=== PATIENT | female | born 1965 | race Caucasian/White ===

== ENCOUNTER 2022-12-24 16:04 | Inpatient (IN) ==
--- NOTE | 2022-12-24 16:24 | ED Triage Note ---
Date of Service December 24, 2022 History of Present Illness This patient was briefly evaluated while in triage. An abbreviated physical exam was performed. This patient is a 57-year-old Female who presents to the ED for evaluation of a low hemoglobin. She was seen at [facility] today and had labs that showed a hemoglobin of 6. She reports she has had rectal bleeding for "years" but it has become worse for the past 6 months. She reports some dizziness. Physical Exam VITALS: Vitals are noted on the nurse's note and reviewed by myself. GENERAL: This is a 57-year-old female, in no acute distress, sitting in triage chair. SKIN: The skin was without rashes. Pallor noted. HEART: Regular rate and rhythm without murmurs gallops or rubs. LUNGS: Clear to auscultation bilaterally without wheezes, rales or rhonchi. NEURO: Patient was alert and oriented to person place and time. Initial orders for labs and / or imaging were placed and patient was placed in the waiting area until a bed is available. Please see further documentation for the full ED course. MDM / Impression Impression Impression: Acute GI bleeding, Anemia Impression: Anemia Qualifiers: Anemia type: unspecified type Qualified Code(s): D64.9 - Anemia, unspecified
--- NOTE | 2022-12-24 16:38 | Emergency Department Note ---
Impression & Plan Acute GI bleeding, Anemia ED Provider Note NAME: ROSA ELENA BA AGE: 57 SEX: F : 1965 ARRIVES VIA: Walk-In INFORMANT: Patient, ED PROVIDER(S): Drake Gonzales DO CHIEF COMPLAINT: GI bleeding HPI: The patient is a 57-year-old female who presented to the emergency department for an evaluation of GI bleeding. The patient has been having symptoms for proxy 1 year. She has not had a colonoscopy but she is scheduled for colonoscopy with roll forger at [facility]. The patient states that she had outpatient labs done and sent to the emergency department for an evaluation because her hemoglobin is very low. She denies having any vomiting. She denies having any hematemesis. She denies having any abdominal pain. She denies having any chest pain or difficulty breathing. The patient states that she did not have a rectal exam done recently but she has had bright red bleeding from her stools over the last couple days. ROS: See above HPI for pertinent positives & negatives. A total of 10 systems reviewed and were otherwise negative. PAST MEDICAL HISTORY: See Below PAST SURGICAL HISTORY: See Below FAMILY HISTORY: See Below SOCIAL HISTORY: See Below HOME MEDICATIONS: See Below ALLERGIES: See Below VITALS: See Below PHYSICAL EXAMINATION: GENERAL: Patient is awake alert in no acute distress patient is resting comfortably and showing no signs of anxiety EYES: The conjunctivae are pale. The pupils are round and reactive. EARS, NOSE, MOUTH AND THROAT: The nose is without any evidence of any deformity. NECK: The neck is nontender and supple. RESPIRATORY: Diminished breath sounds are noted in the right lung field. There is no tachypnea or conversational dyspnea. There is no specific wheezing. CARDIOVASCULAR: Regular rate and rhythm noted there no murmurs rubs or gallops normal S1 normal S2. GASTROINTESTINAL: The abdomen is soft. Abdomen is nontender. MUSCULOSKELETAL/EXTREMITIES: There is no evidence of gross deformity full range of motion is noted in the hips and shoulders. SKIN: There is no obvious evidence of any rash. There are no petechiae, pallor or cyanosis noted. NEUROLOGIC: Patient is awake alert and oriented x3 MEDICAL DECISION MAKING: The patient is a 57-year-old female who presented to the emergency department at the request of her primary care physician for an evaluation of ongoing GI bleeding. The patient's had lower GI bleeding for quite some time. She was seen and had outpatient labs which revealed a significant anemia. She was sent to the emergency department for further evaluation. I discussed the patient's laboratory results with her. I discussed her condition with the on-call [facility]. They have agreed to evaluate the patient in the emergency department for further management and disposition. Triage Nursing notes reviewed. Prior medical records reviewed Vital Signs: reviewed and remarkable for elevated blood pressure. Differential diagnosis: Diverticulosis, AVM, coagulopathy, colitis, inflammatory bowel disease, malignancy, Linda-Anderson tear, esophagitis, peptic ulcer disease, variceal bleed, gastritis, epistaxis, fissure, hemorrhoids, as well as other pathologies. ER treatment provided: See below Diagnostics interpreted by me: ECG: EKG was obtained in the emergency department. My interpretation is normal sinus rhythm at 90 bpm. There is no ectopy. There is no acute ST segment abnormalities noted. No previous tracing was available. Cardiac Monitoring: An order was placed for continuous cardiac monitoring. The monitor shows a rate of 76 bpm with sinus rhythm. Laboratory studies: As stated above and show below. Imaging studies: See below. Consultation(s): I discussed this case with Latoya who is on-call for the [facility] group. Past Med/Surg History Medical History Alcohol abuse Alcohol intoxication Anxiety Bipolar affect, depressed Depression Essential hypertension Feeling suicidal History of peptic ulcer Hypokalemia Hypomagnesemia Hyponatremia Hyponatremia Seizure Surgical History S/P D&C (status post dilation and curettage) Social History Smoking Status: Former smoker Preferred Language: Chinese Feels Safe at Home: Yes Allergies Allergies Allergy/AdvReac Type Severity Reaction Status Date / Time No Known Allergies Allergy Unverified 12/24/22 17:07 Home Meds Home Medications Medication Instructions Recorded Confirmed buspirone 7.5 mg tablet 15 mg PO BID 12/24/22 12/24/22 lisinopril 40 mg tablet 40 mg PO DAILY 12/24/22 12/24/22 magnesium oxide 400 mg (241.3 mg 800 mg PO DAILY 12/24/22 12/24/22 magnesium) tablet metoprolol tartrate 25 mg tablet 25 mg PO BID 12/24/22 12/24/22 multivitamin 1 tab PO DAILY 12/24/22 12/24/22 sertraline 100 mg tablet 100 mg PO DAILY 12/24/22 12/24/22 Results & Data (ED) Vital Signs Vital Signs - 24 hr 12/24/22 16:19 12/24/22 16:31 12/24/22 16:31 Temperature 36.5 C Temperature Source Oral Pulse Rate 90 Pulse Rate [Apical] 92 H Respiratory Rate 20 18 Respiratory Effort / Characteristics Non-Labored Spontaneous Non-Labored Respiratory Depth Normal Normal Respiratory Pattern Regular Blood Pressure 166/80 H Blood Pressure [Right Arm] 180/117 H Blood Pressure Mean 108 Blood Pressure Mean [Right Arm] 138 Pulse Oximetry 97 100 100 Oxygen Delivery Method Room Air Room Air Room Air Sepsis New/Unexplained Change in Mental Status N/A Sepsis Action Taken by Nursing No Action Required 12/24/22 16:48 12/24/22 17:33 12/24/22 18:31 Temperature Temperature Source Pulse Rate 86 Pulse Rate [Apical] 85 Respiratory Rate 18 Respiratory Effort / Characteristics Non-Labored Respiratory Depth Normal Respiratory Pattern Regular Blood Pressure Blood Pressure [Right Arm] 154/80 H Blood Pressure Mean Blood Pressure Mean [Right Arm] 104 Pulse Oximetry 98 98 Oxygen Delivery Method Room Air Room Air Sepsis New/Unexplained Change in Mental Status Sepsis Action Taken by Nursing 12/24/22 18:31 12/24/22 19:20 12/24/22 19:35 Temperature 37.0 C 36.9 C Temperature Source Oral Oral Pulse Rate 84 79 Pulse Rate [Apical] 80 Respiratory Rate 18 19 49 H Respiratory Effort / Characteristics Non-Labored Respiratory Depth Normal Respiratory Pattern Blood Pressure 163/45 H 158/95 H Blood Pressure [Right Arm] 155/88 H Blood Pressure Mean 84 116 Blood Pressure Mean [Right Arm] 110 Pulse Oximetry 99 100 100 Oxygen Delivery Method Room Air Sepsis New/Unexplained Change in Mental Status Sepsis Action Taken by Nursing 12/24/22 19:50 Temperature 37 C Temperature Source Oral Pulse Rate 76 Pulse Rate [Apical] Respiratory Rate 18 Respiratory Effort / Characteristics Respiratory Depth Respiratory Pattern Blood Pressure 159/62 H Blood Pressure [Right Arm] Blood Pressure Mean 94 Blood Pressure Mean [Right Arm] Pulse Oximetry 100 Oxygen Delivery Method Sepsis New/Unexplained Change in Mental Status Sepsis Action Taken by Jail Medications Current Medication List: was personally reviewed by me Laboratory Data Attestation: I reviewed the patient's lab results. 12/24/22 16:43 12/24/22 16:43 Lab Results 12/24/22 12/24/22 12/24/22 Range/Units 16:43 16:43 16:43 WBC 7.11 (4.8-10.8) K/ul RBC 2.83 L (4.20-5.40) M/uL Hgb 6.2 L* (12.0-16.0) g/dl Hct 20.0 L* (37.0-47.0) % MCV 70.7 L (80.0-100.0) fL MCH 21.9 L (25.0-34.0) pg MCHC 31.0 L (32.0-36.0) g/dL RDW Std Deviation 42.6 (36.4-46.3) fL RDW Coeff of Kendall 16.8 H (11.5-14.5) % Plt Count 302 (130-400) K/uL MPV 9.3 L (9.4-12.4) fL Immature Gran % (Auto) 0.3 % Neut % (Auto) 60.0 % Lymph % (Auto) 28.3 % Hudspeth % (Auto) 10.8 % Eos % (Auto) 0.3 % Baso % (Auto) 0.3 % Neut # (Auto) 4.27 (1.40-6.50) K/uL Lymph # (Auto) 2.01 (1.2-3.4) K/uL Hudspeth # (Auto) 0.77 H (0.11-0.59) K/uL Eos # (Auto) 0.02 (0-0.50) K/uL Baso # (Auto) 0.02 (0-0.2) K/uL Immature Gran # (Auto) 0.02 (0.01-0.20) K/uL Polychromasia 1+ Hypochromasia Present Microcytosis Present PT 11.0 (9.0-12.0) Seconds INR 1.0 (0.9-1.1) APTT 24.3 (21.0-31.0) Seconds PTT Ratio 0.9 Sodium (136-145) mmol/L Potassium (3.5-5.1) mmol/L Chloride (98-107) mmol/L Carbon Dioxide (21-32) mmol/L Anion Gap (3-11) BUN (6-23) mg/dl Creatinine (0.6-1.2) mg/dl Est Cr Clr Drug Dosing ml/min Est GFR ( Amer) ml/min Est GFR (Non-Af Amer) ml/min BUN/Creatinine Ratio (10-20) Glucose (70-99(Fasting)) mg/dl Calcium (8.6-10.3) mg/dl Total Bilirubin (0.2-1.0) mg/dl AST (13-39) U/L ALT (7-52) U/L Alkaline Phosphatase (34-104) U/L Total Protein (6.0-8.3) gm/dl Albumin (3.4-5.0) gm/dl Globulin (2.5-4.0) gm/dl Albumin/Globulin Ratio (0.9-2) SARS-CoV-2, RNA, NAAT (NEGATIVE) Blood Type O Positive Blood Type Recheck Antibody Screen NEGATIVE Crossmatch See Detail 12/24/22 12/24/22 12/24/22 Range/Units 16:43 17:12 17:48 WBC (4.8-10.8) K/ul RBC (4.20-5.40) M/uL Hgb (12.0-16.0) g/dl Hct (37.0-47.0) % MCV (80.0-100.0) fL MCH (25.0-34.0) pg MCHC (32.0-36.0) g/dL RDW Std Deviation (36.4-46.3) fL RDW Coeff of Kendall (11.5-14.5) % Plt Count (130-400) K/uL MPV (9.4-12.4) fL Immature Gran % (Auto) % Neut % (Auto) % Lymph % (Auto) % Hudspeth % (Auto) % Eos % (Auto) % Baso % (Auto) % Neut # (Auto) (1.40-6.50) K/uL Lymph # (Auto) (1.2-3.4) K/uL Hudspeth # (Auto) (0.11-0.59) K/uL Eos # (Auto) (0-0.50) K/uL Baso # (Auto) (0-0.2) K/uL Immature Gran # (Auto) (0.01-0.20) K/uL Polychromasia Hypochromasia Microcytosis PT (9.0-12.0) Seconds INR (0.9-1.1) APTT (21.0-31.0) Seconds PTT Ratio Sodium 132 L (136-145) mmol/L Potassium 4.0 (3.5-5.1) mmol/L Chloride 97 L (98-107) mmol/L Carbon Dioxide 23 (21-32) mmol/L Anion Gap 12 H (3-11) BUN 9 (6-23) mg/dl Creatinine 0.58 L (0.6-1.2) mg/dl Est Cr Clr Drug Dosing 82.6 ml/min Est GFR ( Amer) 116.9 ml/min Est GFR (Non-Af Amer) 100.9 ml/min BUN/Creatinine Ratio 15.5 (10-20) Glucose 92 (70-99(Fasting)) mg/dl Calcium 8.9 (8.6-10.3) mg/dl Total Bilirubin 0.3 (0.2-1.0) mg/dl AST 55 H (13-39) U/L ALT 17 (7-52) U/L Alkaline Phosphatase 85 (34-104) U/L Total Protein 7.0 (6.0-8.3) gm/dl Albumin 4.2 (3.4-5.0) gm/dl Globulin 2.8 (2.5-4.0) gm/dl Albumin/Globulin Ratio 1.5 (0.9-2) SARS-CoV-2, RNA, NAAT NEGATIVE (NEGATIVE) Blood Type Blood Type Recheck O Positive Antibody Screen Crossmatch Discharge Plan Visit Data Chief Complaint: Referred by Doctor Stated Complaint: REF BY DOC,BLOOD TRANSFUSION ED Provider: Drake Gonzales Discharge Problem: Acute GI bleeding, Anemia Patient Disposition: Being Evaluated by Hospitalist Forms Stand Alone Forms: My [facility] Prescriptions Prescriptions: No Action multivitamin Tablet 1 tab PO DAILY sertraline 100 mg tablet 100 mg PO DAILY magnesium oxide 400 mg (241.3 mg magnesium) tablet 800 mg PO DAILY buspirone 7.5 mg tablet 15 mg PO BID lisinopril 40 mg tablet 40 mg PO DAILY metoprolol tartrate 25 mg tablet 25 mg PO BID Referrals Referrals: Zaid Bray [Outside Practitioners] -
[2022-12-24 17:18] LABS: Albumin Globulin Ratio 1.5 (0.9-2); Albumin Level 4.2 gm/dl (3.4-5.0); BUN Creatinine Ratio 15.5 (10-20); Bilirubin,Total 0.3 mg/dl (0.2-1.0); Calcium 8.9 mg/dl (8.6-10.3); Creatinine Clr Calc Pharmacy 82.6 ml/min; Est GFR (African American) 116.9 ml/min; Est GFR (Non-African American) 100.9 ml/min; Globulin 2.8 gm/dl (2.5-4.0)
[2022-12-24 17:22] LABS: Hemoglobin 6.2 g/dl (12.0-16.0); Mean Corpuscular Hemoglobin 21.9 pg (25.0-34.0); Mean Corpuscular Volume 70.7 fL (80.0-100.0); Mean Platelet Volume 9.3 fL (9.4-12.4); Platelet Count 302 K/uL (130-400); RDW Coefficient of Variation 16.8 % (11.5-14.5); RDW Standard Deviation 42.6 fL (36.4-46.3); Red Blood Count 2.83 M/uL (4.20-5.40); White Blood Count 7.11 K/ul (4.8-10.8)
[2022-12-24 17:31] LABS: Basophils # (auto) 0.02 K/uL (0-0.2); Basophils % (auto) 0.3 %; Eosinophils # (auto) 0.02 K/uL (0-0.50); Eosinophils % (auto) 0.3 %; Hypochromasia Present; Immature Granulocytes # (auto) 0.02 K/uL (0.01-0.20); Immature Granulocytes % (auto) 0.3 %; Lymphocytes # (auto) 2.01 K/uL (1.2-3.4); Lymphocytes % (auto) 28.3 %; Microcytosis Present; Monocytes # (auto) 0.77 K/uL (0.11-0.59); Monocytes % (auto) 10.8 %; Neutrophils # (auto) 4.27 K/uL (1.40-6.50); Partial Thromboplastin Ratio 0.9; Partial Thromboplastin Time 24.3 Seconds (21.0-31.0); Polychromasia 1+
[2022-12-24] MEDS ORDERED: SODIUM CHLORIDE 0.9% 250 ML IV PRN (18:38)
--- NOTE | 2022-12-24 20:38 | History & Physical Report ---
Date of Service December 24, 2022 Assessment & Plan (1) Anemia: (2) GI bleeding: Plan: Admit to [facility] with telemetry Patient presenting by referral of outpatient hematology office after outpatient labs showed Hgb 6.5. Patient initially found to have iron deficiency anemia 09/2022 with Hgb 7.3. No history of colonoscopy or EGD. Has colonoscopy scheduled in the coming weeks. Was referred to hematology for evaluation of AVA. Outpatient labs today showed Hgb 6.5. Patient reports bright red bleeding per rectum with clots for the past 2 years. Currently hemodynamically stable History of chronic alcohol use, LFTs WNL Will transfuse 1 unit PRBC, follow-up H&H Clear liquids, n.p.o. after midnight GI consult (3) Acute electrocardiogram changes: Plan: EKG shows mild ST depressions in the lateral leads, may be due to anemia No reports of chest pain Follow-up EKG in a.m. (4) Alcohol abuse: Plan: Patient reports drinking 6-9 16 oz beers/day Last drink this morning Alcohol withdrawal protocol with gabapentin and as needed Ativan (5) Essential hypertension: Plan: Continue metoprolol and lisinopril (6) Seizure: Plan: Patient reports history of seizure however not on any AED (7) Bipolar affect, depressed: Plan: Continue buspirone and sertraline DVT PROPHYLAXIS SCDs due to GI bleeding Patient seen in collaboration with Dr. Cade. I spent a total of 75 minutes coordinating, documenting, and providing care for this patient excluding time spent in the performance of separately billed services. This included personally reviewing all current laboratories and imaging studies, medication reconciliation, outpatient chart review, and discussion with specialists. History of Present Illness Chief Complaint: Referred for anemia Primary Care Provider: Shelli Ritter MD 57-year-old female with PMH HTN, bipolar disorder, depression, HTN, history of seizure not on AED, chronic alcohol abuse, and other problems listed below who presents to the ED by referral of hematology for evaluation of anemia. History obtained from patient and review of outpatient PCP and hematology records. Patient was found to have iron deficiency anemia with Hgb 7.3 09/2022. Patient was referred to hematology for evaluation. Patient reports bright red bleeding per rectum for the past couple of years. No prior history of colonoscopy or EGD. Has a colonoscopy scheduled. Outpatient labs today showed Hgb 6.5. Patient was referred to the ED for further evaluation. Patient reports feeling lightheaded and dizzy at times. No chest pain or shortness of breath. Denies abdominal pain, nausea, vomiting, diarrhea. No other recent illnesses, fevers, chills. Denies urinary symptoms. In the ED, Hgb 6.2. Patient is hemodynamically stable. Allergies Allergy/AdvReac Type Severity Reaction Status Date / Time No Known Allergies Allergy Unverified 12/24/22 17:07 Home Medications Medication Instructions Recorded Confirmed Type buspirone 7.5 mg tablet 15 mg PO BID 12/24/22 12/24/22 History lisinopril 40 mg tablet 40 mg PO DAILY 12/24/22 12/24/22 History magnesium oxide 400 mg (241.3 mg 800 mg PO DAILY 12/24/22 12/24/22 History magnesium) tablet metoprolol tartrate 25 mg tablet 25 mg PO BID 12/24/22 12/24/22 History multivitamin 1 tab PO DAILY 12/24/22 12/24/22 History sertraline 100 mg tablet 100 mg PO DAILY 12/24/22 12/24/22 History Past Med/Surg History Medical History (Updated 12/24/22 @ 20:34 by SENG Hernandez) Alcohol abuse Anxiety Bipolar affect, depressed Depression Essential hypertension Feeling suicidal Fracture of lumbar spine History of peptic ulcer Seizure Surgical History S/P D&C (status post dilation and curettage) Social History (Updated 12/24/22 @ 20:33 by SENG Hernandez) Smoking Status: Former smoker Hx Alcohol Use: Yes Alcohol type: beer Alcohol Intake Frequency: 4 or More x per/Week Alcohol Intake Frequency Comment: 6-9 16oz beer/day Preferred Language: Mauritanian Feels Safe at Home: Yes Review of Systems Review of Systems: ROS per HPI, all other systems reviewed and negative Physical Exam Physical Exam: Please refer to Dr. Cade's addendum for physical exam Results & Data Results & Data Vital Signs (Past 12 Hours) Vital Signs Temp Pulse Pulse Resp BP BP Pulse Ox 12/24/22 20:20 36.9 C 80 17 159/108 H 100 12/24/22 19:50 37 C 76 18 159/62 H 100 12/24/22 19:35 36.9 C 79 49 H 158/95 H 100 12/24/22 19:20 37.0 C 84 19 163/45 H 100 12/24/22 18:31 80 18 155/88 H 99 12/24/22 18:31 98 12/24/22 17:33 85 18 154/80 H 98 12/24/22 16:48 86 12/24/22 16:31 100 12/24/22 16:31 92 H 18 180/117 H 100 12/24/22 16:19 36.5 C 90 20 166/80 H 97 O2 Del Method 12/24/22 20:20 12/24/22 19:50 12/24/22 19:35 12/24/22 19:20 12/24/22 18:31 Room Air 12/24/22 18:31 Room Air 12/24/22 17:33 Room Air 12/24/22 16:48 12/24/22 16:31 Room Air 12/24/22 16:31 Room Air 12/24/22 16:19 Room Air Laboratory Results Short CBC 12/24/22 Range/Units 16:43 WBC 7.11 (4.8-10.8) K/ul Hgb 6.2 L* (12.0-16.0) g/dl Hct 20.0 L* (37.0-47.0) % Plt Count 302 (130-400) K/uL BMP 12/24/22 16:43 Sodium 132 L Potassium 4.0 Chloride 97 L Carbon Dioxide 23 BUN 9 Creatinine 0.58 L Glucose 92 Calcium 8.9 Liver Function 12/24/22 Range/Units 16:43 Total Bilirubin 0.3 (0.2-1.0) mg/dl AST 55 H (13-39) U/L ALT 17 (7-52) U/L Alkaline Phosphatase 85 (34-104) U/L Albumin 4.2 (3.4-5.0) gm/dl Code Status & VTE Plan VTE Prophylaxis Plan VTE Prophylaxis will be ordered: Yes Supervising Physician Co-Signing Physician Notes Patient is a 57-year-old female with history of alcohol use disorder, bipolar disorder and other medical problems was referred by hematology for further evaluation of anemia. Patient states having ongoing rectal bleeding since many months intermittently. She does have history of iron deficiency anemia. She denies any ulcer disease, NSAIDs use, aspirin use. No known history of EGD, colonoscopy. Also denies any melena. Does admit to have dizziness and some dyspnea on exertion. Please review HPI for complete details of presentation. I personally reviewed blood work and EKG. hemoglobin noted to be 6.2, hematocrit 20, MCV 70.7, sodium 132, EKG showed nonspecific ST changes. Physical Exam: Vitals signs as noted above General Appearance:Moderately built and nourished, no apparent distress Head: normocephalic, Atraumatic Eyes: normal inspection, EOMI, Pale Neck: supple, Trachea midline Respiratory/Chest: Normal breath sounds, CTA, No accessory muscle use Cardiovascular: S1, S2, No murmur Abdomen/GI:Soft, Non tender, Bowel sounds present Extremities/Musculoskeletal:normal inspection, 2+ Pedal edema Neurologic/Psych:AAOX3, grossly no focal neurological deficits Skin: normal color, warm Rectal bleeding Acute on chronic blood loss anemia Iron deficiency anemia Consulted GI Transfuse PRBCs as needed Monitor H&H Empirically on IV Protonix N.p.o. after midnight Avoid anticoagulation, NSAIDs, aspirin Anemia work-up Hyponatremia Secondary to alcohol use disorder Alcohol abuse Monitor for withdrawal Agree with gabapentin protocol I personally reviewed the record. Patient is interviewed and examined at bedside. Patient's care is coordinated with Vanessa White NP. Please refer to the documentation above for details of patient's presentation and for discussion of other issues. (1) Anemia Anemia type: unspecified type Qualified Code(s): D64.9 - Anemia, unspecified
[2022-12-24] MEDS ORDERED: LORazepam 2 MG/1 ML VIAL IV PRN ×3 (20:57)
[2022-12-24] MEDS ORDERED: CEROVITE ADV FORMULA TAB PO STA (20:57)
[2022-12-24] MEDS ORDERED: Ativan IV Alcohol Withdrawal--Active Protocol IV PRN (20:57)
[2022-12-24] MEDS ORDERED: ACETAMINOPHEN 325 MG TAB PO PRN (20:57)
[2022-12-24] MEDS ORDERED: GABAPENTIN 1200MG ALCOHOL WITHDRAWAL LOAD PO STA (20:57)
[2022-12-24] MEDS ORDERED: THIAMINE HCL 100 MG, FOLIC ACID 1 MG in SODIUM CHLORIDE 0.9% 1000ML 1,000 ML IV SCH (21:15)
[2022-12-24] MEDS ORDERED: GABAPENTIN 600 MG TAB PO ONE (21:15)
[2022-12-24] MEDS: busPIRone 7.5 MG TAB PO SCH (22:31)
[2022-12-24] MEDS: METOPROLOL TARTRATE 25 MG TAB PO SCH (22:31)
[2022-12-24] MEDS: PANTOprazole 40 MG in SYRINGE 0 ML IV SCH (22:32)
[2022-12-24 23:32] LABS: Hematocrit (blood only) 23.8 % (37.0-47.0); Hemoglobin 7.4 g/dl (12.0-16.0)
[2022-12-25] MEDS: GABAPENTIN 600 MG TAB PO SCH ×3 (04:19→16:55)
[2022-12-25 06:28] LABS: Hemoglobin 7.3 g/dl (12.0-16.0); Mean Corpuscular Hemoglobin 24.6 pg (25.0-34.0); Mean Corpuscular Hgb Conc 31.7 g/dL (32.0-36.0); Mean Corpuscular Volume 77.4 fL (80.0-100.0); Mean Platelet Volume 9.1 fL (9.4-12.4); Platelet Count 228 K/uL (130-400); RDW Coefficient of Variation 18.9 % (11.5-14.5); RDW Standard Deviation 52.4 fL (36.4-46.3); Red Blood Count 2.97 M/uL (4.20-5.40); White Blood Count 4.09 K/ul (4.8-10.8)
[2022-12-25 07:41] LABS: Vitamin B12 368 pg/ml (180-914)
[2022-12-25 07:58] LABS: Magnesium 1.5 mg/dl (1.7-2.4); Potassium 3.6 mmol/L (3.5-5.1)
[2022-12-25 08:04] LABS: Creatinine Clr Calc Pharmacy 91.4 ml/min; Est GFR (African American) 122.8 ml/min; Est GFR (Non-African American) 105.9 ml/min
[2022-12-25] MEDS: FOLIC ACID 1 MG TAB PO SCH (08:12)
[2022-12-25] MEDS: lisinopril 40 MG TAB PO SCH (08:12)
[2022-12-25] MEDS: busPIRone 7.5 MG TAB PO SCH ×2 (08:12→20:15)
[2022-12-25] MEDS: MULTIVITAMIN TAB PO SCH (08:13)
[2022-12-25] MEDS: SERTRALINE HCL 100 MG TABLET PO SCH (08:13)
[2022-12-25] MEDS: MAGNESIUM OXIDE 400 MG TAB PO SCH (08:13)
[2022-12-25] MEDS: THIAMINE HCL 100 MG TAB PO SCH (08:13)
[2022-12-25] MEDS: METOPROLOL TARTRATE 25 MG TAB PO SCH ×2 (08:13→20:15)
[2022-12-25] MEDS ORDERED: MAGNESIUM SULFATE / D5W 1 GM/100 ML BAG IV ONE (08:16)
--- NOTE | 2022-12-25 09:19 | Gastrointestinal Consultation ---
Date of Consultation December 25, 2022 Assessment & Plan (1) Anemia: Pleasant woman with iron deficiency anemia. By definition this is a chronic process and if she should so choose she could go home and keep her appointment for colonoscopy as outpatient. However, after discussion she has decided to stay and have EGD and colonoscopy done on Tuesday. I will set this up for [facility] on Tuesday History of Present Illness Reason for Consultation: anemia Attending Physician: Thuan Cade MD History of Present Illness 57 year old female admitted because her doctor told her to come to the hospital for anemia. She has had hematochezia for two years although it has worsened over the last six months. Her PCP checked her blood count, found it low and sent her to hematology. She has not had EGD or colonoscopy ever although she is set up for colonoscopy at [facility] on January 12--initially set up at [facility] but with her anemia they told her it should be done at [facility]. She denies any heartburn or indigestion. She has normal bowel movements except for the blood. She denies any abdominal pain. Of note she drinks "6-9 pounders per day" and has done so for "years and years". She denies weight loss. She denies NSAID usage Allergies Allergy/AdvReac Type Severity Reaction Status Date / Time No Known Allergies Allergy Unverified 12/24/22 17:07 Home Medications Medication Instructions Recorded Confirmed Type buspirone 7.5 mg tablet 15 mg PO BID 12/24/22 12/24/22 History lisinopril 40 mg tablet 40 mg PO DAILY 12/24/22 12/24/22 History magnesium oxide 400 mg (241.3 mg 800 mg PO DAILY 12/24/22 12/24/22 History magnesium) tablet metoprolol tartrate 25 mg tablet 25 mg PO BID 12/24/22 12/24/22 History multivitamin 1 tab PO DAILY 12/24/22 12/24/22 History sertraline 100 mg tablet 100 mg PO DAILY 12/24/22 12/24/22 History Patient History Medical History Alcohol abuse Anxiety Bipolar affect, depressed Depression Essential hypertension Feeling suicidal Fracture of lumbar spine History of peptic ulcer Seizure Surgical History S/P D&C (status post dilation and curettage) Social History Smoking Status: Never smoker Second Hand Exposure: No; Do You Dip or Chew Tobacco: No; Tobacco Cessation Education Requested by Patient: No Hx Alcohol Use: Yes Alcohol type: beer Alcohol Intake Frequency: 4 or More x per/Week Alcohol Intake Frequency Comment: 6-9 16oz beer/day Hx Substance Use: No Preferred Language: [place] Islander Communication Ability: Effective Trailer Chief Required: No Beliefs That Will Affect Care: None Current Living Situation: Spouse Feels Safe at Home: Yes Safety Concerns: Feels Safe At This Time Assistive Devices: Glasses Review of Systems Review of Systems: All systems reviewed & are unremarkable except as noted in HPI & below Physical Exam Constitutional: WD/WN, vitals as above no acute distress Eyes: PERRL, conjunctivae normal, anicteric sclerae ENMT: external ear and nose normal, oropharynx normal Neck: trachea midline, no thyromegaly Respiratory: normal respiratory effort, lungs clear to auscultation Cardiovascular: RRR, no murmur, no edema Gastrointestinal (Abdomen): normal bowel sounds, soft, nontender, no hepatosplenomegaly Musculoskeletal: Extremities: no cyanosis and no clubbing Skin: no rashes, warm and dry Neurologic: PERRL, EOMI, accommodation nl, no face palsy, no dysarthria Psychiatric: Orientation: alert and oriented x 3 Results & Data Vital Signs (Past 12 Hours) Vital Signs Temp Pulse Pulse Pulse Resp BP BP 12/25/22 07:47 36.7 C 79 16 158/89 H 12/25/22 07:18 75 12/25/22 04:39 36.9 C 72 20 157/77 H 12/24/22 22:00 36.6 C 90 18 176/84 H 12/24/22 23:47 77 12/24/22 23:41 12/24/22 21:20 36.5 C 80 18 180/89 H Pulse Ox O2 Del Method 12/25/22 07:47 98 Room Air 12/25/22 07:18 12/25/22 04:39 96 Room Air 12/24/22 22:00 100 Room Air 12/24/22 23:47 12/24/22 23:41 Room Air 12/24/22 21:20 99 Room Air Laboratory Results 12/25/22 12/25/22 12/25/22 Range/Units 05:51 05:51 05:51 WBC (4.8-10.8) K/ul RBC (4.20-5.40) M/uL Hgb (12.0-16.0) g/dl Hct (37.0-47.0) % MCV (80.0-100.0) fL MCH (25.0-34.0) pg MCHC (32.0-36.0) g/dL RDW Std Deviation (36.4-46.3) fL RDW Coeff of Kendall (11.5-14.5) % Plt Count (130-400) K/uL MPV (9.4-12.4) fL Immature Gran % (Auto) % Neut % (Auto) % Lymph % (Auto) % [place] % (Auto) % Eos % (Auto) % Baso % (Auto) % Neut # (Auto) (1.40-6.50) K/uL Lymph # (Auto) (1.2-3.4) K/uL [place] # (Auto) (0.11-0.59) K/uL Eos # (Auto) (0-0.50) K/uL Baso # (Auto) (0-0.2) K/uL Immature Gran # (Auto) (0.01-0.20) K/uL Polychromasia Hypochromasia Microcytosis Peripher Smr Path Cons PT (9.0-12.0) Seconds INR (0.9-1.1) APTT (21.0-31.0) Seconds PTT Ratio Sodium 138 (136-145) mmol/L Potassium 3.6 (3.5-5.1) mmol/L Chloride 106 (98-107) mmol/L Carbon Dioxide 25 (21-32) mmol/L Anion Gap 7 (3-11) BUN 6 (6-23) mg/dl Creatinine 0.50 L (0.6-1.2) mg/dl Est Cr Clr Drug Dosing 91.4 ml/min Est GFR ( Amer) 122.8 ml/min Est GFR (Non-Af Amer) 105.9 ml/min BUN/Creatinine Ratio 12.0 (10-20) Glucose 87 (70-99(Fasting)) mg/dl Calcium 8.0 L (8.6-10.3) mg/dl Magnesium 1.5 L (1.7-2.4) mg/dl Iron 21 L (35-150) mcg/dl Unsaturated IBC 312 (155-355) mcg/dl Transferrin 266 (200-360) mg/dl Ferritin 15.0 (8-388) ng/ml Total Bilirubin (0.2-1.0) mg/dl AST (13-39) U/L ALT (7-52) U/L Alkaline Phosphatase (34-104) U/L Total Protein (6.0-8.3) gm/dl Albumin (3.4-5.0) gm/dl Globulin (2.5-4.0) gm/dl Albumin/Globulin Ratio (0.9-2) Vitamin B12 368 (180-914) pg/ml Folate > 22.30 (>5.38) ng/ml SARS-CoV-2, RNA, NAAT (NEGATIVE) Blood Type Blood Type Recheck Antibody Screen Crossmatch 12/25/22 12/24/22 12/24/22 Range/Units 05:51 22:54 17:48 WBC 4.09 L (4.8-10.8) K/ul RBC 2.97 L (4.20-5.40) M/uL Hgb 7.3 L 7.4 L (12.0-16.0) g/dl Hct 23.0 L 23.8 L (37.0-47.0) % MCV 77.4 L D (80.0-100.0) fL MCH 24.6 L (25.0-34.0) pg MCHC 31.7 L (32.0-36.0) g/dL RDW Std Deviation 52.4 H (36.4-46.3) fL RDW Coeff of Kendall 18.9 H (11.5-14.5) % Plt Count 228 (130-400) K/uL MPV 9.1 L (9.4-12.4) fL Immature Gran % (Auto) % Neut % (Auto) % Lymph % (Auto) % [place] % (Auto) % Eos % (Auto) % Baso % (Auto) % Neut # (Auto) (1.40-6.50) K/uL Lymph # (Auto) (1.2-3.4) K/uL [place] # (Auto) (0.11-0.59) K/uL Eos # (Auto) (0-0.50) K/uL Baso # (Auto) (0-0.2) K/uL Immature Gran # (Auto) (0.01-0.20) K/uL Polychromasia Hypochromasia Microcytosis Peripher Smr Path Cons PT (9.0-12.0) Seconds INR (0.9-1.1) APTT (21.0-31.0) Seconds PTT Ratio Sodium (136-145) mmol/L Potassium (3.5-5.1) mmol/L Chloride (98-107) mmol/L Carbon Dioxide (21-32) mmol/L Anion Gap (3-11) BUN (6-23) mg/dl Creatinine (0.6-1.2) mg/dl Est Cr Clr Drug Dosing ml/min Est GFR ( Amer) ml/min Est GFR (Non-Af Amer) ml/min BUN/Creatinine Ratio (10-20) Glucose (70-99(Fasting)) mg/dl Calcium (8.6-10.3) mg/dl Magnesium (1.7-2.4) mg/dl Iron (35-150) mcg/dl Unsaturated IBC (155-355) mcg/dl Transferrin (200-360) mg/dl Ferritin (8-388) ng/ml Total Bilirubin (0.2-1.0) mg/dl AST (13-39) U/L ALT (7-52) U/L Alkaline Phosphatase (34-104) U/L Total Protein (6.0-8.3) gm/dl Albumin (3.4-5.0) gm/dl Globulin (2.5-4.0) gm/dl Albumin/Globulin Ratio (0.9-2) Vitamin B12 (180-914) pg/ml Folate (>5.38) ng/ml SARS-CoV-2, RNA, NAAT (NEGATIVE) Blood Type Blood Type Recheck O Positive Antibody Screen Crossmatch 12/24/22 12/24/22 12/24/22 Range/Units 17:12 16:43 16:43 WBC (4.8-10.8) K/ul RBC (4.20-5.40) M/uL Hgb (12.0-16.0) g/dl Hct (37.0-47.0) % MCV (80.0-100.0) fL MCH (25.0-34.0) pg MCHC (32.0-36.0) g/dL RDW Std Deviation (36.4-46.3) fL RDW Coeff of Kendall (11.5-14.5) % Plt Count (130-400) K/uL MPV (9.4-12.4) fL Immature Gran % (Auto) % Neut % (Auto) % Lymph % (Auto) % [place] % (Auto) % Eos % (Auto) % Baso % (Auto) % Neut # (Auto) (1.40-6.50) K/uL Lymph # (Auto) (1.2-3.4) K/uL [place] # (Auto) (0.11-0.59) K/uL Eos # (Auto) (0-0.50) K/uL Baso # (Auto) (0-0.2) K/uL Immature Gran # (Auto) (0.01-0.20) K/uL Polychromasia Hypochromasia Microcytosis Peripher Smr Path Cons Pending PT (9.0-12.0) Seconds INR (0.9-1.1) APTT (21.0-31.0) Seconds PTT Ratio Sodium 132 L (136-145) mmol/L Potassium 4.0 (3.5-5.1) mmol/L Chloride 97 L (98-107) mmol/L Carbon Dioxide 23 (21-32) mmol/L Anion Gap 12 H (3-11) BUN 9 (6-23) mg/dl Creatinine 0.58 L (0.6-1.2) mg/dl Est Cr Clr Drug Dosing 82.6 ml/min Est GFR ( Amer) 116.9 ml/min Est GFR (Non-Af Amer) 100.9 ml/min BUN/Creatinine Ratio 15.5 (10-20) Glucose 92 (70-99(Fasting)) mg/dl Calcium 8.9 (8.6-10.3) mg/dl Magnesium (1.7-2.4) mg/dl Iron (35-150) mcg/dl Unsaturated IBC (155-355) mcg/dl Transferrin (200-360) mg/dl Ferritin (8-388) ng/ml Total Bilirubin 0.3 (0.2-1.0) mg/dl AST 55 H (13-39) U/L ALT 17 (7-52) U/L Alkaline Phosphatase 85 (34-104) U/L Total Protein 7.0 (6.0-8.3) gm/dl Albumin 4.2 (3.4-5.0) gm/dl Globulin 2.8 (2.5-4.0) gm/dl Albumin/Globulin Ratio 1.5 (0.9-2) Vitamin B12 (180-914) pg/ml Folate (>5.38) ng/ml SARS-CoV-2, RNA, NAAT NEGATIVE (NEGATIVE) Blood Type Blood Type Recheck Antibody Screen Crossmatch 12/24/22 12/24/22 12/24/22 Range/Units 16:43 16:43 16:43 WBC 7.11 (4.8-10.8) K/ul RBC 2.83 L (4.20-5.40) M/uL Hgb 6.2 L* (12.0-16.0) g/dl Hct 20.0 L* (37.0-47.0) % MCV 70.7 L (80.0-100.0) fL MCH 21.9 L (25.0-34.0) pg MCHC 31.0 L (32.0-36.0) g/dL RDW Std Deviation 42.6 (36.4-46.3) fL RDW Coeff of Kendall 16.8 H (11.5-14.5) % Plt Count 302 (130-400) K/uL MPV 9.3 L (9.4-12.4) fL Immature Gran % (Auto) 0.3 % Neut % (Auto) 60.0 % Lymph % (Auto) 28.3 % [place] % (Auto) 10.8 % Eos % (Auto) 0.3 % Baso % (Auto) 0.3 % Neut # (Auto) 4.27 (1.40-6.50) K/uL Lymph # (Auto) 2.01 (1.2-3.4) K/uL [place] # (Auto) 0.77 H (0.11-0.59) K/uL Eos # (Auto) 0.02 (0-0.50) K/uL Baso # (Auto) 0.02 (0-0.2) K/uL Immature Gran # (Auto) 0.02 (0.01-0.20) K/uL Polychromasia 1+ Hypochromasia Present Microcytosis Present Peripher Smr Path Cons PT 11.0 (9.0-12.0) Seconds INR 1.0 (0.9-1.1) APTT 24.3 (21.0-31.0) Seconds PTT Ratio 0.9 Sodium (136-145) mmol/L Potassium (3.5-5.1) mmol/L Chloride (98-107) mmol/L Carbon Dioxide (21-32) mmol/L Anion Gap (3-11) BUN (6-23) mg/dl Creatinine (0.6-1.2) mg/dl Est Cr Clr Drug Dosing ml/min Est GFR ( Amer) ml/min Est GFR (Non-Af Amer) ml/min BUN/Creatinine Ratio (10-20) Glucose (70-99(Fasting)) mg/dl Calcium (8.6-10.3) mg/dl Magnesium (1.7-2.4) mg/dl Iron (35-150) mcg/dl Unsaturated IBC (155-355) mcg/dl Transferrin (200-360) mg/dl Ferritin (8-388) ng/ml Total Bilirubin (0.2-1.0) mg/dl AST (13-39) U/L ALT (7-52) U/L Alkaline Phosphatase (34-104) U/L Total Protein (6.0-8.3) gm/dl Albumin (3.4-5.0) gm/dl Globulin (2.5-4.0) gm/dl Albumin/Globulin Ratio (0.9-2) Vitamin B12 (180-914) pg/ml Folate (>5.38) ng/ml SARS-CoV-2, RNA, NAAT (NEGATIVE) Blood Type O Positive Blood Type Recheck Antibody Screen NEGATIVE Crossmatch See Detail (1) Anemia Anemia type: unspecified type Qualified Code(s): D64.9 - Anemia, unspecified
[2022-12-25] MEDS: PANTOprazole 40 MG in SYRINGE 0 ML IV SCH ×2 (10:40→20:15)
--- NOTE | 2022-12-25 10:42 | Electrocardiogram Report ---
Test Reason : Blood Pressure : / mmHG Vent. Rate : 090 BPM Atrial Rate : 090 BPM P-R Int : 132 ms QRS Dur : 062 ms QT Int : 352 ms P-R-T Axes : 007 -14 021 degrees QTc Int : 430 ms Normal sinus rhythm Nonspecific ST abnormality Abnormal ECG When compared with ECG of 21-NOV-2013 07:28, Criteria for Septal infarct are no longer Present ST now depressed in Lateral leads Confirmed by Andreas Strong ([id number]) on 12/25/2022 10:42:16 AM Referred By: Nichole Borjas Confirmed By:Andreas Strong
--- NOTE | 2022-12-25 13:25 | Electrocardiogram Report ---
Test Reason : Blood Pressure : / mmHG Vent. Rate : 074 BPM Atrial Rate : 074 BPM P-R Int : 136 ms QRS Dur : 076 ms QT Int : 402 ms P-R-T Axes : 008 031 049 degrees QTc Int : 446 ms Normal sinus rhythm Normal ECG When compared with ECG of 24-DEC-2022 16:32, (unconfirmed) ST no longer depressed in Lateral leads Nonspecific T wave abnormality no longer evident in Inferior leads Confirmed by Andreas Strong ([id number]) on 12/25/2022 1:25:32 PM Referred By: Nichole Borjas Confirmed By:Andreas Strong
--- NOTE | 2022-12-25 15:34 | Hospitalist Progress Note ---
Date of Service December 25, 2022 Assessment & Plan (1) Anemia: (2) GI bleeding: Plan: Rectal bleeding Acute on chronic blood loss anemia Iron deficiency anemia S/P 1 unit PRBCs Marrow suppression from significant alcohol abuse also likely contributing to anemia Continue PPI for now Monitor H&H and transfuse as needed Appreciate GI input Full liquid diet today Likely EGD, colonoscopy on Tuesday We will give IV Venofer today Hyponatremia Likely secondary to alcohol use Monitor sodium levels Chronic hypomagnesemia Replete electrolytes as needed Chronic leg edema Likely secondary to venous stasis -ECHO: Left ventricle is normal in size. Normal left ventricle wall thickness. Left ventricle wall motion is normal. EF 60 to 65%. No significant valve disease. Diastolic function parameters are normal. Monitor (3) Acute electrocardiogram changes: Plan: EKG shows non specific ST changes, may be due to anemia Denies chest pain, dyspnea ECHO showed no wall motion abnormality (4) Alcohol abuse: Plan: Patient reports drinking 6-9 16 oz beers/day Continue protocol with gabapentin and as needed Ativan Continue Triamine, folic acid Monitor for withdrawal (5) Essential hypertension: Plan: Continue metoprolol and lisinopril (6) Seizure: Plan: Patient reports history of seizure however not on any AED Monitor (7) Bipolar affect, depressed: Plan: Continue buspirone and sertraline DVT Px SCDs Re: GI bleeding Admission and Anticipated Discharge Date Admission Date: December 24, 2022 Subjective Patient is seen and examined at bedside Denies having any rectal bleeding overnight or this morning Also denies any chest pain, dyspnea, dizziness, nausea, abdominal pain, tremor, anxiety We will advance diet today Review of Systems Review of Systems: All systems reviewed & are unremarkable except as noted in Subjective Physical Exam Physical Exam: Physical Exam: Vitals signs as noted above General Appearance:Moderately built and nourished, no apparent distress Head: normocephalic, Atraumatic Eyes: normal inspection, EOMI, Pale Neck: supple, Trachea midline Respiratory/Chest: Normal breath sounds, CTA, No accessory muscle use Cardiovascular: S1, S2, No murmur Abdomen/GI:Soft, Non tender, Bowel sounds present Extremities/Musculoskeletal:normal inspection, 1+ Pedal edema Neurologic/Psych:AAOX3, grossly no focal neurological deficits Skin: normal color, warm Results & Data Results & Data Vital Signs (Past 12 Hours) Vital Signs Temp Pulse Pulse Resp BP BP Pulse Ox 12/25/22 11:39 36.8 C 73 20 156/81 H 99 12/25/22 07:47 36.7 C 79 16 158/89 H 98 12/25/22 07:18 75 12/25/22 04:39 36.9 C 72 20 157/77 H 96 O2 Del Method 12/25/22 11:39 Room Air 12/25/22 07:47 Room Air 12/25/22 07:18 12/25/22 04:39 Room Air Laboratory Results Short CBC 12/24/22 12/24/22 12/25/22 Range/Units 16:43 22:54 05:51 WBC 7.11 4.09 L (4.8-10.8) K/ul Hgb 6.2 L* 7.4 L 7.3 L (12.0-16.0) g/dl Hct 20.0 L* 23.8 L 23.0 L (37.0-47.0) % Plt Count 302 228 (130-400) K/uL BMP 12/24/22 12/25/22 16:43 05:51 Sodium 132 L 138 Potassium 4.0 3.6 Chloride 97 L 106 Carbon Dioxide 23 25 BUN 9 6 Creatinine 0.58 L 0.50 L Glucose 92 87 Calcium 8.9 8.0 L Liver Function 12/24/22 Range/Units 16:43 Total Bilirubin 0.3 (0.2-1.0) mg/dl AST 55 H (13-39) U/L ALT 17 (7-52) U/L Alkaline Phosphatase 85 (34-104) U/L Albumin 4.2 (3.4-5.0) gm/dl (1) Anemia Anemia type: unspecified type Qualified Code(s): D64.9 - Anemia, unspecified
[2022-12-25] MEDS ORDERED: IRON SUCROSE 200 MG in 0.9 % SODIUM CHLORIDE 100 ML IV ONE (16:00)
[2022-12-25] MEDS ORDERED: ACETAMINOPHEN 325 MG TAB PO STA (23:51)
[2022-12-25] MEDS ORDERED: cloNIDine HCL 0.1 MG TAB PO STA (23:57)
[2022-12-26] MEDS: GABAPENTIN 600 MG TAB PO SCH ×3 (00:05→21:03)
--- NOTE | 2022-12-26 01:37 | CT Scan Report ---
Exam(s): CT HEAD Without Contrast EXAM: CT Head Without Intravenous Contrast CLINICAL HISTORY: Headache. TECHNIQUE: Axial computed tomography images of the head/brain without intravenous contrast. CTDI is 37.62 mGy and DLP is 537.48 mGy-cm. Automated exposure control was utilized for the study. A dose lowering technique was utilized adhering to the principles of ALARA. COMPARISON: CT head 10/22/2013 FINDINGS: Brain: No intracranial hemorrhage, mass-effect or midline shift. No abnormal extra axial fluid. No evidence of acute infarct. Mild periventricular white matter hypodensities are most consistent with chronic microangiopathy. Ventricles: Unremarkable. No ventriculomegaly. Bones/joints: Unremarkable. No acute fracture. Soft tissues: Unremarkable. Sinuses: Unremarkable as visualized. No acute sinusitis. Mastoid air cells: Unremarkable as visualized. No mastoid effusion. IMPRESSION: No acute intracranial finding. Electronically signed by: Dinah Vidal MD 12/26/22 01:36 AM
[2022-12-26 07:36] LABS: Hematocrit (blood only) 24.8 % (37.0-47.0); Hemoglobin 7.7 g/dl (12.0-16.0)
[2022-12-26 07:57] LABS: BUN Creatinine Ratio 7.7 (10-20); Calcium 8.4 mg/dl (8.6-10.3); Creatinine Clr Calc Pharmacy 87.9 ml/min; Est GFR (African American) 121.2 ml/min; Est GFR (Non-African American) 104.6 ml/min; Magnesium 1.6 mg/dl (1.7-2.4); Potassium 3.4 mmol/L (3.5-5.1)
[2022-12-26] MEDS ORDERED: cloNIDine HCL 0.1 MG TAB PO PRN (08:16)
[2022-12-26] MEDS ORDERED: MAGNESIUM SULFATE / D5W 1 GM/100 ML BAG IV ONE (08:19)
[2022-12-26] MEDS ORDERED: POTASSIUM CHLORIDE CRTAB 20 MEQ TABCR PO ONE (08:19)
[2022-12-26] MEDS: busPIRone 7.5 MG TAB PO SCH ×2 (09:00→21:02)
[2022-12-26] MEDS: FOLIC ACID 1 MG TAB PO SCH (09:01)
[2022-12-26] MEDS: lisinopril 40 MG TAB PO SCH (09:03)
[2022-12-26] MEDS: METOPROLOL TARTRATE 50 MG TAB PO SCH ×2 (09:04→21:02)
[2022-12-26] MEDS: MAGNESIUM OXIDE 400 MG TAB PO SCH (09:04)
[2022-12-26] MEDS: MULTIVITAMIN TAB PO SCH (09:05)
[2022-12-26] MEDS: SERTRALINE HCL 100 MG TABLET PO SCH (09:05)
[2022-12-26] MEDS: THIAMINE HCL 100 MG TAB PO SCH (09:05)
[2022-12-26] MEDS: PANTOprazole 40 MG in SYRINGE 0 ML IV SCH ×2 (09:05→21:03)
--- NOTE | 2022-12-26 10:45 | Gastroenterology Progress Note ---
Date of Service December 26, 2022 Assessment & Plan (1) Anemia: Plan: Plan EGD and colonoscopy tomorrow. Procedure and risks discussed, she agrees Admission and Anticipated Discharge Date Admission Date: December 24, 2022 Subjective Doing well, ready for procedures tomorrow Physical Exam Physical Exam: She looks well Constitutional: WD/WN, vitals as above Results & Data Vital Signs (Past 12 Hours) Vital Signs Temp Pulse Pulse Resp BP BP Pulse Ox 12/26/22 09:37 12/26/22 07:50 36.9 C 82 16 120/73 95 12/26/22 06:01 73 12/26/22 04:10 36.8 C 76 20 174/89 H 96 12/25/22 23:52 80 195/96 H 94 12/25/22 23:41 36.6 C 95 H 20 205/107 H 98 12/25/22 22:50 O2 Del Method 12/26/22 09:37 Room Air 12/26/22 07:50 Room Air 12/26/22 06:01 12/26/22 04:10 Room Air 12/25/22 23:52 Room Air 12/25/22 23:41 Room Air 12/25/22 22:50 Room Air (1) Anemia Anemia type: unspecified type Qualified Code(s): D64.9 - Anemia, unspecified
--- NOTE | 2022-12-26 15:11 | Hospitalist Progress Note ---
Date of Service December 26, 2022 Assessment & Plan (1) Anemia: (2) GI bleeding: Plan: Rectal bleeding Acute on chronic blood loss anemia Iron deficiency anemia S/P 1 unit PRBCs Marrow suppression from significant alcohol abuse also likely contributing to anemia Continue PPI for now Monitor H&H and transfuse as needed Appreciate GI input Clear liquid diet today Received IV Venofer as well Hb 7.7 today Planned EGD, colonoscopy tomorrow Colon prp today NPO after midnight Hyponatremia Likely secondary to alcohol use Monitor sodium levels Chronic hypomagnesemia Hypokalemia Replete electrolytes as needed Chronic leg edema Likely secondary to venous stasis -ECHO: Left ventricle is normal in size. Normal left ventricle wall thickness. Left ventricle wall motion is normal. EF 60 to 65%. No significant valve disease. Diastolic function parameters are normal. Monitor (3) Acute electrocardiogram changes: Plan: EKG shows non specific ST changes, may be due to anemia Denies chest pain, dyspnea ECHO showed no wall motion abnormality (4) Alcohol abuse: Plan: Patient reports drinking 6-9 16 oz beers/day Continue protocol with gabapentin and as needed Ativan Continue Triamine, folic acid Monitor for withdrawal (5) Essential hypertension: Plan: Continue metoprolol and lisinopril (6) Seizure: Plan: Patient reports history of seizure however not on any AED Monitor (7) Bipolar affect, depressed: Plan: Continue buspirone and sertraline DVT Px SCDs Re: GI bleeding Admission and Anticipated Discharge Date Admission Date: December 24, 2022 Subjective Patient is seen and examined at bedside No recurrence of rectal bleeding while hospitalized Plan for EGD, colonoscopy tomorrow No new complaints Denies any chest pain, dyspnea, dizziness, nausea, abdominal pain Review of Systems Review of Systems: All systems reviewed & are unremarkable except as noted in Subjective Physical Exam Physical Exam: Physical Exam: Vitals signs as noted above General Appearance:Moderately built and nourished, no apparent distress Head: normocephalic, Atraumatic Eyes: normal inspection, EOMI, Pale Neck: supple, Trachea midline Respiratory/Chest: Normal breath sounds, CTA, No accessory muscle use Cardiovascular: S1, S2, No murmur Abdomen/GI:Soft, Non tender, Bowel sounds present Extremities/Musculoskeletal:normal inspection, 1+ Pedal edema Neurologic/Psych:AAOX3, grossly no focal neurological deficits Skin: normal color, warm Results & Data Results & Data Vital Signs (Past 12 Hours) Vital Signs Temp Pulse Pulse Resp BP BP Pulse Ox 12/26/22 11:58 37.0 C 89 18 122/54 L 98 12/26/22 09:37 12/26/22 07:50 36.9 C 82 16 120/73 95 12/26/22 06:01 73 12/26/22 04:10 36.8 C 76 20 174/89 H 96 O2 Del Method 12/26/22 11:58 Room Air 12/26/22 09:37 Room Air 12/26/22 07:50 Room Air 12/26/22 06:01 12/26/22 04:10 Room Air Laboratory Results Laboratory Results WBC 4.09 K/ul (4.8-10.8) L 12/25/22 05:51 RBC 2.97 M/uL (4.20-5.40) L 12/25/22 05:51 Hgb 7.7 g/dl (12.0-16.0) L 12/26/22 06:39 Hct 24.8 % (37.0-47.0) L 12/26/22 06:39 MCV 77.4 fL (80.0-100.0) L D 12/25/22 05:51 MCH 24.6 pg (25.0-34.0) L 12/25/22 05:51 MCHC 31.7 g/dL (32.0-36.0) L 12/25/22 05:51 RDW Std Deviation 52.4 fL (36.4-46.3) H 12/25/22 05:51 RDW Coeff of Kendall 18.9 % (11.5-14.5) H 12/25/22 05:51 Plt Count 228 K/uL (130-400) 12/25/22 05:51 MPV 9.1 fL (9.4-12.4) L 12/25/22 05:51 Immature Gran % (Auto) 0.3 % 12/24/22 16:43 Neut % (Auto) 60.0 % 12/24/22 16:43 Lymph % (Auto) 28.3 % 12/24/22 16:43 [place] % (Auto) 10.8 % 12/24/22 16:43 Eos % (Auto) 0.3 % 12/24/22 16:43 Baso % (Auto) 0.3 % 12/24/22 16:43 Neut # (Auto) 4.27 K/uL (1.40-6.50) 12/24/22 16:43 Lymph # (Auto) 2.01 K/uL (1.2-3.4) 12/24/22 16:43 [place] # (Auto) 0.77 K/uL (0.11-0.59) H 12/24/22 16:43 Eos # (Auto) 0.02 K/uL (0-0.50) 12/24/22 16:43 Baso # (Auto) 0.02 K/uL (0-0.2) 12/24/22 16:43 Immature Gran # (Auto) 0.02 K/uL (0.01-0.20) 12/24/22 16:43 Polychromasia 1+ 12/24/22 16:43 Hypochromasia Present 12/24/22 16:43 Microcytosis Present 12/24/22 16:43 PT 11.0 Seconds (9.0-12.0) 12/24/22 16:43 INR 1.0 (0.9-1.1) 12/24/22 16:43 APTT 24.3 Seconds (21.0-31.0) 12/24/22 16:43 PTT Ratio 0.9 12/24/22 16:43 Sodium 138 mmol/L (136-145) 12/26/22 06:39 Potassium 3.4 mmol/L (3.5-5.1) L 12/26/22 06:39 Chloride 103 mmol/L (98-107) 12/26/22 06:39 Carbon Dioxide 27 mmol/L (21-32) 12/26/22 06:39 Anion Gap 8 (3-11) 12/26/22 06:39 BUN 4 mg/dl (6-23) L 12/26/22 06:39 Creatinine 0.52 mg/dl (0.6-1.2) L 12/26/22 06:39 Est Cr Clr Drug Dosing 87.9 ml/min 12/26/22 06:39 Est GFR ( Amer) 121.2 ml/min 12/26/22 06:39 Est GFR (Non-Af Amer) 104.6 ml/min 12/26/22 06:39 BUN/Creatinine Ratio 7.7 (10-20) L 12/26/22 06:39 Glucose 92 mg/dl (70-99(Fasting)) 12/26/22 06:39 Calcium 8.4 mg/dl (8.6-10.3) L 12/26/22 06:39 Magnesium 1.6 mg/dl (1.7-2.4) L 12/26/22 06:39 Iron 21 mcg/dl (35-150) L 12/25/22 05:51 Unsaturated IBC 312 mcg/dl (155-355) 12/25/22 05:51 Transferrin 266 mg/dl (200-360) 12/25/22 05:51 Ferritin 15.0 ng/ml (8-388) 12/25/22 05:51 Total Bilirubin 0.3 mg/dl (0.2-1.0) 12/24/22 16:43 AST 55 U/L (13-39) H 12/24/22 16:43 ALT 17 U/L (7-52) 12/24/22 16:43 Alkaline Phosphatase 85 U/L (34-104) 12/24/22 16:43 Total Protein 7.0 gm/dl (6.0-8.3) 12/24/22 16:43 Albumin 4.2 gm/dl (3.4-5.0) 12/24/22 16:43 Globulin 2.8 gm/dl (2.5-4.0) 12/24/22 16:43 Albumin/Globulin Ratio 1.5 (0.9-2) 12/24/22 16:43 Vitamin B12 368 pg/ml (180-914) 12/25/22 05:51 Folate > 22.30 ng/ml (>5.38) 12/25/22 05:51 SARS-CoV-2, RNA, NAAT NEGATIVE (NEGATIVE) 12/24/22 17:12 Blood Type O Positive 12/24/22 16:43 Blood Type Recheck O Positive 12/24/22 17:48 Antibody Screen NEGATIVE 12/24/22 16:43 Crossmatch See Detail 12/24/22 16:[address] 12/25/22 23:52 Exam(s): CT HEAD Without Contrast EXAM: CT Head Without Intravenous Contrast CLINICAL HISTORY: Headache. TECHNIQUE: Axial computed tomography images of the head/brain without intravenous contrast. CTDI is 37.62 mGy and DLP is 537.48 mGy-cm. Automated exposure control was utilized for the study. A dose lowering technique was utilized adhering to the principles of ALARA. COMPARISON: CT head 10/22/2013 FINDINGS: Brain: No intracranial hemorrhage, mass-effect or midline shift. No abnormal extra axial fluid. No evidence of acute infarct. Mild periventricular white matter hypodensities are most consistent with chronic microangiopathy. Ventricles: Unremarkable. No ventriculomegaly. Bones/joints: Unremarkable. No acute fracture. Soft tissues: Unremarkable. Sinuses: Unremarkable as visualized. No acute sinusitis. Mastoid air cells: Unremarkable as visualized. No mastoid effusion. IMPRESSION: No acute intracranial finding. Electronically signed by: Dinah Vidal MD 12/26/22 01:36 AM (1) Anemia Anemia type: unspecified type Qualified Code(s): D64.9 - Anemia, unspecified
[2022-12-26] MEDS: POLYETHYLENE (MIRALAX) 17 GM PACK PO SCH (17:43)
[2022-12-27] MEDS: POLYETHYLENE (MIRALAX) 17 GM PACK PO SCH (05:48)
[2022-12-27 07:02] LABS: Hematocrit (blood only) 23.7 % (37.0-47.0); Hemoglobin 7.4 g/dl (12.0-16.0); Mean Corpuscular Hemoglobin 23.8 pg (25.0-34.0); Mean Corpuscular Hgb Conc 31.2 g/dL (32.0-36.0); Mean Corpuscular Volume 76.2 fL (80.0-100.0); Mean Platelet Volume 9.9 fL (9.4-12.4); Platelet Count 244 K/uL (130-400); RDW Coefficient of Variation 19.9 % (11.5-14.5); Red Blood Count 3.11 M/uL (4.20-5.40); White Blood Count 4.67 K/ul (4.8-10.8)
[2022-12-27 07:09] LABS: Calcium 8.3 mg/dl (8.6-10.3); Creatinine Clr Calc Pharmacy 98.8 ml/min; Est GFR (African American) 122.8 ml/min; Est GFR (Non-African American) 105.9 ml/min; Magnesium 1.5 mg/dl (1.7-2.4); Potassium 3.5 mmol/L (3.5-5.1)
[2022-12-27] MEDS ORDERED: LIDOCAINE 2% 2 ML VIAL/AMP(20MG/ML) INFIL ONE (08:39)
[2022-12-27] MEDS ORDERED: PROPOFOL IV EMULSION 10 MG/ML 20 ML VIAL IV ONE (08:39)
--- NOTE | 2022-12-27 08:56 | Anesthesiology Consultation ---
Date of Service December 27, 2022 History Surgery Operation Date: 12/27/22 17:15 Proposed Procedures p Colonoscopy EGD Dr Farmer - Ava Farmer, Height/Weight Height: 5 ft 1 in Weight: 57.4 kg Allergies Allergy/AdvReac Type Severity Reaction Status Date / Time No Known Allergies Allergy Verified 12/27/22 08:36 Medications Home Medications Medication Instructions Recorded Confirmed Last Taken buspirone 7.5 mg tablet 15 mg PO BID 12/24/22 12/24/22 Unknown lisinopril 40 mg tablet 40 mg PO DAILY 12/24/22 12/24/22 Unknown magnesium oxide 400 mg (241.3 mg 800 mg PO DAILY 12/24/22 12/24/22 Unknown magnesium) tablet metoprolol tartrate 25 mg tablet 25 mg PO BID 12/24/22 12/24/22 Unknown multivitamin 1 tab PO DAILY 12/24/22 12/24/22 Unknown sertraline 100 mg tablet 100 mg PO DAILY 12/24/22 12/24/22 Unknown Active Medications Generic Name Dose Route Start Last Admin Trade Name Cinthya PRN Reason Stop Dose Admin Buspirone HCl 15 mg 12/24/22 21:00 12/26/22 21:02 Buspirone 7.5 Mg Tab PO 01/23/23 20:59 15 mg BID TAJ Administration Folic Acid 1 mg 12/25/22 09:00 12/26/22 09:01 Folic Acid 1 Mg Tab PO 01/24/23 08:59 1 mg QAM TAJ Administration Gabapentin 600 mg 12/26/22 21:00 12/26/22 21:03 Gabapentin 600 Mg Tab PO 12/27/22 09:01 600 mg Q12H TAJ Administration Pantoprazole Sodium 40 mg/ 10 mls @ 5 mls/min 12/24/22 21:00 12/26/22 21:03 Syringe IV 01/23/23 20:59 5 mls/min BID TAJ Administration Lisinopril 40 mg 12/25/22 09:00 12/26/22 09:03 Lisinopril 40 Mg Tab PO 01/24/23 08:59 40 mg DAILY TAJ Administration Magnesium Oxide 800 mg 12/25/22 09:00 12/26/22 09:04 Magnesium Oxide 400 Mg Tab PO 01/24/23 08:59 800 mg DAILY TAJ Administration Metoprolol Tartrate 50 mg 12/26/22 09:00 12/26/22 21:02 Metoprolol Tartrate 50 Mg Tab PO 01/25/23 08:59 50 mg BID TAJ Administration Multivitamins 1 tab 12/25/22 09:00 12/26/22 09:05 Multivitamin Tab PO 01/24/23 08:59 1 tab DAILY TAJ Administration Sertraline HCl 100 mg 12/25/22 09:00 12/26/22 09:05 Sertraline Hcl 100 Mg Tablet PO 01/24/23 08:59 100 mg DAILY TAJ Administration Thiamine HCl 100 mg 12/25/22 09:00 12/26/22 09:05 Thiamine Hcl 100 Mg Tab PO 01/24/23 08:59 100 mg QAM TAJ Administration NPO Date Last Intake of Fluids: 12/27/22 Time Last Intake of Fluids: 06:00 Date Last Intake of Solids: 12/24/22 Time Last Intake of Solids: 18:00 Past Medical History Medical History Alcohol abuse Anxiety Bipolar affect, depressed Depression Essential hypertension Feeling suicidal Fracture of lumbar spine History of peptic ulcer Seizure Past Surgical History Surgical History S/P D&C (status post dilation and curettage) Social History Smoking Status: Never smoker Do You Dip or Chew Tobacco: No Hx Alcohol Use: Yes Alcohol type: beer alcohol intake frequency: 3 or more drinks per day Alcohol Intake Frequency Comment: 6-9 punders a day an dlast drink was 4pm 12/24/22 Hx Substance Use: No substance use type: does not use Physical Exam Vital Signs Last Vital Signs Temp 36.3 C L 12/27/22 08:32 Pulse 73 12/27/22 08:45 Resp 18 12/27/22 08:32 BP 184/96 H 12/27/22 08:32 Pulse Ox 100 12/27/22 08:32 O2 Del Method Room Air 12/27/22 08:32 Testing Laboratory Results 12/27/22 05:40 12/27/22 05:40 PT 11.0 Seconds (9.0-12.0) 12/24/22 16:43 INR 1.0 (0.9-1.1) 12/24/22 16:43 APTT 24.3 Seconds (21.0-31.0) 12/24/22 16:43 Blood Type O Positive 12/24/22 16:43 Antibody Screen NEGATIVE 12/24/22 16:43 Echocardiogram echo EF 60% ; normal valves Data & Results Home Medications Medication Instructions Recorded Confirmed Type buspirone 7.5 mg tablet 15 mg PO BID 12/24/22 12/24/22 History lisinopril 40 mg tablet 40 mg PO DAILY 12/24/22 12/24/22 History magnesium oxide 400 mg (241.3 mg 800 mg PO DAILY 12/24/22 12/24/22 History magnesium) tablet metoprolol tartrate 25 mg tablet 25 mg PO BID 12/24/22 12/24/22 History multivitamin 1 tab PO DAILY 12/24/22 12/24/22 History sertraline 100 mg tablet 100 mg PO DAILY 12/24/22 12/24/22 History ECOG/Weight/Vitals Weight: 57.4 kg Vitals Signs: Vital Signs Temp Pulse Pulse Resp BP BP Pulse Ox 12/27/22 08:45 73 12/27/22 08:32 36.3 C L 67 18 184/96 H 184/96 H 100 12/27/22 07:44 36.5 C 68 16 164/87 H 100 12/27/22 07:21 12/27/22 03:10 37.2 C 72 20 152/84 H 97 12/27/22 03:02 67 12/26/22 23:34 36.9 C 71 18 159/87 H 98 12/26/22 21:59 O2 Del Method 12/27/22 08:45 12/27/22 08:32 Room Air 12/27/22 07:44 Room Air 12/27/22 07:21 Room Air 12/27/22 03:10 Room Air 12/27/22 03:02 12/26/22 23:34 Room Air 12/26/22 21:59 Room Air Laboratory Values 12/27/22 12/27/22 12/26/22 Range/Units 05:40 05:40 06:39 WBC 4.67 L (4.8-10.8) K/ul RBC 3.11 L (4.20-5.40) M/uL Hgb 7.4 L (12.0-16.0) g/dl Hct 23.7 L (37.0-47.0) % MCV 76.2 L (80.0-100.0) fL MCH 23.8 L (25.0-34.0) pg MCHC 31.2 L (32.0-36.0) g/dL RDW Std Deviation 54.0 H (36.4-46.3) fL RDW Coeff of Kendall 19.9 H (11.5-14.5) % Plt Count 244 (130-400) K/uL MPV 9.9 (9.4-12.4) fL Immature Gran % (Auto) % Neut % (Auto) % Lymph % (Auto) % [place] % (Auto) % Eos % (Auto) % Baso % (Auto) % Neut # (Auto) (1.40-6.50) K/uL Lymph # (Auto) (1.2-3.4) K/uL [place] # (Auto) (0.11-0.59) K/uL Eos # (Auto) (0-0.50) K/uL Baso # (Auto) (0-0.2) K/uL Immature Gran # (Auto) (0.01-0.20) K/uL Polychromasia Hypochromasia Microcytosis Peripher Smr Path Cons PT (9.0-12.0) Seconds INR (0.9-1.1) APTT (21.0-31.0) Seconds PTT Ratio Sodium 137 138 (136-145) mmol/L Potassium 3.5 3.4 L (3.5-5.1) mmol/L Chloride 104 103 (98-107) mmol/L Carbon Dioxide 27 27 (21-32) mmol/L Anion Gap 6 8 (3-11) BUN 4 L 4 L (6-23) mg/dl Creatinine 0.50 L 0.52 L (0.6-1.2) mg/dl Est Cr Clr Drug Dosing 98.8 87.9 ml/min Est GFR ( Amer) 122.8 121.2 ml/min Est GFR (Non-Af Amer) 105.9 104.6 ml/min BUN/Creatinine Ratio 8.0 L 7.7 L (10-20) Glucose 87 92 (70-99(Fasting)) mg/dl Calcium 8.3 L 8.4 L (8.6-10.3) mg/dl Magnesium 1.5 L 1.6 L (1.7-2.4) mg/dl Iron (35-150) mcg/dl Unsaturated IBC (155-355) mcg/dl Transferrin (200-360) mg/dl Ferritin (8-388) ng/ml Total Bilirubin (0.2-1.0) mg/dl AST (13-39) U/L ALT (7-52) U/L Alkaline Phosphatase (34-104) U/L Total Protein (6.0-8.3) gm/dl Albumin (3.4-5.0) gm/dl Globulin (2.5-4.0) gm/dl Albumin/Globulin Ratio (0.9-2) Vitamin B12 (180-914) pg/ml Folate (>5.38) ng/ml SARS-CoV-2, RNA, NAAT (NEGATIVE) Blood Type Blood Type Recheck Antibody Screen Crossmatch 12/26/22 12/25/22 12/25/22 Range/Units 06:39 05:51 05:51 WBC (4.8-10.8) K/ul RBC (4.20-5.40) M/uL Hgb 7.7 L (12.0-16.0) g/dl Hct 24.8 L (37.0-47.0) % MCV (80.0-100.0) fL MCH (25.0-34.0) pg MCHC (32.0-36.0) g/dL RDW Std Deviation (36.4-46.3) fL RDW Coeff of Kend[place] (11.5-14.5) % Plt Count (130-400) K/uL MPV (9.4-12.4) fL Immature Gran % (Auto) % Neut % (Auto) % Lymph % (Auto) % [place] % (Auto) % Eos % (Auto) % Baso % (Auto) % Neut # (Auto) (1.40-6.50) K/uL Lymph # (Auto) (1.2-3.4) K/uL [place] # (Auto) (0.11-0.59) K/uL Eos # (Auto) (0-0.50) K/uL Baso # (Auto) (0-0.2) K/uL Immature Gran # (Auto) (0.01-0.20) K/uL Polychromasia Hypochromasia Microcytosis Peripher Smr Path Cons PT (9.0-12.0) Seconds INR (0.9-1.1) APTT (21.0-31.0) Seconds PTT Ratio Sodium (136-145) mmol/L Potassium (3.5-5.1) mmol/L Chloride (98-107) mmol/L Carbon Dioxide (21-32) mmol/L Anion Gap (3-11) BUN (6-23) mg/dl Creatinine (0.6-1.2) mg/dl Est Cr Clr Drug Dosing ml/min Est GFR ( Amer) ml/min Est GFR (Non-Af Amer) ml/min BUN/Creatinine Ratio (10-20) Glucose (70-99(Fasting)) mg/dl Calcium (8.6-10.3) mg/dl Magnesium (1.7-2.4) mg/dl Iron (35-150) mcg/dl Unsaturated IBC 312 (155-355) mcg/dl Transferrin (200-360) mg/dl Ferritin (8-388) ng/ml Total Bilirubin (0.2-1.0) mg/dl AST (13-39) U/L ALT (7-52) U/L Alkaline Phosphatase (34-104) U/L Total Protein (6.0-8.3) gm/dl Albumin (3.4-5.0) gm/dl Globulin (2.5-4.0) gm/dl Albumin/Globulin Ratio (0.9-2) Vitamin B12 368 (180-914) pg/ml Folate > 22.30 (>5.38) ng/ml SARS-CoV-2, RNA, NAAT (NEGATIVE) Blood Type Blood Type Recheck Antibody Screen Crossmatch 12/25/22 12/25/22 12/24/22 Range/Units 05:51 05:51 22:54 WBC 4.09 L (4.8-10.8) K/ul RBC 2.97 L (4.20-5.40) M/uL Hgb 7.3 L 7.4 L (12.0-16.0) g/dl Hct 23.0 L 23.8 L (37.0-47.0) % MCV 77.4 L D (80.0-100.0) fL MCH 24.6 L (25.0-34.0) pg MCHC 31.7 L (32.0-36.0) g/dL RDW Std Deviation 52.4 H (36.4-46.3) fL RDW Coeff of [place] 18.9 H (11.5-14.5) % Plt Count 228 (130-400) K/uL MPV 9.1 L (9.4-12.4) fL Immature Gran % (Auto) % Neut % (Auto) % Lymph % (Auto) % [place] % (Auto) % Eos % (Auto) % Baso % (Auto) % Neut # (Auto) (1.40-6.50) K/uL Lymph # (Auto) (1.2-3.4) K/uL [place] # (Auto) (0.11-0.59) K/uL Eos # (Auto) (0-0.50) K/uL Baso # (Auto) (0-0.2) K/uL Immature Gran # (Auto) (0.01-0.20) K/uL Polychromasia Hypochromasia Microcytosis Peripher Smr Path Cons PT (9.0-12.0) Seconds INR (0.9-1.1) APTT (21.0-31.0) Seconds PTT Ratio Sodium 138 (136-145) mmol/L Potassium 3.6 (3.5-5.1) mmol/L Chloride 106 (98-107) mmol/L Carbon Dioxide 25 (21-32) mmol/L Anion Gap 7 (3-11) BUN 6 (6-23) mg/dl Creatinine 0.50 L (0.6-1.2) mg/dl Est Cr Clr Drug Dosing 91.4 ml/min Est GFR ( Amer) 122.8 ml/min Est GFR (Non-Af Amer) 105.9 ml/min BUN/Creatinine Ratio 12.0 (10-20) Glucose 87 (70-99(Fasting)) mg/dl Calcium 8.0 L (8.6-10.3) mg/dl Magnesium 1.5 L (1.7-2.4) mg/dl Iron 21 L (35-150) mcg/dl Unsaturated IBC (155-355) mcg/dl Transferrin 266 (200-360) mg/dl Ferritin 15.0 (8-388) ng/ml Total Bilirubin (0.2-1.0) mg/dl AST (13-39) U/L ALT (7-52) U/L Alkaline Phosphatase (34-104) U/L Total Protein (6.0-8.3) gm/dl Albumin (3.4-5.0) gm/dl Globulin (2.5-4.0) gm/dl Albumin/Globulin Ratio (0.9-2) Vitamin B12 (180-914) pg/ml Folate (>5.38) ng/ml SARS-CoV-2, RNA, NAAT (NEGATIVE) Blood Type Blood Type Recheck Antibody Screen Crossmatch 12/24/22 12/24/22 12/24/22 Range/Units 17:48 17:12 16:43 WBC (4.8-10.8) K/ul RBC (4.20-5.40) M/uL Hgb (12.0-16.0) g/dl Hct (37.0-47.0) % MCV (80.0-100.0) fL MCH (25.0-34.0) pg MCHC (32.0-36.0) g/dL RDW Std Deviation (36.4-46.3) fL RDW Coeff of [place] (11.5-14.5) % Plt Count (130-400) K/uL MPV (9.4-12.4) fL Immature Gran % (Auto) % Neut % (Auto) % Lymph % (Auto) % [place] % (Auto) % Eos % (Auto) % Baso % (Auto) % Neut # (Auto) (1.40-6.50) K/uL Lymph # (Auto) (1.2-3.4) K/uL [place] # (Auto) (0.11-0.59) K/uL Eos # (Auto) (0-0.50) K/uL Baso # (Auto) (0-0.2) K/uL Immature Gran # (Auto) (0.01-0.20) K/uL Polychromasia Hypochromasia Microcytosis Peripher Smr Path Cons PT (9.0-12.0) Seconds INR (0.9-1.1) APTT (21.0-31.0) Seconds PTT Ratio Sodium (136-145) mmol/L Potassium (3.5-5.1) mmol/L Chloride (98-107) mmol/L Carbon Dioxide (21-32) mmol/L Anion Gap (3-11) BUN (6-23) mg/dl Creatinine (0.6-1.2) mg/dl Est Cr Clr Drug Dosing ml/min Est GFR ( Amer) ml/min Est GFR (Non-Af Amer) ml/min BUN/Creatinine Ratio (10-20) Glucose (70-99(Fasting)) mg/dl Calcium (8.6-10.3) mg/dl Magnesium (1.7-2.4) mg/dl Iron (35-150) mcg/dl Unsaturated IBC (155-355) mcg/dl Transferrin (200-360) mg/dl Ferritin (8-388) ng/ml Total Bilirubin (0.2-1.0) mg/dl AST (13-39) U/L ALT (7-52) U/L Alkaline Phosphatase (34-104) U/L Total Protein (6.0-8.3) gm/dl Albumin (3.4-5.0) gm/dl Globulin (2.5-4.0) gm/dl Albumin/Globulin Ratio (0.9-2) Vitamin B12 (180-914) pg/ml Folate (>5.38) ng/ml SARS-CoV-2, RNA, NAAT NEGATIVE (NEGATIVE) Blood Type Blood Type Recheck O Positive Antibody Screen Crossmatch 12/24/22 12/24/22 12/24/22 Range/Units 16:43 16:43 16:43 WBC (4.8-10.8) K/ul RBC (4.20-5.40) M/uL Hgb (12.0-16.0) g/dl Hct (37.0-47.0) % MCV (80.0-100.0) fL MCH (25.0-34.0) pg MCHC (32.0-36.0) g/dL RDW Std Deviation (36.4-46.3) fL RDW Coeff of Kendall (11.5-14.5) % Plt Count (130-400) K/uL MPV (9.4-12.4) fL Immature Gran % (Auto) % Neut % (Auto) % Lymph % (Auto) % [place] % (Auto) % Eos % (Auto) % Baso % (Auto) % Neut # (Auto) (1.40-6.50) K/uL Lymph # (Auto) (1.2-3.4) K/uL [place] # (Auto) (0.11-0.59) K/uL Eos # (Auto) (0-0.50) K/uL Baso # (Auto) (0-0.2) K/uL Immature Gran # (Auto) (0.01-0.20) K/uL Polychromasia Hypochromasia Microcytosis Peripher Smr Path Cons PT 11.0 (9.0-12.0) Seconds INR 1.0 (0.9-1.1) APTT 24.3 (21.0-31.0) Seconds PTT Ratio 0.9 Sodium 132 L (136-145) mmol/L Potassium 4.0 (3.5-5.1) mmol/L Chloride 97 L (98-107) mmol/L Carbon Dioxide 23 (21-32) mmol/L Anion Gap 12 H (3-11) BUN 9 (6-23) mg/dl Creatinine 0.58 L (0.6-1.2) mg/dl Est Cr Clr Drug Dosing 82.6 ml/min Est GFR ( Amer) 116.9 ml/min Est GFR (Non-Af Amer) 100.9 ml/min BUN/Creatinine Ratio 15.5 (10-20) Glucose 92 (70-99(Fasting)) mg/dl Calcium 8.9 (8.6-10.3) mg/dl Magnesium (1.7-2.4) mg/dl Iron (35-150) mcg/dl Unsaturated IBC (155-355) mcg/dl Transferrin (200-360) mg/dl Ferritin (8-388) ng/ml Total Bilirubin 0.3 (0.2-1.0) mg/dl AST 55 H (13-39) U/L ALT 17 (7-52) U/L Alkaline Phosphatase 85 (34-104) U/L Total Protein 7.0 (6.0-8.3) gm/dl Albumin 4.2 (3.4-5.0) gm/dl Globulin 2.8 (2.5-4.0) gm/dl Albumin/Globulin Ratio 1.5 (0.9-2) Vitamin B12 (180-914) pg/ml Folate (>5.38) ng/ml SARS-CoV-2, RNA, NAAT (NEGATIVE) Blood Type O Positive Blood Type Recheck Antibody Screen NEGATIVE Crossmatch See Detail 12/24/22 Range/Units 16:43 WBC 7.11 (4.8-10.8) K/ul RBC 2.83 L (4.20-5.40) M/uL Hgb 6.2 L* (12.0-16.0) g/dl Hct 20.0 L* (37.0-47.0) % MCV 70.7 L (80.0-100.0) fL MCH 21.9 L (25.0-34.0) pg MCHC 31.0 L (32.0-36.0) g/dL RDW Std Deviation 42.6 (36.4-46.3) fL RDW Coeff of Kendall 16.8 H (11.5-14.5) % Plt Count 302 (130-400) K/uL MPV 9.3 L (9.4-12.4) fL Immature Gran % (Auto) 0.3 % Neut % (Auto) 60.0 % Lymph % (Auto) 28.3 % Fajardo % (Auto) 10.8 % Eos % (Auto) 0.3 % Baso % (Auto) 0.3 % Neut # (Auto) 4.27 (1.40-6.50) K/uL Lymph # (Auto) 2.01 (1.2-3.4) K/uL Fajardo # (Auto) 0.77 H (0.11-0.59) K/uL Eos # (Auto) 0.02 (0-0.50) K/uL Baso # (Auto) 0.02 (0-0.2) K/uL Immature Gran # (Auto) 0.02 (0.01-0.20) K/uL Polychromasia 1+ Hypochromasia Present Microcytosis Present Peripher Smr Path Cons PT (9.0-12.0) Seconds INR (0.9-1.1) APTT (21.0-31.0) Seconds PTT Ratio Sodium (136-145) mmol/L Potassium (3.5-5.1) mmol/L Chloride (98-107) mmol/L Carbon Dioxide (21-32) mmol/L Anion Gap (3-11) BUN (6-23) mg/dl Creatinine (0.6-1.2) mg/dl Est Cr Clr Drug Dosing ml/min Est GFR ( Amer) ml/min Est GFR (Non-Af Amer) ml/min BUN/Creatinine Ratio (10-20) Glucose (70-99(Fasting)) mg/dl Calcium (8.6-10.3) mg/dl Magnesium (1.7-2.4) mg/dl Iron (35-150) mcg/dl Unsaturated IBC (155-355) mcg/dl Transferrin (200-360) mg/dl Ferritin (8-388) ng/ml Total Bilirubin (0.2-1.0) mg/dl AST (13-39) U/L ALT (7-52) U/L Alkaline Phosphatase (34-104) U/L Total Protein (6.0-8.3) gm/dl Albumin (3.4-5.0) gm/dl Globulin (2.5-4.0) gm/dl Albumin/Globulin Ratio (0.9-2) Vitamin B12 (180-914) pg/ml Folate (>5.38) ng/ml SARS-CoV-2, RNA, NAAT (NEGATIVE) Blood Type Blood Type Recheck Antibody Screen Crossmatch
--- NOTE | 2022-12-27 08:58 | History & Physical Report ---
Date of Service December 27, 2022 Assessment & Plan (1) GI bleeding: Plan: EGD and colonoscopy today (2) Anemia: Admission and Anticipated Discharge Date Admission Date: December 24, 2022 History of Present Illness Chief Complaint: rectal lbeeding anemia Primary Care Provider: Shelli Ritter MD rectal bleeding anemia Allergies Allergy/AdvReac Type Severity Reaction Status Date / Time No Known Allergies Allergy Verified 12/27/22 08:36 Home Medications Medication Instructions Recorded Confirmed Type buspirone 7.5 mg tablet 15 mg PO BID 12/24/22 12/24/22 History lisinopril 40 mg tablet 40 mg PO DAILY 12/24/22 12/24/22 History magnesium oxide 400 mg (241.3 mg 800 mg PO DAILY 12/24/22 12/24/22 History magnesium) tablet metoprolol tartrate 25 mg tablet 25 mg PO BID 12/24/22 12/24/22 History multivitamin 1 tab PO DAILY 12/24/22 12/24/22 History sertraline 100 mg tablet 100 mg PO DAILY 12/24/22 12/24/22 History Past Med/Surg History Medical History Alcohol abuse Anxiety Bipolar affect, depressed Depression Essential hypertension Feeling suicidal Fracture of lumbar spine History of peptic ulcer Seizure Surgical History S/P D&C (status post dilation and curettage) Social History Smoking Status: Never smoker Second Hand Exposure: No; Do You Dip or Chew Tobacco: No; Tobacco Cessation Education Requested by Patient: No Hx Alcohol Use: Yes Alcohol type: beer Alcohol Intake Frequency: 4 or More x per/Week Alcohol Intake Frequency Comment: 6-9 16oz beer/day Hx Substance Use: No Preferred Language: Lithuanian Communication Ability: Effective Publicity Agent Required: No Beliefs That Will Affect Care: None Current Living Situation: Spouse Feels Safe at Home: Yes Safety Concerns: Feels Safe At This Time Assistive Devices: Glasses Results & Data Vital Signs (Past 12 Hours) Vital Signs Temp Pulse Pulse Resp BP BP Pulse Ox 12/27/22 08:45 73 12/27/22 08:32 36.3 C L 67 18 184/96 H 184/96 H 100 12/27/22 07:44 36.5 C 68 16 164/87 H 100 12/27/22 07:21 12/27/22 03:10 37.2 C 72 20 152/84 H 97 12/27/22 03:02 67 12/26/22 23:34 36.9 C 71 18 159/87 H 98 12/26/22 21:59 O2 Del Method 12/27/22 08:45 12/27/22 08:32 Room Air 12/27/22 07:44 Room Air 12/27/22 07:21 Room Air 12/27/22 03:10 Room Air 12/27/22 03:02 12/26/22 23:34 Room Air 12/26/22 21:59 Room Air Code Status & VTE Plan VTE Prophylaxis Plan VTE Prophylaxis will be ordered: Yes (2) Anemia Anemia type: unspecified type Qualified Code(s): D64.9 - Anemia, unspecified
[2022-12-27] MEDS ORDERED: ENDOSCOPIC MARKER 5 ML SYR TOP ONE ×2 (09:44→09:45)
--- NOTE | 2022-12-27 09:54 | GI REPORT ---
Patient Name: Amanda Ferguson Procedure Date: 12/27/2022 9:00 AM Date of : 1965 Admit Type: Inpatient Age: 57 Gender: Female Attending MD: Ava Farmer DO, Procedure: Upper GI endoscopy Providers: Ava Farmer DO Referring MD: Thuan Cade Md Indications: Iron deficiency anemia, Recent gastrointestinal bleeding Medicines: Propofol per Anesthesia Complications: No immediate complications. Estimated blood loss: Minimal. Estimated Blood Loss: Estimated blood loss was minimal. Procedure: Pre-Anesthesia Assessment: - Prior to the procedure, a History and Physical was performed, and patient medications, allergies and sensitivities were reviewed. The patient's tolerance of previous anesthesia was reviewed. - The risks and benefits of the procedure and the sedation options and risks were discussed with the patient. All questions were answered and informed consent was obtained. - Patient identification and proposed procedure were verified prior to the procedure by the physician and the nurse. The procedure was verified in the pre-procedure area in the procedure room. - Mental Status Examination: alert and oriented. Airway Examination: normal oropharyngeal airway and neck mobility. Respiratory Examination: clear to auscultation. CV Examination: normal. Abdominal Examination: bowel sounds present, abdomen soft and non-tender, no masses or organomegaly noted. - ASA Grade Assessment: II - A patient with mild systemic disease. After obtaining informed consent, the endoscope was passed under direct vision. Throughout the procedure, the patient's blood pressure, pulse, and oxygen saturations were monitored continuously. The Endoscope was introduced through the mouth, and advanced to the third part of duodenum. The upper GI endoscopy was accomplished without difficulty. The patient tolerated the procedure well. Findings: The esophagus was normal. The stomach was normal. Scalloped mucosa was found in the second portion of the duodenum. Biopsies for histology were taken with a cold forceps for evaluation of celiac disease. Verification of patient identification for the specimen was done by the physician and nurse using the patient's name and date. Estimated blood loss was minimal. Impression: - Normal esophagus. - Normal stomach. - Scalloped mucosa was found in the duodenum, suspicious for celiac disease. Biopsied. Recommendation: - Await pathology results. - Perform a colonoscopy today. Ced Ferrari DO 12/27/2022 9:53:31 AM This report has been signed electronically. Note Initiated On: 12/27/2022 9:00 AM Number of Addenda: 0 I attest to the content of the Intraoperative Record and orders documented therein, exceptions below {[id number]}
--- NOTE | 2022-12-27 09:58 | GI REPORT ---
Patient Name: Amanda Ferguson Procedure Date: 12/27/2022 8:59 AM Date of : 1965 Admit Type: Inpatient Age: 57 Gender: Female Attending MD: Ava Farmer DO, Procedure: Colonoscopy Providers: Ava Farmer DO Referring MD: Thuan Cade Md Indications: Rectal bleeding, Iron deficiency anemia Medicines: Propofol per Anesthesia Complications: No immediate complications. Estimated blood loss: Minimal. Estimated Blood Loss: Estimated blood loss was minimal. Procedure: Pre-Anesthesia Assessment: - Prior to the procedure, a History and Physical was performed, and patient medications, allergies and sensitivities were reviewed. The patient's tolerance of previous anesthesia was reviewed. - The risks and benefits of the procedure and the sedation options and risks were discussed with the patient. All questions were answered and informed consent was obtained. - Patient identification and proposed procedure were verified prior to the procedure by the physician and the nurse. The procedure was verified in the pre-procedure area in the procedure room. - Mental Status Examination: alert and oriented. Airway Examination: normal oropharyngeal airway and neck mobility. Respiratory Examination: clear to auscultation. CV Examination: normal. Abdominal Examination: bowel sounds present, abdomen soft and non-tender, no masses or organomegaly noted. - ASA Grade Assessment: II - A patient with mild systemic disease. After I obtained informed consent, the scope was passed under direct vision. Throughout the procedure, the patient's blood pressure, pulse, and oxygen saturations were monitored continuously. The Colonoscope was introduced through the anus and advanced to the cecum, identified by appendiceal orifice and ileocecal valve. The colonoscopy was performed without difficulty. The patient tolerated the procedure well. The quality of the bowel preparation was good. Findings: The perianal and digital rectal examinations were normal. Pertinent negatives include normal sphincter tone and no palpable rectal lesions. An 8 mm polyp was found in the ascending colon. The polyp was multi-lobulated. The polyp was removed with a hot snare. Resection and retrieval were complete. Verification of patient identification for the specimen was done by the physician and nurse using the patient's name and date. Estimated blood loss was minimal. A frond-like/villous non-obstructing mass was found at 10 cm proximal to the anus. The mass was partially circumferential (involving one-half of the lumen circumference). The mass measured five cm in length. Oozing was present. Biopsies were taken with a cold forceps for histology. Verification of patient identification for the specimen was done by the physician and nurse using the patient's name and date. Estimated blood loss was minimal. Area was tattooed with an injection of 2 mL of Spot (carbon black). Estimated blood loss was minimal. The retroflexed view of the distal rectum and anal verge was normal and showed no anal or rectal abnormalities. Impression: - One 8 mm polyp in the ascending colon, removed with a hot snare. Resected and retrieved. - Malignant tumor at 10 cm proximal to the anus. Biopsied. Tattooed. - The distal rectum and anal verge are normal on retroflexion view. Recommendation: - Await pathology results. - Refer to a colo-rectal surgeon. - Return patient to hospital lin for ongoing care. Ava Farmer D.O. Ava Farmer, 12/27/2022 9:58:03 AM This report has been signed electronically. Note Initiated On: 12/27/2022 8:59 AM Number of Addenda: 0 I attest to the content of the Intraoperative Record and orders documented therein, exceptions below {[id number]}
[2022-12-27] MEDS: busPIRone 7.5 MG TAB PO SCH ×2 (11:05→21:26)
[2022-12-27] MEDS: METOPROLOL TARTRATE 50 MG TAB PO SCH ×2 (11:05→21:26)
[2022-12-27] MEDS: GABAPENTIN 600 MG TAB PO SCH (11:06)
[2022-12-27] MEDS: MULTIVITAMIN TAB PO SCH (11:06)
[2022-12-27] MEDS: SERTRALINE HCL 100 MG TABLET PO SCH (11:07)
[2022-12-27] MEDS: MAGNESIUM OXIDE 400 MG TAB PO SCH (11:07)
[2022-12-27] MEDS: THIAMINE HCL 100 MG TAB PO SCH (11:08)
[2022-12-27] MEDS: FOLIC ACID 1 MG TAB PO SCH (11:08)
[2022-12-27] MEDS: lisinopril 40 MG TAB PO SCH (11:08)
[2022-12-27] MEDS: PANTOprazole 40 MG in SYRINGE 0 ML IV SCH ×2 (11:09→21:25)
[2022-12-27] MEDS: MAGNESIUM SULFATE / D5W 1 GM/100 ML BAG IV SCH ×2 (13:53→16:10)
[2022-12-27] MEDS ORDERED: OPTIRAY 320 100ml IV ONE (14:10)
--- NOTE | 2022-12-27 14:47 | CT Scan Report ---
CT SCAN OF THE CHEST, ABDOMEN, AND PELVIS WITH IV CONTRAST CLINICAL HISTORY: Rectal mass. Metastatic survey. COMPARISON STUDY: CT scan of the chest, abdomen, and pelvis dated 01/14/2013. TECHNIQUE: Following the IV administration of 87 of Optiray 320, CT scan of the chest, abdomen, and p satnam was performed from the thoracic inlet to the proximal femora. Images are reviewed in the axial, sagittal, and coronal planes. IV contrast was administered without complication. Oral contrast was utilized. A dose lowering technique was utilized adhering to the principles of ALARA. CT DOSE: 446.42 mGy.cm FINDINGS: CHEST: Thyroid: Normal in size and heterogeneous in attenuation. Thoracic aorta: The thoracic aorta is normal in caliber and demonstrates bovine variant arch anatomy. No dissection is seen. Pulmonary vasculature: The pulmonary trunk is normal in caliber. There are no filling defects identif ied in the central pulmonary vessels to indicate pulmonary embolus. Note that this examination was no t protocoled for evaluation of the pulmonary arteries. Heart: The heart is normal in size and without pericardial effusion. Lungs and pleural spaces: There is no airspace consolidation or pleural effusion. The trachea and lala tral airways are clear. There is mild bibasilar atelectasis. Mediastinum: There is no mediastinal lymphadenopathy. Allie: Clear. Axillae: There is no axillary lymphadenopathy. Bony thorax: The skeletal structures are osteopenic. No lytic or blastic lesions are identified. Ther e are chronic/healed right-sided rib fractures. Degenerative changes and kyphoscoliosis is noted in t he thoracic spine. There are mild chronic appearing compression deformities of T4, T5, T6, T7, and T8 . There is a minimal superior endplate compression fracture of T11. ABDOMEN AND PELVIS: Liver: The contrast-enhanced liver is normal in size, contour, and attenuation. There is no intrahepa tic biliary ductal dilatation. The hepatic veins and portal veins are patent. Gallbladder: Unremarkable. Spleen: Normal in size and attenuation. Pancreas: Unremarkable. Adrenal glands: Unremarkable. Kidneys: The contrast enhanced kidneys are normal in size and without hydronephrosis. The kidneys enh ance symmetrically. The renal collecting systems and ureters are filled with excreted IV contrast. Abdominal vasculature: The abdominal aorta is normal in course and caliber nothing mild atherosclerot ic calcification. Stomach and bowel: There is a small hiatal hernia. There is no bowel obstruction. Enteric contrast re aches the rectosigmoid. Mild rectal wall thickening is suggested on axial image #352. There is perire ctal infiltration. The appendix is not visualized. Peritoneum: There is no intraperitoneal free air or abdominal ascites. Lymphadenopathy: There are prominent retroperitoneal lymph nodes. A left periaortic node on image #16 4 measures 9 mm in short axis. A node anterior to the abdominal aorta on image #198 measures 9 mm in short axis. There is mild infiltration around these nodes. Pelvic viscera: The bladder wall is thickened and there is surrounding infiltration. The bladder is f illed with excreted IV contrast. The uterus and adnexa are normal as imaged. A 6 mm nodule/node in th e left pelvis on image #296. Additional smaller nodules/nodes are seen in the presacral upper pelvis on images #279 and #290. Skeletal structures: The skeletal structures are osteopenic. No lytic or blastic lesions are seen. Th ere is chronic deformity of the sacrum. There is moderate lumbosacral spondylosis and scoliosis. IMPRESSION: 1. Rectal wall thickening is suggested and there is perirectal infiltration. This likely corresponds to the reported history of a rectal mass. Correlate with clinical findings and endoscopy results. 2. There are prominent retroperitoneal lymph nodes with mild surrounding infiltration. These are only modest increased in size as compared to the 01/14/2013 examination. These are pathologically indeterm inate. If possible, correlate with any more recent prior imaging studies. Attention on follow-up is r ecommended. 3. There are at least 3 nodes/nodules in the presacral upper pelvis which measure up to 6 mm. These a re pathologically indeterminant but were not seen in 2013. Small metastatic deposits are not excluded . 4. No additional findings are suspicious for metastatic disease in the abdomen or pelvis. 5. There is no evidence of intrathoracic metastatic disease. 6. The bladder wall appears thickened with surrounding inflammation. Correlate with clinical findings and urinalysis. 7. There is no airspace consolidation or pleural effusion. 8. Chronic appearing thoracic compression deformities as above. 9. Additional findings as above. ACT 112: Negative or not required by law. Electronically signed by: Adam Guadarrama M.D. 12/27/2022 2:46 PM
--- NOTE | 2022-12-27 15:06 | Anesthesiology Progress Note ---
Date of Service December 27, 2022 Anesthesia Post Procedure Vital Signs Vital Signs: Temp Pulse Pulse Pulse Resp BP BP 12/27/22 12:17 65 12/27/22 11:30 36.6 C 65 14 172/84 H 12/27/22 10:25 62 16 188/99 H 12/27/22 10:07 62 16 170/90 H 12/27/22 09:52 67 16 147/85 H 12/27/22 08:45 73 12/27/22 08:32 36.3 C L 67 18 184/96 H 184/96 H 12/27/22 07:44 36.5 C 68 16 164/87 H 12/27/22 07:21 12/27/22 03:10 37.2 C 72 20 152/84 H 12/27/22 03:02 67 12/26/22 23:34 36.9 C 71 18 159/87 H 12/26/22 21:59 12/26/22 19:48 37.1 C 80 20 154/77 H 12/26/22 16:27 36.7 C 71 16 139/69 Pulse Ox O2 Del Method 12/27/22 12:17 12/27/22 11:30 99 Room Air 12/27/22 10:25 100 Room Air 12/27/22 10:07 100 Room Air 12/27/22 09:52 100 Room Air 12/27/22 08:45 12/27/22 08:32 100 Room Air 12/27/22 07:44 100 Room Air 12/27/22 07:21 Room Air 12/27/22 03:10 97 Room Air 12/27/22 03:02 12/26/22 23:34 98 Room Air 12/26/22 21:59 Room Air 12/26/22 19:48 99 Room Air 12/26/22 16:27 95 Room Air Transfer of Care Handoff Completed per policy Notes Mental Status: alert / awake / arousable and participated in evaluation Nausea / Vomiting: adequately controlled Pain: adequately controlled Airway Patency, RR, SpO2: stable & adequate BP & HR: stable & adequate Hydration State: stable & adequate Anesthetic Complications: no major complications apparent and Pt Satisfied with anesthetic care
--- NOTE | 2022-12-27 16:10 | Hospitalist Progress Note ---
Date of Service December 27, 2022 Assessment & Plan (1) Anemia: (2) GI bleeding: Plan: Rectal bleeding Acute on chronic blood loss anemia Iron deficiency anemia Rectal mass: Likely Malignancy 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 Marrow suppression from significant alcohol abuse also likely contributing to anemia S/P 1 unit PRBCs -S/P Colonoscopy: One 8 mm polyp in the ascending colon, removed with hot snare. Resected and retrieved. Malignant tumor at 10 cm proximal to the anus. Biopsied. Tattooed. The distal rectum and anal verge are normal on retroflexion view. --Pathology Pending --EGD: Normal esophagus. Normal stomach. Scalloped mucosa was found in the duodenum, suspicious for celiac disease. Biopsied. --CEA:1.7 --CT ABD/Pelvis/Chest:Rectal wall thickening is suggested and there is perirectal infiltration. This likely corresponds to the reported history of a rectal mass. Correlate with clinical findings and endoscopy results. There are prominent retroperitoneal lymph nodes with mild surrounding infiltration. These are only modest increased in size as compared to the 01/14/2013 examination. These are pathologically indeterminate. If possible, correlate with any more recent prior imaging studies. Attention on follow-up is recommended. There are at least 3 nodes/nodules in the presacral upper pelvis which measure up to 6 mm. These are pathologically indeterminant but were not seen in 2013. Small metastatic deposits are not excluded. No additional findings are suspicious for metastatic disease in the abdomen or pelvis. There is no evidence of intrathoracic metastatic disease. The bladder wall appears thickened with surrounding inflammation. Correlate with clinical findings and urinalysis. There is no airspace consolidation or pleural effusion. Chronic appearing thoracic compression deformities as above. -Continue PPI for now Monitor H&H and transfuse as needed Appreciate GI input Received IV Venofer as well Hb 7.4 today Advance diet as tolerated Will need colorectal surgery evaluation as outpatient Hyponatremia Likely secondary to alcohol use Monitor sodium levels Resolved Chronic hypomagnesemia Hypokalemia Replete electrolytes as needed Chronic leg edema Likely secondary to venous stasis -ECHO: Left ventricle is normal in size. Normal left ventricle wall thickness. Left ventricle wall motion is normal. EF 60 to 65%. No significant valve disease. Diastolic function parameters are normal. Monitor (3) Acute electrocardiogram changes: Plan: EKG shows non specific ST changes, may be due to anemia Denies chest pain, dyspnea ECHO showed no wall motion abnormality (4) Alcohol abuse: Plan: Patient reports drinking 6-9 16 oz beers/day Continue protocol with gabapentin and as needed Ativan Continue Triamine, folic acid Monitor for withdrawal (5) Essential hypertension: Plan: Continue metoprolol and lisinopril BP high likely due to alcohol withdrawal Clonidine as needed (6) Seizure: Plan: Patient reports history of seizure however not on any AED Monitor (7) Bipolar affect, depressed: Plan: Continue buspirone and sertraline DVT Px SCDs Re: GI bleeding, Anemia Admission and Anticipated Discharge Date Admission Date: December 24, 2022 Subjective Patient is seen and examined at bedside Had EGD, colonoscopy this morning Anxious during my encounter given possibility of malignancy Tried to reach family on multiple occasions over the phone--no answer/busy tone Patient denies any recurrence of bleeding overnight or this morning Denies any chest pain, dyspnea, dizziness, nausea, abdominal pain Hb 7.4 today Review of Systems Review of Systems: All systems reviewed & are unremarkable except as noted in Subjective Physical Exam Physical Exam: Physical Exam: Vitals signs as noted above General Appearance:Moderately built and nourished, no apparent distress Head: normocephalic, Atraumatic Eyes: normal inspection, EOMI, Pale Neck: supple, Trachea midline Respiratory/Chest: Normal breath sounds, CTA, No accessory muscle use Cardiovascular: S1, S2, No murmur Abdomen/GI:Soft, Non tender, Bowel sounds present Extremities/Musculoskeletal:normal inspection, 1+ Pedal edema Neurologic/Psych:AAOX3, grossly no focal neurological deficits Skin: normal color, warm Results & Data Results & Data Vital Signs (Past 12 Hours) Vital Signs Temp Pulse Pulse Pulse Resp BP BP 12/27/22 12:17 65 12/27/22 11:30 36.6 C 65 14 172/84 H 12/27/22 10:25 62 16 188/99 H 12/27/22 10:07 62 16 170/90 H 12/27/22 09:52 67 16 147/85 H 12/27/22 08:45 73 12/27/22 08:32 36.3 C L 67 18 184/96 H 184/96 H 12/27/22 07:44 36.5 C 68 16 164/87 H 12/27/22 07:21 Pulse Ox O2 Del Method 12/27/22 12:17 12/27/22 11:30 99 Room Air 12/27/22 10:25 100 Room Air 12/27/22 10:07 100 Room Air 12/27/22 09:52 100 Room Air 12/27/22 08:45 12/27/22 08:32 100 Room Air 12/27/22 07:44 100 Room Air 12/27/22 07:21 Room Air Laboratory Results Short CBC 12/27/22 Range/Units 05:40 WBC 4.67 L (4.8-10.8) K/ul Hgb 7.4 L (12.0-16.0) g/dl Hct 23.7 L (37.0-47.0) % Plt Count 244 (130-400) K/uL BMP 12/27/22 05:40 Sodium 137 Potassium 3.5 Chloride 104 Carbon Dioxide 27 BUN 4 L Creatinine 0.50 L Glucose 87 Calcium 8.3 L (1) Anemia Anemia type: unspecified type Qualified Code(s): D64.9 - Anemia, unspecified
[2022-12-28 07:11] LABS: Hemoglobin 8.3 g/dl (12.0-16.0)
[2022-12-28 07:19] LABS: BUN Creatinine Ratio 6.6 (10-20); Calcium 8.4 mg/dl (8.6-10.3); Est GFR (Non-African American) 99.2 ml/min; Magnesium 1.7 mg/dl (1.7-2.4); Potassium 3.4 mmol/L (3.5-5.1)
[2022-12-28] MEDS: busPIRone 7.5 MG TAB PO SCH ×2 (08:47→20:55)
[2022-12-28] MEDS: FOLIC ACID 1 MG TAB PO SCH (08:48)
[2022-12-28] MEDS: lisinopril 40 MG TAB PO SCH (08:49)
[2022-12-28] MEDS: MAGNESIUM OXIDE 400 MG TAB PO SCH (08:49)
[2022-12-28] MEDS: PANTOprazole 40 MG in SYRINGE 0 ML IV SCH ×2 (08:50→20:55)
[2022-12-28] MEDS: MULTIVITAMIN TAB PO SCH (08:50)
[2022-12-28] MEDS: METOPROLOL TARTRATE 50 MG TAB PO SCH ×2 (08:50→20:55)
[2022-12-28] MEDS: SERTRALINE HCL 100 MG TABLET PO SCH (08:50)
[2022-12-28] MEDS: THIAMINE HCL 100 MG TAB PO SCH (08:51)
[2022-12-28] MEDS ORDERED: GABAPENTIN 600 MG TAB PO SCH (09:00)
[2022-12-28] MEDS ORDERED: POTASSIUM CHLORIDE CRTAB 20 MEQ TABCR PO ONE (09:23)
--- NOTE | 2022-12-28 12:36 | Communication Note ---
Date of Service: December 28, 2022 Pt doing well overnight, denies CP, SOB, abd pain, n/v. Notices less rectal bleeding. Reviewed CT chest/abd/pelvis results (below), CEA normal. EGD and colonoscopy bx pending. Pt is aware she is being referred to Colorectal Surgery for OP appt. No new GI plans, jeri sign off; pls recall prn. CT chest/abd/pelvis IMPRESSION: 1. Rectal wall thickening is suggested and there is perirectal infiltration. This likely corresponds to the reported history of a rectal mass. Correlate with clinical findings and endoscopy results. 2. There are prominent retroperitoneal lymph nodes with mild surrounding infiltration. These are only modest increased in size as compared to the 01/14/2013 examination. These are pathologically indeterminate. If possible, correlate with any more recent prior imaging studies. Attention on follow-up is recommended. 3. There are at least 3 nodes/nodules in the presacral upper pelvis which measure up to 6 mm. These are pathologically indeterminant but were not seen in 2013. Small metastatic deposits are not excluded. 4. No additional findings are suspicious for metastatic disease in the abdomen or pelvis. 5. There is no evidence of intrathoracic metastatic disease. 6. The bladder wall appears thickened with surrounding inflammation. Correlate with clinical findings and urinalysis. 7. There is no airspace consolidation or pleural effusion. 8. Chronic appearing thoracic compression deformities as above.
--- NOTE | 2022-12-28 17:16 | Hospitalist Progress Note ---
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 Resected and retrieved. Malignant tumor at 10 cm proximal to the anus. Biopsied. Tattooed. The distal rectum and anal verge are normal on retroflexion view. --Pathology Pending --EGD: Normal esophagus. Normal stomach. Scalloped mucosa was found in the duodenum, suspicious for celiac disease. Biopsied. --CEA:1.7 --CT ABD/Pelvis/Chest:Rectal wall thickening is suggested and there is perirectal infiltration. This likely corresponds to the reported history of a rectal mass. Correlate with clinical findings and endoscopy results. There are prominent retroperitoneal lymph nodes with mild surrounding infiltration. These are only modest increased in size as compared to the 01/14/2013 examination. These are pathologically indeterminate. If possible, correlate with any more recent prior imaging studies. Attention on follow-up is recommended. There are at least 3 nodes/nodules in the presacral upper pelvis which measure up to 6 mm. These are pathologically indeterminant but were not seen in 2013. Small metastatic deposits are not excluded. No additional findings are suspicious for metastatic disease in the abdomen or pelvis. There is no evidence of intrathoracic metastatic disease. The bladder wall appears thickened with surrounding inflammation. Correlate with clinical findings and urinalysis. There is no airspace consolidation or pleural effusion. Chronic appearing thoracic compression deformities as above. -Continue PPI for now Monitor H&H and transfuse as needed Appreciate GI input Received IV Venofer as well Hb 8.3 today Advance diet today Need colorectal surgery evaluation as outpatient Less rectal bleeding today Monitor CBC Follow-up pathology report--pending Likely plan to discharge home in 1 to 2 days if remains stable Hyponatremia Likely secondary to alcohol use Monitor sodium levels Resolved Chronic hypomagnesemia Hypokalemia Replete electrolytes as needed Chronic leg edema Likely secondary to venous stasis -ECHO: Left ventricle is normal in size. Normal left ventricle wall thickness. Left ventricle wall motion is normal. EF 60 to 65%. No significant valve disease. Diastolic function parameters are normal. Monitor (3) Acute electrocardiogram changes: Plan: EKG shows non specific ST changes, may be due to anemia Denies chest pain, dyspnea ECHO showed no wall motion abnormality (4) Alcohol abuse: Plan: Patient reports drinking 6-9 16 oz beers/day Continue protocol with gabapentin and as needed Ativan Continue Triamine, folic acid Monitor for withdrawal (5) Essential hypertension: Plan: Continue metoprolol and lisinopril BP high likely due to alcohol withdrawal Clonidine as needed (6) Seizure: Plan: Patient reports history of seizure however not on any AED Monitor (7) Bipolar affect, depressed: Plan: Continue buspirone and sertraline DVT Px SCDs Re: GI bleeding, Anemia Admission and Anticipated Discharge Date Admission Date: December 24, 2022 Subjective Patient is seen and examined at bedside Reports having minimal rectal bleeding this morning Feels more energetic today Offers no other complaints Plan to be advanced on diet Denies any chest pain, dyspnea, dizziness, nausea, abdominal pain No signs of alcohol withdrawal today Review of Systems Review of Systems: All systems reviewed & are unremarkable except as noted in Subjective Physical Exam Physical Exam: Physical Exam: Vitals signs as noted above General Appearance:Moderately built and nourished, no apparent distress Head: normocephalic, Atraumatic Eyes: normal inspection, EOMI, Pale Neck: supple, Trachea midline Respiratory/Chest: Normal breath sounds, CTA, No accessory muscle use Cardiovascular: S1, S2, No murmur Abdomen/GI:Soft, Non tender, Bowel sounds present Extremities/Musculoskeletal:normal inspection, 1+ Pedal edema Neurologic/Psych:AAOX3, grossly no focal neurological deficits Skin: normal color, warm Results & Data Results & Data Vital Signs (Past 12 Hours) Vital Signs Temp Pulse Pulse Resp BP Pulse Ox O2 Del Method 12/28/22 16:28 36.9 C 68 16 143/76 H 97 Room Air 12/28/22 14:01 73 12/28/22 11:52 36.5 C 65 16 161/88 H 98 Room Air 12/28/22 09:05 Room Air 12/28/22 06:01 62 12/28/22 07:24 36.6 C 67 16 145/74 H 98 Room Air Laboratory Results Short CBC 12/28/22 Range/Units 06:23 Hgb 8.3 L (12.0-16.0) g/dl Hct 26.0 L (37.0-47.0) % BMP 12/28/22 06:23 Sodium 135 L Potassium 3.4 L Chloride 102 Carbon Dioxide 25 BUN 4 L Creatinine 0.61 Glucose 91 Calcium 8.4 L (1) Anemia Anemia type: unspecified type Qualified Code(s): D64.9 - Anemia, unspecified
[2022-12-29 07:36] LABS: Hematocrit (blood only) 25.6 % (37.0-47.0); Mean Corpuscular Hemoglobin 24.6 pg (25.0-34.0); Mean Corpuscular Hgb Conc 31.3 g/dL (32.0-36.0); Mean Corpuscular Volume 78.8 fL (80.0-100.0); Mean Platelet Volume 9.4 fL (9.4-12.4); Platelet Count 267 K/uL (130-400); RDW Coefficient of Variation 20.8 % (11.5-14.5); RDW Standard Deviation 56.3 fL (36.4-46.3); Red Blood Count 3.25 M/uL (4.20-5.40); White Blood Count 5.24 K/ul (4.8-10.8)
[2022-12-29 07:57] LABS: BUN Creatinine Ratio 19.5 (10-20); Calcium 8.9 mg/dl (8.6-10.3); Creatinine Clr Calc Pharmacy 64.4 ml/min; Est GFR (Non-African American) 84.5 ml/min; Magnesium 1.5 mg/dl (1.7-2.4); Potassium 4.7 mmol/L (3.5-5.1)
[2022-12-29] MEDS: busPIRone 7.5 MG TAB PO SCH (08:13)
[2022-12-29] MEDS: FOLIC ACID 1 MG TAB PO SCH (08:14)
[2022-12-29] MEDS: lisinopril 40 MG TAB PO SCH (08:14)
[2022-12-29] MEDS: METOPROLOL TARTRATE 50 MG TAB PO SCH (08:14)
[2022-12-29] MEDS: MAGNESIUM OXIDE 400 MG TAB PO SCH (08:14)
[2022-12-29] MEDS: SERTRALINE HCL 100 MG TABLET PO SCH (08:15)
[2022-12-29] MEDS: PANTOprazole 40 MG in SYRINGE 0 ML IV SCH (08:15)
[2022-12-29] MEDS: THIAMINE HCL 100 MG TAB PO SCH (08:15)
[2022-12-29] MEDS: MULTIVITAMIN TAB PO SCH (08:15)
[2022-12-29] MEDS ORDERED: MAGNESIUM SULFATE / D5W 1 GM/100 ML BAG IV ONE (09:02)
--- NOTE | 2022-12-29 10:13 | Hospitalist Progress Note ---
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 Resected and retrieved. Malignant tumor at 10 cm proximal to the anus. Biopsied. Tattooed. The distal rectum and anal verge are normal on retroflexion view. --Pathology Pending --EGD: Normal esophagus. Normal stomach. Scalloped mucosa was found in the duodenum, suspicious for celiac disease. Biopsied. --CEA:1.7 --CT ABD/Pelvis/Chest:Rectal wall thickening is suggested and there is perirectal infiltration. This likely corresponds to the reported history of a rectal mass. Correlate with clinical findings and endoscopy results. There are prominent retroperitoneal lymph nodes with mild surrounding infiltration. These are only modest increased in size as compared to the 01/14/2013 examination. These are pathologically indeterminate. If possible, correlate with any more recent prior imaging studies. Attention on follow-up is recommended. There are at least 3 nodes/nodules in the presacral upper pelvis which measure up to 6 mm. These are pathologically indeterminant but were not seen in 2013. Small metastatic deposits are not excluded. No additional findings are suspicious for metastatic disease in the abdomen or pelvis. There is no evidence of intrathoracic metastatic disease. The bladder wall appears thickened with surrounding inflammation. Correlate with clinical findings and urinalysis. There is no airspace consolidation or pleural effusion. Chronic appearing thoracic compression deformities as above. -Continue PPI for now Monitor H&H and transfuse as needed Appreciate GI input Received IV Venofer as well Hb 8.0 today Tolerated low fiber diet today Need colorectal surgery evaluation as outpatient And to discharge home today. Advised to avoid NSAIDs Hyponatremia Likely secondary to alcohol use Monitor sodium levels Resolved Chronic hypomagnesemia Hypokalemia Replete electrolytes as needed Chronic leg edema Likely secondary to venous stasis -ECHO: Left ventricle is normal in size. Normal left ventricle wall thickness. Left ventricle wall motion is normal. EF 60 to 65%. No significant valve disease. Diastolic function parameters are normal. Monitor (3) Acute electrocardiogram changes: Plan: EKG shows non specific ST changes, may be due to anemia Denies chest pain, dyspnea ECHO showed no wall motion abnormality (4) Alcohol abuse: Plan: Patient reports drinking 6-9 16 oz beers/day Continue protocol with gabapentin and as needed Ativan Continue Thiamine, folic acid Monitor for withdrawal Counseled to quit drinking (5) Essential hypertension: Plan: Continue metoprolol and lisinopril BP high likely due to alcohol withdrawal Clonidine as needed (6) Seizure: Plan: Patient reports history of seizure however not on any AED Monitor (7) Bipolar affect, depressed: Plan: Continue buspirone and sertraline DVT Px SCDs Re: GI bleeding, Anemia Disposition Home Admission and Anticipated Discharge Date Admission Date: December 24, 2022 Subjective Patient is seen and examined at bedside States feeling well today Noticed some minimal blood after wiping today but otherwise no bleeding issues Tolerated low fiber diet Denies any chest pain, dyspnea, dizziness, nausea, abdominal pain No signs of alcohol withdrawal Plan to discharge home today Review of Systems Review of Systems: All systems reviewed & are unremarkable except as noted in Subjective Physical Exam Physical Exam: Physical Exam: Vitals signs as noted above General Appearance:Moderately built and nourished, no apparent distress Head: normocephalic, Atraumatic Eyes: normal inspection, EOMI, Pale Neck: supple, Trachea midline Respiratory/Chest: Normal breath sounds, CTA, No accessory muscle use Cardiovascular: S1, S2, No murmur Abdomen/GI:Soft, Non tender, Bowel sounds present Extremities/Musculoskeletal:normal inspection, Trace Pedal edema Neurologic/Psych:AAOX3, grossly no focal neurological deficits Skin: normal color, warm Results & Data Results & Data Vital Signs (Past 12 Hours) Vital Signs Temp Pulse Pulse Pulse Resp BP BP 12/29/22 07:59 12/29/22 07:38 36.4 C L 68 18 174/94 H 12/29/22 06:35 64 12/29/22 00:26 36.7 C 68 18 169/93 H 12/29/22 00:23 69 Pulse Ox O2 Del Method 12/29/22 07:59 Room Air 12/29/22 07:38 100 Room Air 12/29/22 06:35 12/29/22 00:26 95 Room Air 12/29/22 00:23 Laboratory Results Short CBC 12/29/22 Range/Units 07:02 WBC 5.24 (4.8-10.8) K/ul Hgb 8.0 L (12.0-16.0) g/dl Hct 25.6 L (37.0-47.0) % Plt Count 267 (130-400) K/uL [facility] 12/29/22 07:02 Sodium 137 Potassium 4.7 D Chloride 103 Carbon Dioxide 29 BUN 15 Creatinine 0.77 Glucose 102 H Calcium 8.9 (1) Anemia Anemia type: unspecified type Qualified Code(s): D64.9 - Anemia, unspecified
--- NOTE | 2022-12-29 10:21 | Discharge Summary ---
Date of Service December 29, 2022 Admission HPI Per Admitting Provider rectal bleeding anemia Admission Exam Per Admitting Provider Physical Exam: Vitals signs as noted above General Appearance:Moderately built and nourished, no apparent distress Head: normocephalic, Atraumatic Eyes: normal inspection, EOMI, Pale Neck: supple, Trachea midline Respiratory/Chest: Normal breath sounds, CTA, No accessory muscle use Cardiovascular: S1, S2, No murmur Abdomen/GI:Soft, Non tender, Bowel sounds present Extremities/Musculoskeletal:normal inspection, 2+ Pedal edema Neurologic/Psych:AAOX3, grossly no focal neurological deficits Skin: normal color, warm Principal Diagnosis Rectal bleeding Acute on chronic blood loss anemia Iron deficiency anemia Rectal mass: Likely Malignancy 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 Chronic hypomagnesemia Alcohol abuse Discharge Data Allergies Allergy/AdvReac Type Severity Reaction Status Date / Time No Known Allergies Allergy Verified 12/27/22 08:36 Consultations 12/24/22 17:59 ED Decision to Admit Stat 12/24/22 20:57 Consult Gastroenterology Routine Procedures Performed Operation Date: 12/27/22 17:15 Actual Procedures p EGD Biopsy Cytology - Ava Farmer DO s Colonoscopy Polypectomy - Ava Farmer DO Ordered Studies 12/25/22 23:52 CT head/brain wo con Urgent 12/27/22 10:33 CT abd pelvis oral and IV con Routine CT chest diagnostic w con Routine Laboratory Results WBC 5.24 K/ul (4.8-10.8) 12/29/22 07:02 RBC 3.25 M/uL (4.20-5.40) L 12/29/22 07:02 Hgb 8.0 g/dl (12.0-16.0) L 12/29/22 07:02 Hct 25.6 % (37.0-47.0) L 12/29/22 07:02 MCV 78.8 fL (80.0-100.0) L 12/29/22 07:02 MCH 24.6 pg (25.0-34.0) L 12/29/22 07:02 MCHC 31.3 g/dL (32.0-36.0) L 12/29/22 07:02 RDW Std Deviation 56.3 fL (36.4-46.3) H 12/29/22 07:02 RDW Coeff of Kendall 20.8 % (11.5-14.5) H 12/29/22 07:02 Plt Count 267 K/uL (130-400) 12/29/22 07:02 MPV 9.4 fL (9.4-12.4) 12/29/22 07:02 Immature Gran % (Auto) 0.3 % 12/24/22 16:43 Neut % (Auto) 60.0 % 12/24/22 16:43 Lymph % (Auto) 28.3 % 12/24/22 16:43 [place] % (Auto) 10.8 % 12/24/22 16:43 Eos % (Auto) 0.3 % 12/24/22 16:43 Baso % (Auto) 0.3 % 12/24/22 16:43 Neut # (Auto) 4.27 K/uL (1.40-6.50) 12/24/22 16:43 Lymph # (Auto) 2.01 K/uL (1.2-3.4) 12/24/22 16:43 [place] # (Auto) 0.77 K/uL (0.11-0.59) H 12/24/22 16:43 Eos # (Auto) 0.02 K/uL (0-0.50) 12/24/22 16:43 Baso # (Auto) 0.02 K/uL (0-0.2) 12/24/22 16:43 Immature Gran # (Auto) 0.02 K/uL (0.01-0.20) 12/24/22 16:43 Polychromasia 1+ 12/24/22 16:43 Hypochromasia Present 12/24/22 16:43 Microcytosis Present 12/24/22 16:43 Peripher Smr Path Cons 12/24/22 16:43 PT 11.0 Seconds (9.0-12.0) 12/24/22 16:43 INR 1.0 (0.9-1.1) 12/24/22 16:43 APTT 24.3 Seconds (21.0-31.0) 12/24/22 16:43 PTT Ratio 0.9 12/24/22 16:43 Sodium 137 mmol/L (136-145) 12/29/22 07:02 Potassium 4.7 mmol/L (3.5-5.1) D 12/29/22 07:02 Chloride 103 mmol/L (98-107) 12/29/22 07:02 Carbon Dioxide 29 mmol/L (21-32) 12/29/22 07:02 Anion Gap 5 (3-11) 12/29/22 07:02 BUN 15 mg/dl (6-23) 12/29/22 07:02 Creatinine 0.77 mg/dl (0.6-1.2) 12/29/22 07:02 Est Cr Clr Drug Dosing 64.4 ml/min 12/29/22 07:02 Est GFR ( Amer) 98.0 ml/min 12/29/22 07:02 Est GFR (Non-Af Amer) 84.5 ml/min 12/29/22 07:02 BUN/Creatinine Ratio 19.5 (10-20) 12/29/22 07:02 Glucose 102 mg/dl (70-99(Fasting)) H 12/29/22 07:02 Calcium 8.9 mg/dl (8.6-10.3) 12/29/22 07:02 Magnesium 1.5 mg/dl (1.7-2.4) L 12/29/22 07:02 Iron 21 mcg/dl (35-150) L 12/25/22 05:51 Unsaturated IBC 312 mcg/dl (155-355) 12/25/22 05:51 Transferrin 266 mg/dl (200-360) 12/25/22 05:51 Ferritin 15.0 ng/ml (8-388) 12/25/22 05:51 Total Bilirubin 0.3 mg/dl (0.2-1.0) 12/24/22 16:43 AST 55 U/L (13-39) H 12/24/22 16:43 ALT 17 U/L (7-52) 12/24/22 16:43 Alkaline Phosphatase 85 U/L (34-104) 12/24/22 16:43 Total Protein 7.0 gm/dl (6.0-8.3) 12/24/22 16:43 Albumin 4.2 gm/dl (3.4-5.0) 12/24/22 16:43 Globulin 2.8 gm/dl (2.5-4.0) 12/24/22 16:43 Albumin/Globulin Ratio 1.5 (0.9-2) 12/24/22 16:43 Carcinoembryonic Ag 1.7 ng/ml (0-2.5) 12/27/22 11:16 Vitamin B12 368 pg/ml (180-914) 12/25/22 05:51 Folate > 22.30 ng/ml (>5.38) 12/25/22 05:51 SARS-CoV-2, RNA, NAAT NEGATIVE (NEGATIVE) 12/24/22 17:12 Blood Type O Positive 12/24/22 16:43 Blood Type Recheck O Positive 12/24/22 17:48 Antibody Screen NEGATIVE 12/24/22 16:43 Crossmatch See Detail 12/24/22 16:[address] 12/25/22 23:52 Exam(s): CT HEAD Without Contrast EXAM: CT Head Without Intravenous Contrast CLINICAL HISTORY: Headache. TECHNIQUE: Axial computed tomography images of the head/brain without intravenous contrast. CTDI is 37.62 mGy and DLP is 537.48 mGy-cm. Automated exposure control was utilized for the study. A dose lowering technique was utilized adhering to the principles of ALARA. COMPARISON: CT head 10/22/2013 FINDINGS: Brain: No intracranial hemorrhage, mass-effect or midline shift. No abnormal extra axial fluid. No evidence of acute infarct. Mild periventricular white matter hypodensities are most consistent with chronic microangiopathy. Ventricles: Unremarkable. No ventriculomegaly. Bones/joints: Unremarkable. No acute fracture. Soft tissues: Unremarkable. Sinuses: Unremarkable as visualized. No acute sinusitis. Mastoid air cells: Unremarkable as visualized. No mastoid effusion. IMPRESSION: No acute intracranial finding. Electronically signed by: Dinah Vidal MD 12/26/22 01:36 AM Abdomen/Pelvis CT 12/27/22 10:33 CT SCAN OF THE CHEST, ABDOMEN, AND PELVIS WITH IV CONTRAST CLINICAL HISTORY: Rectal mass. Metastatic survey. COMPARISON STUDY: CT scan of the chest, abdomen, and pelvis dated 01/14/2013. TECHNIQUE: Following the IV administration of 87 of Optiray 320, CT scan of the chest, abdomen, and pelvis was performed from the thoracic inlet to the proximal femora. Images are reviewed in the axial, sagittal, and coronal planes. IV contrast was administered without complication. Oral contrast was utilized. A dose lowering technique was utilized adhering to the principles of ALARA. CT DOSE: 446.42 mGy.cm FINDINGS: CHEST: Thyroid: Normal in size and heterogeneous in attenuation. Thoracic aorta: The thoracic aorta is normal in caliber and demonstrates bovine variant arch anatomy. No dissection is seen. Pulmonary vasculature: The pulmonary trunk is normal in caliber. There are no filling defects identified in the central pulmonary vessels to indicate pul monary embolus. Note that this examination was not protocoled for evaluation of the pulmonary arteries. Heart: The heart is normal in size and without pericardial effusion. Lungs and pleural spaces: There is no airspace consolidation or pleural effusion. The trachea and central airways are clear. There is mild bibasilar atelectasis. Mediastinum: There is no mediastinal lymphadenopathy. Allie: Clear. Axillae: There is no axillary lymphadenopathy. Bony thorax: The skeletal structures are osteopenic. No lytic or blastic lesions are identified. There are chronic/healed right-sided rib fractures. Degenerative changes and kyphoscoliosis is noted in the thoracic spine. There are mild chronic appearing compression deformities of T4, T5, T6, T7, and T8. There is a minimal superior endplate compression fracture of T11. ABDOMEN AND PELVIS: Liver: The contrast-enhanced liver is normal in size, contour, and attenuation. There is no intrahepatic biliary ductal dilatation. The hepatic veins and portal veins are patent. Gallbladder: Unremarkable. Spleen: Normal in size and attenuation. Pancreas: Unremarkable. Adrenal glands: Unremarkable. Kidneys: The contrast enhanced kidneys are normal in size and without hydronephrosis. The kidneys enhance symmetrically. The renal collecting systems and ureters are filled with excreted IV contrast. Abdominal vasculature: The abdominal aorta is normal in course and caliber nothing mild atherosclerotic calcification. Stomach and bowel: There is a small hiatal hernia. There is no bowel obstruction. Enteric contrast reaches the rectosigmoid. Mild rectal wall thickening is suggested on axial image #352. There is perirectal infiltration. The appendix is not visualized. Peritoneum: There is no intraperitoneal free air or abdominal ascites. Lymphadenopathy: There are prominent retroperitoneal lymph nodes. A left periaortic node on image #164 measures 9 mm in short axis. A node anterior to the abdominal aorta on image #198 measures 9 mm in short axis. There is mild infiltration around these nodes. Pelvic viscera: The bladder wall is thickened and there is surrounding infiltration. The bladder is filled with excreted IV contrast. The uterus and adnexa are normal as imaged. A 6 mm nodule/node in the left pelvis on image #296. Additional smaller nodules/nodes are seen in the presacral upper pelvis on images #279 and #290. Skeletal structures: The skeletal structures are osteopenic. No lytic or blastic lesions are seen. There is chronic deformity of the sacrum. There is moderate lumbosacral spondylosis and scoliosis. IMPRESSION: 1. Rectal wall thickening is suggested and there is perirectal infiltration. This likely corresponds to the reported history of a rectal mass. Correlate with clinical findings and endoscopy results. 2. There are prominent retroperitoneal lymph nodes with mild surrounding infiltration. These are only modest increased in size as compared to the 01/14/2013 examination. These are pathologically indeterminate. If possible, correlate with any more recent prior imaging studies. Attention on follow-up is recommended. 3. There are at least 3 nodes/nodules in the presacral upper pelvis which measure up to 6 mm. These are pathologically indeterminant but were not seen in 2013. Small metastatic deposits are not excluded. 4. No additional findings are suspicious for metastatic disease in the abdomen or pelvis. 5. There is no evidence of intrathoracic metastatic disease. 6. The bladder wall appears thickened with surrounding inflammation. Correlate with clinical findings and urinalysis. 7. There is no airspace consolidation or pleural effusion. 8. Chronic appearing thoracic compression deformities as above. 9. Additional findings as above. ACT 112: Negative or not required by law. Electronically signed by: Adam Guadarrama M.D. 12/27/2022 2:[address] 12/27/22 10:33 CT SCAN OF THE CHEST, ABDOMEN, AND PELVIS WITH IV CONTRAST CLINICAL HISTORY: Rectal mass. Metastatic survey. COMPARISON STUDY: CT scan of the chest, abdomen, and pelvis dated 01/14/2013. TECHNIQUE: Following the IV administration of 87 of Optiray 320, CT scan of the chest, abdomen, and pelvis was performed from the thoracic inlet to the proximal femora. Images are reviewed in the axial, sagittal, and coronal planes. IV contrast was administered without complication. Oral contrast was utilized. A dose lowering technique was utilized adhering to the principles of ALARA. CT DOSE: 446.42 mGy.cm FINDINGS: CHEST: Thyroid: Normal in size and heterogeneous in attenuation. Thoracic aorta: The thoracic aorta is normal in caliber and demonstrates bovine variant arch anatomy. No dissection is seen. Pulmonary vasculature: The pulmonary trunk is normal in caliber. There are no filling defects identified in the central pulmonary vessels to indicate pulmonary embolus. Note that this examination was not protocoled for evaluation of the pulmonary arteries. Heart: The heart is normal in size and without pericardial effusion. Lungs and pleural spaces: There is no airspace consolidation or pleural effusion. The trachea and central airways are clear. There is mild bibasilar atelectasis. Mediastinum: There is no mediastinal lymphadenopathy. Allie: Clear. Axillae: There is no axillary lymphadenopathy. Bony thorax: The skeletal structures are osteopenic. No lytic or blastic lesions are identified. There are chronic/healed right-sided rib fractures. Degenerative changes and kyphoscoliosis is noted in the thoracic spine. There are mild chronic appearing compression deformities of T4, T5, T6, T7, and T8. There is a minimal superior endplate compression fracture of T11. ABDOMEN AND PELVIS: Liver: The contrast-enhanced liver is normal in size, contour, and attenuation. There is no intrahepatic biliary ductal dilatation. The hepatic veins and portal veins are patent. Gallbladder: Unremarkable. Spleen: Normal in size and attenuation. Pancreas: Unremarkable. Adrenal glands: Unremarkable. Kidneys: The contrast enhanced kidneys are normal in size and without hydronephrosis. The kidneys enhance symmetrically. The renal collecting systems and ureters are filled with excreted IV contrast. Abdominal vasculature: The abdominal aorta is normal in course and caliber nothing mild atherosclerotic calcification. Stomach and bowel: There is a small hiatal hernia. There is no bowel obstruction. Enteric contrast reaches the rectosigmoid. Mild rectal wall thickening is suggested on axial image #352. There is perirectal infiltration. The appendix is not visualized. Peritoneum: There is no intraperitoneal free air or abdominal ascites. Lymphadenopathy: There are prominent retroperitoneal lymph nodes. A left periaortic node on image #164 measures 9 mm in short axis. A node anterior to the abdominal aorta on image #198 measures 9 mm in short axis. There is mild infiltration around these nodes. Pelvic viscera: The bladder wall is thickened and there is surrounding infiltration. The bladder is filled with excreted IV contrast. The uterus and adnexa are normal as imaged. A 6 mm nodule/node in the left pelvis on image #296. Additional smaller nodules/nodes are seen in the presacral upper pelvis on images #279 and #290. Skeletal structures: The skeletal structures are osteopenic. No lytic or blastic lesions are seen. There is chronic deformity of the sacrum. There is moderate lumbosacral spondylosis and scoliosis. IMPRESSION: 1. Rectal wall thickening is suggested and there is perirectal infiltration. This likely corresponds to the reported history of a rectal mass. Correlate with clinical findings and endoscopy results. 2. There are prominent retroperitoneal lymph nodes with mild surrounding infiltration. These are only modest increased in size as compared to the 01/14/2013 examination. These are pathologically indeterminate. If possible, correlate with any more recent prior imaging studies. Attention on follow-up is recommended. 3. There are at least 3 nodes/nodules in the presacral upper pelvis which measure up to 6 mm. These are pathologically indeterminant but were not seen in 2013. Small metastatic deposits are not excluded. 4. No additional findings are suspicious for metastatic disease in the abdomen or pelvis. 5. There is no evidence of intrathoracic metastatic disease. 6. The bladder wall appears thickened with surrounding inflammation. Correlate with clinical findings and urinalysis. 7. There is no airspace consolidation or pleural effusion. 8. Chronic appearing thoracic compression deformities as above. 9. Additional findings as above. ACT 112: Negative or not required by law. Electronically signed by: Adam Guadarrama M.D. 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 Resected and retrieved. Malignant tumor at 10 cm proximal to the anus. Biopsied. Tattooed. The distal rectum and anal verge are normal on retroflexion view. --Pathology Pending --EGD: Normal esophagus. Normal stomach. Scalloped mucosa was found in the duodenum, suspicious for celiac disease. Biopsied. --CEA:1.7 --CT ABD/Pelvis/Chest:Rectal wall thickening is suggested and there is perirectal infiltration. This likely corresponds to the reported history of a rectal mass. Correlate with clinical findings and endoscopy results. There are prominent retroperitoneal lymph nodes with mild surrounding infiltration. These are only modest increased in size as compared to the 01/14/2013 examination. These are pathologically indeterminate. If possible, correlate with any more recent prior imaging studies. Attention on follow-up is recommended. There are at least 3 nodes/nodules in the presacral upper pelvis which measure up to 6 mm. These are pathologically indeterminant but were not seen in 2013. Small metastatic deposits are not excluded. No additional findings are suspicious for metastatic disease in the abdomen or pelvis. There is no evidence of intrathoracic metastatic disease. The bladder wall appears thickened with surrounding inflammation. Correlate with clinical findings and urinalysis. There is no airspace consolidation or pleural effusion. Chronic appearing thoracic compression deformities as above. -Continue PPI for now Monitor H&H and transfuse as needed Appreciate GI input Received IV Venofer as well Hb 8.0 today Tolerated low fiber diet today Need colorectal surgery evaluation as outpatient And to discharge home today. Advised to avoid NSAIDs Hyponatremia Likely secondary to alcohol use Monitor sodium levels Resolved Chronic hypomagnesemia Hypokalemia Replete electrolytes as needed Chronic leg edema Likely secondary to venous stasis -ECHO: Left ventricle is normal in size. Normal left ventricle wall thickness. Left ventricle wall motion is normal. EF 60 to 65%. No significant valve disease. Diastolic function parameters are normal. Monitor (3) Acute electrocardiogram changes: EKG shows non specific ST changes, may be due to anemia Denies chest pain, dyspnea ECHO showed no wall motion abnormality (4) Alcohol abuse: Patient reports drinking 6-9 16 oz beers/day Continue protocol with gabapentin and as needed Ativan Continue Thiamine, folic acid Monitor for withdrawal Counseled to quit drinking (5) Essential hypertension: Continue metoprolol and lisinopril BP high likely due to alcohol withdrawal Clonidine as needed (6) Seizure: Patient reports history of seizure however not on any AED Monitor (7) Bipolar affect, depressed: Continue buspirone and sertraline DVT Px SCDs Re: GI bleeding, Anemia Disposition Home Total Time Total Time Spent Total Time Spent (In Minutes): 45 minutes Discharge Plan Discharge Items Patient Disposition: Home - Self-Care Reason For Visit: ANEMIA Discharge Diagnosis: Rectal bleeding Acute on chronic blood loss anemia Iron deficiency anemia Rectal mass: Likely Malignancy 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 Chronic hypomagnesemia Alcohol abuse Activity: Per Instructions section Exercise/Sports: Wait until after follow-up appointment Non-emergency contact: Primary Care Provider, Surgeon and Retail [employer]cer Call non-emergency contact if: you have any medication questions, your symptoms worsen, your pain is concerning for you and you have a fever Follow-up/Referrals: Shelli Ritter MD [Primary Care Provider] - Diet: Heart Healthy and Low Fiber Addtl Attending Provider Instructions: Follow-up with your primary care physician in 1 week Follow-up with colorectal surgeon for further evaluation of rectal mass as advised Follow-up with your cable maintainer as advised -- Quit drinking alcohol as advised --Your pathology report is pending at the time of discharge. Follow-up with your physician for results. Seek immediate medical attention if your symptoms reoccur or worsen Please take all medications as instructed on discharge list below. Please call if you have any questions or problems. You can reach a [facility] hospitalist on duty at [facility] 24 hours a day by calling [phone] Pending Studies at Discharge: Yes Studies:: Pathology report Stand-Alone Forms: My [facility], Smoking Cessation Medications and DC Order Prescriptions: New metoprolol tartrate 50 mg Tablet 50 mg PO BID Qty: 60 1RF folic acid 1 mg Tablet 1 mg PO QAM Qty: 30 0RF thiamine HCl (vitamin B1) 100 mg Tablet 100 mg PO QAM Qty: 30 0RF pantoprazole [Protonix] 40 mg tablet,delayed release (DR/EC) 40 mg PO DAILY Qty: 30 0RF ferrous sulfate 325 mg (65 mg iron) tablet 325 mg PO DAILY Qty: 30 1RF Continued multivitamin Tablet 1 tab PO DAILY sertraline 100 mg tablet 100 mg PO DAILY magnesium oxide 400 mg (241.3 mg magnesium) tablet 800 mg PO DAILY buspirone 7.5 mg tablet 15 mg PO BID lisinopril 40 mg tablet 40 mg PO DAILY Discontinued metoprolol tartrate 25 mg tablet 25 mg PO BID Discharge Orders: Discharge Order (Routine); Ordered 12/29/22 Ordered By: Thuan Cade Admission Data Admit Date/Time: 12/24/22 18:38 Attending Provider: Thuan Cade Admit Provider: Thuan Cade Primary Care Provider: Shelli Ritter Other Providers: Thuan Cade ; Whelan,Shanti C. Jr Other Interventions: Discharge Summary Assessment (RN) Last Done: 12/27/22 10:25
== END 2022-12-29 13:01 | disposition home or self-care (01) | DRG 375 ==
LOC: ED 16:04 → 3W 18:38 → 2N 22:24

== ENCOUNTER 2023-06-03 13:42 | Inpatient (IN) ==
[2023-06-03 14:50] LABS: Hematocrit (blood only) 29.2 % (37.0-47.0); Hemoglobin 9.9 g/dl (12.0-16.0); Mean Corpuscular Hgb Conc 33.9 g/dL (32.0-36.0); Mean Corpuscular Volume 97.3 fL (80.0-100.0); Mean Platelet Volume 9.3 fL (9.4-12.4); Platelet Count 147 K/uL (130-400); RDW Coefficient of Variation 14.2 % (11.5-14.5); White Blood Count 3.92 K/ul (4.8-10.8)
--- NOTE | 2023-06-03 15:01 | XRay Report ---
XR chest 1V not portable HISTORY: 58 years-old Female Weakness acute weakness COMPARISON: PET CT 01/26/2023 TECHNIQUE: AP view of the chest FINDINGS: Cardiac silhouette is enlarged. Right IJ [id number] catheter. No pneumothorax, pleural effusion, a irspace consolidation or pulmonary edema. Sigmoid thoracolumbar scoliosis. Healed chronic right-sided rib fractures. Bones appear grossly intact. IMPRESSION: Cardiomegaly without acute process. ACT 112: Negative or not required by law. The above report was generated using voice recognition software. It may contain grammatical, syntax o r spelling errors. Electronically signed by: Calderon Sky M.D. 06/03/2023 3:00 PM
[2023-06-03 15:12] LABS: Basophils # (auto) 0.01 K/uL (0.00-0.20); Basophils % (auto) 0.3 %; Eosinophils # (auto) 0.01 K/uL (0.00-0.50); Eosinophils % (auto) 0.3 %; Immature Granulocytes # (auto) 0.03 K/uL (0.01-0.20); Immature Granulocytes % (auto) 0.8 %; Lymphocytes # (auto) 0.18 K/uL (1.20-3.40); Lymphocytes % (auto) 4.6 %; Monocytes # (auto) 0.09 K/uL (0.11-0.59); Monocytes % (auto) 2.3 %; Neutrophils % (auto) 91.7 %
[2023-06-03 15:13] LABS: Alanine Aminotransferase 33 U/L (7-52); Albumin Globulin Ratio 1.3 (0.9-2); Albumin Level 3.8 gm/dl (3.4-5.0); Alkaline Phosphatase 116 U/L (34-104); Anion Gap 9 (3-11); Aspartate Aminotransferase 94 U/L (13-39); Bilirubin,Total 0.9 mg/dl (0.2-1.0); Blood Urea Nitrogen 9 mg/dl (6-23); Carbon Dioxide 29 mmol/L (21-32); Chloride 90 mmol/L (98-107); Est GFR (African American) 114.8 ml/min; Est GFR (Non-African American) 99.1 ml/min; Glucose 119 mg/dl (70-99(Fasting)); Magnesium 1.2 mg/dl (1.7-2.4); Sodium 128 mmol/L (136-145); Total Protein 6.8 gm/dl (6.0-8.3)
[2023-06-03 15:19] LABS: Troponin I High Sensitivity 9.1 pg/ml (0-14)
[2023-06-03 15:26] LABS: INR 1.1 (0.9-1.1); Partial Thromboplastin Ratio 0.9; Partial Thromboplastin Time 26.5 Seconds (21.0-31.0); Prothrombin Time 11.5 Seconds (9.0-12.0)
[2023-06-03 15:28] LABS: Thyroid Stimulating Hormone 2.221 uIu/ml (0.300-4.500)
--- NOTE | 2023-06-03 16:07 | Electrocardiogram Report ---
Test Reason : Blood Pressure : / mmHG Vent. Rate : 086 BPM Atrial Rate : 086 BPM P-R Int : 130 ms QRS Dur : 052 ms QT Int : 370 ms P-R-T Axes : -20 -18 016 degrees QTc Int : 442 ms Normal sinus rhythm Normal ECG When compared with ECG of 25-DEC-2022 06:21, QRS duration has decreased Confirmed by Drake Morillo ([id number]) on 06/03/2023 4:06:44 PM Referred By: Confirmed By:Drake Morillo
--- NOTE | 2023-06-03 18:50 | CT Scan Report ---
CT SCAN OF THE BRAIN WITHOUT IV CONTRAST CLINICAL HISTORY: Fall. COMPARISON STUDY: CT of the brain dated 12/26/2022. TECHNIQUE: Unenhanced axial CT scan of the brain is performed from the vertex to the skull base. A do se lowering technique was utilized adhering to the principles of ALARA. CT DOSE: 1035.89 mGy.cm FINDINGS: Brain parenchyma: There is age-related involutional change noting minimal microangiopathic disease. T here is no hemorrhage, mass effect, or evidence of acute territorial ischemia by CT criteria. Yeh-wh ite matter differentiation is preserved. No extra-axial fluid collection is seen. Ventricles, sulci, cisterns: Prominent secondary to involutional change. Intracranial vasculature: There is mild atherosclerotic calcification of the cavernous carotid arteri es. Calvarium: There is no depressed calvarial fracture. Sinuses and mastoids: The visualized paranasal sinuses are clear. The mastoid air cells are well pneu matized. Orbits: The bony orbits are grossly intact. IMPRESSION: There is no hemorrhage, mass effect, or evidence of acute territorial ischemia by CT bria lowe. ACT 112: Negative or not required by law. Electronically signed by: Adam Guadarrama M.D. 06/03/2023 6:49 PM
--- NOTE | 2023-06-03 18:54 | CT Scan Report ---
CT SCAN OF THE CERVICAL SPINE CLINICAL HISTORY: Fall. COMPARISON STUDY: CT of the cervical spine dated 10/22/2013. TECHNIQUE: CT scan of the cervical spine is performed from the skull base to the upper thoracic spine . Images are reviewed in the axial, sagittal, and coronal planes. IV contrast was not administered fo r this examination. A dose lowering technique was utilized adhering to the principles of ALARA. FINDINGS: Skeletal structures: The skeletal structures are well mineralized. There is no evidence of fracture o r subluxation involving the cervical spine. Vertebral body height and alignment are maintained. Ther e is straightening of the cervical lordosis. Small anterior osteophytes are seen throughout. The odon toid process and lateral masses are intact. The atlantoaxial articulation is preserved noting product selene degenerative change. The spinous processes appear intact. There is mild multilevel facet arthropa thy. Intervertebral discs: There is mild/moderate disc space narrowing at C5-C6 and C6-C7. Central canal: Posterior disc osteophyte complexes at C4-C5, C5-C6, and C6-C7 may contribute to acqui red compromise of the central canal. Soft tissues: The prevertebral and paraspinous soft tissues are within normal limits. A central venou s infusion port catheter is partially visualized at the right thoracic inlet. Calvarium: The visualized calvarium at the skull base appears intact. Brain parenchyma: Partially visualized brain parenchyma at the skull base is within normal limits. Sinuses and mastoids: The visualized paranasal sinuses are clear. The mastoid air cells are well pneu matized. Cerumen is noted in the external auditory canals. Lung apices: Clear as visualized. IMPRESSION: 1. There is no evidence of cervical spine fracture or subluxation. 2. Spondylotic change as above. ACT 112: Negative or not required by law. Electronically signed by: Adam Guadarrama M.D. 06/03/2023 6:52 PM
[2023-06-03] MEDS ORDERED: ONDANSETRON INJ 2 MG/ML 2 ML VIAL IV STA (19:21)
[2023-06-03] MEDS ORDERED: SODIUM CHLORIDE 0.9% 500 ML IV ONE (19:21)
[2023-06-03] MEDS ORDERED: MoRPHine SULFATE 4 MG/ML 1 ML CARP\\VIAL IV STA (19:21)
[2023-06-03] MEDS ORDERED: MAGNESIUM SULFATE / D5W 1 GM/100 ML BAG IV STA (19:22)
--- NOTE | 2023-06-03 19:34 | Emergency Department Note ---
History of Present Illness General Chief complaint: Fall Stated complaint: FALL, BACK PAIN Time Seen by Provider: 06/03/23 19:09 History of Present Illness Maximum Pain Intensity: 8 This is a 58-year-old female presenting to the emergency department from home via EMS for evaluation of fall with low back pain and head injury. Patient is receiving chemotherapy for cancer. She has been with increased weakness over the past few days. She did have a fall 2 days ago needed lift assistance to get into her car. She had a second fall today. The patient was brushing her teeth in the bathroom this afternoon and felt herself feeling weak in the legs. She attempted to hold herself up with her arms, but lost her balance, and fell. She is primarily having pain in her low back, left hip, and back of her head. She is not on blood thinners. She rates her discomfort an 8/10. Home Medications Medication Instructions Recorded Confirmed Type buspirone 15 mg tablet 15 mg PO BID 06/04/23 06/04/23 History ferrous sulfate 325 mg (65 mg 325 mg PO DAILY 06/04/23 06/04/23 History iron) tablet folic acid 1 mg tablet 1 mg PO DAILY 06/04/23 06/04/23 History lisinopril 40 mg tablet 40 mg PO DAILY 06/04/23 06/04/23 History metoprolol tartrate 50 mg tablet 50 mg PO BID 06/04/23 06/04/23 History pantoprazole 40 mg tablet,delayed 40 mg PO DAILY 06/04/23 06/04/23 History release sertraline 100 mg tablet 100 mg PO DAILY 06/04/23 06/04/23 History thiamine HCl (vitamin B1) 100 mg 100 mg PO DAILY 06/04/23 06/04/23 History tablet Allergies Allergy/AdvReac Type Severity Reaction Status Date / Time No Known Allergies Allergy Verified 04/07/23 11:45 Past Med/Surg History Medical History Alcohol abuse Anxiety Bipolar affect, depressed Depression Essential hypertension Feeling suicidal Fracture of lumbar spine History of peptic ulcer Rectal cancer Seizure Surgical History H/O colonoscopy H/O esophagogastroduodenoscopy S/P D&C (status post dilation and curettage) Family History Family/Other Cancer brain and lung from separate female cousins Social History Smoking Status: Former smoker Tobacco Type: Cigarettes Second Hand Exposure: No; Do You Dip or Chew Tobacco: No; Tobacco Cessation Education Requested by Patient: No Hx Alcohol Use: Yes Alcohol type: beer Alcohol Intake Frequency: 4 or More x per/Week Alcohol Intake Frequency Comment: 6-9 16oz beer/day Hx Substance Use: No Preferred Language: Portuguese Communication Ability: Effective Visual Impairment: No Limitations Hearing Ability: Normal Hematology Nurse Educator Required: No Beliefs That Will Affect Care: None Current Living Situation: Spouse Current Living Situation Comment: Home current occupational status: unemployed Other Information That Helps Us Care for You: No Feels Safe at Home: Yes Safety Concerns: Feels Safe At This Time during the past year weight has: remained stable Assistive Devices: Walker and Wheelchair Review of Systems A total of 10 systems reviewed and were otherwise negative Physical Exam Vital Signs Vital Signs - 24 hr 06/03/23 14:00 Temperature 36.9 C Temperature Source Temporal Artery Scan Pulse Rate 89 Respiratory Rate 18 Blood Pressure 132/91 Blood Pressure Mean 104 Pulse Oximetry 98 Sepsis Recent Fever Within 48 Hours No Sepsis New/Unexplained Change in Mental Status N/A Sepsis Action Taken by Nursing No Action Required VITALS: Vitals are noted on the nurse's note and reviewed by myself. Vital signs stable. GENERAL: Well-developed, well-nourished, white female, who is pleasant but moderately uncomfortable with movement. HEAD: Normocephalic atraumatic. HEART: Regular rate and rhythm without murmurs gallops or rubs. LUNGS: Clear to auscultation bilaterally without wheezes, rales or rhonchi. No retractions or accessory muscle use. ABDOMEN: Positive normal bowel sounds x 4. Soft, nontender, without masses or organomegaly. No guarding or rebound tenderness. MUSCULOSKELETAL: No muscle atrophy, erythema, or edema noted. Full range of motion in all extremities. Mild tenderness noted throughout the lower lumbar spine and pelvis. No rotation or shortening of legs. Neurovascular status appears intact throughout. NEURO: Patient was alert and oriented to person place and time. CN II through XII grossly intact. Course Administered Medications Buspirone HCl (Buspirone 15 Mg Tab) 15 mg PO BID [facility] Stop: 07/04/23 08:59 Last Admin: 06/04/23 10:12 Dose: 15 mg Documented By: YARELIS Cyanocobalamin (Cyanocobalamin (B-12) 500 Mcg Tablet) 500 mcg PO QAM [facility] Stop: 07/04/23 15:29 Last Admin: 06/04/23 18:01 Dose: 500 mcg Documented By: YARELIS Ferrous Sulfate (Ferrous Sulfate 325 Mg Tab) 325 mg PO DAILY TAJ Stop: 07/04/23 09:14 Last Admin: 06/04/23 10:12 Dose: 325 mg Documented By: YARELIS Hydromorphone HCl (Hydromorphone Inj 0.5 Mg/0.5 Ml Syr) 0.25 mg IV Q3H PRN PRN Reason: Pain Stop: 06/17/23 22:30 Last Admin: 06/04/23 11:01 Dose: 0.25 mg Documented By: YARELIS Potassium Chloride/Sodium Chloride (Normal Saline W/20 Meq Kcl) 20 meq in 1,000 mls @ 100 mls/hr IV .Q10H [facility] Last Infusion: 06/04/23 15:23 Dose: 0 mls/hr Documented By: Admin: 06/04/23 11:44 Dose: 100 mls/hr Documented By: Infusion: 06/04/23 11:44 Dose: 100 mls/hr Documented By: Admin: 06/04/23 02:50 Dose: 100 mls/hr Documented By: Thiamine HCl 100 mg/ Syringe 10 mls @ 2 mls/[facility] Stop: 07/04/23 08:59 Last Admin: 06/04/23 09:45 Dose: 2 mls/min Documented By: YARELIS Folic Acid 1 mg/ Syringe 10 mls @ 5 mls/min IV QAM [facility] Stop: 07/04/23 08:59 Last Admin: 06/04/23 09:45 Dose: 5 mls/min Documented By: YARELIS Ceftriaxone Sodium 2,000 mg/ (Dextrose) 50 mls @ 100 mls/hr IV Q24H TAJ; Protocol Stop: 06/14/23 08:59 Last Infusion: 06/04/23 11:44 Dose: 0 mls/hr Documented By: Admin: 06/04/23 11:08 Dose: 100 mls/hr Documented By: YARELIS Sodium Chloride (Nss) 1,000 mls @ 125 mls/hr IV .Q8H TAJ Stop: 07/04/23 08:59 Last Infusion: 06/04/23 15:23 Dose: 0 mls/hr Documented By: Admin: 06/04/23 10:27 Dose: 125 mls/hr Documented By: YARELIS Lisinopril (Lisinopril 40 Mg Tab) 40 mg PO DAILY TAJ Stop: 07/04/23 08:59 Last Admin: 06/04/23 10:13 Dose: Not Given Documented By: YARELIS Metoprolol Tartrate (Metoprolol Tartrate 50 Mg Tab) 50 mg PO BID TAJ Stop: 07/04/23 08:59 Last Admin: 06/04/23 10:12 Dose: 50 mg Documented By: YARELIS Pantoprazole Sodium (Pantoprazole 40 Mg Tab) 40 mg PO DAILY TAJ Stop: 07/04/23 08:59 Last Admin: 06/04/23 10:12 Dose: 40 mg Documented By: YARELIS Sertraline HCl (Sertraline Hcl 100 Mg Tablet) 100 mg PO DAILY TAJ Stop: 07/04/23 08:59 Last Admin: 06/04/23 10:13 Dose: 100 mg Documented By: YARELIS Discontinued Medications Gabapentin (Gabapentin 600 Mg Tab) 600 mg PO Q6H TAJ Stop: 06/04/23 12:01 Last Admin: 06/04/23 12:34 Dose: 600 mg Documented By: Admin: 06/04/23 06:22 Dose: 600 mg Documented By: JENY Gabapentin (Gabapentin 600 Mg Tab) 1,200 mg PO NOW ONE Stop: 06/03/23 22:32 Last Admin: 06/03/23 23:30 Dose: 1,200 mg Documented By: JENY Heparin Sodium (Porcine) (Heparin 100 Unit/Ml 5ml Flush) Confirm Administered Dose 5 ml .ROUTE .STK-MED ONE Stop: 06/03/23 21:13 Last Admin: 06/03/23 21:16 Dose: 5 ml Documented By: ALFREDO Magnesium Sulfate/Dextrose (Magnesium Sulfate / D5w) 1 gm in 100 mls @ 100 mls/hr IV NOW STA Stop: 06/03/23 20:21 Last Infusion: 06/03/23 23:34 Dose: 0 mls/hr Documented By: Admin: 06/03/23 20:24 Dose: 100 mls/hr Documented By: ALFREDO Sodium Chloride (Nss) 500 mls @ 999 mls/hr IV .Q31M ONE Stop: 06/03/23 19:51 Last Infusion: 06/03/23 21:10 Dose: 0 mls/hr Documented By: Admin: 06/03/23 20:24 Dose: 999 mls/hr Documented By: ALFREDO Multivitamins 10 ml/ Thiamine HCl 100 mg/ Folic Acid 1 mg/Sodium Chloride 1,011.2 mls @ 500 mls/hr IV .Q2H2M ONE Stop: 06/04/23 00:32 Last Infusion: 06/04/23 02:46 Dose: 0 mls/hr Documented By: Admin: 06/03/23 23:32 Dose: 500 mls/hr Documented By: JENY Magnesium Sulfate/Dextrose (Magnesium Sulfate / D5w) 1 gm in 100 mls @ 50 mls/hr IV ONE ONE Stop: 06/04/23 00:30 Last Infusion: 06/04/23 02:46 Dose: 0 mls/hr Documented By: Admin: 06/03/23 23:32 Dose: 50 mls/hr Documented By: JENY Morphine Sulfate (Morphine Sulfate 4 Mg/Ml 1 Ml Carp\Vial) 4 mg IV NOW STA Stop: 06/03/23 19:22 Last Admin: 06/03/23 19:57 Dose: 4 mg Documented By: ALFREDO Ondansetron HCl (Ondansetron Inj 2 Mg/Ml 2 Ml Vial) 4 mg IV NOW STA Stop: 06/03/23 19:22 Last Admin: 06/03/23 19:57 Dose: 4 mg Documented By: ALFREDO Potassium Chloride (Potassium Chloride Crtab 20 Meq Tabcr) 40 meq PO NOW STA Stop: 06/03/23 20:43 Last Admin: 06/03/23 21:16 Dose: 40 meq Documented By: ALFREDO Medical Decision Making Differential Diagnosis Differential diagnosis: Etiologies such as benign positional vertigo, labrynthitis, dehydration, hypovolemia, anemia, tumor, infection, hypoglycemia, electrolyte abnormalities, cardiac sources, toxicological sources, central neurologic process, as well as others were entertained. Laboratory Data 06/03/23 14:29 06/03/23 14:29 Lab Results 06/03/23 06/03/23 06/03/23 Range/Units 14:29 14:29 14:29 WBC 3.92 L (4.8-10.8) K/ul RBC 3.00 L (4.20-5.40) M/uL Hgb 9.9 L (12.0-16.0) g/dl Hct 29.2 L (37.0-47.0) % MCV 97.3 (80.0-100.0) fL MCH 33.0 (25.0-34.0) pg MCHC 33.9 (32.0-36.0) g/dL RDW Std Deviation 51.0 H (36.4-46.3) fL RDW Coeff of Kendall 14.2 (11.5-14.5) % Plt Count 147 (130-400) K/uL MPV 9.3 L (9.4-12.4) fL Immature Gran % (Auto) 0.8 % Neut % (Auto) 91.7 % Lymph % (Auto) 4.6 % [place] % (Auto) 2.3 % Eos % (Auto) 0.3 % Baso % (Auto) 0.3 % Neut # (Auto) 3.60 (1.40-6.50) K/uL Lymph # (Auto) 0.18 L (1.20-3.40) K/uL [place] # (Auto) 0.09 L (0.11-0.59) K/uL Eos # (Auto) 0.01 (0.00-0.50) K/uL Baso # (Auto) 0.01 (0.00-0.20) K/uL Immature Gran # (Auto) 0.03 (0.01-0.20) K/uL PT 11.5 (9.0-12.0) Seconds INR 1.1 (0.9-1.1) APTT 26.5 (21.0-31.0) Seconds PTT Ratio 0.9 Sodium 128 L (136-145) mmol/L Potassium 3.0 L (3.5-5.1) mmol/L Chloride 90 L (98-107) mmol/L Carbon Dioxide 29 (21-32) mmol/L Anion Gap 9 (3-11) BUN 9 (6-23) mg/dl Creatinine 0.60 (0.6-1.2) mg/dl Est Cr Clr Drug Dosing Not Reportable Est GFR ( Amer) 114.8 ml/min Est GFR (Non-Af Amer) 99.1 ml/min BUN/Creatinine Ratio 15.0 (10-20) Glucose 119 H (70-99(Fasting)) mg/dl Calcium 9.0 (8.6-10.3) mg/dl Magnesium 1.2 L (1.7-2.4) mg/dl Total Bilirubin 0.9 (0.2-1.0) mg/dl AST 94 H (13-39) U/L ALT 33 (7-52) U/L Alkaline Phosphatase 116 H (34-104) U/L Total Creatine Kinase 677 H (26-192) U/L Troponin I High Sens 9.1 (0-14) pg/ml Total Protein 6.8 (6.0-8.3) gm/dl Albumin 3.8 (3.4-5.0) gm/dl Globulin 3.0 (2.5-4.0) gm/dl Albumin/Globulin Ratio 1.3 (0.9-2) TSH 2.221 (0.300-4.500) uIu/ml Imaging Data Radiologist's Impression: Chest X-Ray 06/03/23 14:07 XR chest 1V not portable HISTORY: 58 years-old Female Weakness acute weakness COMPARISON: PET CT 01/26/2023 TECHNIQUE: AP view of the chest FINDINGS: Cardiac silhouette is enlarged. Right IJ [id number] catheter. No pneumothorax, pleural effusion, airspace consolidation or pulmonary edema. Sigmoid thoracolumbar scoliosis. Healed chronic right-sided rib fractures. Bones appear grossly intact. IMPRESSION: Cardiomegaly without acute process. ACT 112: Negative or not required by law. The above report was generated using voice recognition software. It may contain grammatical, syntax or spelling errors. Electronically signed by: Calderon Sky M.D. 06/03/2023 3:[address] 06/03/23 18:09 CT SCAN OF THE CERVICAL SPINE CLINICAL HISTORY: Fall. COMPARISON STUDY: CT of the cervical spine dated 10/22/2013. TECHNIQUE: CT scan of the cervical spine is performed from the skull base to the upper thoracic spine. Images are reviewed in the axial, sagittal, and coronal planes. IV contrast was not administered for this examination. A dose lowering technique was utilized adhering to the principles of ALARA. FINDINGS: Skeletal structures: The skeletal structures are well mineralized. There is no evidence of fracture or subluxation involving the cervical spine. Vertebral body height and alignment are maintained. There is straightening of the cervical lordosis. Small anterior osteophytes are seen throughout. The odontoid process and lateral masses are intact. The atlantoaxial articulation is preserved noting productive degenerative change. The spinous processes appear intact. There is mild multilevel facet arthropathy. Intervertebral discs: There is mild/moderate disc space narrowing at C5-C6 and C6-C7. Central canal: Posterior disc osteophyte complexes at C4-C5, C5-C6, and C6-C7 may contribute to acquired compromise of the central canal. Soft tissues: The prevertebral and paraspinous soft tissues are within normal limits. A central venous infusion port catheter is partially visualized at the right thoracic inlet. Calvarium: The visualized calvarium at the skull base appears intact. Brain parenchyma: Partially visualized brain parenchyma at the skull base is within normal limits. Sinuses and mastoids: The visualized paranasal sinuses are clear. The mastoid air cells are well pneumatized. Cerumen is noted in the external auditory canals. Lung apices: Clear as visualized. IMPRESSION: 1. There is no evidence of cervical spine fracture or subluxation. 2. Spondylotic change as above. ACT 112: Negative or not required by law. Electronically signed by: Adam Guadarrama M.D. 06/03/2023 6:[address] 06/03/23 18:09 CT SCAN OF THE BRAIN WITHOUT IV CONTRAST CLINICAL HISTORY: Fall. COMPARISON STUDY: CT of the brain dated 12/26/2022. TECHNIQUE: Unenhanced axial CT scan of the brain is performed from the vertex to the skull base. A dose lowering technique was utilized adhering to the principles of ALARA. CT DOSE: 1035.89 mGy.cm FINDINGS: Brain parenchyma: There is age-related involutional change noting minimal microangiopathic disease. There is no hemorrhage, mass effect, or evidence of acute territorial ischemia by CT criteria. Yeh-white matter differentiation is preserved. No extra-axial fluid collection is seen. Ventricles, sulci, cisterns: Prominent secondary to involutional change. Intracranial vasculature: There is mild atherosclerotic calcification of the cav ernous carotid arteries. Calvarium: There is no depressed calvarial fracture. Sinuses and mastoids: The visualized paranasal sinuses are clear. The mastoid air cells are well pneumatized. Orbits: The bony orbits are grossly intact. IMPRESSION: There is no hemorrhage, mass effect, or evidence of acute territorial ischemia by CT criteria. ACT 112: Negative or not required by law. Electronically signed by: Adam Guadarrama M.D. 06/03/2023 6:[address] 06/03/23 19:21 CT SCAN OF THE LUMBAR SPINE WITHOUT IV CONTRAST CLINICAL HISTORY: Fall. Low back pain. COMPARISON STUDY: CT scan of the lumbar spine dated 10/22/2013. Abdominal CT dated 12/27/2022. TECHNIQUE: CT scan of the lumbar spine is performed from the lower thoracic spine to the sacrum. Images are reviewed in the axial, sagittal, and coronal planes. IV contrast was not administered for this examination. A dose lowering technique was utilized adhering to the principles of ALARA. CT DOSE: 1027.1 mGy.cm FINDINGS: The skeletal structures are osteopenic. There is no evidence of acute fracture or malalignment involving the lumbar spine. There is a mild acute superior endplate compression fracture of T12 which is new from 12/27/2022. There is no evidence of posterior element involvement or significantly retropulsed fragments. Mild paravertebral edema is seen at this level. Vertebral body height and alignment are maintained throughout the lumbar spine. There is moderate lumbar levocurvature centered at L3. Large anterior and lateral marginal osteophytes are seen throughout. The transverse and spinous processes are intact. There is no spondylolysis. No lytic or blastic lesion is seen. There is moderate disc space narrowing with endplate sclerosis noted at L3-L4. Mild disc space narrowing is seen at the remaining lumbar levels. Posterior disc osteophyte complexes are seen at most lumbar levels. There is no CT evidence of high-grade central canal stenosis. Right lateral disc bulges at L3-L4 and L4-L5 contribute subarticular stenosis and Main impingement on the exiting right L3 and L4 nerve roots. Facet arthropathy is noted in the lower lumbar region. There is chronic posttraumatic deformity of the sacrum. There is fatty atrophy of the paraspinous musculature. There is moderate atherosclerotic calcification of the abdominal aorta which is normal in course and caliber. No retroperitoneal lympha denopathy is seen. IMPRESSION: 1. There is no evidence of acute fracture or malalignment involving the lumbar spine. 2. There is a mild acute superior endplate compression fracture of T12 as above. No significant retropulsion of fragments is seen. 3. Osteopenia with lumbosacral spondylosis and scoliosis as above. ACT 112: Negative or not required by law. Electronically signed by: Adam Guadarrama M.D. 06/03/2023 10:[address] 06/03/23 19:23 CT SCAN OF THE PELVIS WITHOUT IV CONTRAST CLINICAL HISTORY: Fall. Left hip pain. COMPARISON STUDY: Pelvic CT dated 01/08/2023. TECHNIQUE: CT scan of the pelvis is performed from the pelvic inlet to the proximal femora. Images are reviewed in the axial, sagittal, and coronal planes. IV contrast was not administered for this examination. A dose lowering technique was utilized adhering to the principles of ALARA. FINDINGS: The skeletal structures are osteopenic. No acute fracture is seen involving the hips or bony pelvis. There is chronic posttraumatic deformity of the sacrum. Arthritic change is seen in the hips and sacroiliac joints. There is no evidence of avascular necrosis of the femoral heads. No lytic or blastic l esion is seen. Lumbosacral spondylosis and scoliosis is partially imaged. There is generalized atrophy of the regional musculature. The bladder wall is thickened and there is surrounding inflammation. The uterus and adnexa are normal as visualized. Presacral soft tissue induration has modestly increased from previous. Imaged portions of the bowel shows no evidence of obstruction. No intraperitoneal free air or abdominal ascites is seen in the pelvis. There is no pelvic sidewall or inguinal lymphadenopathy. IMPRESSION: 1. There is no evidence of acute fracture involving the hips or bony pelvis. 2. There is chronic posttraumatic deformity of the sacrum. 3. Findings suggest cystitis. Correlate with clinical findings and urinalysis. ACT 112: Negative or not required by law. Electronically signed by: Adam Guadarrama M.D. 06/03/2023 10:44 PM ECG Data Attestation: I personally reviewed and interpreted this ECG as follows: Indication: + weakness Additional Comments: Normal sinus rhythm @[address] elevation Normal ECG When compared with ECG of 25-DEC-2022 06:21, QRS duration has decreased MDM Narrative Physical exam and history were performed. Nursing notes, EMR, and Medication List were personally reviewed. No social concerns were identified as barriers to patients care. Patient appears to have weakness over the past few days. She is a chemotherapy patient. She has had 2 falls in the last 3 days. Patient was seen during a period of very high ER volume and acuity with extended wait times. Nursing protocol order have been performed and some of these are available for my review at the time of patient encounter. Patient's blood work is as above and was reviewed. She does not have a significantly elevated white blood cell count, gross anemia, or significant electrolyte imbalance. Magnesium is concerning only low at 1.2. Protocol CT scan of the head and neck were reviewed by myself and radiology showing no acute process. On physical exam the patient continues to have some low back pain as well as complaining of some pain in her left hip. I did discuss the case with the on- call hospitalist team, as regardless the patient is unable to go home. CT scan of the back and pelvis was performed. Results will be followed by the hospitalist team. Please see their dictation for further patient course, plan, and disposition. The chart was completed utilizing [employer] Speech Voice Recognition Software. Grammatical errors, random word insertions, pronoun errors, and incomplete sentences are an occasional consequence of this system due to software limitations, ambient noise, and hardware issues. Any formal questions or concerns about the content, text, or information contained within the body of this dictation should be directly addressed to the provider for clarification. . Impression & Plan Fall, Hypomagnesemia, Weakness Discharge Plan Visit Data Chief Complaint: Fall Stated Complaint: FALL, BACK PAIN ED Provider: Ronald Restrepo ED Midlevel Provider: Lamberto Avila Discharge Problem: Fall, Hypomagnesemia, Weakness Patient Disposition: Admitted As Inpatient Discharge Instructions Interventions: ED Discharge Assessment Last Done: 06/03/23 21:26 ED AMA/LWBS Discharge Assessment Last Done: 06/03/23 15:16
[2023-06-03 19:59] LABS: Creatine Kinase 677 U/L (26-192)
[2023-06-03] MEDS ORDERED: POTASSIUM CHLORIDE CRTAB 20 MEQ TABCR PO STA (20:42)
[2023-06-03] MEDS ORDERED: HEPARIN 100 UNIT/ML 5ML FLUSH ONE (21:12)
[2023-06-03] MEDS ORDERED: GABAPENTIN 1200MG ALCOHOL WITHDRAWAL LOAD PO STA (22:31)
[2023-06-03] MEDS ORDERED: ACETAMINOPHEN 325 MG TAB PO PRN (22:31)
[2023-06-03] MEDS ORDERED: LORazepam 2 MG/1 ML VIAL IV PRN ×3 (22:31)
[2023-06-03] MEDS ORDERED: Ativan IV Alcohol Withdrawal--Active Protocol IV PRN (22:31)
[2023-06-03] MEDS ORDERED: NITROGLYCERIN SL 0.4 MG/TAB TAB SL PRN (22:31)
[2023-06-03] MEDS ORDERED: ONDANSETRON INJ 2 MG/ML 2 ML VIAL IV PRN (22:31)
[2023-06-03] MEDS ORDERED: MAGNESIUM SULFATE / D5W 1 GM/100 ML BAG IV ONE (22:31)
[2023-06-03] MEDS ORDERED: GABAPENTIN 600 MG TAB PO ONE (22:31)
[2023-06-03] MEDS ORDERED: MULTI-VITAMIN INFUSION 10 ML, THIAMINE HCL 100 MG, FOLIC ACID 1 MG in SODIUM CHLORIDE 0... IV ONE (22:31)
--- NOTE | 2023-06-03 22:47 | CT Scan Report ---
CT SCAN OF THE PELVIS WITHOUT IV CONTRAST CLINICAL HISTORY: Fall. Left hip pain. COMPARISON STUDY: Pelvic CT dated 01/08/2023. TECHNIQUE: CT scan of the pelvis is performed from the pelvic inlet to the proximal femora. Images a re reviewed in the axial, sagittal, and coronal planes. IV contrast was not administered for this exa mination. A dose lowering technique was utilized adhering to the principles of ALARA. FINDINGS: The skeletal structures are osteopenic. No acute fracture is seen involving the hips or bon y pelvis. There is chronic posttraumatic deformity of the sacrum. Arthritic change is seen in the hip s and sacroiliac joints. There is no evidence of avascular necrosis of the femoral heads. No lytic or blastic lesion is seen. Lumbosacral spondylosis and scoliosis is partially imaged. There is generali zed atrophy of the regional musculature. The bladder wall is thickened and there is surrounding infla mmation. The uterus and adnexa are normal as visualized. Presacral soft tissue induration has modestl y increased from previous. Imaged portions of the bowel shows no evidence of obstruction. No intraper itoneal free air or abdominal ascites is seen in the pelvis. There is no pelvic sidewall or inguinal lymphadenopathy. IMPRESSION: 1. There is no evidence of acute fracture involving the hips or bony pelvis. 2. There is chronic posttraumatic deformity of the sacrum. 3. Findings suggest cystitis. Correlate with clinical findings and urinalysis. ACT 112: Negative or not required by law. Electronically signed by: Adam Guadarrama M.D. 06/03/2023 10:44 PM
--- NOTE | 2023-06-03 22:52 | CT Scan Report ---
CT SCAN OF THE LUMBAR SPINE WITHOUT IV CONTRAST CLINICAL HISTORY: Fall. Low back pain. COMPARISON STUDY: CT scan of the lumbar spine dated 10/22/2013. Abdominal CT dated 12/27/2022. TECHNIQUE: CT scan of the lumbar spine is performed from the lower thoracic spine to the sacrum. Gely ges are reviewed in the axial, sagittal, and coronal planes. IV contrast was not administered for thi s examination. A dose lowering technique was utilized adhering to the principles of ALARA. CT DOSE: 1027.1 mGy.cm FINDINGS: The skeletal structures are osteopenic. There is no evidence of acute fracture or malalignm ent involving the lumbar spine. There is a mild acute superior endplate compression fracture of T12 w hich is new from 12/27/2022. There is no evidence of posterior element involvement or significantly ret ropulsed fragments. Mild paravertebral edema is seen at this level. Vertebral body height and alignme nt are maintained throughout the lumbar spine. There is moderate lumbar levocurvature centered at L3. Large anterior and lateral marginal osteophytes are seen throughout. The transverse and spinous proc esses are intact. There is no spondylolysis. No lytic or blastic lesion is seen. There is moderate di sc space narrowing with endplate sclerosis noted at L3-L4. Mild disc space narrowing is seen at the r emaining lumbar levels. Posterior disc osteophyte complexes are seen at most lumbar levels. There is no CT evidence of high-grade central canal stenosis. Right lateral disc bulges at L3-L4 and L4-L5 con tribute subarticular stenosis and Main impingement on the exiting right L3 and L4 nerve roots. Facet arthropathy is noted in the lower lumbar region. There is chronic posttraumatic deformity of the sacr um. There is fatty atrophy of the paraspinous musculature. There is moderate atherosclerotic calcific ation of the abdominal aorta which is normal in course and caliber. No retroperitoneal lymphadenopath y is seen. IMPRESSION: 1. There is no evidence of acute fracture or malalignment involving the lumbar spine. 2. There is a mild acute superior endplate compression fracture of T12 as above. No significant retro pulsion of fragments is seen. 3. Osteopenia with lumbosacral spondylosis and scoliosis as above. ACT 112: Negative or not required by law. Electronically signed by: Adam Guadarrama M.D. 06/03/2023 10:50 PM
[2023-06-04 01:20] LABS: Appearance Urine Cloudy (Clear); Bacteria Urine Automated Negative (Negative); Bilirubin Urine Negative (Negative); Blood Urine Trace (Negative); Color Urine Yellow; Glucose Urine UA Negative (Negative); Ketones Urine Trace (Negative); Leukocyte Esterase Urine 3+ (Negative); Nitrite Urine Negative (Negative); Protein Urine Negative (Negative); RBC Urine Automated 0-4 /hpf (0-4); Specific Gravity Urine 1.012 (1.000-1.030); Urobilinogen Urine Negative (Negative); WBC Urine Automated >30 /hpf (0-5); pH Urine 6.5 (4.5-7.5)
[2023-06-04] MEDS: NSS + 20MEQ KCL 20 MEQ/1,000 ML BAG IV SCH ×2 (02:50→11:44)
[2023-06-04 06:14] LABS: Albumin Level 2.8 gm/dl (3.4-5.0); BUN Creatinine Ratio 15.7 (10-20); Bilirubin Direct 0.2 mg/dl (0-0.2); Bilirubin,Total 0.7 mg/dl (0.2-1.0); Calcium 7.9 mg/dl (8.6-10.3); Creatinine Clr Calc Pharmacy 88.5 ml/min; Est GFR (African American) 121.1 ml/min; Est GFR (Non-African American) 104.5 ml/min; Magnesium 1.8 mg/dl (1.7-2.4); Phosphorus 2.6 mg/dl (2.5-4.9); Potassium 3.4 mmol/L (3.5-5.1)
[2023-06-04] MEDS: GABAPENTIN 600 MG TAB PO SCH ×3 (06:22→20:38)
[2023-06-04 06:24] LABS: Eosinophils # (auto) 0.01 K/uL (0.00-0.50); Eosinophils % (auto) 0.5 %; Hematocrit (blood only) 22.3 % (37.0-47.0); Hemoglobin 7.5 g/dl (12.0-16.0); Immature Granulocytes # (auto) 0.02 K/uL (0.01-0.20); Immature Granulocytes % (auto) 1.1 %; Lymphocytes # (auto) 0.18 K/uL (1.20-3.40); Lymphocytes % (auto) 9.8 %; Mean Corpuscular Hemoglobin 33.6 pg (25.0-34.0); Mean Corpuscular Hgb Conc 33.6 g/dL (32.0-36.0); Mean Platelet Volume 9.3 fL (9.4-12.4); Monocytes # (auto) 0.06 K/uL (0.11-0.59); Monocytes % (auto) 3.3 %; Neutrophils # (auto) 1.56 K/uL (1.40-6.50); Neutrophils % (auto) 85.3 %; Platelet Count 93 K/uL (130-400); Platelet Estimate Decreased (Normal); RBC Morphology Unremarkable; RDW Coefficient of Variation 14.2 % (11.5-14.5); RDW Standard Deviation 52.1 fL (36.4-46.3); Red Blood Count 2.23 M/uL (4.20-5.40); White Blood Count 1.83 K/ul (4.8-10.8)
--- NOTE | 2023-06-04 08:29 | History & Physical Report ---
Date of Service May Assessment & Plan (1) Fall: Plan: 58-year-old female past medical significant for hypomagnesemia, hypokalemia, hypertension, heart rate deficiency anemia, general anxiety disorder, ongoing alcoholism, rectal cancer currently undergoing chemo presents with falls. Falls. Alcoholism. Electrolyte abnormalities. Ongoing chemo for rectal cancer UTI PT OT Hypomagnesemia and hypokalemia Replace Follow labs Hyponatremia Sodium 128 IV fluids Follow labs UTI Rocephin We will follow cultures Rectal cancer On chemo Follows with heme-onc Hypertension Stable metoprolol we will monitor Generalized anxiety disorder Zoloft and buspirone Alcoholism alcohol withdrawal protocol with gabapentin and Ativan as needed Thiamine and folic acid Iron deficiency anemia we will follow the labs Pancytopenia Mostly from chemo and ongoing alcoholism We will follow the labs DVT prophylaxis SCDs for now Disposition med/telemetry Full code Admission and Anticipated Discharge Date Admission Date: June 03, 2023 History of Present Illness Chief Complaint: Falls Primary Care Provider: Shelli Ritter MD 58-year-old female past medical significant for hypomagnesemia, hypokalemia, hypertension, heart rate deficiency anemia, general anxiety disorder, ongoing alcoholism, rectal cancer currently undergoing chemo presents with falls. Patient states last Tuesday when she after chemo on the driveway she fell down and she need to be helped. Today also at home again she fell backwards hit her head but no loss of consciousness. She feels weak in the legs and goes down. No headache. No dizziness. No blurred visions. No nausea. No cough. No fevers. No chest pain or shortness of breath. No abdominal pain. Normal bowel and bladder movements. Past medical history. As mentioned above Past surgical history. Insertion of central venous catheter. Social history. . Quit smoking 08/2009. Smoked 1 pack a day for 25 years. Alcohol drinking 6-8 beers daily. Currently no drug use. Family history. Mother had diabetes. Brother hypertension. Father hypertension and dialysis Allergies Allergy/AdvReac Type Severity Reaction Status Date / Time No Known Allergies Allergy Verified 04/07/23 11:45 Home Medications Medication Instructions Recorded Confirmed Type buspirone 15 mg tablet 15 mg PO BID 06/04/23 06/04/23 History ferrous sulfate 325 mg (65 mg 325 mg PO DAILY 06/04/23 06/04/23 History iron) tablet folic acid 1 mg tablet 1 mg PO DAILY 06/04/23 06/04/23 History lisinopril 40 mg tablet 40 mg PO DAILY 06/04/23 06/04/23 History metoprolol tartrate 50 mg tablet 50 mg PO BID 06/04/23 06/04/23 History pantoprazole 40 mg tablet,delayed 40 mg PO DAILY 06/04/23 06/04/23 History release sertraline 100 mg tablet 100 mg PO DAILY 06/04/23 06/04/23 History thiamine HCl (vitamin B1) 100 mg 100 mg PO DAILY 06/04/23 06/04/23 History tablet Past Med/Surg History Medical History Alcohol abuse Anxiety Bipolar affect, depressed Depression Essential hypertension Feeling suicidal Fracture of lumbar spine History of peptic ulcer Rectal cancer Seizure Surgical History H/O colonoscopy H/O esophagogastroduodenoscopy S/P D&C (status post dilation and curettage) Family History Family/Other Cancer brain and lung from separate female cousins Social History Smoking Status: Former smoker Tobacco Type: Cigarettes Second Hand Exposure: No; Do You Dip or Chew Tobacco: No; Tobacco Cessation Education Requested by Patient: No Hx Alcohol Use: Yes Alcohol type: beer Alcohol Intake Frequency: 4 or More x per/Week Alcohol Intake Frequency Comment: 6-9 16oz beer/day Hx Substance Use: No Preferred Language: Bulgarian Communication Ability: Effective Visual Impairment: No Limitations Hearing Ability: Normal Account Specialist Required: No Beliefs That Will Affect Care: None Current Living Situation: Spouse Current Living Situation Comment: Home current occupational status: unemployed Other Information That Helps Us Care for You: No Feels Safe at Home: Yes Safety Concerns: Feels Safe At This Time during the past year weight has: remained stable Assistive Devices: Glasses Review of Systems Review of Systems: All systems reviewed & are unremarkable except as noted in HPI & below Physical Exam Physical Exam: General- Not in distress Head- atraumatic Eyes- PERRL. ENT- oropharynx clear Neck- supple, no JVD. Lungs- clear to auscultation no wheezing or crackles. Heart- regular rhythm; no murmur, no gallop. Abdomen- normal bowel sounds, soft, nontender, no distension. Extremities- no pretibial edema, right upper extremity in cast Neuro- alert, oriented x 3; PERRL, no facial palsy; no dysarthria; non focal. Skin- warm & dry Results & Data Results & Data Vital Signs (Past 12 Hours) Vital Signs Temp Pulse Pulse Resp BP BP Pulse Ox 06/04/23 08:01 36.8 C 64 16 128/77 91 06/04/23 07:22 74 06/04/23 04:15 37.1 C 83 18 122/72 93 06/03/23 22:03 75 06/03/23 21:48 73 06/03/23 22:02 36.6 C 84 18 176/89 H 184/92 H 92 O2 Del Method 06/04/23 08:01 Room Air 06/04/23 07:22 06/04/23 04:15 Room Air 06/03/23 22:03 06/03/23 21:48 06/03/23 22:02 Room Air Diagnostic Findings Laboratory Results WBC 1.83 K/ul (4.8-10.8) L 06/04/23 05:26 RBC 2.23 M/uL (4.20-5.40) L 06/04/23 05:26 Hgb 7.5 g/dl (12.0-16.0) L 06/04/23 05:26 Hct 22.3 % (37.0-47.0) L 06/04/23 05:26 MCV 100.0 fL (80.0-100.0) 06/04/23 05:26 MCH 33.6 pg (25.0-34.0) 06/04/23 05:26 MCHC 33.6 g/dL (32.0-36.0) 06/04/23 05:26 RDW Std Deviation 52.1 fL (36.4-46.3) H 06/04/23 05:26 RDW Coeff of Kendall 14.2 % (11.5-14.5) 06/04/23 05:26 Plt Count 93 K/uL (130-400) L 06/04/23 05:26 MPV 9.3 fL (9.4-12.4) L 06/04/23 05:26 Immature Gran % (Auto) 1.1 % 06/04/23 05:26 Neut % (Auto) 85.3 % 06/04/23 05:26 Lymph % (Auto) 9.8 % 06/04/23 05:26 Andrew % (Auto) 3.3 % 06/04/23 05:26 Eos % (Auto) 0.5 % 06/04/23 05:26 Baso % (Auto) 0.0 % 06/04/23 05:26 Neut # (Auto) 1.56 K/uL (1.40-6.50) 06/04/23 05:26 Lymph # (Auto) 0.18 K/uL (1.20-3.40) L 06/04/23 05:26 Andrew # (Auto) 0.06 K/uL (0.11-0.59) L 06/04/23 05:26 Eos # (Auto) 0.01 K/uL (0.00-0.50) 06/04/23 05:26 Baso # (Auto) 0.00 K/uL (0.00-0.20) 06/04/23 05:26 Immature Gran # (Auto) 0.02 K/uL (0.01-0.20) 06/04/23 05:26 Platelet Estimate Decreased (Normal) L 06/04/23 05:26 RBC Morphology Unremarkable 06/04/23 05:26 PT 11.5 Seconds (9.0-12.0) 06/03/23 14:29 INR 1.1 (0.9-1.1) 06/03/23 14:29 APTT 26.5 Seconds (21.0-31.0) 06/03/23 14:29 PTT Ratio 0.9 06/03/23 14:29 Sodium 132 mmol/L (136-145) L 06/04/23 05:26 Potassium 3.4 mmol/L (3.5-5.1) L 06/04/23 05:26 Chloride 101 mmol/L (98-107) 06/04/23 05:26 Carbon Dioxide 26 mmol/L (21-32) 06/04/23 05:26 Anion Gap 5 (3-11) 06/04/23 05:26 BUN 8 mg/dl (6-23) 06/04/23 05:26 Creatinine 0.51 mg/dl (0.6-1.2) L 06/04/23 05:26 Est Cr Clr Drug Dosing 88.5 ml/min 06/04/23 05:26 Est GFR ( Amer) 121.1 ml/min 06/04/23 05:26 Est GFR (Non-Af Amer) 104.5 ml/min 06/04/23 05:26 BUN/Creatinine Ratio 15.7 (10-20) 06/04/23 05:26 Glucose 88 mg/dl (70-99(Fasting)) 06/04/23 05:26 Calcium 7.9 mg/dl (8.6-10.3) L 06/04/23 05:26 Phosphorus 2.6 mg/dl (2.5-4.9) 06/04/23 05:26 Magnesium 1.8 mg/dl (1.7-2.4) 06/04/23 05:26 Total Bilirubin 0.7 mg/dl (0.2-1.0) 06/04/23 05:26 Direct Bilirubin 0.2 mg/dl (0-0.2) 06/04/23 05:26 AST 75 U/L (13-39) H 06/04/23 05:26 ALT 22 U/L (7-52) 06/04/23 05:26 Alkaline Phosphatase 80 U/L (34-104) 06/04/23 05:26 Total Creatine Kinase 803 U/L (26-192) H 06/04/23 05:26 Troponin I High Sens 9.1 pg/ml (0-14) 06/03/23 14:29 Total Protein 5.0 gm/dl (6.0-8.3) L D 06/04/23 05:26 Albumin 2.8 gm/dl (3.4-5.0) L 06/04/23 05:26 Globulin 3.0 gm/dl (2.5-4.0) 06/03/23 14:29 Albumin/Globulin Ratio 1.3 (0.9-2) 06/03/23 14:29 Vitamin B12 402 pg/ml (180-914) 06/04/23 05:26 TSH 2.221 uIu/ml (0.300-4.500) 06/03/23 14:29 Urine Color Yellow 06/04/23 00:45 Urine Appearance Cloudy (Clear) A 06/04/23 00:45 Urine pH 6.5 (4.5-7.5) 06/04/23 00:45 Ur Specific Antimony 1.012 (1.000-1.030) 06/04/23 00:45 Urine Protein Negative (Negative) 06/04/23 00:45 Urine Glucose (UA) Negative (Negative) 06/04/23 00:45 Urine Ketones Trace (Negative) H 06/04/23 00:45 Urine Blood Trace (Negative) H 06/04/23 00:45 Urine Nitrite Negative (Negative) 06/04/23 00:45 Urine Bilirubin Negative (Negative) 06/04/23 00:45 Urine Urobilinogen Negative (Negative) 06/04/23 00:45 Ur Leukocyte Esterase 3+ (Negative) H 06/04/23 00:45 Urine WBC (Auto) >30 /hpf (0-5) H 06/04/23 00:45 Urine RBC (Auto) 0-4 /hpf (0-4) 06/04/23 00:45 U Hyaline Cast (Auto) 1-5 /lpf (0-5) 06/04/23 00:45 U Epithel Cells (Auto) 10-20 /lpf (0-5) H 06/04/23 00:45 Urine Bacteria (Auto) Negative (Negative) 06/04/23 00:45 Impressions Chest X-Ray 06/03/23 14:07 XR chest 1V not portable HISTORY: 58 years-old Female Weakness acute weakness COMPARISON: PET CT 01/26/2023 TECHNIQUE: AP view of the chest FINDINGS: Cardiac silhouette is enlarged. Right IJ [id number] catheter. No pneumothorax, pleural effusion, airspace consolidation or pulmonary edema. Sigmoid thoracolumbar scoliosis. Healed chronic right-sided rib fractures. Bones appear grossly intact. IMPRESSION: Cardiomegaly without acute process. ACT 112: Negative or not required by law. The above report was generated using voice recognition software. It may contain grammatical, syntax or spelling errors. Electronically signed by: Calderon Sky M.D. 06/03/2023 3:[address] 06/03/23 18:09 CT SCAN OF THE CERVICAL SPINE CLINICAL HISTORY: Fall. COMPARISON STUDY: CT of the cervical spine dated 10/22/2013. TECHNIQUE: CT scan of the cervical spine is performed from the skull base to the upper thoracic spine. Images are reviewed in the axial, sagittal, and coronal planes. IV contrast was not administered for this examination. A dose lowering technique was utilized adhering to the principles of ALARA. FINDINGS: Skeletal structures: The skeletal structures are well mineralized. There is no evidence of fracture or subluxation involving the cervical spine. Vertebral body height and alignment are maintained. There is straightening of the cervical lordosis. Small anterior osteophytes are seen throughout. The odontoid process and lateral masses are intact. The atlantoaxial articulation is preserved noting productive degenerative change. The spinous processes appear intact. There is mild multilevel facet arthropathy. Intervertebral discs: There is mild/moderate disc space narrowing at C5-C6 and C6-C7. Central canal: Posterior disc osteophyte complexes at C4-C5, C5-C6, and C6-C7 may contribute to acquired compromise of the central canal. Soft tissues: The prevertebral and paraspinous soft tissues are within normal limits. A central venous infusion port catheter is partially visualized at the right thoracic inlet. Calvarium: The visualized calvarium at the skull base appears intact. Brain parenchyma: Partially visualized brain parenchyma at the skull base is within normal limits. Sinuses and mastoids: The visualized paranasal sinuses are clear. The mastoid air cells are well pneumatized. Cerumen is noted in the external auditory canals. Lung apices: Clear as visualized. IMPRESSION: 1. There is no evidence of cervical spine fracture or subluxation. 2. Spondylotic change as above. ACT 112: Negative or not required by law. Electronically signed by: Adam Guadarrama M.D. 06/03/2023 6:[address] 06/03/23 18:09 CT SCAN OF THE BRAIN WITHOUT IV CONTRAST CLINICAL HISTORY: Fall. COMPARISON STUDY: CT of the brain dated 12/26/2022. TECHNIQUE: Unenhanced axial CT scan of the brain is performed from the vertex to the skull base. A dose lowering technique was utilized adhering to the principles of ALARA. CT DOSE: 1035.89 mGy.cm FINDINGS: Brain parenchyma: There is age-related involutional change noting minimal microangiopathic disease. There is no hemorrhage, mass effect, or evidence of acute territorial ischemia by CT criteria. Yeh-white matter differentiation is preserved. No extra-axial fluid collection is seen. Ventricles, sulci, cisterns: Prominent secondary to involutional change. Intracranial vasculature: There is mild atherosclerotic calcification of the cavernous carotid arteries. Calvarium: There is no depressed calvarial fracture. Sinuses and mastoids: The visualized paranasal sinuses are clear. The mastoid air cells are well pneumatized. Orbits: The bony orbits are grossly intact. IMPRESSION: There is no hemorrhage, mass effect, or evidence of acute territorial ischemia by CT criteria. ACT 112: Negative or not required by law. Electronically signed by: Adam Guadarrama M.D. 06/03/2023 6:[address] 06/03/23 19:21 CT SCAN OF THE LUMBAR SPINE WITHOUT IV CONTRAST CLINICAL HISTORY: Fall. Low back pain. COMPARISON STUDY: CT scan of the lumbar spine dated 10/22/2013. Abdominal CT dated 12/27/2022. TECHNIQUE: CT scan of the lumbar spine is performed from the lower thoracic spine to the sacrum. Images are reviewed in the axial, sagittal, and coronal planes. IV contrast was not administered for this examination. A dose lowering technique was utilized adhering to the principles of ALARA. CT DOSE: 1027.1 mGy.cm FINDINGS: The skeletal structures are osteopenic. There is no evidence of acute fracture or malalignment involving the lumbar spine. There is a mild acute superior endplate compression fracture of T12 which is new from 12/27/2022. There is no evidence of posterior element involvement or significantly retropulsed fragments. Mild paravertebral edema is seen at this level. Vertebral body height and alignment are maintained throughout the lumbar spine. There is moderate lumbar levocurvature centered at L3. Large anterior and lateral marginal osteophytes are seen throughout. The transverse and spinous processes are intact. There is no spondylolysis. No lytic or blastic lesion is seen. There is moderate disc space narrowing with endplate sclerosis noted at L3-L4. Mild disc space narrowing is seen at the remaining lumbar levels. Posterior disc osteophyte complexes are seen at most lumbar levels. There is no CT evidence of high-grade central canal stenosis. Right lateral disc bulges at L3-L4 and L4-L5 contribute subarticular stenosis and Main impingement on the exiting right L3 and L4 nerve roots. Facet arthropathy is noted in the lower lumbar region. There is chronic posttraumatic deformity of the sacrum. There is fatty atrophy of the paraspinous musculature. There is moderate atherosclerotic calcification of the abdominal aorta which is normal in course and caliber. No retroperitoneal lymphadenopathy is seen. IMPRESSION: 1. There is no evidence of acute fracture or malalignment involving the lumbar spine. 2. There is a mild acute superior endplate compression fracture of T12 as above. No significant retropulsion of fragments is seen. 3. Osteopenia with lumbosacral spondylosis and scoliosis as above. ACT 112: Negative or not required by law. Electronically signed by: Adam Guadarrama M.D. 06/03/2023 10:[address] 06/03/23 19:23 CT SCAN OF THE PELVIS WITHOUT IV CONTRAST CLINICAL HISTORY: Fall. Left hip pain. COMPARISON STUDY: Pelvic CT dated 01/08/2023. TECHNIQUE: CT scan of the pelvis is performed from the pelvic inlet to the proximal femora. Images are reviewed in the axial, sagittal, and coronal planes. IV contrast was not administered for this examination. A dose lowering technique was utilized adhering to the principles of ALARA. FINDINGS: The skeletal structures are osteopenic. No acute fracture is seen involving the hips or bony pelvis. There is chronic posttraumatic deformity of the sacrum. Arthritic change is seen in the hips and sacroiliac joints. There is no evidence of avascular necrosis of the femoral heads. No lytic or blastic lesion is seen. Lumbosacral spondylosis and scoliosis is partially imaged. There is generalized atrophy of the regional musculature. The bladder wall is thickened and there is surrounding inflammation. The uterus and adnexa are normal as visualized. Presacral soft tissue induration has modestly increased from previous. Imaged portions of the bowel shows no evidence of obstruction. No intraperitoneal free air or abdominal ascites is seen in the pelvis. There is no pelvic sidewall or inguinal lymphadenopathy. IMPRESSION: 1. There is no evidence of acute fracture involving the hips or bony pelvis. 2. There is chronic posttraumatic deformity of the sacrum. 3. Findings suggest cystitis. Correlate with clinical findings and urinalysis. ACT 112: Negative or not required by law. Electronically signed by: Adam Guadarrama M.D. 06/03/2023 10:44 PM ECG Additional Comments: ECG. Normal sinus rhythm with rate of 86. No acute ST changes seen. Code Status & VTE Plan VTE Prophylaxis Plan VTE Prophylaxis will be ordered: Yes
[2023-06-04] MEDS ORDERED: SODIUM CHLORIDE 0.9% 1,000 ML IV SCH (09:00)
--- NOTE | 2023-06-04 09:32 | Hospitalist Progress Note ---
Date of Service June 04, 2023 Assessment & Plan (1) Fall: Plan: Pt is a 58 yo female w/ hypomagnesemia, hypokalemia, hypertension, iron deficiency anemia, general anxiety disorder, ongoing alcoholism, rectal cancer currently undergoing chemo presents with falls. Falls. Alcoholism. Electrolyte abnormalities. Ongoing chemo for rectal cancer UTI PT OT Hypomagnesemia and hypokalemia Replace likely secondary to poor PO intake and alcohol use encouraged PO intake - using protein shakes Follow labs Hyponatremia Sodium 128 -> 132 IV fluids Follow labs UTI Rocephin We will follow cultures Rectal cancer On chemo Follows with heme-onc Hypertension Stable metoprolol we will monitor hold lisinopril for now Elevated CPK - received IVF, now requiring suppl. O2, will hold IVF - follow repeat CPK labs Generalized anxiety disorder Zoloft and buspirone Alcoholism alcohol withdrawal protocol with gabapentin and Ativan as needed Thiamine and folic acid Iron deficiency anemia we will follow the labs Pancytopenia Mostly from chemo and ongoing alcoholism We will follow the labs DVT prophylaxis SCDs for now Disposition med/telemetry Full code Admission and Anticipated Discharge Date Admission Date: June 03, 2023 Subjective Pt seen in follow up of falls, weakness/ on chemotherapy, with electrolyte abnormalities, alcohol use Sitting up in bed in NAD, at the bedside Says she does not eat much , drinks beer daily, says she has been drinking since she was 10. Says she feels full easily. Discussed trying protein shakes - ordered ensure. Pt interested in adding protein shakes to her diet to improve nutritional status. Review of Systems Review of Systems: All systems reviewed & are unremarkable except as noted in Subjective Physical Exam Physical Exam: General- Not in distress Head- atraumatic Eyes- PERRL. ENT- oropharynx clear Neck- supple, no JVD. Lungs- clear to auscultation no wheezing or crackles. Heart- regular rhythm; no murmur, no gallop. Abdomen- normal bowel sounds, soft, nontender, no distension. Extremities- no pretibial edema, right upper extremity in cast Neuro- alert, oriented x 3; PERRL, no facial palsy; no dysarthria; moves extremities Skin- warm & dry Results & Data Results & Data Vital Signs (Past 12 Hours) Vital Signs Temp Pulse Pulse Resp BP BP Pulse Ox 06/04/23 08:01 36.8 C 64 16 128/77 91 06/04/23 07:22 74 06/04/23 04:15 37.1 C 83 18 122/72 93 06/03/23 22:03 75 06/03/23 21:48 73 06/03/23 22:02 36.6 C 84 18 176/89 H 184/92 H 92 O2 Del Method 06/04/23 08:01 Room Air 06/04/23 07:22 06/04/23 04:15 Room Air 06/03/23 22:03 06/03/23 21:48 06/03/23 22:02 Room Air Laboratory Results 06/04/23 06/04/23 06/04/23 Range/Units 05:26 05:26 05:26 WBC 1.83 L (4.8-10.8) K/ul RBC 2.23 L (4.20-5.40) M/uL Hgb 7.5 L (12.0-16.0) g/dl Hct 22.3 L (37.0-47.0) % MCV 100.0 (80.0-100.0) fL MCH 33.6 (25.0-34.0) pg MCHC 33.6 (32.0-36.0) g/dL RDW Std Deviation 52.1 H (36.4-46.3) fL RDW Coeff of Kendall 14.2 (11.5-14.5) % Plt Count 93 L (130-400) K/uL MPV 9.3 L (9.4-12.4) fL Immature Gran % (Auto) 1.1 % Neut % (Auto) 85.3 % Lymph % (Auto) 9.8 % Patrick % (Auto) 3.3 % Eos % (Auto) 0.5 % Baso % (Auto) 0.0 % Neut # (Auto) 1.56 (1.40-6.50) K/uL Lymph # (Auto) 0.18 L (1.20-3.40) K/uL Patrick # (Auto) 0.06 L (0.11-0.59) K/uL Eos # (Auto) 0.01 (0.00-0.50) K/uL Baso # (Auto) 0.00 (0.00-0.20) K/uL Immature Gran # (Auto) 0.02 (0.01-0.20) K/uL Platelet Estimate Decreased L (Normal) RBC Morphology Unremarkable PT (9.0-12.0) Seconds INR (0.9-1.1) APTT (21.0-31.0) Seconds PTT Ratio Sodium 132 L (136-145) mmol/L Potassium 3.4 L (3.5-5.1) mmol/L Chloride 101 (98-107) mmol/L Carbon Dioxide 26 (21-32) mmol/L Anion Gap 5 (3-11) BUN 8 (6-23) mg/dl Creatinine 0.51 L (0.6-1.2) mg/dl Est Cr Clr Drug Dosing 88.5 Est GFR ( Amer) 121.1 ml/min Est GFR (Non-Af Amer) 104.5 ml/min BUN/Creatinine Ratio 15.7 (10-20) Glucose 88 (70-99(Fasting)) mg/dl Calcium 7.9 L (8.6-10.3) mg/dl Phosphorus 2.6 (2.5-4.9) mg/dl Magnesium 1.8 (1.7-2.4) mg/dl Total Bilirubin 0.7 (0.2-1.0) mg/dl Direct Bilirubin 0.2 (0-0.2) mg/dl AST 75 H (13-39) U/L ALT 22 (7-52) U/L Alkaline Phosphatase 80 (34-104) U/L Total Creatine Kinase 803 H (26-192) U/L Troponin I High Sens (0-14) pg/ml Total Protein 5.0 L D (6.0-8.3) gm/dl Albumin 2.8 L (3.4-5.0) gm/dl Globulin (2.5-4.0) gm/dl Albumin/Globulin Ratio (0.9-2) Vitamin B12 402 (180-914) pg/ml TSH (0.300-4.500) uIu/ml Urine Color Urine Appearance (Clear) Urine pH (4.5-7.5) Ur Specific Catal[place] (1.000-1.030) Urine Protein (Negative) Urine Glucose (UA) (Negative) Urine Ketones (Negative) Urine Blood (Negative) Urine Nitrite (Negative) Urine Bilirubin (Negative) Urine Urobilinogen (Negative) Ur Leukocyte Esterase (Negative) Urine WBC (Auto) (0-5) /hpf Urine RBC (Auto) (0-4) /hpf U Hyaline Cast (Auto) (0-5) /lpf U Epithel Cells (Auto) (0-5) /lpf Urine Bacteria (Auto) (Negative) 06/04/23 06/03/23 06/03/23 Range/Units 00:45 14:29 14:29 WBC (4.8-10.8) K/ul RBC (4.20-5.40) M/uL Hgb (12.0-16.0) g/dl Hct (37.0-47.0) % MCV (80.0-100.0) fL MCH (25.0-34.0) pg MCHC (32.0-36.0) g/dL RDW Std Deviation (36.4-46.3) fL RDW Coeff of Kendall (11.5-14.5) % Plt Count (130-400) K/uL MPV (9.4-12.4) fL Immature Gran % (Auto) % Neut % (Auto) % Lymph % (Auto) % Patrick % (Auto) % Eos % (Auto) % Baso % (Auto) % Neut # (Auto) (1.40-6.50) K/uL Lymph # (Auto) (1.20-3.40) K/uL Patrick # (Auto) (0.11-0.59) K/uL Eos # (Auto) (0.00-0.50) K/uL Baso # (Auto) (0.00-0.20) K/uL Immature Gran # (Auto) (0.01-0.20) K/uL Platelet Estimate (Normal) RBC Morphology PT 11.5 (9.0-12.0) Seconds INR 1.1 (0.9-1.1) APTT 26.5 (21.0-31.0) Seconds PTT Ratio 0.9 Sodium 128 L (136-145) mmol/L Potassium 3.0 L (3.5-5.1) mmol/L Chloride 90 L (98-107) mmol/L Carbon Dioxide 29 (21-32) mmol/L Anion Gap 9 (3-11) BUN 9 (6-23) mg/dl Creatinine 0.60 (0.6-1.2) mg/dl Est Cr Clr Drug Dosing Not Reportable Est GFR ( Amer) 114.8 ml/min Est GFR (Non-Af Amer) 99.1 ml/min BUN/Creatinine Ratio 15.0 (10-20) Glucose 119 H (70-99(Fasting)) mg/dl Calcium 9.0 (8.6-10.3) mg/dl Phosphorus (2.5-4.9) mg/dl Magnesium 1.2 L (1.7-2.4) mg/dl Total Bilirubin 0.9 (0.2-1.0) mg/dl Direct Bilirubin (0-0.2) mg/dl AST 94 H (13-39) U/L ALT 33 (7-52) U/L Alkaline Phosphatase 116 H (34-104) U/L Total Creatine Kinase 677 H (26-192) U/L Troponin I High Sens 9.1 (0-14) pg/ml Total Protein 6.8 (6.0-8.3) gm/dl Albumin 3.8 (3.4-5.0) gm/dl Globulin 3.0 (2.5-4.0) gm/dl Albumin/Globulin Ratio 1.3 (0.9-2) Vitamin B12 (180-914) pg/ml TSH 2.221 (0.300-4.500) uIu/ml Urine Color Yellow Urine Appearance Cloudy A (Clear) Urine pH 6.5 (4.5-7.5) Ur Specific Catal[place] 1.012 (1.000-1.030) Urine Protein Negative (Negative) Urine Glucose (UA) Negative (Negative) Urine Ketones Trace H (Negative) Urine Blood Trace H (Negative) Urine Nitrite Negative (Negative) Urine Bilirubin Negative (Negative) Urine Urobilinogen Negative (Negative) Ur Leukocyte Esterase 3+ H (Negative) Urine WBC (Auto) >30 H (0-5) /hpf Urine RBC (Auto) 0-4 (0-4) /hpf U Hyaline Cast (Auto) 1-5 (0-5) /lpf U Epithel Cells (Auto) 10-20 H (0-5) /lpf Urine Bacteria (Auto) Negative (Negative) 06/03/23 Range/Units 14:29 WBC 3.92 L (4.8-10.8) K/ul RBC 3.00 L (4.20-5.40) M/uL Hgb 9.9 L (12.0-16.0) g/dl Hct 29.2 L (37.0-47.0) % MCV 97.3 (80.0-100.0) fL MCH 33.0 (25.0-34.0) pg MCHC 33.9 (32.0-36.0) g/dL RDW Std Deviation 51.0 H (36.4-46.3) fL RDW Coeff of Kendall 14.2 (11.5-14.5) % Plt Count 147 (130-400) K/uL MPV 9.3 L (9.4-12.4) fL Immature Gran % (Auto) 0.8 % Neut % (Auto) 91.7 % Lymph % (Auto) 4.6 % Patrick % (Auto) 2.3 % Eos % (Auto) 0.3 % Baso % (Auto) 0.3 % Neut # (Auto) 3.60 (1.40-6.50) K/uL Lymph # (Auto) 0.18 L (1.20-3.40) K/uL Patrick # (Auto) 0.09 L (0.11-0.59) K/uL Eos # (Auto) 0.01 (0.00-0.50) K/uL Baso # (Auto) 0.01 (0.00-0.20) K/uL Immature Gran # (Auto) 0.03 (0.01-0.20) K/uL Platelet Estimate (Normal) RBC Morphology PT (9.0-12.0) Seconds INR (0.9-1.1) APTT (21.0-31.0) Seconds PTT Ratio Sodium (136-145) mmol/L Potassium (3.5-5.1) mmol/L Chloride (98-107) mmol/L Carbon Dioxide (21-32) mmol/L Anion Gap (3-11) BUN (6-23) mg/dl Creatinine (0.6-1.2) mg/dl Est Cr Clr Drug Dosing Est GFR ( Amer) ml/min Est GFR (Non-Af Amer) ml/min BUN/Creatinine Ratio (10-20) Glucose (70-99(Fasting)) mg/dl Calcium (8.6-10.3) mg/dl Phosphorus (2.5-4.9) mg/dl Magnesium (1.7-2.4) mg/dl Total Bilirubin (0.2-1.0) mg/dl Direct Bilirubin (0-0.2) mg/dl AST (13-39) U/L ALT (7-52) U/L Alkaline Phosphatase (34-104) U/L Total Creatine Kinase (26-192) U/L Troponin I High Sens (0-14) pg/ml Total Protein (6.0-8.3) gm/dl Albumin (3.4-5.0) gm/dl Globulin (2.5-4.0) gm/dl Albumin/Globulin Ratio (0.9-2) Vitamin B12 (180-914) pg/ml TSH (0.300-4.500) uIu/ml Urine Color Urine Appearance (Clear) Urine pH (4.5-7.5) Ur Specific [place] (1.000-1.030) Urine Protein (Negative) Urine Glucose (UA) (Negative) Urine Ketones (Negative) Urine Blood (Negative) Urine Nitrite (Negative) Urine Bilirubin (Negative) Urine Urobilinogen (Negative) Ur Leukocyte Esterase (Negative) Urine WBC (Auto) (0-5) /hpf Urine RBC (Auto) (0-4) /hpf U Hyaline Cast (Auto) (0-5) /lpf U Epithel Cells (Auto) (0-5) /lpf Urine Bacteria (Auto) (Negative) Medications Administered Current Inpatient Medications Acetaminophen (Acetaminophen 325 Mg Tab) 650 mg PO Q4H PRN PRN Reason: Pain or Fever Stop: 07/03/23 22:30 Buspirone HCl (Buspirone 15 Mg Tab) 15 mg PO BID [facility] Stop: 07/04/23 08:59 Ferrous Sulfate (Ferrous Sulfate 325 Mg Tab) 325 mg PO DAILY [facility] Stop: 07/04/23 09:14 Gabapentin (Gabapentin 600 Mg Tab) 600 mg PO Q24H [facility] Stop: 06/07/23 12:01 Gabapentin (Gabapentin 600 Mg Tab) 600 mg PO Q12H [facility] Stop: 06/06/23 12:01 Gabapentin (Gabapentin 600 Mg Tab) 600 mg PO Q8H [facility] Stop: 06/05/23 12:01 Gabapentin (Gabapentin 600 Mg Tab) 600 mg PO Q6H [facility] Stop: 06/04/23 12:01 Last Admin: 06/04/23 06:22 Dose: 600 mg Hydromorphone HCl (Hydromorphone Inj 0.5 Mg/0.5 Ml Syr) 0.25 mg IV Q3H PRN PRN Reason: Pain Stop: 06/17/23 22:30 Potassium Chloride/Sodium Chloride (Normal Saline W/20 Meq Kcl) 20 meq in 1,000 mls @ 100 mls/hr IV .Q10H [facility] Stop: 06/04/23 20:59 Last Admin: 06/04/23 02:50 Dose: 100 mls/hr Thiamine HCl 100 mg/ Syringe 10 mls @ 2 mls/min IV QAM [facility] Stop: 07/04/23 08:59 Folic Acid 1 mg/ Syringe 10 mls @ 5 mls/min IV QAM [facility] Stop: 07/04/23 08:59 Ceftriaxone Sodium 2,000 mg/ (Dextrose) 50 mls @ 100 mls/hr IV Q24H [facility]; Protocol Stop: 06/14/23 08:59 Sodium Chloride (Nss) 1,000 mls @ 125 mls/hr IV .Q8H [facility] Stop: 07/04/23 08:59 Lisinopril (Lisinopril 40 Mg Tab) 40 mg PO DAILY [facility] Stop: 07/04/23 08:59 Lorazepam (Lorazepam 2 Mg/1 Ml Vial) 3 mg IV ONCE PRN; Protocol PRN Reason: EtOH Withdrawal AWSS Score 10+ Lorazepam (Lorazepam 2 Mg/1 Ml Vial) 2 mg IV UD PRN; Protocol PRN Reason: EtOH Withdrawal AWSS Score 8,9 Stop: 07/03/23 22:30 Lorazepam (Lorazepam 2 Mg/1 Ml Vial) 1 mg IV UD PRN; Protocol PRN Reason: EtOH Withdrawal AWSS Score 6,7 Stop: 07/03/23 22:30 Metoprolol Tartrate (Metoprolol Tartrate 50 Mg Tab) 50 mg PO BID [facility] Stop: 07/04/23 08:59 Nitroglycerin (Nitroglycerin Sl 0.4 Mg/Tab Tab) 0.4 mg SL Q5M PRN PRN Reason: Chest Pain Stop: 07/03/23 22:30 Ondansetron HCl (Ondansetron Inj 2 Mg/Ml 2 Ml Vial) 4 mg IV Q6H PRN PRN Reason: Nausea Stop: 07/03/23 22:30 Pantoprazole Sodium (Pantoprazole 40 Mg Tab) 40 mg PO DAILY [facility] Stop: 07/04/23 08:59 Sertraline HCl (Sertraline Hcl 100 Mg Tablet) 100 mg PO DAILY [facility] Stop: 07/04/23 08:59
[2023-06-04] MEDS: THIAMINE HCL 100 MG in SYRINGE 9 ML IV SCH (09:45)
[2023-06-04] MEDS: FOLIC ACID 1 MG in SYRINGE 9.8 ML IV SCH (09:45)
[2023-06-04] MEDS: PANTOprazole 40 MG TAB PO SCH (10:12)
[2023-06-04] MEDS: FERROUS SULFATE 325 MG TAB PO SCH (10:12)
[2023-06-04] MEDS: METOPROLOL TARTRATE 50 MG TAB PO SCH ×2 (10:12→20:37)
[2023-06-04] MEDS: busPIRone 15 MG TAB PO SCH ×2 (10:12→20:37)
[2023-06-04] MEDS: SERTRALINE HCL 100 MG TABLET PO SCH (10:13)
[2023-06-04] MEDS: lisinopril 40 MG TAB PO SCH (10:13)
[2023-06-04] MEDS: HYDROmorphone INJ 0.5 MG/0.5 ML SYR IV PRN ×2 (11:01→21:08)
[2023-06-04] MEDS: cefTRIAXone SODIUM 2,000 MG in DEXTROSE 5 % MINI-B 50 ML IV SCH (11:08)
[2023-06-04] MEDS: CYANOCOBALAMIN (B-12) 500 MCG TABLET PO SCH (18:01)
[2023-06-05] MEDS: GABAPENTIN 600 MG TAB PO SCH ×3 (05:12→23:37)
[2023-06-05 06:44] LABS: Hematocrit (blood only) 22.2 % (37.0-47.0); Hemoglobin 7.5 g/dl (12.0-16.0); Mean Corpuscular Hemoglobin 34.1 pg (25.0-34.0); Mean Corpuscular Hgb Conc 33.8 g/dL (32.0-36.0); Mean Corpuscular Volume 100.9 fL (80.0-100.0); Mean Platelet Volume 9.9 fL (9.4-12.4); Platelet Count 82 K/uL (130-400); RDW Coefficient of Variation 13.9 % (11.5-14.5); RDW Standard Deviation 51.4 fL (36.4-46.3); White Blood Count 1.88 K/ul (4.8-10.8)
[2023-06-05 07:14] LABS: Albumin Globulin Ratio 1.2 (0.9-2); Albumin Level 2.8 gm/dl (3.4-5.0); BUN Creatinine Ratio 12.3 (10-20); Bilirubin,Total 0.4 mg/dl (0.2-1.0); Calcium 8.2 mg/dl (8.6-10.3); Creatinine Clr Calc Pharmacy 79.2 ml/min; Est GFR (African American) 116.8 ml/min; Est GFR (Non-African American) 100.8 ml/min; Globulin 2.3 gm/dl (2.5-4.0); Magnesium 1.4 mg/dl (1.7-2.4); Phosphorus 2.7 mg/dl (2.5-4.9); Potassium 4.1 mmol/L (3.5-5.1); Total Protein 5.1 gm/dl (6.0-8.3)
--- NOTE | 2023-06-05 08:07 | Hospitalist Progress Note ---
Date of Service June 05, 2023 Assessment & Plan (1) Fall: Plan: Pt is a 58 yo female w/ hypomagnesemia, hypokalemia, hypertension, iron deficiency anemia, general anxiety disorder, ongoing alcoholism, rectal cancer currently undergoing chemo presents with falls. Falls. mild acute superior endplate compression fracture of T12 - lidocaine patch - PT/OT Alcoholism. Electrolyte abnormalities. Ongoing chemo for rectal cancer UTI Hypomagnesemia and hypokalemia Replace likely secondary to poor PO intake and alcohol use encouraged PO intake - using protein shakes Follow labs Hyponatremia Sodium 128 -> 132 ->133 received IV fluids Follow labs UTI Rocephin We will follow cultures Rectal cancer On chemo Follows with heme-onc Hypertension Stable metoprolol we will monitor hold lisinopril for now Elevated CPK - received IVF - CPK level down Generalized anxiety disorder Zoloft and buspirone Alcoholism alcohol withdrawal protocol with gabapentin and Ativan as needed Thiamine and folic acid Iron deficiency anemia we will follow the labs Pancytopenia Mostly from chemo and ongoing alcoholism We will follow the labs DVT prophylaxis SCDs for now Disposition med/telemetry Full code Admission and Anticipated Discharge Date Admission Date: June 03, 2023 Subjective Pt seen in follow up of falls, weakness/ on chemotherapy, with electrolyte abnormalities, alcohol use Sitting up in bed in chair, at the bedside Says she does not eat much , drinks beer daily, says she has been drinking since she was 10. Says she feels full easily. Discussed trying protein shakes - ordered ensure. Pt interested in adding protein shakes to her diet to improve nutritional status. Says she was eating better now in the hospital and feeling better. Back pain from fall Review of Systems Review of Systems: All systems reviewed & are unremarkable except as noted in Subjective Physical Exam Physical Exam: General- Not in distress Head- atraumatic Eyes- PERRL. ENT- oropharynx clear Neck- supple, no JVD. Lungs- clear to auscultation no wheezing or crackles. Heart- regular rhythm; no murmur, no gallop. Abdomen- normal bowel sounds, soft, nontender, no distension. Extremities- no pretibial edema, right upper extremity in cast Neuro- alert, oriented x 3; PERRL, no facial palsy; no dysarthria; moves extremities Skin- warm & dry Results & Data Results & Data Vital Signs (Past 12 Hours) Vital Signs Temp Pulse Pulse Resp BP Pulse Ox O2 Del Method 06/05/23 07:50 36.9 C 78 16 129/72 87 L Room Air 06/05/23 03:30 37.3 C 74 18 116/71 94 Room Air 06/04/23 23:07 74 06/04/23 22:00 36.7 C 79 18 113/69 93 Room Air 06/04/23 22:09 Nasal Cannula Laboratory Results 06/05/23 06/05/23 Range/Units 05:38 05:38 WBC 1.88 L (4.8-10.8) K/ul RBC 2.20 L (4.20-5.40) M/uL Hgb 7.5 L (12.0-16.0) g/dl Hct 22.2 L (37.0-47.0) % MCV 100.9 H (80.0-100.0) fL MCH 34.1 H (25.0-34.0) pg MCHC 33.8 (32.0-36.0) g/dL RDW Std Deviation 51.4 H (36.4-46.3) fL RDW Coeff of Kendall 13.9 (11.5-14.5) % Plt Count 82 L (130-400) K/uL MPV 9.9 (9.4-12.4) fL Sodium 133 L (136-145) mmol/L Potassium 4.1 D (3.5-5.1) mmol/L Chloride 103 (98-107) mmol/L Carbon Dioxide 25 (21-32) mmol/L Anion Gap 5 (3-11) BUN 7 (6-23) mg/dl Creatinine 0.57 L (0.6-1.2) mg/dl Est Cr Clr Drug Dosing 79.2 ml/min Est GFR ( Amer) 116.8 ml/min Est GFR (Non-Af Amer) 100.8 ml/min BUN/Creatinine Ratio 12.3 (10-20) Glucose 91 (70-99(Fasting)) mg/dl Calcium 8.2 L (8.6-10.3) mg/dl Phosphorus 2.7 (2.5-4.9) mg/dl Magnesium 1.4 L (1.7-2.4) mg/dl Total Bilirubin 0.4 (0.2-1.0) mg/dl AST 62 H (13-39) U/L ALT 19 (7-52) U/L Alkaline Phosphatase 73 (34-104) U/L Total Creatine Kinase 439 H (26-192) U/L Total Protein 5.1 L (6.0-8.3) gm/dl Albumin 2.8 L (3.4-5.0) gm/dl Globulin 2.3 L (2.5-4.0) gm/dl Albumin/Globulin Ratio 1.2 (0.9-2) Medications Administered Current Inpatient Medications Acetaminophen (Acetaminophen 325 Mg Tab) 650 mg PO Q4H PRN PRN Reason: Pain or Fever Stop: 07/03/23 22:30 Buspirone HCl (Buspirone 15 Mg Tab) 15 mg PO BID [facility] Stop: 07/04/23 08:59 Last Admin: 06/04/23 20:37 Dose: 15 mg Cyanocobalamin (Cyanocobalamin (B-12) 500 Mcg Tablet) 500 mcg PO QAM [facility] Stop: 07/04/23 15:29 Last Admin: 06/04/23 18:01 Dose: 500 mcg Ferrous Sulfate (Ferrous Sulfate 325 Mg Tab) 325 mg PO DAILY [facility] Stop: 07/04/23 09:14 Last Admin: 06/04/23 10:12 Dose: 325 mg Gabapentin (Gabapentin 600 Mg Tab) 600 mg PO Q24H [facility] Stop: 06/07/23 12:01 Gabapentin (Gabapentin 600 Mg Tab) 600 mg PO Q12H [facility] Stop: 06/06/23 12:01 Gabapentin (Gabapentin 600 Mg Tab) 600 mg PO Q8H [facility] Stop: 06/05/23 12:01 Last Admin: 06/05/23 05:12 Dose: 600 mg Hydromorphone HCl (Hydromorphone Inj 0.5 Mg/0.5 Ml Syr) 0.25 mg IV Q3H PRN PRN Reason: Pain Stop: 06/17/23 22:30 Last Admin: 06/04/23 21:08 Dose: 0.25 mg Potassium Chloride/Sodium Chloride (Normal Saline W/20 Meq Kcl) 20 meq in 1,000 mls @ 100 mls/hr IV .Q10H [facility] Last Infusion: 06/05/23 07:21 Dose: Infused Thiamine HCl 100 mg/ Syringe 10 mls @ 2 mls/min IV QAM [facility] Stop: 07/04/23 08:59 Last Admin: 06/04/23 09:45 Dose: 2 mls/min Folic Acid 1 mg/ Syringe 10 mls @ 5 mls/min IV QAM [facility] Stop: 07/04/23 08:59 Last Admin: 06/04/23 09:45 Dose: 5 mls/min Ceftriaxone Sodium 2,000 mg/ (Dextrose) 50 mls @ 100 mls/hr IV Q24H [facility]; Protocol Stop: 06/14/23 08:59 Last Infusion: 06/04/23 11:44 Dose: Infused Sodium Chloride (Nss) 1,000 mls @ 125 mls/hr IV .Q8H [facility] Stop: 07/04/23 08:59 Last Infusion: 06/05/23 07:21 Dose: Infused Magnesium Sulfate/Dextrose (Magnesium Sulfate / D5w) 1 gm in 100 mls @ 50 mls/hr IV Q2H [facility] Stop: 06/05/23 12:14 Lisinopril (Lisinopril 40 Mg Tab) 40 mg PO DAILY [facility] Stop: 07/04/23 08:59 Last Admin: 06/04/23 10:13 Dose: Not Given Lorazepam (Lorazepam 2 Mg/1 Ml Vial) 3 mg IV ONCE PRN; Protocol PRN Reason: EtOH Withdrawal AWSS Score 10+ Lorazepam (Lorazepam 2 Mg/1 Ml Vial) 2 mg IV UD PRN; Protocol PRN Reason: EtOH Withdrawal AWSS Score 8,9 Stop: 07/03/23 22:30 Lorazepam (Lorazepam 2 Mg/1 Ml Vial) 1 mg IV UD PRN; Protocol PRN Reason: EtOH Withdrawal AWSS Score 6,7 Stop: 07/03/23 22:30 Metoprolol Tartrate (Metoprolol Tartrate 50 Mg Tab) 50 mg PO BID [facility] Stop: 07/04/23 08:59 Last Admin: 06/04/23 20:37 Dose: 50 mg Nitroglycerin (Nitroglycerin Sl 0.4 Mg/Tab Tab) 0.4 mg SL Q5M PRN PRN Reason: Chest Pain Stop: 07/03/23 22:30 Ondansetron HCl (Ondansetron Inj 2 Mg/Ml 2 Ml Vial) 4 mg IV Q6H PRN PRN Reason: Nausea Stop: 07/03/23 22:30 Pantoprazole Sodium (Pantoprazole 40 Mg Tab) 40 mg PO DAILY [facility] Stop: 07/04/23 08:59 Last Admin: 06/04/23 10:12 Dose: 40 mg Sertraline HCl (Sertraline Hcl 100 Mg Tablet) 100 mg PO DAILY [facility] Stop: 07/04/23 08:59 Last Admin: 06/04/23 10:13 Dose: 100 mg
[2023-06-05] MEDS: cefTRIAXone SODIUM 2,000 MG in DEXTROSE 5 % MINI-B 50 ML IV SCH (08:10)
[2023-06-05] MEDS: THIAMINE HCL 100 MG in SYRINGE 9 ML IV SCH (08:11)
[2023-06-05] MEDS: FOLIC ACID 1 MG in SYRINGE 9.8 ML IV SCH (08:11)
[2023-06-05] MEDS: SERTRALINE HCL 100 MG TABLET PO SCH (08:15)
[2023-06-05] MEDS: METOPROLOL TARTRATE 50 MG TAB PO SCH ×2 (08:15→20:58)
[2023-06-05] MEDS: busPIRone 15 MG TAB PO SCH ×2 (08:15→20:57)
[2023-06-05] MEDS: PANTOprazole 40 MG TAB PO SCH (08:15)
[2023-06-05] MEDS: FERROUS SULFATE 325 MG TAB PO SCH (08:16)
[2023-06-05] MEDS: CYANOCOBALAMIN (B-12) 500 MCG TABLET PO SCH (08:16)
[2023-06-05] MEDS: HYDROmorphone INJ 0.5 MG/0.5 ML SYR IV PRN ×2 (08:53→20:58)
[2023-06-05] MEDS: MAGNESIUM SULFATE / D5W 1 GM/100 ML BAG IV SCH ×2 (09:31→11:03)
[2023-06-05] MEDS ORDERED: LIDOCAINE 5% 1 PATCH TD STA (17:27)
[2023-06-06 07:42] LABS: Hematocrit (blood only) 22.6 % (37.0-47.0); Hemoglobin 7.5 g/dl (12.0-16.0); Mean Corpuscular Hemoglobin 33.3 pg (25.0-34.0); Mean Corpuscular Hgb Conc 33.2 g/dL (32.0-36.0); Mean Corpuscular Volume 100.4 fL (80.0-100.0); Mean Platelet Volume 9.9 fL (9.4-12.4); Platelet Count 82 K/uL (130-400); RDW Coefficient of Variation 13.6 % (11.5-14.5); RDW Standard Deviation 50.9 fL (36.4-46.3); Red Blood Count 2.25 M/uL (4.20-5.40); White Blood Count 1.33 K/ul (4.8-10.8)
[2023-06-06 07:53] LABS: BUN Creatinine Ratio 11.1 (10-20); Calcium 8.5 mg/dl (8.6-10.3); Creatinine Clr Calc Pharmacy 71.7 ml/min; Est GFR (Non-African American) 97.5 ml/min; Magnesium 1.6 mg/dl (1.7-2.4); Phosphorus 2.9 mg/dl (2.5-4.9)
[2023-06-06] MEDS: cefTRIAXone SODIUM 2,000 MG in DEXTROSE 5 % MINI-B 50 ML IV SCH (08:00)
[2023-06-06] MEDS: THIAMINE HCL 100 MG in SYRINGE 9 ML IV SCH (08:00)
[2023-06-06] MEDS: PANTOprazole 40 MG TAB PO SCH (08:01)
[2023-06-06] MEDS: FOLIC ACID 1 MG in SYRINGE 9.8 ML IV SCH (08:01)
[2023-06-06] MEDS: busPIRone 15 MG TAB PO SCH ×2 (08:01→20:56)
[2023-06-06] MEDS: FERROUS SULFATE 325 MG TAB PO SCH (08:01)
[2023-06-06] MEDS: SERTRALINE HCL 100 MG TABLET PO SCH (08:01)
[2023-06-06] MEDS: CYANOCOBALAMIN (B-12) 500 MCG TABLET PO SCH (08:01)
[2023-06-06] MEDS: METOPROLOL TARTRATE 50 MG TAB PO SCH ×2 (08:01→20:56)
[2023-06-06] MEDS ORDERED: MAGNESIUM SULFATE / D5W 1 GM/100 ML BAG IV ONE (09:31)
--- NOTE | 2023-06-06 10:19 | Consultation ---
Date of Consultation June 06, 2023 Assessment & Plan (1) T12 compression fracture: Amanda sustained a fall 3 days ago which resulted in an acute T12 compression fracture. Dr. Baker has reviewed imaging and plan. Treatment is conservative. I will order a TLSO brace to be worn when up and ambulatory. May remove when in a seated position and sleeping/lying down. Ambulate ad julius. No lifting over 5 pounds. I will see her in the office in about 2 weeks. We will sign off for now. Please do not hesitate to contact us with any further questions. History of Present Illness Reason for Consultation: Compression fracture Attending Physician: Jarvis Hay MD History of Present Illness Is a pleasant 58-year-old female currently battling rectal cancer and undergoing chemotherapy treatments who sustained a fall 3 days ago while at home. She states she has a walker but typically she ambulates independently. She lives at home with her . Her legs were weak and gave out which resulted in her fall. She has no radicular leg pain. Only complains of back pain. She also has a right wrist fracture which is casted from a previous fall. She currently states her back pain is a 4-6 out of 10. When she arrived to the hospital 3 days ago she rated to be an 8 out of 10. Allergies Allergy/AdvReac Type Severity Reaction Status Date / Time No Known Allergies Allergy Verified 04/07/23 11:45 Home Medications Medication Instructions Recorded Confirmed Type buspirone 15 mg tablet 15 mg PO BID 06/04/23 06/04/23 History ferrous sulfate 325 mg (65 mg 325 mg PO DAILY 06/04/23 06/04/23 History iron) tablet folic acid 1 mg tablet 1 mg PO DAILY 06/04/23 06/04/23 History lisinopril 40 mg tablet 40 mg PO DAILY 06/04/23 06/04/23 History metoprolol tartrate 50 mg tablet 50 mg PO BID 06/04/23 06/04/23 History pantoprazole 40 mg tablet,delayed 40 mg PO DAILY 06/04/23 06/04/23 History release sertraline 100 mg tablet 100 mg PO DAILY 06/04/23 06/04/23 History thiamine HCl (vitamin B1) 100 mg 100 mg PO DAILY 06/04/23 06/04/23 History tablet Patient History Medical History Alcohol abuse Anxiety Bipolar affect, depressed Depression Essential hypertension Feeling suicidal Fracture of lumbar spine History of peptic ulcer Rectal cancer Seizure Surgical History H/O colonoscopy H/O esophagogastroduodenoscopy S/P D&C (status post dilation and curettage) Family History Family/Other Cancer brain and lung from separate female cousins Social History Smoking Status: Former smoker Tobacco Type: Cigarettes Second Hand Exposure: No; Do You Dip or Chew Tobacco: No; Tobacco Cessation Education Requested by Patient: No Hx Alcohol Use: Yes Alcohol type: beer Alcohol Intake Frequency: 4 or More x per/Week Alcohol Intake Frequency Comment: 6-9 16oz beer/day Hx Substance Use: No Preferred Language: Albanian Communication Ability: Effective Visual Impairment: No Limitations Hearing Ability: Normal Patient Transition Specialist Required: No Beliefs That Will Affect Care: None Current Living Situation: Spouse Current Living Situation Comment: Home current occupational status: unemployed Other Information That Helps Us Care for You: No Feels Safe at Home: Yes Safety Concerns: Feels Safe At This Time during the past year weight has: remained stable Assistive Devices: Walker and Wheelchair Review of Systems Review of Systems: All systems reviewed & are unremarkable except as noted in HPI & below Physical Exam Physical Exam: She is resting in bed in no acute distress Alert and oriented x3 Cast is noted on right wrist Painful with range of motion changing positions in the thoracolumbar spine Strength is 5/5 bilateral EHL, dorsiflexion, plantarflexion, quadriceps, hamstrings Constitutional: + thin Eyes: PERRL, conjunctivae normal, anicteric sclerae ENMT: external ear and nose normal, oropharynx normal Neck: normal visual inspection Respiratory: normal respiratory effort Cardiovascular: Extremities: normal capillary refill Gastrointestinal (Abdomen): Inspection/Auscultation: abdomen normal to inspection Musculoskeletal: Spine: + pain with thoraco-lumbar ROM and + thoracic spinal tenderness Extremities: strength 5/5 throughout Cast noted right upper extremity Skin: no rashes, warm and dry Neurologic: normal touch/pain/proprioception and moves all extremities Psychiatric: A+Ox3, euthymic affect Results & Data Vital Signs (Past 12 Hours) Vital Signs Temp Pulse Pulse Resp BP Pulse Ox O2 Del Method 06/06/23 08:30 Nasal Cannula 06/06/23 07:56 36.6 C 80 18 149/77 H 92 Room Air 06/06/23 03:20 36.7 C 69 18 132/75 96 Nasal Cannula 06/05/23 23:42 76 O2 Flow Rate 06/06/23 08:30 1 06/06/23 07:56 06/06/23 03:20 2 06/05/23 23:42 Diagnostic Findings [facility], [place] [phone] CT Scan Report Patient:AMANDA GARRETT Admit Date:06/03/23 MR#:[id number] Address1:[address] [place] [address] Acct ID:[id number] Address2: Date:1965 [facility] [place] [address] Age:58 Location: Sex:F Room/Bed:[facility] Att Phy:Jarvis Hay MD Diagnosis:FALL, ALCOHOLISM Jeannine Phy:Shelli Ritter MD Service Date:06/03/23 Fam Phy: Interpreting Phy:[facility]y:Angel Jordan MD Ordering Phy:Lamberto Avila PA-C cc: ~ CT SCAN OF THE LUMBAR SPINE WITHOUT IV CONTRAST CLINICAL HISTORY: Fall. Low back pain. COMPARISON STUDY: CT scan of the lumbar spine dated 10/22/2013. Abdominal CT dated 12/27/2022. TECHNIQUE: CT scan of the lumbar spine is performed from the lower thoracic spine to the sacrum. Images are reviewed in the axial, sagittal, and coronal planes. IV contrast was not administered for this examination. A dose lowering technique was utilized adhering to the principles of ALARA. CT DOSE: 1027.1 mGy.cm FINDINGS: The skeletal structures are osteopenic. There is no evidence of acute fracture or malalignment involving the lumbar spine. There is a mild acute superior endplate compression fracture of T12 which is new from 12/27/2022. There is no evidence of posterior element involvement or significantly retropulsed fragments. Mild paravertebral edema is seen at this level. Vertebral body height and alignment are maintained throughout the lumbar spine. There is moderate lum bar levocurvature centered at L3. Large anterior and lateral marginal osteophytes are seen throughout. The transverse and spinous processes are intact. There is no spondylolysis. No lytic or blastic lesion is seen. There is moderate disc space narrowing with endplate sclerosis noted at L3-L4. Mild disc space narrowing is seen at the remaining lumbar levels. Posterior disc osteophyte complexes are seen at most lumbar levels. There is no CT evidence of high-grade central canal stenosis. Right lateral disc bulges at L3-L4 and L4-L5 contribute subarticular stenosis and Main impingement on the exiting right L3 and L4 nerve roots. Facet arthropathy is noted in the lower lumbar region. There is chronic posttraumatic deformity of the sacrum. There is fatty atrophy of the paraspinous musculature. There is moderate atherosclerotic calcification of the abdominal aorta which is normal in course and caliber. No retroperitoneal lymphadenopathy is seen. IMPRESSION: 1. There is no evidence of acute fracture or malalignment involving the lumbar spine. 2. There is a mild acute superior endplate compression fracture of T12 as above. No significant retropulsion of fragments is seen. 3. Osteopenia with lumbosacral spondylosis and scoliosis as above. ACT 112: Negative or not required by law. Electronically signed by: Adam Guadarrama M.D. 06/03/2023 10:50 PM Dictated:06/03/232244 Transcribed: 06/03/232244
[2023-06-06] MEDS: GABAPENTIN 600 MG TAB PO SCH (12:02)
[2023-06-06] MEDS: HYDROmorphone INJ 0.5 MG/0.5 ML SYR IV PRN (15:42)
--- NOTE | 2023-06-06 16:35 | Hospitalist Progress Note ---
Date of Service June 06, 2023 Assessment & Plan (1) Fall: Plan: Pt is a 58 yo female w/ hypomagnesemia, hypokalemia, hypertension, iron deficiency anemia, general anxiety disorder, ongoing alcoholism, rectal cancer currently undergoing chemo presents with falls. Falls. mild acute superior endplate compression fracture of T12 - lidocaine patch - PT/OT Alcoholism. Electrolyte abnormalities. Ongoing chemo for rectal cancer UTI Hypomagnesemia and hypokalemia Replace likely secondary to poor PO intake and alcohol use encouraged PO intake - using protein shakes Follow labs Hyponatremia Sodium 128 -> 132 ->133 received IV fluids Follow labs UTI Rocephin We will follow cultures Rectal cancer On chemo Follows with heme-onc Hypertension Stable metoprolol we will monitor hold lisinopril for now Elevated CPK - received IVF - CPK level down Generalized anxiety disorder Zoloft and buspirone Alcoholism alcohol withdrawal protocol with gabapentin and Ativan as needed Thiamine and folic acid Iron deficiency anemia we will follow the labs Pancytopenia Mostly from chemo and ongoing alcoholism We will follow the labs DVT prophylaxis SCDs for now Disposition med/telemetry Full code Admission and Anticipated Discharge Date Admission Date: June 03, 2023 Subjective Pt seen in follow up of falls, weakness/ on chemotherapy, with electrolyte abnormalities, alcohol use Laying in bed in NAD Says she does not eat much , drinks beer daily. Says she feels full easily. Discussed trying protein shakes - ordered ensure. Pt reports drinking protein shakes now and actually enjoying them. Says she was eating better now in the hospital and feeling better. Back pain fr om fall, seen by ortho - plan for brace. Review of Systems Review of Systems: All systems reviewed & are unremarkable except as noted in Subjective Physical Exam Physical Exam: General- Not in distress Head- atraumatic Eyes- PERRL. ENT- oropharynx clear Neck- supple, no JVD. Lungs- clear to auscultation no wheezing or crackles. Heart- regular rhythm; no murmur, no gallop. Abdomen- normal bowel sounds, soft, nontender, no distension. Extremities- no pretibial edema, right upper extremity in cast Neuro- alert, oriented x 3; PERRL, no facial palsy; no dysarthria; moves extremities Skin- warm & dry Results & Data Results & Data Vital Signs (Past 12 Hours) Vital Signs Temp Pulse Pulse Resp BP Pulse Ox O2 Del Method 10/16/23 15:59 36.7 C 81 16 144/78 H 90 Room Air 06/06/23 15:55 76 06/06/23 11:35 36.7 C 80 16 120/76 91 Room Air 06/06/23 08:30 Nasal Cannula 06/06/23 07:56 36.6 C 80 18 149/77 H 92 Room Air O2 Flow Rate 06/06/23 15:59 06/06/23 15:55 06/06/23 11:35 06/06/23 08:30 1 06/06/23 07:56 Laboratory Results 06/06/23 06/06/23 Range/Units 06:58 06:58 WBC 1.33 L (4.8-10.8) K/ul RBC 2.25 L (4.20-5.40) M/uL Hgb 7.5 L (12.0-16.0) g/dl Hct 22.6 L (37.0-47.0) % MCV 100.4 H (80.0-100.0) fL MCH 33.3 (25.0-34.0) pg MCHC 33.2 (32.0-36.0) g/dL RDW Std Deviation 50.9 H (36.4-46.3) fL RDW Coeff of [place] 13.6 (11.5-14.5) % Plt Count 82 L (130-400) K/uL MPV 9.9 (9.4-12.4) fL Sodium 135 L (136-145) mmol/L Potassium 4.0 (3.5-5.1) mmol/L Chloride 103 (98-107) mmol/L Carbon Dioxide 28 (21-32) mmol/L Anion Gap 4 (3-11) BUN 7 (6-23) mg/dl Creatinine 0.63 (0.6-1.2) mg/dl Est Cr Clr Drug Dosing 71.7 ml/min Est GFR ( Amer) 113.0 ml/min Est GFR (Non-Af Amer) 97.5 ml/min BUN/Creatinine Ratio 11.1 (10-20) Glucose 98 (70-99(Fasting)) mg/dl Calcium 8.5 L (8.6-10.3) mg/dl Phosphorus 2.9 (2.5-4.9) mg/dl Magnesium 1.6 L (1.7-2.4) mg/dl Medications Administered Current Inpatient Medications Acetaminophen (Acetaminophen 325 Mg Tab) 650 mg PO Q4H PRN PRN Reason: Pain or Fever Stop: 07/03/23 22:30 Buspirone HCl (Buspirone 15 Mg Tab) 15 mg PO BID [facility] Stop: 07/04/23 08:59 Last Admin: 06/06/23 08:01 Dose: 15 mg Cyanocobalamin (Cyanocobalamin (B-12) 500 Mcg Tablet) 500 mcg PO QAM [facility] Stop: 07/04/23 15:29 Last Admin: 06/06/23 08:01 Dose: 500 mcg Ferrous Sulfate (Ferrous Sulfate 325 Mg Tab) 325 mg PO DAILY [facility] Stop: 07/04/23 09:14 Last Admin: 06/06/23 08:01 Dose: 325 mg Gabapentin (Gabapentin 600 Mg Tab) 600 mg PO Q24H [facility] Stop: 06/07/23 12:01 Hydromorphone HCl (Hydromorphone Inj 0.5 Mg/0.5 Ml Syr) 0.25 mg IV Q3H PRN PRN Reason: Pain Stop: 06/17/23 22:30 Last Admin: 06/06/23 15:42 Dose: 0.25 mg Potassium Chloride/Sodium Chloride (Normal Saline W/20 Meq Kcl) 20 meq in 1,000 mls @ 100 mls/hr IV .Q10H [facility] Last Infusion: 06/05/23 07:21 Dose: Infused Thiamine HCl 100 mg/ Syringe 10 mls @ 2 mls/min IV QAM [facility] Stop: 07/04/23 08:59 Last Admin: 06/06/23 08:00 Dose: 2 mls/min Folic Acid 1 mg/ Syringe 10 mls @ 5 mls/min IV QAM [facility] Stop: 07/04/23 08:59 Last Admin: 06/06/23 08:01 Dose: 5 mls/min Ceftriaxone Sodium 2,000 mg/ (Dextrose) 50 mls @ 100 mls/hr IV Q24H [facility]; Protocol Stop: 06/14/23 08:59 Last Infusion: 06/06/23 08:40 Dose: Infused Sodium Chloride (Nss) 1,000 mls @ 125 mls/hr IV .Q8H [facility] Stop: 07/04/23 08:59 Last Infusion: 06/05/23 07:21 Dose: Infused Lisinopril (Lisinopril 40 Mg Tab) 40 mg PO DAILY [facility] Stop: 07/04/23 08:59 Last Admin: 06/04/23 10:13 Dose: Not Given Lorazepam (Lorazepam 2 Mg/1 Ml Vial) 3 mg IV ONCE PRN; Protocol PRN Reason: EtOH Withdrawal AWSS Score 10+ Lorazepam (Lorazepam 2 Mg/1 Ml Vial) 2 mg IV UD PRN; Protocol PRN Reason: EtOH Withdrawal AWSS Score 8,9 Stop: 07/03/23 22:30 Lorazepam (Lorazepam 2 Mg/1 Ml Vial) 1 mg IV UD PRN; Protocol PRN Reason: EtOH Withdrawal AWSS Score 6,7 Stop: 07/03/23 22:30 Metoprolol Tartrate (Metoprolol Tartrate 50 Mg Tab) 50 mg PO BID [facility] Stop: 07/04/23 08:59 Last Admin: 06/06/23 08:01 Dose: 50 mg Nitroglycerin (Nitroglycerin Sl 0.4 Mg/Tab Tab) 0.4 mg SL Q5M PRN PRN Reason: Chest Pain Stop: 07/03/23 22:30 Ondansetron HCl (Ondansetron Inj 2 Mg/Ml 2 Ml Vial) 4 mg IV Q6H PRN PRN Reason: Nausea Stop: 07/03/23 22:30 Pantoprazole Sodium (Pantoprazole 40 Mg Tab) 40 mg PO DAILY [facility] Stop: 07/04/23 08:59 Last Admin: 06/06/23 08:01 Dose: 40 mg Sertraline HCl (Sertraline Hcl 100 Mg Tablet) 100 mg PO DAILY [facility] Stop: 07/04/23 08:59 Last Admin: 06/06/23 08:01 Dose: 100 mg
[2023-06-06 22:42] LABS: Appearance Urine Clear (Clear); Bilirubin Urine Negative (Negative); Blood Urine Negative (Negative); Color Urine Yellow; Glucose Urine UA Negative (Negative); Ketones Urine Negative (Negative); Leukocyte Esterase Urine Negative (Negative); Nitrite Urine Negative (Negative); Protein Urine Negative (Negative); Urobilinogen Urine Negative (Negative); pH Urine 6.5 (4.5-7.5)
[2023-06-07 06:14] LABS: Hematocrit (blood only) 22.4 % (37.0-47.0); Hemoglobin 7.5 g/dl (12.0-16.0)
[2023-06-07 06:24] LABS: BUN Creatinine Ratio 17.5 (10-20); Calcium 8.6 mg/dl (8.6-10.3); Creatinine Clr Calc Pharmacy 71.7 ml/min; Est GFR (Non-African American) 97.5 ml/min; Magnesium 1.4 mg/dl (1.7-2.4); Phosphorus 2.6 mg/dl (2.5-4.9); Potassium 4.1 mmol/L (3.5-5.1)
[2023-06-07] MEDS: FERROUS SULFATE 325 MG TAB PO SCH (08:33)
[2023-06-07] MEDS: METOPROLOL TARTRATE 50 MG TAB PO SCH ×2 (08:33→20:29)
[2023-06-07] MEDS: busPIRone 15 MG TAB PO SCH ×2 (08:33→20:29)
[2023-06-07] MEDS: SERTRALINE HCL 100 MG TABLET PO SCH (08:33)
[2023-06-07] MEDS: CYANOCOBALAMIN (B-12) 500 MCG TABLET PO SCH (08:33)
[2023-06-07] MEDS: THIAMINE HCL 100 MG in SYRINGE 9 ML IV SCH (08:34)
[2023-06-07] MEDS: PANTOprazole 40 MG TAB PO SCH (08:34)
[2023-06-07] MEDS: FOLIC ACID 1 MG in SYRINGE 9.8 ML IV SCH (08:34)
[2023-06-07] MEDS: cefTRIAXone SODIUM 2,000 MG in DEXTROSE 5 % MINI-B 50 ML IV SCH (08:35)
[2023-06-07] MEDS ORDERED: LIDOCAINE 5% 1 PATCH TD STA (09:07)
[2023-06-07] MEDS: MAGNESIUM SULFATE / D5W 1 GM/100 ML BAG IV SCH ×2 (09:54→12:13)
[2023-06-07] MEDS: MAGNESIUM OXIDE 400 MG TAB PO SCH ×2 (09:55→20:28)
[2023-06-07] MEDS ORDERED: GABAPENTIN 600 MG TAB PO SCH (12:00)
[2023-06-07] MEDS ORDERED: POLYETHYLENE (MIRALAX) 17 GM PACK PO PRN (18:30)
--- NOTE | 2023-06-07 19:00 | Hospitalist Progress Note ---
Date of Service June 07, 2023 Assessment & Plan (1) Fall: Plan: Pt is a 58 yo female w/ hypomagnesemia, hypokalemia, hypertension, iron deficiency anemia, general anxiety disorder, ongoing alcoholism, rectal cancer currently undergoing chemo presents with falls. Falls. mild acute superior endplate compression fracture of T12 - lidocaine patch - PT/OT Alcoholism. Electrolyte abnormalities. Ongoing chemo for rectal cancer UTI Hypomagnesemia and hypokalemia Replace likely secondary to poor PO intake and alcohol use encouraged PO intake - using protein shakes Follow labs - will likely need magnesium supplement on discharge Hyponatremia Sodium 128 -> 132 ->133 received IV fluids Follow labs UTI ucultx inconclusive - repeat UA negative Rocephin -> stop rocephin Rectal cancer On chemo Follows with heme-onc Hypertension Stable metoprolol we will monitor hold lisinopril for now Elevated CPK - received IVF - CPK level down Generalized anxiety disorder Zoloft and buspirone Alcoholism alcohol withdrawal protocol with gabapentin and Ativan as needed Thiamine and folic acid Iron deficiency anemia we will follow the labs Pancytopenia Mostly from chemo and ongoing alcoholism We will follow the labs DVT prophylaxis SCDs for now Disposition med/telemetry Full code Admission and Anticipated Discharge Date Admission Date: June 03, 2023 Subjective Pt seen in follow up of falls, weakness/ on chemotherapy, with electrolyte abnormalities, alcohol use Laying in bed in NAD Says she does not eat much , drinks beer daily. Says she feels full easily. Discussed trying protein shakes - ordered ensure. Pt reports drinking protein shakes now and actually enjoying them. Says she was eating better now in the hospital and feeling better. Back pain from fall, seen by ortho - brace ordered and delivered - > awaiting PT eval. Review of Systems Review of Systems: All systems reviewed & are unremarkable except as noted in Subjective Physical Exam Physical Exam: General- Not in distress Head- atraumatic Eyes- PERRL. ENT- oropharynx clear Neck- supple, no JVD. Lungs- clear to auscultation no wheezing or crackles. Heart- regular rhythm; no murmur, no gallop. Abdomen- normal bowel sounds, soft, nontender, no distension. Extremities- no pretibial edema, right upper extremity in cast Neuro- alert, oriented x 3; PERRL, no facial palsy; no dysarthria; moves extremities Skin- warm & dry Results & Data Results & Data Vital Signs (Past 12 Hours) Vital Signs Temp Pulse Pulse Resp BP Pulse Ox O2 Del Method 06/07/23 14:55 73 06/07/23 14:59 36.4 C L 74 18 135/83 96 Room Air 06/07/23 11:10 36.9 C 80 18 142/79 H 95 Nasal Cannula 06/07/23 07:47 Nasal Cannula 06/07/23 07:44 36.8 C 76 18 162/83 H 97 Room Air O2 Flow Rate 06/07/23 14:55 06/07/23 14:59 06/07/23 11:10 2 06/07/23 07:47 1 06/07/23 07:44 Laboratory Results 06/07/23 06/07/23 06/06/23 Range/Units 05:52 05:52 22:35 Hgb 7.5 L (12.0-16.0) g/dl Hct 22.4 L (37.0-47.0) % Sodium 135 L (136-145) mmol/L Potassium 4.1 (3.5-5.1) mmol/L Chloride 102 (98-107) mmol/L Carbon Dioxide 30 (21-32) mmol/L Anion Gap 3 (3-11) BUN 11 (6-23) mg/dl Creatinine 0.63 (0.6-1.2) mg/dl Est Cr Clr Drug Dosing 71.7 ml/min Est GFR ( Amer) 113.0 ml/min Est GFR (Non-Af Amer) 97.5 ml/min BUN/Creatinine Ratio 17.5 (10-20) Glucose 111 H (70-99(Fasting)) mg/dl Calcium 8.6 (8.6-10.3) mg/dl Phosphorus 2.6 (2.5-4.9) mg/dl Magnesium 1.4 L (1.7-2.4) mg/dl Urine Color Yellow Urine Appearance Clear (Clear) Urine pH 6.5 (4.5-7.5) Ur Specific [place] 1.010 (1.000-1.030) Urine Protein Negative (Negative) Urine Glucose (UA) Negative (Negative) Urine Ketones Negative (Negative) Urine Blood Negative (Negative) Urine Nitrite Negative (Negative) Urine Bilirubin Negative (Negative) Urine Urobilinogen Negative (Negative) Ur Leukocyte Esterase Negative (Negative) Medications Administered Current Inpatient Medications Acetaminophen (Acetaminophen 325 Mg Tab) 650 mg PO Q4H PRN PRN Reason: Pain or Fever Stop: 07/03/23 22:30 Buspirone HCl (Buspirone 15 Mg Tab) 15 mg PO BID [facility] Stop: 07/04/23 08:59 Last Admin: 06/07/23 08:33 Dose: 15 mg Cyanocobalamin (Cyanocobalamin (B-12) 500 Mcg Tablet) 500 mcg PO QAM [facility] Stop: 07/04/23 15:29 Last Admin: 06/07/23 08:33 Dose: 500 mcg Ferrous Sulfate (Ferrous Sulfate 325 Mg Tab) 325 mg PO DAILY [facility] Stop: 07/04/23 09:14 Last Admin: 06/07/23 08:33 Dose: 325 mg Potassium Chloride/Sodium Chloride (Normal Saline W/20 Meq Kcl) 20 meq in 1,000 mls @ 100 mls/hr IV .Q10H [facility] Last Infusion: 06/05/23 07:21 Dose: Infused Thiamine HCl 100 mg/ Syringe 10 mls @ 2 mls/min IV QAM [facility] Stop: 07/04/23 08:59 Last Admin: 06/07/23 08:34 Dose: 2 mls/min Folic Acid 1 mg/ Syringe 10 mls @ 5 mls/min IV QAM [facility] Stop: 07/04/23 08:59 Last Admin: 06/07/23 08:34 Dose: 5 mls/min Ceftriaxone Sodium 2,000 mg/ (Dextrose) 50 mls @ 100 mls/hr IV Q24H [facility]; Protocol Stop: 06/14/23 08:59 Last Infusion: 06/07/23 09:05 Dose: Infused Lisinopril (Lisinopril 40 Mg Tab) 40 mg PO DAILY [facility] Stop: 07/04/23 08:59 Last Admin: 06/04/23 10:13 Dose: Not Given Lorazepam (Lorazepam 2 Mg/1 Ml Vial) 3 mg IV ONCE PRN; Protocol PRN Reason: EtOH Withdrawal AWSS Score 10+ Lorazepam (Lorazepam 2 Mg/1 Ml Vial) 2 mg IV UD PRN; Protocol PRN Reason: EtOH Withdrawal AWSS Score 8,9 Stop: 07/03/23 22:30 Lorazepam (Lorazepam 2 Mg/1 Ml Vial) 1 mg IV UD PRN; Protocol PRN Reason: EtOH Withdrawal AWSS Score 6,7 Stop: 07/03/23 22:30 Magnesium Oxide (Magnesium Oxide 400 Mg Tab) 400 mg PO BID [facility] Stop: 07/07/23 09:14 Last Admin: 06/07/23 09:55 Dose: 400 mg Metoprolol Tartrate (Metoprolol Tartrate 50 Mg Tab) 50 mg PO BID [facility] Stop: 07/04/23 08:59 Last Admin: 06/07/23 08:33 Dose: 50 mg Miscellaneous (Remove Lidoderm Patch) 1 each N/A DAILY@2100 [facility] Stop: 06/07/23 21:01 Nitroglycerin (Nitroglycerin Sl 0.4 Mg/Tab Tab) 0.4 mg SL Q5M PRN PRN Reason: Chest Pain Stop: 07/03/23 22:30 Ondansetron HCl (Ondansetron Inj 2 Mg/Ml 2 Ml Vial) 4 mg IV Q6H PRN PRN Reason: Nausea Stop: 07/03/23 22:30 Oxycodone HCl (Oxycodone Hcl Ir 5 Mg Tab (Immediate Release)) 5 mg PO Q4H PRN PRN Reason: Pain Stop: 06/21/23 09:05 Pantoprazole Sodium (Pantoprazole 40 Mg Tab) 40 mg PO DAILY [facility] Stop: 07/04/23 08:59 Last Admin: 06/07/23 08:34 Dose: 40 mg Polyethylene Glycol (Polyethylene (Miralax) 17 Gm Pack) 17 gm PO DAILY PRN PRN Reason: Constipation Stop: 07/07/23 18:29 Sennosides (Senna 8.6 Mg Tab) 8.6 mg PO QAM [facility] Stop: 07/07/23 18:29 Sertraline HCl (Sertraline Hcl 100 Mg Tablet) 100 mg PO DAILY [facility] Stop: 07/04/23 08:59 Last Admin: 06/07/23 08:33 Dose: 100 mg
[2023-06-07] MEDS: SENNA 8.6 MG TAB PO SCH (20:28)
[2023-06-07] MEDS: oxyCODONE HCL IR 5 MG TAB (IMMEDIATE RELEASE) PO PRN (20:33)
[2023-06-08 07:06] LABS: Hematocrit (blood only) 22.2 % (37.0-47.0); Hemoglobin 7.5 g/dl (12.0-16.0); Mean Corpuscular Hemoglobin 33.5 pg (25.0-34.0); Mean Corpuscular Hgb Conc 33.8 g/dL (32.0-36.0); Mean Corpuscular Volume 99.1 fL (80.0-100.0); Mean Platelet Volume 10.3 fL (9.4-12.4); Platelet Count 94 K/uL (130-400); RDW Coefficient of Variation 13.8 % (11.5-14.5); Red Blood Count 2.24 M/uL (4.20-5.40); White Blood Count 1.84 K/ul (4.8-10.8)
[2023-06-08 07:28] LABS: BUN Creatinine Ratio 18.2 (10-20); Calcium 8.8 mg/dl (8.6-10.3); Creatinine Clr Calc Pharmacy 68.4 ml/min; Est GFR (African American) 111.3 ml/min; Magnesium 1.7 mg/dl (1.7-2.4); Phosphorus 2.2 mg/dl (2.5-4.9); Potassium 4.2 mmol/L (3.5-5.1)
[2023-06-08] MEDS: METOPROLOL TARTRATE 50 MG TAB PO SCH ×2 (08:11→20:55)
[2023-06-08] MEDS: FERROUS SULFATE 325 MG TAB PO SCH (08:11)
[2023-06-08] MEDS: SERTRALINE HCL 100 MG TABLET PO SCH (08:12)
[2023-06-08] MEDS: CYANOCOBALAMIN (B-12) 500 MCG TABLET PO SCH (08:12)
[2023-06-08] MEDS: busPIRone 15 MG TAB PO SCH ×2 (08:12→20:55)
[2023-06-08] MEDS: THIAMINE HCL 100 MG in SYRINGE 9 ML IV SCH (08:12)
[2023-06-08] MEDS: MAGNESIUM OXIDE 400 MG TAB PO SCH (08:12)
[2023-06-08] MEDS: PANTOprazole 40 MG TAB PO SCH (08:12)
[2023-06-08] MEDS: SENNA 8.6 MG TAB PO SCH (08:12)
[2023-06-08] MEDS: FOLIC ACID 1 MG in SYRINGE 9.8 ML IV SCH (08:12)
[2023-06-08] MEDS: cefTRIAXone SODIUM 2,000 MG in DEXTROSE 5 % MINI-B 50 ML IV SCH (08:25)
[2023-06-08] MEDS ORDERED: MAGNESIUM SULFATE / D5W 1 GM/100 ML BAG IV ONE (08:39)
[2023-06-08] MEDS: POT PHOSPHATE MONOBASIC W/ SOD TAB PO SCH ×4 (10:00→20:55)
--- NOTE | 2023-06-08 16:04 | Hospitalist Progress Note ---
Date of Service June 08, 2023 Assessment & Plan (1) Fall: Plan: Pt is a 58 yo female w/ hypomagnesemia, hypokalemia, hypertension, iron deficiency anemia, general anxiety disorder, ongoing alcoholism, rectal cancer currently undergoing chemo presents with falls. Multiple Falls Mild acute superior endplate compression fracture of T12 --Lumbar CT:There is no evidence of acute fracture or malalignment involving the lumbar spine. There is a mild acute superior endplate compression fracture of T12 as above. No significant retropulsion of fragments is seen. Osteopenia with lumbosacral spondylosis and scoliosis as above. -- Appreciate orthopedics input --Conservative management as per Ortho --Continue TLSO brace when up and ambulatory No lifting over 5 pounds as per Ortho Pain control Fall precautions Continue PT OT Needs follow-up with orthopedics in 2 weeks Alcoholism: Monitor for withdrawal. Counseled to quit. Continue thiamine, folic acid Electrolyte abnormalities (hypomagnesemia, hypokalemia)--replace electrolytes as needed Ongoing chemo for rectal cancer--needs follow-up with oncology upon discharge UTI--urine culture grew more than 3 types of organisms. We will complete ceftriaxone course tomorrow Pancytopenia Likely due to chemotherapy, malignancy, alcohol use Monitor CBC Hyponatremia Sodium 128 -> 132 ->133> 137 received IV fluids Monitor sodium levels Rectal cancer Follow-up with oncology as outpatient Hypertension Continue metoprolol Lisinopril held Monitor BP Elevated CPK -Received IVF -CPK levels improved Generalized anxiety disorder Continue Zoloft and buspirone Iron deficiency anemia Continue iron supplements DVT Px: SCDs Re: anemia, thrombocytopenia CODE STATUS Full code Disposition Rehab when accepted Admission and Anticipated Discharge Date Admission Date: June 03, 2023 Subjective Patient is seen and examined at bedside States having generalized weakness Back pain is controlled by using brace Denies any chest pain, dyspnea, nausea, vomiting, abdominal pain Waiting for rehab placement Review of Systems Review of Systems: All systems reviewed & are unremarkable except as noted in Subjective Physical Exam Physical Exam: Physical Exam: Vitals signs as noted above General Appearance:Thin, frail, no apparent distress Head: normocephalic, Atraumatic Eyes: normal inspection, EOMI Neck: supple, Trachea midline Respiratory/Chest: Normal breath sounds, CTA, No accessory muscle use Cardiovascular: S1, S2, No murmur Abdomen/GI:Soft, Non tender, Bowel sounds present Back: +Brace Extremities/Musculoskeletal:normal inspection, no edema, RUE in Cast Neurologic/Psych:AAOX3, grossly no focal neurological deficits Skin: normal color, warm Results & Data Results & Data Vital Signs (Past 12 Hours) Vital Signs Temp Pulse Pulse Resp BP Pulse Ox O2 Del Method 06/08/23 14:06 79 06/08/23 11:42 36.8 C 86 16 119/75 94 Room Air 06/08/23 07:40 36.6 C 83 16 134/78 90 Room Air 06/08/23 06:00 79 Laboratory Results Short CBC 06/08/23 Range/Units 05:59 WBC 1.84 L (4.8-10.8) K/ul Hgb 7.5 L (12.0-16.0) g/dl Hct 22.2 L (37.0-47.0) % Plt Count 94 L (130-400) K/uL BMP 06/08/23 05:59 Sodium 137 Potassium 4.2 Chloride 103 Carbon Dioxide 31 BUN 12 Creatinine 0.66 Glucose 97 Calcium 8.8
[2023-06-08] MEDS: oxyCODONE HCL IR 5 MG TAB (IMMEDIATE RELEASE) PO PRN (20:55)
[2023-06-09 06:33] LABS: Hematocrit (blood only) 21.4 % (37.0-47.0); Hemoglobin 7.3 g/dl (12.0-16.0); Mean Corpuscular Hemoglobin 33.6 pg (25.0-34.0); Mean Corpuscular Hgb Conc 34.1 g/dL (32.0-36.0); Mean Corpuscular Volume 98.6 fL (80.0-100.0); Mean Platelet Volume 10.3 fL (9.4-12.4); Platelet Count 97 K/uL (130-400); RDW Coefficient of Variation 13.7 % (11.5-14.5); RDW Standard Deviation 49.1 fL (36.4-46.3); Red Blood Count 2.17 M/uL (4.20-5.40); White Blood Count 1.65 K/ul (4.8-10.8)
[2023-06-09 06:58] LABS: Calcium 8.7 mg/dl (8.6-10.3); Creatinine Clr Calc Pharmacy 77.8 ml/min; Est GFR (African American) 116.1 ml/min; Est GFR (Non-African American) 100.2 ml/min; Magnesium 1.6 mg/dl (1.7-2.4); Phosphorus 3.2 mg/dl (2.5-4.9); Potassium 3.7 mmol/L (3.5-5.1)
[2023-06-09] MEDS: busPIRone 15 MG TAB PO SCH (08:49)
[2023-06-09] MEDS: POT PHOSPHATE MONOBASIC W/ SOD TAB PO SCH ×2 (08:49→12:31)
[2023-06-09] MEDS: METOPROLOL TARTRATE 50 MG TAB PO SCH (08:49)
[2023-06-09] MEDS: SENNA 8.6 MG TAB PO SCH (08:50)
[2023-06-09] MEDS: PANTOprazole 40 MG TAB PO SCH (08:50)
[2023-06-09] MEDS: FERROUS SULFATE 325 MG TAB PO SCH (08:50)
[2023-06-09] MEDS: SERTRALINE HCL 100 MG TABLET PO SCH (08:50)
[2023-06-09] MEDS: CYANOCOBALAMIN (B-12) 500 MCG TABLET PO SCH (08:50)
[2023-06-09] MEDS: lisinopril 40 MG TAB PO SCH (08:51)
[2023-06-09] MEDS: THIAMINE HCL 100 MG in SYRINGE 9 ML IV SCH (08:51)
[2023-06-09] MEDS: FOLIC ACID 1 MG in SYRINGE 9.8 ML IV SCH (08:51)
[2023-06-09] MEDS ORDERED: MAGNESIUM CHLORIDE W/CALCIUM 64MG DELAYED REL TAB PO SCH (09:00)
[2023-06-09] MEDS ORDERED: MAGNESIUM OXIDE 400 MG TAB PO SCH (09:00)
--- NOTE | 2023-06-09 12:29 | Hospitalist Progress Note ---
Date of Service June 09, 2023 Assessment & Plan (1) Fall: Plan: Pt is a 58 yo female w/ hypomagnesemia, hypokalemia, hypertension, iron deficiency anemia, general anxiety disorder, ongoing alcoholism, rectal cancer currently undergoing chemo presents with falls. Multiple Falls Mild acute superior endplate compression fracture of T12 --Lumbar CT:There is no evidence of acute fracture or malalignment involving the lumbar spine. There is a mild acute superior endplate compression fracture of T12 as above. No significant retropulsion of fragments is seen. Osteopenia with lumbosacral spondylosis and scoliosis as above. -- Appreciate orthopedics input --Conservative management as per Ortho --Continue TLSO brace when up and ambulatory No lifting over 5 pounds as per Ortho Pain control Fall precautions Continue PT OT Needs follow-up with orthopedics in 2 weeks Plan to discharge to rehab facility today Alcoholism: Monitor for withdrawal. Counseled to quit. Continue thiamine, folic acid Electrolyte abnormalities (hypomagnesemia, hypokalemia)--replace electrolytes as needed Ongoing chemo for rectal cancer--needs follow-up with oncology upon discharge UTI--urine culture grew more than 3 types of organisms. Completed ceftriaxone course Pancytopenia Likely due to chemotherapy, malignancy, alcohol use Monitor CBC Hyponatremia Sodium 128 -> 132 ->133> 137 received IV fluids Monitor sodium levels Rectal cancer Follow-up with oncology as outpatient Hypertension Continue metoprolol, Lisinopril Monitor BP Elevated CPK -Received IVF -CPK levels improved Generalized anxiety disorder Continue Zoloft and buspirone Iron deficiency anemia Continue iron supplements DVT Px: SCDs Re: anemia, thrombocytopenia CODE STATUS Full code Disposition Rehab Admission and Anticipated Discharge Date Admission Date: June 03, 2023 Subjective Patient is seen and examined at bedside Back pain is controlled No other new complaints Denies any chest pain, dyspnea, nausea, vomiting, abdominal pain Plan to discharge to rehab facility today Review of Systems Review of Systems: All systems reviewed & are unremarkable except as noted in Subjective Physical Exam Physical Exam: Physical Exam: Vitals signs as noted above General Appearance:Thin, frail, no apparent distress Head: normocephalic, Atraumatic Eyes: normal inspection, EOMI Neck: supple, Trachea midline Respiratory/Chest: Normal breath sounds, CTA, No accessory muscle use Cardiovascular: S1, S2, No murmur Abdomen/GI:Soft, Non tender, Bowel sounds present Back: +Brace Extremities/Musculoskeletal:normal inspection, no edema, RUE in Cast Neurologic/Psych:AAOX3, grossly no focal neurological deficits Skin: normal color, warm Results & Data Results & Data Vital Signs (Past 12 Hours) Vital Signs Temp Pulse Pulse Resp BP Pulse Ox O2 Del Method 06/09/23 11:35 36.4 C L 88 18 121/72 97 Room Air 06/09/23 09:15 Room Air 06/09/23 07:53 37.2 C 76 17 150/77 H 92 Room Air 06/09/23 07:00 74 06/09/23 03:00 36.6 C 77 18 133/78 92 Room Air 06/09/23 02:08 73 Laboratory Results Short CBC 06/09/23 Range/Units 05:30 WBC 1.65 L (4.8-10.8) K/ul Hgb 7.3 L (12.0-16.0) g/dl Hct 21.4 L (37.0-47.0) % Plt Count 97 L (130-400) K/uL BMP 06/09/23 05:30 Sodium 137 Potassium 3.7 Chloride 102 Carbon Dioxide 30 BUN 11 Creatinine 0.58 L Glucose 93 Calcium 8.7
[2023-06-09] MEDS: oxyCODONE HCL IR 5 MG TAB (IMMEDIATE RELEASE) PO PRN (12:30)
--- NOTE | 2023-06-09 12:41 | Discharge Summary ---
Date of Service June 09, 2023 Admission HPI Per Admitting Provider 58-year-old female past medical significant for hypomagnesemia, hypokalemia, hypertension, heart rate deficiency anemia, general anxiety disorder, ongoing alcoholism, rectal cancer currently undergoing chemo presents with falls. Patient states last Tuesday when she after chemo on the driveway she fell down and she need to be helped. Today also at home again she fell backwards hit her head but no loss of consciousness. She feels weak in the legs and goes down. No headache. No dizziness. No blurred visions. No nausea. No cough. No fevers. No chest pain or shortness of breath. No abdominal pain. Normal bowel and bladder movements. Past medical history. As mentioned above Past surgical history. Insertion of central venous catheter. Social history. . Quit smoking 08/2009. Smoked 1 pack a day for 25 years. Alcohol drinking 6-8 beers daily. Currently no drug use. Family history. Mother had diabetes. Brother hypertension. Father hypertension and dialysis Admission Exam Per Admitting Provider Physical Exam Physical Exam: General- Not in distress Head- atraumatic Eyes- PERRL. ENT- oropharynx clear Neck- supple, no JVD. Lungs- clear to auscultation no wheezing or crackles. Heart- regular rhythm; no murmur, no gallop. Abdomen- normal bowel sounds, soft, nontender, no distension. Extremities- no pretibial edema, right upper extremity in cast Neuro- alert, oriented x 3; PERRL, no facial palsy; no dysarthria; non focal. Skin- warm & dry Principal Diagnosis Multiple Falls Mild acute superior endplate compression fracture of T12 Pancytopenia Alcoholism UTI Hyponatremia Rectal cancer Discharge Data Allergies Allergy/AdvReac Type Severity Reaction Status Date / Time No Known Allergies Allergy Verified 04/07/23 11:45 Consultations 06/05/23 08:00 Consult Orthopedic Surgery Routine Procedures Performed Laboratory Results WBC 1.65 K/ul (4.8-10.8) L 06/09/23 05:30 RBC 2.17 M/uL (4.20-5.40) L 06/09/23 05:30 Hgb 7.3 g/dl (12.0-16.0) L 06/09/23 05:30 Hct 21.4 % (37.0-47.0) L 06/09/23 05:30 MCV 98.6 fL (80.0-100.0) 06/09/23 05:30 MCH 33.6 pg (25.0-34.0) 06/09/23 05:30 MCHC 34.1 g/dL (32.0-36.0) 06/09/23 05:30 RDW Std Deviation 49.1 fL (36.4-46.3) H 06/09/23 05:30 RDW Coeff of [place] 13.7 % (11.5-14.5) 06/09/23 05:30 Plt Count 97 K/uL (130-400) L 06/09/23 05:30 MPV 10.3 fL (9.4-12.4) 06/09/23 05:30 Immature Gran % (Auto) 1.1 % 06/04/23 05:26 Neut % (Auto) 85.3 % 06/04/23 05:26 Lymph % (Auto) 9.8 % 06/04/23 05:26 [place] % (Auto) 3.3 % 06/04/23 05:26 Eos % (Auto) 0.5 % 06/04/23 05:26 Baso % (Auto) 0.0 % 06/04/23 05:26 Neut # (Auto) 1.56 K/uL (1.40-6.50) 06/04/23 05:26 Lymph # (Auto) 0.18 K/uL (1.20-3.40) L 06/04/23 05:26 [place] # (Auto) 0.06 K/uL (0.11-0.59) L 06/04/23 05:26 Eos # (Auto) 0.01 K/uL (0.00-0.50) 06/04/23 05:26 Baso # (Auto) 0.00 K/uL (0.00-0.20) 06/04/23 05:26 Immature Gran # (Auto) 0.02 K/uL (0.01-0.20) 06/04/23 05:26 Platelet Estimate Decreased (Normal) L 06/04/23 05:26 RBC Morphology Unremarkable 06/04/23 05:26 PT 11.5 Seconds (9.0-12.0) 06/03/23 14:29 INR 1.1 (0.9-1.1) 06/03/23 14:29 APTT 26.5 Seconds (21.0-31.0) 06/03/23 14:29 PTT Ratio 0.9 06/03/23 14:29 Sodium 137 mmol/L (136-145) 06/09/23 05:30 Potassium 3.7 mmol/L (3.5-5.1) 06/09/23 05:30 Chloride 102 mmol/L (98-107) 06/09/23 05:30 Carbon Dioxide 30 mmol/L (21-32) 06/09/23 05:30 Anion Gap 5 (3-11) 06/09/23 05:30 BUN 11 mg/dl (6-23) 06/09/23 05:30 Creatinine 0.58 mg/dl (0.6-1.2) L 06/09/23 05:30 Est Cr Clr Drug Dosing 77.8 ml/min 06/09/23 05:30 Est GFR ( Amer) 116.1 ml/min 06/09/23 05:30 Est GFR (Non-Af Amer) 100.2 ml/min 06/09/23 05:30 BUN/Creatinine Ratio 19.0 (10-20) 06/09/23 05:30 Glucose 93 mg/dl (70-99(Fasting)) 06/09/23 05:30 Calcium 8.7 mg/dl (8.6-10.3) 06/09/23 05:30 Phosphorus 3.2 mg/dl (2.5-4.9) D 06/09/23 05:30 Magnesium 1.6 mg/dl (1.7-2.4) L 06/09/23 05:30 Total Bilirubin 0.4 mg/dl (0.2-1.0) 06/05/23 05:38 Direct Bilirubin 0.2 mg/dl (0-0.2) 06/04/23 05:26 AST 62 U/L (13-39) H 06/05/23 05:38 ALT 19 U/L (7-52) 06/05/23 05:38 Alkaline Phosphatase 73 U/L (34-104) 06/05/23 05:38 Total Creatine Kinase 439 U/L (26-192) H 06/05/23 05:38 Troponin I High Sens 9.1 pg/ml (0-14) 06/03/23 14:29 Total Protein 5.1 gm/dl (6.0-8.3) L 06/05/23 05:38 Albumin 2.8 gm/dl (3.4-5.0) L 06/05/23 05:38 Globulin 2.3 gm/dl (2.5-4.0) L 06/05/23 05:38 Albumin/Globulin Ratio 1.2 (0.9-2) 06/05/23 05:38 Vitamin B12 402 pg/ml (180-914) 06/04/23 05:26 TSH 2.221 uIu/ml (0.300-4.500) 06/03/23 14:29 Urine Color Yellow 06/06/23 22:35 Urine Appearance Clear (Clear) 06/06/23 22:35 Urine pH 6.5 (4.5-7.5) 06/06/23 22:35 Ur Specific [place] 1.010 (1.000-1.030) 06/06/23 22:35 Urine Protein Negative (Negative) 06/06/23 22:35 Urine Glucose (UA) Negative (Negative) 06/06/23 22:35 Urine Ketones Negative (Negative) 06/06/23 22:35 Urine Blood Negative (Negative) 06/06/23 22:35 Urine Nitrite Negative (Negative) 06/06/23 22:35 Urine Bilirubin Negative (Negative) 06/06/23 22:35 Urine Urobilinogen Negative (Negative) 06/06/23 22:35 Ur Leukocyte Esterase Negative (Negative) 06/06/23 22:35 Urine WBC (Auto) >30 /hpf (0-5) H 06/04/23 00:45 Urine RBC (Auto) 0-4 /hpf (0-4) 06/04/23 00:45 U Hyaline Cast (Auto) 1-5 /lpf (0-5) 06/04/23 00:45 U Epithel Cells (Auto) 10-20 /lpf (0-5) H 06/04/23 00:45 Urine Bacteria (Auto) Negative (Negative) 06/04/23 00:45 Impressions Chest X-Ray 06/03/23 14:07 XR chest 1V not portable HISTORY: 58 years-old Female Weakness acute weakness COMPARISON: PET CT 01/26/2023 TECHNIQUE: AP view of the chest FINDINGS: Cardiac silhouette is enlarged. Right IJ Nvpcpt-b-Ynex catheter. No pneumothorax, pleural effusion, airspace consolidation or pulmonary edema. Sigmoid thoracolumbar scoliosis. Healed chronic right-sided rib fractures. Bones appear grossly intact. IMPRESSION: Cardiomegaly without acute process. ACT 112: Negative or not required by law. The above report was generated using voice recognition software. It may contain grammatical, syntax or spelling errors. Electronically signed by: Calderon Sky M.D. 06/03/2023 3:[address] 06/03/23 18:09 CT SCAN OF THE CERVICAL SPINE CLINICAL HISTORY: Fall. COMPARISON STUDY: CT of the cervical spine dated 10/22/2013. TECHNIQUE: CT scan of the cervical spine is performed from the skull base to the upper thoracic spine. Images are reviewed in the axial, sagittal, and coronal planes. IV contrast was not administered for this examination. A dose lowering technique was utilized adhering to the principles of ALARA. FINDINGS: Skeletal structures: The skeletal structures are well mineralized. There is no evidence of fracture or subluxation involving the cervical spine. Vertebral body height and alignment are maintained. There is straightening of the cervical lordosis. Small anterior osteophytes are seen throughout. The odontoid process and lateral masses are intact. The atlantoaxial articulation is preserved noting productive degenerative change. The spinous processes appear intact. There is mild multilevel facet arthropathy. Intervertebral discs: There is mild/moderate disc space narrowing at C5-C6 and C6-C7. Central canal: Posterior disc osteophyte complexes at C4-C5, C5-C6, and C6-C7 may contribute to acquired compromise of the central canal. Soft tissues: The prevertebral and paraspinous soft tissues are within normal limits. A central venous infusion port catheter is partially visualized at the right thoracic inlet. Calvarium: The visualized calvarium at the skull base appears intact. Brain parenchyma: Partially visualized brain parenchyma at the skull base is within normal limits. Sinuses and mastoids: The visualized paranasal sinuses are clear. The mastoid air cells are well pneumatized. Cerumen is noted in the external auditory canals. Lung apices: Clear as visualized. IMPRESSION: 1. There is no evidence of cervical spine fracture or subluxation. 2. Spondylotic change as above. ACT 112: Negative or not required by law. Electronically signed by: Adam Guadarrama M.D. 06/03/2023 6:[address] 06/03/23 18:09 CT SCAN OF THE BRAIN WITHOUT IV CONTRAST CLINICAL HISTORY: Fall. COMPARISON STUDY: CT of the brain dated 12/26/2022. TECHNIQUE: Unenhanced axial CT scan of the brain is performed from the vertex to the skull base. A dose lowering technique was utilized adhering to the principles of ALARA. CT DOSE: 1035.89 mGy.cm FINDINGS: Brain parenchyma: There is age-related involutional change noting minimal microangiopathic disease. There is no hemorrhage, mass effect, or evidence of acute territorial ischemia by CT criteria. Yeh-white matter differentiation is preserved. No extra-axial fluid collection is seen. Ventricles, sulci, cisterns: Prominent secondary to involutional change. Intracranial vasculature: There is mild atherosclerotic calcification of the cavernous carotid arteries. Calvarium: There is no depressed calvarial fracture. Sinuses and mastoids: The visualized paranasal sinuses are clear. The mastoid air cells are well pneumatized. Orbits: The bony orbits are grossly intact. IMPRESSION: There is no hemorrhage, mass effect, or evidence of acute territorial ischemia by CT criteria. ACT 112: Negative or not required by law. Electronically signed by: Adam Guadarrama M.D. 06/03/2023 6:[address] 06/03/23 19:21 CT SCAN OF THE LUMBAR SPINE WITHOUT IV CONTRAST CLINICAL HISTORY: Fall. Low back pain. COMPARISON STUDY: CT scan of the lumbar spine dated 10/22/2013. Abdominal CT dated 12/27/2022. TECHNIQUE: CT scan of the lumbar spine is performed from the lower thoracic spine to the sacrum. Images are reviewed in the axial, sagittal, and coronal planes. IV contrast was not administered for this examination. A dose lowering technique was utilized adhering to the principles of ALARA. CT DOSE: 1027.1 mGy.cm FINDINGS: The skeletal structures are osteopenic. There is no evidence of acute fracture or malalignment involving the lumbar spine. There is a mild acute superior endplate compression fracture of T12 which is new from 12/27/2022. There is no evidence of posterior element involvement or significantly retropulsed fragments. Mild paravertebral edema is seen at this level. Vertebral body height and alignment are maintained throughout the lumbar spine. There is moderate lumbar levocurvature centered at L3. Large anterior and lateral marginal osteophytes are seen throughout. The transverse and spinous processes are intact. There is no spondylolysis. No lytic or blastic lesion is seen. There is moderate disc space narrowing with endplate sclerosis noted at L3-L4. Mild disc space narrowing is seen at the remaining lumbar levels. Posterior disc osteophyte complexes are seen at most lumbar levels. There is no CT evidence of high-grade central canal stenosis. Right lateral disc bulges at L3-L4 and L4-L5 contribute subarticular stenosis and Main impingement on the exiting right L3 and L4 nerve roots. Facet arthropathy is noted in the lower lumbar region. There is chronic posttraumatic deformity of the sacrum. There is fatty atrophy of the paraspinous musculature. There is moderate atherosclerotic calcification of the abdominal aorta which is normal in course and caliber. No retroperitoneal lymphadenopathy is seen. IMPRESSION: 1. There is no evidence of acute fracture or malalignment involving the lumbar spine. 2. There is a mild acute superior endplate compression fracture of T12 as above. No significant retropulsion of fragments is seen. 3. Osteopenia with lumbosacral spondylosis and scoliosis as above. ACT 112: Negative or not required by law. Electronically signed by: Adam Guadarrama M.D. 06/03/2023 10:[address] 06/03/23 19:23 CT SCAN OF THE PELVIS WITHOUT IV CONTRAST CLINICAL HISTORY: Fall. Left hip pain. COMPARISON STUDY: Pelvic CT dated 01/08/2023. TECHNIQUE: CT scan of the pelvis is performed from the pelvic inlet to the pro ximal femora. Images are reviewed in the axial, sagittal, and coronal planes. IV contrast was not administered for this examination. A dose lowering technique was utilized adhering to the principles of ALARA. FINDINGS: The skeletal structures are osteopenic. No acute fracture is seen involving the hips or bony pelvis. There is chronic posttraumatic deformity of the sacrum. Arthritic change is seen in the hips and sacroiliac joints. There is no evidence of avascular necrosis of the femoral heads. No lytic or blastic lesion is seen. Lumbosacral spondylosis and scoliosis is partially imaged. There is generalized atrophy of the regional musculature. The bladder wall is thickened and there is surrounding inflammation. The uterus and adnexa are normal as visualized. Presacral soft tissue induration has modestly increased from previous. Imaged portions of the bowel shows no evidence of obstruction. No intraperitoneal free air or abdominal ascites is seen in the pelvis. There is no pelvic sidewall or inguinal lymphadenopathy. IMPRESSION: 1. There is no evidence of acute fracture involving the hips or bony pelvis. 2. There is chronic posttraumatic deformity of the sacrum. 3. Findings suggest cystitis. Correlate with clinical findings and urinalysis. ACT 112: Negative or not required by law. Electronically signed by: Adam Guadarrama M.D. 06/03/2023 10:44 PM Ordered Studies 06/03/23 18:09 CT cervical spine wo con Stat CT head/brain wo con Stat 06/03/23 19:21 CT lumbar spine wo con Stat 06/03/23 19:23 CT pelvis wo con Stat Hospital Course (1) Fall: Pt is a 58 yo female w/ hypomagnesemia, hypokalemia, hypertension, iron deficiency anemia, general anxiety disorder, ongoing alcoholism, rectal cancer currently undergoing chemo presents with falls. Multiple Falls Mild acute superior endplate compression fracture of T12 --Lumbar CT:There is no evidence of acute fracture or malalignment involving the lumbar spine. There is a mild acute superior endplate compression fracture of T12 as above. No significant retropulsion of fragments is seen. Osteopenia with lumbosacral spondylosis and scoliosis as above. -- Appreciate orthopedics input --Conservative management as per Ortho --Continue TLSO brace when up and ambulatory No lifting over 5 pounds as per Ortho Pain control Fall precautions Continue PT OT Needs follow-up with orthopedics in 2 weeks Plan to discharge to rehab facility today Alcoholism: Monitor for withdrawal. Counseled to quit. Continue thiamine, folic acid Electrolyte abnormalities (hypomagnesemia, hypokalemia)--replace electrolytes as needed Ongoing chemo for rectal cancer--needs follow-up with oncology upon discharge UTI--urine culture grew more than 3 types of organisms. Completed ceftriaxone course Pancytopenia Likely due to chemotherapy, malignancy, alcohol use Monitor CBC Hyponatremia Sodium 128 -> 132 ->133> 137 received IV fluids Monitor sodium levels Rectal cancer Follow-up with oncology as outpatient Hypertension Continue metoprolol, Lisinopril Monitor BP Elevated CPK -Received IVF -CPK levels improved Generalized anxiety disorder Continue Zoloft and buspirone Iron deficiency anemia Continue iron supplements DVT Px: SCDs Re: anemia, thrombocytopenia CODE STATUS Full code Disposition Rehab Total Time Total Time Spent Total Time Spent (In Minutes): 55 minutes Discharge Plan Discharge Items Patient Disposition: Transfer Inpatient Rehab Fac Reason For Visit: FALL, ALCOHOLISM Discharge Diagnosis: Multiple Falls Mild acute superior endplate compression fracture of T12 Pancytopenia Alcoholism UTI Hyponatremia Rectal cancer Activity: Per Instructions section Exercise/Sports: Gradually increase as tolerated Non-emergency contact: Primary Care Provider and Surgeon Call non-emergency contact if: you have any medication questions, your symptoms worsen, your pain is concerning for you and you have a fever Follow-up/Referrals: Shelli Ritter MD [Primary Care Provider] - Diet: Heart Healthy Addtl Attending Provider Instructions: Follow-up with your primary care physician in 1 week upon discharge from rehab facility Follow-up with your orthopedic surgeon Dr. Baker in 2 weeks as advised Seek immediate medical attention if your symptoms reoccur or worsen Please take all medications as instructed on discharge list below. Please call if you have any questions or problems. You can reach a [facility] hospitalist on duty at [facility] 24 hours a day by calling [phone] [employer] Director Provider Instructions: --use TLSO brace when up and ambulatory. May remove when in a seated position and sleeping/lying down. --No lifting over 5 pounds. -- Follow-up with orthopedics in 2 weeks as outpatient Pending Studies at Discharge: No Stand-Alone Forms: My [facility] Skilled Items Patient informed of condition?: Yes DNR: No Discharge Level of Care: Acute rehab Communicable Disease: No Discharge Prognosis: Stable Lines: None Urinary Catheter: No Medications and DC Order Prescriptions: New cyanocobalamin (vitamin B-12) 500 mcg Tablet 500 mcg PO QAM Qty: 0 0RF oxycodone 5 mg Tablet 5 mg PO Q4H PRNQty: 0 0RF polyethylene glycol 3350 [Miralax] 17 gram Powder In Packet 17 g PO DAILY PRN (Reason: constipation) Qty: 0 0RF magnesium oxide 400 mg (241.3 mg magnesium) Tablet 400 mg PO QAM Qty: 30 0RF Continued sertraline 100 mg tablet 100 mg PO DAILY thiamine HCl (vitamin B1) 100 mg tablet 100 mg PO DAILY pantoprazole 40 mg tablet,delayed release (DR/EC) 40 mg PO DAILY ferrous sulfate 325 mg (65 mg iron) tablet 325 mg PO DAILY metoprolol tartrate 50 mg tablet 50 mg PO BID folic acid 1 mg tablet 1 mg PO DAILY lisinopril 40 mg tablet 40 mg PO DAILY buspirone 15 mg tablet 15 mg PO BID Discharge Orders: Discharge Order (Routine); Ordered 06/09/23 Ordered By: Thuan Cade Admission Data Admit Date/Time: 06/03/23 20:41 Attending Provider: Thuan Cade Admit Provider: Angel Jordan Primary Care Provider: Shelli Ritter Other Providers: Puma Baker ; [facility] ; [place] ; [facility]
== END 2023-06-09 14:47 | DRG 551 ==
LOC: ED 13:42 → 2N 20:41 → SUATTDRO 20:41 → 2N 21:26
DX: F41.1 Generalized anxiety disorder; Y92.014 Private driveway to single-family (private) house as the place of occurrence of the external cause; F10.20 Alcohol dependence, uncomplicated; D61.810 Antineoplastic chemotherapy induced pancytopenia; N39.0 Urinary tract infection, site not specified; E83.42 Hypomagnesemia; C20 Malignant neoplasm of rectum; E87.6 Hypokalemia; S22.080A Wedge compression fracture of T11-T12 vertebra, initial encounter for closed fracture; I10 Essential (primary) hypertension; W18.30XA Fall on same level, unspecified, initial encounter; E87.1 Hypo-osmolality and hyponatremia; R29.6 Repeated falls; Z87.891 Personal history of nicotine dependence; D50.9 Iron deficiency anemia, unspecified

== ENCOUNTER 2024-03-22 13:41 | Inpatient (IN) ==
[2024-03-22 14:37] LABS: Basophils # (auto) 0.01 K/uL (0.00-0.20); Basophils % (auto) 0.3 %; Eosinophils # (auto) 0.01 K/uL (0.00-0.50); Eosinophils % (auto) 0.3 %; Hematocrit (blood only) 26.6 % (37.0-47.0); Hemoglobin 8.9 g/dl (12.0-16.0); Immature Granulocytes # (auto) 0.01 K/uL (0.01-0.20); Immature Granulocytes % (auto) 0.3 %; Lymphocytes # (auto) 0.47 K/uL (1.20-3.40); Mean Corpuscular Hemoglobin 30.1 pg (25.0-34.0); Mean Corpuscular Hgb Conc 33.5 g/dL (32.0-36.0); Mean Corpuscular Volume 89.9 fL (80.0-100.0); Mean Platelet Volume 9.5 fL (9.4-12.4); Monocytes # (auto) 0.32 K/uL (0.11-0.59); Monocytes % (auto) 10.9 %; Neutrophils # (auto) 2.11 K/uL (1.40-6.50); Neutrophils % (auto) 72.2 %; Platelet Count 151 K/uL (130-400); RDW Coefficient of Variation 13.5 % (11.5-14.5); RDW Standard Deviation 44.1 fL (36.4-46.3); Red Blood Count 2.96 M/uL (4.20-5.40); White Blood Count 2.93 K/ul (4.8-10.8)
[2024-03-22 14:59] LABS: Albumin Globulin Ratio 1.4 (0.9-2); Albumin Level 3.7 gm/dl (3.4-5.0); BUN Creatinine Ratio 11.8 (10-20); Bilirubin,Total 0.6 mg/dl (0.2-1.0); Calcium 9.3 mg/dl (8.6-10.3); Creatinine Clr Calc Pharmacy 87.4 ml/min; Est GFR (African American) 120.3 ml/min; Est GFR (Non-African American) 103.8 ml/min; Globulin 2.7 gm/dl (2.5-4.0); Magnesium 1.3 mg/dl (1.7-2.4); Potassium 3.2 mmol/L (3.5-5.1); Total Protein 6.4 gm/dl (6.0-8.3)
--- NOTE | 2024-03-22 14:59 | Emergency Department Note ---
History of Present Illness General Chief complaint: Leg Weakness, Bilateral Time Seen by Provider: 03/22/24 14:38 History of Present Illness Maximum Pain Intensity: 1 This is a 59-year-old female that presents to the emergency department via EMS with complaints of "unable to walk x 4 days, weakness, diarrhea". The patient notes that 3 to 4 days ago she went from being able to walk with assistance now to not being able to walk as her legs are giving out on her and she feels weak. She also notes diarrhea and vomiting. There is blood in the stool. She notes colon cancer history and stopped treatment in August. This was her own decision. She notes that she was undergoing chemo and radiation but did not like the way it felt and was "sick of being sick". The patient is unsure of cancer staging. She was to have abdominal surgery for the cancer but did not. She denies any associated fever. She notes that she has decreased her amount of beer intake. She is now drinking about 6 "Pounders" of beer daily. Last drink earlier today. No speech trouble or weakness. No bowel or bladder incontinence. Patient notes frequent falls over the past few days. Last fall 2 days ago. Chronic back pain, nothing new. Home Medications Medication Instructions Recorded Confirmed Type buspirone 15 mg tablet 15 mg PO BID 06/04/23 03/22/24 History folic acid 1 mg tablet 1 mg PO DAILY 06/04/23 03/22/24 History lisinopril 40 mg tablet 40 mg PO DAILY 06/04/23 03/22/24 History metoprolol tartrate 50 mg tablet 50 mg PO BID 06/04/23 03/22/24 History pantoprazole 40 mg tablet,delayed 40 mg PO DAILY 06/04/23 03/22/24 History release sertraline 100 mg tablet 100 mg PO DAILY 06/04/23 03/22/24 History magnesium oxide 400 mg (241.3 mg 400 mg PO QAM #30 tabs 06/09/23 03/22/24 Rx magnesium) tablet polyethylene glycol 3350 17 gram 17 g PO DAILY PRN constipation #0 06/09/23 03/22/24 Rx oral powder packet (Miralax) ea Allergies Allergy/AdvReac Type Severity Reaction Status Date / Time No Known Allergies Allergy Verified 03/22/24 17:36 Past Med/Surg History Problem List Hypokalemia (Acute) Weakness generalized (Acute) Frequent falls (Acute) T12 compression fracture Hypomagnesemia (Acute) Weakness (Acute) Closed fracture of right distal radius (Acute) Fall (Acute) Rectal cancer Bipolar affect, depressed Essential hypertension Acute electrocardiogram changes GI bleeding Alcohol abuse Acute GI bleeding (Acute) Anemia (Acute) Hyponatremia (Acute) Seizure (Chronic) Medical History History of peptic ulcer Feeling suicidal Depression Anxiety Fracture of lumbar spine Surgical History H/O colonoscopy H/O esophagogastroduodenoscopy S/P D&C (status post dilation and curettage) Family History Family/Other Cancer brain and lung from separate female cousins Social History Smoking Status: Former smoker Tobacco Type: Cigarettes Second Hand Exposure: No; Do You Dip or Chew Tobacco: No; Hx Alcohol Use: Yes Alcohol type: beer Alcohol Intake Frequency: 4 or More x per/Week Alcohol Intake Frequency Comment: 6-9 16oz beer/day Hx Substance Use: No Preferred Language: Luxembourger Communication Ability: Effective Visual Impairment: No Limitations Hearing Ability: Normal Personnel Scheduler Required: No Beliefs That Will Affect Care: None Current Living Situation: Spouse Current Living Situation Comment: Home current occupational status: unemployed Other Information That Helps Us Care for You: No Feels Safe at Home: Yes Safety Concerns: Feels Safe At This Time during the past year weight has: remained stable Assistive Devices: Brace/Splint/Immobilizer, Cane, Glasses, Walker and Wheelchair Review of Systems A total of 10 systems reviewed and were otherwise negative Physical Exam Vital Signs Vital Signs - 24 hr 03/22/24 13:50 03/22/24 13:57 03/22/24 15:03 Temperature 36.7 C Temperature Source Oral Pulse Rate 77 72 74 Pulse Rate from SpO2 Sensor 74 Pulse Rhythm Regular Respiratory Rate 19 18 17 Respiratory Effort / Characteristics Non-Labored Spontaneous Respiratory Depth Normal Respiratory Pattern Regular Blood Pressure 161/80 H 131/109 H Blood Pressure Mean 107 116 Pulse Oximetry 99 95 100 Oxygen Delivery Method Room Air Room Air Room Air Sepsis Recent Fever Within 48 Hours No Sepsis New/Unexplained Change in Mental Status N/A Sepsis Action Taken by Nursing No Action Required 03/22/24 15:45 03/22/24 16:11 03/22/24 16:11 Temperature Temperature Source Pulse Rate Pulse Rate from SpO2 Sensor 75 Pulse Rhythm Respiratory Rate 14 Respiratory Effort / Characteristics Respiratory Depth Respiratory Pattern Blood Pressure 174/78 H 174/78 H Blood Pressure Mean 124 124 Pulse Oximetry 99 Oxygen Delivery Method Room Air Sepsis Recent Fever Within 48 Hours Sepsis New/Unexplained Change in Mental Status Sepsis Action Taken by Nursing 03/22/24 17:06 Temperature Temperature Source Pulse Rate 79 Pulse Rate from SpO2 Sensor Pulse Rhythm Respiratory Rate 18 Respiratory Effort / Characteristics Respiratory Depth Respiratory Pattern Blood Pressure 159/120 H Blood Pressure Mean 133 Pulse Oximetry Oxygen Delivery Method Sepsis Recent Fever Within 48 Hours Sepsis New/Unexplained Change in Mental Status Sepsis Action Taken by Nursing VITAL SIGNS - Vital signs and nursing notes were reviewed. Stable, afebrile. GENERAL -59-year-old female appearing her stated age who is in no acute distress, dry appearing. Communicates well with provider and answers questions appropriately. SKIN - Without rashes. HEAD - NC/AT. EYES - PERRL with EOMI bilaterally. Sclera anicteric. EARS - No deformities of external structures noted on gross examination bilaterally. External auditory canals without discharge or otorrhea. Tympanic membranes pearly miles without retraction or bulging. No fluid or purulent material visualized behind the TM. Handle of malleus, umbo, cone of light, pars tensa/flaccid all easily visualized. NOSE - Midline and without cyanosis. No epistaxis or purulent drainage noted. Septum midline without deviation or septal hematoma noted. MOUTH/OROPHARYNX - Without perioral cyanosis. Dry mucous membranes. Tongue midline with equal elevation of palate bilaterally. No tonsillar hypertrophy, erythema, or exudates noted. Fair dentition noted. NECK - Neck with FROM. Supple to palpation. No nuchal rigidity. LUNGS - Chest wall symmetric without accessory muscle use, intercostals retractions, or central cyanosis. Normal vesicular breath sounds CTA B/L. No wheezes, rales, or rhonchi appreciated. CARDIAC - RRR ABDOMEN - Abdominal contour normal without pulsations or visible masses. BS normoactive all four quadrants. No tenderness, palpable masses, hepatosplenomegaly, or ascites noted. EXTREMITIES - No clubbing or peripheral cyanosis. +5/5 strength noted in UE/LE bilaterally. NEUROLOGIC - Cranial nerves II through XII grossly intact. PSYCH - A&Ox3 and cooperates fully with examiner. Pt is very pleasant and interacts well with examiner. Course Administered Medications Buspirone HCl (Buspirone 15 Mg Tab) 15 mg PO BID [facility] Stop: 04/21/24 20:59 Last Admin: 03/22/24 20:26 Dose: 15 mg Documented By: SHAREE Potassium Chloride/Sodium Chloride (Normal Saline W/20 Meq Kcl) 20 meq in 1,000 mls @ 80 mls/hr IV .[id number] [facility]; Protocol Stop: 04/21/24 19:29 Last Admin: 03/22/24 20:00 Dose: 80 mls/hr Documented By: SHAREE Thiamine HCl 100 mg/ Syringe 10 mls @ 2 [facility] [place] Stop: 04/21/24 19:59 Last Admin: 03/22/24 20:27 Dose: 2 mls/min Documented By: SHAREE Lidocaine (Lidocaine 5% 1 Patch) 1 [facility] [place] Stop: 04/21/24 19:44 Last Admin: 03/22/24 22:43 Dose: Not Given Documented By: JASON Magnesium Oxide (Magnesium Oxide 400 Mg Tab) 400 mg PO BID [facility] Stop: 04/21/24 20:59 Last Admin: 03/22/24 20:25 Dose: 400 mg Documented By: SHAREE Metoprolol Tartrate (Metoprolol Tartrate 50 Mg Tab) 50 mg PO BID [facility] Stop: 04/21/24 20:59 Last Admin: 03/22/24 20:26 Dose: 50 mg Documented By: SHAREE Miscellaneous (Remove Lidoderm Patch) 1 each N/A DAILY@2100 [facility] Stop: 04/21/24 20:59 Last Admin: 03/22/24 22:44 Dose: Not Given Documented By: JASON Discontinued Medications Gabapentin (Gabapentin 600 Mg Tab) 1,200 mg PO NOW ONE Stop: 03/22/24 19:35 Last Admin: 03/22/24 20:15 Dose: 1,200 mg Documented By: SHAREE Hydralazine HCl (Hydralazine Hcl 20 Mg/Ml Vial) 5 mg IV NOW ONE Stop: 03/22/24 20:38 Last Admin: 03/22/24 20:48 Dose: 5 mg Documented By: SHAREE Multivitamins 10 ml/ Thiamine HCl 100 mg/ Folic Acid 1 mg/Sodium Chloride 1,011.2 mls @ 500 mls/hr IV .Q2H2M ONE Stop: 03/22/24 16:50 Last Infusion: 03/22/24 16:20 Dose: Infused Documented By: Admin: 03/22/24 15:26 Dose: 500 mls/hr Documented By: SHAREE Magnesium Sulfate/Dextrose (Magnesium Sulfate / D5w) 1 gm in 100 mls @ 100 mls/hr IV NOW STA Stop: 03/22/24 17:43 Last Infusion: 03/22/24 19:04 Dose: Infused Documented By: Admin: 03/22/24 17:24 Dose: 100 mls/hr Documented By: SHAREE Potassium Chloride (K Chivo / Wtr) 10 meq in 100 mls @ 100 mls/hr IV ONE ONE Stop: 03/22/24 17:42 Last Infusion: 03/22/24 19:04 Dose: Infused Documented By: Admin: 03/22/24 17:24 Dose: 100 mls/hr Documented By: SHAREE Magnesium Sulfate/Dextrose (Magnesium Sulfate / D5w) 1 gm in 100 mls @ 100 mls/hr IV NOW STA Stop: 03/22/24 18:53 Last Infusion: 03/22/24 20:43 Dose: Infused Documented By: Admin: 03/22/24 19:04 Dose: 100 mls/hr Documented By: SHAREE Ioversol (Optiray 320 100ml) 94 ml IV ONCE ONE Stop: 03/22/24 16:03 Last Admin: 03/22/24 16:02 Dose: 94 ml Documented By: DAVID Potassium Chloride (Potassium Chloride Crtab 20 Meq Tabcr) 40 meq PO NOW STA Stop: 03/22/24 17:54 Last Admin: 03/22/24 18:32 Dose: 40 meq Documented By: TRINIDAD Medical Decision Making Laboratory Data 03/22/24 20:47 03/22/24 20:47 Lab Results 03/22/24 Range/Units 14:06 WBC 2.93 L (4.8-10.8) K/ul RBC 2.96 L (4.20-5.40) M/uL Hgb 8.9 L (12.0-16.0) g/dl Hct 26.6 L (37.0-47.0) % MCV 89.9 (80.0-100.0) fL MCH 30.1 (25.0-34.0) pg MCHC 33.5 (32.0-36.0) g/dL RDW Std Deviation 44.1 (36.4-46.3) fL RDW Coeff of Kend[place] 13.5 (11.5-14.5) % Plt Count 151 (130-400) K/uL MPV 9.5 (9.4-12.4) fL Immature Gran % (Auto) 0.3 % Neut % (Auto) 72.2 % Lymph % (Auto) 16.0 % [place] % (Auto) 10.9 % Eos % (Auto) 0.3 % Baso % (Auto) 0.3 % Neut # (Auto) 2.11 (1.40-6.50) K/uL Lymph # (Auto) 0.47 L (1.20-3.40) K/uL [place] # (Auto) 0.32 (0.11-0.59) K/uL Eos # (Auto) 0.01 (0.00-0.50) K/uL Baso # (Auto) 0.01 (0.00-0.20) K/uL Immature Gran # (Auto) 0.01 (0.01-0.20) K/uL PT 11.0 (9.0-12.0) Seconds INR 1.0 (0.9-1.1) APTT 30 (21-31) Seconds PTT Ratio 1.1 Sodium 126 L (136-145) mmol/L Potassium 3.2 L (3.5-5.1) mmol/L Chloride 92 L (98-107) mmol/L Carbon Dioxide 23 (21-32) mmol/L Anion Gap 11 (3-11) BUN 6 (6-23) mg/dl Creatinine 0.51 L (0.6-1.2) mg/dl Est Cr Clr Drug Dosing 87.4 ml/min Est GFR ( Amer) 120.3 ml/min Est GFR (Non-Af Amer) 103.8 ml/min BUN/Creatinine Ratio 11.8 (10-20) Glucose 88 (70-99(Fasting)) mg/dl Osmolality 265 L (280-300) mOsm/kg Calcium 9.3 (8.6-10.3) mg/dl Phosphorus 3.7 (2.5-4.9) mg/dl Magnesium 1.3 L (1.7-2.4) mg/dl Total Bilirubin 0.6 (0.2-1.0) mg/dl AST 80 H (13-39) U/L ALT 19 (7-52) U/L Alkaline Phosphatase 93 (34-104) U/L Troponin I High Sens 7.5 (0-14) pg/ml Total Protein 6.4 (6.0-8.3) gm/dl Albumin 3.7 (3.4-5.0) gm/dl Globulin 2.7 (2.5-4.0) gm/dl Albumin/Globulin Ratio 1.4 (0.9-2) Lipase 35 (11-82) U/L TSH 3.342 (0.300-4.500) uIu/ml Ethyl Alcohol mg/dL 15.9 H (<10.0) mg/dl Imaging Data Radiologist's Impression: Chest X-Ray 03/22/24 13:57 XR chest 1V portable CLINICAL HISTORY: Weakness TECHNIQUE: Single frontal radiograph of the chest was obtained. Comparison: Comparison is made to chest radiograph 06/03/2023 FINDINGS: A port catheter is seen. Cardiomegaly is noted. The lungs are clear. No evidence of pleural effusion or pneumothorax. IMPRESSION: No acute chest disease. ACT 112: Negative or not required by law. Electronically signed by: Behzad Giron M.D. 03/22/2024 2:59 PM Abdomen/Pelvis CT 03/22/24 14:49 CT abd pelvis IV con only CLINICAL HISTORY: Colon CA, diarrhea, blood in stool, weakness TECHNIQUE: Helical axial images of the abdomen and pelvis were obtained and displayed. Automated dose lowering techniques and/or adjustment according to patient size were utilized for this exam. This exam was performed with intravenous contrast. CT DOSE: 1272.45 mGy.cm COMPARISON: Comparison is made to CT pelvis 06/03/2023 FINDINGS: Lower chest: No acute abnormality. Liver: Unremarkable. No focal lesions are seen. Gallbladder and biliary tree: Gallbladder polyp measures up to 4 mm. No intra- or extrahepatic biliary ductal dilation. Pancreas: Unremarkable, no focal lesions. Spleen: Unremarkable. Adrenals: Unremarkable. Kidneys and ureters: There is thickening and enhancement of the right ureter without evidence of obstructive stone/mass. Bladder: Diffuse homogeneous wall thickening is seen. Reproductive organs: Unremarkable. Bowel: Unremarkable. Lymph nodes Retroperitoneal: Unremarkable. Pelvic: Unremarkable. Mesenteric: Unremarkable. Peritoneum: Normal. Vessels: Atherosclerotic calcifications are seen. Abdominal wall: Unremarkable. Bones: Multilevel degenerative changes are seen with numerous compression deformities most prominently in T12 and L1. Scattered lytic and sclerotic foci are seen. IMPRESSION: 1. Compared to exam of 2022, there is significant progression of compression deformities of L5, L1, and T12. There is a likely acute to subacute fracture of the anterior aspect of the T12 vertebral body. 2. Otherwise no acute abnormalities are seen. ACT 112: Negative or not required by law. Electronically signed by: Behzad Giron M.D. 03/22/2024 4:[address] 03/22/24 14:49 CT head/brain wo con CLINICAL HISTORY: 59 years-old Female with falls, weakness. Acute head trauma status post fall TECHNIQUE: Multiple axial CT images of the head were obtained without contrast. A dose lowering technique was utilized adhering to the principles of ALARA. COMPARISON: Head CT 06/03/2023 FINDINGS: No acute intracranial hemorrhage, midline shift, intracranial mass, hydrocephalus, territorial ischemia or abnormal extra-axial collection. Involutional changes with bifrontal atrophy redemonstrated. Probable underlying chronic microvascular ischemic disease. Motion degraded exam. The calvarium is intact. The paranasal sinuses, mastoid air cells, and middle ear cavities are clear. IMPRESSION: No acute intracranial abnormality or calvarial fracture. ACT 112: Negative or not required by law. The above report was generated using voice recognition software. It may contain grammatical, syntax or spelling errors. Electronically signed by: Calderon Sky M.D. 03/22/2024 4:17 PM [facility] Narrative Patient was seen and evaluated as above in room A04. Review was performed of nursing notes and vital signs. I did review pertinent previous visits and patient history. After obtaining a thorough history and physical examination the above work up was performed. Patient presents to us today for assessment of nausea, vomiting, diarrhea, frequent falls, weakness to the point where she is not able to stand/ambulate for the past 4 days. Patient notes ongoing alcohol use, but has decreased intake now down to 6 "pounder" beers per day. She notes colon cancer history of as well but stopped doing chemo/radiation she believes in August of this year because she was "sick of being sick". Patient is unsure of cancer staging. She does note some blood in the stool but believes this to be secondary to the cancer. On assessment she is well-appearing but clinically dry. Options of care were discussed with the patient. IV access was established. Labs were drawn. EKG was performed revealing sinus rhythm at a rate of 82 bpm. QTc 434. QRS 66. Poor baseline noting artifact. She has had vomiting and diarrhea as of recent. At this time we will proceed with adequate IV hydration to replenish what was lost through vomiting and diarrhea. IV fluids ordered, however I did order this as a banana bag including multivitamins, thiamine and folic acid noting the patient's comorbidities and social history. However, electrolytes will need to be monitored closely but I do believe that the hydration at this time is indicated noting volume loss reported by the patient and her clinically dry appearance. Laboratory studies resulted revealing decreased WBC at 2.93, hemoglobin 8.9 which is actually improved compared to previous. No thrombocytopenia. There is hyponatremia noted 126, hypokalemia 3.2, creatinine 0.51. Hypomagnesemia 1.3. AST elevation at 80. TSH reveals euthyroid state. Alcohol level 15.9. CT scan of the head was obtained and was essentially negative for acute process. Chest x-ray per my interpretation is negative for acute process. CT scan of the abdomen pelvis was performed revealing compression deformities with acute/subacute findings. I did call with Dr. Hurtado of radiology regarding the patient's CT scan noting the previous CT scan of last year revealing malignant findings. Addendum was added by Dr. Giron noting the stranding likely on a postradiation basis. In regard to the spine, patient is mildly tender over the spine. Nothing to suggest cord injury clinically. The patient does have a serum awesome of 265. I did place the banana bag on hold after about 200 mL infused pending further assessment. Urine osmolality resulted 137. Case discussed with the hospitalist service, will hold off on additional infusion of the bag, rather these were changed individual orders per hospitalist service pending recheck of laboratory studies. Furthermore, patient did have a bowel movement here which did appear to have some dark blood in it. Female RN at bedside Mignon to heat and vent aircraft mechanic, rectal region was inspected. 2 hemorrhoids noted. Nonthrombosed. No active bleeding or bright red blood noted. Patient notes ongoing blood in the stool. This has been ongoing for several months now. Please refer to further documentation regarding her stay. At this time I do believe that further evaluation and management in the inpatient setting is warranted. In the evaluation and treatment of this patient the following differential diagnoses were entertained: Electrolyte disturbance, CVA, TIA, LA, arrhythmia, dehydration, progressive malignancy, among others Impression & Plan Hyponatremia, Anemia, Frequent falls, Weakness generalized, Hypokalemia Discharge Plan Visit Data Chief Complaint: Leg Weakness, Bilateral ED Provider: Carolyn Real ED Midlevel Provider: Dickson Muñoz Discharge Problem: Hyponatremia, Anemia, Frequent falls, Weakness generalized, Hypokalemia Patient Disposition: Admitted As Inpatient Condition: Good Discharge Instructions Interventions: ED Discharge Assessment Last Done: 03/22/24 21:16
[2024-03-22 15:04] LABS: Partial Thromboplastin Ratio 1.1; Partial Thromboplastin Time 30 Seconds (21-31)
[2024-03-22 15:05] LABS: Troponin I High Sensitivity 7.5 pg/ml (0-14)
[2024-03-22 15:15] LABS: Thyroid Stimulating Hormone 3.342 uIu/ml (0.300-4.500)
[2024-03-22] MEDS: MULTI-VITAMIN INFUSION 10 ML, THIAMINE HCL 100 MG, FOLIC ACID 1 MG in SODIUM CHLORIDE 0... IV ONE (15:26)
[2024-03-22] MEDS: OPTIRAY 320 100ml IV ONE (16:02)
--- NOTE | 2024-03-22 16:18 | CT Scan Report ---
CT head/brain wo con CLINICAL HISTORY: 59 years-old Female with falls, weakness. Acute head trauma status post fall TECHNIQUE: Multiple axial CT images of the head were obtained without contrast. A dose lowering tech nique was utilized adhering to the principles of ALARA. COMPARISON: Head CT 06/03/2023 FINDINGS: No acute intracranial hemorrhage, midline shift, intracranial mass, hydrocephalus, territorial ischem ia or abnormal extra-axial collection. Involutional changes with bifrontal atrophy redemonstrated. Pr obable underlying chronic microvascular ischemic disease. Motion degraded exam. The calvarium is intact. The paranasal sinuses, mastoid air cells, and middle ear cavities are clear . IMPRESSION: No acute intracranial abnormality or calvarial fracture. ACT 112: Negative or not required by law. The above report was generated using voice recognition software. It may contain grammatical, syntax o r spelling errors. Electronically signed by: Calderon Sky M.D. 03/22/2024 4:17 PM
--- NOTE | 2024-03-22 16:41 | CT Scan Report ---
CT abd pelvis IV con only CLINICAL HISTORY: Colon CA, diarrhea, blood in stool, weakness TECHNIQUE: Helical axial images of the abdomen and pelvis were obtained and displayed. Automated dose lowering techniques and/or adjustment according to patient size were utilized for this exam. This e xam was performed with intravenous contrast. CT DOSE: 1272.45 mGy.cm COMPARISON: Comparison is made to CT pelvis 06/03/2023 FINDINGS: Lower chest: No acute abnormality. Liver: Unremarkable. No focal lesions are seen. Gallbladder and biliary tree: Gallbladder polyp measures up to 4 mm. No intra- or extrahepatic biliar y ductal dilation. Pancreas: Unremarkable, no focal lesions. Spleen: Unremarkable. Adrenals: Unremarkable. Kidneys and ureters: There is thickening and enhancement of the right ureter without evidence of obst ructive stone/mass. Bladder: Diffuse homogeneous wall thickening is seen. Reproductive organs: Unremarkable. Bowel: Unremarkable. Lymph nodes Retroperitoneal: Unremarkable. Pelvic: Unremarkable. Mesenteric: Unremarkable. Peritoneum: Normal. Vessels: Atherosclerotic calcifications are seen. Abdominal wall: Unremarkable. Bones: Multilevel degenerative changes are seen with numerous compression deformities most prominentl y in T12 and L1. Scattered lytic and sclerotic foci are seen. IMPRESSION: 1. Compared to exam of 2022, there is significant progression of compression deformities of L5, L1, and T12. There is a likely acute to subacute fracture of the anterior aspect of the T12 vertebral bod y. 2. Otherwise no acute abnormalities are seen. ACT 112: Negative or not required by law. Electronically signed by: Behzad Giron M.D. 03/22/2024 4:39 PM
[2024-03-22] MEDS: MAGNESIUM SULFATE / D5W 1 GM/100 ML BAG IV STA ×2 (17:24→19:04)
[2024-03-22] MEDS: POTASSIUM CHLORIDE / WTR 10 MEQ/100 ML PLCT IV ONE (17:24)
[2024-03-22 18:16] LABS: Appearance Urine Clear (Clear); Bacteria Urine Automated None Seen (None Seen); Bilirubin Urine Negative (Negative); Blood Urine Trace (Negative); Cast Urine Automated 0-2 /lpf (0-2); Color Urine Yellow; Epithelial Cell Urine Auto 0-2 /hpf (0-2); Glucose Urine UA Negative (Negative); Ketones Urine Trace (Negative); Leukocyte Esterase Urine 2+ (Negative); Nitrite Urine Negative (Negative); Protein Urine Negative (Negative); RBC Urine Automated 0-2 /hpf (0-2); Specific Gravity Urine 1.019 (1.000-1.030); Urobilinogen Urine Negative (Negative); WBC Urine Automated 0-5 /hpf (0-5)
[2024-03-22] MEDS: POTASSIUM CHLORIDE CRTAB 20 MEQ TABCR PO STA (18:32)
--- NOTE | 2024-03-22 19:10 | History & Physical Report ---
Date of Service March 22, 2024 Assessment & Plan (1) Weakness generalized: (2) Frequent falls: (3) Hypokalemia: (4) Hypomagnesemia: (5) Hyponatremia: (6) Alcohol abuse: (7) Rectal cancer: Plan This is a 59-year-old female who has significant past medical history of HTN, rectal cancer status post radiation and chemo however did not completely finish chemotherapy, iron deficiency anemia due to chronic blood loss, senile osteoporosis, history of compression fractures, chronic alcoholism, ataxia, chronic hyponatremia and anxiety who presents to ED secondary to lower extremity weakness and frequent falls. Generalized weakness Frequent falls Chronic Hyponatremia in setting of "beer potomania" admit to tele low urine and serum osm IVF NSS + 20meq KCL 80cc/hr repeat bmp q6h next at 2100 consider nephro consult if worsening PT/OT, obtain thiamine level consult german teacher Alcohol abuse: educated on cessation, AWSS protocol with gabapentin taper, PRN lorazepam, IV thiamine and oral folate Hypokalemia: replace via IV, pt attempted oral repletion and had choking episode in ER where nurse had to do a modified Heimlich procedure to clear airway, pt O2 saturations and mentation remained normal, monitor closely for signs of aspiration Hypomagnesemia: replace, repeat at 2100 and in a.m. Compression fx/Known osteoporosis: obtain vit D level in a.m., pt has a back brace at home, chronic back pain, place lidocaine patch Known rectal Cancer: s/p XRT, did not complete chemo treatment due to side effects, was suppose to undergo surgery but has not done this, CT shows Posttreatment stranding is seen in the rectum and perirectal fat. Chronic Anemia: 2/2 iron def and chronic rectal bleeding. Pt did have a large bloody bm in ED. Monitor h/h closely. Willl consult GI while inpt, continue oral protonix DVT ppx: SCDS PCP: Riya FULL CODE Dispo: admit to tele, likely to remain hospitalized until electrolyte derangements resolve, will need PT/OT to determine dispo Pt was seen and examined in collaboration with Dr. Mckenna, please see addendum A total of 76 minutes was spent coordinating, documenting, and providing care for this patient excluding time spent in the performance of separately billed services. This included personally viewing all current laboratories and imaging studies, medication reconciliation, outpatient chart review, and discussion with specialists. History of Present Illness Chief Complaint: Weakness and freq falls. Primary Care Provider: Shelli Ritter MD This is a 59-year-old female who has significant past medical history of HTN, rectal cancer status post radiation and chemo however did not completely finish chemotherapy, iron deficiency anemia due to chronic blood loss, senile osteoporosis, history of compression fractures, chronic alcoholism, ataxia, chronic hyponatremia and anxiety who presents to ED secondary to lower extremity weakness and frequent falls. She lives at home with her . She ambulates with assistance of cane/walker or wheelchair. Over the last 3 to 4 days she has had significant difficulty walking and today she feels so weak she is unable to use her legs. She has a significant past medical history of rectal cancer for which she did complete radiation therapy but only completed a cycle or 2 of chemotherapy and discontinued due to intolerance. She was to undergo surgical treatment, but did not pursue this. She has chronic rectal bleeding which is dark red in nature. She has chronic alcohol use for which she drinks 6-16 ounce prince lites daily. This is down from 14 a day. She has minimal oral intake with only some lunch meat/cheese the morning and some chips before bed. Her only liquid intake is at the beer. She denies any recent fever, chills, sweats, chest pain, shortness of breath, nausea, abdominal pain, increased urgency or frequency with urination. She does have frequent diarrhea. She currently uses alcohol. She is a former user of tobacco and marijuana but not currently. Allergies Allergy/AdvReac Type Severity Reaction Status Date / Time No Known Allergies Allergy Verified 03/22/24 17:36 Home Medications Medication Instructions Recorded Confirmed Type buspirone 15 mg tablet 15 mg PO BID 06/04/23 03/22/24 History folic acid 1 mg tablet 1 mg PO DAILY 06/04/23 03/22/24 History lisinopril 40 mg tablet 40 mg PO DAILY 06/04/23 03/22/24 History metoprolol tartrate 50 mg tablet 50 mg PO BID 06/04/23 03/22/24 History pantoprazole 40 mg tablet,delayed 40 mg PO DAILY 06/04/23 03/22/24 History release sertraline 100 mg tablet 100 mg PO DAILY 06/04/23 03/22/24 History magnesium oxide 400 mg (241.3 mg 400 mg PO QAM #30 tabs 06/09/23 03/22/24 Rx magnesium) tablet polyethylene glycol 3350 17 gram 17 g PO DAILY PRN constipation #0 06/09/23 03/22/24 Rx oral powder packet (Miralax) ea Past Med/Surg History Problem List Hypokalemia (Acute) Weakness generalized (Acute) Frequent falls (Acute) T12 compression fracture Hypomagnesemia (Acute) Weakness (Acute) Closed fracture of right distal radius (Acute) Fall (Acute) Rectal cancer Bipolar affect, depressed Essential hypertension Acute electrocardiogram changes GI bleeding Alcohol abuse Acute GI bleeding (Acute) Anemia (Acute) Hyponatremia (Acute) Seizure (Chronic) Medical History History of peptic ulcer Feeling suicidal Depression Anxiety Fracture of lumbar spine Surgical History H/O colonoscopy H/O esophagogastroduodenoscopy S/P D&C (status post dilation and curettage) Family History Family/Other Cancer brain and lung from separate female cousins Social History Smoking Status: Former smoker Tobacco Type: Cigarettes Second Hand Exposure: No; Do You Dip or Chew Tobacco: No; Hx Alcohol Use: Yes Alcohol type: beer Alcohol Intake Frequency: 4 or More x per/Week Alcohol Intake Frequency Comment: 6-9 16oz beer/day Hx Substance Use: No Preferred Language: Trinidadian Communication Ability: Effective Visual Impairment: No Limitations Hearing Ability: Normal [employer] Technician Required: No Beliefs That Will Affect Care: None Current Living Situation: Spouse Current Living Situation Comment: Home current occupational status: unemployed Feels Safe at Home: Yes during the past year weight has: remained stable Assistive Devices: Walker and Wheelchair Review of Systems Review of Systems: All systems reviewed & are unremarkable except as noted in HPI & below Physical Exam Physical Exam: Constitutional: WD/WN, vitals as above, NAD, sitting up in bed, pleasant, conversing easily Head: Normocephalic, Atraumatic Eyes: PERRL, conjunctivae normal, anicteric sclerae ENMT: external ear and nose normal, oropharynx normal Neck: trachea midline, no thyromegaly normal visual inspection Respiratory: normal respiratory effort, lungs clear to auscultation, no wheeze, rales, rhonchi. Normal insp/exp effort, no accessory muscle use Cardiovascular: RRR, no murmur, no edema Vessels: no JVD or carotid bruit Chest: normal inspection of chest Abdomen: normal bowel sounds, soft, nontender, no hepatosplenomegaly Musculoskeletal: no cyanosis or clubbing, AROM x 4, strength 4/5 bilateral lower ext 5/5 upper ext, no clonus Skin: no rashes, warm and dry normal turgor Neurologic: PERRL, EOMI, accommodation nl, no face palsy, no dysarthria CN's II-XI intact bilaterally and moves all extremities Psychiatric: A+Ox3, euthymic affect Lymphatic: no cervical or axillary lymphadenopathy : deferred Results & Data Results & Data Vital Signs (Past 12 Hours) Vital Signs Temp Pulse Resp BP Pulse Ox O2 Del Method 03/22/24 18:03 71 16 100 Room Air 03/22/24 18:00 176/133 H 03/22/24 17:54 72 15 03/22/24 17:36 75 19 100 Room Air 03/22/24 17:31 149/123 H 03/22/24 17:22 186/103 H 03/22/24 17:06 79 18 159/120 H 03/22/24 16:11 174/78 H 03/22/24 16:11 174/78 H 03/22/24 15:45 14 99 Room Air 03/22/24 15:03 74 17 131/109 H 100 Room Air 03/22/24 13:57 72 18 95 Room Air 03/22/24 13:50 36.7 C 77 19 161/80 H 99 Room Air Laboratory Results I have independently reviewed and interpreted patient's admitting labs including CBC, CMP, PTT, PT/INR, mag, lipase, tsh, serum osm, UA , urine osm, and troponin. Diagnostic Findings Chest X-Ray 03/22/24 13:57 XR chest 1V portable CLINICAL HISTORY: Weakness TECHNIQUE: Single frontal radiograph of the chest was obtained. Comparison: Comparison is made to chest radiograph 06/03/2023 FINDINGS: A port catheter is seen. Cardiomegaly is noted. The lungs are clear. No evidence of pleural effusion or pneumothorax. IMPRESSION: No acute chest disease. ACT 112: Negative or not required by law. Electronically signed by: Behzad Giron M.D. 03/22/2024 2:59 PM Abdomen/Pelvis CT 03/22/24 14:49 CT abd pelvis IV con only CLINICAL HISTORY: Colon CA, diarrhea, blood in stool, weakness TECHNIQUE: Helical axial images of the abdomen and pelvis were obtained and displayed. Automated dose lowering techniques and/or adjustment according to patient size were utilized for this exam. This exam was performed with intravenous contrast. CT DOSE: 1272.45 mGy.cm COMPARISON: Comparison is made to CT pelvis 06/03/2023 FINDINGS: Lower chest: No acute abnormality. Liver: Unremarkable. No focal lesions are seen. Gallbladder and biliary tree: Gallbladder polyp measures up to 4 mm. No intra- or extrahepatic biliary ductal dilation. Pancreas: Unremarkable, no focal lesions. Spleen: Unremarkable. Adrenals: Unremarkable. Kidneys and ureters: There is thickening and enhancement of the right ureter without evidence of obstructive stone/mass. Bladder: Diffuse homogeneous wall thickening is seen. Reproductive organs: Unremarkable. Bowel: Unremarkable. Lymph nodes Retroperitoneal: Unremarkable. Pelvic: Unremarkable. Mesenteric: Unremarkable. Peritoneum: Normal. Vessels: Atherosclerotic calcifications are seen. Abdominal wall: Unremarkable. Bones: Multilevel degenerative changes are seen with numerous compression deformities most prominently in T12 and L1. Scattered lytic and sclerotic foci are seen. IMPRESSION: 1. Compared to exam of 2022, there is significant progression of compression deformities of L5, L1, and T12. There is a likely acute to subacute fracture of the anterior aspect of the T12 vertebral body. 2. Otherwise no acute abnormalities are seen. ACT 112: Negative or not required by law. Electronically signed by: Behzad Giron M.D. 03/22/2024 4:[address] 03/22/24 14:49 CT head/brain wo con CLINICAL HISTORY: 59 years-old Female with falls, weakness. Acute head trauma status post fall TECHNIQUE: Multiple axial CT images of the head were obtained without contrast. A dose lowering technique was utilized adhering to the principles of ALARA. COMPARISON: Head CT 06/03/2023 FINDINGS: No acute intracranial hemorrhage, midline shift, intracranial mass, hydrocephalus, territorial ischemia or abnormal extra-axial collection. Involutional changes with bifrontal atrophy redemonstrated. Probable underlying chronic microvascular ischemic disease. Motion degraded exam. The calvarium is intact. The paranasal sinuses, mastoid air cells, and middle ear cavities are clear. IMPRESSION: No acute intracranial abnormality or calvarial fracture. ACT 112: Negative or not required by law. The above report was generated using voice recognition software. It may contain grammatical, syntax or spelling errors. Electronically signed by: Calderon Sky M.D. 03/22/2024 4:17 PM Medications Administered Medication List Discontinued Medications Multivitamins 10 ml/ Thiamine HCl 100 mg/ Folic Acid 1 mg/Sodium Chloride 1,011.2 mls @ 500 mls/hr IV .Q2H2M ONE Stop: 03/22/24 16:50 Last Admin: 03/22/24 15:26 Dose: 500 mls/hr Documented By: SHAREE Magnesium Sulfate/Dextrose (Magnesium Sulfate / D5w) 1 gm in 100 mls @ 100 mls/hr IV NOW STA Stop: 03/22/24 17:43 Last Infusion: 03/22/24 19:04 Dose: Infused Documented By: Admin: 03/22/24 17:24 Dose: 100 mls/hr Documented By: SHAREE Potassium Chloride (K Chivo / Wtr) 10 meq in 100 mls @ 100 mls/hr IV ONE ONE Stop: 03/22/24 17:42 Last Infusion: 03/22/24 19:04 Dose: Infused Documented By: Admin: 03/22/24 17:24 Dose: 100 mls/hr Documented By: SHAREE Magnesium Sulfate/Dextrose (Magnesium Sulfate / D5w) 1 gm in 100 mls @ 100 mls/hr IV NOW STA Stop: 03/22/24 18:53 Last Admin: 03/22/24 19:04 Dose: 100 mls/hr Documented By: SHAREE Ioversol (Optiray 320 100ml) 94 ml IV ONCE ONE Stop: 03/22/24 16:03 Last Admin: 03/22/24 16:02 Dose: 94 ml Documented By: DAVID Potassium Chloride (Potassium Chloride Crtab 20 Meq Tabcr) 40 meq PO NOW STA Stop: 03/22/24 17:54 Last Admin: 03/22/24 18:32 Dose: 40 meq Documented By: TRINIDAD ECG Additional Comments: I have independently reviewed and interpreted patient's admitting EKG which revealed: 82,poor quality ecg but appears NSR, will obtain repeat COVID-19 Results Results COVID-19 Adm Lab Results: RBC 2.79 M/uL (4.20-5.40) L 03/22/24 WBC 3.28 K/ul (4.8-10.8) L 03/22/24 Hgb 8.6 g/dl (12.0-16.0) L 03/22/24 Hct 24.9 % (37.0-47.0) L 03/22/24 Plt Count 132 K/uL (130-400) 03/22/24 Neutrophils (%) (Auto) 73.5 % 03/22/24 Lymphocytes (%) (Auto) 15.2 % 03/22/24 Monocytes # (Auto) 0.32 K/uL (0.11-0.59) 03/22/24 Eosinophils # (Auto) 0.02 K/uL (0.00-0.50) 03/22/24 Immature Granulocyte % (Auto) 0.6 % 03/22/24 Neutrophils # (Auto) 2.41 K/uL (1.40-6.50) 03/22/24 Lymphocytes # (Auto) 0.50 K/uL (1.20-3.40) L 03/22/24 Monocytes # (Auto) 0.32 K/uL (0.11-0.59) 03/22/24 Eosinophils # (Auto) 0.02 K/uL (0.00-0.50) 03/22/24 Basophils # (Auto) 0.01 K/uL (0.00-0.20) 03/22/24 Immature Granulocyte # (Auto) 0.02 K/uL (0.01-0.20) 4 Na 127 mmol/L (136-145) L 03/22/24 K 3.7 mmol/L (3.5-5.1) 03/22/24 Cl 95 mmol/L (98-107) L 03/22/24 CO2 23 mmol/L (21-32) 03/22/24 Anion Gap 9 (3-11) 03/22/24 BUN 6 mg/dl (6-23) 03/22/24 Creatinine 0.49 mg/dl (0.6-1.2) L 03/22/24 BUN/Creatinine Ratio 12.2 (10-20) 03/22/24 Glucose Level 122 mg/dl (70-99(Fasting)) H 03/22/24 Ca 8.9 mg/dl (8.6-10.3) 03/22/24 Phosphorus Level 3.7 mg/dl (2.5-4.9) 03/22/24 Total Bilirubin 0.6 mg/dl (0.2-1.0) 03/22/24 AST/SGOT 80 U/L (13-39) H 03/22/24 ALT/SGPT 19 U/L (7-52) 03/22/24 Alkaline Phosphatase 93 U/L (34-104) 03/22/24 Total Protein 6.4 gm/dl (6.0-8.3) 03/22/24 Albumin 3.7 gm/dl (3.4-5.0) 03/22/24 Globulin 2.7 gm/dl (2.5-4.0) 03/22/24 Albumin/Globulin Ratio 1.4 (0.9-2) 03/22/24 PTT 30 Seconds (21-31) 03/22/24 INR 1.0 (0.9-1.1) 03/22/24 Chest X-Ray 03/22/24 Code Status & VTE Plan Code Status FULL CODE VTE Prophylaxis Plan VTE Prophylaxis will be ordered: Yes Supervising Physician Co-Signing Physician Notes Patient was seen and examined independently at bedside. Chart reviewed. Case discussed with Heather GUTIERREZ and agree with the documentation above with regards to HPI, PE and A/P. In summary, this is a 59 year old female who is being admitted for alcohol abuse with concern for withdrawal along with multiple electrolyte abnormalities including hyponatremia, hypokalemia, hypomagnesemia. Hyponatremia seems to be beer potomania and should resolve once eating well- recheck BMP q6hr to ensure correction at goal. Also has ongoing rectal bleeding in setting of rectal cancer and intolerance to chemo which she has since stopped. Continue AWSS protocol with gabapentin taper, ativan prn, replete electrolytes, recheck labs in am. PT OT eval for weakness and falls. Rest as per the note above.
[2024-03-22 19:19] LABS: Phosphorus 3.7 mg/dl (2.5-4.9)
[2024-03-22] MEDS ORDERED: POLYETHYLENE (MIRALAX) 17 GM PACK PO PRN (19:34)
[2024-03-22] MEDS ORDERED: LORazepam 1 MG in SYRINGE 0.5 ML IV PRN (19:34)
[2024-03-22] MEDS ORDERED: MAGNESIUM HYDROXIDE SUSP 30 ML UDC PO PRN (19:34)
[2024-03-22] MEDS ORDERED: ONDANSETRON INJ 2 MG/ML 2 ML VIAL IV PRN (19:34)
[2024-03-22] MEDS ORDERED: ACETAMINOPHEN 325 MG TAB PO PRN (19:34)
[2024-03-22] MEDS ORDERED: GABAPENTIN 1200MG ALCOHOL WITHDRAWAL LOAD PO STA (19:34)
[2024-03-22] MEDS: NSS + 20MEQ KCL 20 MEQ/1,000 ML BAG IV SCH (20:00)
[2024-03-22] MEDS: GABAPENTIN 600 MG TAB PO ONE (20:15)
[2024-03-22] MEDS: MAGNESIUM OXIDE 400 MG TAB PO SCH (20:25)
[2024-03-22] MEDS: busPIRone 15 MG TAB PO SCH (20:26)
[2024-03-22] MEDS: METOPROLOL TARTRATE 50 MG TAB PO SCH (20:26)
[2024-03-22] MEDS: THIAMINE HCL 100 MG in SYRINGE 9 ML IV SCH (20:27)
[2024-03-22] MEDS: hydrALAZINE HCL 20 MG/ML VIAL IV ONE (20:48)
[2024-03-22 21:12] LABS: Basophils # (auto) 0.01 K/uL (0.00-0.20); Basophils % (auto) 0.3 %; Eosinophils # (auto) 0.02 K/uL (0.00-0.50); Eosinophils % (auto) 0.6 %; Hematocrit (blood only) 24.9 % (37.0-47.0); Hemoglobin 8.6 g/dl (12.0-16.0); Immature Granulocytes # (auto) 0.02 K/uL (0.01-0.20); Immature Granulocytes % (auto) 0.6 %; Lymphocytes % (auto) 15.2 %; Mean Corpuscular Hemoglobin 30.8 pg (25.0-34.0); Mean Corpuscular Hgb Conc 34.5 g/dL (32.0-36.0); Mean Corpuscular Volume 89.2 fL (80.0-100.0); Mean Platelet Volume 9.6 fL (9.4-12.4); Monocytes # (auto) 0.32 K/uL (0.11-0.59); Monocytes % (auto) 9.8 %; Neutrophils # (auto) 2.41 K/uL (1.40-6.50); Neutrophils % (auto) 73.5 %; Platelet Count 132 K/uL (130-400); RDW Coefficient of Variation 13.5 % (11.5-14.5); RDW Standard Deviation 44.6 fL (36.4-46.3); Red Blood Count 2.79 M/uL (4.20-5.40); White Blood Count 3.28 K/ul (4.8-10.8)
[2024-03-22 21:28] LABS: BUN Creatinine Ratio 12.2 (10-20); Calcium 8.9 mg/dl (8.6-10.3); Est GFR (African American) 121.9 ml/min; Est GFR (Non-African American) 105.2 ml/min; Magnesium 2.3 mg/dl (1.7-2.4); Potassium 3.7 mmol/L (3.5-5.1)
[2024-03-22] MEDS: LIDOCAINE 5% 1 PATCH TD SCH (22:43)
--- OUTSIDE RECORDS SUMMARY | 2024-03-22 23:03 | External Medical Summary | Summary of Care ---
Author Name Unknown Organization [facility] Address [address] [place] [address] Phone [phone] Care Team Providers Care Registered Dental Assistant Name Role Phone Shelli Ritter MD Primary Care Provide r Reason for Visit * Reason Onset Date Comments case management 03/14/2024 Encounter Details Date Type Department Care Team (Late st Contact Info) Description 03/14/2024 Telephone Care Coordination and Integration [address], [place] [phone] Carolyn Guzman, BRYON [address], [place] [phone] case management Allergies No known active allergiesdocumented as of this encounter (statuses as of 03/14/2024) Medications Medication Sig Dispensed Refills Start Date End Date Status Thiamine HCl 100 MG Oral Tablet (vitamin B-1) TAKE 1 TABLET BY MOUTH EVERY DAY IN THE MORNING 90 Tablet 1 01/27/2023 Active Udderly Smooth Extra Care 20 External CreamIndications:Re ctal cancer (HCC) Apply topically to hands and feet 2 times a day 228 g 3 02/10/2023 Active Cyanocobalamin 500 MCG Oral Tablet Take 1 Tablet by mouth in the morning. Active oxyCODONE HCl 5 MG Oral Tablet (Oxy IR)Indications:Comp ression fracture of T12 vertebra with routine healing, subsequent encounter Take 1 Tablet by mouth every 6 hours as needed for Pain, Severe. 10 Tablet 07/08/2023 Active Magnesium Oxide -Mg Supplement 400 (240 Mg) MG Oral Tablet (Mag-Ox)Indications :Hypomagnesemia TAKE 2 TABLETS BY MOUTH EVERY DAY 180 Tablet 1 07/12/2023 Active Metoprolol Tartrate 50 MG Oral Tablet (Lopressor)Indicati ons:HTN, goal below 140/90 TAKE 1 TABLET BY MOUTH IN THE MORNING AND BEFORE BEDTIME 180 Tablet 3 09/16/2023 Active Sertraline HCl 100 MG Oral Tablet (Zoloft)Indications :Generalized anxiety disorder TAKE 1 TABLET BY MOUTH DAILY FOR ANXIETY/DEPRESSION 90 Tablet 3 11/06/2023 Active busPIRone HCl 15 MG Oral Tablet (Buspar)Indications :Generalized anxiety disorder TAKE 1 TABLET BY MOUTH IN THE MORNING AND BEFORE BEDTIME 180 Tablet 1 12/21/2023 Active Ferrous Sulfate 325 (65 Fe) MG Oral Tablet (Feosol)Indications :Iron deficiency anemia due to chronic blood loss TAKE 1 TABLET BY MOUTH EVERY DAY IN THE MORNING 90 Tablet 1 03/01/2024 Active Folic Acid 1 MG Oral Tablet TAKE 1 TABLET BY MOUTH EVERY DAY IN THE MORNING 90 Tablet 1 03/01/2024 Active Pantoprazole Sodium 40 MG Oral Tablet Delayed Release (Protonix) TAKE 1 TABLET BY MOUTH EVERY DAY IN THE MORNING 90 Tablet 1 03/01/2024 Active Lisinopril 40 MG Oral TabletIndications:H TN, goal below 140/90 TAKE 1 TABLET BY MOUTH EVERY DAY 90 Tablet 1 03/02/2024 Active documented as of this encounter (statuses as of 03/14/2024) Active Problems Problem Noted Date Diagnosed Date Other pancytopenia 06/24/2023 Compression fracture of T12 vertebra 06/24/2023 Closed fracture of lower end of right radius with routine healing 06/24/2023 Encounter for antineoplastic chemotherapy 2022 Rectal cancer 01/03/2023 Iron deficiency anemia due to chronic blood loss 01/03/2023 Senile osteoporosis 03/30/2022 Hypokalemia 10/28/2020 Ataxia 03/17/2018 Hypomagnesemia 10/30/2015 Hyponatremia 10/30/2015 Continuous chronic alcoholism 09/25/2013 HTN, GOAL BELOW 140/90 06/27/2009 Overview: Modified per HTN Taxonomy. Generalized anxiety disorder 04/05/2008 ADVANCE DIRECTIVE INFORMATION 10/20/2005 Overview: No, Advance Directive brochure offered , patient declined. documented as of this encounter (statuses as of 03/14/2024) Resolved Problems Problem Noted Date Diagnosed Date Resolved Date Alcohol withdrawal 06/29/2017 0 Bipolar disorder 11/26/2013 10/28/2020 Alcohol related seizure 11/26/201302/2020 HTN, goal below 140/90 04/05/200806/27 Overview: Modified per HTN Taxonomy. Peptic ulcer 04/05/2008 08/28/2019 documented as of this encounter (statuses as of 03/14/2024) Immunizations Name Administration Dates Next Due COVID-19 mRNA, LNP-s, No Pre serve, 2-Dose Series (Moderna) 10/24/2020,09/29/2020 Pneumococcal Polysaccharide PPV23 (Pneumovax) TDAP (age 10 and older)(Boostrix) 08/28/2019 TDAP, Age 7 and older, IM (Adacel) 04/05/2008 documented as of this encounter Social History Tobacco Use Types Packs/Day Years Used Date Smoking Tobacco: Former Cigarettes 1 25 0 08/22/1984 - 08/22/2009 Smokeless Tobacco: Never Alcohol Use Standard Drinks/Week Comments Yes 0 (1 standard drink = 0.6 oz pur e alcohol) "at least" 4 beers daily PHQ-2 Answer Date Recorded PHQ-2 Score 0 04/22/2020 Hunger Vital Sign Answer Date Recorded Within the past 12 months, y ou worried that your food would run out before you got the money to buy more. Never true 07/18/20 23 Within the past 12 months, t he food you bought just didn't last and you didn't have money to get more. Never true 07/18/2023 Childcare Answer Date Recorded Do you feel overwhelmed with taking care of a child, family member or friend? No 07/18/2023 Does your family need help f inding childcare? (Household - for ages 0-17 years) Not on file 07/18/2023 Clothing Answer Date Recorded Have you been unable to get clothing when it was really needed? No 07/18/2023 Is your family able to get c lothes or diapers when needed? (Household - for ages 0-17 years) Not on file 07/18/2023 Personal Safety Answer Date Recorded Do you feel unsafe or have concerns for your saf ety? No 07/18/2023 Do you have concerns for you r family's safety? (Household - for ages 0-17 years) Not on file 07/18/2023 Utilities Answer Date Recorded Do you have trouble paying y our heating, water, or electric bill? Yes 07/18/2023 Is your family able to pay t he heat, water, or electric bill? (Household - for ages 0-17 years) Not on file 07/18/2023 Does your family have access to good internet? (Household - for ages 0-17 years) Not on file 07/18/2023 Employment Status Answer Date Recorded Are you unemployed or without regular income? No 07/18/2023 Does the household have a re gular source of income? (Household - for ages 0-17 years) Not on file 07/18/2023 Social Connections Answer Date Recorded How often do you feel lonely or isolated from th ose around you? Never 07/18/2023 Financial Resource Strain Answer Date R ecorded Do you have any trouble payi ng for your medications, or do you think you might in the future? No 07/18/2023 Does your family have troubl e paying for medicine? (Household - for ages 0-17 years) Not on file 07/18/2023 Transportation Needs Answer Date Record ed READ ONLY Do you have troubl e getting a ride to medical visits or work? Never True 07/18/2023 Does your family have a hard time getting a ride to doctors visits? (Household - for ages 0-17 years) Not on file 07/18/2023 Has lack of transportation k ept you from medical appointments, meetings, work, or from getting things needed for daily living? Check all that apply. (Adult - for ages 18 years and over) Not on file 07/18/2023 Do you (or your family) have trouble finding or paying for a ride (transportation)? (Household - for ages 0-17 years) Not on file 07/18/2023 Housing Stability Answer Date Recorded Do you currently live in a s helter or have no steady place to sleep at night? No 07/18/2023 READ ONLY Do you think you a re at risk of becoming homeless? No 07/18/2023 Does your family worry about paying for your home or becoming homeless? (Household - for ages 0-17 years) Not on file 1 09/17/2022 Are you homeless or worried that you might be in the future? (Adult - for ages 18 years and over) Not on file Are you (or your family) xena eless or worried that you might be in the future? (Household - for ages 0-17 years) Not on file Food Insecurity Answer Date Recorded Do you need food for this week? No 07/18/2023 Are you able to get enough f ood for your family? (Household - for ages 0-17 years) Not on file 07/18/2023 Does your family need food t his week? (Household - for ages 0-17 years) Not on file 07/18/2023 Do you always have enough fo od for your family? (Household - for ages 0-17 years) Not on file 07/18/2023 Sex and Gender Information Value Date Recorded Sex Assigned at Not on file Gender Identity Not on file Sexual Orientation Not on file Job Start Date Occupation Industry Not on file Not on file Not on file documented as of this encounter Miscellaneous Notes * Telephone Encounter - Carolyn Guzman RN - 03/14/2024 7:45 AM EDT Please discharge the patient from [facility] Device(s)/IVR to be discontinued: PDIVR CALLS due to COMPLETION. Thank you. documented in this encounter Plan of Treatment Upcoming Encounters Date Type Department Care Team (Late st Contact Info) Description 04/09/2024 1:00 PM EDT Office Visit Family Medicine [address] [place] [phone] Shelli Ritter MD [address] [place] [address] [place] [address] 04/16/2024 10:20 AM EDT Office Visit Rheumatology [address] [place] [phone] Live Spann MD [address] [facility] [place], [place] [address] Health Maintenance Due Date Last Done Comments HPV/Co-Test 1993 Cologuard 01/27/2008 Fecal Occult Blood Test 01/27/2008 Sigmoidoscopy 01/27/2008 Zoster Vaccines (1 of 2) 2013 Cervical Cancer Screening 10/20/2013 Pap Smear 10/20/2013 10/20/2010 Pneumococcal Vaccine: Pediatrics (0 to 5 Years) and At-Risk Patients (6 to 64 Years) (2 of 2 - PCV) 03/17/2019 03/17/2018 Depression Screening 04/22/2021 04/22/2020 COVID-19 Vaccine (3 - 2022- season) 2023 10/24/2020, 09/29/2020 Mammogram 12/14/2023 12/13/2022, 11/21, 12/02/2020, Additional history exists DXA Scan 03/30/2024 03/30/2022 Influenza Vaccine (FLU shot) (#1) 2024 GFR 11/01/2024 11/02/2023, 05/23, 06/10/2023, Additional history exists Albumin/Creatinine Ratio 10/19/2025 10/19/2022 Lipid Panel 04/26/2028 04/26/2023, 02/20, 02/25/2011, Additional history exists DTaP,Tdap,and Td Vaccines (3 - Td or Tdap) 08/28/2029 08/28/2019, 04/05/2008 Colonoscopy 12/27/2032 12/27/2022 Colorectal Cancer Screening 12/27/2032 VITAMIN D LEVEL ONCE IN A LIFETIME-USE SMARTSET# [id number] Completed 05/04/2021, 09/01/2010 Lung Cancer Screening Completed 2023 , 12/27/2022, 11/09/2022 HPV (Gardasil) Vaccine Aged Out No lo nger eligible based on patient's age to complete this topic Hepatitis B Vaccine Aged Out No longe r eligible based on patient's age to complete this topic MENINGOCOCCAL (MENACTRA/MENVEO) Aged Out No longer eligible based on patient's age to complete this topic documented as of this encounter Medical Devices Implanted Type Area Sugar Laboratory Assistant Device Identifier Shelf Expiration Date Model / Serial / Lot Power Port 8fr Sngl Lumen Plas - [id number] Implanted:Qty : 1 on 04/21/2023 by Artemio Bynum DO at OR [facility] Right: Chest CR BARD : PERIPHERAL VASCULAR 06/21/2024 [id number] / / [id number] Power Port 8fr Sngl Lumen Plas - [id number] Implanted:Qty : 1 on 04/21/2023 by Artemio Bynum DO at OR [facility] CR BARD : PERIPHERAL VASCULAR [id number] 06/21/2024 [id number] / / [id number] documented as of this encounter Advance Directives Healthcare Agents on File Name Relationship Healthcare Agent Relationshi p Communication Olivier Root Spouse Health Care Repr esentative (appointed verbally by patient or by statute hierarchy) Care Teams Registered Dental Assistant Relationship Specialty Start Date End Date Shelli Ritter MD [address] [place] [address] [place] [phone] PCP - General Family Medicine 10/30/15 documented as of this encounter
--- OUTSIDE RECORDS SUMMARY | 2024-03-22 23:03 | External Medical Summary | Summary of Care ---
Author Name Unknown Organization [facility] Address [address] [facility] [place] [address] Phone [phone] Care Team Providers Care Civil Cadd Technician Name Role Phone Vito Nelson MD Primary Care Provide r Reason for Visit * Reason Comments eRx-Medication Refill Encounter Details Date Type Department Care Team (Late st Contact Info) Description 03/01/2024 Refill Family Medicine [address] [phone] Vito Nelson MD [address] [place], [place] [address] [phone] HTN, goal below 140/90 Allergies No known active allergiesdocumented as of this encounter (statuses as of 03/02/2024) Medications Medication Sig Dispensed Refills Start Date End Date Status Thiamine HCl 100 MG Oral Tablet (vitamin B-1) TAKE 1 TABLET BY MOUTH EVERY DAY IN THE MORNING 90 Tablet 1 01/27/2023 Active Udderly Smooth Extra Care 20 External CreamIndications :Rectal cancer (HCC) Apply topically to hands and feet 2 times a day 228 g 3 02/10/2023 Active Cyanocobalamin 500 MCG Oral Tablet Take 1 Tablet by mouth in the morning. Active oxyCODONE HCl 5 MG Oral Tablet (Oxy IR)Indications:C ompression fracture of T12 vertebra with routine healing, subsequent encounter Take 1 Tablet by mouth every 6 hours as needed for Pain, Severe. 10 Tablet 07/08/2023 Active Magnesium Oxide -Mg Supplement 400 (240 Mg) MG Oral Tablet (Mag-Ox)Indicati ons:Hypomagnesem ia TAKE 2 TABLETS BY MOUTH EVERY DAY 180 Tablet 1 07/12/2023 Active Metoprolol Tartrate 50 MG Oral Tablet (Lopressor)Indic ations:HTN, goal below 140/90 TAKE 1 TABLET BY MOUTH IN THE MORNING AND BEFORE BEDTIME 180 Tablet 3 09/16/2023 Active Sertraline HCl 100 MG Oral Tablet (Zoloft)Indicati ons:Generalized anxiety disorder TAKE 1 TABLET BY MOUTH DAILY FOR ANXIETY/DEPRESS ION 90 Tablet 3 11/06/2023 Active busPIRone HCl 15 MG Oral Tablet (Buspar)Indicati ons:Generalized anxiety disorder TAKE 1 TABLET BY MOUTH IN THE MORNING AND BEFORE BEDTIME 180 Tablet 1 12/21/2023 Active Ferrous Sulfate 325 (65 Fe) MG Oral Tablet (Feosol)Indicati ons:Iron deficiency anemia due to chronic blood loss [...] 1 03/01/2024 Active Lisinopril 40 MG Oral TabletIndication s:HTN, goal below 140/90 TAKE 1 TABLET BY MOUTH EVERY DAY 90 Tablet 1 03/02/2024 Active Lisinopril 40 MG Oral TabletIndication s:HTN, goal below 140/90 TAKE 1 TABLET BY MOUTH EVERY DAY 90 Tablet 3 01/28/2023 4 Discontinued documented as of this encounter (statuses as of 03/02/2024) Active Problems Problem Noted Date Diagnosed Date [...] as of this encounter (statuses as of 03/02/2024) Resolved Problems Problem Noted Date Diagnosed Date Resolved Date Alcohol withdrawal 06/29/2017 0 Bipolar disorder 11/26/2013 10/28/2020 Alcohol related seizure 11/26/201302/2020 HTN, goal below 140/90 04/05/200806/27 Overview: Modified per HTN Taxonomy. Peptic ulcer 04/05/2008 08/28/2019 documented as of this encounter (statuses as of 03/02/2024) Immunizations Name Administration Dates Next Due COVID-19 [...] money to get more. Never true 07/18/2023 Sex and Gender Information Value Date Recorded Sex Assigned at Not on file Gender Identity Not on file Sexual Orientation Not on file Job Start Date Occupation Industry Not on file Not on file Not on file documented as of this encounter Miscellaneous Notes * Telephone Encounter - Erick Mix [facility] - 03/02/2024 3:55 PM EDTSigned Prescriptions: Disp Refills Lisinopril 40 MG Oral Tablet 90 Tab*1 Sig: TAKE 1 TABLET BY MOUTH EVERY DAY Authorizing Provider: VITO NELSON Ordering User: ERICK MIX * Telephone Encounter - Erick Mix [facility] - 03/02/2024 3:55 PM EDTSigned Prescriptions: Disp Refills Lisinopril 40 MG Oral Tablet 90 Tab*1 Sig: TAKE 1 TABLET BY MOUTH EVERY DAY Authorizing Provider: VITO NELSON Ordering User: ERICK MIX * Telephone Encounter - Jennifer Becker [facility] - 03/01/2024 3:48 PM EDT Did you pend patient's preferred pharmacy and medication before forwarding?yes Pharmacy: [id number] Pending Prescriptions: Disp Refills Lisinopril 40 MG Oral Tablet [Pharmacy Me*90 Tab*3 Sig: TAKE 1 TABLET BY MOUTH EVERY DAY Last Visit: 06/24/2023 (in office), Visit date not found (telemedicine) Next Visit: 04/09/2024 If no future appointments scheduled, and last appointment is greater than a year ago, please schedule patient for a follow-up appointment Last date the medication was ordered: 01/28/2023 Is this request for a controlled substance?No Urine Drug Screen: Results for orders placed or performed in visit on 06/09/17 TOX SCREEN, URINE, W/ CONFIRMATION Result Value Amphetamine NEGATIVE Barbiturates NEGATIVE Benzodiazepines NEGATIVE Cannabinoids NEGATIVE Cocaine Metabolite NEGATIVE Morphine / Codeine NEGATIVE METHADONE METABOLITE NEGATIVE OXYCODONE NEGATIVE TOX COMMENT THE ABOVE SCREENING RESULTS ARE PRESUMPTIVE AND CAN ONLY BE USED FOR MEDICAL PURPOSES. POSITIVE RESULTS REFLEX TO CONFIRMATORY TESTING. Cutoff Concentration Patient Phone Numbers Labs: Lab Results Component Value Date/Time CREAT 0.6 11/02/2023 10:35 AM CREAT 0.62 04/06/2023 12:00 AM CREAT 0.7 08/28/2019 09:20 AM POTASSIUM 3.9 11/02/2023 10:35 AM POTASSIUM 3.8 04/06/2023 12:00 AM POTASSIUM 4.2 08/28/2019 09:20 AM TSH 1.77 03/17/2018 04:27 PM LDLCALC 91 04/26/2023 10:25 AM LDLCALC 79 03/17/2018 04:27 PM LDLDIRECT NOT APPLICABLE 03/17/2018 04:27 PM ALT 13 11/02/2023 10:35 AM ALT 16 06/09/2017 11:37 AM documented in this encounter Plan of Treatment Upcoming Encounters Date Type Department Care Team (Late st Contact Info) Description 04/09/2024 1:00 PM EDT Office Visit Family Medicine [address] [place] [phone] Vito Nelson MD [address] [place] [address] [place] [address] 04/16/2024 10:20 AM EDT Office Visit Rheumatology [address] [place] [phone] Live Spann MD [address] [facility] [place], [place] [address] Health Maintenance Due Date Last Done Comments [...] D LEVEL ONCE IN A LIFETIME-USE SMARTSET# [id number] Completed 05/04/2021, 09/01/2010 Lung Cancer Screening Completed [...] this encounter Medical Devices Implanted Type Area Pole Setter Device Identifier Shelf Expiration Date Model / Serial / Lot Power Port 8fr Sngl Lumen Plas - [id number] Implanted:Qty : 1 on 04/21/2023 by Artemio Bynum DO at OR [facility] Right: Chest CR BARD : PERIPHERAL VASCULAR 06/21/2024 [id number] / / [id number] Power Port 8fr Sngl Lumen Plas - [id number] Implanted:Qty : 1 on 04/21/2023 by Artemio Bynum DO at OR [facility] CR BARD : PERIPHERAL VASCULAR [id number] 06/21/2024 [id number] / / [id number] documented as of this encounter Visit Diagnoses Diagnosis HTN, goal below 140/90 Unspecified essential hypertension documented in this encounter Advance Directives Healthcare Agents on File Name Relationship Healthcare Agent Relationshi p Communication Olivier Lebron Spouse Health Care Repr esentative (appointed verbally by patient or by statute hierarchy) Care Teams Civil Cadd Technician Relationship Specialty Start Date End Date Vito Nelson MD [address] [place] [address] [place] [address] PCP - General Family Medicine 10/30/15 documented as of this encounter
--- OUTSIDE RECORDS SUMMARY | 2024-03-22 23:03 | External Medical Summary | Summary of Care ---
Author Name Unknown Organization [facility] Address [address] [facility] [place] [address] Phone [phone] Care Team Providers Care Precision Lathe Operator Name Role Phone Shelli Ritter MD Primary Care Provide r Reason for Visit * Reason Onset Date Comments No Show 02/16/2024 Encounter Details Date Type Department Care Team (Late st Contact Info) Description 02/16/2024 Telephone Hematology/Oncology [facility] [place] [address] [facility] [place] [phone] [facility] [address] [facility] [address] No Show Allergies No known active allergiesdocumented as of this encounter (statuses as of 03/21/2024) Medications Medication Sig Dispensed Refills Start Date [...] BEFORE BEDTIME 180 Tablet 1 12/21/2023 Active Lisinopril 40 MG Oral TabletIndication s:HTN, goal below 140/90 TAKE 1 TABLET BY MOUTH EVERY DAY 90 Tablet 3 01/28/2023 4 Discontinued Ferrous Sulfate 325 (65 Fe) MG Oral Tablet (Feosol)Indicati ons:Iron deficiency anemia due to chronic blood loss Take 1 Tablet by mouth in the morning. 90 Tablet 1 06/24/2023 4 Discontinued Pantoprazole Sodium 40 MG Oral Tablet Delayed Release (Protonix) TAKE 1 TABLET BY MOUTH EVERY DAY IN THE MORNING 90 Tablet 1 08/16/2023 4 Discontinued Folic Acid 1 MG Oral Tablet TAKE 1 TABLET BY MOUTH EVERY DAY IN THE MORNING 90 Tablet 1 08/16/2023 4 Discontinued documented as of this encounter (statuses as of 03/21/2024) Active Problems Problem Noted Date Diagnosed Date [...] as of this encounter (statuses as of 03/21/2024) Resolved Problems Problem Noted Date Diagnosed Date Resolved Date Alcohol withdrawal 06/29/2017 0 Bipolar disorder 11/26/2013 10/28/2020 Alcohol related seizure 11/26/201302/2020 HTN, goal below 140/90 04/05/200806/27 Overview: Modified per HTN Taxonomy. Peptic ulcer 04/05/2008 08/28/2019 documented as of this encounter (statuses as of 03/21/2024) Immunizations Name Administration Dates Next Due COVID-19 [...] No 07/18/2023 Does the household have a [facility] source of income? (Household - for ages [...] encounter Miscellaneous Notes * Telephone Encounter - Maritza Parks OSA - 03/21/2024 8:54 AM EDT Left message * Telephone Encounter - Phyllis Sweet MED ASSIST - 02/16/2024 9:57 AM EDT Please contact patient to reschedule NO Show appt today scheduled with . thank you. documented in this encounter Plan of Treatment Upcoming Encounters Date Type Department Care Team (Late st Contact Info) Description 04/09/2024 1:00 PM EDT Office Visit Family Medicine [address] [place] [phone] Shelli Ritter MD [address] [place] [address] [place] [phone] 04/16/2024 10:20 AM EDT Office Visit Rheumatology [address] [place] [phone] Live Spann MD [facility] [place] [employer] [place] [address] Health Maintenance Due Date Last Done Comments [...] D LEVEL ONCE IN A LIFETIME-USE SMARTSET# [id number] Completed 05/04/2021, 09/01/2010 Lung Cancer Screening Completed 2023 , 12/27/2022, 11/09/2022 HIV Screening Completed 04/26/2023 Hepatitis C Screening Completed 04/26/2023 , 04/26/2023, 04/26/2023 HPV (Gardasil) Vaccine Aged Out No lo nger eligible based on patient's age to complete this topic Hepatitis B Vaccine Aged Out No longe r eligible based on patient's age to complete this topic MENINGOCOCCAL (MENACTRA/MENVEO) Aged Out No longer eligible based on patient's age to complete this topic documented as of this encounter Medical Devices Implanted Type Area Hammer Mill Operator Device Identifier Shelf Expiration Date Model / Serial / Lot Power Port 8fr Sngl Lumen Plas - [id number] Implanted:Qty : 1 on 04/21/2023 by Artemio Bynum DO at OR [facility] Right: Chest CR BARD : PERIPHERAL VASCULAR 06/21/2024 [id number] / / [id number] Power Port 8fr Sngl Lumen Plas - [id number] Implanted:Qty : 1 on 04/21/2023 by Artemio Bynum DO at OR [facility] CR BARD : PERIPHERAL VASCULAR [id number] 06/21/2024 [id number] / / [id number] documented as of this encounter Advance Directives Healthcare Agents on File Name Relationship Healthcare Agent Relationshi p Communication Olivier Root Spouse Health Care Repr esentative (appointed verbally by patient or by statute hierarchy) Care Teams Precision Lathe Operator Relationship Specialty Start Date End Date Shelli Ritter MD [address] [place] [address] [place] [phone] PCP - General Family Medicine 10/30/15 documented as of this encounter
--- OUTSIDE RECORDS SUMMARY | 2024-03-22 23:03 | External Medical Summary | Summary of Care ---
Author Name Unknown Organization [facility] Address [address] [facility] [place] [address] Phone [phone] Care Team Providers Care Site Head Name Role Phone Shelli Ritter MD Primary Care Provide r Reason for Visit * Reason Onset Date Comments No Show 02/16/2024 Encounter Details Date Type Department Care Team (Late st Contact Info) Description 02/16/2024 Telephone Hematology/Oncology [facility] [place] [address] [facility] [place] [address] Cuate Bowman MD [facility] [address] No Show Allergies No known active allergiesdocumented as of this encounter (statuses as of 03/22/2024) Medications Medication Sig Dispensed Refills Start Date [...] as of this encounter (statuses as of 03/22/2024) Active Problems Problem Noted Date Diagnosed Date [...] as of this encounter (statuses as of 03/22/2024) Resolved Problems Problem Noted Date Diagnosed Date Resolved Date Alcohol withdrawal 06/29/2017 0 Bipolar disorder 11/26/2013 10/28/2020 Alcohol related seizure 11/26/201302/2020 HTN, goal below 140/90 04/05/200806/27 Overview: Modified per HTN Taxonomy. Peptic ulcer 04/05/2008 08/28/2019 documented as of this encounter (statuses as of 03/22/2024) Immunizations Name Administration Dates Next Due COVID-19 [...] No 07/18/2023 Does the household have a [facility] source of income? (Household - for ages [...] Telephone Encounter - Maritza Parks OSA - 03/22/2024 8:37 AM EDT Left message x2 * Telephone Encounter - Maritza Parks OSA [...] 1:00 PM EDT Office Visit Family Medicine [address] [place] [phone] Shelli Ritter MD [address] [place] [address] [place] [address] 04/16/2024 10:20 AM EDT Office Visit Rheumatology [address] [place] [address] Live Spann MD [address] [place] [address] Health Maintenance Due Date Last Done Comments HPV/Co-Test 1993 Cologuard 01/27/2008 Fecal Occult Blood Test 01/27/2008 Sigmoidoscopy 01/27/2008 Zoster Vaccines (1 of 2) 2013 Cervical Cancer Screening 10/20/2013 Pap Smear 10/20/2013 10/20/2010 Pneumococcal Vaccine: Pediatrics (0 to 5 Years) and At-Risk Patients (6 to 64 Years) (2 of 2 - PCV) 03/17/2019 03/17/2018 Depression Screening 04/22/2021 04/22/2020 COVID-19 Vaccine (3 - season) 2023 10/24/2020, 09/29/2020 Mammogram 12/14/2023 12/13/2022, [...] D LEVEL ONCE IN A LIFETIME-USE SMARTSET# [id number] Completed 05/04/2021, 09/01/2010 Lung Cancer Screening Completed [...] this encounter Medical Devices Implanted Type Area Hearing Dog Trainer Device Identifier Shelf Expiration Date Model / Serial / Lot Power Port 8fr Sngl Lumen Plas - [id number] Implanted:Qty : 1 on 04/21/2023 by Artemio Bynum DO at OR [facility] Right: Chest CR BARD : PERIPHERAL VASCULAR 06/21/2024 [id number] / / [id number] Power Port 8fr Sngl Lumen Plas - [id number] Implanted:Qty : 1 on 04/21/2023 by Artemio Bynum DO at OR [facility] CR BARD : PERIPHERAL VASCULAR [id number] 06/21/2024 [id number] / / [id number] documented as of this encounter Advance Directives Healthcare Agents on File Name Relationship Healthcare Agent Relationshi p Communication Olivier Root Spouse Health Care Repr esentative (appointed verbally by patient or by statute hierarchy) Care Teams Site Head Relationship Specialty Start Date End Date Shelli Ritter MD [address] [place] [address] [place] [address] PCP - General Family Medicine 10/30/15 documented as of this encounter
--- OUTSIDE RECORDS SUMMARY | 2024-03-22 23:04 | External Medical Summary ---
Author Name Unknown Address Unknown Organization K01:LABORATORY [facility] [place] - [facility] [address] [facility] [address] [place] [address] Laboratory Report Ordering Provider Test Date Status LESLIE PADRON 11/02/2023 10:35:00 Final Observation Date Value Abnormality Reference (Units ) Status WBC, Total 11/02/2023 10:35:00 1.47 Below low normal 4.00-10.80 (K/uL) Final RBC 11/02/2023 10:35:00 2.94 3.85-5.15 (M/uL) Final Hemoglobin 11/02/2023 10:35:00 9.5 Below low normal 12.0-15.3 (g/dL) Final HCT 11/02/2023 10:35:00 27.6 Below low normal 36.0-45.2 (%) Final MCV 11/02/2023 10:35:00 93.9 81.5-97.5 (fL) Final MCH 11/02/2023 10:35:00 32.3 27.0-34.0 (pg) Final MCHC 11/02/2023 10:35:00 34.4 32.0-36.0 (g/dL) Final RDW 11/02/2023 10:35:00 13.9 11.5-15.5 (%) Final Platelets 11/02/2023 10:35:00 136 Below low normal 140-400 (K/uL) Final MPV 11/02/2023 10:35:00 10.7 6.6-11.1 (fL) Final Nucleated erythrocytes/100 leukocytes [Ratio] in Blood by Automated count 11/02/2023 10:35:00 0 <=0 (/100 WBCs) Final Performing Location LABORATORY [facility] [place] - [address] [place] [address]
--- OUTSIDE RECORDS SUMMARY | 2024-03-22 23:04 | External Medical Summary | Summary of Care ---
Author Name Unknown Organization [facility] Address [address] [place] [address] Phone [phone] Care Team Providers Care Whip Sawyer Name Role Phone Vito Nelson MD Primary Care Provide r Reason for Visit * Reason Comments eRx-Medication Refill Encounter Details Date Type Department Care Team (Late st Contact Info) Description 12/19/2023 Refill Family Medicine [address] [phone] Charline Hope PAJamaal [address] [place] [id number] Generalized anxiety disorder Allergies No known active allergiesdocumented as of this encounter (statuses as of 12/21/2023) Medications Medication Sig Dispensed Refills Start Date End Date Status Lisinopril 40 MG Oral TabletIndication s:HTN, goal below 140/90 TAKE 1 TABLET BY MOUTH EVERY DAY 90 Tablet 3 01/28/2023 Active Thiamine HCl 100 MG Oral Tablet (vitamin B-1) TAKE 1 TABLET BY MOUTH EVERY DAY IN THE MORNING 90 Tablet 1 01/27/2023 Active Udderly Smooth Extra Care 20 External CreamIndications :Rectal cancer (HCC) Apply topically to hands and feet 2 times a day 228 g 3 02/10/2023 Active Cyanocobalamin 500 MCG Oral Tablet Take 1 Tablet by mouth in the morning. 0 Active Ferrous Sulfate 325 (65 Fe) MG Oral Tablet (Feosol)Indicati ons:Iron deficiency anemia due to chronic blood loss Take 1 Tablet by mouth in the morning. 90 Tablet 1 06/24/2023 Active oxyCODONE HCl 5 MG Oral Tablet (Oxy IR)Indications:C ompression fracture of T12 vertebra with routine healing, subsequent encounter Take 1 Tablet by mouth every 6 hours as needed for Pain, Severe. 10 Tablet 0 07/08/2023 Active Magnesium Oxide -Mg Supplement 400 (240 Mg) MG Oral Tablet (Mag-Ox)Indicati ons:Hypomagnesem ia TAKE 2 TABLETS BY MOUTH EVERY DAY 180 Tablet 1 07/12/2023 Active Pantoprazole Sodium 40 MG Oral Tablet Delayed Release (Protonix) TAKE 1 TABLET BY MOUTH EVERY DAY IN THE MORNING 90 Tablet 1 08/16/2023 Active Folic Acid 1 MG Oral Tablet TAKE 1 TABLET BY MOUTH EVERY DAY IN THE MORNING 90 Tablet 1 08/16/2023 Active Metoprolol Tartrate 50 MG Oral Tablet [...] BEFORE BEDTIME 180 Tablet 1 12/21/2023 Active busPIRone HCl 15 MG Oral Tablet (Buspar)Indicati ons:Generalized anxiety disorder Take 1 Tablet by mouth in the morning and 1 Tablet before bedtime. 180 Tablet 1 04/18/2023 4 Discontinued documented as of this encounter (statuses as of 12/21/2023) Active Problems Problem Noted Date Diagnosed Date [...] as of this encounter (statuses as of 12/21/2023) Resolved Problems Problem Noted Date Diagnosed Date Resolved Date Alcohol withdrawal 06/29/2017 0 Bipolar disorder 11/26/2013 10/28/2020 Alcohol related seizure 11/26/201302/2020 HTN, goal below 140/90 04/05/200806/27 Overview: Modified per HTN Taxonomy. Peptic ulcer 04/05/2008 08/28/2019 documented as of this encounter (statuses as of 12/21/2023) Immunizations Name Administration Dates Next Due COVID-19 mRNA, LNP-s, No Pre serve, 2-Dose Series (Moderna) 10/24/2020,09/29/2020 Pneumococcal Polysaccharide PPV23 (Pneumovax) TDAP (age 10 and older)(Boostrix) 08/28/2019 TDAP (age 11 and older)(Adacel) 04/05/2008 documented as of this encounter Social [...] encounter Miscellaneous Notes * Telephone Encounter - Vito Nelson MD - 12/21/2023 8:48 AM EDT Signed Prescriptions: Disp Refills busPIRone HCl 15 MG Oral Tablet (Buspar) 180 Ta*1 Sig: TAKE 1 TABLET BY MOUTH IN THE MORNING AND BEFORE BEDTIME Authorizing Provider: VITO NELSON * Telephone Encounter - Isabella Jackson RPh - 12/21/2023 8:31 AM EDTPending Prescriptions: Disp Refills busPIRone HCl 15 MG Oral Tablet [Pharmacy *180 Ta*1 Sig: TAKE 1 TABLET BY MOUTH IN THE MORNING AND BEFORE BEDTIME * Telephone Encounter - Isabella Jackson RPh - 12/21/2023 8:31 AM EDT [facility] is currently not authorized to approve refills for the pended medication(s) per refill protocol. Please approve if appropriate. Thanks, Isabella Jackson PharmD Clinical Pharmacist [facility]ized [facility] Services ([facility]) [phone] 12/21/2023, 8:31 AM * Telephone Encounter - Isabella Jackson RPh - 12/21/2023 8:31 AM EDT Pending Prescriptions: Disp Refills busPIRone HCl 15 MG Oral Tablet (Buspar) *180 Ta*1 Sig: TAKE 1 TABLET BY MOUTH IN THE MORNING AND BEFORE BEDTIME Last Visit: 06/24/2023 (in office), Visit date not found (telemedicine) Next Visit: 04/09/2024 If no future appointments scheduled, and last appointment is greater than a year ago, please schedule patient for a follow-up appointment Last date the medication was ordered: 04/18/23 Pharmacy: [id number] [facility] Is this request for a controlled substance? No Urine Drug Screen: Results for orders placed [...] Care Team (Late st Contact Info) Description 01/11/2024 1:00 PM EDT Office Visit General Surgery, [facility] [address] [facility] [place] [address] Monae Ruiz MD [address] [place] [address] 02/21/2024 8:45 AM EDT Office Visit Hematology/Oncology [facility] [place] [address] [facility] [place] [phone] Cuate Bowman MD [address] [facility] [place] [address] 04/09/2024 1:00 PM EDT Office Visit Family Medicine [address] [place] [phone] Vito Nelson MD [address] [place] [address] [place] [address] 04/16/2024 10:20 AM EDT Office Visit Rheumatology [address] [place] [phone] Live Spann MD [address] [place] [address] [place], [place] [address] Health Maintenance Due Date Last Done Comments [...] 2023 10/24/2020, 09/29/2020 Mammogram 12/14/2023 12/13/2022, 11/21, 12/11/2021, Additional history exists DXA Scan 03/30/2024 03/30/2022, 03/30/2022 Influenza Vaccine (FLU shot) (Season Ended) 2024 GFR 11/01/2024 11/02/2023, 05/23, 06/10/2023, Additional history exists Albumin/Creatinine Ratio 10/19/2025 10/19/2022 Lipid Panel 04/26/2028 04/26/2023, 02/20, 02/25/2011, Additional history exists DTaP,Tdap,and Td Vaccines (3 - Td or Tdap) 08/28/2029 08/28/2019, 04/05/2008 Colonoscopy 12/27/2032 12/27/2022 Colorectal Cancer Screening 12/27/2032 VITAMIN D LEVEL ONCE IN A LIFETIME-USE SMARTSET# [id number] Completed 05/04/2021, 09/01/2010 Lung Cancer Screening Completed 2023 , 12/27/2022, 11/09/2022 GARDASIL-HPV IMMUNIZATION SERIES Aged Out No longer eligible based on patient's age to complete this topic Hepatitis B Aged Out No longer eligi ble based on patient's age to complete this topic MENINGOCOCCAL (MENACTRA/MENVEO) Aged Out No longer eligible based on patient's age to complete this topic documented as of this encounter Medical Devices Implanted Type Area Paper Final Inspector Device Identifier Shelf Expiration Date Model / Serial / Lot Power Port 8fr Sngl Lumen Plas - [id number] Implanted:Qty : 1 on 04/21/2023 by Artemio Bynum DO at OR [facility] Right: Chest CR BARD : PERIPHERAL VASCULAR 06/21/2024 [id number] / / [id number] Power Port 8fr Sngl Lumen Plas - [id number] Implanted:Qty : 1 on 04/21/2023 by Artemio Bynum DO at OR [facility] CR BARD : PERIPHERAL VASCULAR [id number] 06/21/2024 [id number] / / [id number] documented as of this encounter Visit Diagnoses Diagnosis Generalized anxiety disorder documented in this encounter Advance Directives Healthcare Agents on File Name Relationship Healthcare Agent Relationshi p Communication Olivier Root Spouse Health Care Repr esentative (appointed verbally by patient or by statute hierarchy) Care Teams Whip Sawyer Relationship Specialty Start Date End Date Vito Nelson MD [address] [place] [address] [place] [address] PCP - General Family Medicine 10/30/15 documented as of this encounter
--- OUTSIDE RECORDS SUMMARY | 2024-03-22 23:04 | External Medical Summary | Summary of Care ---
Author Name Unknown Organization [facility] Address [address] [facility] [place] [address] Phone [phone] Care Team Providers Care Washer Repairman Name Role Phone Vito Nelson MD Primary Care Provide r Reason for Visit * Reason Comments eRx-Medication Refill Encounter Details Date Type Department Care Team (Late st Contact Info) Description 11/05/2023 Refill Family Medicine [address] [phone] Vito Nelson MD [address] [place], [place] [address] [address] GENERALIZED ANXIETY DIS Allergies No known active allergiesdocumented as of this encounter (statuses as of 11/06/2023) Medications Medication Sig Dispensed Refills Start Date [...] a day 228 g 3 02/10/2023 Active busPIRone HCl 15 MG Oral Tablet (Buspar)Indicati ons:Generalized anxiety disorder Take 1 Tablet by mouth in the morning and 1 Tablet before bedtime. 180 Tablet 1 04/18/2023 Active Cyanocobalamin 500 MCG Oral Tablet Take [...] ANXIETY/DEPRESS ION 90 Tablet 3 11/06/2023 Active Sertraline HCl 100 MG Oral Tablet (Zoloft)Indicati ons:Generalized anxiety disorder TAKE 1 TABLET BY MOUTH DAILY FOR ANXIETY/DEPRESS ION 90 Tablet 3 12/31/2022 4 Discontinued documented as of this encounter (statuses as of 11/06/2023) Active Problems Problem Noted Date Diagnosed Date [...] as of this encounter (statuses as of 11/06/2023) Resolved Problems Problem Noted Date Diagnosed Date Resolved Date Alcohol withdrawal 06/29/2017 0 Bipolar disorder 11/26/2013 10/28/2020 Alcohol related seizure 11/26/201302/2020 HTN, goal below 140/90 04/05/200806/27 Overview: Modified per HTN Taxonomy. Peptic ulcer 04/05/2008 08/28/2019 documented as of this encounter (statuses as of 11/06/2023) Immunizations Name Administration Dates Next Due COVID-19 [...] encounter Miscellaneous Notes * Telephone Encounter - Diana Solorzano RPh - 11/06/2023 11:07 AM EDTSigned Prescriptions: Disp Refills Sertraline HCl 100 MG Oral Tablet (Zoloft) 90 Tab*3 Sig: TAKE 1 TABLET BY MOUTH DAILY FOR ANXIETY/DEPRESSIONAuthorizing Provider: VITO NELSONOrderrobe User: DIANA SOLORZANO documented in this encounter Plan of Treatment Upcoming Encounters Date Type Department Care Team (Late st Contact Info) Description 11/15/2023 8:45 AM EDT Office Visit Hematology/Oncology [facility] [address] [place] [phone] Cuate Bowman MD [address] [place] [address] 12/14/2023 10:15 AM EDT Office Visit General Surgery, [facility] [address] [place] [address] Monae Ruiz MD [address] [place], [place] [id number] 04/16/2024 10:20 AM EDT Office Visit Rheumatology [address] [place] [phone] Live Spann MD [facility] [place] [address] Health Maintenance Due Date Last Done Comments [...] Vaccine (3 - season) 2023 10/24/2020, 09/29/2020 Influenza Vaccine (FLU shot) (#1) 2023 *NEPHROLOGY REFERRAL DUE TO RESISTANT HTN 07/08/2023 Mammogram 12/14/2023 12/13/2022, 11/21, 12/11/2021, Additional history exists DXA Scan 03/30/2024 03/30/2022, 03/30/2022 GFR 11/01/2024 11/02/2023, 05/23, 06/10/2023, Additional history exists Albumin/Creatinine Ratio 10/19/2025 10/19/2022 Lipid Panel 04/26/2028 04/26/2023, 02/20, 02/25/2011, Additional history exists DTaP,Tdap,and Td Vaccines (3 - Td or Tdap) 08/28/2029 08/28/2019, 04/05/2008 Colonoscopy 12/27/2032 12/27/2022 Colorectal Cancer Screening 12/27/2032 VITAMIN D LEVEL ONCE IN A LIFETIME-USE SMARTSET# [id number] Completed 05/04/2021, 09/01/2010 LUNG CANCER SCREENING - USE SMARTSET [id number] Completed 2023, 12/27/2022, 11/09/2022 GARDASIL-HPV IMMUNIZATION SERIES Aged Out No longer eligible based on patient's age to complete this topic Hepatitis B Aged Out No longer eligi ble based on patient's age to complete this topic MENINGOCOCCAL (MENACTRA/MENVEO) Aged Out No longer eligible based on patient's age to complete this topic documented as of this encounter Medical Devices Implanted Type Area Contact Printer Dry Film Device Identifier Shelf Expiration Date Model / Serial / Lot Power Port 8fr Sngl Lumen Plas - [id number] Implanted:Qty : 1 on 04/21/2023 by Artemio Bynum DO at OR [facility] Right: Chest CR BARD : PERIPHERAL VASCULAR 06/21/2024 [id number] / / [id number] Power Port 8fr Sngl Lumen Plas - [id number] Implanted:Qty : 1 on 04/21/2023 by Artemio Bynum DO at OR [facility] CR BARD : PERIPHERAL VASCULAR [id number] 06/21/2024 [id number] / / [id number] documented as of this encounter Visit Diagnoses Diagnosis GENERALIZED ANXIETY DIS Generalized anxiety disorder documented in this encounter Advance Directives Healthcare Agents on File Name Relationship Healthcare Agent Relationshi p Communication [facility] Spouse Health Care Repr esentative (appointed verbally by patient or by statute hierarchy) Care Teams Washer Repairman Relationship Specialty Start Date End Date Vito Nelson MD [address] [place] [address] [place] [address] PCP - General Family Medicine 10/30/15 documented as of this encounter
--- OUTSIDE RECORDS SUMMARY | 2024-03-22 23:04 | External Medical Summary | Summary of Care ---
Author Name Unknown Organization [facility] Address [address] [facility] [place] [address] Phone [phone] Care Team Providers Care Installer Soft Top Name Role Phone Vito Nelson MD Primary Care Provide r Reason for Visit * Reason Comments eRx-Medication Refill Encounter Details Date Type Department Care Team (Late st Contact Info) Description 02/29/2024 Refill Family Medicine [address] [phone] Vito Nelson MD [address] [place], [place] [address] [id number] Iron deficiency anemia due to chronic blood loss Allergies No known active allergiesdocumented as of this encounter (statuses as of 03/01/2024) Medications Medication Sig Dispensed Refills Start Date [...] THE MORNING 90 Tablet 1 03/01/2024 Active Ferrous Sulfate 325 (65 Fe) MG [...] as of this encounter (statuses as of 03/01/2024) Active Problems Problem Noted Date Diagnosed Date [...] as of this encounter (statuses as of 03/01/2024) Resolved Problems Problem Noted Date Diagnosed Date Resolved Date Alcohol withdrawal 06/29/2017 Bipolar disorder 11/26/2013 10/28/2020 Alcohol related seizure 11/26/201302/2020 HTN, goal below 140/90 04/05/200806/27 Overview: Modified per HTN Taxonomy. Peptic ulcer 04/05/2008 08/28/2019 documented as of this encounter (statuses as of 03/01/2024) Immunizations Name Administration Dates Next Due COVID-19 [...] encounter Miscellaneous Notes * Telephone Encounter - Bob Carvalho RPh - 03/01/2024 2:51 PM EDTSigned Prescriptions: Disp Refills Ferrous Sulfate 325 (65 Fe) MG Oral Tablet*90 Tab*1 Sig: TAKE 1 TABLET BY MOUTH EVERY DAY IN THE MORNINGAuthorizing Provider: VITO NELSON User:BOB CARVALHO Folic Acid 1 MG Oral Tablet 90 Tab*1 Sig: TAKE 1 TABLET BY MOUTH EVERY DAY IN THE MORNINGAuthorizing Provider: VITO NELSON User: BOB CARVALHO Pantoprazole Sodium 40 MG Oral Tablet Desiree*90 Tab*1 Sig: TAKE 1 TABLET BY MOUTH EVERY DAY IN THE MORNINGAuthorizing Provider: VITO NELSON User: BOB CARVALHO documented in this encounter Plan of Treatment Upcoming Encounters Date Type Department Care Team (Late st Contact Info) Description 04/09/2024 1:00 PM EDT Office Visit Family Medicine [address] [place] [phone] Vito Nelson MD [address] [place] [address] [place] [address] 04/16/2024 10:20 AM EDT Office Visit Rheumatology [address] [place] [phone] Live Spann MD [address] [facility] [phone] Health Maintenance Due Date Last Done Comments [...] D LEVEL ONCE IN A LIFETIME-USE SMARTSET# [id number] Completed 05/04/2021, 09/01/2010 Lung Cancer Screening Completed [...] this encounter Medical Devices Implanted Type Area Drapery Counselor Device Identifier Shelf Expiration Date Model / Serial / Lot Power Port 8fr Sngl Lumen Plas - [id number] Implanted:Qty : 1 on 04/21/2023 by Artemio Bynum DO at OR [facility] Right: Chest CR BARD : PERIPHERAL VASCULAR 06/21/2024 [id number] / / [id number] Power Port 8fr Sngl Lumen Plas - [id number] Implanted:Qty : 1 on 04/21/2023 by Artemio Bynum DO at OR [facility] CR BARD : PERIPHERAL VASCULAR [id number] 06/21/2024 [id number] / / [id number] documented as of this encounter Visit Diagnoses Diagnosis Iron deficiency anemia due to chronic blood loss Iron deficiency anemia secondary to blood loss (chronic) documented in this encounter Advance Directives Healthcare Agents on File Name Relationship Healthcare Agent Relationshi p Communication Olivier Root Spouse Health Care Repr esentative (appointed verbally by patient or by statute hierarchy) Care Teams Installer Soft Top Relationship Specialty Start Date End Date Vito Nelson MD [address] [place] [address] [place] [address] PCP - General Family Medicine 10/30/15 documented as of this encounter
--- OUTSIDE RECORDS SUMMARY | 2024-03-22 23:04 | External Medical Summary ---
Author Name Unknown Address Unknown Organization K01:LAB[facility]ATORY [facility] - [address] [facility] [address] [place] [address] Laboratory Report Ordering Provider Test Date Status LESLIE PADRON 11/02/2023 10:35:00 Final Observation Date Value Abnormality Reference (Units ) Status SYNC LEUKOCYTES IN BLOOD BY AUTOMATED COUNT 11/02/2023 10:35:00 1.47 Below low normal 4.00-10.80 (K/uL) Final Neutrophils/100 leukocytes in Blood by Manual count 11/02/2023 10:35:00 46.0 40.0-75.0 (%) Final Lymphocytes/100 leukocytes in Blood by Manual count 11/02/2023 10:35:00 38.0 18.0-42.0 (%) Final Monocytes/100 leukocytes in Blood by Manual count 11/02/2023 10:35:00 13.0 Above high normal 1.0-11.0 (%) Final Eosinophils/100 leukocytes in Blood by Manual count 11/02/2023 10:35:00 3.0 0.0-6.0 (%) Final Neutrophils [#/volume] in Blood by Manual count 11/02/2023 10:35:00 0.68 Below low normal 1.80-7.70 (K/uL) Final Lymphocytes [#/volume] in Blood by Manual count 11/02/2023 10:35:00 0.56 Below low normal 1.00-4.80 (K/uL) Final Monocytes [#/volume] in Blood by Manual count 11/02/2023 10:35:00 0.19 0.00-1.10 (K/uL) Final Eosinophils [#/volume] in Blood by Manual count 11/02/2023 10:35:00 0.04 0.00-0.70 (K/uL) Final Performing Location [facility] - [address] [place] [address]
--- OUTSIDE RECORDS SUMMARY | 2024-03-22 23:04 | External Medical Summary | Summary of Care ---
Author Name Unknown Organization [facility] Address [address] [facility] [address] Phone [phone] Care Team Providers Care Corporate Concierge Name Role Phone Shelli Ritter MD Primary Care Provide r Reason for Referral * Ancillary Services (Within 3 days (urgent)) - Authorized Specialty Diagnoses / Procedures Referred By Contjeannie t Referred To Contact Interior Design Principal Diagnoses Iron deficiency anemia due to chronic blood loss Rectal cancer (HCC) Shelli Ritter MD [address] [place] [address] [place] [id number] Referral ID Status Reason Start Date Expiration Date Visits Requested Visits Authorized [id number] Authorized Ancillary Services Required 10/31/2023 999 999 Question Answer Referral Priority Within 3 days (urgent) Where should this appointment be scheduled? Hilaria Comments Is Patient homebound? Yes All sections of this form must be filled out completely. Forms with missing or illegible information will be returned for completion. This form should not be modified in any way. Forms that have been modified will be returned. This form may not be submitted by a home health agency. It must be complete and submitted by the ordering provider. One full business day lead time is required and service will be scheduled based on the next service day for the [facility] Home Phlebotomy does not service every geographical location on a daily basis. Contact [facility] Client Services at to find out service days for a specific location. Medical Laboratory [facility] Patient Name: Amanda Ferrell : 1965 Sex: female Address [address] [facility] [place] [address] Provider: None? Shelli Ritter MD? Diagnosis: D50.0 Iron deficiency anemia due to chronic blood loss (primary encounter diagnosis) C20 Rectal cancer (HCC) Tests Requested CBC - one time. CMP - one time. Reason for Visit * Reason Onset Date Comments Order Request 10/27/2023 case management 10/27/2023 Referral 10/27/2023 Encounter Details Date Type Department Care Team (Late st Contact Info) Description 10/27/2023 Telephone Family Medicine [address] [place] [phone] Shelli Ritter MD [address] [place] [address] [place] [address] Order Request; case management; Referral Allergies No known active allergiesdocumented as of this encounter (statuses as of 11/01/2023) Medications Medication Sig Dispensed Refills Start Date End Date Status Sertraline HCl 100 MG Oral Tablet (Zoloft)Indications :Generalized anxiety disorder TAKE 1 TABLET BY MOUTH DAILY FOR ANXIETY/DEPRESSION 90 Tablet 3 12/31/2022 Active Lisinopril 40 MG Oral TabletIndications:H TN, [...] MG Oral Tablet (Buspar)Indications :Generalized anxiety disorder Take 1 Tablet by mouth [...] BEFORE BEDTIME 180 Tablet 3 09/16/2023 Active documented as of this encounter (statuses as of 11/01/2023) Active Problems Problem Noted Date Diagnosed Date [...] as of this encounter (statuses as of 11/01/2023) Resolved Problems Problem Noted Date Diagnosed Date Resolved Date Alcohol withdrawal 06/29/2017 Bipolar disorder 11/26/2013 10/28/2020 Alcohol related seizure 11/26/201302/2020 HTN, goal below 140/90 04/05/200806/27 Overview: Modified per HTN Taxonomy. Peptic ulcer 04/05/2008 08/28/2019 documented as of this encounter (statuses as of 11/01/2023) Immunizations Name Administration Dates Next Due COVID-19 [...] Telephone Encounter - Maritza Parks OSA - 11/01/2023 9:42 AM EDT Left message * Telephone Encounter - Alondra Armenta RN - 11/01/2023 9:36 AM EDT Patient needs a follow up appt with Dr Bowman * Telephone Encounter - Christie Bradley RN - 10/31/2023 1:53 PM EDT please call pt to re-sched oncology appt * Telephone Encounter - Yanci Ledezma RN - 10/31/2023 12:03 PM EDT Attempted to contact patient to see if she needed assist with scheduling an oncology appointment. No answer. Left message requesting a call back. [facility]. Home phlebotomy referral sent, along with lab orders. * Telephone Encounter - Shelli Ritter MD - 10/31/2023 10:52 AM EDT Please assist her rescheduling with oncology as well. Ordered CBC and CMP. Mobile lab can draw * Telephone Encounter - Rosa Crook PA-C - 10/28/2023 2:24 PM EST Keep appt with PCP on 12/01. Anything acute, she needs seen sooner. * Telephone Encounter - Yanci Ledezma RN - 10/27/2023 6:30 PM EST FYI: Patient has not gone for her chemo x 3-4 months. Drinking beer for most of her liquid intake. Not eating well. Not getting out of bed except to go to the bathroom - with assist of spouse; and lets spouse wash her hair while sitting on a stool at the bathroom sink sometimes. Reports she cannot stand, her legs are too weak to hold her up. Reports blood in stools. Not a lot, but sometimes "little bits" of bright blood, and other times stool is black/dark - but always signs of blood with each BM. Dizziness only with sudden position changes. Denies increased shortness of breath. No reports of chest pain, palpitations, or fast heart rate. Offered home physical therapy - declined. Asked if she was interested in hospice since not treating her cancer, not eating, not getting out of bed much, etc? She declined. States she plans to call oncologist for an appointment, as she thinks she wants to give chemo another try. She is open to mobile lab coming to do some bloodwork - would you like to order any, and have mobile lab draw it? Please advise...... documented in this encounter Plan of Treatment Upcoming Encounters Date Type Department Care Team (Late st Contact Info) Description 11/02/2023 10:20 AM EDT Laboratory Lab Mobile Phlebotomy [facility] [address] [place] [address] [facility] Mobile Home Draw [address] [place] [address] 12/02/2023 10:40 AM EDT Office Visit Family Medicine [address] [place] [phone] Shelli Ritter MD [address] [place] [address] [place] [address] 12/14/2023 10:15 AM EDT Office Visit General Surgery, [facility] [address] [facility] [place] [address] Monae Ruiz MD [address] [place] [address] 04/16/2024 10:20 AM EDT Office Visit Rheumatology [address] [place] [phone] Live Spann MD [address] [facility] [address] Scheduled Orders Name Type Priority Associated Diagnoses Orde r Schedule CBC WITH WBC DIFFERENTIAL Lab Routine Iron deficiency anemia due to chronic blood loss Rectal cancer (HCC) Expected: 10/31/2023 (Approximate), Expires: 10/30/2024 COMPREHENSIVE METABOLIC PANEL Lab Routine Iron deficiency anemia due to chronic blood loss Rectal cancer (HCC) Expected: 10/31/2023 (Approximate), Expires: 10/30/2024 Scheduled Referrals Name Type Priority Associated Diagnoses Orde r Schedule HOME PHLEBOTOMY REFERRAL OP Referral Within 3 days (urgent) Iron deficiency anemia due to chronic blood loss Rectal cancer (HCC) Ordered: 10/31/2023 Health Maintenance Due Date Last Done Comments [...] (3 - 2022- season) 2023 10/24/2020, 09/29/2020 Influenza Vaccine (FLU shot) (#1) 2023 *NEPHROLOGY REFERRAL DUE TO RESISTANT HTN 07/08/2023 Mammogram 12/14/2023 12/13/2022, 11/21, 12/11/2021, Additional history exists DXA Scan 03/30/2024 03/30/2022, 03/30/2022 GFR 06/17/2024 06/17/2023, 05/23, 05/31/2023, Additional history exists Albumin/Creatinine Ratio 10/19/2025 10/19/2022 Lipid Panel 04/26/2028 04/26/2023, 02/20, 02/25/2011, Additional history exists DTaP,Tdap,and Td Vaccines (3 - Td or Tdap) 08/28/2029 08/28/2019, 04/05/2008 Colonoscopy 12/27/2032 12/27/2022 Colorectal Cancer Screening 12/27/2032 VITAMIN D LEVEL ONCE IN A LIFETIME-USE SMARTSET# [id number] Completed 05/04/2021, 09/01/2010 LUNG CANCER SCREENING - USE SMARTSET [id number] Completed 2023, 12/27/2022, 11/09/2022 GARDASIL-HPV IMMUNIZATION SERIES Aged Out No longer eligible based on patient's age to complete this topic Hepatitis B Aged Out No longer eligi ble based on patient's age to complete this topic MENINGOCOCCAL (MENACTRA/MENVEO) Aged Out No longer eligible based on patient's age to complete this topic documented as of this encounter Medical Devices Implanted Type Area Scaling Machine Operator Device Identifier Shelf Expiration Date Model / Serial / Lot Power Port 8fr Sngl Lumen Plas - [id number] Implanted:Qty : 1 on 04/21/2023 by Artemio Bynum DO at OR [facility] Right: Chest CR BARD : PERIPHERAL VASCULAR 06/21/2024 [id number] / / [id number] Power Port 8fr Sngl Lumen Plas - [id number] Implanted:Qty : 1 on 04/21/2023 by Artemio Bynum DO at OR [facility] CR BARD : PERIPHERAL VASCULAR [id number] 06/21/2024 [id number] / / [id number] documented as of this encounter Visit Diagnoses Diagnosis Iron deficiency anemia due to chronic blood loss- Primary Iron deficiency anemia secondary to blood loss (chronic) Rectal cancer (HCC) Malignant neoplasm of rectum documented in this encounter Advance Directives Healthcare Agents on File Name Relationship Healthcare Agent Relationshi p Communication Olivier Root Spouse Health Care Repr esentative (appointed verbally by patient or by statute hierarchy) Care Teams Corporate Concierge Relationship Specialty Start Date End Date Shelli Ritter MD [address] [place] [address] [place] [address] PCP - General Family Medicine 10/30/15 documented as of this encounter
--- OUTSIDE RECORDS SUMMARY | 2024-03-22 23:04 | External Medical Summary | Summary of Care ---
Author Name Unknown Organization [facility] Address [address] [facility] [place] [address] Phone [phone] Care Team Providers Care Camera Engineer Name Role Phone Shelli Ritter MD Primary Care Provide r Reason for Visit * Reason Onset Date Comments Test Results 11/04/2023 case management 11/04/2023 Encounter Details Date Type Department Care Team (Late st Contact Info) Description 11/04/2023 Telephone Family Medicine [address] [phone] Shelli Ritter MD [address] [place] [address] [place] [address] Test Results; case management Allergies No known active allergiesdocumented as of this encounter (statuses as of 02/03/2024) Medications Medication Sig Dispensed Refills Start Date [...] Tablet by mouth in the morning. Active Ferrous Sulfate 325 (65 Fe) MG [...] BEFORE BEDTIME 180 Tablet 3 09/16/2023 Active busPIRone HCl 15 MG Oral Tablet (Buspar)Indicati ons:Generalized anxiety disorder Take 1 Tablet by mouth in the morning and 1 Tablet before bedtime. 180 Tablet 1 04/18/2023 4 Discontinued documented as of this encounter (statuses as of 02/03/2024) Active Problems Problem Noted Date Diagnosed Date [...] as of this encounter (statuses as of 02/03/2024) Resolved Problems Problem Noted Date Diagnosed Date Resolved Date Alcohol withdrawal 06/29/2017 0 Bipolar disorder 11/26/2013 10/28/2020 Alcohol related seizure 11/26/201302/2020 HTN, goal below 140/90 04/05/200806/27 Overview: Modified per HTN Taxonomy. Peptic ulcer 04/05/2008 08/28/2019 documented as of this encounter (statuses as of 02/03/2024) Immunizations Name Administration Dates Next Due COVID-19 [...] encounter Miscellaneous Notes * Telephone Encounter - Yanci Ledezma RN - 11/14/2023 4:26 PM EDT Received voicemail from patient. -reports she received the information on Advance Directives that CM mailed to her. She will work [employer]. -oncology appointment in place for 11/15/23. Plans to keep as scheduled. * Telephone Encounter - Yanci Ledezma RN - 11/04/2023 2:28 PM EDT Attempted to contact patient with message from provider. No answer to home phone, message left earlier requesting call back. No answer to cell phone, no message left as voicemail answers as "Nkechi". [facility] x 2. * Telephone Encounter - Yanci Ledezma RN - 11/04/2023 10:57 AM EDT Attempted to contact patient, no answer. Left message requesting call back. [facility]. * Telephone Encounter - Shelli Ritter MD - 11/04/2023 8:48 AM EDT Please let patient know her labs are fairly stable. All of her blood counts are low but the hemoglobin is improved at 9.5 so no transfusion is needed. Make sure she follows up with Dr. Bwoman as scheduled. Her sodium is a little bit low again and would recommend she not drink alcohol so that this can come back up. documented in this encounter Plan of Treatment Upcoming Encounters Date Type Department Care Team (Late st Contact Info) Description 02/21/2024 8:45 AM EDT Office Visit Hematology/Oncology [facility] [address] [place] [phone] Cuate Bowman MD [address] [place] [address] 04/09/2024 1:00 PM EDT Office Visit Family Medicine [address] [place] [phone] Shelli Ritter MD [address] [place] [address] [place] [address] 04/16/2024 10:20 AM EDT Office Visit Rheumatology [address] [place] [phone] Live Spann MD [facility] [place] [employer] [place] [address] Health Maintenance Due Date Last Done Comments [...] Scan 03/30/2024 03/30/2022 Influenza Vaccine (FLU shot) (Season Ended) 2024 GFR 11/01/2024 11/02/2023, 05/23, 06/10/2023, Additional history exists Albumin/Creatinine Ratio 10/19/2025 10/19/2022 Lipid Panel 04/26/2028 04/26/2023, 02/20, 02/25/2011, Additional history exists DTaP,Tdap,and Td Vaccines (3 - Td or Tdap) 08/28/2029 08/28/2019, 04/05/2008 Colonoscopy 12/27/2032 12/27/2022 Colorectal Cancer Screening 12/27/2032 VITAMIN D LEVEL ONCE IN A LIFETIME-USE SMARTSET# [id number] Completed 05/04/2021, 09/01/2010 Lung Cancer Screening Completed [...] this encounter Medical Devices Implanted Type Area Gameplay Programmer Device Identifier Shelf Expiration Date Model / Serial / Lot Power Port 8fr Sngl Lumen Plas - [id number] Implanted:Qty : 1 on 04/21/2023 by Artemio Bynum DO at OR [facility] Right: Chest CR BARD : PERIPHERAL VASCULAR 06/21/2024 [id number] / / [id number] Power Port 8fr Sngl Lumen Plas - [id number] Implanted:Qty : 1 on 04/21/2023 by Artemio Bynum DO at OR [facility] CR BARD : PERIPHERAL VASCULAR [id number] 06/21/2024 [id number] / / [id number] documented as of this encounter Visit Diagnoses Diagnosis Need for case management follow-up- Primary documented in this encounter Advance Directives Healthcare Agents on File Name Relationship Healthcare Agent Relationshi p Communication Olivier Root Spouse Health Care Repr esentative (appointed verbally by patient or by statute hierarchy) Care Teams Camera Engineer Relationship Specialty Start Date End Date Shelli Ritter MD [address] [place] [address] [place] [address] PCP - General Family Medicine 10/30/15 documented as of this encounter
--- OUTSIDE RECORDS SUMMARY | 2024-03-22 23:04 | External Medical Summary | Summary of Care ---
Author Name Unknown Organization [facility] Address [address] [place] [address] Phone [phone] Care Team Providers Care Senior Research Analyst Name Role Phone Shelli Ritter MD Primary Care Provide r Encounter Details Date Type Department Care Team (Late st Contact Info) Description 01/09/2024 Orders Only Outcomes Research Department [address] [place] [address] Rosemary Hebert CHRA MyCode Research Other*[id number] Allergies No known active allergiesdocumented as of this encounter (statuses as of 01/09/2024) Medications Medication Sig Dispensed Refills Start Date End Date Status Lisinopril 40 MG Oral TabletIndications:H TN, goal [...] BEFORE BEDTIME 180 Tablet 1 12/21/2023 Active documented as of this encounter (statuses as of 01/09/2024) Active Problems Problem Noted Date Diagnosed Date [...] as of this encounter (statuses as of 01/09/2024) Resolved Problems Problem Noted Date Diagnosed Date Resolved Date Alcohol withdrawal 06/29/2017 0 Bipolar disorder 11/26/2013 10/28/2020 Alcohol related seizure 11/26/201302/2020 HTN, goal below 140/90 04/05/200806/27 Overview: Modified per HTN Taxonomy. Peptic ulcer 04/05/2008 08/28/2019 documented as of this encounter (statuses as of 01/09/2024) Immunizations Name Administration Dates Next Due COVID-19 [...] on file documented as of this encounter Plan of Treatment Upcoming Encounters Date Type Department Care Team (Late st Contact Info) Description 01/11/2024 1:00 PM EDT Office Visit General Surgery, [facility] [address] [facility] [place] [address] Monae Ruiz MD [address] [facility] [place] [address] 02/21/2024 8:45 AM EDT Office Visit Hematology/Oncology [facility] [address] [facility] [place], [place] [phone] Cuate Bowman MD [address] [facility] [place] [address] 04/09/2024 1:00 PM EDT Office Visit Family Medicine [address] [place] [phone] Shelli Ritter MD [address] [place] [address] [place] [address] 04/16/2024 10:20 AM EDT Office Visit Rheumatology [address] [place] [phone] Live Spann MD [address] [place] [address] [place] [address] Scheduled Orders Name Type Priority Associated Diagnoses Orde r Schedule MYCODE SUBSEQUENT ADULT Lab Routine MyCode Research Other*[id number] Every 6 Months for 2 Occurrences starting 01/09/2024 until 01/28/2025 Health Maintenance Due Date Last Done Comments [...] D LEVEL ONCE IN A LIFETIME-USE SMARTSET# [id number] Completed 05/04/2021, 09/01/2010 Lung Cancer Screening Completed [...] this encounter Medical Devices Implanted Type Area Harbor Boat Pilot Device Identifier Shelf Expiration Date Model / Serial / Lot Power Port 8fr Sngl Lumen Plas - [id number] Implanted:Qty : 1 on 04/21/2023 by Artemio Bynum DO at OR [facility] Right: Chest CR BARD : PERIPHERAL VASCULAR 06/21/2024 [id number] / / [id number] Power Port 8fr Sngl Lumen Plas - [id number] Implanted:Qty : 1 on 04/21/2023 by Artemio Bynum DO at OR [facility] CR BARD : PERIPHERAL VASCULAR [id number] 06/21/2024 [id number] / / [id number] documented as of this encounter Visit Diagnoses Diagnosis MyCode Research Other*[id number] documented in this encounter Advance Directives Healthcare Agents on File Name Relationship Healthcare Agent Relationshi p Communication Olivier Root Spouse Health Care Repr esentative (appointed verbally by patient or by statute hierarchy) Care Teams Senior Research Analyst Relationship Specialty Start Date End Date Shelli Ritter MD [address] [place] [address] [place] [phone] PCP - General Family Medicine 10/30/15 documented as of this encounter
--- OUTSIDE RECORDS SUMMARY | 2024-03-22 23:04 | External Medical Summary | Summary of Care ---
Author Name Unknown Organization [facility] Address [address] [facility] [address] Phone [phone] Care Team Providers Care Shell Shop Supervisor Name Role Phone Shelli Ritter MD Primary Care Provide r Reason for Referral * Ancillary Services (Within 3 days (urgent)) - Authorized Specialty Diagnoses / Procedures Referred By Contjeannie t Referred To Contact Regulatory Affairs Assistant Diagnoses Iron deficiency anemia due to chronic blood loss Rectal cancer (HCC) Shelli Ritter MD [address] [place] [address] [place] [address] Referral ID Status Reason Start Date Expiration Date Visits Requested Visits Authorized [id number] Authorized Ancillary Services Required 10/31/2023 999 999 [...] on the next service day for the [facility] Home Phlebotomy does not service every geographical location on a daily basis. Contact [facility] Client Services at to find out service days for a specific location. Medical Laboratory [facility] Patient Name: Amanda Ferrell : 1965 Sex: female Address [address] [facility] [place] [place] [place] [address] Provider: None? Shelli Ritter [...] Contact Info) Description 10/27/2023 Telephone Family Medicine [address] [place] [phone] Shelli Ritter MD [address] [place] [address] [place] [address] Order Request; case management; [...] encounter Miscellaneous Notes * Telephone Encounter - Alondra Armenta RN [...] answer. Left message requesting a call back. [facility]. Home phlebotomy referral sent, along with lab [...] 10:20 AM EDT Laboratory Lab Mobile Phlebotomy [facility] [address] [place] [address] [facility], [facility] Mobile Home Draw [address] [place] [address] 12/02/2023 10:40 AM EDT Office Visit Family Medicine [address] [place] [phone] Shelli Ritter MD [address] [place] [address] [place] [address] 12/14/2023 10:15 AM EDT Office Visit General Surgery, [facility] [address] [facility] [place] [address] Monae Ruiz MD [address] [place] [address] 04/16/2024 10:20 AM EDT Office Visit Rheumatology [address] [place] [phone] Live Spann MD [facility] [place] [address] Scheduled Orders Name Type Priority Associated Diagnoses [...] D LEVEL ONCE IN A LIFETIME-USE SMARTSET# [id number] Completed 05/04/2021, 09/01/2010 LUNG CANCER SCREENING - USE SMARTSET [id number] Completed 2023, 12/27/2022, 11/09/2022 GARDASIL-HPV IMMUNIZATION SERIES Aged Out No longer eligible based on patient's age to complete this topic Hepatitis B Aged Out No longer eligi ble based on patient's age to complete this topic MENINGOCOCCAL (MENACTRA/MENVEO) Aged Out No longer eligible based on patient's age to complete this topic documented as of this encounter Medical Devices Implanted Type Area Drum Stock Clerk Device Identifier Shelf Expiration Date Model / Serial / Lot Power Port 8fr Sngl Lumen Plas - [id number] Implanted:Qty : 1 on 04/21/2023 by Artemio Bynum DO at OR [facility] Right: Chest CR BARD : PERIPHERAL VASCULAR 06/21/2024 [id number] / / [id number] Power Port 8fr Sngl Lumen Plas - [id number] Implanted:Qty : 1 on 04/21/2023 by Artemio Bynum DO at OR [facility] CR BARD : PERIPHERAL VASCULAR [id number] 06/21/2024 [id number] / / [id number] documented as of this encounter Visit Diagnoses [...] patient or by statute hierarchy) Care Teams Shell Shop Supervisor Relationship Specialty Start Date End Date Shelli Ritter MD [address] [place] [address] [place] [address] PCP - General Family Medicine 10/30/15 documented as of this encounter
--- OUTSIDE RECORDS SUMMARY | 2024-03-22 23:04 | External Medical Summary ---
Author Name Unknown Address Unknown Organization K01:LABORATORY [facility] - [address] [facility] [place] [address] Laboratory Report Ordering Provider Test Date Status LESLIE PADRON 11/02/2023 10:35:00 Final Observation Date Value Abnormality Reference (Units ) Status BUN 11/02/2023 10:35:00 4 Below low normal 6-20 (mg/dL) Final Creatinine 11/02/2023 10:35:00 0.6 0.5-1.0 (mg/dL) Final Glomerular filtration rate/1.73 sq M.predicted [Volume Rate/Area] in Serum, Plasma or Blood by Creatinine-based formula (CKD-EPI) 11/02/2023 10:35:00 >90 >=60 (mL/min) Final eGFR is calculated based on the CKD-EPI 2020 equation SODIUM 11/02/2023 10:35:00 130 Below low normal 135 -146 (mmol/L) Final Potassium 11/02/2023 10:35:00 3.9 3.5-5.1 (m mol/L) Final Cl 11/02/2023 10:35:00 94 Below low normal 98- 107 (mmol/L) Final CO2 11/02/2023 10:35:00 22 22-32 (mmo l/L) Final Anion gap 11/02/2023 10:35:00 14 7-15 (mmol /L) Final Glucose 11/02/2023 10:35:00 74 70-120 (mg /dL) Final Albumin 11/02/2023 10:35:00 3.7 Below low normal 3.8 -5.0 (g/dL) Final AST (Aspartate aminotransferase) 11/02/2023 10:35:00 37 Above high normal 10-35 (U/L) Final Alk Phos 11/02/2023 10:35:00 125 35-130 (U/ L) Final Bilirubin, Total 11/02/2023 10:35:00 0.3 <=1 .2 (mg/dL) Final Calcium 11/02/2023 10:35:00 8.8 8.4-10.2 ( mg/dL) Final Protein 11/02/2023 10:35:00 5.8 Below low normal 6.0 -8.3 (g/dL) Final ALT (Alanine aminotransferase) 11/02/2023 10:35:00 13 10-35 (U/L) Eddie alonzo Performing Location LAB[facility]ORY [facility] - [facility] [address]o Griffith. [facility] [address]
--- OUTSIDE RECORDS SUMMARY | 2024-03-22 23:04 | External Medical Summary | Summary of Care ---
Author Name Unknown Organization [facility] Address [address] [facility] [place] [address] Phone [phone] Care Team Providers Care Factory Superintendent Name Role Phone Shelli Ritter MD Primary Care Provide r Reason for Referral * Ancillary Services (Within 3 days (urgent)) - Authorized Specialty Diagnoses / Procedures Referred By Contac t Referred To Contact Ballast Inspector Diagnoses Iron deficiency anemia due to chronic blood loss Rectal cancer (HCC) Shelli Ritter MD [address] [place] [address] [place] [address] Referral ID Status Reason Start Date Expiration Date Visits Requested Visits Authorized [id number] Authorized Ancillary Services Required 10/31/2023 999 999 [...] on the next service day for the [facility] Home Phlebotomy does not service every geographical location on a daily basis. Contact [facility] Client Services at to find out service days for a specific location. Medical Laboratory [facility] Patient Name: Amanda Ferrell : 1965 Sex: female Address [address] [facility] [place] [address] Provider: None? Shelli Ritter MD? Diagnosis: D50.0 Iron deficiency anemia due to chronic blood loss (primary encounter diagnosis) C20 Rectal cancer (HCC) Tests Requested CBC - one time. CMP - one time. Reason for Visit * Reason Onset Date Comments Order Request 10/27/2023 case management 10/27/2023 Referral 10/27/2023 Appointment 10/27/2023 Patient schedule d with Dr. Bowman. Encounter Details Date Type Department Care Team (Late st Contact Info) Description 10/27/[address] [phone] Shelli Ritter MD [address] [place] [address] [place] [phone] Order Request; case management; Referral; ... Allergies No known active allergiesdocumented as of this encounter (statuses as of 11/02/2023) Medications Medication Sig Dispensed Refills Start Date [...] as of this encounter (statuses as of 11/02/2023) Active Problems Problem Noted Date Diagnosed Date [...] as of this encounter (statuses as of 11/02/2023) Resolved Problems Problem Noted Date Diagnosed Date Resolved Date Alcohol withdrawal 06/29/2017 0 Bipolar disorder 11/26/2013 10/28/2020 Alcohol related seizure 11/26/201302/2020 HTN, goal below 140/90 04/05/200806/27 Overview: Modified per HTN Taxonomy. Peptic ulcer 04/05/2008 08/28/2019 documented as of this encounter (statuses as of 11/02/2023) Immunizations Name Administration Dates Next Due COVID-19 [...] encounter Miscellaneous Notes * Telephone Encounter - Kevin Styles OSA - 11/01/2023 2:43 PM EDT Patient has been notified of the message. Patient has been scheduled. * Telephone Encounter - Maritza Parks OSA [...] answer. Left message requesting a call back. [facility]. Home phlebotomy referral sent, along with [...] 10:20 AM EDT Laboratory Lab Mobile Phlebotomy [facility] [address] [place] [address] [facility], [facility] Mobile Home Draw [address] [place] [address] Iron deficiency anemia due to chronic blood loss; Rectal cancer (HCC) 11/15/2023 8:45 AM EDT Office Visit Hematology/Oncology [facility] [address] [place] [phone] Cuate Bowman MD [address] [place] [address] 12/02/2023 10:40 AM EDT Office Visit [address] [phone] Shelli Ritter MD [address] [place] [address] [place] [address] 12/14/2023 10:15 AM EDT Office Visit General Surgery, [facility] [address] [place] [address] Monae Ruiz MD [address] [place] [address] 04/16/2024 10:20 AM EDT Office Visit Rheumatology [address] [place] [phone] Live Spann MD [address] [place] [address] [place] [address] Scheduled Orders Name Type Priority Associated Diagnoses [...] 03/17/2018 Depression Screening 04/22/2021 04/22/2020 COVID-19 Vaccine ( season) 2023 10/24/2020, 09/29/2020 Influenza Vaccine (FLU [...] D LEVEL ONCE IN A LIFETIME-USE SMARTSET# [id number] Completed 05/04/2021, 09/01/2010 LUNG CANCER SCREENING - USE SMARTSET [id number] Completed 2023, 12/27/2022, 11/09/2022 GARDASIL-HPV IMMUNIZATION SERIES Aged Out No longer eligible based on patient's age to complete this topic Hepatitis B Aged Out No longer eligi ble based on patient's age to complete this topic MENINGOCOCCAL (MENACTRA/MENVEO) Aged Out No longer eligible based on patient's age to complete this topic documented as of this encounter Medical Devices Implanted Type Area Sleep Lab Technologist Device Identifier Shelf Expiration Date Model / Serial / Lot Power Port 8fr Sngl Lumen Plas - [id number] Implanted:Qty : 1 on 04/21/2023 by Artemio Bynum DO at OR [facility] Right: Chest CR BARD : PERIPHERAL VASCULAR 06/21/2024 [id number] / / [id number] Power Port 8fr Sngl Lumen Plas - [id number] Implanted:Qty : 1 on 04/21/2023 by Artemio Bynum DO at OR [facility] CR BARD : PERIPHERAL VASCULAR [id number] 06/21/2024 [id number] / / [id number] documented as of this encounter Visit Diagnoses Diagnosis Iron deficiency anemia due to chronic blood loss- Primary Iron deficiency anemia secondary to blood loss (chronic) Rectal cancer (HCC) Malignant neoplasm of rectum Iron deficiency anemia due to chronic blood loss Iron deficiency anemia secondary to blood loss (chronic) Rectal cancer (HCC) Malignant neoplasm of rectum documented in this encounter Advance Directives Healthcare Agents on File Name Relationship Healthcare Agent Relationshi p Communication Olivier Root Spouse Health Care Repr esentative (appointed verbally by patient or by statute hierarchy) Care Teams Factory Superintendent Relationship Specialty Start Date End Date Shelli Ritter MD [address] [place] [address] [place] [address] PCP - General Family Medicine 10/30/15 documented as of this encounter
--- OUTSIDE RECORDS SUMMARY | 2024-03-22 23:04 | External Medical Summary | Summary of Care ---
Author Name Unknown Organization [facility] Address [address] [facility] [address] Phone [phone] Care Team Providers Care Paid Search Specialist Name Role Phone Shelli Ritter MD Primary Care Provide r Reason for Referral * Ancillary Services (Within 3 days (urgent)) - Authorized Specialty Diagnoses / Procedures Referred By Contac t Referred To Contact Top Stop Attacher Diagnoses Iron deficiency anemia due to chronic blood loss Rectal cancer (HCC) Shelli Ritter MD [address] [place] [address] [place] [address] Referral ID Status Reason Start Date Expiration Date Visits Requested Visits Authorized [id number] Authorized Ancillary Services Required 10/31/2023 999 999 [...] on the next service day for the [facility] Home Phlebotomy does not service every geographical location on a daily basis. Contact [facility] Client Services at to find out service days for a specific location. Medical Laboratory [facility] Patient Name: Amanda Ferrell : 1965 Sex: female Address [address] [facility] [place] [address] Provider: None? Shelli Ritter MD? Diagnosis: D50.0 [...] (Late st Contact Info) Description 10/27/[address] [phone] Shelli Ritter MD [address] [place] [address] [place] [phone] Order Request; case management; Referral; ... Allergies [...] answer. Left message requesting a call back. [facility]. Home phlebotomy referral sent, along with lab [...] 10:20 AM EDT Laboratory Lab Mobile Phlebotomy [facility] [address] [place] [address] [facility] Mobile Home Draw [address] [place] [address] 11/15/2023 8:45 AM EDT Office Visit Hematology/Oncology [facility] [place] [address] [facility] [place] [phone] Cuate Bowman MD [address] [facility] [place] [address] 12/02/2023 10:40 AM EDT Office Visit [facility] Medicine [address] [phone] Shelli Ritter MD [address] [place] [address] [place] [address] 12/14/2023 10:15 AM EDT Office Visit General Surgery, [facility] [address] [place] [address] Monae Ruiz MD [address] [facility], [place] [id number] 04/16/2024 10:20 AM EDT Office Visit Rheumatology [address] [place] [phone] Live Spann MD [facility] [place] [address] Scheduled Orders Name Type Priority Associated Diagnoses [...] Depression Screening 04/22/2021 04/22/2020 COVID-19 Vaccine ( - 2022- season) 2023 10/24/2020, 09/29/2020 Influenza [...] D LEVEL ONCE IN A LIFETIME-USE SMARTSET# [id number] Completed 05/04/2021, 09/01/2010 LUNG CANCER SCREENING - USE SMARTSET 34291 Completed 2023, 12/27/2022, 11/09/2022 GARDASIL-HPV IMMUNIZATION SERIES Aged Out No longer eligible based on patient's age to complete this topic Hepatitis B Aged Out No longer eligi ble based on patient's age to complete this topic MENINGOCOCCAL (MENACTRA/MENVEO) Aged Out No longer eligible based on patient's age to complete this topic documented as of this encounter Medical Devices Implanted Type Area Director Occupational Device Identifier Shelf Expiration Date Model / Serial / Lot Power Port 8fr Sngl Lumen Plas - [id number] Implanted:Qty : 1 on 04/21/2023 by Artemio Bynum DO at OR [facility] Right: Chest CR BARD : PERIPHERAL VASCULAR 06/21/2024 [id number] / / [id number] Power Port 8fr Sngl Lumen Plas - [id number] Implanted:Qty : 1 on 04/21/2023 by Artemio Bynum DO at OR [facility] CR BARD : PERIPHERAL VASCULAR [id number] 06/21/2024 [id number] / / [id number] documented as of this encounter Visit Diagnoses [...] patient or by statute hierarchy) Care Teams Paid Search Specialist Relationship Specialty Start Date End Date Shelli Ritter MD [address] [place] [address] [place] [address] PCP - General Family Medicine 10/30/15 documented as of this encounter
--- OUTSIDE RECORDS SUMMARY | 2024-03-22 23:04 | External Medical Summary | Summary of Care ---
Author Name Unknown Organization [facility] Address [address] [facility] [address] Phone [phone] Care Team Providers Care Motor Vehicle Operator Road Supervisor Name Role Phone Shelli Ritter MD Primary Care Provide r Reason for Referral * Ancillary Services (Within 3 days (urgent)) - Authorized Specialty Diagnoses / Procedures Referred By Contac t Referred To Contact Salesperson Fashion Accessories Diagnoses Iron deficiency anemia due to chronic blood loss Rectal cancer (HCC) Shelli Ritter MD [address] [place] [address] [place] [id number] Referral ID Status Reason Start Date Expiration Date Visits Requested Visits Authorized [id number] Authorized Ancillary Services Required 10/31/[phone] [...] on the next service day for the [facility] Home Phlebotomy does not service every geographical location on a daily basis. Contact [facility] Client Services at to find out service days for a specific location. Medical Laboratory [facility] Patient Name: Amanda Ferrell : 1965 Sex: female Address [address] [facility] [place] [address] Provider: None? Shelli Ritter MD? Diagnosis: D50.0 [...] (Late st Contact Info) Description 10/27/[address] [phone] Shelli Ritter MD [address] [place] [address] [place] [phone] Order Request; case management; Referral; ... Allergies [...] Miscellaneous Notes * Telephone Encounter - Kevin tSyles OSA - 11/01/2023 2:43 PM EDT Patient [...] answer. Left message requesting a call back. [facility]. Home phlebotomy referral sent, along [...] [facility] [address] [place] [address] [facility] [facility] Mobile Home Draw [address] [place] [address] Iron deficiency anemia due to chronic blood loss; Rectal cancer (HCC) 11/15/2023 8:45 AM EDT Office Visit Hematology/Oncology [facility] [address] [place] [address] Cuate Bowman MD [address] [place] [address] 12/02/2023 10:40 AM EDT Office Visit [address] [phone] Shelli Ritter MD [address] [place] [address] [place] [address] 12/14/2023 10:15 AM EDT Office Visit General Surgery, [facility] [address] [place] [address] Monae Ruiz MD [address] [place] [address] 04/16/2024 10:20 AM EDT Office Visit Rheumatology [address] [place] [address] Live Spann MD [address] [place] [address] [place] [address] Scheduled Orders Name Type Priority Associated Diagnoses [...] D LEVEL ONCE IN A LIFETIME-USE SMARTSET# [id number] Completed 05/04/2021, 09/01/2010 LUNG CANCER SCREENING - USE SMARTSET [id number] Completed 2023, 12/27/2022, 11/09/2022 GARDASIL-HPV IMMUNIZATION SERIES Aged Out No longer eligible based on patient's age to complete this topic Hepatitis B Aged Out No longer eligi ble based on patient's age to complete this topic MENINGOCOCCAL (MENACTRA/MENVEO) Aged Out No longer eligible based on patient's age to complete this topic documented as of this encounter Medical Devices Implanted Type Area Varsity Baseball Coach Device Identifier Shelf Expiration Date Model / Serial / Lot Power Port 8fr Sngl Lumen Plas - [id number] Implanted:Qty : 1 on 04/21/2023 by Artemio Bynum DO at OR [facility] Right: Chest CR BARD : PERIPHERAL VASCULAR 06/21/2024 [id number] / / [id number] Power Port 8fr Sngl Lumen Plas - [id number] Implanted:Qty : 1 on 04/21/2023 by Artemio Bynum DO at OR [facility] CR BARD : PERIPHERAL VASCULAR [id number] 06/21/2024 [id number] / / [id number] documented as of this encounter Visit Diagnoses [...] patient or by statute hierarchy) Care Teams Motor Vehicle Operator Road Supervisor Relationship Specialty Start Date End Date Shelli Ritter MD [address] [place] [address] [place] [address] PCP - General Family Medicine 10/30/15 documented as of this encounter
--- OUTSIDE RECORDS SUMMARY | 2024-03-22 23:04 | External Medical Summary | Summary of Care ---
Author Name Unknown Organization [facility] Address [address] [facility] [place] [address] Phone [phone] Care Team Providers Care Pallet Sorter Name Role Phone Shelli Ritter MD Primary Care Provide r Reason for Visit * Reason Onset Date Comments No Show 02/16/2024 Encounter Details Date Type Department Care Team (Late st Contact Info) Description 02/16/2024 Telephone Hematology/Oncology [facility] [place] [address] [facility] [place] [address] Cuate Bowman MD [address] [facility] [address] No Show Allergies No known active allergiesdocumented as of this encounter (statuses as of 02/16/2024) Medications Medication Sig Dispensed Refills Start Date [...] as of this encounter (statuses as of 02/16/2024) Active Problems Problem Noted Date Diagnosed Date [...] as of this encounter (statuses as of 02/16/2024) Resolved Problems Problem Noted Date Diagnosed Date Resolved Date Alcohol withdrawal 06/29/2017 0 Bipolar disorder 11/26/2013 10/28/2020 Alcohol related seizure 11/26/201302/2020 HTN, goal below 140/90 04/05/200806/27 Overview: Modified per HTN Taxonomy. Peptic ulcer 04/05/2008 08/28/2019 documented as of this encounter (statuses as of 02/16/2024) Immunizations Name Administration Dates Next Due COVID-19 [...] encounter Miscellaneous Notes * Telephone Encounter - Phyllis Sweet, MED ASSIST - 02/16/2024 9:57 AM EDT Please contact patient to reschedule NO Show appt today scheduled with . thank you. documented in this encounter Plan of Treatment Upcoming Encounters Date Type Department Care Team (Late st Contact Info) Description 04/09/2024 1:00 PM EDT Office Visit Family Medicine [address] [place] [phone] Shelli Ritter MD [address] [place] [address] [place] [address] 04/16/2024 10:20 AM EDT Office Visit Rheumatology [address] [place] [phone] Live Spann MD [address] [place] [address] Health Maintenance Due Date Last Done Comments HPV/Co-Test 1993 Cologuard 01/27/2008 Fecal Occult Blood Test 01/27/2008 Sigmoidoscopy 01/27/2008 Zoster Vaccines (1 of 2) 2013 Cervical Cancer Screening 10/20/2013 Pap Smear 10/20/2013 10/20/2010 Pneumococcal Vaccine: Pediatrics (0 to 5 Years) and At-Risk Patients (6 to 64 Years) (2 of 2 - PCV) 03/17/2019 03/17/2018 Depression Screening 04/22/2021 04/22/2020 COVID-19 Vaccine ( - season) 2023 10/24/2020, 09/29/2020 Mammogram 12/14/2023 [...] D LEVEL ONCE IN A LIFETIME-USE SMARTSET# [id number] Completed 05/04/2021, 09/01/2010 Lung Cancer Screening Completed [...] this encounter Medical Devices Implanted Type Area Gold Leaf Layer Device Identifier Shelf Expiration Date Model / Serial / Lot Power Port 8fr Sngl Lumen Plas - [id number] Implanted:Qty : 1 on 04/21/2023 by Artemio Bynum DO at OR [facility] Right: Chest CR BARD : PERIPHERAL VASCULAR 06/21/2024 [id number] / / [id number] Power Port 8fr Sngl Lumen Plas - [id number] Implanted:Qty : 1 on 04/21/2023 by Artemio Bynum DO at OR [facility] CR BARD : PERIPHERAL VASCULAR [id number] 06/21/2024 [id number] / / [id number] documented as of this encounter Advance Directives Healthcare Agents on File Name Relationship Healthcare Agent Relationshi p Communication Olivier Root Spouse Health Care Repr esentative (appointed verbally by patient or by statute hierarchy) Care Teams Pallet Sorter Relationship Specialty Start Date End Date Shelli Ritter MD [address] [place] [address] [place] [phone] PCP - General Family Medicine 10/30/15 documented as of this encounter
--- OUTSIDE RECORDS SUMMARY | 2024-03-22 23:05 | External Medical Summary | Summary of Care ---
Author Name Unknown Organization [facility] Address [address] [facility] [place] [address] Phone [phone] Care Team Providers Care Heat Treat Operator Name Role Phone Shelli Ritter MD Primary Care Provide r Reason for Visit * Reason Onset Date Comments Advice 09/26/2023 Patient Contact Encounter Details Date Type Department Care Team (Late st Contact Info) Description 09/26/2023 [address]phone [address] [place] [phone] Tiara Roca, RT (R) Advice (Patient Contact) Allergies No known active allergiesdocumented as of this encounter (statuses as of 09/26/2023) Medications Medication Sig Dispensed Refills Start Date [...] as of this encounter (statuses as of 09/26/2023) Active Problems Problem Noted Date Diagnosed Date [...] as of this encounter (statuses as of 09/26/2023) Resolved Problems Problem Noted Date Diagnosed Date Resolved Date Alcohol withdrawal 06/29/2017 0 Bipolar disorder 11/26/2013 10/28/2020 Alcohol related seizure 11/26/201302/2020 HTN, goal below 140/90 04/05/200806/27 Overview: Modified per HTN Taxonomy. Peptic ulcer 04/05/2008 08/28/2019 documented as of this encounter (statuses as of 09/26/2023) Immunizations Name Administration Dates Next Due COVID-19 mRNA, LNP-s, No Pre serve, 2-Dose Series (Moderna) 10/24/2020,09/29/2020 Pneumococcal Polysaccharide PPV23 (Pneumovax) TDAP (age 10 and older)(Boostrix) 08/28/2019 TDAP (age 11 and older)(Adacel) 04/05/2008 documented as of this encounter Social History Tobacco Use Types Packs/Day Years Used Date Smoking Tobacco: Former Cigarettes 1 25 Q uit: 08/22/2009 Smokeless Tobacco: Never Alcohol Use Standard [...] encounter Miscellaneous Notes * Telephone Encounter - Samantha Stephenson LPN - 09/26/2023 3:59 PM EST Returned call to patient and made her aware that I'll be talking to Dr. Ruiz tomorrow morning andwill get back to her. LMOM. documented in this encounter Plan of Treatment Upcoming Encounters Date Type Department Care Team (Late st Contact Info) Description 12/02/2023 10:40 AM EDT Office Visit Family Medicine [address] [place] [phone] Shelli Ritter MD [address] [place] [address] [place] [address] 12/14/2023 10:15 AM EDT Office Visit General Surgery, [facility] [address] [facility] [place] [address] Monae Ruiz MD [address] [facility] [id number] 04/16/2024 10:20 AM EDT Office Visit Rheumatology [address] [place] [phone] Live Spann MD [facility] [address] Health Maintenance Due Date Last Done Comments HPV/Co-Test 1993 Cologuard 01/27/2008 Fecal Occult Blood Test 01/27/2008 Sigmoidoscopy 01/27/2008 Zoster Vaccines (1 of 2) 2013 Cervical Cancer Screening 10/20/2013 Pap Smear 10/20/2013 10/20/2010 Pneumococcal Vaccine: Pediatrics (0 to 5 Years) and At-Risk Patients (6 to 64 Years) (2 - PCV) 03/17/2019 03/17/2018 Depression Screening 04/22/2021 [...] D LEVEL ONCE IN A LIFETIME-USE SMARTSET# [id number] Completed 05/04/2021, 09/01/2010 LUNG CANCER SCREENING - USE SMARTSET 35096 Completed 2023, 12/27/2022, 11/09/2022 GARDASIL-HPV IMMUNIZATION SERIES Aged Out No longer eligible based on patient's age to complete this topic Hepatitis B Aged Out No longer eligi ble based on patient's age to complete this topic MENINGOCOCCAL (MENACTRA/MENVEO) Aged Out No longer eligible based on patient's age to complete this topic documented as of this encounter Medical Devices Implanted Type Area Fbi Field Agent Device Identifier Shelf Expiration Date Model / Serial / Lot Power Port 8fr Sngl Lumen Plas - [id number] Implanted:Qty: 1 on 04/21/2023 by Artemio Bynum, DO at OR [facility] BARD : PERIPHERAL VASCULAR [id number] 06/21/2024 [id number] / / [id number] documented as of this encounter Advance Directives Healthcare Agents on File Name Relationship Healthcare Agent Relationshi p Communication Olivier Root Spouse Health Care Repr esentative (appointed verbally by patient or by statute hierarchy) Care Teams Heat Treat Operator Relationship Specialty Start Date End Date Shelli Ritter MD [address] [place] [address] [place] [address] PCP - General Family Medicine 10/30/15 documented as of this encounter
--- OUTSIDE RECORDS SUMMARY | 2024-03-22 23:05 | External Medical Summary | Summary of Care ---
Author Name Unknown Organization [facility] Address [address] [facility] [place] [address] Phone [phone] Care Team Providers Care Carpet Finishing Supervisor Name Role Phone Shelli Ritter MD Primary Care Provide r Reason for Visit * Reason Onset Date Comments Advice 09/26/2023 Patient Contact Encounter Details Date Type Department Care Team (Late st Contact Info) Description 09/26/2023 Telephone Radiology [address] [place] [phone] Tiara Roca, RT (R) Advice (Patient Contact) Allergies No known active allergiesdocumented as of this encounter (statuses as of 09/27/2023) Medications Medication Sig Dispensed Refills Start Date [...] as of this encounter (statuses as of 09/27/2023) Active Problems Problem Noted Date Diagnosed Date [...] as of this encounter (statuses as of 09/27/2023) Resolved Problems Problem Noted Date Diagnosed Date Resolved Date Alcohol withdrawal 06/29/2017 0 Bipolar disorder 11/26/2013 10/28/2020 Alcohol related seizure 11/26/201302/2020 HTN, goal below 140/90 04/05/200806/27 Overview: Modified per HTN Taxonomy. Peptic ulcer 04/05/2008 08/28/2019 documented as of this encounter (statuses as of 09/27/2023) Immunizations Name Administration Dates Next Due COVID-19 [...] Telephone Encounter - Samantha Stephenson LPN - 09/27/2023 9:19 AM EST Patient called to offer her an appointment with Dr. Ruiz on 10/10/23 to follow up after her MRI and to discuss the next step. Number given to return call. LMOM * Telephone Encounter - Smaantha Stephenson LPN - 09/26/2023 3:59 PM EST Returned call to patient and made her aware that I'll be talking to Dr. Ruiz tomorrow morning andwill get back to her. LMOM. documented in this encounter Plan of Treatment Upcoming Encounters Date Type Department Care Team (Late st Contact Info) Description 12/02/2023 10:40 AM EDT Office Visit Family Medicine [address] [place] [phone] Shelli Ritter MD [address] [place] [address] [place] [id number] 12/14/2023 10:15 AM EDT Office Visit General Surgery, [facility] [address] [place] [address] Monae Ruiz MD [address] [place] [address] 04/16/2024 10:20 AM EDT Office Visit Rheumatology [address] [place] [phone] Live Spann MD [address] [place] [address] [place] [address] Health Maintenance Due Date Last Done Comments [...] D LEVEL ONCE IN A LIFETIME-USE SMARTSET# [id number] Completed 05/04/2021, 09/01/2010 LUNG CANCER SCREENING - USE SMARTSET [id number] Completed 2023, 12/27/2022, 11/09/2022 GARDASIL-HPV IMMUNIZATION SERIES Aged Out No longer eligible based on patient's age to complete this topic Hepatitis B Aged Out No longer eligi ble based on patient's age to complete this topic MENINGOCOCCAL (MENACTRA/MENVEO) Aged Out No longer eligible based on patient's age to complete this topic documented as of this encounter Medical Devices Implanted Type Area Compliance Representative Device Identifier Shelf Expiration Date Model / Serial / Lot Power Port 8fr Sngl Lumen Plas - [id number] Implanted:Qty: 1 on 04/21/2023 by Artemio Bynum DO at OR [facility] OMAR BARD : PERIPHERAL VASCULAR [id number] 06/21/2024 [id number] / / [id number] documented as of this encounter Advance Directives Healthcare Agents on File Name Relationship Healthcare Agent Relationshi p Communication Olivier Root Spouse Health Care Repr esentative (appointed verbally by patient or by statute hierarchy) Care Teams Carpet Finishing Supervisor Relationship Specialty Start Date End Date Shelli Ritter MD [address] [place] [address] [place] [address] PCP - General Family Medicine 10/30/15 documented as of this encounter
--- OUTSIDE RECORDS SUMMARY | 2024-03-22 23:05 | External Medical Summary | Summary of Care ---
Author Name Unknown Organization [facility] Address [address] [facility] [address] Phone [phone] Care Team Providers Care Sewer Pipe Sorter Name Role Phone Shelli Ritter MD Primary Care Provide r Reason for Referral * Ancillary Services (Within 3 days (urgent)) - Authorized Specialty Diagnoses / Procedures Referred By Contjeannie t Referred To Contact Sterile Instrument Technician Diagnoses Iron deficiency anemia due to chronic blood loss Rectal cancer (HCC) Shelli Ritter MD [address] [place] [address] [place] [id number] Referral ID Status Reason Start Date Expiration Date Visits Requested Visits Authorized [id number] Authorized Ancillary Services Required 10/31/2023 999 999 [...] on the next service day for the [facility] Home Phlebotomy does not service every geographical location on a daily basis. Contact [facility] Client Services at to find out service days for a specific location. Medical Laboratory [facility] Patient Name: Amanda Ferrell : 1965 Sex: female Address [address] [facility] Willian Fink [place] [address] Provider: None? Shelli [...] Contact Info) Description 10/27/2023 Telephone Family Medicine [address] [place] [phone] Shelli Ritter MD [address] [place] [address] [place] [address] Order Request; case management; [...] encounter Miscellaneous Notes * Telephone Encounter - Christie Bradley RN - 10/31/2023 1:53 PM EDT please call pt to re-sched oncology appt * Telephone Encounter - Yanci Ledezma RN - 10/31/2023 12:03 PM EDT Attempted to contact patient to see if she needed assist with scheduling an oncology appointment. No answer. Left message requesting a call back. [facility]. Home phlebotomy referral sent, along with lab [...] AM EDT Laboratory Lab Mobile Phlebotomy [facility] [address] [place] [address] [facility] [place] [facility] Mobile Home Draw [address] [place], [place] [id number] 12/02/2023 10:40 AM EDT Office Visit Family Medicine [address] [place] [phone] Shelli Ritter MD [address] [place] [address] [place] [id number] 12/14/2023 10:15 AM EDT Office Visit General Surgery, [facility] [address] [place] [address] Monae Ruiz MD [address] [place] [address] 04/16/2024 10:20 AM EDT Office Visit Rheumatology [address] [place] [phone] Live Spann MD [address] [place] [address], [place] [address] Scheduled Orders Name Type Priority Associated Diagnoses [...] D LEVEL ONCE IN A LIFETIME-USE SMARTSET# [id number] Completed 05/04/2021, 09/01/2010 LUNG CANCER SCREENING - USE SMARTSET [id number] Completed 2023, 12/27/2022, 11/09/2022 GARDASIL-HPV IMMUNIZATION SERIES Aged Out No longer eligible based on patient's age to complete this topic Hepatitis B Aged Out No longer eligi ble based on patient's age to complete this topic MENINGOCOCCAL (MENACTRA/MENVEO) Aged Out No longer eligible based on patient's age to complete this topic documented as of this encounter Medical Devices Implanted Type Area Director Of Retail Merchandising Device Identifier Shelf Expiration Date Model / Serial / Lot Power Port 8fr Sngl Lumen Plas - [id number] Implanted:Qty : 1 on 04/21/2023 by Artemio Bynum DO at OR [facility] Right: Chest CR BARD : PERIPHERAL VASCULAR 06/21/2024 [id number] / / [id number] Power Port 8fr Sngl Lumen Plas - [id number] Implanted:Qty : 1 on 04/21/2023 by Artemio Bynum DO at OR [facility] CR BARD : PERIPHERAL VASCULAR [id number] 06/21/2024 [id number] / / [id number] documented as of this encounter Visit Diagnoses [...] patient or by statute hierarchy) Care Teams Sewer Pipe Sorter Relationship Specialty Start Date End Date Shelli Ritter MD [address] [place] [address] [place] [address] PCP - General Family Medicine 10/30/15 documented as of this encounter
--- OUTSIDE RECORDS SUMMARY | 2024-03-22 23:05 | External Medical Summary | Summary of Care ---
Author Name Unknown Organization [facility] [address] [facility] [address] Phone [phone] Care Team Providers Care Glass Curvature Gauger Name Role Phone Shelli Ritter MD Primary Care Provide r Reason for Referral * Ancillary Services (Within 3 days (urgent)) - Authorized Specialty Diagnoses / Procedures Referred By Contjeannie t Referred To Contact Brim Ironer Hand Diagnoses Iron deficiency anemia due to chronic blood loss Rectal cancer (HCC) Shelli Ritter MD [address] [place] [address] [place] [phone] Referral ID Status Reason Start Date Expiration Date Visits Requested Visits Authorized [id number] Authorized Ancillary Services Required 10/31/2023 999 999 [...] on the next service day for the [facility] Home Phlebotomy does not service every geographical location on a daily basis. Contact [facility] Client Services at to find out service days for a specific location. Medical Laboratory [facility] Patient Name: Amanda Ferrell : 1965 Sex: female Address [address] [facility] [address] [place] [address] Provider: None? Shelli Ritter MD? [...] Contact Info) Description 10/27/2023 Telephone Family Medicine [address] [place] [phone] Shelli Ritter MD [address] [place] [address] [place] [address] Order Request; case management; Referral Allergies No known active allergiesdocumented as of this encounter (statuses as of 10/31/2023) Medications Medication Sig Dispensed Refills Start Date [...] as of this encounter (statuses as of 10/31/2023) Active Problems Problem Noted Date Diagnosed Date [...] as of this encounter (statuses as of 10/31/2023) Resolved Problems Problem Noted Date Diagnosed Date Resolved Date Alcohol withdrawal 06/29/2017 0 Bipolar disorder 11/26/2013 10/28/2020 Alcohol related seizure 11/26/201302/2020 HTN, goal below 140/90 04/05/200806/27 Overview: Modified per HTN Taxonomy. Peptic ulcer 04/05/2008 08/28/2019 documented as of this encounter (statuses as of 10/31/2023) Immunizations Name Administration Dates Next Due COVID-19 [...] answer. Left message requesting a call back. [facility]. * Telephone Encounter - Shelli Ritter MD [...] 10:20 AM EDT Laboratory Lab Mobile Phlebotomy [facility] [place] [address] [place] [address] [facility] Mobile Home Draw [address] [place] [address] 12/02/2023 10:40 AM EDT Office Visit Family Medicine [address] [place] [phone] Shelli Ritter MD [address] [place] [address] [place] [address] 12/14/2023 10:15 AM EDT Office Visit General Surgery, [facility] 132 [facility] [place] [address] Monae Ruiz MD [address] [place] [address] 04/16/2024 10:20 AM EDT Office Visit Rheumatology [address] [place] [phone] Live Spann MD [address] [place] [address] Scheduled Orders Name Type Priority Associated Diagnoses [...] D LEVEL ONCE IN A LIFETIME-USE SMARTSET# [id number] Completed 05/04/2021, 09/01/2010 LUNG CANCER SCREENING - USE SMARTSET [id number] Completed 2023, 12/27/2022, 11/09/2022 GARDASIL-HPV IMMUNIZATION SERIES Aged Out No longer eligible based on patient's age to complete this topic Hepatitis B Aged Out No longer eligi ble based on patient's age to complete this topic MENINGOCOCCAL (MENACTRA/MENVEO) Aged Out No longer eligible based on patient's age to complete this topic documented as of this encounter Medical Devices Implanted Type Area Lumber Kiln Operator Device Identifier Shelf Expiration Date Model / Serial / Lot Power Port 8fr Sngl Lumen Plas - [id number] Implanted:Qty : 1 on 04/21/2023 by Artemio Bynum DO at OR [facility] Right: Chest CR BARD : PERIPHERAL VASCULAR 06/21/2024 [id number] / / [id number] Power Port 8fr Sngl Lumen Plas - [id number] Implanted:Qty : 1 on 04/21/2023 by Artemio Bynum DO at OR [facility] CR BARD : PERIPHERAL VASCULAR [id number] 06/21/2024 [id number] / / [id number] documented as of this encounter Visit Diagnoses [...] patient or by statute hierarchy) Care Teams Glass Curvature Gauger Relationship Specialty Start Date End Date Shelli Ritter MD [address] [place] [address] [place] [address] PCP - General Family Medicine 10/30/15 documented as of this encounter
--- OUTSIDE RECORDS SUMMARY | 2024-03-22 23:05 | External Medical Summary | Summary of Care ---
Author Name Unknown Organization [facility] Address [address] [facility] [address] Phone [phone] Care Team Providers Care Channel Executive Name Role Phone Shelli Ritter MD Primary Care Provide r Reason for Referral * Ancillary Services (Within 3 days (urgent)) - Authorized Specialty Diagnoses / Procedures Referred By Contjeannie t Referred To Contact Nodulizer Diagnoses Iron deficiency anemia due to chronic blood loss Rectal cancer (HCC) Shelli Ritter MD [address] [place] [address] [place] [address] Referral ID Status Reason Start Date Expiration Date Visits Requested Visits Authorized [id number] Authorized Ancillary Services Required 10/31/2023 999 999 [...] geographical location on a daily basis. Contact [facility] Client Services at to find out service days for a specific location. Medical Laboratory [facility] Patient Name: Amanda Ferrell : 1965 Sex: female Address [address] [facility] [place] Silva [place] [address] Provider: None? Shelli Ritter [...] Contact Info) Description 10/27/2023 Telephone Family Medicine [address] [place] [phone] Shelli Ritter MD [address] [place] [address] [place] [address] Order Request; case management; [...] answer. Left message requesting a call back. [facility]. Home phlebotomy referral sent, along with lab [...] 10:20 AM EDT Laboratory Lab [place] [facility] [place] [address] [place] [address] [facility] Mobile Home Draw [address] [place], [place] [address] 12/02/2023 10:40 AM EDT Office Visit Family Medicine [address] [place] [phone] Shelli Ritter MD [address] [place] [address] [place] [id number] 12/14/2023 10:15 AM EDT Office Visit General Surgery, [facility] [address] [place] [address] Monae Ruiz MD [address] [place] [address] 04/16/2024 10:20 AM EDT Office Visit Rheumatology [address] [place] [phone] Live Spann MD [address] [place] [address], [place] [address] Scheduled Orders Name Type Priority Associated Diagnoses [...] D LEVEL ONCE IN A LIFETIME-USE SMARTSET# [id number] Completed 05/04/2021, 09/01/2010 LUNG CANCER SCREENING - USE SMARTSET [id number] Completed 2023, 12/27/2022, 11/09/2022 GARDASIL-HPV IMMUNIZATION SERIES Aged Out No longer eligible based on patient's age to complete this topic Hepatitis B Aged Out No longer eligi ble based on patient's age to complete this topic MENINGOCOCCAL (MENACTRA/MENVEO) Aged Out No longer eligible based on patient's age to complete this topic documented as of this encounter Medical Devices Implanted Type Area Oil Heat Technician Device Identifier Shelf Expiration Date Model / Serial / Lot Power Port 8fr Sngl Lumen Plas - [id number] Implanted:Qty : 1 on 04/21/2023 by Artemio Byunm DO at OR [facility] Right: Chest CR BARD : PERIPHERAL VASCULAR 06/21/2024 [id number] / / [id number] Power Port 8fr Sngl Lumen Plas - [id number] Implanted:Qty : 1 on 04/21/2023 by Artemio Bynum DO at OR [facility] CR BARD : PERIPHERAL VASCULAR [id number] 06/21/2024 [id number] / / [id number] documented as of this encounter Visit Diagnoses [...] patient or by statute hierarchy) Care Teams Channel Executive Relationship Specialty Start Date End Date Shelli Ritter MD [address] [place] [address] [place] [address] PCP - General Family Medicine 10/30/15 documented as of this encounter
--- OUTSIDE RECORDS SUMMARY | 2024-03-22 23:05 | External Medical Summary | Summary of Care ---
Author Name Unknown Organization [facility] Address [address] [facility] [place] [address] Phone [phone] Care Team Providers Care Senior Consumer Insights Consultant Name Role Phone Shelli Ritter MD Primary Care Provide r Reason for Visit * Reason Onset Date Comments Advice 09/26/2023 Patient Contact Encounter Details Date Type Department Care Team (Late st Contact Info) Description 09/26/2023 Telephone Radiology [address] [place] [phone] Tiara Roca, RT (R) Advice (Patient Contact) Allergies No known active allergiesdocumented as of this encounter (statuses as of 10/04/2023) Medications Medication Sig Dispensed Refills Start Date [...] as of this encounter (statuses as of 10/04/2023) Active Problems Problem Noted Date Diagnosed Date [...] as of this encounter (statuses as of 10/04/2023) Resolved Problems Problem Noted Date Diagnosed Date Resolved Date Alcohol withdrawal 06/29/2017 0 Bipolar disorder 11/26/2013 10/28/2020 Alcohol related seizure 11/26/201302/2020 HTN, goal below 140/90 04/05/200806/27 Overview: Modified per HTN Taxonomy. Peptic ulcer 04/05/2008 08/28/2019 documented as of this encounter (statuses as of 10/04/2023) Immunizations Name Administration Dates Next Due COVID-19 [...] Telephone Encounter - Samantha Stephenson LPN - 10/04/2023 11:19 AM EST Patient called and LMOM that we're trying to get a hold of her to schedule a sooner appointment with Dr. Ruiz. * Telephone Encounter - Samantha Stephenson LPN - 09/27/2023 9:19 AM EST Patient called to offer her an appointment with Dr. Ruiz on 10/10/23 to follow up after her MRI and to discuss the next step. Number given to return call. LMOM * Telephone Encounter - Samantha Stephenson LPN - 09/26/2023 3:59 PM EST Returned call to patient and made her aware that I'll be talking to Dr. Ruiz tomorrow morning andwill get back to her. LMOM. documented in this encounter Plan of Treatment Upcoming Encounters Date Type Department Care Team (Late st Contact Info) Description 12/02/2023 10:40 AM EDT Office Visit Family Medicine [address] [place] [phone] Shelli Ritter MD [address] [place] [address] [place] [address] 12/14/2023 10:15 AM EDT Office Visit General Surgery, [facility] [address] [facility] [place] [address] Monae Ruiz MD [address] [facility] [id number] 04/16/2024 10:20 AM EDT Office Visit Rheumatology [address] [place] [phone] Live Spann MD [facility] [address] Health Maintenance Due Date Last Done Comments [...] D LEVEL ONCE IN A LIFETIME-USE SMARTSET# [id number] Completed 05/04/2021, 09/01/2010 LUNG CANCER SCREENING - USE SMARTSET [id number] Completed 2023, 12/27/2022, 11/09/2022 GARDASIL-HPV IMMUNIZATION SERIES Aged Out No longer eligible based on patient's age to complete this topic Hepatitis B Aged Out No longer eligi ble based on patient's age to complete this topic MENINGOCOCCAL (MENACTRA/MENVEO) Aged Out No longer eligible based on patient's age to complete this topic documented as of this encounter Medical Devices Implanted Type Area Weigher And Mixer Device Identifier Shelf Expiration Date Model / Serial / Lot Power Port 8fr Sngl Lumen Plas - [id number] Implanted:Qty: 1 on 04/21/2023 by Artemio Bynum DO at OR [facility] BARD : PERIPHERAL VASCULAR [id number] 06/21/2024 [id number] / / [id number] documented as of this encounter Advance Directives Healthcare Agents on File Name Relationship Healthcare Agent Relationshi p Communication Olivier Root Spouse Health Care Repr esentative (appointed verbally by patient or by statute hierarchy) Care Teams Senior Consumer Insights Consultant Relationship Specialty Start Date End Date Shelli Ritter MD [address] [place] [address] [place] [address] PCP - General Family Medicine 10/30/15 documented as of this encounter
--- OUTSIDE RECORDS SUMMARY | 2024-03-22 23:05 | External Medical Summary | Summary of Care ---
Author Name Unknown Organization [facility] Address [address] [facility] [place] [address] Phone [phone] Care Team Providers Care Physical Therapy Professor Name Role Phone Shelli Ritter MD Primary Care Provide r Encounter Details Date Type Department Care Team (Late st Contact Info) Description 07/18/[address] [place] [address] Shelli Ritter MD [address] [place] [address] [place] [address] Allergies No known active allergiesdocumented as of this encounter (statuses as of 10/17/2023) Medications Medication Sig Dispensed Refills Start Date End Date Status Sertraline HCl 100 MG Oral Tablet (Zoloft)Indicati ons:Generalized anxiety disorder TAKE 1 TABLET BY MOUTH DAILY FOR ANXIETY/DEPRESS ION 90 Tablet 3 12/31/2022 Active Lisinopril 40 MG Oral TabletIndication s:HTN, [...] 40 MG Oral Tablet Delayed Release (Protonix) Take 1 Tablet by mouth in the morning. 90 Tablet 1 01/27/2023 3 Discontinued Folic Acid 1 MG Oral Tablet TAKE 1 TABLET BY MOUTH EVERY DAY IN THE MORNING 90 Tablet 1 01/27/2023 3 Discontinued Metoprolol Tartrate 50 MG Oral Tablet (Lopressor)Indic ations:HTN, goal below 140/90 Take 1 Tablet by mouth in the morning and 1 Tablet before bedtime. 180 Tablet 1 03/04/2023 4 Discontinued documented as of this encounter (statuses as of 10/17/2023) Active Problems Problem Noted Date Diagnosed Date [...] as of this encounter (statuses as of 10/17/2023) Resolved Problems Problem Noted Date Diagnosed Date Resolved Date Alcohol withdrawal 06/29/2017 0 Bipolar disorder 11/26/2013 10/28/2020 Alcohol related seizure 11/26/201302/2020 HTN, goal below 140/90 04/05/200806/27 Overview: Modified per HTN Taxonomy. Peptic ulcer 04/05/2008 08/28/2019 documented as of this encounter (statuses as of 10/17/2023) Immunizations Name Administration Dates Next Due COVID-19 [...] encounter Miscellaneous Notes * Telephone Encounter - Kiana Elizabeth LPN - 07/20/2023 8:45 AM EST Called pt. No answer. Left message for pt to return call. * Telephone Encounter - Shelli Ritter MD - 07/18/2023 3:28 PM EST I gave her pain medication short term for compression fracture. She should not keep taking narcotics this long. Can see if orthopedics feels they are appropriate or can refer to pain management but would recommend she take Tylenol instead. * Telephone Encounter - Shelli Ritter MD - 07/18/2023 3:28 PM EST ----- Message from Jelly Forman [facility] Health Excellence Consultant sent at 07/18/2023 3:07 PM EST ----- Patient asking for refill of codeine. documented in this encounter Plan of Treatment Upcoming Encounters Date Type Department Care Team (Late st Contact Info) Description 12/02/2023 10:40 AM EDT Office Visit Family Medicine [address] [place] [phone] Shelli Ritter MD [address] [place] [address] [place] [address] 12/14/2023 10:15 AM EDT Office Visit [facility] [address] Monae Ruiz MD [address] [place] [address] 04/16/2024 10:20 AM EDT Office Visit Rheumatology [address] [place] [phone] Live Spann MD [facility] [place] [address] Health Maintenance Due Date Last Done Comments [...] D LEVEL ONCE IN A LIFETIME-USE SMARTSET# [id number] Completed 05/04/2021, 09/01/2010 LUNG CANCER SCREENING - USE SMARTSET [id number] Completed 2023, 12/27/2022, 11/09/2022 GARDASIL-HPV IMMUNIZATION SERIES Aged Out No longer eligible based on patient's age to complete this topic Hepatitis B Aged Out No longer eligi ble based on patient's age to complete this topic MENINGOCOCCAL (MENACTRA/MENVEO) Aged Out No longer eligible based on patient's age to complete this topic documented as of this encounter Medical Devices Implanted Type Area Locum Tenens Psychiatrist Device Identifier Shelf Expiration Date Model / Serial / Lot Power Port 8fr Sngl Lumen Plas - [id number] Implanted:Qty : 1 on 04/21/2023 by Artemio Bynum DO at OR [facility] Right: Chest CR BARD : PERIPHERAL VASCULAR 06/21/2024 [id number] / / [id number] Power Port 8fr Sngl Lumen Plas - [id number] Implanted:Qty : 1 on 04/21/2023 by Artemio Bynum DO at OR [facility] CR BARD : PERIPHERAL VASCULAR [id number] 06/21/2024 [id number] / / [id number] documented as of this encounter Advance Directives Healthcare Agents on File Name Relationship Healthcare Agent Relationshi p Communication Oilvier Root Spouse Health Care Repr esentative (appointed verbally by patient or by statute hierarchy) Care Teams Physical Therapy Professor Relationship Specialty Start Date End Date Shelli Ritter MD [address] [place] [address] [place] [address] PCP - General Family Medicine 10/30/15 documented as of this encounter
--- OUTSIDE RECORDS SUMMARY | 2024-03-22 23:05 | External Medical Summary | Summary of Care ---
Author Name Unknown Organization [facility] Address [address] [facility] [address] Phone [phone] Care Team Providers Care Gis Technician Name Role Phone Shelli Ritter MD Primary Care Provide r Reason for Referral * Ancillary Services (Within 3 days (urgent)) - Authorized Specialty Diagnoses / Procedures Referred By Contjeannie t Referred To Contact Handle Bar Assembler Diagnoses Iron deficiency anemia due to chronic blood loss Rectal cancer (HCC) Shelli Ritter MD [address] [place] [address] [place] [address] Referral ID Status Reason Start Date Expiration Date Visits Requested Visits Authorized [id number] Authorized Ancillary Services Required 10/31/2023 999 999 [...] for the [facility] Home Phlebotomy does not service every geographical location on a daily basis. Contact [facility] Client Services at to find out service days for a specific location. Medical Laboratory [facility] Patient Name: Amanda Ferrell : 1965 Sex: female Address [address] [facility] [place] [address] Provider: None? Shelli [...] Contact Info) Description 10/27/2023 Telephone Family Medicine [address] [place] [phone] Shelli Ritter MD [address] [place] [address] [place] [address] Order Request; case management; [...] answer. Left message requesting a call back. [facility]. * Telephone Encounter - Shelli Ritter [...] 10:20 AM EDT Laboratory Lab Mobile Ph[facility]botomy [facility] [address] [place] [address] [facility], [facility] Mobile Home Draw [address] [place] [address] 12/02/2023 10:40 AM EDT Office Visit Family Medicine [address] [place] [phone] Shelli Ritter MD [address] [place] [address] [place] [address] 12/14/2023 10:15 AM EDT Office Visit General Surgery, [facility] [address] [place] [address] Monae Ruiz MD [address] [place] [address] 04/16/2024 10:20 AM EDT Office Visit Rheumatology [address] [place] [phone] Live Spann MD [address] [place] [address] Scheduled Orders Name Type Priority Associated Diagnoses [...] D LEVEL ONCE IN A LIFETIME-USE SMARTSET# [id number] Completed 05/04/2021, 09/01/2010 LUNG CANCER SCREENING - USE SMARTSET [id number] Completed 2023, 12/27/2022, 11/09/2022 GARDASIL-HPV IMMUNIZATION SERIES Aged Out No longer eligible based on patient's age to complete this topic Hepatitis B Aged Out No longer eligi ble based on patient's age to complete this topic MENINGOCOCCAL (MENACTRA/MENVEO) Aged Out No longer eligible based on patient's age to complete this topic documented as of this encounter Medical Devices Implanted Type Area Global Transportation Manager Device Identifier Shelf Expiration Date Model / Serial / Lot Power Port 8fr Sngl Lumen Plas - [id number] Implanted:Qty : 1 on 04/21/2023 by Artemio Bynum DO at OR [facility] Right: Chest CR BARD : PERIPHERAL VASCULAR 06/21/2024 [id number] / / [id number] Power Port 8fr Sngl Lumen Plas - [id number] Implanted:Qty : 1 on 04/21/2023 by Artemio Bynum DO at OR [facility] CR BARD : PERIPHERAL VASCULAR [id number] 06/21/2024 [id number] / / [id number] documented as of this encounter Visit Diagnoses [...] patient or by statute hierarchy) Care Teams Gis Technician Relationship Specialty Start Date End Date Shelli Ritter MD [address] [place] [address] [place] [address] PCP - General Family Medicine 10/30/15 documented as of this encounter
--- OUTSIDE RECORDS SUMMARY | 2024-03-22 23:05 | External Medical Summary | Summary of Care ---
Author Name Unknown Organization [facility] [address] [facility] [address] Phone [phone] Care Team Providers Care Supply Chain Specialist Name Role Phone Shelli Ritter MD Primary Care Provide r Reason for Referral * Ancillary Services (Within 3 days (urgent)) - Authorized Specialty Diagnoses / Procedures Referred By Contjeannie t Referred To Contact Aircraft Armorer Diagnoses Iron deficiency anemia due to chronic blood loss Rectal cancer (HCC) Shelli Ritter MD [address] [place] [address] [place] [address] Referral ID Status Reason Start Date Expiration Date Visits Requested Visits Authorized [id number] Authorized Ancillary Services Required 10/31/2023 999 999 [...] for the [facility] Home Phlebotomy does not service every geographical location on a daily basis. Contact [facility] Client Services at to find out service days for a specific location. Medical Laboratory [facility] Patient Name: Amanda Ferrell : 1965 Sex: female Address [address] [facility] [place] [address] Provider: [...] Contact Info) Description 10/27/2023 Telephone Family Medicine [address] [place] [phone] Shelli Ritter MD [address] [place] [address] [place] [address] Order Request; case management; [...] answer. Left message requesting a call back. [facility]. * Telephone Encounter - Shelli Ritter [...] 10:20 AM EDT Laboratory Lab Mobile Phlebotomy [facility] [address] [place] [address] [facility], [facility] Mobile Home Draw [address] [place] [address] 12/02/2023 10:40 AM EDT Office Visit Family Medicine [address] [place] [phone] Shelli Ritter MD [address] [place] [address] [place] [address] 12/14/2023 10:15 AM EDT Office Visit General Surgery, [facility] [address] [place] [place] [address] Monae Ruiz MD [address] [place] [address] 04/16/2024 10:20 AM EDT Office Visit Rheumatology [address] [place] [phone] Live Spann MD [address] [place] [address] Scheduled Orders Name Type Priority Associated Diagnoses [...] D LEVEL ONCE IN A LIFETIME-USE SMARTSET# [id number] Completed 05/04/2021, 09/01/2010 LUNG CANCER SCREENING - USE SMARTSET [id number] Completed 2023, 12/27/2022, 11/09/2022 GARDASIL-HPV IMMUNIZATION SERIES Aged Out No longer eligible based on patient's age to complete this topic Hepatitis B Aged Out No longer eligi ble based on patient's age to complete this topic MENINGOCOCCAL (MENACTRA/MENVEO) Aged Out No longer eligible based on patient's age to complete this topic documented as of this encounter Medical Devices Implanted Type Area Ore Roaster Device Identifier Shelf Expiration Date Model / Serial / Lot Power Port 8fr Sngl Lumen Plas - [id number] Implanted:Qty : 1 on 04/21/2023 by Artemio Bynum DO at OR [facility] Right: Chest CR BARD : PERIPHERAL VASCULAR 06/21/2024 [id number] / / [id number] Power Port 8fr Sngl Lumen Plas - [id number] Implanted:Qty : 1 on 04/21/2023 by Artemio Bynum DO at OR [facility] CR BARD : PERIPHERAL VASCULAR [id number] 06/21/2024 [id number] / / [id number] documented as of this encounter Visit Diagnoses [...] patient or by statute hierarchy) Care Teams Supply Chain Specialist Relationship Specialty Start Date End Date Shelli Ritter MD [address] [place] [address] [place] [address] PCP - General Family Medicine 10/30/15 documented as of this encounter
[2024-03-23 03:48] LABS: BUN Creatinine Ratio 12.2 (10-20); Calcium 8.2 mg/dl (8.6-10.3); Est GFR (African American) 121.9 ml/min; Est GFR (Non-African American) 105.2 ml/min
[2024-03-23] MEDS: GABAPENTIN 600 MG TAB PO SCH ×2 (06:27→21:17)
[2024-03-23 07:46] LABS: Basophils # (auto) 0.02 K/uL (0.00-0.20); Basophils % (auto) 0.9 %; Eosinophils # (auto) 0.02 K/uL (0.00-0.50); Eosinophils % (auto) 0.9 %; Hematocrit (blood only) 24.4 % (37.0-47.0); Hemoglobin 8.2 g/dl (12.0-16.0); Immature Granulocytes # (auto) 0.01 K/uL (0.01-0.20); Immature Granulocytes % (auto) 0.4 %; Lymphocytes # (auto) 0.44 K/uL (1.20-3.40); Lymphocytes % (auto) 19.7 %; Mean Corpuscular Hemoglobin 30.6 pg (25.0-34.0); Mean Corpuscular Hgb Conc 33.6 g/dL (32.0-36.0); Mean Platelet Volume 9.8 fL (9.4-12.4); Monocytes # (auto) 0.26 K/uL (0.11-0.59); Monocytes % (auto) 11.7 %; Neutrophils # (auto) 1.48 K/uL (1.40-6.50); Neutrophils % (auto) 66.4 %; Platelet Count 127 K/uL (130-400); RDW Coefficient of Variation 13.8 % (11.5-14.5); Red Blood Count 2.68 M/uL (4.20-5.40); White Blood Count 2.23 K/ul (4.8-10.8)
[2024-03-23 07:52] LABS: Albumin Level 3.1 gm/dl (3.4-5.0); Bilirubin,Total 0.5 mg/dl (0.2-1.0); Calcium 8.3 mg/dl (8.6-10.3); Magnesium 1.7 mg/dl (1.7-2.4); Potassium 4.1 mmol/L (3.5-5.1)
[2024-03-23 07:58] LABS: Albumin Globulin Ratio 1.5 (0.9-2); BUN Creatinine Ratio 11.1 (10-20); Creatinine Clr Calc Pharmacy 82.6 ml/min; Est GFR (Non-African American) 101.8 ml/min; Globulin 2.1 gm/dl (2.5-4.0); Total Protein 5.2 gm/dl (6.0-8.3)
[2024-03-23 09:32] LABS: BUN Creatinine Ratio 11.3 (10-20); Calcium 8.5 mg/dl (8.6-10.3); Creatinine Clr Calc Pharmacy 84.1 ml/min; Est GFR (African American) 118.8 ml/min; Est GFR (Non-African American) 102.5 ml/min; Potassium 4.3 mmol/L (3.5-5.1)
--- NOTE | 2024-03-23 10:16 | Gastrointestinal Consultation ---
<Statement entered by Carlita Tristan MD - 03/23/24 14:54> I have examined the patient, reviewed the History & Physical and in the interval since the performance of the History & Physical I have noted the following changes of clinical significance: no changes noted. I agree with the documentation provided by [place] with no additional comments. Amanda needs to see colorectal surgery to assess her rectal cancer as soon as possible. Date of Consultation March 23, 2024 Assessment & Plan (1) GI bleeding: Patient notes ongoing rectal bleeding since prior to her rectal cancer diagnosis in 2022. CT does not show any new reasons for bleeding. She does have a history of radiation, but discontinued chemo early due to side effects. She is awaiting colorectal surgery for the cancer, but she has not called to set this up since her previous colorectal surgeon left. Would continue to monitor H/H, arrange for her to re establish with colorectal sugery for her planned scope/surgery, oncology, and monitor her bleeding while admitted. While she notes her bleeding has been ongoing since prior to her cancer diagnosis, if acutely worsening can consider other etiologies such as radiation proctitis issues. History of Present Illness Reason for Consultation: dark red rectal bleeding, known rectal ca s/p xrt Attending Physician: Mihai Ryan MD History of Present Illness Patient is a 59 yo female with PMH of a known rectal cancer. She had a colonoscopy on 12/2022 that indicated a frond-like mass 10 cm proximal to the anus and biopsies returned as an infiltrative adenocarcinoma. She notes that she was seeing oncology & colorectal surgery through [facility]. I do not have access to these records, however she notes that she stopped chemotherapy early due to side effects. She did complete radiation and was to have surgery with the colorectal team, however she notes her surgeon left and she has not yet rescheduled with someone else. She notes that the colo rectal surgeon had planned to repeat her scope to assess the current situation prior to surgery. She presented to the ED with lower extremity weakness and falls. She has had significant issues walking. She notes since prior to her diagnosis of cancer, she has had ongoing chronic dark red bleeding. She does endorse significant alcohol use (5-7 16 oz beers daily). She does not eat much. She denies NSAID use. She denies heartburn, reflux, epigastric pain, hematemesis, hematochezia or melena. H/H presently is 8.2/24.4 which is actually higher than it has been since prior to her cancer treatments. A CT scan of the abdomen/pelvis showed post-treatment stranding without a visible mass on the study. Allergies Allergy/AdvReac Type Severity Reaction Status Date / Time No Known Allergies Allergy Verified 03/22/24 17:36 Home Medications Medication Instructions Recorded Confirmed Type buspirone 15 mg tablet 15 mg PO BID 06/04/23 03/22/24 History folic acid 1 mg tablet 1 mg PO DAILY 06/04/23 03/22/24 History lisinopril 40 mg tablet 40 mg PO DAILY 06/04/23 03/22/24 History metoprolol tartrate 50 mg tablet 50 mg PO BID 06/04/23 03/22/24 History pantoprazole 40 mg tablet,delayed 40 mg PO DAILY 06/04/23 03/22/24 History release sertraline 100 mg tablet 100 mg PO DAILY 06/04/23 03/22/24 History magnesium oxide 400 mg (241.3 mg 400 mg PO QAM #30 tabs 06/09/23 03/22/24 Rx magnesium) tablet polyethylene glycol 3350 17 gram 17 g PO DAILY PRN constipation #0 06/09/23 03/22/24 Rx oral powder packet (Miralax) ea Patient History Medical History History of peptic ulcer Feeling suicidal Depression Anxiety Fracture of lumbar spine Surgical History H/O colonoscopy H/O esophagogastroduodenoscopy S/P D&C (status post dilation and curettage) Family History Family/Other Cancer brain and lung from separate female cousins Social History Smoking Status: Former smoker Tobacco Type: Cigarettes Second Hand Exposure: No; Do You Dip or Chew Tobacco: No; Hx Alcohol Use: Yes Alcohol type: beer Alcohol Intake Frequency: 4 or More x per/Week Alcohol Intake Frequency Comment: 6-9 16oz beer/day Hx Substance Use: No Preferred Language: Singaporean Communication Ability: Effective Visual Impairment: No Limitations Hearing Ability: Normal Film Librarian Required: No Beliefs That Will Affect Care: None Current Living Situation: Spouse Current Living Situation Comment: Home current occupational status: unemployed Other Information That Helps Us Care for You: No Feels Safe at Home: Yes Safety Concerns: Feels Safe At This Time during the past year weight has: remained stable Assistive Devices: Brace/Splint/Immobilizer, Cane, Glasses, Walker and Wheelchair Review of Systems Constitutional: no fever and no chills Respiratory: no cough and no dyspnea Cardiovascular: no chest pain Gastrointestinal: + blood in stools; no abdominal pain Physical Exam Constitutional: well developed Respiratory: normal respiratory effort Cardiovascular: Rate/Rhythm: regular rate Gastrointestinal (Abdomen): normal bowel sounds, soft, nontender, no hepatosplenomegaly Psychiatric: Orientation: alert and oriented x 3 Results & Data Vital Signs (Past 12 Hours) Vital Signs Temp Pulse Pulse Resp BP Pulse Ox O2 Del Method 03/23/24 08:05 36.6 C 76 18 96/61 L 96 Room Air 03/23/24 07:31 70 03/23/24 04:08 37.3 C 77 18 113/71 96 Room Air 03/23/24 00:12 73 03/22/24 23:17 Room Air 03/22/24 22:51 36.5 C 74 16 175/83 H 99 Room Air PG Care Time/CCT Total # of Minutes Spent Total Time Spent with Patient: Total time spent is greater than 50% in coordination of care (as documented) at patient's floor/unit and/or counseling patient: Coding Level of Care Code 35566 IN/OBS CONSULT LVL 4,60M Diagnoses GI bleeding K92.2
[2024-03-23] MEDS: PANTOprazole 40 MG TAB PO SCH (11:04)
[2024-03-23] MEDS: SERTRALINE HCL 100 MG TABLET PO SCH (11:05)
[2024-03-23] MEDS: lisinopril 40 MG TAB PO SCH (11:05)
[2024-03-23] MEDS: FOLIC ACID 1 MG TAB PO SCH (11:05)
--- NOTE | 2024-03-23 14:30 | Hospitalist Progress Note ---
Date of Service March 23, 2024 Assessment & Plan (1) Weakness generalized: (2) Frequent falls: (3) Hypokalemia: (4) Hypomagnesemia: (5) Hyponatremia: (6) Alcohol abuse: (7) Rectal cancer: Plan This is a 59-year-old female who has significant past medical history of HTN, rectal cancer status post radiation and chemo however did not completely finish chemotherapy, iron deficiency anemia due to chronic blood loss, senile osteoporosis, history of compression fractures, chronic alcoholism, ataxia, chronic hyponatremia and anxiety who presents to ED secondary to lower extremity weakness and frequent falls. Generalized weakness Frequent falls Chronic Hyponatremia in setting of "beer potomania" Low urine and serum osm Has been receiving IVF NSS + 20meq KCL 80cc/hr Noted to have sodium of 127 on admission and has improved up to 133 as of this morning 8-24 Clinically much better Awaiting PT and OT evaluation-most likely she will need to go to rehab for short-term at least Known rectal Cancer: s/p XRT, did not complete chemo treatment due to side effects, Was suppose to undergo surgery but has not done this, CT shows Posttreatment stranding is seen in the rectum and perirectal fat. Appreciate GI input and recommendation Has had 1 episode of bleed per rectum in the emergency room Bowel has not moved since then Was advised to have an appointment with colorectal surgery Strongly advised to see the oncologist for further chemo Alcohol abuse: Educated on cessation, AWSS protocol with gabapentin taper, PRN lorazepam, IV thiamine and oral folate No signs and or symptoms of withdrawal Electrolyte abnormalities Has hypokalemia and hypomagnesemia Replaced and will monitor Compression fx/Known osteoporosis: Vitamin D level has been low and will give vitamin D orally Chronic Anemia: 2/2 iron def and chronic rectal bleeding. Pt did have a large bloody bm in ED. Monitor h/h closely. Willl consult GI while inpt, continue oral protonix DVT ppx: SCDS PCP: Riya FULL CODE Dispo: admit to tele, likely to remain hospitalized until electrolyte derangements resolve, will need PT/OT to determine dispo Admission and Anticipated Discharge Date Admission Date: March 22, 2024 Subjective 03/23/2024 The patient was seen and examined in medical telemetry unit She has been feeling better Denies any more dizziness at rest No more bloody bowel movement and denies any significant pain Review of Systems Review of Systems: All systems reviewed and are unremarkable except as noted below Physical Exam Physical Exam: Sitting on a chair without any acute distress but is very anxious Constitutional: + ill appearing and + thin Eyes: PERRL, conjunctivae normal, anicteric sclerae ENMT: external ear and nose normal, oropharynx normal Neck: trachea midline, no thyromegaly Respiratory: no respiratory distress Auscultation: lungs clear to auscultation bilaterally Cardiovascular: Rate/Rhythm: regular rate and regular rhythm; not tachycardic Heart Sounds: normal S1 and normal S2; no murmur Extremities: no edema Gastrointestinal (Abdomen): Inspection/Auscultation: normal bowel sounds; abdomen not distended Percussion/Palpation: abdomen soft; abdomen nontender Musculoskeletal: No acute arthritis involving any of the joints Neurologic: normal touch/pain/proprioception and moves all extremities; no focal motor deficits Psychiatric: Mood: + anxious mood Lymphatic: no cervical or axillary lymphadenopathy Results & Data Results & Data Vital Signs (Past 12 Hours) Vital Signs Temp Pulse Pulse Resp BP Pulse Ox O2 Del Method 03/23/24 12:06 36.5 C 86 18 102/66 98 Room Air 03/23/24 08:05 36.6 C 76 18 96/61 L 96 Room Air 03/23/24 08:00 Room Air 03/23/24 07:31 70 03/23/24 04:08 37.3 C 77 18 113/71 96 Room Air Laboratory Results Short CBC 03/22/24 03/22/24 03/23/24 Range/Units 14:06 20:47 07:01 WBC 2.93 L 3.28 L 2.23 L (4.8-10.8) K/ul Hgb 8.9 L 8.6 L 8.2 L (12.0-16.0) g/dl Hct 26.6 L 24.9 L 24.4 L (37.0-47.0) % Plt Count 151 132 127 L (130-400) K/uL BMP 03/22/24 03/22/24 03/23/24 14:06 20:47 03:03 Sodium 126 L 127 L 131 L Potassium 3.2 L 3.7 4.0 Chloride 92 L 95 L 100 Carbon Dioxide 23 23 21 BUN 6 6 6 Creatinine 0.51 L 0.49 L 0.49 L Glucose 88 122 H 85 Calcium 9.3 8.9 8.2 L 03/23/24 03/23/24 07:01 08:56 Sodium 133 L 133 L Potassium 4.1 4.3 Chloride 102 103 Carbon Dioxide 22 23 BUN 6 6 Creatinine 0.54 L 0.53 L Glucose 76 100 H Calcium 8.3 L 8.5 L Liver Function 03/22/24 03/23/24 Range/Units 14:06 07:01 Total Bilirubin 0.6 0.5 (0.2-1.0) mg/dl AST 80 H 72 H (13-39) U/L ALT 19 16 (7-52) U/L Alkaline Phosphatase 93 79 (34-104) U/L Albumin 3.7 3.1 L (3.4-5.0) gm/dl Urine 03/22/24 Range/Units 17:59 Urine Color Yellow Urine Appearance Clear (Clear) Urine pH 6.0 (4.5-7.5) Ur Specific Ledger 1.019 (1.000-1.030) Urine Protein Negative (Negative) Urine Glucose (UA) Negative (Negative) Medications Administered Current Inpatient Medications Acetaminophen (Acetaminophen 325 Mg Tab) 650 mg PO Q4H PRN PRN Reason: Pain or Fever Stop: 04/21/24 19:33 Buspirone HCl (Buspirone 15 Mg Tab) 15 mg PO BID [facility] Stop: 04/21/24 20:59 Last Admin: 03/23/24 09:35 Dose: 15 mg Folic Acid (Folic Acid 1 Mg Tab) 1 mg PO QAM [facility] Stop: 04/22/24 08:59 Last Admin: 03/23/24 11:05 Dose: 1 mg Gabapentin (Gabapentin 600 Mg Tab) 600 mg PO Q8H [facility] Stop: 03/24/24 14:01 Gabapentin (Gabapentin 600 Mg Tab) 600 mg PO Q12H [facility] Stop: 03/25/24 12:01 Gabapentin (Gabapentin 600 Mg Tab) 600 mg PO Q24H [facility] Stop: 03/26/24 12:01 Potassium Chloride/Sodium Chloride (Normal Saline W/20 Meq Kcl) 20 meq in 1,000 mls @ 80 mls/hr IV .[id number] [facility]; Protocol Stop: 04/21/24 19:29 Last Admin: 03/23/24 09:35 Dose: 80 mls/hr Lorazepam 1 mg/ Syringe 1 mls @ 2 mls/min IV ONE PRN; Protocol PRN Reason: EtoH Withdrawal AWSS 6-10 Thiamine HCl 100 mg/ Syringe 10 mls @ 2 mls/min IV QAM [facility] Stop: 04/21/24 19:59 Last Admin: 03/23/24 09:36 Dose: 2 mls/min Lidocaine (Lidocaine 5% 1 Patch) 1 patch TD QAM [facility] Stop: 04/21/24 19:44 Last Admin: 03/23/24 11:05 Dose: 1 patch Lisinopril (Lisinopril 40 Mg Tab) 40 mg PO DAILY [facility] Stop: 04/22/24 08:59 Last Admin: 03/23/24 11:05 Dose: 40 mg Magnesium Hydroxide (Magnesium Hydroxide Susp 30 Ml Udc) 30 ml PO Q12H PRN PRN Reason: Constipation Stop: 04/21/24 19:33 Magnesium Oxide (Magnesium Oxide 400 Mg Tab) 400 mg PO BID [facility] Stop: 04/21/24 20:59 Last Admin: 03/23/24 09:35 Dose: 400 mg Metoprolol Tartrate (Metoprolol Tartrate 50 Mg Tab) 50 mg PO BID [facility] Stop: 04/21/24 20:59 Last Admin: 03/23/24 09:38 Dose: Not Given Miscellaneous (Remove Lidoderm Patch) 1 each N/A DAILY@2100 [facility] Stop: 04/21/24 20:59 Last Admin: 03/22/24 22:44 Dose: Not Given Ondansetron HCl (Ondansetron Inj 2 Mg/Ml 2 Ml Vial) 4 mg IV Q6H PRN PRN Reason: Nausea Stop: 04/21/24 19:33 Pantoprazole Sodium (Pantoprazole 40 Mg Tab) 40 mg PO DAILY [facility] Stop: 04/22/24 08:59 Last Admin: 03/23/24 11:04 Dose: 40 mg Polyethylene Glycol (Polyethylene (Miralax) 17 Gm Pack) 17 gm PO DAILY PRN PRN Reason: Constipation Stop: 04/21/24 19:33 Sertraline HCl (Sertraline Hcl 100 Mg Tablet) 100 mg PO DAILY [facility] Stop: 04/22/24 08:59 Last Admin: 03/23/24 11:05 Dose: 100 mg
[2024-03-23 16:02] LABS: BUN Creatinine Ratio 12.9 (10-20); Calcium 8.5 mg/dl (8.6-10.3); Creatinine Clr Calc Pharmacy 71.9 ml/min; Est GFR (African American) 112.8 ml/min; Est GFR (Non-African American) 97.3 ml/min; Potassium 4.1 mmol/L (3.5-5.1)
[2024-03-23] MEDS: ERGOCALCIFEROL 1250 MCG (50,000 UNITS) CAP PO SCH (18:28)
--- NOTE | 2024-03-23 19:24 | Electrocardiogram Report ---
Test Reason : Blood Pressure : / mmHG Vent. Rate : 069 BPM Atrial Rate : 069 BPM P-R Int : 156 ms QRS Dur : 062 ms QT Int : 408 ms P-R-T Axes : 076 -18 020 degrees QTc Int : 437 ms Normal sinus rhythm Low voltage QRS Borderline ECG When compared with ECG of 22-MAR-2024 14:04, Artifact has improved Confirmed by Yaya Koroma ([id number]) on 03/23/2024 7:24:16 PM Referred By: REFERRED SELF Confirmed By:Yaya Koroma
--- NOTE | 2024-03-23 19:24 | Electrocardiogram Report ---
Test Reason : Blood Pressure : / mmHG Vent. Rate : 082 BPM Atrial Rate : 000 BPM P-R Int : 000 ms QRS Dur : 066 ms QT Int : 372 ms P-R-T Axes : 000 -08 027 degrees QTc Int : 434 ms Poor data quality, interpretation may be adversely affected Indeterminate rhythm due to artifact When compared with ECG of 03-JUN-2023 14:39, Significant artifact is now present Confirmed by Yaya Koroma ([id number]) on 03/23/2024 7:23:38 PM Referred By: REFERRED SELF Confirmed By:Yaya Koroma
--- NOTE | 2024-03-24 14:14 | Hospitalist Progress Note ---
Date of Service March 24, 2024 Assessment & Plan (1) Weakness generalized: (2) Frequent falls: (3) Hypokalemia: (4) Hypomagnesemia: (5) Hyponatremia: (6) Alcohol abuse: (7) Rectal cancer: Plan This is a 59-year-old female who has significant past medical history of HTN, rectal cancer status post radiation and chemo however did not completely finish chemotherapy, iron deficiency anemia due to chronic blood loss, senile osteoporosis, history of compression fractures, chronic alcoholism, ataxia, chronic hyponatremia and anxiety who presents to ED secondary to lower extremity weakness and frequent falls. Generalized weakness Frequent falls Chronic Hyponatremia in setting of "beer potomania" Low urine and serum osm Has been receiving IVF NSS + 20meq KCL 80cc/hr Noted to have sodium of 127 on admission and has improved up to 133 as of this morning 8-24 Clinically much better Awaiting PT and OT evaluation-most likely she will need to go to rehab for short-term at least Remains medically stable Has had PT evaluation and recommended rehab Still has weakness Known rectal Cancer: s/p XRT, did not complete chemo treatment due to side effects, Was suppose to undergo surgery but has not done this, CT shows Posttreatment stranding is seen in the rectum and perirectal fat. Appreciate GI input and recommendation Has had 1 episode of bleed per rectum in the emergency room Bowel has not moved since then Was advised to have an appointment with colorectal surgery Strongly advised to see the oncologist for further chemo Bowel has not moved yet No more bleeding since admission and hemoglobin remains stable Alcohol abuse: Educated on cessation, AWSS protocol with gabapentin taper, PRN lorazepam, IV thiamine and oral folate No signs and or symptoms of withdrawal Electrolyte abnormalities Has hypokalemia and hypomagnesemia Replaced and will monitor Compression fx/Known osteoporosis: Vitamin D level has been low and will give vitamin D orally Chronic Anemia: 2/2 iron def and chronic rectal bleeding. Pt did have a large bloody bm in ED. Monitor h/h closely. Willl consult GI while inpt, continue oral protonix DVT ppx: SCDS PCP: Riya FULL CODE Dispo: admit to tele, likely to remain hospitalized until electrolyte de rangements resolve, will need PT/OT to determine dispo Awaiting placement Admission and Anticipated Discharge Date Admission Date: March 22, 2024 Subjective 03/23/2024 The patient was seen and examined in medical telemetry unit She has been feeling better Denies any more dizziness at rest No more bloody bowel movement and denies any significant pain 03/24/2024 Patient was seen and examined in medical telemetry unit She has been feeling much better Denies any abdominal pain, nausea and or vomiting Has not had any bowel movement since admission She has not had any PT as of yet Review of Systems Review of Systems: All systems reviewed and are unremarkable except as noted below Physical Exam Physical Exam: Lying in bed without any acute distress Constitutional: + ill appearing and + thin Eyes: PERRL, conjunctivae normal, anicteric sclerae ENMT: external ear and nose normal, oropharynx normal Neck: trachea midline, no thyromegaly Respiratory: no respiratory distress Auscultation: lungs clear to auscultation bilaterally Cardiovascular: Rate/Rhythm: regular rate and regular rhythm; not tachycardic Heart Sounds: normal S1 and normal S2; no murmur Extremities: no edema Gastrointestinal (Abdomen): Inspection/Auscultation: normal bowel sounds; abdomen not distended Percussion/Palpation: abdomen soft; abdomen nontender Neurologic: normal touch/pain/proprioception and moves all extremities; no focal motor deficits Psychiatric: Mood: + anxious mood Lymphatic: no cervical or axillary lymphadenopathy Results & Data Results & Data Vital Signs (Past 12 Hours) Vital Signs Temp Pulse Pulse Resp BP Pulse Ox O2 Del Method 03/24/24 11:47 36.9 C 76 18 113/73 97 Room Air 03/24/24 08:16 72 03/24/24 08:16 03/24/24 07:58 36.9 C 66 18 146/84 H 97 Room Air 03/24/24 07:16 Room Air 03/24/24 04:15 37.0 C 74 16 151/83 H 96 Room Air O2 Del Method 03/24/24 11:47 03/24/24 08:16 03/24/24 08:16 Room Air 03/24/24 07:58 03/24/24 07:16 03/24/24 04:15 Laboratory Results [facility] 03/23/24 15:16 Sodium 131 L Potassium 4.1 Chloride 102 Carbon Dioxide 23 BUN 8 Creatinine 0.62 Glucose 116 H Calcium 8.5 L Medications Administered Current Inpatient Medications Acetaminophen (Acetaminophen 325 Mg Tab) 650 mg PO Q4H PRN PRN Reason: Pain or Fever Stop: 04/21/24 19:33 Buspirone HCl (Buspirone 15 Mg Tab) 15 mg PO BID [facility] Stop: 04/21/24 20:59 Last Admin: 03/24/24 07:48 Dose: 15 mg Ergocalciferol (Ergocalciferol 1250 Mcg (50,000 Units) Cap) 1,250 mcg PO Q7D [facility] Stop: 04/27/24 16:01 Last Admin: 03/23/24 18:28 Dose: 1,250 mcg Folic Acid (Folic Acid 1 Mg Tab) 1 mg PO QAM [facility] Stop: 04/22/24 08:59 Last Admin: 03/24/24 07:48 Dose: 1 mg Gabapentin (Gabapentin 600 Mg Tab) 600 mg PO Q12H [facility] Stop: 03/25/24 12:01 Gabapentin (Gabapentin 600 Mg Tab) 600 mg PO Q24H [facility] Stop: 03/26/24 12:01 Potassium Chloride/Sodium Chloride (Normal Saline W/20 Meq Kcl) 20 meq in 1,000 mls @ 80 mls/hr IV .[id number] [facility]; Protocol Stop: 04/21/24 19:29 Last Admin: 03/24/24 07:52 Dose: 80 mls/hr Lorazepam 1 mg/ Syringe 1 mls @ 2 mls/min IV ONE PRN; Protocol PRN Reason: EtoH Withdrawal AWSS 6-10 Thiamine HCl 100 mg/ Syringe 10 mls @ 2 mls/min IV QAM [facility] Stop: 04/21/24 19:59 Last Admin: 03/24/24 07:49 Dose: 2 mls/min Lidocaine (L[facility] 5% 1 Patch) [facility]: 04/21/24 19:44 Last Admin: 03/24/24 07:48 Dose: 1 patch Lisinopril (Lisinopril 40 Mg Tab) 40 mg PO DAILY [facility] Stop: 04/22/24 08:59 Last Admin: 03/24/24 07:48 Dose: 40 mg Magnesium Hydroxide (Magnesium Hydroxide Susp 30 Ml Udc) 30 ml PO Q12H PRN PRN Reason: Constipation Stop: 04/21/24 19:33 Magnesium Oxide (Magnesium Oxide 400 Mg Tab) 400 mg PO BID [facility] Stop: 04/21/24 20:59 Last Admin: 08/03/24 07:48 Dose: 400 mg Metoprolol Tartrate (Metoprolol Tartrate 50 Mg Tab) 50 mg PO BID [facility] Stop: 04/21/24 20:59 Last Admin: 03/24/24 07:48 Dose: 50 mg Miscellaneous (Remove Lidoderm Patch) 1 each N/A DAILY@2100 [facility] Stop: 04/21/24 20:59 Last Admin: 03/23/24 21:29 Dose: Not Given Ondansetron HCl (Ondansetron Inj 2 Mg/Ml 2 Ml Vial) 4 mg IV Q6H PRN PRN Reason: Nausea Stop: 04/21/24 19:33 Pantoprazole Sodium (Pantoprazole 40 Mg Tab) 40 mg PO DAILY [facility] Stop: 04/22/24 08:59 Last Admin: 03/24/24 07:48 Dose: 40 mg Polyethylene Glycol (Polyethylene (Miralax) 17 Gm Pack) 17 gm PO DAILY PRN PRN Reason: Constipation Stop: 04/21/24 19:33 Sertraline HCl (Sertraline Hcl 100 Mg Tablet) 100 mg PO DAILY [facility] Stop: 04/22/24 08:59 Last Admin: 03/24/24 07:48 Dose: 100 mg
[2024-03-24] MEDS: GABAPENTIN 600 MG TAB PO SCH (23:03)
[2024-03-25 06:33] LABS: Basophils # (auto) 0.01 K/uL (0.00-0.20); Basophils % (auto) 0.5 %; Eosinophils # (auto) 0.05 K/uL (0.00-0.50); Eosinophils % (auto) 2.5 %; Hematocrit (blood only) 22.4 % (37.0-47.0); Hemoglobin 7.4 g/dl (12.0-16.0); Immature Granulocytes # (auto) 0.01 K/uL (0.01-0.20); Immature Granulocytes % (auto) 0.5 %; Lymphocytes # (auto) 0.61 K/uL (1.20-3.40); Mean Corpuscular Hemoglobin 30.8 pg (25.0-34.0); Mean Corpuscular Volume 93.3 fL (80.0-100.0); Mean Platelet Volume 9.6 fL (9.4-12.4); Monocytes # (auto) 0.28 K/uL (0.11-0.59); Monocytes % (auto) 14.2 %; Neutrophils # (auto) 1.01 K/uL (1.40-6.50); Neutrophils % (auto) 51.3 %; Platelet Count 130 K/uL (130-400); RDW Coefficient of Variation 13.9 % (11.5-14.5); RDW Standard Deviation 47.1 fL (36.4-46.3); White Blood Count 1.97 K/ul (4.8-10.8)
[2024-03-25 06:49] LABS: BUN Creatinine Ratio 13.3 (10-20); Calcium 8.3 mg/dl (8.6-10.3); Creatinine Clr Calc Pharmacy 99.1 ml/min; Est GFR (African American) 125.3 ml/min; Est GFR (Non-African American) 108.1 ml/min; Potassium 4.5 mmol/L (3.5-5.1)
[2024-03-25 07:30] LABS: RBC Morphology Unremarkable
--- NOTE | 2024-03-25 12:56 | Hospitalist Progress Note ---
Date of Service March 25, 2024 Assessment & Plan (1) Weakness generalized: (2) Frequent falls: (3) Hypokalemia: (4) Hypomagnesemia: (5) Hyponatremia: (6) Alcohol abuse: (7) Rectal cancer: Plan This is a 59-year-old female who has significant past medical history of HTN, rectal cancer status post radiation and chemo however did not completely finish chemotherapy, iron deficiency anemia due to chronic blood loss, senile osteoporosis, history of compression fractures, chronic alcoholism, ataxia, chronic hyponatremia and anxiety who presents to ED secondary to lower extremity weakness and frequent falls. Generalized weakness Frequent falls Chronic Hyponatremia in setting of "beer potomania" Low urine and serum osm Has been receiving IVF NSS + 20meq KCL 80cc/hr Noted to have sodium of 127 on admission and has improved up to 133 as of this morning 8-24 Clinically much better Awaiting PT and OT evaluation-most likely she will need to go to rehab for short-term at least Remains medically stable Has had PT evaluation and recommended rehab Remains stable and denies any significant symptoms Awaiting placement Known rectal Cancer: s/p XRT, did not complete chemo treatment due to side effects, Was suppose to undergo surgery but has not done this, CT shows Posttreatment stranding is seen in the rectum and perirectal fat. Appreciate GI input and recommendation Has had 1 episode of bleed per rectum in the emergency room Bowel has not moved since then Was advised to have an appointment with colorectal surgery Strongly advised to see the oncologist for further chemo Bowel has not moved yet No more bleeding since admission and hemoglobin remains stable Hemoglobin remains on the lower side at 7.4 but no evidence of bleeding per rectum Alcohol abuse: Educated on cessation, AWSS protocol with gabapentin taper, PRN lorazepam, IV thiamine and oral folate No signs and or symptoms of withdrawal Electrolyte abnormalities Has hypokalemia and hypomagnesemia Replaced and will monitor Compression fx/Known osteoporosis: Vitamin D level has been low and will give vitamin D orally Chronic Anemia: 2/2 iron def and chronic rectal bleeding. Pt did have a large bloody bm in ED. Monitor h/h closely. Willl consult GI while inpt, continue oral protonix DVT ppx: SCDS PCP: Riya FULL CODE Dispo: admit to tele, likely to remain hospitalized until electrolyte derangements resolve, will need PT/OT to determine dispo Awaiting placement Admission and Anticipated Discharge Date Admission Date: March 22, 2024 Subjective 03/23/2024 The patient was seen and examined in medical telemetry unit She has been feeling better Denies any more dizziness at rest No more bloody bowel movement and denies any significant pain 03/24/2024 Patient was seen and examined in medical telemetry unit She has been feeling much better Denies any abdominal pain, nausea and or vomiting Has not had any bowel movement since admission She has not had any PT as of yet 03/25/2024 The patient was seen and examined in medical telemetry unit She has been stable in bed Has had physical therapy on first of this month and recommended rehab She has had bowel movement without any blood in it Review of Systems Review of Systems: All systems reviewed and are unremarkable except as noted below Physical Exam Physical Exam: Lying in bed without any acute distress Constitutional: + ill appearing and + thin Eyes: PERRL, conjunctivae normal, anicteric sclerae ENMT: external ear and nose normal, oropharynx normal Neck: trachea midline, no thyromegaly Respiratory: no respiratory distress Auscultation: lungs clear to auscultation bilaterally Cardiovascular: Rate/Rhythm: regular rate and regular rhythm; not tachycardic Heart Sounds: normal S1 and normal S2; no murmur Extremities: no edema Gastrointestinal (Abdomen): Inspection/Auscultation: normal bowel sounds; abdomen not distended Percussion/Palpation: abdomen soft; abdomen nontender Neurologic: normal touch/pain/proprioception and moves all extremities; no focal motor deficits Psychiatric: Mood: + anxious mood Lymphatic: no cervical or axillary lymphadenopathy Results & Data Results & Data Vital Signs (Past 12 Hours) Vital Signs Temp Pulse Pulse Resp BP Pulse Ox Pulse Ox 03/25/24 11:51 36.6 C 71 16 117/73 99 03/25/24 09:20 75 03/25/24 08:00 96 03/25/24 07:37 36.6 C 73 16 149/87 H 100 03/25/24 03:59 36.5 C 71 14 150/85 H 98 O2 Del Method O2 Del Method 03/25/24 11:51 Room Air 03/25/24 09:20 03/25/24 08:00 Room Air 03/25/24 07:37 Room Air 03/25/24 03:59 Room Air Laboratory Results Short CBC 03/25/24 Range/Units 05:50 WBC 1.97 L (4.8-10.8) K/ul Hgb 7.4 L (12.0-16.0) g/dl Hct 22.4 L (37.0-47.0) % Plt Count 130 (130-400) K/uL BMP 03/25/24 05:50 Sodium 135 L Potassium 4.5 Chloride 107 Carbon Dioxide 24 BUN 6 Creatinine 0.45 L Glucose 93 Calcium 8.3 L Medications Administered Current Inpatient Medications Acetaminophen (Acetaminophen 325 Mg Tab) 650 mg PO Q4H PRN PRN Reason: Pain or Fever Stop: 04/21/24 19:33 Buspirone HCl (Buspirone 15 Mg Tab) 15 mg PO BID [facility] Stop: 04/21/24 20:59 Last Admin: 03/25/24 08:11 Dose: 15 mg Ergocalciferol (Ergocalciferol 1250 Mcg (50,000 Units) Cap) 1,250 mcg PO Q7D [facility] Stop: 04/27/24 16:01 Last Admin: 03/23/24 18:28 Dose: 1,250 mcg Folic Acid (Folic Acid 1 Mg Tab) [facility] Stop: 04/22/24 08:59 Last Admin: 03/25/24 08:10 Dose: 1 mg Gabapentin (Gabapentin 600 Mg Tab) 600 mg PO Q24H [facility] Stop: 03/26/24 12:01 Potassium Chloride/Sodium Chloride (Normal Saline W/20 Meq Kcl) 20 meq in 1,000 mls @ 80 mls/hr IV .[id number] [facility]; Protocol Stop: 04/21/24 19:29 Last Admin: 03/25/24 09:21 Dose: 80 mls/hr Lorazepam 1 mg/ Syringe 1 mls @ 2 mls/min IV ONE PRN; Protocol PRN Reason: EtoH Withdrawal AWSS 6-10 Thiamine HCl 100 mg/ Syringe 10 mls @ 2 mls/min [facility] Stop: 04/21/24 19:59 Last Admin: 03/25/24 08:09 Dose: 2 mls/min Lidocaine (Lidocaine 5% 1 Patch) 1 patch TD [facility] Stop: 04/21/24 19:44 Last Admin: 03/25/24 08:11 Dose: 1 patch Lisinopril (Lisinopril 40 Mg Tab) 40 mg PO DAILY [facility] Stop: 04/22/24 08:59 Last Admin: 03/25/24 08:12 Dose: 40 mg Magnesium Hydroxide (Magnesium Hydroxide Susp 30 Ml Udc) 30 ml PO Q12H PRN PRN Reason: Constipation Stop: 04/21/24 19:33 Magnesium Oxide (Magnesium Oxide 400 Mg Tab) 400 mg PO BID [facility] Stop: 04/21/24 20:59 Last Admin: 03/25/24 08:09 Dose: 400 mg Metoprolol Tartrate (Metoprolol Tartrate 50 Mg Tab) 50 mg PO BID [facility] Stop: 04/21/24 20:59 Last Admin: 03/25/24 08:12 Dose: 50 mg Miscellaneous (Remove Lidoderm Patch) 1 each N/A DAILY@2100 [facility] Stop: 04/21/24 20:59 Last Admin: 03/24/24 20:48 Dose: Not Given Ondansetron HCl (Ondansetron Inj 2 Mg/Ml 2 Ml Vial) 4 mg IV Q6H PRN PRN Reason: Nausea Stop: 04/21/24 19:33 Pantoprazole Sodium (Pantoprazole 40 Mg Tab) 40 mg PO DAILY [facility] Stop: 04/22/24 08:59 Last Admin: 03/25/24 08:10 Dose: 40 mg Polyethylene Glycol (Polyethylene (Miralax) 17 Gm Pack) 17 gm PO DAILY PRN PRN Reason: Constipation Stop: 04/21/24 19:33 Sertraline HCl (Sertraline Hcl 100 Mg Tablet) 100 mg PO DAILY [facility] Stop: 04/22/24 08:59 Last Admin: 03/25/24 08:11 Dose: 100 mg
--- NOTE | 2024-03-25 13:52 | History & Physical Bridge Note ---
Date of Service March 25, 2024 History & Physical Bridge Note Amanda reports one BM in the last day which she did not see. She is eating much better than she does at home but still only ate ~50% of her meal at lunchtime. Her hgb is low but relatively stable. I recommend updating her iron studies and b12 and optimizing with IV iron and/or IM B12 pending results. In addition, it is of utmost importance that she see colorectal surgery yaneli and I recommend that an appointment be made for her prior to her discharge. She will need assistance with keeping appointments. I am struggling to understand why she is seemingly unable to walk. Defer to hospitalist for further work up/evaluation of issues with ambulation.
[2024-03-25 14:59] LABS: Thyroid Stimulating Hormone 4.501 uIu/ml (0.300-4.500)
[2024-03-25 15:53] LABS: T4 Free Thyroxine 0.8 ng/dl (0.61-1.60)
[2024-03-26 06:52] LABS: Hematocrit (blood only) 23.3 % (37.0-47.0); Hemoglobin 7.6 g/dl (12.0-16.0); Mean Corpuscular Hemoglobin 30.2 pg (25.0-34.0); Mean Corpuscular Hgb Conc 32.6 g/dL (32.0-36.0); Mean Corpuscular Volume 92.5 fL (80.0-100.0); Mean Platelet Volume 9.3 fL (9.4-12.4); Platelet Count 123 K/uL (130-400); RDW Coefficient of Variation 13.9 % (11.5-14.5); RDW Standard Deviation 46.9 fL (36.4-46.3); Red Blood Count 2.52 M/uL (4.20-5.40); White Blood Count 1.71 K/ul (4.8-10.8)
[2024-03-26 07:17] LABS: Basophils # (auto) 0.01 K/uL (0.00-0.20); Basophils % (auto) 0.6 %; Eosinophils # (auto) 0.04 K/uL (0.00-0.50); Eosinophils % (auto) 2.3 %; Lymphocytes # (auto) 0.49 K/uL (1.20-3.40); Lymphocytes % (auto) 28.7 %; Monocytes # (auto) 0.23 K/uL (0.11-0.59); Monocytes % (auto) 13.5 %; Neutrophils # (auto) 0.94 K/uL (1.40-6.50); Neutrophils % (auto) 54.9 %
[2024-03-26 07:20] LABS: BUN Creatinine Ratio 14.3 (10-20); Calcium 8.7 mg/dl (8.6-10.3); Creatinine Clr Calc Pharmacy 79.6 ml/min; Est GFR (African American) 116.6 ml/min; Est GFR (Non-African American) 100.6 ml/min; Potassium 4.4 mmol/L (3.5-5.1)
[2024-03-26] MEDS: GABAPENTIN 600 MG TAB PO SCH (14:03)
--- NOTE | 2024-03-26 15:23 | Hospitalist Progress Note ---
Date of Service March 26, 2024 Assessment & Plan (1) Weakness generalized: (2) Frequent falls: (3) Hypokalemia: (4) Hypomagnesemia: (5) Hyponatremia: (6) Alcohol abuse: (7) Rectal cancer: Plan This is a 59-year-old female who has significant past medical history of HTN, r ectal cancer status post radiation and chemo however did not completely finish chemotherapy, iron deficiency anemia due to chronic blood loss, senile osteoporosis, history of compression fractures, chronic alcoholism, ataxia, chronic hyponatremia and anxiety who presents to ED secondary to lower extremity weakness and frequent falls. Generalized weakness Frequent falls Chronic Hyponatremia in setting of "beer potomania" Low urine and serum osm Has been receiving IVF NSS + 20meq KCL 80cc/hr Noted to have sodium of 127 on admission and has improved up to 133 as of this morning 8-24 Clinically much better Awaiting PT and OT evaluation-most likely she will need to go to rehab for short-term at least Remains medically stable Has had PT evaluation and recommended rehab Remains stable and denies any significant symptoms Denies any more abdominal or rectal pain Known rectal Cancer: s/p XRT, did not complete chemo treatment due to side effects, Was suppose to undergo surgery but has not done this, CT shows Posttreatment stranding is seen in the rectum and perirectal fat. Appreciate GI input and recommendation Has had 1 episode of bleed per rectum in the emergency room Bowel has not moved since then Was advised to have an appointment with colorectal surgery Strongly advised to see the oncologist for further chemo Bowel has not moved yet No more bleeding since admission and hemoglobin remains stable Hemoglobin remains on the lower side at 7.4 but no evidence of bleeding per rectum No more bleeding per rectum has been having regular bowel movement and tolerating diet Awaiting placement Alcohol abuse: Educated on cessation, AWSS protocol with gabapentin taper, PRN lorazepam, IV thiamine and oral folate No signs and or symptoms of withdrawal Electrolyte abnormalities Has hypokalemia and hypomagnesemia Replaced and will monitor-electrolytes have been normalized Compression fx/Known osteoporosis: Vitamin D level has been low and will give vitamin D orally Chronic Anemia: 2/2 iron def and chronic rectal bleeding. Pt did have a large bloody bm in ED. Monitor h/h closely. Willl consult GI while inpt, continue oral protonix White count is minimally low and ANC is mildly low at 0.94 DVT ppx: SCDS PCP: Riya FULL CODE Dispo: admit to tele, likely to remain hospitalized until electrolyte derangements resolve, will need PT/OT to determine dispo Awaiting placement Admission and Anticipated Discharge Date Admission Date: March 22, 2024 Subjective 03/23/2024 The patient was seen and examined in medical telemetry unit She has been feeling better Denies any more dizziness at rest No more bloody bowel movement and denies any significant pain 03/24/2024 Patient was seen and examined in medical telemetry unit She has been feeling much better Denies any abdominal pain, nausea and or vomiting Has not had any bowel movement since admission She has not had any PT as of yet 03/25/2024 The patient was seen and examined in medical telemetry unit She has been stable in bed Has had physical therapy on first of this month and recommended rehab She has had bowel movement without any blood in it 03/26/2024 Patient was seen and examined in medical telemetry unit She has been stable and getting physical therapy and awaiting placement Had a bowel movement but no evidence of bleeding and does not have any abdominal pain Review of Systems Review of Systems: All systems reviewed and are unremarkable except as noted below Physical Exam Physical Exam: Lying in bed without any acute distress Constitutional: + ill appearing and + thin Eyes: PERRL, conjunctivae normal, anicteric sclerae ENMT: external ear and nose normal, oropharynx normal Neck: trachea midline, no thyromegaly Respiratory: no respiratory distress Auscultation: lungs clear to auscultation bilaterally Cardiovascular: Rate/Rhythm: regular rate and regular rhythm; not tachycardic Heart Sounds: normal S1 and normal S2; no murmur Extremities: no edema Gastrointestinal (Abdomen): Inspection/Auscultation: normal bowel sounds; abdomen not distended Percussion/Palpation: abdomen soft; abdomen nontender Neurologic: normal touch/pain/proprioception and moves all extremities; no focal motor deficits Psychiatric: Mood: + anxious mood Lymphatic: no cervical or axillary lymphadenopathy Results & Data Results & Data Vital Signs (Past 12 Hours) Vital Signs Temp Pulse Pulse Resp BP Pulse Ox O2 Del Method 03/26/24 12:04 36.7 C 75 18 136/75 95 Room Air 03/26/24 08:00 74 03/26/24 05:58 36.6 C 75 17 147/83 H 96 Room Air Laboratory Results Short CBC 03/26/24 Range/Units 06:30 WBC 1.71 L (4.8-10.8) K/ul Hgb 7.6 L (12.0-16.0) g/dl Hct 23.3 L (37.0-47.0) % Plt Count 123 L (130-400) K/uL BMP 03/26/24 06:30 Sodium 136 Potassium 4.4 Chloride 105 Carbon Dioxide 28 BUN 8 Creatinine 0.56 L Glucose 92 Calcium 8.7 Medications Administered Current Inpatient Medications Acetaminophen (Acetaminophen 325 Mg Tab) 650 mg PO Q4H PRN PRN Reason: Pain or Fever Stop: 04/21/24 19:33 Buspirone HCl (Buspirone 15 Mg Tab) 15 mg PO BID [facility] Stop: 04/21/24 20:59 Last Admin: 03/26/24 10:07 Dose: 15 mg Ergocalciferol (Ergocalciferol 1250 Mcg (50,000 Units) Cap) 1,250 mcg PO Q7D [facility] Stop: 04/27/24 16:01 Last Admin: 03/23/24 18:28 Dose: 1,250 mcg Folic Acid (Folic Acid 1 Mg Tab) 1 mg PO QAM [facility] Stop: 04/22/24 08:59 Last Admin: 03/26/24 10:07 Dose: 1 mg Potassium Chloride/Sodium Chloride (Normal Saline W/20 Meq Kcl) 20 meq in 1,000 mls @ 80 mls/hr IV .[id number] [facility]; Protocol Stop: 04/21/24 19:29 Last Admin: 03/26/24 10:04 Dose: 80 mls/hr Lorazepam 1 mg/ Syringe 1 mls @ 2 mls/min IV ONE PRN; Protocol PRN Reason: EtoH Withdrawal AWSS 6-10 Thiamine HCl 100 mg/ Syringe 10 mls @ 2 mls/min IV QAM [facility] Stop: 04/21/24 19:59 Last Admin: 03/26/24 10:06 Dose: 2 mls/min Lidocaine (Lidocaine 5% 1 Patch) 1 patch TD QAM [facility] Stop: 04/21/24 19:44 Last Admin: 03/26/24 10:07 Dose: 1 patch Lisinopril (Lisinopril 40 Mg Tab) 40 mg PO DAILY [facility] Stop: 04/22/24 08:59 Last Admin: 03/26/24 10:07 Dose: 40 mg Magnesium Hydroxide (Magnesium Hydroxide Susp 30 Ml Udc) 30 ml PO Q12H PRN PRN Reason: Constipation Stop: 04/21/24 19:33 Magnesium Oxide (Magnesium Oxide 400 Mg Tab) 400 mg PO BID [facility] Stop: 04/21/24 20:59 Last Admin: 03/26/24 10:07 Dose: 400 mg Metoprolol Tartrate (Metoprolol Tartrate 50 Mg Tab) 50 mg PO BID [facility] Stop: 04/21/24 20:59 Last Admin: 03/26/24 10:07 Dose: 50 mg Miscellaneous (Remove Lidoderm Patch) 1 each N/A DAILY@2100 [facility] Stop: 04/21/24 20:59 Last Admin: 03/25/24 21:47 Dose: 1 each Ondansetron HCl (Ondansetron Inj 2 Mg/Ml 2 Ml Vial) 4 mg IV Q6H PRN PRN Reason: Nausea Stop: 04/21/24 19:33 Pantoprazole Sodium (Pantoprazole 40 Mg Tab) 40 mg PO DAILY [facility] Stop: 04/22/24 08:59 Last Admin: 03/26/24 10:07 Dose: 40 mg Polyethylene Glycol (Polyethylene (Miralax) 17 Gm Pack) 17 gm PO DAILY PRN PRN Reason: Constipation Stop: 04/21/24 19:33 Sertraline HCl (Sertraline Hcl 100 Mg Tablet) 100 mg PO DAILY [facility] Stop: 04/22/24 08:59 Last Admin: 03/26/24 10:07 Dose: 100 mg
--- NOTE | 2024-03-26 18:21 | XRay Report ---
XR foot RT 2V CLINICAL HISTORY: Right foot pain and swelling following fall. Evaluate for fracture. COMPARISON: None FINDINGS: Alignment of the tarsometatarsal joints is anatomic. There is subtle cortical irregularity and deformity of the distal shaft of the right fifth metatarsal. This represents a minimally displac ed fracture. No additional fractures within the right foot are present. IMPRESSION: Subtle cortical irregularity and deformity of the distal shaft of the right fifth metatar dee dee. This is age-indeterminate but favors a subacute to acute minimally displaced fracture. This coul d be correlated with point tenderness. ACT 112: Negative or not required by law. Electronically signed by: Dion Javier M.D. 03/26/2024 6:19 PM
[2024-03-27 06:30] LABS: Hematocrit (blood only) 21.3 % (37.0-47.0); Hemoglobin 7.1 g/dl (12.0-16.0); Mean Corpuscular Hemoglobin 30.7 pg (25.0-34.0); Mean Corpuscular Hgb Conc 33.3 g/dL (32.0-36.0); Mean Corpuscular Volume 92.2 fL (80.0-100.0); Mean Platelet Volume 9.7 fL (9.4-12.4); Platelet Count 126 K/uL (130-400); RDW Coefficient of Variation 14.2 % (11.5-14.5); RDW Standard Deviation 47.9 fL (36.4-46.3); Red Blood Count 2.31 M/uL (4.20-5.40); White Blood Count 1.45 K/ul (4.8-10.8)
[2024-03-27 06:57] LABS: Calcium 8.6 mg/dl (8.6-10.3); Creatinine Clr Calc Pharmacy 73.1 ml/min; Est GFR (African American) 113.4 ml/min; Est GFR (Non-African American) 97.8 ml/min
[2024-03-27 06:58] LABS: Basophils # (auto) 0.01 K/uL (0.00-0.20); Basophils % (auto) 0.7 %; Eosinophils # (auto) 0.04 K/uL (0.00-0.50); Eosinophils % (auto) 2.8 %; Lymphocytes # (auto) 0.39 K/uL (1.20-3.40); Lymphocytes % (auto) 26.9 %; Monocytes # (auto) 0.17 K/uL (0.11-0.59); Monocytes % (auto) 11.7 %; Neutrophils # (auto) 0.84 K/uL (1.40-6.50); Neutrophils % (auto) 57.9 %; Polychromasia 1+
[2024-03-27] MEDS ORDERED: SODIUM CHLORIDE 0.9% 250 ML IV PRN (11:22)
--- NOTE | 2024-03-27 15:17 | Hospitalist Progress Note ---
Date of Service March 27, 2024 Assessment & Plan (1) Weakness generalized: (2) Frequent falls: (3) Hypokalemia: (4) Hypomagnesemia: (5) Hyponatremia: (6) Alcohol abuse: (7) Rectal cancer: Plan This is a 59-year-old female who has significant past medical history of HTN, r ectal cancer status post radiation and chemo however did not completely finish chemotherapy, iron deficiency anemia due to chronic blood loss, senile osteoporosis, history of compression fractures, chronic alcoholism, ataxia, chronic hyponatremia and anxiety who presents to ED secondary to lower extremity weakness and frequent falls. Generalized weakness Frequent falls Chronic Hyponatremia in setting of "beer potomania" Low urine and serum osm Has been receiving IVF NSS + 20meq KCL 80cc/hr Noted to have sodium of 127 on admission and has improved up to 133 as of this morning 8-24 Clinically much better Awaiting PT and OT evaluation-most likely she will need to go to rehab for short-term at least Remains medically stable Has had PT evaluation and recommended rehab Remains stable and denies any significant symptoms Denies any more abdominal or rectal pain Remains generally weak but no other significant symptoms Chronic Anemia: 2/2 iron def and chronic rectal bleeding. Pt did have a large bloody bm in ED. Monitor h/h closely. Willl consult GI while inpt, continue oral protonix White count is minimally low and ANC is mildly low at 0.94 Hemoglobin has been gradually dropping and it is 7.1 as of 03/27/2024 Will give 1 unit of blood transfusion Pancytopenia Likely secondary to cancer and radiation She has been getting any chemotherapy Bone marrow aplasia/myelodysplasia and other differential diagnosis Absolute neutrophil count is going down Will get peripheral blood smear and hematology consultation if counts are continuing to be low Known rectal Cancer: s/p XRT, did not complete chemo treatment due to side effects, Was suppose to undergo surgery but has not done this, CT shows Posttreatment stranding is seen in the rectum and perirectal fat. Appreciate GI input and recommendation Has had 1 episode of bleed per rectum in the emergency room Bowel has not moved since then Was advised to have an appointment with colorectal surgery Strongly advised to see the oncologist for further chemo Bowel has not moved yet No more bleeding since admission and hemoglobin remains stable Hemoglobin remains on the lower side at 7.4 but no evidence of bleeding per rectum No more bleeding per rectum has been having regular bowel movement and tolerating diet No rectal or abdominal pain Alcohol abuse: Educated on cessation, AWSS protocol with gabapentin taper, PRN lorazepam, IV thiamine and oral folate No signs and or symptoms of withdrawal Electrolyte abnormalities Has hypokalemia and hypomagnesemia Replaced and will monitor-electrolytes have been normalized Compression fx/Known osteoporosis: Vitamin D level has been low and will give vitamin D orally DVT ppx: SCDS PCP: Riya FULL CODE Dispo: admit to tele, likely to remain hospitalized until electrolyte derangements resolve, will need PT/OT to determine dispo Awaiting placement Admission and Anticipated Discharge Date Admission Date: March 22, 2024 Subjective 03/23/2024 The patient was seen and examined in medical telemetry unit She has been feeling better Denies any more dizziness at rest No more bloody bowel movement and denies any significant pain 03/24/2024 Patient was seen and examined in medical telemetry unit She has been feeling much better Denies any abdominal pain, nausea and or vomiting Has not had any bowel movement since admission She has not had any PT as of yet 03/25/2024 The patient was seen and examined in medical telemetry unit She has been stable in bed Has had physical therapy on first of this month and recommended rehab She has had bowel movement without any blood in it 03/26/2024 Patient was seen and examined in medical telemetry unit She has been stable and getting physical therapy and awaiting placement Had a bowel movement but no evidence of bleeding and does not have any abdominal pain 03/27/2024 The patient was seen and examined in medical telemetry unit She complains of pain in the right foot and the right foot x-ray did not show fracture of the fifth metatarsal head She denies any other symptoms and no more blood per rectum Review of Systems Review of Systems: All systems reviewed and are unremarkable except as noted below Physical Exam Physical Exam: Lying in bed without any acute distress Constitutional: + ill appearing and + thin Eyes: PERRL, conjunctivae normal, anicteric sclerae ENMT: external ear and nose normal, oropharynx normal Neck: trachea midline, no thyromegaly Respiratory: no respiratory distress Auscultation: lungs clear to auscultation bilaterally Cardiovascular: Rate/Rhythm: regular rate and regular rhythm; not tachycardic Heart Sounds: normal S1 and normal S2; no murmur Extremities: no edema Gastrointestinal (Abdomen): Inspection/Auscultation: normal bowel sounds; abdomen not distended Percussion/Palpation: abdomen soft; abdomen nontender Neurologic: normal touch/pain/proprioception and moves all extremities; no focal motor deficits Psychiatric: Mood: + anxious mood Lymphatic: no cervical or axillary lymphadenopathy Results & Data Results & Data Vital Signs (Past 12 Hours) Vital Signs Temp Pulse Pulse Resp BP BP Pulse Ox 03/27/24 15:00 75 03/27/24 14:26 36.8 C 72 16 135/82 97 03/27/24 14:25 36.8 C 72 16 135/82 97 03/27/24 13:26 36.7 C 74 16 126/75 96 03/27/24 12:56 37.0 C 75 16 136/85 98 03/27/24 12:41 36.9 C 79 16 128/79 96 03/27/24 12:23 36.7 C 73 16 124/76 99 03/27/24 11:41 36.8 C 83 18 114/70 96 03/27/24 11:00 75 03/27/24 08:29 36.9 C 82 18 144/79 H 95 03/27/24 08:00 Pulse Ox O2 Del Method O2 Del Method 03/27/24 15:00 03/27/24 14:26 03/27/24 14:25 03/27/24 13:26 03/27/24 12:56 03/27/24 12:41 03/27/24 12:23 03/27/24 11:41 Room Air 03/27/24 11:00 03/27/24 08:29 Room Air 03/27/24 08:00 98 Room Air Laboratory Results Short CBC 03/27/24 Range/Units 05:40 WBC 1.45 L (4.8-10.8) K/ul Hgb 7.1 L (12.0-16.0) g/dl Hct 21.3 L (37.0-47.0) % Plt Count 126 L (130-400) K/uL BMP 03/27/24 05:40 Sodium 135 L Potassium 4.0 Chloride 104 Carbon Dioxide 26 BUN 11 Creatinine 0.61 Glucose 91 Calcium 8.6 Medications Administered Current Inpatient Medications Acetaminophen (Acetaminophen 325 Mg Tab) 650 mg PO Q4H PRN PRN Reason: Pain or Fever Stop: 04/21/24 19:33 Buspirone HCl (Buspirone 15 Mg Tab) 15 mg PO BID [facility] Stop: 04/21/24 20:59 Last Admin: 03/27/24 08:00 Dose: 15 mg Ergocalciferol (Ergocalciferol 1250 Mcg (50,000 Units) Cap) 1,250 mcg PO Q7D [facility] Stop: 04/27/24 16:01 Last Admin: 03/23/24 18:28 Dose: 1,250 mcg Folic Acid (Folic Acid 1 Mg Tab) 1 mg PO QAM [facility] Stop: 04/22/24 08:59 Last Admin: 03/27/24 08:00 Dose: 1 mg Potassium Chloride/Sodium Chloride (Normal Saline W/20 Meq Kcl) 20 meq in 1,000 mls @ 80 mls/hr IV .[id number] [facility]; Protocol Stop: 04/21/24 19:29 Last Admin: 03/27/24 10:46 Dose: 80 mls/hr Lorazepam 1 mg/ Syringe 1 mls @ 2 mls/min IV ONE PRN; Protocol PRN Reason: EtoH Withdrawal AWSS 6-10 Thiamine HCl 100 mg/ Syringe 10 mls @ 2 mls/min IV QAM [facility] Stop: 04/21/24 19:59 Last Admin: 03/27/24 08:00 Dose: 2 mls/min Sodium Chloride (Nss) 250 mls @ 15 mls/hr IV .[id number] PRN PRN Reason: For Transfusion Duration Stop: 03/27/24 21:22 Lidocaine (Lidocaine 5% 1 Patch) [facility] [place] Stop: 04/21/24 19:44 Last Admin: 03/27/24 07:59 Dose: 1 patch Lisinopril (Lisinopril 40 Mg Tab) 40 mg PO DAILY [facility] Stop: 04/22/24 08:59 Last Admin: 03/27/24 08:00 Dose: 40 mg Magnesium Hydroxide (Magnesium Hydroxide Susp 30 Ml Udc) 30 ml PO Q12H PRN PRN Reason: Constipation Stop: 04/21/24 19:33 Magnesium Oxide (Magnesium Oxide 400 Mg Tab) 400 mg PO BID [facility] Stop: 04/21/24 20:59 Last Admin: 03/27/24 08:00 Dose: 400 mg Metoprolol Tartrate (Metoprolol Tartrate 50 Mg Tab) 50 mg PO BID [facility] Stop: 04/21/24 20:59 Last Admin: 03/27/24 08:00 Dose: 50 mg Miscellaneous (Remove Lidoderm Patch) 1 each N/A DAILY@2100 [facility] Stop: 04/21/24 20:59 Last Admin: 03/26/24 21:44 Dose: 1 each Ondansetron HCl (Ondansetron Inj 2 Mg/Ml 2 Ml Vial) 4 mg IV Q6H PRN PRN Reason: Nausea Stop: 04/21/24 19:33 Pantoprazole Sodium (Pantoprazole 40 Mg Tab) 40 mg PO DAILY [facility] Stop: 04/22/24 08:59 Last Admin: 03/27/24 07:59 Dose: 40 mg Polyethylene Glycol (Polyethylene (Miralax) 17 Gm Pack) 17 gm PO DAILY PRN PRN Reason: Constipation Stop: 04/21/24 19:33 Sertraline HCl (Sertraline Hcl 100 Mg Tablet) 100 mg PO DAILY [facility] Stop: 04/22/24 08:59 Last Admin: 03/27/24 07:59 Dose: 100 mg
--- NOTE | 2024-03-27 16:20 | Orthopedic Consultation ---
Date of Consultation March 27, 2024 Assessment & Plan (1) Right foot pain: Findings discussed. She is able to ambulate with a walker weightbearing as tolerated. I would recommend comfort measures and follow-up as an outpatient. Elevate ice Tylenol for pain if appropriate. Postop shoe. Walker. Follow-up in my office 1 to 2 weeks status post discharge for further evaluation and treatment. History of Present Illness Attending Physician: Mihai Ryan MD History of Present Illness Amanda is 59 years old. She is admitted for other medical reasons. She fell about 2 weeks ago injuring her right foot. She has had pain and swelling ever since.There is no prior history of right foot injuries. She has not had it treated previously. Allergies Allergy/AdvReac Type Severity Reaction Status Date / Time No Known Allergies Allergy Verified 03/22/24 17:36 Home Medications Medication Instructions Recorded Confirmed Type buspirone 15 mg tablet 15 mg PO BID 06/04/23 03/22/24 History folic acid 1 mg tablet 1 mg PO DAILY 06/04/23 03/22/24 History lisinopril 40 mg tablet 40 mg PO DAILY 06/04/23 03/22/24 History metoprolol tartrate 50 mg tablet 50 mg PO BID 06/04/23 03/22/24 History pantoprazole 40 mg tablet,delayed 40 mg PO DAILY 06/04/23 03/22/24 History release sertraline 100 mg tablet 100 mg PO DAILY 06/04/23 03/22/24 History magnesium oxide 400 mg (241.3 mg 400 mg PO QAM #30 tabs 06/09/23 03/22/24 Rx magnesium) tablet polyethylene glycol 3350 17 gram 17 g PO DAILY PRN constipation #0 06/09/23 03/22/24 Rx oral powder packet (Miralax) ea Patient History Medical History History of peptic ulcer Feeling suicidal Depression Anxiety Fracture of lumbar spine Surgical History H/O colonoscopy H/O esophagogastroduodenoscopy S/P D&C (status post dilation and curettage) Family History Family/Other Cancer brain and lung from separate female cousins Social History Smoking Status: Former smoker Tobacco Type: Cigarettes Second Hand Exposure: No; Do You Dip or Chew Tobacco: No; Hx Alcohol Use: Yes Alcohol type: beer Alcohol Intake Frequency: 4 or More x per/Week Alcohol Intake Frequency Comment: 6-9 16oz beer/day Hx Substance Use: No Preferred Language: Tongan Communication Ability: Effective Visual Impairment: No Limitations Hearing Ability: Normal Medical Support Assistant Required: No Beliefs That Will Affect Care: None Current Living Situation: Spouse Current Living Situation Comment: Home current occupational status: unemployed Other Information That Helps Us Care for You: No Feels Safe at Home: Yes Safety Concerns: Feels Safe At This Time during the past year weight has: remained stable Assistive Devices: Glasses and Walker Physical Exam Physical Exam: DP and PT pulses are trace. She has full movement of the toes and ankle as well as subtalar joint. Her strength is 5 out of 5 without significant discomfort. There is swelling of the central forefoot with tenderness mostly over the first second third and fourth distal metatarsal area. There is not significant pain with movement of the metatarsophalangeal joints. The fifth metatarsal is painful but less so. DP and PT pulses are trace. Sensation intact. There is bruising on the bottom of the foot. Skin intact. Results & Data Vital Signs (Past 12 Hours) Vital Signs Temp Pulse Pulse Resp BP BP Pulse Ox 03/27/24 15:21 36.6 C 75 16 144/66 H 97 03/27/24 15:00 75 03/27/24 14:26 36.8 C 72 16 135/82 97 03/27/24 14:25 36.8 C 72 16 135/82 97 03/27/24 13:26 36.7 C 74 16 126/75 96 03/27/24 12:56 37.0 C 75 16 136/85 98 03/27/24 12:41 36.9 C 79 16 128/79 96 03/27/24 12:23 36.7 C 73 16 124/76 99 03/27/24 11:41 36.8 C 83 18 114/70 96 03/27/24 11:00 75 03/27/24 08:29 36.9 C 82 18 144/79 H 95 03/27/24 08:00 Pulse Ox O2 Del Method O2 Del Method 03/27/24 15:21 03/27/24 15:00 03/27/24 14:26 03/27/24 14:25 03/27/24 13:26 03/27/24 12:56 03/27/24 12:41 03/27/24 12:23 03/27/24 11:41 Room Air 03/27/24 11:00 03/27/24 08:29 Room Air 03/27/24 08:00 98 Room Air Laboratory Results 2 view radiograph of the right foot shows no dislocations or arthritis. There is a suggestion of a nondisplaced fracture involving the fifth metatarsal neck. Report noted.
[2024-03-28] MEDS: LABETALOL HCL IV 5 MG/ML 20ML IV STA (05:08)
[2024-03-28 06:30] LABS: Basophils # (auto) 0.02 K/uL (0.00-0.20); Eosinophils # (auto) 0.02 K/uL (0.00-0.50); Hematocrit (blood only) 28.1 % (37.0-47.0); Hemoglobin 9.6 g/dl (12.0-16.0); Lymphocytes # (auto) 0.46 K/uL (1.20-3.40); Lymphocytes % (auto) 23.2 %; Mean Corpuscular Hemoglobin 30.4 pg (25.0-34.0); Mean Corpuscular Hgb Conc 34.2 g/dL (32.0-36.0); Mean Corpuscular Volume 88.9 fL (80.0-100.0); Mean Platelet Volume 9.4 fL (9.4-12.4); Monocytes # (auto) 0.29 K/uL (0.11-0.59); Monocytes % (auto) 14.6 %; Neutrophils # (auto) 1.19 K/uL (1.40-6.50); Neutrophils % (auto) 60.2 %; Platelet Count 131 K/uL (130-400); RDW Coefficient of Variation 15.1 % (11.5-14.5); RDW Standard Deviation 49.3 fL (36.4-46.3); Red Blood Count 3.16 M/uL (4.20-5.40); White Blood Count 1.98 K/ul (4.8-10.8)
[2024-03-28 06:41] LABS: BUN Creatinine Ratio 13.8 (10-20); Calcium 8.8 mg/dl (8.6-10.3); Creatinine Clr Calc Pharmacy 68.6 ml/min; Est GFR (African American) 111.1 ml/min; Est GFR (Non-African American) 95.8 ml/min; Potassium 3.5 mmol/L (3.5-5.1)
--- NOTE | 2024-03-28 14:05 | Hospitalist Progress Note ---
Date of Service March 28, 2024 Assessment & Plan (1) Weakness generalized: (2) Frequent falls: (3) Hypokalemia: (4) Hypomagnesemia: (5) Hyponatremia: (6) Alcohol abuse: (7) Rectal cancer: Plan This is a 59-year-old female who has significant past medical history of HTN, r ectal cancer status post radiation and chemo however did not completely finish chemotherapy, iron deficiency anemia due to chronic blood loss, senile osteoporosis, history of compression fractures, chronic alcoholism, ataxia, chronic hyponatremia and anxiety who presents to ED secondary to lower extremity weakness and frequent falls. Generalized weakness Frequent falls Chronic Hyponatremia in setting of "beer potomania" Low urine and serum osm Has been receiving IVF NSS + 20meq KCL 80cc/hr Noted to have sodium of 127 on admission and has improved up to 133 as of this morning 8-24 Clinically much better Awaiting PT and OT evaluation-most likely she will need to go to rehab for short-term at least Remains medically stable Has had PT evaluation and recommended rehab Remains stable and denies any significant symptoms Denies any more abdominal or rectal pain Remains generally weak but no other significant symptoms Clinically stable and feeling a little better Sodium level has been normalized Fracture of the right fifth metatarsal head Appreciate Ortho input and recommendation Will wear a postop boot which has been provided and weightbearing as tolerated Will need to be seen by Ortho in about 1 to 2 weeks following discharge Chronic Anemia: 2/2 iron def and chronic rectal bleeding. Pt did have a large bloody bm in ED. Monitor h/h closely. Willl consult GI while inpt, continue oral protonix White count is minimally low and ANC is mildly low at 0.94 Hemoglobin has been gradually dropping and it is 7.1 as of 03/27/2024 Will give 1 unit of blood transfusion Hemoglobin went up to 9.6 with improvement of white count and also neutrophil count Pancytopenia Likely secondary to cancer and radiation She has been getting any chemotherapy Bone marrow aplasia/myelodysplasia and other differential diagnosis Absolute neutrophil count is going down Will get peripheral blood smear and hematology consultation if counts are continuing to be low Peripheral blood smear is pending With blood transfusion of 1 unit total white count and also absolute neutrophil count are better Known rectal Cancer: s/p XRT, did not complete chemo treatment due to side effects, Was suppose to undergo surgery but has not done this, CT shows Posttreatment stranding is seen in the rectum and perirectal fat. Appreciate GI input and recommendation Has had 1 episode of bleed per rectum in the emergency room Bowel has not moved since then Was advised to have an appointment with colorectal surgery Strongly advised to see the oncologist for further chemo Bowel has not moved yet No more bleeding since admission and hemoglobin remains stable Hemoglobin remains on the lower side at 7.4 but no evidence of bleeding per rectum No more bleeding per rectum has been having regular bowel movement and tolerating diet No rectal or abdominal pain Alcohol abuse: Educated on cessation, AWSS protocol with gabapentin taper, PRN lorazepam, IV thiamine and oral folate No signs and or symptoms of withdrawal Electrolyte abnormalities Has hypokalemia and hypomagnesemia Replaced and will monitor-electrolytes have been normalized Compression fx/Known osteoporosis: Vitamin D level has been low and will give vitamin D orally DVT ppx: SCDS PCP: Riya FULL CODE Dispo: admit to tele, likely to remain hospitalized until electrolyte derangements resolve, will need PT/OT to determine dispo Awaiting placement Admission and Anticipated Discharge Date Admission Date: March 22, 2024 Subjective 03/23/2024 The patient was seen and examined in medical telemetry unit She has been feeling better Denies any more dizziness at rest No more bloody bowel movement and denies any significant pain 03/24/2024 Patient was seen and examined in medical telemetry unit She has been feeling much better Denies any abdominal pain, nausea and or vomiting Has not had any bowel movement since admission She has not had any PT as of yet 03/25/2024 The patient was seen and examined in medical telemetry unit She has been stable in bed Has had physical therapy on first of this month and recommended rehab She has had bowel movement without any blood in it 03/26/2024 Patient was seen and examined in medical telemetry unit She has been stable and getting physical therapy and awaiting placement Had a bowel movement but no evidence of bleeding and does not have any abdominal pain 03/27/2024 The patient was seen and examined in medical telemetry unit She complains of pain in the right foot and the right foot x-ray did not show fracture of the fifth metatarsal head She denies any other symptoms and no more blood per rectum 03/28/2024 The patient was seen and examined medical telemetry unit She has been feeling much better following blood transfusion Had pain in the right foot seems to be stable without any pressure or movement She denies any other significant symptoms Review of Systems Review of Systems: All systems reviewed and are unremarkable except as noted below Physical Exam Physical Exam: Lying in bed without any acute distress Constitutional: + thin; not ill appearing Eyes: PERRL, conjunctivae normal, anicteric sclerae ENMT: external ear and nose normal, oropharynx normal Neck: trachea midline, no thyromegaly Respiratory: no respiratory distress Auscultation: lungs clear to auscultation bilaterally Cardiovascular: Rate/Rhythm: regular rate and regular rhythm; not tachycardic Heart Sounds: normal S1 and normal S2; no murmur Extremities: no edema Gastrointestinal (Abdomen): Inspection/Auscultation: normal bowel sounds; abdomen not distended Percussion/Palpation: abdomen soft; abdomen nontender Musculoskeletal: Right foot tenderness and bruising involving the dorsum and also the plantar surface Neurologic: normal touch/pain/proprioception and moves all extremities; no focal motor deficits Psychiatric: Mood: + anxious mood Lymphatic: no cervical or axillary lymphadenopathy Results & Data Results & Data Vital Signs (Past 12 Hours) Vital Signs Temp Pulse Pulse Resp BP BP BP 03/28/24 11:48 36.5 C 88 16 110/71 03/28/24 08:12 86 03/28/24 07:57 37.2 C 82 18 124/83 03/28/24 05:29 84 148/77 H 03/28/24 03:15 36.7 C 68 18 182/98 H Pulse Ox O2 Del Method 03/28/24 11:48 95 Room Air 03/28/24 08:12 03/28/24 07:57 95 Room Air 03/28/24 05:29 03/28/24 03:15 97 Room Air Laboratory Results Short CBC 03/28/24 Range/Units 06:01 WBC 1.98 L (4.8-10.8) K/ul Hgb 9.6 L (12.0-16.0) g/dl Hct 28.1 L (37.0-47.0) % Plt Count 131 (130-400) K/uL BMP 03/28/24 06:01 Sodium 136 Potassium 3.5 Chloride 104 Carbon Dioxide 25 BUN 9 Creatinine 0.65 Glucose 96 Calcium 8.8 Medications Administered Current Inpatient Medications Acetaminophen (Acetaminophen 325 Mg Tab) 650 mg PO Q4H PRN PRN Reason: Pain or Fever Stop: 04/21/24 19:33 Buspirone HCl (Buspirone 15 Mg Tab) 15 mg PO BID [facility] Stop: 04/21/24 20:59 Last Admin: 03/28/24 09:05 Dose: 15 mg Ergocalciferol (Ergocalciferol 1250 Mcg (50,000 Units) Cap) 1,250 mcg PO Q7D [facility] Stop: 04/27/24 16:01 Last Admin: 03/23/24 18:28 Dose: 1,250 mcg Folic Acid (Folic Acid 1 Mg Tab) 1 mg PO QAM [facility] Stop: 04/22/24 08:59 Last Admin: 03/28/24 09:05 Dose: 1 mg Potassium Chloride/Sodium Chloride (Normal Saline W/20 Meq Kcl) 20 meq in 1,000 mls @ 80 mls/hr IV .[id number] [facility]; Protocol Stop: 04/21/24 19:29 Last Admin: 03/28/24 12:26 Dose: 80 mls/hr Lorazepam 1 mg/ Syringe 1 mls @ 2 mls/min IV ONE PRN; Protocol PRN Reason: EtoH Withdrawal AWSS 6-10 Thiamine HCl 100 mg/ Syringe 10 mls @ 2 mls/min IV QAM [facility] Stop: 04/21/24 19:59 Last Admin: 03/28/24 09:04 Dose: 2 mls/min Lidocaine (Lidocaine 5% 1 Patch) 1 patch TD QAM [facility] Stop: 04/21/24 19:44 Last Admin: 03/28/24 09:04 Dose: 1 patch Lisinopril (Lisinopril 40 Mg Tab) 40 mg PO DAILY [facility] Stop: 04/22/24 08:59 Last Admin: 03/28/24 09:05 Dose: 40 mg Magnesium Hydroxide (Magnesium Hydroxide Susp 30 Ml Udc) 30 ml PO Q12H PRN PRN Reason: Constipation Stop: 04/21/24 19:33 Magnesium Oxide (Magnesium Oxide 400 Mg Tab) 400 mg PO BID [facility] Stop: 04/21/24 20:59 Last Admin: 03/28/24 09:05 Dose: 400 mg Metoprolol Tartrate (Metoprolol Tartrate 50 Mg Tab) 50 mg PO BID [facility] Stop: 04/21/24 20:59 Last Admin: 03/28/24 09:05 Dose: 50 mg Miscellaneous (Remove Lidoderm Patch) 1 each N/A DAILY@2100 [facility] Stop: 04/21/24 20:59 Last Admin: 03/27/24 19:51 Dose: 1 each Ondansetron HCl (Ondansetron Inj 2 Mg/Ml 2 Ml Vial) 4 mg IV Q6H PRN PRN Reason: Nausea Stop: 04/21/24 19:33 Pantoprazole Sodium (Pantoprazole 40 Mg Tab) 40 mg PO DAILY [facility] Stop: 04/22/24 08:59 Last Admin: 03/28/24 09:05 Dose: 40 mg Polyethylene Glycol (Polyethylene (Miralax) 17 Gm Pack) 17 gm PO DAILY PRN PRN Reason: Constipation Stop: 04/21/24 19:33 Sertraline HCl (Sertraline Hcl 100 Mg Tablet) 100 mg PO DAILY [facility] Stop: 04/22/24 08:59 Last Admin: 03/28/24 09:05 Dose: 100 mg
--- NOTE | 2024-03-28 15:43 | Orthopedic Progress Note ---
Date of Service March 28, 2024 Assessment & Plan (1) Nondisplaced fracture of fifth right metatarsal bone: Plan: The patient was educated regarding today's findings. She should keep the shoe on when out of bed. She may be weightbearing as tolerated with her walker. Continue ambulation as strength dictates. Follow-up in the office for reexamination on April 09 with Fran GUTIERREZ. Continue with ice and elevation for pain and edema control. Continue use of her Tylenol every 6 hours as needed for discomfort. Admission and Anticipated Discharge Date Admission Date: March 22, 2024 Subjective This 59-year-old female is seen today in her room. She is currently working with occupational therapy. She has her postop shoe in place on the right foot. She states it is comfortable and helping her significantly. She has been able to walk with her walker. No new complaints. She denies any numbness or tingling in the foot. Physical Exam Physical Exam: General: Frail, middle-aged female, in no acute distress. Sitting in the chair. Alert and oriented. Doing her occupational therapy exercises. Skin: Warm dry with fair turgor. Right foot has the shoe and sock in place and was not assessed so as to avoid interrupting her therapy Musculoskeletal: The patient has intact motor function of her right knee, ankle, and toes. She has been ambulatory with the occupational therapist. Neurologic: Gross sensation is intact across the foot. Results & Data Vital Signs (Past 12 Hours) Vital Signs Temp Pulse Pulse Resp BP BP BP 03/28/24 14:42 83 03/28/24 11:48 36.5 C 88 16 110/71 03/28/24 08:12 86 03/28/24 07:57 37.2 C 82 18 124/83 03/28/24 05:29 84 148/77 H Pulse Ox O2 Del Method 03/28/24 14:42 03/28/24 11:48 95 Room Air 03/28/24 08:12 03/28/24 07:57 95 Room Air 03/28/24 05:29
[2024-03-29] MEDS: LABETALOL HCL IV 5 MG/ML 20ML IV STA (02:50)
[2024-03-29 06:45] LABS: Hemoglobin 8.8 g/dl (12.0-16.0); Mean Corpuscular Hemoglobin 30.4 pg (25.0-34.0); Mean Corpuscular Hgb Conc 33.8 g/dL (32.0-36.0); Mean Platelet Volume 9.7 fL (9.4-12.4); Platelet Count 145 K/uL (130-400); RDW Coefficient of Variation 15.7 % (11.5-14.5); RDW Standard Deviation 51.5 fL (36.4-46.3); Red Blood Count 2.89 M/uL (4.20-5.40); White Blood Count 1.79 K/ul (4.8-10.8)
[2024-03-29 07:31] LABS: Basophils # (auto) 0.01 K/uL (0.00-0.20); Basophils % (auto) 0.6 %; Eosinophils # (auto) 0.03 K/uL (0.00-0.50); Eosinophils % (auto) 1.7 %; Lymphocytes # (auto) 0.51 K/uL (1.20-3.40); Lymphocytes % (auto) 28.5 %; Monocytes # (auto) 0.33 K/uL (0.11-0.59); Monocytes % (auto) 18.4 %; Neutrophils # (auto) 0.91 K/uL (1.40-6.50); Neutrophils % (auto) 50.8 %; RBC Morphology Unremarkable
--- NOTE | 2024-03-29 17:21 | Hospitalist Progress Note ---
Date of Service March 29, 2024 Assessment & Plan (1) Weakness generalized: (2) Frequent falls: (3) Hypokalemia: (4) Hypomagnesemia: (5) Hyponatremia: (6) Alcohol abuse: (7) Rectal cancer: Plan This is a 59-year-old female who has significant past medical history of HTN, r ectal cancer status post radiation and chemo however did not completely finish chemotherapy, iron deficiency anemia due to chronic blood loss, senile osteoporosis, history of compression fractures, chronic alcoholism, ataxia, chronic hyponatremia and anxiety who presents to ED secondary to lower extremity weakness and frequent falls. Generalized weakness Frequent falls Chronic Hyponatremia in setting of "beer potomania" Low urine and serum osm Received IV fluids Sodium improved to 136 Monitor sodium levels Continue PT OT Discharge to rehab facility when accepted Nondisplaced fracture of fifth right metatarsal bone Appreciate Ortho input and recommendation Weightbearing as tolerated with walker Will wear a postop boot with activity Pain control Needs follow-up with orthopedics on discharge Chronic Anemia: 2/2 iron def and chronic rectal bleeding Pancytopenia: Likely due to marrow suppression from alcohol use, rectal cancer contributing as well Pt did have a large bloody bm in ED Rectal bleed likely secondary to rectal cancer, also hemorrhoid --CT ABD:Posttreatment stranding is seen in the rectum and perirectal fat. No conspicuous rectal mass or metastatic disease. --S/P 1 unit PRBCs --No myelodysplasia on peripheral smear --Normal vitamin B12 levels, normal iron, ferritin levels --Check folate levels -- Gastroenterology consulted -- Monitor H&H and transfuse as needed --Continue Protonix -- Needs follow-up with oncology and colorectal surgery as outpatient Pancytopenia Likely secondary to cancer and radiation, alcohol abuse Received chemotherapy in the past, currently plans to discuss with oncology again to resume chemotherapy Monitor CBC Rectal Cancer: s/p XRT, did not complete chemo treatment due to side effects, Was suppose to undergo surgery but has not done this, CT shows Posttreatment stranding is seen in the rectum and perirectal fat. Appreciate GI input and recommendation Needs follow-up with colorectal surgery and oncology on discharge Denies any rectal pain currently Monitor CBC Alcohol abuse: Educated on cessation AWSS protocol Completed gabapentin taper course Currently no signs of withdrawal Continue thiamine, folic acid Electrolyte abnormalities Hypokalemia and hypomagnesemia Monitor and replace electrolytes as needed Compression fx/Known osteoporosis: Vitamin D level has been low Started on vitamin D supplements DVT Px: SCDs Re: Rectal bleed CODE STATUS FULL CODE Disposition Needs rehab Case management to help with discharge planning Admission and Anticipated Discharge Date Admission Date: March 22, 2024 Subjective Patient is seen and examined at bedside States having intermittent right foot pain Also reports minimal dark-colored rectal bleed No other complaints Denies any chest pain, dyspnea, nausea, vomiting, abdominal pain Waiting for rehab placement Review of Systems Review of Systems: All systems reviewed & are unremarkable except as noted in Subjective Physical Exam Physical Exam: Physical Exam: Vitals signs as noted above General Appearance: Chronically ill-appearing, thin, no apparent distress Head: normocephalic, Atraumatic Eyes: normal inspection, EOMI Neck: supple, Trachea midline Respiratory/Chest: Normal breath sounds, CTA,+Chemo port, No accessory muscle use Cardiovascular: S1, S2, No murmur Abdomen/GI:Soft, Non tender, Bowel sounds present Extremities/Musculoskeletal:normal inspection, no edema Neurologic/Psych:AAOX3, grossly no focal neurological deficits Skin: normal color, warm Results & Data Results & Data Vital Signs (Past 12 Hours) Vital Signs Temp Pulse Pulse Resp BP Pulse Ox O2 Del Method 03/29/24 16:02 36.6 C 66 17 183/91 H 96 Room Air 03/29/24 15:36 82 03/29/24 11:38 36.7 C 79 17 128/77 97 Room Air 03/29/24 08:26 36.9 C 69 17 174/93 H 98 Room Air 03/29/24 07:15 76 Laboratory Results Short CBC 03/29/24 Range/Units 05:36 WBC 1.79 L (4.8-10.8) K/ul Hgb 8.8 L (12.0-16.0) g/dl Hct 26.0 L (37.0-47.0) % Plt Count 145 (130-400) K/uL
[2024-03-29] MEDS: amLODIPine BESYLATE 5 MG TAB PO ONE (18:03)
[2024-03-30 06:18] LABS: Basophils # (auto) 0.02 K/uL (0.00-0.20); Basophils % (auto) 0.9 %; Eosinophils # (auto) 0.05 K/uL (0.00-0.50); Eosinophils % (auto) 2.4 %; Hematocrit (blood only) 26.4 % (37.0-47.0); Hemoglobin 8.8 g/dl (12.0-16.0); Immature Granulocytes # (auto) 0.01 K/uL (0.01-0.20); Immature Granulocytes % (auto) 0.5 %; Lymphocytes # (auto) 0.58 K/uL (1.20-3.40); Lymphocytes % (auto) 27.4 %; Mean Corpuscular Hemoglobin 30.1 pg (25.0-34.0); Mean Corpuscular Hgb Conc 33.3 g/dL (32.0-36.0); Mean Corpuscular Volume 90.4 fL (80.0-100.0); Mean Platelet Volume 9.9 fL (9.4-12.4); Monocytes # (auto) 0.41 K/uL (0.11-0.59); Monocytes % (auto) 19.3 %; Neutrophils # (auto) 1.05 K/uL (1.40-6.50); Neutrophils % (auto) 49.5 %; Platelet Count 160 K/uL (130-400); RDW Coefficient of Variation 15.4 % (11.5-14.5); RDW Standard Deviation 50.6 fL (36.4-46.3); Red Blood Count 2.92 M/uL (4.20-5.40); White Blood Count 2.12 K/ul (4.8-10.8)
[2024-03-30 06:32] LABS: BUN Creatinine Ratio 17.5 (10-20); Calcium 8.9 mg/dl (8.6-10.3); Creatinine Clr Calc Pharmacy 70.8 ml/min; Est GFR (African American) 112.2 ml/min; Est GFR (Non-African American) 96.8 ml/min; Potassium 3.5 mmol/L (3.5-5.1)
[2024-03-30] MEDS: amLODIPine BESYLATE 5 MG TAB PO SCH (11:04)
--- NOTE | 2024-03-30 14:18 | Hospitalist Progress Note ---
Date of Service March 30, 2024 Assessment & Plan (1) Weakness generalized: (2) Frequent falls: (3) Hypokalemia: (4) Hypomagnesemia: (5) Hyponatremia: (6) Alcohol abuse: (7) Rectal cancer: Plan This is a 59-year-old female who has significant past medical history of HTN, r ectal cancer status post radiation and chemo however did not completely finish chemotherapy, iron deficiency anemia due to chronic blood loss, senile osteoporosis, history of compression fractures, chronic alcoholism, ataxia, chronic hyponatremia and anxiety who presents to ED secondary to lower extremity weakness and frequent falls. Generalized weakness Frequent falls Chronic Hyponatremia in setting of "beer potomania" Low urine and serum osm Received IV fluids Sodium improved to 137 Monitor sodium levels Continue PT OT Waiting for rehab placement Nondisplaced fracture of fifth right metatarsal bone Appreciate Ortho input and recommendation Weightbearing as tolerated with walker Will wear a postop boot with activity Pain control Needs follow-up with orthopedics on discharge Rehab as able Chronic Anemia: 2/2 iron def and chronic rectal bleeding Pancytopenia: Likely due to marrow suppression from alcohol use, rectal cancer contributing as well Pt did have a large bloody bm in ED Rectal bleed likely secondary to rectal cancer, also hemorrhoid --CT ABD:Posttreatment stranding is seen in the rectum and perirectal fat. No conspicuous rectal mass or metastatic disease. --S/P 1 unit PRBCs --No myelodysplasia on peripheral smear --Normal vitamin B12 levels, normal iron, ferritin levels, normal folate levels -- Gastroenterology consulted -- Monitor H&H and transfuse as needed --Continue Protonix -- Needs follow-up with oncology and colorectal surgery as outpatient -- Hemoglobin stable Pancytopenia Likely secondary to cancer and radiation, alcohol abuse Received chemotherapy in the past, currently plans to discuss with oncology again to resume chemotherapy Monitor CBC Rectal Cancer: s/p XRT, did not complete chemo treatment due to side effects, Was suppose to undergo surgery but has not done this, CT shows Posttreatment stranding is seen in the rectum and perirectal fat. Appreciate GI input and recommendation Needs follow-up with colorectal surgery and oncology on discharge Denies any rectal pain currently Monitor CBC Alcohol abuse: Educated on cessation AWSS protocol Completed gabapentin taper course Currently no signs of withdrawal Continue thiamine, folic acid Counseled to quit alcohol use Electrolyte abnormalities Hypokalemia and hypomagnesemia Monitor and replace electrolytes as needed Compression fx/Known osteoporosis: Vitamin D level has been low Started on vitamin D supplements DVT Px: SCDs Re: Rectal bleed CODE STATUS FULL CODE Disposition Rehab when accepted Case management to help with discharge planning Admission and Anticipated Discharge Date Admission Date: March 22, 2024 Subjective Patient is seen and examined at bedside No rectal bleed today Still has minimal right foot pain No other complaints today Denies any chest pain, dyspnea, nausea, vomiting, abdominal pain Waiting for rehab placement Review of Systems Review of Systems: All systems reviewed & are unremarkable except as noted in Subjective Physical Exam Physical Exam: Physical Exam: Vitals signs as noted above General Appearance: Chronically ill-appearing, thin, no apparent distress Head: normocephalic, Atraumatic Eyes: normal inspection, EOMI Neck: supple, Trachea midline Respiratory/Chest: Normal breath sounds, CTA,+Chemo port, No accessory muscle use Cardiovascular: S1, S2, No murmur Abdomen/GI:Soft, Non tender, Bowel sounds present Extremities/Musculoskeletal:normal inspection, no edema Neurologic/Psych:AAOX3, grossly no focal neurological deficits Skin: normal color, warm Results & Data Results & Data Vital Signs (Past 12 Hours) Vital Signs Temp Pulse Pulse Resp BP BP Pulse Ox 03/30/24 13:00 82 03/30/24 11:34 36.8 C 77 20 122/77 95 03/30/24 08:47 36.7 C 73 18 178/90 H 97 03/30/24 07:50 03/30/24 07:00 71 03/30/24 03:53 36.8 C 84 18 157/60 H 94 O2 Del Method O2 Del Method 03/30/24 13:00 03/30/24 11:34 Room Air 03/30/24 08:47 Room Air 03/30/24 07:50 Room Air 03/30/24 07:00 03/30/24 03:53 Room Air Laboratory Results Short CBC 03/30/24 Range/Units 05:34 WBC 2.12 L (4.8-10.8) K/ul Hgb 8.8 L (12.0-16.0) g/dl Hct 26.4 L (37.0-47.0) % Plt Count 160 (130-400) K/uL BMP 08/09/24 05:34 Sodium 137 Potassium 3.5 Chloride 105 Carbon Dioxide 25 BUN 11 Creatinine 0.63 Glucose 91 Calcium 8.9
[2024-03-31 06:29] LABS: Basophils # (auto) 0.02 K/uL (0.00-0.20); Basophils % (auto) 0.9 %; Eosinophils # (auto) 0.04 K/uL (0.00-0.50); Eosinophils % (auto) 1.7 %; Hematocrit (blood only) 28.2 % (37.0-47.0); Hemoglobin 9.1 g/dl (12.0-16.0); Immature Granulocytes # (auto) 0.01 K/uL (0.01-0.20); Immature Granulocytes % (auto) 0.4 %; Lymphocytes # (auto) 0.61 K/uL (1.20-3.40); Mean Corpuscular Hemoglobin 29.7 pg (25.0-34.0); Mean Corpuscular Hgb Conc 32.3 g/dL (32.0-36.0); Mean Corpuscular Volume 92.2 fL (80.0-100.0); Mean Platelet Volume 10.1 fL (9.4-12.4); Monocytes # (auto) 0.39 K/uL (0.11-0.59); Monocytes % (auto) 16.6 %; Neutrophils # (auto) 1.28 K/uL (1.40-6.50); Neutrophils % (auto) 54.4 %; Platelet Count 187 K/uL (130-400); RDW Coefficient of Variation 15.1 % (11.5-14.5); RDW Standard Deviation 50.4 fL (36.4-46.3); Red Blood Count 3.06 M/uL (4.20-5.40); White Blood Count 2.35 K/ul (4.8-10.8)
[2024-03-31 06:37] LABS: BUN Creatinine Ratio 21.2 (10-20); Calcium 8.9 mg/dl (8.6-10.3); Creatinine Clr Calc Pharmacy 67.5 ml/min; Est GFR (African American) 110.5 ml/min; Est GFR (Non-African American) 95.3 ml/min; Potassium 3.4 mmol/L (3.5-5.1)
[2024-03-31] MEDS: THIAMINE HCL 100 MG TAB PO SCH (07:50)
[2024-03-31] MEDS: POTASSIUM CHLORIDE CRTAB 20 MEQ TABCR PO ONE (09:54)
--- NOTE | 2024-03-31 15:32 | Hospitalist Progress Note ---
Date of Service March 31, 2024 Assessment & Plan (1) Weakness generalized: (2) Frequent falls: (3) Hypokalemia: (4) Hypomagnesemia: (5) Hyponatremia: (6) Alcohol abuse: (7) Rectal cancer: Plan This is a 59-year-old female who has significant past medical history of HTN, rectal cancer status post radiation and chemo however did not completely finish chemotherapy, iron deficiency anemia due to chronic blood loss, senile osteoporosis, history of compression fractures, chronic alcoholism, ataxia, chronic hyponatremia and anxiety who presents to ED secondary to lower extremity weakness and frequent falls. Generalized weakness Frequent falls Chronic Hyponatremia in setting of "beer potomania" Low urine and serum osm Received IV fluids Sodium improved to 138 Monitor sodium levels Continue PT OT Waiting for rehab placement Stable for discharge Nondisplaced fracture of fifth right metatarsal bone Appreciate Ortho input and recommendation Weightbearing as tolerated with walker Will wear a postop boot with activity Pain control Needs follow-up with orthopedics on discharge Rehab as able Chronic Anemia: 2/2 iron def and chronic rectal bleeding Pancytopenia: Likely due to marrow suppression from alcohol use, rectal cancer contributing as well Pt did have a large bloody bm in ED Rectal bleed likely secondary to rectal cancer, also hemorrhoid --CT ABD:Posttreatment stranding is seen in the rectum and perirectal fat. No conspicuous rectal mass or metastatic disease. --S/P 1 unit PRBCs --No myelodysplasia on peripheral smear --Normal vitamin B12 levels, normal iron, ferritin levels, normal folate levels -- Gastroenterology consulted -- Monitor H&H and transfuse as needed --Continue Protonix -- Needs follow-up with oncology and colorectal surgery as outpatient -- Hemoglobin stable Hypokalemia Replace and monitor Pancytopenia Likely secondary to cancer and radiation, alcohol abuse Received chemotherapy in the past, currently plans to discuss with oncology again to resume chemotherapy Monitor CBC Rectal Cancer: s/p XRT, did not complete chemo treatment due to side effects, Was suppose to undergo surgery but has not done this, CT shows Posttreatment stranding is seen in the rectum and perirectal fat. Appreciate GI input and recommendation Needs follow-up with colorectal surgery and oncology on discharge Denies any rectal pain currently Monitor CBC Hb 9.1 today Alcohol abuse: Educated on cessation AWSS protocol Completed gabapentin taper course Currently no signs of withdrawal Continue thiamine, folic acid Counseled to quit alcohol use Electrolyte abnormalities Hypokalemia and hypomagnesemia Monitor and replace electrolytes as needed Compression fx/Known osteoporosis: Vitamin D level has been low Started on vitamin D supplements DVT Px: SCDs Re: Rectal bleed CODE STATUS FULL CODE Disposition Rehab when accepted Case management to help with discharge planning Admission and Anticipated Discharge Date Admission Date: March 22, 2024 Subjective Patient is seen and examined at bedside No new complaints Right foot pain is controlled Denies any chest pain, dyspnea, nausea, vomiting, abdominal pain Waiting for rehab placement Review of Systems Review of Systems: All systems reviewed & are unremarkable except as noted in Subjective Physical Exam Physical Exam: Physical Exam: Vitals signs as noted above General Appearance: Chronically ill-appearing, thin, no apparent distress Head: normocephalic, Atraumatic Eyes: normal inspection, EOMI Neck: supple, Trachea midline Respiratory/Chest: Normal breath sounds, CTA,+Chemo port, No accessory muscle use Cardiovascular: S1, S2, No murmur Abdomen/GI:Soft, Non tender, Bowel sounds present Extremities/Musculoskeletal:normal inspection, no edema Neurologic/Psych:AAOX3, grossly no focal neurological deficits Skin: normal color, warm Results & Data Results & Data Vital Signs (Past 12 Hours) Vital Signs Temp Pulse Pulse Resp BP BP Pulse Ox 03/31/24 14:56 82 03/31/24 11:33 37.0 C 74 16 130/77 96 03/31/24 07:43 36.5 C 80 18 150/79 H 96 03/31/24 07:00 71 03/31/24 03:40 36.8 C 71 20 168/84 H 94 O2 Del Method 03/31/24 14:56 03/31/24 11:33 Room Air 03/31/24 07:43 Room Air 03/31/24 07:00 03/31/24 03:40 Room Air Laboratory Results Short CBC 03/31/24 Range/Units 05:18 WBC 2.35 L (4.8-10.8) K/ul Hgb 9.1 L (12.0-16.0) g/dl Hct 28.2 L (37.0-47.0) % Plt Count 187 (130-400) K/uL BMP 03/31/24 05:18 Sodium 138 Potassium 3.4 L Chloride 105 Carbon Dioxide 25 BUN 14 Creatinine 0.66 Glucose 96 Calcium 8.9
[2024-04-01 06:37] LABS: Hematocrit (blood only) 27.1 % (37.0-47.0); Hemoglobin 8.9 g/dl (12.0-16.0)
[2024-04-01 06:56] LABS: Potassium 3.8 mmol/L (3.5-5.1)
[2024-04-01 06:57] LABS: BUN Creatinine Ratio 25.4 (10-20); Calcium 8.8 mg/dl (8.6-10.3); Creatinine Clr Calc Pharmacy 75.6 ml/min; Est GFR (African American) 114.7 ml/min; Est GFR (Non-African American) 98.9 ml/min
--- NOTE | 2024-04-01 15:05 | Hospitalist Progress Note ---
Date of Service April 01, 2024 Assessment & Plan (1) Weakness generalized: (2) Frequent falls: (3) Hypokalemia: (4) Hypomagnesemia: (5) Hyponatremia: (6) Alcohol abuse: (7) Rectal cancer: Plan This is a 59-year-old female who has significant past medical history of HTN, rectal cancer status post radiation and chemo however did not completely finish chemotherapy, iron deficiency anemia due to chronic blood loss, senile osteoporosis, history of compression fractures, chronic alcoholism, ataxia, chronic hyponatremia and anxiety who presents to ED secondary to lower extremity weakness and frequent falls. Generalized weakness Frequent falls Chronic Hyponatremia in setting of "beer potomania" Low urine and serum osm Received IV fluids Sodium improved to 139 Monitor sodium levels Continue PT OT Stable for discharge Plan to discharge to rehab facility when accepted Nondisplaced fracture of fifth right metatarsal bone Appreciate Ortho input and recommendation Weightbearing as tolerated with walker Will wear a postop boot with activity Pain control Needs follow-up with orthopedics on discharge Rehab as able Case management to help with discharge planning Chronic Anemia: 2/2 iron def and chronic rectal bleeding Pancytopenia: Likely due to marrow suppression from alcohol use, rectal cancer contributing as well Pt did have a large bloody bm in ED Rectal bleed likely secondary to rectal cancer, also hemorrhoid --CT ABD:Posttreatment stranding is seen in the rectum and perirectal fat. No conspicuous rectal mass or metastatic disease. --S/P 1 unit PRBCs --No myelodysplasia on peripheral smear --Normal vitamin B12 levels, normal iron, ferritin levels, normal folate levels -- Gastroenterology consulted -- Monitor H&H and transfuse as needed --Continue Protonix -- Needs follow-up with oncology and colorectal surgery as outpatient -- Hemoglobin stable Hypokalemia Replace and monitor Pancytopenia Likely secondary to cancer and radiation, alcohol abuse Received chemotherapy in the past, currently plans to discuss with oncology again to resume chemotherapy Monitor CBC Rectal Cancer: s/p XRT, did not complete chemo treatment due to side effects, Was suppose to undergo surgery but has not done this, CT shows Posttreatment stranding is seen in the rectum and perirectal fat. Appreciate GI input and recommendation Needs follow-up with colorectal surgery and oncology on discharge Denies any rectal pain currently Monitor CBC Hb 8.9 today Alcohol abuse: Educated on cessation AWSS protocol Completed gabapentin taper course Continue thiamine, folic acid Counseled to quit alcohol use No signs of alcohol withdrawal currently Electrolyte abnormalities Hypokalemia and hypomagnesemia Monitor and replace electrolytes as needed Compression fx/Known osteoporosis: Vitamin D level has been low Started on vitamin D supplements DVT Px: SCDs Re: Rectal bleed CODE STATUS FULL CODE Disposition Rehab when accepted Case management to help with discharge planning Admission and Anticipated Discharge Date Admission Date: March 22, 2024 Subjective Patient is seen and examined at bedside States feeling well today Right foot pain is improving No new complaints Denies any chest pain, dyspnea, nausea, vomiting, abdominal pain Waiting for rehab placement Review of Systems Review of Systems: All systems reviewed & are unremarkable except as noted in Subjective Physical Exam Physical Exam: Physical Exam: Vitals signs as noted above General Appearance: Chronically ill-appearing, thin, no apparent distress Head: normocephalic, Atraumatic Eyes: normal inspection, EOMI Neck: supple, Trachea midline Respiratory/Chest: Normal breath sounds, CTA,+Chemo port, No accessory muscle use Cardiovascular: S1, S2, No murmur Abdomen/GI:Soft, Non tender, Bowel sounds present Extremities/Musculoskeletal:normal inspection, no edema Neurologic/Psych:AAOX3, grossly no focal neurological deficits Skin: normal color, warm Results & Data Results & Data Vital Signs (Past 12 Hours) Vital Signs Temp Pulse Resp BP Pulse Ox O2 Del Method 04/01/24 12:07 37.0 C 79 18 125/75 96 Room Air 04/01/24 07:57 36.9 C 74 16 164/95 H 96 Room Air Laboratory Results Short CBC 04/01/24 Range/Units 06:13 Hgb 8.9 L (12.0-16.0) g/dl Hct 27.1 L (37.0-47.0) % BMP 04/01/24 06:13 Sodium 139 Potassium 3.8 Chloride 107 Carbon Dioxide 26 BUN 15 Creatinine 0.59 L Glucose 97 Calcium 8.8
[2024-04-02 06:40] LABS: Hematocrit (blood only) 28.3 % (37.0-47.0); Hemoglobin 9.3 g/dl (12.0-16.0); Mean Corpuscular Hemoglobin 30.3 pg (25.0-34.0); Mean Corpuscular Hgb Conc 32.9 g/dL (32.0-36.0); Mean Corpuscular Volume 92.2 fL (80.0-100.0); Mean Platelet Volume 10.1 fL (9.4-12.4); Platelet Count 199 K/uL (130-400); RDW Coefficient of Variation 14.7 % (11.5-14.5); RDW Standard Deviation 49.6 fL (36.4-46.3); Red Blood Count 3.07 M/uL (4.20-5.40); White Blood Count 2.41 K/ul (4.8-10.8)
[2024-04-02 08:02] VITALS: RESP 18
[2024-04-02 11:37] VITALS: BP 107/62; TEMP 98.2; O2SAT 99
--- NOTE | 2024-04-02 12:09 | Hospitalist Progress Note ---
Date of Service April 02, 2024 Assessment & Plan (1) Weakness generalized: (2) Frequent falls: (3) Hypokalemia: (4) Hypomagnesemia: (5) Hyponatremia: (6) Alcohol abuse: (7) Rectal cancer: Plan This is a 59-year-old female who has significant past medical history of HTN, rectal cancer status post radiation and chemo however did not completely finish chemotherapy, iron deficiency anemia due to chronic blood loss, senile osteoporosis, history of compression fractures, chronic alcoholism, ataxia, chronic hyponatremia and anxiety who presents to ED secondary to lower extremity weakness and frequent falls. Generalized weakness Frequent falls Chronic Hyponatremia in setting of "beer potomania" Low urine and serum osm Received IV fluids Sodium improved to 139 Monitor sodium levels Continue PT OT Plan to discharge home today as no longer needs inpatient rehab Nondisplaced fracture of fifth right metatarsal bone Appreciate Ortho input and recommendation Weightbearing as tolerated with walker Will wear a postop boot with activity Pain control Needs follow-up with orthopedics on discharge Chronic Anemia: 2/2 iron def and chronic rectal bleeding Pancytopenia: Likely due to marrow suppression from alcohol use, rectal cancer contributing as well Pt did have a large bloody bm in ED Rectal bleed likely secondary to rectal cancer, also hemorrhoid --CT ABD:Posttreatment stranding is seen in the rectum and perirectal fat. No conspicuous rectal mass or metastatic disease. --S/P 1 unit PRBCs --No myelodysplasia on peripheral smear --Normal vitamin B12 levels, normal iron, ferritin levels, normal folate levels -- Gastroenterology consulted -- Monitor H&H and transfuse as needed --Continue Protonix -- Needs follow-up with oncology and colorectal surgery as outpatient -- Hemoglobin stable Hypokalemia Replace and monitor Pancytopenia Likely secondary to cancer and radiation, alcohol abuse Received chemotherapy in the past, currently plans to discuss with oncology again to resume chemotherapy Monitor CBC Rectal Cancer: s/p XRT, did not complete chemo treatment due to side effects, Was suppose to undergo surgery but has not done this, CT shows Posttreatment stranding is seen in the rectum and perirectal fat. Appreciate GI input and recommendation Advised to follow-up with colorectal surgery and oncology on discharge Denies any rectal pain currently Monitor CBC Hb 9.3 today Alcohol abuse: Educated on cessation AWSS protocol Completed gabapentin taper course Continue thiamine, folic acid Counseled to quit alcohol use on multiple occasions No signs of alcohol withdrawal currently Electrolyte abnormalities Hypokalemia and hypomagnesemia Monitor and replace electrolytes as needed Compression fx/Known osteoporosis: Vitamin D level has been low Started on vitamin D supplements DVT Px: SCDs Re: Rectal bleed CODE STATUS FULL CODE Disposition Home Disposition Rehab when accepted Case management to help with discharge planning Admission and Anticipated Discharge Date Admission Date: March 22, 2024 Subjective Patient is seen and examined at bedside Did much better with PT today No recurrence of bleeding Offers no new complaints Right foot pain much improved Denies any chest pain, dyspnea, nausea, vomiting, abdominal pain Plan to discharge home today Review of Systems Review of Systems: All systems reviewed & are unremarkable except as noted in Subjective Physical Exam Physical Exam: Physical Exam: Vitals signs as noted above General Appearance: Chronically ill-appearing, thin, no apparent distress Head: normocephalic, Atraumatic Eyes: normal inspection, EOMI Neck: supple, Trachea midline Respiratory/Chest: Normal breath sounds, CTA,+Chemo port, No accessory muscle use Cardiovascular: S1, S2, No murmur Abdomen/GI:Soft, Non tender, Bowel sounds present Extremities/Musculoskeletal:normal inspection, no edema Neurologic/Psych:AAOX3, grossly no focal neurological deficits Skin: normal color, warm Results & Data Results & Data Vital Signs (Past 12 Hours) Vital Signs Temp Pulse Pulse Resp BP BP Pulse Ox 04/02/24 11:36 36.8 C 82 18 107/62 99 04/02/24 08:05 74 133/83 04/02/24 08:01 37.0 C 76 18 160/85 H 96 04/02/24 08:00 04/02/24 08:00 72 04/02/24 02:19 37 C 75 16 162/85 H 95 Pulse Ox O2 Del Method O2 Del Method 04/02/24 11:36 Room Air 04/02/24 08:05 04/02/24 08:01 Room Air 04/02/24 08:00 96 Room Air 04/02/24 08:00 04/02/24 02:19 Room Air Laboratory Results Short CBC 04/02/24 Range/Units 06:08 WBC 2.41 L (4.8-10.8) K/ul Hgb 9.3 L (12.0-16.0) g/dl Hct 28.3 L (37.0-47.0) % Plt Count 199 (130-400) K/uL
--- NOTE | 2024-04-02 12:17 | Discharge Summary ---
Date of Service April 02, 2024 Admission HPI Per Admitting Provider This is a 59-year-old female who has significant past medical history of HTN, rectal cancer status post radiation and chemo however did not completely finish chemotherapy, iron deficiency anemia due to chronic blood loss, senile osteoporosis, history of compression fractures, chronic alcoholism, ataxia, chronic hyponatremia and anxiety who presents to ED secondary to lower extremity weakness and frequent falls. She lives at home with her . She ambulates with assistance of cane/walker or wheelchair. Over the last 3 to 4 days she has had significant difficulty walking and today she feels so weak she is unable to use her legs. She has a significant past medical history of rectal cancer for which she did complete radiation therapy but only completed a cycle or 2 of chemotherapy and discontinued due to intolerance. She was to undergo surgical treatment, but did not pursue this. She has chronic rectal bleeding which is dark red in nature. She has chronic alcohol use for which she drinks 6-16 ounce rpince lites daily. This is down from 14 a day. She has minimal oral intake with only some lunch meat/cheese the morning and some chips before bed. Her only liquid intake is at the beer. She denies any recent fever, chills, sweats, chest pain, shortness of breath, nausea, abdominal pain, increased urgency or frequency with urination. She does have frequent diarrhea. She currently uses alcohol. She is a former user of tobacco and marijuana but not currently. Admission Exam Per Admitting Provider Constitutional: WD/WN, vitals as above, NAD, sitting up in bed, pleasant, conversing easily Head: Normocephalic, Atraumatic Eyes: PERRL, conjunctivae normal, anicteric sclerae ENMT: external ear and nose normal, oropharynx normal Neck: trachea midline, no thyromegaly normal visual inspection Respiratory: normal respiratory effort, lungs clear to auscultation, no wheeze, rales, rhonchi. Normal insp/exp effort, no accessory muscle use Cardiovascular: RRR, no murmur, no edema Vessels: no JVD or carotid bruit Chest: normal inspection of chest Abdomen: normal bowel sounds, soft, nontender, no hepatosplenomegaly Musculoskeletal: no cyanosis or clubbing, AROM x 4, strength 4/5 bilateral lower ext 5/5 upper ext, no clonus Skin: no rashes, warm and dry normal turgor Neurologic: PERRL, EOMI, accommodation nl, no face palsy, no dysarthria CN's II-XI intact bilaterally and moves all extremities Psychiatric: A+Ox3, euthymic affect Lymphatic: no cervical or axillary lymphadenopathy : deferred Principal Diagnosis Right 5th Metatarsal fracture Alcohol use disorder Chronic hyponatremia Pancytopenia Rectal cancer Vitamin D deficiency Discharge Data Allergies Allergy/AdvReac Type Severity Reaction Status Date / Time No Known Allergies Allergy Verified 03/22/24 17:36 Consultations 03/22/24 16:46 ED Decision to Admit Stat 03/23/24 08:00 Consult Gastroenterology Routine 03/27/24 10:52 Consult Orthopedic Surgery Routine Procedures Performed Laboratory Results WBC 2.41 K/ul (4.8-10.8) L 04/02/24 06:08 RBC 3.07 M/uL (4.20-5.40) L 04/02/24 06:08 Hgb 9.3 g/dl (12.0-16.0) L 04/02/24 06:08 Hct 28.3 % (37.0-47.0) L 04/02/24 06:08 MCV 92.2 fL (80.0-100.0) 04/02/24 06:08 MCH 30.3 pg (25.0-34.0) 04/02/24 06:08 MCHC 32.9 g/dL (32.0-36.0) 04/02/24 06:08 RDW Std Deviation 49.6 fL (36.4-46.3) H 04/02/24 06:08 RDW Coeff of Kendall 14.7 % (11.5-14.5) H 04/02/24 06:08 Plt Count 199 K/uL (130-400) 04/02/24 06:08 MPV 10.1 fL (9.4-12.4) 04/02/24 06:08 Immature Gran % (Auto) 0.4 % 03/31/24 05:18 Neut % (Auto) 54.4 % 03/31/24 05:18 Lymph % (Auto) 26.0 % 03/31/24 05:18 Barton % (Auto) 16.6 % 03/31/24 05:18 Eos % (Auto) 1.7 % 03/31/24 05:18 Baso % (Auto) 0.9 % 03/31/24 05:18 Neut # (Auto) 1.28 K/uL (1.40-6.50) L 03/31/24 05:18 Lymph # (Auto) 0.61 K/uL (1.20-3.40) L 03/31/24 05:18 Barton # (Auto) 0.39 K/uL (0.11-0.59) 03/31/24 05:18 Eos # (Auto) 0.04 K/uL (0.00-0.50) 03/31/24 05:18 Baso # (Auto) 0.02 K/uL (0.00-0.20) 03/31/24 05:18 Immature Gran # (Auto) 0.01 K/uL (0.01-0.20) 03/31/24 05:18 RBC Morphology Unremarkable 03/29/24 05:36 Polychromasia 1+ 03/27/24 05:40 Peripher Smr Path Cons 03/27/24 15:30 PT 11.0 Seconds (9.0-12.0) 03/22/24 14:06 INR 1.0 (0.9-1.1) 03/22/24 14:06 APTT 30 Seconds (21-31) 03/22/24 14:06 PTT Ratio 1.1 03/22/24 14:06 Sodium 139 mmol/L (136-145) 04/01/24 06:13 Potassium 3.8 mmol/L (3.5-5.1) 04/01/24 06:13 Chloride 107 mmol/L (98-107) 04/01/24 06:13 Carbon Dioxide 26 mmol/L (21-32) 04/01/24 06:13 Anion Gap 6 (3-11) 04/01/24 06:13 BUN 15 mg/dl (6-23) 04/01/24 06:13 Creatinine 0.59 mg/dl (0.6-1.2) L 04/01/24 06:13 Est Cr Clr Drug Dosing 75.6 ml/min 04/01/24 06:13 Est GFR ( Amer) 114.7 ml/min 04/01/24 06:13 Est GFR (Non-Af Amer) 98.9 ml/min 04/01/24 06:13 BUN/Creatinine Ratio 25.4 (10-20) H 04/01/24 06:13 Glucose 97 mg/dl (70-99(Fasting)) 04/01/24 06:13 POC Glucose 104 mg/dl (70-99) H 03/30/24 20:24 Osmolality 265 mOsm/kg (280-300) L 03/22/24 14:06 Calcium 8.8 mg/dl (8.6-10.3) 04/01/24 06:13 Phosphorus 3.7 mg/dl (2.5-4.9) 03/22/24 14:06 Magnesium 1.7 mg/dl (1.7-2.4) 03/23/24 07:01 Iron 44 mcg/dl (35-150) 03/25/24 05:50 TIBC 154 mcg/dl (250-450) L 03/25/24 05:50 Unsaturated IBC 110 mcg/dl (155-355) L 03/25/24 05:50 Transferrin % Sat 29 % (15-50) 03/25/24 05:50 Ferritin 205.0 ng/ml (8-388) 03/25/24 05:50 Total Bilirubin 0.5 mg/dl (0.2-1.0) 03/23/24 07:01 AST 72 U/L (13-39) H 03/23/24 07:01 ALT 16 U/L (7-52) 03/23/24 07:01 Alkaline Phosphatase 79 U/L (34-104) 03/23/24 07:01 Troponin I High Sens 7.5 pg/ml (0-14) 03/22/24 14:06 Total Protein 5.2 gm/dl (6.0-8.3) L 03/23/24 07:01 Albumin 3.1 gm/dl (3.4-5.0) L 03/23/24 07:01 Globulin 2.1 gm/dl (2.5-4.0) L 03/23/24 07:01 Albumin/Globulin Ratio 1.5 (0.9-2) 03/23/24 07:01 Lipase 35 U/L (11-82) 03/22/24 14:06 Vitamin B1 868 nmol/L (8-30) H 03/23/24 07:01 Vitamin B12 277 pg/ml (180-914) 03/25/24 05:50 25-OH Vitamin D Total 16.4 ng/ml (30-100) L 03/23/24 07:01 Folate > 22.30 ng/ml (>5.38) 03/30/24 05:34 TSH 4.501 uIu/ml (0.300-4.500) H 03/25/24 05:50 Free T4 0.80 ng/dl (0.61-1.60) 03/25/24 05:50 Urine Color Yellow 03/22/24 17:59 Urine Appearance Clear (Clear) 03/22/24 17:59 Urine pH 6.0 (4.5-7.5) 03/22/24 17:59 Ur Specific [place] 1.019 (1.000-1.030) 03/22/24 17:59 Urine Protein Negative (Negative) 03/22/24 17:59 Urine Glucose (UA) Negative (Negative) 03/22/24 17:59 Urine Ketones Trace (Negative) H 03/22/24 17:59 Urine Blood Trace (Negative) H 03/22/24 17:59 Urine Nitrite Negative (Negative) 03/22/24 17:59 Urine Bilirubin Negative (Negative) 03/22/24 17:59 Urine Urobilinogen Negative (Negative) 03/22/24 17:59 Ur Leukocyte Esterase 2+ (Negative) H 03/22/24 17:59 Urine WBC (Auto) 0-5 /hpf (0-5) 03/22/24 17:59 Urine RBC (Auto) 0-2 /hpf (0-2) 03/22/24 17:59 U Hyaline Cast (Auto) 0-2 /lpf (0-2) 03/22/24 17:59 U Epithel Cells (Auto) 0-2 /hpf (0-2) 03/22/24 17:59 Urine Bacteria (Auto) None Seen (None Seen) 03/22/24 17:59 Urine Osmolality 137 mOsm/kg (500-800) L 03/22/24 17:59 Ethyl Alcohol mg/dL 15.9 mg/dl (<10.0) H 03/22/24 14:06 Blood Type O Positive 03/26/24 06:30 Antibody Screen NEGATIVE 03/26/24 06:30 Crossmatch See Detail 03/26/24 06:30 Impressions Chest X-Ray 03/22/24 13:57 XR chest 1V portable CLINICAL HISTORY: Weakness TECHNIQUE: Single frontal radiograph of the chest was obtained. Comparison: Comparison is made to chest radiograph 06/03/2023 FINDINGS: A port catheter is seen. Cardiomegaly is noted. The lungs are clear. No evidence of pleural effusion or pneumothorax. IMPRESSION: No acute chest disease. ACT 112: Negative or not required by law. Electronically signed by: Behzad Giron M.D. 03/22/2024 2:59 PM Abdomen/Pelvis CT 03/22/24 14:49 CT abd pelvis IV con only CLINICAL HISTORY: Colon CA, diarrhea, blood in stool, weakness TECHNIQUE: Helical axial images of the abdomen and pelvis were obtained and displayed. Automated dose lowering techniques and/or adjustment according to patient size were utilized for this exam. This exam was performed with intravenous contrast. CT DOSE: 1272.45 mGy.cm COMPARISON: Comparison is made to CT pelvis 06/03/2023 FINDINGS: Lower chest: No acute abnormality. Liver: Unremarkable. No focal lesions are seen. Gallbladder and biliary tree: Gallbladder polyp measures up to 4 mm. No intra- or extrahepatic biliary ductal dilation. Pancreas: Unremarkable, no focal lesions. Spleen: Unremarkable. Adrenals: Unremarkable. Kidneys and ureters: There is thickening and enhancement of the right ureter without evidence of obstructive stone/mass. Bladder: Diffuse homogeneous wall thickening is seen. Reproductive organs: Unremarkable. Bowel: Unremarkable. Lymph nodes Retroperitoneal: Unremarkable. Pelvic: Unremarkable. Mesenteric: Unremarkable. Peritoneum: Normal. Vessels: Atherosclerotic calcifications are seen. Abdominal wall: Unremarkable. Bones: Multilevel degenerative changes are seen with numerous compression deformities most prominently in T12 and L1. Scattered lytic and sclerotic foci are seen. IMPRESSION: 1. Compared to exam of 2022, there is significant progression of compression deformities of L5, L1, and T12. There is a likely acute to subacute fracture of the anterior aspect of the T12 vertebral body. 2. Otherwise no acute abnormalities are seen. ACT 112: Negative or not required by law. Electronically signed by: Behzad Giron M.D. 03/22/2024 4:[address] 03/22/24 14:49 CT head/brain wo con CLINICAL HISTORY: 59 years-old Female with falls, weakness. Acute head trauma status post fall TECHNIQUE: Multiple axial CT images of the head were obtained without contrast. A dose lowering technique was utilized adhering to the principles of ALARA. COMPARISON: Head CT 06/03/2023 FINDINGS: No acute intracranial hemorrhage, midline shift, intracranial mass, hydrocephalus, territorial ischemia or abnormal extra-axial collection. Involutional changes with bifrontal atrophy redemonstrated. Probable underlying chronic microvascular ischemic disease. Motion degraded exam. The calvarium is intact. The paranasal sinuses, mastoid air cells, and middle ear cavities are clear. IMPRESSION: No acute intracranial abnormality or calvarial fracture. ACT 112: Negative or not required by law. The above report was generated using voice recognition software. It may contain grammatical, syntax or spelling errors. Electronically signed by: Calderon Sky M.D. 03/22/2024 4:17 PM Foot X-Ray 03/26/24 17:03 XR foot RT 2V CLINICAL HISTORY: Right foot pain and swelling following fall. Evaluate for fracture. COMPARISON: None FINDINGS: Alignment of the tarsometatarsal joints is anatomic. There is subtle cortical irregularity and deformity of the distal shaft of the right fifth metatarsal. This represents a minimally displaced fracture. No additional fractures within the right foot are present. IMPRESSION: Subtle cortical irregularity and deformity of the distal shaft of the right fifth metatarsal. This is age-indeterminate but favors a subacute to acute minimally displaced fracture. This could be correlated with point tenderness. ACT 112: Negative or not required by law. Electronically signed by: Dion Javier M.D. 03/26/2024 6:19 PM Ordered Studies 03/22/24 14:49 CT abd pelvis IV con only Stat CT head/brain wo con Stat Hospital Course (1) Weakness generalized: (2) Frequent falls: (3) Hypokalemia: (4) Hypomagnesemia: (5) Hyponatremia: (6) Alcohol abuse: (7) Rectal cancer: Plan This is a 59-year-old female who has significant past medical history of HTN, rectal cancer status post radiation and chemo however did not completely finish chemotherapy, iron deficiency anemia due to chronic blood loss, senile osteoporosis, history of compression fractures, chronic alcoholism, ataxia, chronic hyponatremia and anxiety who presents to ED secondary to lower extremity weakness and frequent falls. Generalized weakness Frequent falls Chronic Hyponatremia in setting of "beer potomania" Low urine and serum osm Received IV fluids Sodium improved to 139 Monitor sodium levels Continue PT OT Plan to discharge home today as no longer needs inpatient rehab Nondisplaced fracture of fifth right metatarsal bone Appreciate Ortho input and recommendation Weightbearing as tolerated with walker Will wear a postop boot with activity Pain control Needs follow-up with orthopedics on discharge Chronic Anemia: 2/2 iron def and chronic rectal bleeding Pancytopenia: Likely due to marrow suppression from alcohol use, rectal cancer contributing as well Pt did have a large bloody bm in ED Rectal bleed likely secondary to rectal cancer, also hemorrhoid --CT ABD:Posttreatment stranding is seen in the rectum and perirectal fat. No conspicuous rectal mass or metastatic disease. --S/P 1 unit PRBCs --No myelodysplasia on peripheral smear --Normal vitamin B12 levels, normal iron, ferritin levels, normal folate levels -- Gastroenterology consulted -- Monitor H&H and transfuse as needed --Continue Protonix -- Needs follow-up with oncology and colorectal surgery as outpatient -- Hemoglobin stable Hypokalemia Replace and monitor Pancytopenia Likely secondary to cancer and radiation, alcohol abuse Received chemotherapy in the past, currently plans to discuss with oncology again to resume chemotherapy Monitor CBC Rectal Cancer: s/p XRT, did not complete chemo treatment due to side effects, Was suppose to undergo surgery but has not done this, CT shows Posttreatment stranding is seen in the rectum and perirectal fat. Appreciate GI input and recommendation Advised to follow-up with colorectal surgery and oncology on discharge Denies any rectal pain currently Monitor CBC Hb 9.3 today Alcohol abuse: Educated on cessation AWSS protocol Completed gabapentin taper course Continue thiamine, folic acid Counseled to quit alcohol use on multiple occasions No signs of alcohol withdrawal currently Electrolyte abnormalities Hypokalemia and hypomagnesemia Monitor and replace electrolytes as needed Compression fx/Known osteoporosis: Vitamin D level has been low Started on vitamin D supplements DVT Px: SCDs Re: Rectal bleed CODE STATUS FULL CODE Disposition Home Disposition Rehab when accepted Case management to help with discharge planning Total Time Total Time Spent Total Time Spent (In Minutes): 56 minutes Discharge Plan Discharge Items Patient Disposition: Home - Self-Care Reason For Visit: WEAKNESS, CHRONIC HYPONATREMIA Discharge Diagnosis: Right 5th Metatarsal fracture Alcohol use disorder Chronic hyponatremia Pancytopenia Rectal cancer Vitamin D deficiency Condition on Discharge: Good Activity: Per Instructions section Exercise/Sports: Wait until after follow-up appointment Non-emergency contact: Primary Care Provider and Surgeon Call non-emergency contact if: you have any medication questions, your symptoms worsen, your pain is concerning for you and you have a fever Follow-up/Referrals: Phyllis Peters PA-C [Physician Ice Cream Machine Operator] - 04/09/24 1:15 pm Shelli Ritter MD [Primary Care Provider] - Diet: Regular Add Attending Provider Instructions: Follow-up with your primary care physician Dr. Ritter in 1 week Follow-up with orthopedics surgeon Phyllis Peters PA-C on 04/09/2024 at 1:15 PM as scheduled Follow-up with your colorectal surgeon as recommended for further evaluation of your rectal cancer Follow-up with your oncologist as recommended -- Quit drinking alcohol as advised -- Monitor your blood pressure regularly as advised. Discuss with your physician for further adjustment of medications as needed --Complete the vitamin D supplements as prescribed. You will need a repeat vitamin D blood levels checked in 4 to 6 weeks for further management. Seek immediate medical attention if your symptoms reoccur or worsen Please take all medications as instructed on discharge list below. Please call if you have any questions or problems. You can reach a [facility] hospitalist on duty at [facility] [address] 24 hours a day by calling [phone] [facility] [employer] T[employer] Provider Instructions: Orthopedic Instructions: - Weight-bear as tolerated with a postop shoe on your right foot when out of bed. -Use walker as needed for ambulation. -Ice to right foot as needed for pain and swelling. -Elevate right foot above your heart to relieve swelling. -May remove postop shoe at rest and to bathe. -Allowed for ankle, toes and knee range of motion as tolerated. -May use an Supa bandage, Chucky stocking or Tubigrip on right lower extremity to assist with compression to control swelling. -Advance activities as tolerated. May progress to a comfortable shoe as tolerated. -Expect bruising to your right foot and the base of your toes on your right foot. -Follow-up with [facility] orthopedics as scheduled. Call [phone] with any increased pain, swelling, questions or concerns. Pending Studies at Discharge: No Stand-Alone Forms: My [facility] [employer] [facility], Smoking Cessation Medications and DC Order Prescriptions: New amlodipine 2.5 mg tablet 2.5 mg PO QAM Qty: 30 0RF thiamine HCl (vitamin B1) 100 mg Tablet 100 mg PO QAM Qty: 30 0RF ergocalciferol (vitamin D2) 1,250 mcg (50,000 unit) Capsule 1,250 mcg PO Q7D Qty: 4 0RF Continued sertraline 100 mg tablet 100 mg PO DAILY pantoprazole 40 mg tablet,delayed release (DR/EC) 40 mg PO DAILY metoprolol tartrate 50 mg tablet 50 mg PO BID folic acid 1 mg tablet 1 mg PO DAILY lisinopril 40 mg tablet 40 mg PO DAILY buspirone 15 mg tablet 15 mg PO BID polyethylene glycol 3350 [Miralax] 17 gram Powder In Packet 17 g PO DAILY PRN (Reason: constipation) Qty: 0 0RF magnesium oxide 400 mg (241.3 mg magnesium) Tablet 400 mg PO QAM Qty: 30 0RF Discharge Orders: Discharge Order (Routine); Ordered 04/02/24 Ordered By: Thuan Cade Admission Data Admit Date/Time: 03/22/24 17:18 Attending Provider: Thuan Cade Admit Provider: Cullen Mckenna Primary Care Provider: Shelli Ritter Other Providers: Carlita Tristan; Cullen Mckenna; [facility]; Puma Baker; Kal Rae; Mauricio Wisdom; Ellen Angeles; Indio Duarte; Ashley Hastings; Silvio Nance; Kwaku Johnson; Artemio Flores; Clifford Timmons; Kwaku Apodaca; Donald Melo; Ronaldo Wilkinson; Deep Tinajero; Isidro Taveras; Ashley Montiel; Ishmael Hager Adam M.; Luis Holt; Jordana Lim; Antwon Alvarado; Fuentes Martinez; Vanessa White; Calderon Morgan; Radha Medina
[2024-04-02 13:49] VITALS: PULSE 82
== END 2024-04-02 16:25 | disposition home or self-care (01) | DRG 897 ==
LOC: ED 13:41 → EDINP 17:18 → SUATTDRO 17:18 → 2N 21:16 → 2W 03-26 07:57

== ENCOUNTER 2024-11-28 18:19 | Inpatient (IN) ==
--- NOTE | 2024-11-28 18:31 | Emergency Department Note ---
Impression & Plan Anemia requiring transfusions, Hypomagnesemia, Acute dyspnea, RSV infection, Fracture of fifth metacarpal bone of left hand, Acute hypokalemia, Acute hyponatremia ED Provider Note HISTORY OF PRESENT ILLNESS: Patient is a 59-year-old female presenting with shortness of breath, cough and diarrhea. Patient reports for the last 2 weeks she has been having diarrhea. Reports that she has an episode of loose stool about every 10 minutes. Reports that she thought this would get better, but it has not. She reports has been unable to get up out of bed secondary to weakness and how much diarrhea she has been having. She also reports she been having shortness of breath and a nonproductive cough for the last 2 weeks. Reports that her daughter was sick with a cough and shortness of breath and gave the upper respiratory infection to her who then passed it to her. Patient reports a history of colon cancer, but reports that her last round of chemo was 2 years ago. Reports that "I just stopped going and getting treatment." She does report that her diarrhea has what looks like blood in it. She denies any recent antibiotic use. Denies any abdominal pain. Denies any fevers. Denies any dysuria or hematuria. Reports has not had much of an appetite in the last 2 weeks secondary to her cough and diarrhea. Patient reports that she was so weak yesterday that she fell getting out of bed. She reports that she did strike her head but did not lose consciousness. EMS reports that the patient was very wheezy and route and was given 2 DuoNeb treatments and 125 mg of Solu-Medrol. She is also given about 200 cc of fluid. ROS: as above PHYSICAL EXAM: Constitutional: Patient appears in no acute distress. HENT: Head: Normocephalic and atraumatic. Eyes: EOMI, PERRL Mouth/Throat: Mucous membranes moist. Neck: Trachea midline. Neck supple. Cardiovascular: Tachycardic with regular rhythm. No murmurs, rubs or gallops. Intact distal pulses. Pulmonary/Chest: No respiratory distress. Breath sounds clear and equal bilaterally. Diffuse expiratory wheezes bilaterally. Abdominal: Abdomen soft, no tenderness, rebound or guarding. Musculoskeletal: No - LUE: Patient is noted to have diffuse ecchymosis to the volar surface of the left hand. She is able to give thumbs up, okay sign and cross fingers. Sensation intact to light touch about the nerve distributions of the hand. She is able to flex and extend at the wrist. Intact radial pulse. Skin: Warm and dry. Psychiatric: Appropriate mood and affect for situation. Neurological: Alert and keenly responsive. CN II-XII grossly intact, moving all extremities equally and fully. MDM: - Vitals signs showed tachycardia. - History obtained via patient. History as above. - Chronic conditions affecting care: anxiety/depression; rectal cancer - Differential diagnoses include, but are not limited to: viral syndrome; pneumonia; anemia; bowel obstruction; colitis; diverticulitis - Order placed for continuous cardiac monitoring. At this time, monitor showed rate of 105 bpm with normal sinus rhythm, per my interpretation. - External medical records reviewed. Discharge summary dated 04/02/2024 was reviewed. Patient was admitted at that time for alcohol use disorder, pancytopenia and rectal cancer. - EKG image interpreted by myself showed Normal sinus rhythm. Rate tachycardic at 102 bpm. QT 350. No acute ischemic changes. - Laboratory workup interpreted by myself showed normal WBC; anemia (Hgb 4.5); normal PT/INR; hyponatremia (Na 126); normal lactate; hypokalemia (K 3.3); elevated anion gap (14); hypomagnesemia (Mg 1.4); transaminitis (AST 97; ALT 54); normal lipase; normal procalcitonin; normal troponin - Viral swab positive for RSV - CT abdomen/pelvis with IV contrast showed circumferential wall thickening and edema of the anus and rectum compatible with proctitis. Urinary bladder wall thickening and perivascular inflammatory change concerning for cystitis. - CXR image reviewed by myself showed no obvious pneumonia, per my interpretation. Radiology reports "possible bilateral lower lobe bronchopneumonia." - Xray left hand image interpreted by myself showed 1/5 metacarpal neck fracture, per my interpretation. Radiology notes this fracture as well as well as age-indeterminate fractures of the bases of the fourth and fifth finger proximal phalanges and old fracture of the distal radius and ulna. - Patient's left hand was placed in an ulnar gutter splint. - Patient given 80 mg IV protonix and started on protonix drip - Given 1g IV magnesium and 10 mEq IV potassium for electrolyte replacement. Given 1L NS - Type and screen obtained. Patient consented for blood. 3 units PRBC ordered, with 2 units to transfuse now. - Discussion was had with egg caser about patient's case and need for admission - Hospitalist, Dr. Hawkins, consulted for admission - [facility]. I have personally spent 62 minutes of critical care time in the direct management of this patient. This includes bedside care, interpretation of diagnostic studies, and testing, discussion with consultants, patient, and family members, and other required patient management activities. This 62 minutes is in excess of all separately billable procedures. ASSESSMENT AND PLAN: Diagnosis: anemia requiring transfusion; hypomagnesemia; acute dyspnea; RSV infection; fracutre of fifth metacarpal bone of left hand; acute hypokalemia; acute hyponatremia Plan: admit Past Med/Surg History Problem List (Updated 11/28/24 @ 21:14 by Carolyn Real MD) Acute hyponatremia (Acute) Acute hypokalemia (Acute) Fracture of fifth metacarpal bone of left hand (Acute) RSV infection (Acute) Acute dyspnea (Acute) Hypomagnesemia (Acute) Anemia requiring transfusions (Acute) Nondisplaced fracture of fifth right metatarsal bone Right foot pain Hypokalemia (Acute) Weakness generalized (Acute) Frequent falls (Acute) T12 compression fracture Hypomagnesemia (Acute) Weakness (Acute) Closed fracture of right distal radius (Acute) Fall (Acute) Rectal cancer Bipolar affect, depressed Essential hypertension Acute electrocardiogram changes GI bleeding Alcohol abuse Acute GI bleeding (Acute) Anemia (Acute) Hyponatremia (Acute) Seizure (Chronic) Medical History History of peptic ulcer Feeling suicidal Depression Anxiety Fracture of lumbar spine Surgical History H/O colonoscopy H/O esophagogastroduodenoscopy S/P D&C (status post dilation and curettage) Family History Family/Other Cancer brain and lung from separate female cousins Social History Smoking Status: Former smoker Tobacco Type: Cigarettes Second Hand Exposure: No; Do You Dip or Chew Tobacco: No; Hx Alcohol Use: Yes Alcohol type: beer Alcohol Intake Frequency: 4 or More x per/Week Alcohol Intake Frequency Comment: 6-9 16oz beer/day Hx Substance Use: No Preferred Language: Bulgarian Communication Ability: Effective Visual Impairment: No Limitations Hearing Ability: Normal Project Admin Required: No Beliefs That Will Affect Care: None Current Living Situation: Spouse Current Living Situation Comment: Home current occupational status: unemployed Feels Safe at Home: Yes during the past year weight has: remained stable Assistive Devices: Glasses and Walker Allergies Allergies Allergy/AdvReac Type Severity Reaction Status Date / Time No Known Allergies Allergy Verified 03/22/24 17:36 Home Meds Home Medications Medication Instructions Recorded Confirmed buspirone 15 mg tablet 15 mg PO BID 06/04/23 03/22/24 folic acid 1 mg tablet 1 mg PO DAILY 06/04/23 11/28/24 lisinopril 40 mg tablet 40 mg PO DAILY 06/04/23 11/28/24 metoprolol tartrate 50 mg tablet 50 mg PO BID 06/04/23 11/28/24 pantoprazole 40 mg tablet,delayed 40 mg PO QAM 06/04/23 03/22/24 release sertraline 100 mg tablet 100 mg PO DAILY 06/04/23 11/28/24 Previous Rx's Medication Instructions Recorded magnesium oxide 400 mg (241.3 mg 400 mg PO QAM #30 tabs 06/09/23 magnesium) tablet polyethylene glycol 3350 17 gram 17 g PO DAILY PRN constipation #0 06/09/23 oral powder packet (Miralax) ea amlodipine 2.5 mg tablet 2.5 mg PO QAM #30 tabs 04/02/24 ergocalciferol (vitamin D2) 1,250 1,250 mcg PO Q7D #4 caps 04/02/24 mcg (50,000 unit) capsule thiamine HCl (vitamin B1) 100 mg 100 mg PO QAM #30 tabs 04/02/24 tablet Results & Data (ED) Vital Signs Vital Signs - 24 hr 11/28/24 18:08 11/28/24 18:43 11/28/24 19:07 Temperature 36.8 C Temperature Source Oral Pulse Rate 103 H 99 H 108 H Respiratory Rate 16 21 Respiratory Effort / Characteristics Non-Labored Respiratory Depth Normal Respiratory Pattern Regular Blood Pressure 128/83 Blood Pressure Mean 98 Pulse Oximetry 96 100 Oxygen Delivery Method Room Air Room Air Sepsis Recent Fever Within 48 Hours No Sepsis New/Unexplained Change in Mental Status No Sepsis Action Taken by Nursing No Action Required Laboratory Data 11/28/24 20:02 11/28/24 18:40 Lab Results 11/28/24 11/28/24 11/28/24 Range/Units 18:40 18:45 19:21 WBC Cancelled RBC Cancelled Hgb Cancelled Hct Cancelled MCV Cancelled MCH Cancelled MCHC Cancelled RDW Std Deviation Cancelled RDW Coeff of Kendall Cancelled Plt Count Cancelled MPV Cancelled Immature Gran % (Auto) Cancelled Neut % (Auto) Cancelled Lymph % (Auto) Cancelled Sac % (Auto) Cancelled Eos % (Auto) Cancelled Baso % (Auto) Cancelled Neut # (Auto) Cancelled Lymph # (Auto) Cancelled Sac # (Auto) Cancelled Eos # (Auto) Cancelled Baso # (Auto) Cancelled Immature Gran # (Auto) Cancelled Absolute Nucleated RBC Cancelled Nucleated RBC % (auto) Cancelled Neutrophils % (Manual) Cancelled Band Neutrophils % Cancelled Lymphocytes % (Manual) Cancelled Prolymphocyte % Cancelled Reactive Lymphs % (Man) Cancelled Monocytes % (Manual) Cancelled Eosinophils % (Manual) Cancelled Basophils % (Manual) Cancelled Metamyelocytes % (Man) Cancelled Myelocytes % (Man) Cancelled Promyelocytes % (Man) Cancelled Blast Cells % (Manual) Cancelled Plasma Cell % (Manual) Cancelled Other Cells % Cancelled Nucleated RBC % Cancelled Neutrophils # (Manual) Cancelled Band Neutrophils # Cancelled Total Absolute Neuts Cancelled Lymphocytes # (Manual) Cancelled Prolymphocyte # Cancelled Reactive Lymphs # Cancelled Total Abs Lymphocytes Cancelled Monocytes # (Manual) Cancelled Eosinophils # (Manual) Cancelled Basophils # (Manual) Cancelled Metamyelocytes # (Man) Cancelled Myelocytes # (Manual) Cancelled Promyelocytes # (Man) Cancelled Blast Cells # (Man) Cancelled Plasma Cell # (Manual) Cancelled Other Cells # Cancelled Nucleated RBCs # (Man) Cancelled Hypersegmented Neuts Cancelled Hyposegmented Neuts Cancelled Hypogranular Neuts Cancelled Large Granular Lymphs Cancelled # Lrg Granular Lymphs Cancelled Hairy Cells Cancelled Smudge Cells Cancelled Toxic Granulation Cancelled Toxic Vacuolation Cancelled Dohle Bodies Cancelled Sharan Rods Cancelled Platelet Estimate Cancelled Hypogranular Platelets Cancelled Giant Platelets Cancelled Platelet Satelliting Cancelled RBC Morphology Cancelled Polychromasia Cancelled Hypochromasia Cancelled Poikilocytosis Cancelled Basophilic Stippling Cancelled Anisocytosis Cancelled Microcytosis Cancelled Macrocytosis Cancelled Spherocytes Cancelled Pappenheimer Bodies Cancelled Sickle Cells Cancelled Target Cells Cancelled Tear Drop Cells Cancelled Ovalocytes Cancelled Stomatocytes Cancelled [place] Bodies Cancelled Echinocytes Cancelled Acanthocytes (Spur) Cancelled Rouleaux Cancelled RBC Agglutinates Cancelled Schistocytes Cancelled Sezary Cell Cancelled PT 11.5 (9.0-12.0) Seconds INR 1.1 (0.9-1.1) Sodium 126 L (136-145) mmol/L Potassium 3.3 L (3.5-5.1) mmol/L Chloride 96 L (98-107) mmol/L Carbon Dioxide 14 L (21-32) mmol/L Anion Gap 16 H (3-11) BUN 6 (6-23) mg/dl Creatinine 0.57 L (0.6-1.2) mg/dl Est Cr Clr Drug Dosing 73.6 ml/min eGFR 103.33 BUN/Creatinine Ratio 10.5 (10-20) Glucose 99 (70-99(Fasting)) mg/dl Lactate 1.9 (0.4-2.0) mmol/L Calcium 7.2 L (8.6-10.3) mg/dl Magnesium 1.4 L (1.7-2.4) mg/dl Total Bilirubin 0.8 (0.2-1.0) mg/dl AST 97 H (13-39) U/L ALT 54 H (7-52) U/L Alkaline Phosphatase 188 H (34-104) U/L Troponin I High Sens 5.8 (0-14) pg/ml Total Protein 5.1 L (6.0-8.3) gm/dl Albumin 2.5 L (3.4-5.0) gm/dl Globulin 2.6 (2.5-4.0) gm/dl Albumin/Globulin Ratio 1.0 (0.9-2) Lipase 45 (11-82) U/L Procalcitonin 0.15 (0-0.5) ng/ml SARS-CoV-2 (PCR) NEGATIVE (Negative) Influenza Type A (PCR) Negative (Neg) Influenza Type B (PCR) Negative (Neg) RSV (RT-PCR) Positive A (Neg) Blood Parasites ID Cancelled Blood Type Antibody Screen Crossmatch 11/28/24 Range/Units 20:02 WBC 5.28 RBC 1.97 L Hgb 4.5 L* Hct 15.4 L* MCV 78.2 L MCH 22.8 L MCHC 29.2 L RDW Std Deviation 51.2 H RDW Coeff of Kendall 19.1 H Plt Count 272 MPV 9.5 Immature Gran % (Auto) 0.6 Neut % (Auto) 87.8 Lymph % (Auto) 5.7 Sac % (Auto) 5.9 Eos % (Auto) 0.0 Baso % (Auto) 0.0 Neut # (Auto) 4.64 Lymph # (Auto) 0.30 L Sac # (Auto) 0.31 Eos # (Auto) 0.00 Baso # (Auto) 0.00 Immature Gran # (Auto) 0.03 Absolute Nucleated RBC Nucleated RBC % (auto) Neutrophils % (Manual) Band Neutrophils % Lymphocytes % (Manual) Prolymphocyte % Reactive Lymphs % (Man) Monocytes % (Manual) Eosinophils % (Manual) Basophils % (Manual) Metamyelocytes % (Man) Myelocytes % (Man) Promyelocytes % (Man) Blast Cells % (Manual) Plasma Cell % (Manual) Other Cells % Nucleated RBC % Neutrophils # (Manual) Band Neutrophils # Total Absolute Neuts Lymphocytes # (Manual) Prolymphocyte # Reactive Lymphs # Total Abs Lymphocytes Monocytes # (Manual) Eosinophils # (Manual) Basophils # (Manual) Metamyelocytes # (Man) Myelocytes # (Manual) Promyelocytes # (Man) Blast Cells # (Man) Plasma Cell # (Manual) Other Cells # Nucleated RBCs # (Man) Hypersegmented Neuts Hyposegmented Neuts Hypogranular Neuts Large Granular Lymphs # Lrg Granular Lymphs Hairy Cells Smudge Cells Toxic Granulation Toxic Vacuolation Dohle Bodies Sharan Rods Platelet Estimate Hypogranular Platelets Giant Platelets Platelet Satelliting RBC Morphology Polychromasia 1+ Hypochromasia Poikilocytosis Basophilic Stippling Anisocytosis Microcytosis Macrocytosis Spherocytes Pappenheimer Bodies Sickle Cells Target Cells Tear Drop Cells Ovalocytes Stomatocytes [place] Bodies Echinocytes Acanthocytes (Spur) Rouleaux RBC Agglutinates Schistocytes Sezary Cell PT (9.0-12.0) Seconds INR (0.9-1.1) Sodium (136-145) mmol/L Potassium (3.5-5.1) mmol/L Chloride (98-107) mmol/L Carbon Dioxide (21-32) mmol/L Anion Gap (3-11) BUN (6-23) mg/dl Creatinine (0.6-1.2) mg/dl Est Cr Clr Drug Dosing ml/min eGFR BUN/Creatinine Ratio (10-20) Glucose (70-99(Fasting)) mg/dl Lactate (0.4-2.0) mmol/L Calcium (8.6-10.3) mg/dl Magnesium (1.7-2.4) mg/dl Total Bilirubin (0.2-1.0) mg/dl AST (13-39) U/L ALT (7-52) U/L Alkaline Phosphatase (34-104) U/L Troponin I High Sens (0-14) pg/ml Total Protein (6.0-8.3) gm/dl Albumin (3.4-5.0) gm/dl Globulin (2.5-4.0) gm/dl Albumin/Globulin Ratio (0.9-2) Lipase (11-82) U/L Procalcitonin (0-0.5) ng/ml SARS-CoV-2 (PCR) (Negative) Influenza Type A (PCR) (Neg) Influenza Type B (PCR) (Neg) RSV (RT-PCR) (Neg) Blood Parasites ID Blood Type O Positive Antibody Screen NEGATIVE Crossmatch See Detail Administered Medications Discontinued Medications Sodium Chloride (Nss) 1,000 mls @ 999 mls/hr IV .Q1H1M ONE Stop: 11/28/24 20:27 Last Admin: 11/28/24 19:43 Dose: 999 mls/hr Documented By: LÓPEZ Magnesium Sulfate/Dextrose (Magnesium Sulfate / D5w) 1 gm in 100 mls @ 100 mls/hr IV NOW STA Stop: 11/28/24 20:26 Last Admin: 11/28/24 19:45 Dose: 100 mls/hr Documented By: LÓPEZ Potassium Chloride (K Chivo / Wtr) 10 meq in 100 mls @ 100 mls/hr IV ONE ONE Stop: 11/28/24 20:26 Last Admin: 11/28/24 19:48 Dose: 100 mls/hr Documented By: LÓPEZ Ioversol (Optiray 320 100ml) 90 ml IV ONCE ONE Stop: 11/28/24 19:39 Last Admin: 11/28/24 19:38 Dose: 90 ml Documented By: Emelina Imaging Data Radiologist's Impression: Abdomen/Pelvis CT 11/28/24 18:27 EXAMINATION: Abdomen and pelvis CT with CLINICAL HISTORY: Diarrhea, history of colon cancer PRIORS: 03/22/2024 TECHNIQUE: Contiguous axial images were obtained through the abdomen and pelvis with the use of intravenous contrast. Sagittal and coronal reformations are supplied. FINDINGS: Mild tree-in-bud opacity present in the visualized left lung base.. Fatty infiltration of the liver noted. No hepatic masses identified. Possible small gallbladder polyp in the fundus, image 122, series 3 measuring 4 mm, unchanged. The portal vein, pancreas, spleen, under distended stomach, and adrenals are morphologically unremarkable. Moderate atherosclerotic disease of the abdominal aorta. IVC unremarkable. Kidneys enhance symmetrically. Urinary bladder distended with moderate wall thickening and perivesicular inflammatory change, increased in the interval. Circumferential wall thickening of the anus and rectum is noted, appearing in the interval, image 286, series 3 with moderate perirectal inflammatory change, increased. No discrete mass. Submucosal contrast enhancement noted. No significant amount of stool noted in the colon. Gas present in the transverse colon. No dilated loops of bowel or bowel obstruction. Mild diffuse induration of the mesentery noted with no soft tissue nodules or ascites. No extraluminal gas. Advanced osseous demineralization with sclerosis and lucency of the sacrum, not significantly changed. Moderate lumbar scoliosis, convex to the left with advanced degenerative change noted with multiple compression fractures, age-indeterminate. Underlying osseous metastases is not excluded and/or radiation change. IMPRESSION: 1. Circumferential wall thickening and edema involving the anus and rectum, appearing in the interval, compatible with Proctitis. Please correlate if there has been radiation to this area as it could represent radiation proctitis. Perirectal inflammatory change noted, increased. An underlying mass is not excluded. 2. Urinary bladder wall thickening with perivesicular inflammatory change, progressed in the interval. As above, this finding could represent cystitis secondary to radiation. 3. Advanced osseous demineralization and heterogeneously sclerotic appearance of the sacrum and multiple vertebral bodies with lumbar spine compression fractures. 4. Mild new tree-in-bud nodular attenuation in the left lung base representing bronchiolitis. ACT 112: Positive. There are findings on this examination that require communication between the performing entity and the patient following Patient Test Result Information Act ([place] ACT 112) guidelines. Electronically signed by Shawnee Sanchez 11-28-2024 8:16 PM Chest X-Ray 11/28/24 18:27 Clinical History: Cough Technique: A frontal view of the chest was obtained Comparison is made to the prior examination dated 03/22/2024 Findings: There is new mild interstitial prominence in both lower lobes. The heart size is within normal limits. No pleural effusion or pneumothorax is seen. There is no definite pulmonary nodule. There is an unchanged right chest wall port with its tip in the lower SVC. There is an unchanged old right rib fracture. There is scoliosis. There is mild elevation of the left hemidiaphragm Impression: Possible bilateral lower lobe bronchopneumonia ACT 112: Positive. There are findings on this exam that require communication between the performing entity and the patient following Patient Test Result Information Act ([place] ACT 112) guidelines. Electronically signed by Scotty Chery 11-28-2024 7:36 PM Hand X-Ray 11/28/24 18:31 Clinical History: Bruising after fall 4 views of the left hand are submitted for review. Findings: There is an acute fracture of the fifth metacarpal neck with mild displacement and angulation. There are age indeterminate fractures of the bases of the fourth and fifth finger proximal phalanges. There is deformity of the distal radial metaphysis, likely due to an old healed fracture. There is a suspected old nonunited fracture of the ulnar styloid process. No subluxation or dislocation is seen. There is osteopenia. There is mild osteoarthritis of the thumb carpometacarpal joint. No other osseous abnormality is identified. There are no radiopaque foreign bodies. Impression: 1. Acute fracture of the fifth metacarpal neck 2. Age-indeterminate fractures of the bases of the fourth and fifth finger proximal phalanges 3. Old fractures of the distal radius and ulna 4. Osteopenia ACT 112: Positive. There are findings on this exam that require communication between the performing entity and the patient following Patient Test Result Information Act ([place] ACT 112) guidelines. Electronically signed by Scotty Chery 11-28-2024 7:30 PM Discharge Plan Visit Data Chief Complaint: Illness Stated Complaint: ILLNESS, DIARHEA, SOB ED Provider: Carolyn Real Discharge Problem: Anemia requiring transfusions, Hypomagnesemia, Acute dyspnea, RSV infection, Fracture of fifth metacarpal bone of left hand, Acute hypokalemia, Acute hyponatremia Forms Stand Alone Forms: [facility] [employer] Prescriptions Prescriptions: No Action sertraline 100 mg tablet 100 mg PO DAILY pantoprazole 40 mg tablet,delayed release (DR/EC) 40 mg PO QAM metoprolol tartrate 50 mg tablet 50 mg PO BID folic acid 1 mg tablet 1 mg PO DAILY lisinopril 40 mg tablet 40 mg PO DAILY buspirone 15 mg tablet 15 mg PO BID polyethylene glycol 3350 [Miralax] 17 gram Powder In Packet 17 g PO DAILY PRN (Reason: constipation) Qty: 0 0RF magnesium oxide 400 mg (241.3 mg magnesium) Tablet 400 mg PO QAM Qty: 30 0RF amlodipine 2.5 mg tablet 2.5 mg PO QAM Qty: 30 0RF thiamine HCl (vitamin B1) 100 mg Tablet 100 mg PO QAM Qty: 30 0RF ergocalciferol (vitamin D2) 1,250 mcg (50,000 unit) Capsule 1,250 mcg PO Q7D Qty: 4 0RF Referrals Referrals: Shelli Ritter MD [Primary Care Provider] -
[2024-11-28 19:16] LABS: Albumin Level 2.5 gm/dl (3.4-5.0); BUN Creatinine Ratio 10.5 (10-20); Bilirubin,Total 0.8 mg/dl (0.2-1.0); Calcium 7.2 mg/dl (8.6-10.3); Creatinine Clr Calc Pharmacy 73.6 ml/min; Globulin 2.6 gm/dl (2.5-4.0); Magnesium 1.4 mg/dl (1.7-2.4); Potassium 3.3 mmol/L (3.5-5.1); Total Protein 5.1 gm/dl (6.0-8.3)
[2024-11-28 19:23] LABS: Troponin I High Sensitivity 5.8 pg/ml (0-14)
[2024-11-28 19:30] LABS: INR 1.1 (0.9-1.1); Prothrombin Time 11.5 Seconds (9.0-12.0)
--- NOTE | 2024-11-28 19:30 | XRay Report ---
Clinical History: Bruising after fall 4 views of the left hand are submitted for review. Findings: There is an acute fracture of the fifth metacarpal neck with mild displacement and angulation. There are age indeterminate fractures of the bases of the fourth and fifth finger proximal phalanges. There is deformity of the distal radial metaphysis, likely due to an old healed fracture. There is a suspected old nonunited fracture of the ulnar styloid process. No subluxation or dislocation is seen. There is osteopenia. There is mild osteoarthritis of the thumb carpometacarpal joint. No other osseous abnormality is identified. There are no radiopaque foreign bodies. Impression: 1. Acute fracture of the fifth metacarpal neck 2. Age-indeterminate fractures of the bases of the fourth and fifth finger proximal phalanges 3. Old fractures of the distal radius and ulna 4. Osteopenia ACT 112: Positive. There are findings on this exam that require communication between the performing entity and the patient following Patient Test Result Information Act ([place] ACT 112) guidelines. Electronically signed by Scotty Chery 11-28-2024 7:30 PM
[2024-11-28] MEDS ORDERED: SODIUM CHLORIDE 0.9% 100 ML IV PRN ×2 (19:33→21:01)
[2024-11-28 19:38] LABS: Influenza A virus by PCR Negative (Neg); Influenza B virus by PCR Negative (Neg); RSV by PCR Positive (Neg); SARS CoV2 RNA(COVID-19) Ceph NEGATIVE (Negative)
[2024-11-28] MEDS: OPTIRAY 320 100ml IV ONE (19:38)
--- NOTE | 2024-11-28 19:40 | XRay Report ---
Clinical History: Cough Technique: A frontal view of the chest was obtained Comparison is made to the prior examination dated 03/22/2024 Findings: There is new mild interstitial prominence in both lower lobes. The heart size is within normal limits. No pleural effusion or pneumothorax is seen. There is no definite pulmonary nodule. There is an unchanged right chest wall port with its tip in the lower SVC. There is an unchanged old right rib fracture. There is scoliosis. There is mild elevation of the left hemidiaphragm Impression: Possible bilateral lower lobe bronchopneumonia ACT 112: Positive. There are findings on this exam that require communication between the performing entity and the patient following Patient Test Result Information Act ([place] ACT 112) guidelines. Electronically signed by Scotty Chery 11-28-2024 7:36 PM
[2024-11-28] MEDS: SODIUM CHLORIDE 0.9% 1,000 ML IV ONE (19:43)
[2024-11-28] MEDS: MAGNESIUM SULFATE / D5W 1 GM/100 ML BAG IV STA (19:45)
[2024-11-28] MEDS: POTASSIUM CHLORIDE / WTR 10 MEQ/100 ML PLCT IV ONE (19:48)
--- NOTE | 2024-11-28 20:16 | CT Scan Report ---
EXAMINATION: Abdomen and pelvis CT with CLINICAL HISTORY: Diarrhea, history of colon cancer PRIORS: 03/22/2024 TECHNIQUE: Contiguous axial images were obtained through the abdomen and pelvis with the use of intravenous contrast. Sagittal and coronal reformations are supplied. FINDINGS: Mild tree-in-bud opacity present in the visualized left lung base.. Fatty infiltration of the liver noted. No hepatic masses identified. Possible small gallbladder polyp in the fundus, image 122, series 3 measuring 4 mm, unchanged. The portal vein, pancreas, spleen, under distended stomach, and adrenals are morphologically unremarkable. Moderate atherosclerotic disease of the abdominal aorta. IVC unremarkable. Kidneys enhance symmetrically. Urinary bladder distended with moderate wall thickening and perivesicular inflammatory change, increased in the interval. Circumferential wall thickening of the anus and rectum is noted, appearing in the interval, image 286, series 3 with moderate perirectal inflammatory change, increased. No discrete mass. Submucosal contrast enhancement noted. No significant amount of stool noted in the colon. Gas present in the transverse colon. No dilated loops of bowel or bowel obstruction. Mild diffuse induration of the mesentery noted with no soft tissue nodules or ascites. No extraluminal gas. Advanced osseous demineralization with sclerosis and lucency of the sacrum, not significantly changed. Moderate lumbar scoliosis, convex to the left with advanced degenerative change noted with multiple compression fractures, age-indeterminate. Underlying osseous metastases is not excluded and/or radiation change. IMPRESSION: 1. Circumferential wall thickening and edema involving the anus and rectum, appearing in the interval, compatible with Proctitis. Please correlate if there has been radiation to this area as it could represent radiation proctitis. Perirectal inflammatory change noted, increased. An underlying mass is not excluded. 2. Urinary bladder wall thickening with perivesicular inflammatory change, progressed in the interval. As above, this finding could represent cystitis secondary to radiation. 3. Advanced osseous demineralization and heterogeneously sclerotic appearance of the sacrum and multiple vertebral bodies with lumbar spine compression fractures. 4. Mild new tree-in-bud nodular attenuation in the left lung base representing bronchiolitis. ACT 112: Positive. There are findings on this examination that require communication between the performing entity and the patient following Patient Test Result Information Act ([place] ACT 112) guidelines. Electronically signed by Shawnee Sanchez 11-28-2024 8:16 PM
[2024-11-28 20:31] LABS: Hematocrit (blood only) 15.4 % (37.0-47.0); Hemoglobin 4.5 g/dl (12.0-16.0); Mean Corpuscular Hemoglobin 22.8 pg (25.0-34.0); Mean Corpuscular Hgb Conc 29.2 g/dL (32.0-36.0); Mean Corpuscular Volume 78.2 fL (80.0-100.0); Mean Platelet Volume 9.5 fL (9.4-12.4); Platelet Count 272 K/uL (130-400); RDW Coefficient of Variation 19.1 % (11.5-14.5); RDW Standard Deviation 51.2 fL (36.4-46.3); Red Blood Count 1.97 M/uL (4.20-5.40); White Blood Count 5.28 K/ul (4.8-10.8)
[2024-11-28 20:40] LABS: Immature Granulocytes # (auto) 0.03 K/uL (0.01-0.20); Immature Granulocytes % (auto) 0.6 %; Lymphocytes % (auto) 5.7 %; Monocytes # (auto) 0.31 K/uL (0.11-0.59); Monocytes % (auto) 5.9 %; Neutrophils # (auto) 4.64 K/uL (1.40-6.50); Neutrophils % (auto) 87.8 %; Polychromasia 1+
[2024-11-28 21:29] LABS: Appearance Urine Clear (Clear); Bilirubin Urine Negative (Negative); Blood Urine Negative (Negative); Color Urine Yellow; Glucose Urine UA Negative (Negative); Ketones Urine 3+ (Negative); Leukocyte Esterase Urine Negative (Negative); Nitrite Urine Negative (Negative); Protein Urine Negative (Negative); Specific Gravity Urine 1.034 (1.000-1.030); Urobilinogen Urine Negative (Negative); pH Urine 5.5 (4.5-7.5)
[2024-11-28] MEDS: PANTOprazole 40 MG in DEXTROSE 5% MINI-B 100 ML IV SCH (21:31)
[2024-11-28] MEDS: PANTOprazole 80 MG in DEXTROSE 5% 100 ML IV ONE (21:31)
[2024-11-28] MEDS: PANTOPRAZOLE BOLUS/DRIP IV STA (21:31)
--- NOTE | 2024-11-28 21:39 | History & Physical Report ---
Date of Service November 28, 2024 Assessment & Plan (1) Acute on chronic blood loss anemia: (2) RSV (respiratory syncytial virus pneumonia): (3) Acute hyponatremia: (4) Diarrheal disease: (5) Metabolic acidosis: (6) Acute hypokalemia: (7) Alcohol abuse: (8) Fracture of fifth metacarpal bone of left hand: (9) Hypomagnesemia: (10) Anemia requiring transfusions: (11) Rectal cancer: (12) Essential hypertension: Plan Patient is 59-year-old female critically ill with severe anemia due to acute on chronic blood loss in the setting of known rectal cancer that has not been completely treated or followed up. This is exacerbated by acute diarrheal illness causing significant electrolyte abnormalities in addition to chronic alcohol/beer use that can contribute to electrolyte abnormality as well as poor oral intake. She requires hospital level care for transfusions, electrolyte replacement and monitoring of laboratory studies and specialty consultation Admit to a monitored setting Patient has already been consented for blood transfusion and will be transfused 2 units of packed red blood cells, follow hemoglobin Aggressively replace electrolytes Anticipate her sodium and acidosis will improve as she is volume repleted with her blood. May need some additional IV fluids Consult GI, patient has not been compliant with for surveillance monitoring of her rectal/colon cancer. Concerning findings on CT scan. May need to undergo colonoscopy while here in the hospital Low suspicion for upper GI bleeding, will continue twice daily PPI Consult orthopedics for hand fracture Scheduled DuoNebs for her RSV pneumonia, received 1 dose of Solu-Medrol prehospital. Will hold on any additional steroids at this time and continue to evaluate Antitussives and mucolytics for symptom control At this time no obvious evidence of a bacterial infection, procalcitonin is low, chest x-ray findings consistent with a viral pneumonia will hold on any antibiotics at this time, continue to evaluate Stool BioFire and C. difficile have been ordered, sample has not yet been collected. Will continue her metoprolol with hold parameters, hold other blood pressure medications at this time, continue to monitor blood pressure Anemia evaluation include iron studies, TSH, B12, folate Monitor for alcohol withdrawal, as needed lorazepam Therapy evaluation Case management consult Nutrition consult History of Present Illness Chief Complaint: Severe weakness, fatigue and diarrhea Primary Care Provider: Shelli Ritter MD Patient is a 59-year-old female with known history of colorectal cancer status post radiation and partial treatment with chemotherapy. Also has chronic blood loss and iron deficiency anemia. Patient also has a history of significant alcoholism and associated hyponatremia. Presents to the emergency room with above complaints. She reports that she has been having diarrhea for almost 2 weeks she states that at times the stool has been bloody but no dark or tarry stool. She states that she has not been eating or drinking much over the last 2 weeks. In the emergency room was noted to be severely anemic and multiple electrolyte abnormalities. She also tested positive for RSV. She was referred to our service for further evaluation. Time my evaluation the patient was alert and able to answer questions appropriately. She confirms the above history. She states that she feels short of breath when she tried to do anything but no chest pain or chest pressure. She confirms that she has not been eating or drinking much over the past couple weeks. She states that usually she drinks 6- 9 beers on a daily basis however the last week is only been able to drink 1-2 beers because she has been so weak. She denies any fevers. However, she does admit to a productive cough and some shortness of breath. Does admit to some abdominal discomfort. No new problems that she has noticed with her urinary habits. No swelling in her hands arms legs or feet. She denies any recent antibiotic use. She did state that she fell out of bed did not hit her head but does have some significant hand pain. In the field she did receive IV Solu- Medrol and DuoNeb treatments prior to presentation to the ED. Allergies Allergy/AdvReac Type Severity Reaction Status Date / Time No Known Allergies Allergy Verified 03/22/24 17:36 Home Medications Medication Instructions Recorded Confirmed Type buspirone 15 mg tablet 15 mg PO BID 06/04/23 11/28/24 History folic acid 1 mg tablet 1 mg PO DAILY 06/04/23 11/28/24 History lisinopril 40 mg tablet 40 mg PO DAILY 06/04/23 11/28/24 History metoprolol tartrate 50 mg tablet 50 mg PO BID 06/04/23 11/28/24 History pantoprazole 40 mg tablet,delayed 40 mg PO QAM 06/04/23 11/28/24 History release sertraline 100 mg tablet 100 mg PO DAILY 06/04/23 11/28/24 History magnesium oxide 400 mg (241.3 mg 400 mg PO QAM #30 tabs 06/09/23 11/28/24 Rx magnesium) tablet Past Med/Surg History Problem List (Updated 11/28/24 @ 21:46 by Andry Peck DO) Diarrheal disease Metabolic acidosis RSV (respiratory syncytial virus pneumonia) Acute on chronic blood loss anemia Acute hyponatremia (Acute) Acute hypokalemia (Acute) Fracture of fifth metacarpal bone of left hand (Acute) RSV infection (Acute) Acute dyspnea (Acute) Hypomagnesemia (Acute) Anemia requiring transfusions (Acute) Nondisplaced fracture of fifth right metatarsal bone Right foot pain Hypokalemia (Acute) Weakness generalized (Acute) Frequent falls (Acute) T12 compression fracture Hypomagnesemia (Acute) Weakness (Acute) Closed fracture of right distal radius (Acute) Fall (Acute) Rectal cancer Bipolar affect, depressed Essential hypertension Acute electrocardiogram changes GI bleeding Alcohol abuse Acute GI bleeding (Acute) Anemia (Acute) Hyponatremia (Acute) Seizure (Chronic) Medical History History of peptic ulcer Feeling suicidal Depression Anxiety Fracture of lumbar spine Surgical History H/O colonoscopy H/O esophagogastroduodenoscopy S/P D&C (status post dilation and curettage) Family History Family/Other Cancer brain and lung from separate female cousins Social History Smoking Status: Former smoker Tobacco Type: Cigarettes Second Hand Exposure: No; Do You Dip or Chew Tobacco: No; Hx Alcohol Use: Yes Alcohol type: beer Alcohol Intake Frequency: 4 or More x per/Week Alcohol Intake Frequency Comment: 6-9 16oz beer/day Hx Substance Use: No Preferred Language: Macedonian Communication Ability: Effective Visual Impairment: No Limitations Hearing Ability: Normal Pharmacy Director Required: No Beliefs That Will Affect Care: None Current Living Situation: Spouse Current Living Situation Comment: Home current occupational status: unemployed Feels Safe at Home: Yes during the past year weight has: remained stable Assistive Devices: Glasses and Walker Review of Systems Review of Systems: Pertinent positive and negative review of systems as mentioned in the HPI Physical Exam Physical Exam: Constitutional: Alert, ill in appearance, nontoxic, extremely pale HEENT: Mucous membranes dry, sclera clear Neck: Soft, no adenopathy Lungs: Decreased breath sounds, poor airflow, diffuse rhonchi throughout, few expiratory wheezes CV: S1-S2, tachycardic, Irregular Abdomen: Soft, mild tenderness throughout, no guarding, no rigidity nondistended Extremities: No significant edema Musculoskeletal: Left hand tenderness Neuro: No focal deficits, diffusely weak Psych: Cooperative, normal mood Derm: Severely excoriated sacral, gluteal regions Results & Data Results & Data Vital Signs (Past 12 Hours) Vital Signs Temp Pulse Resp BP Pulse Ox O2 Del Method 11/28/24 19:07 108 H 21 100 Room Air 11/28/24 18:43 99 H 11/28/24 18:08 36.8 C 103 H 16 128/83 96 Room Air Diagnostic Findings Reviewed imaging, laboratory and diagnostic studies. Pertinent findings as below. Personally reviewed chest x-ray evidence of Port-A-Cath, some congestion right lower lobe Left hand x-ray showed multiple fractures CT of the abdomen consistent findings with radiation proctitis and cystitis. RSV positive Urinalysis negative for signs of infection, specific gravity 1.034 Procalcitonin 0.15 Lipase 45 AST 97 ALT 54 Alk phos 188 Magnesium 1.4 Calcium 7.2 Creatinine 0.57 Anion gap 16 Carbon oxide 14 Potassium 3.3 Sodium 126 Platelets 272 Hemoglobin 4.5 WBCs 5.2 Code Status & VTE Plan VTE Prophylaxis Plan VTE Prophylaxis will be ordered: Yes
[2024-11-28] MEDS: PANTOprazole 40 MG/10 ML SYR IV SCH (22:00)
[2024-11-28] MEDS: MAGNESIUM SULFATE / D5W 1 GM/100 ML BAG IV SCH (22:22)
[2024-11-28] MEDS: POTASSIUM CHLORIDE / WTR 10 MEQ/100 ML PLCT IV SCH (22:23)
[2024-11-28] MEDS: POTASSIUM CHLORIDE CRTAB 20 MEQ TABCR PO STA (22:29)
[2024-11-29] MEDS ORDERED: ONDANSETRON INJ 2 MG/ML 2 ML VIAL IV PRN (00:35)
[2024-11-29] MEDS ORDERED: ACETAMINOPHEN 325 MG TAB PO PRN (00:35)
[2024-11-29] MEDS ORDERED: LORazepam 2 MG/1 ML VIAL IV PRN (00:35)
[2024-11-29] MEDS ORDERED: LORazepam 1 MG TAB PO PRN (00:35)
[2024-11-29 01:15] LABS: Thyroid Stimulating Hormone 1.652 uIu/ml (0.300-4.500)
[2024-11-29 01:21] LABS: Ferritin 87.9 ng/ml (8-388)
[2024-11-29 02:09] LABS: Folate (Folic Acid),Ser orPlas > 22.30 ng/ml (>5.38); Vitamin B12 1057 pg/ml (180-914)
--- OUTSIDE RECORDS SUMMARY | 2024-11-29 02:17 | External Medical Summary | Summary of Care ---
Author Name Unknown Organization [facility] Address [address] [facility] [place] [address] Phone [phone] Care Team Providers Care Mechanical Supervisor Name Role Phone Vito Nelson MD Primary Care Provide r Reason for Visit * Reason Comments eRx-Medication Refill Encounter Details Date Type Department Care Team (Late st Contact Info) Description 11/14/2024 Refill Family Medicine [address] [id number] Vito Nelson MD [address] [place], [place] [address] [address] GENERALIZED ANXIETY DIS Allergies No known active allergiesdocumented as of this encounter (statuses as of 11/15/2024) Medications Udderly Smooth Extra Care 20 External CreamIndicatio ns:Rectal cancer (HCC) Apply topically to hands and feet 2 times a day 228 g 3 02/11/2023 1:31 PM EDT 02/11/20 23 Active Magnesium Oxide -Mg Supplement 400 (240 Mg) MG Oral Tablet (Mag-Ox)Indica tions:Hypomagn esemia TAKE 2 TABLETS BY MOUTH EVERY DAY 180 Tablet 1 04/30/20 24 Active busPIRone HCl 15 MG Oral Tablet (Buspar)Indica tions:Generali zed anxiety disorder TAKE 1 TABLET BY MOUTH IN THE MORNING AND BEFORE BEDTIME 180 Tablet 1 07/09/20 24 Active Pantoprazole Sodium 40 MG Oral Tablet Delayed Release (Protonix) TAKE 1 TABLET BY MOUTH EVERY DAY IN THE MORNING 90 Tablet 2 09/06/19 25 Active Lisinopril 40 MG Oral TabletIndicati ons:HTN, goal below 140/90 TAKE 1 TABLET BY MOUTH EVERY DAY 90 Tablet 2 09/06/19 25 Active Folic Acid 1 MG Oral Tablet TAKE 1 TABLET BY MOUTH EVERY DAY IN THE MORNING 90 Tablet 09/07/19 25 Active Metoprolol Tartrate 50 MG Oral Tablet (Lopressor)Ind ications:HTN, goal below 140/90 TAKE 1 TABLET BY MOUTH IN THE MORNING AND BEFORE BEDTIME 180 Tablet 10/02/19 25 Active Sertraline HCl 100 MG Oral Tablet (Zoloft)Indica tions:Generali zed anxiety disorder TAKE 1 TABLET BY MOUTH DAILY FOR ANXIETY/DEPRE SSION 90 Tablet 2 11/16/19 25 Active Sertraline HCl 100 MG Oral Tablet (Zoloft)Indica tions:Generali zed anxiety disorder TAKE 1 TABLET BY MOUTH DAILY FOR ANXIETY/DEPRE SSION 90 Tablet 3 11/06/19 24 025 Discontinued documented as of this encounter (statuses as of 11/15/2024) Active Problems Problem Noted Date Diagnosed Date History of rectal or anal cancer 04/24/2024 Other pancytopenia 06/24/2023 Compression fracture of T12 vertebra 06/24/2023 Closed fracture of lower end of right radius with routine healing 06/24/2023 Encounter for antineoplastic chemotherapy 2022 Rectal cancer 01/03/2023 Iron deficiency anemia due to chronic blood loss 01/03/2023 Senile osteoporosis 03/30/2022 Hypokalemia 10/28/2020 Ataxia 03/17/2018 Hypomagnesemia 10/30/2015 Hyponatremia 10/30/2015 Continuous chronic alcoholism 09/25/2013 HTN, GOAL BELOW 140/90 06/27/2009 Overview (06/27/2009): Modified per HTN Taxonomy. Generalized anxiety disorder 04/05/2008 History of radiation therapy documented as of this encounter (statuses as of 11/15/2024) Resolved Problems Problem Noted Date Diagnosed Date Resolved Date Alcohol withdrawal 06/29/2017 Bipolar disorder 11/26/2013 10/28/2020 Alcohol related seizure 11/26/201302/2020 HTN, goal below 140/90 04/05/200806/27 Overview (06/27/2009): Modified per HTN Taxonomy. Peptic ulcer 04/05/2008 08/28/2019 ADVANCE DIRECTIVE INFORMATION 10/20/2005 06/25/2024 Overview (10/20/2005): No, Advance Directive brochure offered , patient declined. documented as of this encounter (statuses as of 11/15/2024) Immunizations Name Administration Dates Next Due COVID-19 [...] 4 beers daily PHQ-2 Answer Date Recorded PHQ Adult Total Score 2 08/21/2024 Hunger Vital Sign Answer Date Recorded Within the past 12 months, y ou worried that your food would run out before you got the money to buy more. Never true 08/21/20 24 Within the past 12 months, t he food you bought just didn't last and you didn't have money to get more. Never true 08/21/2024 Childcare Answer Date Recorded Do you feel overwhelmed with taking care of a child, family member or friend? No 08/21/2024 Does your family need help f inding childcare? (Household - for ages 0-17 years) Not on file 08/21/2024 Clothing Answer Date Recorded Have you been unable to get clothing when it was really needed? No 08/21/2024 Is your family able to get c lothes or diapers when needed? (Household - for ages 0-17 years) Not on file 08/21/2024 Personal Safety Answer Date Recorded Do you feel unsafe or have concerns for your saf ety? No 08/21/2024 Do you have concerns for you r family's safety? (Household - for ages 0-17 years) Not on file 08/21/2024 Utilities Answer Date Recorded Do you have trouble paying y our heating, water, or electric bill? No 08/21/2024 Is your family able to pay t he heat, water, or electric bill? (Household - for ages 0-17 years) Not on file 08/21/2024 Does your family have access to good internet? (Household - for ages 0-17 years) Not on file 08/21/2024 Employment Status Answer Date Recorded Are you unemployed or without regular income? No 08/21/2024 Does the household have a re lar source of income? (Household - for ages 0-17 years) Not on file 08/21/2024 Social Connections Answer Date Recorded How often do you feel lonely or isolated from th ose around you? Never 08/21/2024 Financial Resource Strain Answer Date R ecorded Do you have any trouble payi ng for your medications, or do you think you might in the future? No 08/21/2024 Does your family have troubl e paying for medicine? (Household - for ages 0-17 years) Not on file 08/21/2024 Transportation Needs Answer Date Record ed Do you have trouble getting a ride to medical visits or work? (Adult - for ages 18 years and over) Not on file 08/21/2024 Does your family have a hard time getting a ride to doctors visits? (Household - for ages 0-17 years) Not on file 08/21/2024 Has lack of transportation k ept you from medical appointments, meetings, work, or from getting things needed for daily living? Check all that apply. No 08/21/2024 Do you (or your family) have trouble finding or paying for a ride (transportation)? (Household - for ages 0-17 years) Not on file 08/21/2024 Housing Stability Answer Date Recorded Do you currently live in a s helter or have no steady place to sleep at night? No 08/21/2024 Do you think you are at risk of becoming homeless? (Adult - for ages 18 years and over) Not on file 08/21/2024 Does your family worry about paying for your home or becoming homeless? (Household - for ages 0-17 years) Not on file 1 Are you homeless or worried that you might be in the future? No 08/21/2024 Are you (or your family) xena eless or worried that you might be in the future? (Household - for ages 0-17 years) Not on file Food Insecurity Answer Date Recorded Do you need food for this week? No 08/21/2024 Are you able to get enough f ood for your family? (Household - for ages 0-17 years) Not on file 08/21/2024 Does your family need food t his week? (Household - for ages 0-17 years) Not on file 08/21/2024 Do you always have enough fo od for your family? (Household - for ages 0-17 years) Not on file 08/21/2024 Food Insecurity Answer Date Recorded Within the past 12 months, y ou worried that your food would run out before you got the money to buy more. Never true 08/21/20 24 Within the past 12 months, t he food you bought just didn't last and you didn't have money to get more. Never true 08/21/2024 Do you need food for this week? 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 file Not on file Not on file documented as of this encounter Miscellaneous Notes * Telephone Encounter - Carl Reyes [facility] - 11/15/2024 11:15 AM EDT Signed Prescriptions: Disp Refills Sertraline HCl 100 MG Oral Tablet (Zoloft) 90 Tab*2 Sig: TAKE 1 TABLET BY MOUTH DAILY FOR ANXIETY/DEPRESSIONAuthorizing Provider: VITO NELSON User: CARL REYES documented in this encounter Plan of Treatment Upcoming Encounters Date Type Department Care Team (Late st Contact Info) Description 05/17/2025 10:20 AM EDT Office Visit Rheumatology [address] [place] [phone] Live Spann MD [address] [facility] [place], [place] [id number] Scheduled Procedures Name Priority Associated Diagnoses Date/Ti me COLONOSCOPY FLEXIBLE PROXIMAL DIAGNOSTIC Recall Rectal cancer (HCC) Health Maintenance Due Date Last Done Comments HPV/Co-Test 1993 Cologuard 01/27/2008 Fecal Occult Blood Test 01/27/2008 Sigmoidoscopy 01/27/2008 Zoster Vaccines (1 of 2) 2013 Cervical Cancer Screening 10/20/2013 Pap Smear 10/20/2013 10/20/2010 Pneumococcal Vaccine: 50+ Years (2 of 2 - PCV) 03/17/2019 03/17/2018 Mammogram 12/14/2023 12/13/2022, 11/21, 12/02/2020, Additional history exists COVID-19 Vaccine (3 - 2023- season) 2024 10/24/2020, 09/29/2020 Influenza Vaccine (FLU shot) (#1) 2024 GFR 04/27/2025 04/27/2024, 03/23, 11/02/2023, Additional history exists Depression Screening 08/21/2025 08/21/2024 Albumin/Creatinine Ratio 10/19/2025 10/19/2022 DXA Scan 04/17/2026 04/17/2024, 03/23, 03/30/2022 Lipid Panel 04/26/2028 04/26/2023, 02/20, 02/25/2011, Additional history exists DTap/Tdap Vaccines (3 - Td or Tdap) 08/28/2029 08/28/2019, 04/05/2008 Colonoscopy 12/27/2032 12/27/2022 Colorectal Cancer Screening 12/27/2032 VITAMIN D LEVEL ONCE IN A LIFETIME-USE SMARTSET# [id number] Completed 04/16/2024, 05/04/2021, 09/01/2010 HPV (Gardasil) Vaccine Aged Out No lo nger eligible based on patient's age to complete this topic Hepatitis B Vaccine Aged Out No longe r eligible based on patient's age to complete this topic MENINGOCOCCAL (MENACTRA/MENVEO) Aged Out No longer eligible based on patient's age to complete this topic Meningitis B Vaccine (Bexsero/Trumemba) Aged Out No longer eligible based on patient's age to complete this topic documented as of this encounter Medical Devices Implanted Type Area Type Cutter Device Identifier Shelf Expiration Date Model / Serial / Lot Power Port 8fr Sngl Lumen Plas - [id number] Implanted:Qty : 1 on 04/21/2023 by Artemio Bynum DO at OR [facility] Right: Chest CR BARD : PERIPHERAL VASCULAR 06/21/2024 [id number] / / [id number] Power Port 8fr Sngl Lumen Plas - [id number] Implanted:Qty : 1 on 04/21/2023 by Artemio Bynum DO at OR [facility] CR BARD : PERIPHERAL VASCULAR [id number] 06/21/2024 [id number] / / [id number] documented as of this encounter Visit Diagnoses Diagnosis GENERALIZED ANXIETY DIS Generalized anxiety disorder documented in this encounter Advance Directives Healthcare Agents on File Name Relationship Healthcare Agent Relationshi p Communication Olivier Root Spouse Health Care Repr esentative (appointed verbally by patient or by statute hierarchy) Care Teams Mechanical Supervisor Relationship Specialty Start Date End Date Vito Nelson MD [address] [place] [address] [place] [address] PCP - General Family Medicine 10/30/15 documented as of this encounter
--- OUTSIDE RECORDS SUMMARY | 2024-11-29 02:18 | External Medical Summary | Summary of Care ---
Author Name Unknown Organization [facility] Address [address] [facility] [place] [address] Phone [phone] Care Team Providers Care Dicer Machine Operator Name Role Phone Shelli Ritter MD Primary Care Provide r Reason for Visit * Reason Onset Date Comments No Show 09/26/2024 Encounter Details Date Type Department Care Team (Late st Contact Info) Description 09/26/2024 Telephone Hematology/Oncology [facility] [place] [address] [facility] [place] [address] Cuate Bow[facility] [address] No Show Allergies No known active allergiesdocumented as of this encounter (statuses as of 09/26/2024) Medications Udderly Smooth Extra Care 20 External CreamIndication s:Rectal cancer (HCC) Apply topically to hands and feet 2 times a day 228 g 3 02/11/2023 1:31 PM EDT 3 Active Metoprolol Tartrate 50 MG Oral Tablet (Lopressor)Rhonda cations:HTN, goal below 140/90 TAKE 1 TABLET BY MOUTH IN THE MORNING AND BEFORE BEDTIME 180 Tablet 3 4 Active Sertraline HCl 100 MG Oral Tablet (Zoloft)Indicat ions:Generalize d anxiety disorder TAKE 1 TABLET BY MOUTH DAILY FOR ANXIETY/DEPRES NICHO 90 Tablet 3 4 Active Magnesium Oxide -Mg Supplement 400 (240 Mg) MG Oral Tablet (Mag-Ox)Indicat ions:Hypomagnes emia TAKE 2 TABLETS BY MOUTH EVERY DAY 180 Tablet 1 4 Active busPIRone HCl 15 MG Oral Tablet (Buspar)Indicat ions:Generalize d anxiety disorder TAKE 1 TABLET BY MOUTH IN THE MORNING AND BEFORE BEDTIME 180 Tablet 1 4 Active Pantoprazole Sodium 40 MG Oral Tablet Delayed Release (Protonix) TAKE 1 TABLET BY MOUTH EVERY DAY IN THE MORNING 90 Tablet 2 5 Active Lisinopril 40 MG Oral TabletIndicatio ns:HTN, goal below 140/90 TAKE 1 TABLET BY MOUTH EVERY DAY 90 Tablet 2 5 Active Folic Acid 1 MG Oral Tablet TAKE 1 TABLET BY MOUTH EVERY DAY IN THE MORNING 90 Tablet 5 Active documented as of this encounter (statuses as of 09/26/2024) Active Problems Problem Noted Date Diagnosed Date [...] as of this encounter (statuses as of 09/26/2024) Resolved Problems Problem Noted Date Diagnosed Date Resolved Date Alcohol withdrawal 06/29/2017 0 Bipolar disorder 11/26/2013 10/28/2020 Alcohol related seizure 11/26/201302/2020 HTN, goal below 140/90 04/05/200806/27 Overview (06/27/2009): Modified per HTN Taxonomy. Peptic ulcer 04/05/2008 08/28/2019 ADVANCE DIRECTIVE INFORMATION 10/20/2005 06/25/2024 Overview (10/20/2005): No, Advance Directive brochure offered , patient declined. documented as of this encounter (statuses as of 09/26/2024) Immunizations Name Administration Dates Next Due COVID-19 [...] encounter Miscellaneous Notes * Telephone Encounter - Nellie Mohamud MED ASSIST - 09/26/2024 1:44 PM EST Pt did not show for her appointment 09/26/[address] Bowman. Please call to reschedule documented in this encounter Plan of Treatment Upcoming Encounters Date Type Department Care Team (Late st Contact Info) Description 05/17/2025 10:20 AM EDT Office Visit Rheumatology [address] [place] [address] Live Spann MD [address] [facility] [place], [place] [phone] Scheduled Procedures Name Priority Associated Diagnoses Date/Ti [...] 11/21, 12/02/2020, Additional history exists COVID-19 Vaccine ( - 2023- season) 2024 10/24/2020, 09/29/2020 Influenza [...] D LEVEL ONCE IN A LIFETIME-USE SMARTSET# 03720 Completed 04/16/2024, 05/04/2021, 09/01/2010 HPV (Gardasil) Vaccine Aged Out No lo nger eligible based on patient's age to complete this topic Hepatitis B Vaccine Aged Out No longe r eligible based on patient's age to complete this topic MENINGOCOCCAL (MENACTRA/MENVEO) Aged Out No longer eligible based on patient's age to complete this topic documented as of this encounter Medical Devices Implanted Type Area Pecan Cleaner Device Identifier Shelf Expiration Date Model / Serial / Lot Power Port 8fr Sngl Lumen Plas - [id number] Implanted:Qty : 1 on 04/21/2023 by Artemio Bynum DO at OR [facility] Right: Chest CR BARD : PERIPHERAL VASCULAR 06/21/2024 [id number] / / [id number] Power Port 8fr Sngl Lumen Plas - [id number] Implanted:Qty : 1 on 04/21/2023 by Artemio Bynum DO at OR [facility] CR BARD : PERIPHERAL VASCULAR [id number] 06/21/2024 [id number] / / [id number] documented as of this encounter Advance Directives Healthcare Agents on File Name Relationship Healthcare Agent Relationshi p Communication Olivier Root Spouse Health Care Repr esentative (appointed verbally by patient or by statute hierarchy) Care Teams Dicer Machine Operator Relationship Specialty Start Date End Date Shelli Ritter MD [address] [place] [address] [place] [phone] PCP - General Family Medicine 10/30/15 documented as of this encounter
--- OUTSIDE RECORDS SUMMARY | 2024-11-29 02:18 | External Medical Summary | Summary of Care ---
Author Name Unknown Organization [facility] Address [address] [facility] [place] [address] Phone [phone] Care Team Providers Care Goal Umpire Name Role Phone Vito Nelson MD Primary Care Provide r Reason for Visit * Reason Comments eRx-Medication Refill Encounter Details Date Type Department Care Team (Late st Contact Info) Description 09/30/2024 Refill Family Medicine [address] [address] Vito Nelson MD [address] [place], [place] [address] [id number] HTN, goal below 140/90 Allergies No known active allergiesdocumented as of this encounter (statuses as of 10/02/2024) Medications Udderly Smooth Extra Care 20 External CreamIndicatio ns:Rectal cancer (HCC) Apply topically to hands and feet 2 times a day 228 g 3 02/11/2023 1:31 PM EDT 02/11/20 23 Active Sertraline HCl 100 MG Oral Tablet (Zoloft)Indica tions:Generali zed anxiety disorder TAKE 1 TABLET BY MOUTH DAILY FOR ANXIETY/DEPRE SSION 90 Tablet 3 11/06/19 24 Active Magnesium Oxide -Mg Supplement 400 (240 [...] BEFORE BEDTIME 180 Tablet 10/02/19 25 Active Metoprolol Tartrate 50 MG Oral Tablet (Lopressor)Ind ications:HTN, goal below 140/90 TAKE 1 TABLET BY MOUTH IN THE MORNING AND BEFORE BEDTIME 180 Tablet 3 09/16/19 24 025 Discontinued documented as of this encounter (statuses as of 10/02/2024) Active Problems Problem Noted Date Diagnosed Date [...] as of this encounter (statuses as of 10/02/2024) Resolved Problems Problem Noted Date Diagnosed Date Resolved Date Alcohol withdrawal 06/29/2017 Bipolar disorder 11/26/2013 10/28/2020 Alcohol related seizure 11/26/201302/2020 HTN, goal below 140/90 04/05/200806/27 Overview (06/27/2009): Modified per HTN Taxonomy. Peptic ulcer 04/05/2008 08/28/2019 ADVANCE DIRECTIVE INFORMATION 10/20/2005 06/25/2024 Overview (10/20/2005): No, Advance Directive brochure offered , patient declined. documented as of this encounter (statuses as of 10/02/2024) Immunizations Name Administration Dates Next Due COVID-19 [...] Telephone Encounter - Vito Nelson MD - 10/02/2024 1:19 PM EST Signed Prescriptions: Disp Refills Metoprolol Tartrate 50 MG Oral Tablet (Lop*180 Ta*0 Sig: TAKE 1 TABLET BY MOUTH IN THE MORNING AND BEFORE BEDTIME Authorizing Provider: VITO NELSON * Telephone Encounter - Obinna Plummer CPhT - 10/02/2024 12:56 PM EST Pending Prescriptions: Disp Refills Metoprolol Tartrate 50 MG Oral Tablet (Lop*180 Ta*0 Sig: TAKE 1 TABLET BY MOUTH IN THE MORNING AND BEFORE BEDTIME * Telephone Encounter - Obinna Plummer CPhT - 10/02/2024 12:55 PM EST Received message from [facility] regarding patient needing an appointment. Call Placed, Left message on voicemail to call back and schedule appointment. Thank you, Tavo Plummer ([facility]) Horse Stud Worker III [facility] 10/02/2024, 12:55 PM * Telephone Encounter - Carl Reyes [facility] - 10/01/2024 10:21 AM EST Pending Prescriptions: Disp Refills Metoprolol Tartrate 50 MG Oral Tablet (Lop*180 Ta*0 Sig: TAKE 1 TABLET BY MOUTH IN THE MORNING AND BEFORE BEDTIME * Telephone Encounter - Carl Reyes [facility] - 10/01/2024 10:19 AM EST Please contact patient so that an appointment can be scheduled with her PRIMARY CARE provider before this refill can be authorized. After contacting patient, please forward request to Vito Nelson MD. Last Visit: 08/21/2024 - ACUTE (in office), Visit date not found (telemedicine) Next Visit: Visit date not found ThanksCarl, YeD Clinical Pharmacist [facility] [phone] 10/01/2024, 10:20 AM documented in this encounter Plan of Treatment Upcoming Encounters Date Type Department Care Team (Late st Contact Info) Description 05/17/2025 10:20 AM EDT Office Visit Rheumatology [address] [place] [address] [facility] [place] [address] Scheduled Procedures Name Priority Associated Diagnoses Date/Ti [...] D LEVEL ONCE IN A LIFETIME-USE SMARTSET# [id number] Completed 04/16/2024, 05/04/2021, 09/01/2010 HPV (Gardasil) Vaccine Aged Out No lo nger eligible based on patient's age to complete this topic Hepatitis B Vaccine Aged Out No longe r eligible based on patient's age to complete this topic MENINGOCOCCAL (MENACTRA/MENVEO) Aged Out No longer eligible based on patient's age to complete this topic documented as of this encounter Medical Devices Implanted Type Area Control Systems Eng Device Identifier Shelf Expiration Date Model / Serial / Lot Power Port 8fr Sngl Lumen Plas - [id number] Implanted:Qty : 1 on 04/21/2023 by Artemio Bynum DO at OR [facility] Right: Chest CR BARD : PERIPHERAL VASCULAR 06/21/2024 [id number] / / [id number] Power Port 8fr Sngl Lumen Plas - [id number] Implanted:Qty : 1 on 04/21/2023 by Artemio Bynum DO at OR [facility] CR BARD : PERIPHERAL VASCULAR [id number] 06/21/2024 [id number] / / [id number] documented as of this encounter Visit Diagnoses Diagnosis HTN, goal below 140/90 Unspecified essential hypertension documented in this encounter Advance Directives Healthcare Agents on File Name Relationship Healthcare Agent Relationshi p Communication Olivier Root Spouse Health Care Repr esentative (appointed verbally by patient or by statute hierarchy) Care Teams Goal Umpire Relationship Specialty Start Date End Date Vito Nelson MD [address] [place] [address] [place] [address] PCP - General Family Medicine 10/30/15 documented as of this encounter
--- OUTSIDE RECORDS SUMMARY | 2024-11-29 02:18 | External Medical Summary | Summary of Care ---
Author Name Unknown Organization [facility] [address] [facility] [address] Phone [phone] Care Team Providers Care Instructional Manager Name Role Phone Shelli Ritter MD Primary Care Provide r Reason for Visit * Reason Onset Date Comments Test Results 09/17/2024 Encounter Details Date Type Department Care Team (Late st Contact Info) Description 09/17/2024 Telephone Family Medicine [address] [address] Shelli Ritter MD [address] [place] [address] [place] [address] Test Results Allergies No known active allergiesdocumented as of this encounter (statuses as of 09/17/2024) Medications Udderly Smooth Extra Care 20 External [...] as of this encounter (statuses as of 09/17/2024) Active Problems Problem Noted Date Diagnosed Date [...] as of this encounter (statuses as of 09/17/2024) Resolved Problems Problem Noted Date Diagnosed Date Resolved Date Alcohol withdrawal 06/29/2017 0 Bipolar disorder 11/26/2013 10/28/2020 Alcohol related seizure 11/26/201302/2020 HTN, goal below 140/90 04/05/200806/27 Overview (06/27/2009): Modified per HTN Taxonomy. Peptic ulcer 04/05/2008 08/28/2019 ADVANCE DIRECTIVE INFORMATION 10/20/2005 06/25/2024 Overview (10/20/2005): No, Advance Directive brochure offered , patient declined. 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 * Telephone Encounter - Izzy Monsalve LPN - 09/17/2024 2:43 PM EST Attempted to call patient, there was no answer, left voicemail. When patient returns call, ok for INGE to relay message, please refer to below documentation. If needed, can transfer to dedicated nurse line. * Telephone Encounter - Elaina Holman CRNP - 09/17/2024 1:04 PM EST Please notify patient that her ultrasound was negative for any blood clots. Thanks! * Telephone Encounter - Indiana Posada OSA - 09/17/2024 9:24 AM EST Patient looking for test results of the ultrasound she had done last week documented in this encounter Plan of Treatment Upcoming Encounters Date Type Department Care Team (Late st Contact Info) Description 09/26/2024 11:30 AM EST [facility] [address] [facility] [place] [phone] Cuate Bowman MD [address] [place] [address] 05/17/2025 10:20 AM EDT Office Visit Rheumatology [address] [place] [phone] Live Spann MD [facility] [place] [address] Scheduled Procedures Name Priority Associated Diagnoses Date/Ti [...] D LEVEL ONCE IN A LIFETIME-USE SMARTSET# [id number] Completed 04/16/2024, 05/04/2021, 09/01/2010 HPV (Gardasil) Vaccine Aged Out No lo nger eligible based on patient's age to complete this topic Hepatitis B Vaccine Aged Out No longe r eligible based on patient's age to complete this topic MENINGOCOCCAL (MENACTRA/MENVEO) Aged Out No longer eligible based on patient's age to complete this topic documented as of this encounter Medical Devices Implanted Type Area Manager Beverage Device Identifier Shelf Expiration Date Model / Serial / Lot Power Port 8fr Sngl Lumen Plas - [id number] Implanted:Qty : 1 on 04/21/2023 by Artemio Bynum DO at OR [facility] Right: Chest CR BARD : PERIPHERAL VASCULAR 06/21/2024 [id number] / / [id number] Power Port 8fr Sngl Lumen Plas - [id number] Implanted:Qty : 1 on 04/21/2023 by Artemio Bynum DO at [facility] CR BARD : PERIPHERAL VASCULAR [id number] 06/21/2024 [id number] / / [id number] documented as of this encounter Advance Directives Healthcare Agents on File Name Relationship Healthcare Agent Relationshi p Communication Olivier Root Spouse Health Care Repr esentative (appointed verbally by patient or by statute hierarchy) Care Teams Instructional Manager Relationship Specialty Start Date End Date Shelli Ritter MD [address] [place] [address] [place] [phone] PCP - General Family Medicine 10/30/15 documented as of this encounter
--- OUTSIDE RECORDS SUMMARY | 2024-11-29 02:18 | External Medical Summary | Summary of Care ---
Author Name Unknown Organization [facility] [address] [facility] [place] [address] Phone [phone] Care Team Providers Care Breaker Boss Name Role Phone Shelli Ritter MD Primary Care Provide r Reason for Visit * Reason Onset Date Comments Test Results 09/17/2024 Encounter Details Date Type Department Care Team (Late st Contact Info) Description 09/17/2024 Telephone Family Medicine [address] [address] Shelli Ritter MD [address] [place] [address] [place] [address] Test Results Allergies No known active [...] encounter Miscellaneous Notes * Telephone Encounter - Javy Boone LPN - 09/17/2024 2:51 PM EST Patient aware and verbalized understanding. Patient was seen on 08/21 for LLE swelling and was advised to try compression socks and Elevation. She is elevating as directed, but returns during the day time. They had a discussion at OV of risk of taking diuretic due to frequent falls. She states her leg swelling is getting worse and going up to knee area. Denies drainage, or fevers warm to touch, or redness. She is requesting lasix since elevation and stocking is not effective. E [id number] [id number] [facility] Please contact patient with orders and advice. * Telephone Encounter - Erica Keane OSA [...] 09/26/2024 11:30 AM EST Office Visit Hematology/Oncology [facility] [place] 200 [facility] [place] [address] Cuate Bowman MD 200 [facility] [place] [address] 05/17/2025 10:20 AM EDT Office Visit Rheumatology [address] [place] [phone] Live Spann MD [facility] [place] [address] Scheduled Procedures Name Priority Associated Diagnoses Date/Ti [...] Additional history exists COVID-19 Vaccine (3 - season) 2024 10/24/2020, 09/29/2020 Influenza Vaccine (FLU [...] D LEVEL ONCE IN A LIFETIME-USE SMARTSET# [id number] Completed 04/16/2024, 05/04/2021, 09/01/2010 HPV (Gardasil) Vaccine Aged Out No lo nger eligible based on patient's age to complete this topic Hepatitis B Vaccine Aged Out No longe r eligible based on patient's age to complete this topic MENINGOCOCCAL (MENACTRA/MENVEO) Aged Out No longer eligible based on patient's age to complete this topic documented as of this encounter Medical Devices Implanted Type Area Undertaker Assistant Device Identifier Shelf Expiration Date Model / Serial / Lot Power Port 8fr Sngl Lumen Plas - [id number] Implanted:Qty : 1 on 04/21/2023 by Artemio Bynum DO at OR [facility] Right: Chest CR BARD : PERIPHERAL VASCULAR 06/21/2024 [id number] / / [id number] Power Port 8fr Sngl Lumen Plas - [id number] Implanted:Qty : 1 on 04/21/2023 by Artemio Bynum DO at OR [facility] CR BARD : PERIPHERAL VASCULAR [id number] 06/21/2024 [id number] / / [id number] documented as of this encounter Advance Directives Healthcare Agents on File Name Relationship Healthcare Agent Relationshi p Communication Olivier Root Spouse Health Care Repr esentative (appointed verbally by patient or by statute hierarchy) Care Teams Breaker Boss Relationship Specialty Start Date End Date Shelli Ritter MD [address] [place] [address] [place] [address] PCP - General Family Medicine 10/30/15 documented as of this encounter
--- OUTSIDE RECORDS SUMMARY | 2024-11-29 02:18 | External Medical Summary | Summary of Care ---
Author Name Unknown Organization [facility] Address [address] [facility] [address] Phone [phone] Care Team Providers Care Trolley Coach Driver Name Role Phone Shelli Ritter MD Primary Care Provide r Reason for Visit * Reason Onset Date Comments Test Results 09/17/2024 Encounter Details Date Type Department Care Team (Late st Contact Info) Description 09/17/2024 Telephone Family Medicine [address] [address] Shelli Ritter MD [address] [place] [address] [place] [address] Test Results Allergies No known active [...] PM EST Patient aware and verbalized understanding. She states her leg swelling is getting worse and going up to knee area. Denies drainage, or fevers warm to touch, or redness. She is requesting lasix [id number] Please contact patient with orders and advice. [...] 09/26/2024 11:30 AM EST Office Visit Hematology/Oncology [facility] 200 [facility] [place] [phone] Cuate Bowman MD 200 [facility] [place] [address] 05/17/2025 10:20 AM EDT Office Visit Rheumatology [address] [place] [phone] Live Spann MD [address] [place] [address] [place], [place] [address] Scheduled Procedures Name Priority Associated Diagnoses Date/Ti [...] D LEVEL ONCE IN A LIFETIME-USE SMARTSET# [id number] Completed 04/16/2024, 05/04/2021, 09/01/2010 HPV (Gardasil) Vaccine Aged Out No lo nger eligible based on patient's age to complete this topic Hepatitis B Vaccine Aged Out No longe r eligible based on patient's age to complete this topic MENINGOCOCCAL (MENACTRA/MENVEO) Aged Out No longer eligible based on patient's age to complete this topic documented as of this encounter Medical Devices Implanted Type Area Automatic Transmission Mechanic Device Identifier Shelf Expiration Date Model / Serial / Lot Power Port 8fr Sngl Lumen Plas - [id number] Implanted:Qty : 1 on 04/21/2023 by Artemio Bynum DO at OR [facility] Right: Chest CR BARD : PERIPHERAL VASCULAR 06/21/2024 [id number] / / [id number] Power Port 8fr Sngl Lumen Plas - [id number] Implanted:Qty : 1 on 04/21/2023 by Artemio Bynum DO at OR [facility] CR BARD : PERIPHERAL VASCULAR [id number] 06/21/2024 [id number] / / [id number] documented as of this encounter Advance Directives Healthcare Agents on File Name Relationship Healthcare Agent Relationshi p Communication Olivier Root Spouse Health Care Repr esentative (appointed verbally by patient or by statute hierarchy) Care Teams Trolley Coach Driver Relationship Specialty Start Date End Date Shelli Ritter MD [address] [place] [address] [place] [address] PCP - General Family Medicine 10/30/15 documented as of this encounter
--- OUTSIDE RECORDS SUMMARY | 2024-11-29 02:19 | External Medical Summary | Summary of Care ---
Author Name Unknown Organization [facility] Address [address] [facility] [place] [address] Phone [phone] Care Team Providers Care Certified Executive Chef Name Role Phone Shelli Ritter MD Primary Care Provide r Reason for Visit * Reason Onset Date Comments Scheduling 08/29/2024 Colonoscopy proc [facility] office. Encounter Details Date Type Department Care Team (Late st Contact Info) Description 08/29/2024 Telephone Gastroenterology, [facility] [address] [place] [address] Glenny Abebe DO [address] [place] [address] Scheduling (Colonoscopy procedure - [facility] ... Allergies No known active allergiesdocumented as of this encounter (statuses as of 08/30/2024) Medications Udderly Smooth Extra Care 20 External [...] ANXIETY/DEPRES NICHO 90 Tablet 3 4 Active Folic Acid 1 MG Oral Tablet TAKE 1 TABLET BY MOUTH EVERY DAY IN THE MORNING 90 Tablet 1 4 Active Pantoprazole Sodium 40 MG Oral Tablet Delayed Release (Protonix) TAKE 1 TABLET BY MOUTH EVERY DAY IN THE MORNING 90 Tablet 1 4 Active Lisinopril 40 MG Oral TabletIndicatio ns:HTN, goal below 140/90 TAKE 1 TABLET BY MOUTH EVERY DAY 90 Tablet 1 4 Active Magnesium Oxide -Mg Supplement 400 (240 Mg) MG Oral Tablet (Mag-Ox)Indicat ions:Hypomagnes emia TAKE 2 TABLETS BY MOUTH EVERY DAY 180 Tablet 1 4 Active busPIRone HCl 15 MG Oral Tablet (Buspar)Indicat ions:Generalize d anxiety disorder TAKE 1 TABLET BY MOUTH IN THE MORNING AND BEFORE BEDTIME 180 Tablet 1 4 Active documented as of this encounter (statuses as of 08/30/2024) Active Problems Problem Noted Date Diagnosed Date [...] as of this encounter (statuses as of 08/30/2024) Resolved Problems Problem Noted Date Diagnosed Date Resolved Date Alcohol withdrawal 06/29/2017 0 Bipolar disorder 11/26/2013 10/28/2020 Alcohol related seizure 11/26/201302/2020 HTN, goal below 140/90 04/05/200806/27 Overview (06/27/2009): Modified per HTN Taxonomy. Peptic ulcer 04/05/2008 08/28/2019 ADVANCE DIRECTIVE INFORMATION 10/20/2005 06/25/2024 Overview (10/20/2005): No, Advance Directive brochure offered , patient declined. documented as of this encounter (statuses as of 08/30/2024) Immunizations Name Administration Dates Next Due COVID-19 [...] encounter Miscellaneous Notes * Telephone Encounter - Beata Blair OSA - 08/30/2024 3:36 PM EST INGE Guy 08/30/2024 3:37 PM * Telephone Encounter - Cristina Mejia OSA - 08/29/2024 4:51 PM EST Patient looking to reschedule colonoscopy. Please call patient back at [phone]. She will be away from home on 08/30/24 until 1:30 pm (call after 1:30 pm) and is free all day Tuesday08/31/24 for a return phone call. Thank you! documented in this encounter Plan of Treatment Upcoming Encounters Date Type Department Care Team (Late st Contact Info) Description 09/26/2024 11:30 AM EST Office Visit Hematology/Oncology [address] [place] [phone] Cuate Bowman MD 200 [facility] [place] [address] 05/17/2025 10:20 AM EDT Office Visit Rheumatology [address] [place] [phone] Live Spann MD [facility] [place] [address] Scheduled Procedures Name Priority Associated Diagnoses Date/Ti [...] D LEVEL ONCE IN A LIFETIME-USE SMARTSET# [id number] Completed 04/16/2024, 05/04/2021, 09/01/2010 HPV (Gardasil) Vaccine Aged Out No lo nger eligible based on patient's age to complete this topic Hepatitis B Vaccine Aged Out No longe r eligible based on patient's age to complete this topic MENINGOCOCCAL (MENACTRA/MENVEO) Aged Out No longer eligible based on patient's age to complete this topic documented as of this encounter Medical Devices Implanted Type Area Flight Operation Coordinator Device Identifier Shelf Expiration Date Model / Serial / Lot Power Port 8fr Sngl Lumen Plas - [id number] Implanted:Qty : 1 on 04/21/2023 by Artemio Bynum DO at OR [facility] Right: Chest CR BARD : PERIPHERAL VASCULAR 06/21/2024 [id number] / / [id number] Power Port 8fr Sngl Lumen Plas - [id number] Implanted:Qty : 1 on 04/21/2023 by Artemio Bynum DO at OR [facility] CR BARD : PERIPHERAL VASCULAR [id number] 06/21/2024 [id number] / / [id number] documented as of this encounter Advance Directives Healthcare Agents on File Name Relationship Healthcare Agent Relationshi p Communication Olivier Root Spouse Health Care Repr esentative (appointed verbally by patient or by statute hierarchy) Care Teams Certified Executive Chef Relationship Specialty Start Date End Date Shelli Ritter MD [address] [place] [address] [place] [phone] PCP - General Family Medicine 10/30/15 documented as of this encounter
--- OUTSIDE RECORDS SUMMARY | 2024-11-29 02:19 | External Medical Summary | Summary of Care ---
Author Name Unknown Organization [facility] Address [address] [facility] [place] [address] Phone [phone] Care Team Providers Care Chemical Treatment Operator Name Role Phone Shelli Ritter MD Primary Care Provide r Encounter Details Date Type Department Care Team (Late st Contact Info) Description 09/10/2024 Population Health External Data Unspecified Department Allergies No known active allergiesdocumented as of this encounter (statuses as of 09/10/2024) Medications Udderly Smooth Extra Care 20 External [...] as of this encounter (statuses as of 09/10/2024) Active Problems Problem Noted Date Diagnosed Date [...] as of this encounter (statuses as of 09/10/2024) Resolved Problems Problem Noted Date Diagnosed Date Resolved Date Alcohol withdrawal 06/29/2017 0 Bipolar disorder 11/26/2013 10/28/2020 Alcohol related seizure 11/26/201302/2020 HTN, goal below 140/90 04/05/200806/27 Overview (06/27/2009): Modified per HTN Taxonomy. Peptic ulcer 04/05/2008 08/28/2019 ADVANCE DIRECTIVE INFORMATION 10/20/2005 06/25/2024 Overview (10/20/2005): No, Advance Directive brochure offered , patient declined. documented as of this encounter (statuses as of 09/10/2024) Immunizations Name Administration Dates Next Due COVID-19 [...] 08/21/2024 Does the household have a re gular [...] Upcoming Encounters Date Type Department Care Team (Latest Contact Info) Description 09/12/2024 11:15 AM EST Hospital Encounter ENDO O[facility], Endoscopy Room [facility] [address] [place] [phone] Glenny Abebe, DO [address] [place] [address] 09/12/2024 11:15 AM EST - 09/12/2024 11:45 AM EST Surgery ENDO [facility], Endoscopy Room [facility] [address] [place] [phone] Glenny Abebe, DO [address] [place] [address] COLONOSCOPY FLEXIBLE PROXIMAL DIAGNOSTIC 09/26/2024 11:30 AM EST Office Visit Hematology/Oncology [employer] [facility] [place] [phone] Cuate Bowman MD [address] [place] [address] 05/17/2025 10:20 AM EDT Office Visit Rheumatology [address] [place] [phone] Live Spann MD [address] [facility] [place] [address] Scheduled Procedures Name Priority Associated Diagnoses Date/Ti me COLONOSCOPY FLEXIBLE PROXIMA L DIAGNOSTIC Recall Rectal cancer (HCC) 09/12/2024 11:15 AM EST Health Maintenance Due Date Last Done Comments HPV/Co-Test 1993 Cologuard 01/27/2008 Fecal Occult Blood Test 01/27/2008 Sigmoidoscopy 01/27/2008 Zoster Vaccines (1 of 2) 2013 Cervical Cancer Screening 10/20/2013 Pap Smear 10/20/2013 10/20/2010 Pneumococcal Vaccine: 50+ Years (2 of 2 - PCV) 03/17/2019 03/17/2018 Mammogram 12/14/2023 12/13/2022, 11/21, 12/02/2020, Additional history exists COVID-19 Vaccine ( - season) 2024 10/24/2020, 09/29/2020 Influenza Vaccine [...] D LEVEL ONCE IN A LIFETIME-USE SMARTSET# 19405 Completed 04/16/2024, 05/04/2021, 09/01/2010 HPV (Gardasil) Vaccine Aged Out No lo nger eligible based on patient's age to complete this topic Hepatitis B Vaccine Aged Out No longe r eligible based on patient's age to complete this topic MENINGOCOCCAL (MENACTRA/MENVEO) Aged Out No longer eligible based on patient's age to complete this topic documented as of this encounter Medical Devices Implanted Type Area Disease And Insect Control Boss Device Identifier Shelf Expiration Date Model / Serial / Lot Power Port 8fr Sngl Lumen Plas - [id number] Implanted:Qty : 1 on 04/21/2023 by Artemio Bynum DO at OR [facility] Right: Chest CR BARD : PERIPHERAL VASCULAR 06/21/2024 [id number] / / [id number] Power Port 8fr Sngl Lumen Plas - [id number] Implanted:Qty : 1 on 04/21/2023 by Artemio Bynum DO at OR [facility] CR BARD : PERIPHERAL VASCULAR [id number] 06/21/2024 [id number] / / [id number] documented as of this encounter Advance Directives Healthcare Agents on File Name Relationship Healthcare Agent Relationshi p Communication Olivier Root Spouse Health Care Repr esentative (appointed verbally by patient or by statute hierarchy) Care Teams Chemical Treatment Operator Relationship Specialty Start Date End Date Shelli Ritter MD [address] [place] [address] [place] [phone] PCP - General Family Medicine 10/30/15 documented as of this encounter
--- OUTSIDE RECORDS SUMMARY | 2024-11-29 02:19 | External Medical Summary | Summary of Care ---
Author Name Unknown Organization [facility] Address [address] [facility] [place] [address] Phone [phone] Care Team Providers Care Java Front End Web Developer Name Role Phone Shelli Ritter MD Primary Care Provide r Reason for Visit * Reason Onset Date Comments Scheduling 08/29/2024 Colonoscopy proc [facility] office. Encounter Details Date Type Department Care Team (Late st Contact Info) Description 08/29/2024 Telephone Gastroenterology, [facility] [address] [place] [address] Glenny bAebe DO [address] [place] [address] Scheduling (Colonoscopy procedure - [facility] ... Allergies No known active allergiesdocumented as of this encounter (statuses as of 09/11/2024) Medications Udderly Smooth Extra Care 20 External CreamIndicatio ns:Rectal cancer (HCC) Apply topically to hands and feet 2 times a day 228 g 3 02/11/2023 1:31 PM EDT 02/11/20 23 Active Metoprolol Tartrate 50 MG Oral Tablet (Lopressor)Ind ications:HTN, goal below 140/90 TAKE 1 TABLET BY MOUTH IN THE MORNING AND BEFORE BEDTIME 180 Tablet 3 09/16/19 24 Active Sertraline HCl 100 MG Oral Tablet [...] BEDTIME 180 Tablet 1 07/09/20 24 Active Folic Acid 1 MG Oral Tablet TAKE 1 TABLET BY MOUTH EVERY DAY IN THE MORNING 90 Tablet 1 03/01/20 24 025 Discontinued Pantoprazole Sodium 40 MG Oral Tablet Delayed Release (Protonix) TAKE 1 TABLET BY MOUTH EVERY DAY IN THE MORNING 90 Tablet 1 03/01/20 24 025 Discontinued Lisinopril 40 MG Oral TabletIndicati ons:HTN, goal below 140/90 TAKE 1 TABLET BY MOUTH EVERY DAY 90 Tablet 1 03/02/20 24 025 Discontinued documented as of this encounter (statuses as of 09/11/2024) Active Problems Problem Noted Date Diagnosed Date [...] as of this encounter (statuses as of 09/11/2024) Resolved Problems Problem Noted Date Diagnosed Date Resolved Date Alcohol withdrawal 06/29/2017 Bipolar disorder 11/26/2013 10/28/2020 Alcohol related seizure 11/26/201302/2020 HTN, goal below 140/90 04/05/200806/27 Overview (06/27/2009): Modified per HTN Taxonomy. Peptic ulcer 04/05/2008 08/28/2019 ADVANCE DIRECTIVE INFORMATION 10/20/2005 06/25/2024 Overview (10/20/2005): No, Advance Directive brochure offered , patient declined. documented as of this encounter (statuses as of 09/11/2024) Immunizations Name Administration Dates Next Due COVID-19 [...] No 08/21/2024 Does the household have a [facility] source of income? (Household - for ages [...] Telephone Encounter - Beata Blair OSA - 09/11/2024 3:20 PM EST Lmm INGE Chen 09/11/2024 3:20 PM * Telephone Encounter - Opal Fox OSA - 09/10/2024 3:47 PM EST Pt returning call would like to reschedule procedure. Thank you * Telephone Encounter - Beata Blair OSA - 08/30/2024 3:36 PM EST Line INGE Ascencio 08/30/2024 3:37 PM * Telephone Encounter - Cristina Mejia OSA - 08/29/2024 4:51 PM EST Patient looking to reschedule colonoscopy. Please call patient back at [phone]. She will be away from home on 08/30/24 until 1:30 pm (call after 1:30 pm) and is free all day Tuesday08/31/24 for a return phone call. Thank you! documented in this encounter Plan of Treatment Upcoming Encounters Date Type Department Care Team (Late st Contact Info) Description 09/13/2024 10:30 AM EST Imaging Radiology [address] [place] [address] 09/26/2024 11:30 AM EST Office Visit Hematology/Oncology [facility] 200 [facility] [place] [phone] Cuate Bowman MD 200 [facility] [place] [address] 05/17/2025 10:20 AM EDT Office Visit Rheumatology [address] [place] [phone] Live Spann MD [address] [place] [address] [place] [address] Scheduled Procedures Name Priority Associated Diagnoses Date/Ti [...] D LEVEL ONCE IN A LIFETIME-USE SMARTSET# [id number] Completed 04/16/2024, 05/04/2021, 09/01/2010 HPV (Gardasil) Vaccine Aged Out No lo nger eligible based on patient's age to complete this topic Hepatitis B Vaccine Aged Out No longe r eligible based on patient's age to complete this topic MENINGOCOCCAL (MENACTRA/MENVEO) Aged Out No longer eligible based on patient's age to complete this topic documented as of this encounter Medical Devices Implanted Type Area Publicity Consultant Device Identifier Shelf Expiration Date Model / Serial / Lot Power Port 8fr Sngl Lumen Plas - [id number] Implanted:Qty : 1 on 04/21/2023 by Artemio Bynum DO at OR [facility] Right: Chest CR BARD : PERIPHERAL VASCULAR 06/21/2024 [id number] / / [id number] Power Port 8fr Sngl Lumen Plas - [id number] Implanted:Qty : 1 on 04/21/2023 by Artemio Bynum DO at OR [facility] CR BARD : PERIPHERAL VASCULAR [id number] 06/21/2024 [id number] / / [id number] documented as of this encounter Advance Directives Healthcare Agents on File Name Relationship Healthcare Agent Relationshi p Communication Olivier Root Spouse Health Care Repr esentative (appointed verbally by patient or by statute hierarchy) Care Teams Java Front End Web Developer Relationship Specialty Start Date End Date Shelli Ritter MD [address] [place] [address] [place] [phone] PCP - General Family Medicine 10/30/15 documented as of this encounter
--- OUTSIDE RECORDS SUMMARY | 2024-11-29 02:19 | External Medical Summary | Summary of Care ---
Author Name Unknown Organization [facility] [address] [facility] [address] Phone [phone] Care Team Providers Care Distributor Publications Name Role Phone Shelli Ritter MD Primary Care Provide r Reason for Visit * Reason Onset Date Comments Test Results 09/17/2024 Encounter Details Date Type Department Care Team (Late st Contact Info) Description 09/17/2024 Telephone Family Medicine [address] [phone] Shelli Ritter MD [address] [place] [address] [place] [address] Test Results Allergies No known active [...] encounter Miscellaneous Notes * Telephone Encounter - Elaina Holman CRNP [...] 11:30 AM EST Office Visit Hematology/Oncology [facility] [address] [place] [phone] Cuate Bowman MD [address] [place] [address] 05/17/2025 10:20 AM EDT Office Visit Rheumatology [address] [place] [phone] Live Spann MD [address] [place] [address] [place] [address] Scheduled Procedures Name Priority Associated Diagnoses Date/Ti [...] D LEVEL ONCE IN A LIFETIME-USE SMARTSET# [id number] Completed 04/16/2024, 05/04/2021, 09/01/2010 HPV (Gardasil) Vaccine Aged Out No lo nger eligible based on patient's age to complete this topic Hepatitis B Vaccine Aged Out No longe r eligible based on patient's age to complete this topic MENINGOCOCCAL (MENACTRA/MENVEO) Aged Out No longer eligible based on patient's age to complete this topic documented as of this encounter Medical Devices Implanted Type Area Molder Shoulder Pad Device Identifier Shelf Expiration Date Model / Serial / Lot Power Port 8fr Sngl Lumen Plas - [id number] Implanted:Qty : 1 on 04/21/2023 by Artemio Bynum DO at OR [facility] Right: Chest CR BARD : PERIPHERAL VASCULAR 06/21/2024 [id number] / / [id number] Power Port 8fr Sngl Lumen Plas - [id number] Implanted:Qty : 1 on 04/21/2023 by Artemio Bynum DO at OR [facility] CR BARD : PERIPHERAL VASCULAR [id number] 06/21/2024 [id number] / / [id number] documented as of this encounter Advance Directives Healthcare Agents on File Name Relationship Healthcare Agent Relationshi p Communication Olivier Root Spouse Health Care Repr esentative (appointed verbally by patient or by statute hierarchy) Care Teams Distributor Publications Relationship Specialty Start Date End Date Shelli Ritter MD [address] [place] [address] [place] [phone] PCP - General Family Medicine 10/30/15 documented as of this encounter
--- OUTSIDE RECORDS SUMMARY | 2024-11-29 02:19 | External Medical Summary | Summary of Care ---
Author Name Unknown Organization [facility] Address [address] [facility] [place] [address] Phone [phone] Care Team Providers Care Interior Wall Assembler Name Role Phone Shelli Ritter MD Primary Care Provide r Reason for Visit * Reason Onset Date Comments Scheduling 08/29/2024 Colonoscopy proc [facility] office. Encounter Details Date Type Department Care Team (Late st Contact Info) Description 08/29/2024 Telephone Gastroenterology, [facility] [address] [place] [address] Glenny Abebe DO [address] [place] [address] Scheduling (Colonoscopy procedure - [facility] ... Allergies No known active allergiesdocumented [...] No 08/21/2024 Does the household have a [facility] source of income? (Household - for ages [...] encounter Miscellaneous Notes * Telephone Encounter - Opal Fox OSA - 09/10/2024 3:47 PM EST Pt returning call would like to reschedule procedure. Thank you * Telephone Encounter - Beata Blair, INGE - 08/30/2024 3:36 PM EST INGE Guy 08/30/2024 3:37 PM * Telephone Encounter - Cristina Mejia, INGE - 08/29/2024 4:51 PM EST Patient looking to reschedule colonoscopy. Please call patient back at [phone]. She will be away from home on 08/30/24 until 1:30 pm (call after 1:30 pm) and is free all day Tuesday08/31/24 for a return phone call. Thank you! documented in this encounter Plan of Treatment Upcoming Encounters Date Type Department Care Team (Late st Contact Info) Description 09/13/2024 10:30 AM EST Imaging Radiology [address] [place] [address] 09/26/2024 11:30 AM EST Office Visit Hematology/Oncology [facility] [address] [facility] [place] [phone] Cuate Bowman MD [address] [facility] [place] [address] 05/17/2025 10:20 AM EDT Office Visit Rheumatology [address] [place] [phone] Live Spann MD [address] [place] [address] [place] [address] Scheduled Procedures Name Priority Associated Diagnoses Date/Ti [...] D LEVEL ONCE IN A LIFETIME-USE SMARTSET# 23158 Completed 04/16/2024, 05/04/2021, 09/01/2010 HPV (Gardasil) Vaccine Aged Out No lo nger eligible based on patient's age to complete this topic Hepatitis B Vaccine Aged Out No longe r eligible based on patient's age to complete this topic MENINGOCOCCAL (MENACTRA/MENVEO) Aged Out No longer eligible based on patient's age to complete this topic documented as of this encounter Medical Devices Implanted Type Area Supervisor Meter Shop Device Identifier Shelf Expiration Date Model / Serial / Lot Power Port 8fr Sngl Lumen Plas - [id number] Implanted:Qty : 1 on 04/21/2023 by Artemio Bynum DO at OR [facility] Right: Chest CR BARD : PERIPHERAL VASCULAR 06/21/2024 [id number] / / [id number] Power Port 8fr Sngl Lumen Plas - [id number] Implanted:Qty : 1 on 04/21/2023 by Artemio Bynum DO at OR [facility] CR BARD : PERIPHERAL VASCULAR [id number] 06/21/2024 [id number] / / [id number] documented as of this encounter Advance Directives Healthcare Agents on File Name Relationship Healthcare Agent Relationshi p Communication Olivier Root Spouse Health Care Repr esentative (appointed verbally by patient or by statute hierarchy) Care Teams Interior Wall Assembler Relationship Specialty Start Date End Date Shelli Ritter MD [address] [place] [address] [place] [address] PCP - General Family Medicine 10/30/15 documented as of this encounter
--- OUTSIDE RECORDS SUMMARY | 2024-11-29 02:19 | External Medical Summary | Summary of Care ---
Author Name Unknown Organization [facility] [address] [address] Phone [phone] Care Team Providers Care Rock Contractor Name Role Phone Vito Nelson MD Primary Care Provide r Reason for Visit * Reason Comments eRx-Medication Refill Encounter Details Date Type Department Care Team (Late st Contact Info) Description 09/07/2024 Refill Family Medicine [address] [address] Vito Nelson MD [address] [place], [place] [address] [id number] Allergies No known active allergiesdocumented as of [...] THE MORNING 90 Tablet 09/07/19 25 Active Folic Acid 1 MG Oral Tablet TAKE 1 TABLET BY MOUTH EVERY DAY IN THE MORNING 90 Tablet 1 03/01/20 24 025 Discontinued documented as of this [...] Bipolar disorder 11/26/2013 10/28/2020 Alcohol related seizure 11/26/20130 02/2020 HTN, goal below 140/90 04/05/200806/27 Overview (06/27/2009): [...] encounter Miscellaneous Notes * Telephone Encounter - Little Mosqueda - 09/11/2024 6:34 PM EST Received message from [facility] regarding patient needing an appointment. Patient was notified. Successfully contacted patient and provided [facility] message. * Telephone Encounter - Calderon Cristina [facility] - 09/07/2024 10:02 AM ESTSigned Prescriptions: Disp Refills Folic Acid 1 MG Oral Tablet 90 Tab*0 Sig: TAKE 1 TABLET BY MOUTH EVERY DAY IN THE MORNING Authorizing Provider: VITO NELSON Ordering User: CALDERON CRISTINA * Telephone Encounter - Calderon Cristina [facility] - 09/07/2024 10:01 AM EST Please contact patient so that an appointment can be scheduled with her PRIMARY CARE provider. Refill authorized to hold patient over in the mean time. Last Visit: 08/21/2024 ACUTE (in office), Visit date not found (telemedicine) Next Visit: Visit date not found Calderon Vieira Pharm.D. Clinical Pharmacist [facility] [phone] 09/07/2024, 10:02 AM documented in this encounter Plan of Treatment Upcoming Encounters Date Type Department Care Team (Late st Contact Info) Description 09/13/2024 10:30 AM EST Imaging Radiology [address] [place] [address] 09/26/2024 11:30 AM EST Office Visit Hematology/Oncology [facility] [place] [address] [facility] [place] [address] Cuate Bowman MD [address] [facility] [place] [address] 05/17/2025 10:20 AM EDT Office Visit Rheumatology [address] [place] [phone] Live Spann MD [address] [place] [address] [place] [address] Scheduled Procedures Name Priority Associated Diagnoses Date/Ti [...] 12/02/2020, Additional history exists COVID-19 Vaccine ( season) 2024 10/24/2020, 09/29/2020 Influenza Vaccine (FLU [...] D LEVEL ONCE IN A LIFETIME-USE SMARTSET# [id number] Completed 04/16/2024, 05/04/2021, 09/01/2010 HPV (Gardasil) Vaccine Aged Out No lo nger eligible based on patient's age to complete this topic Hepatitis B Vaccine Aged Out No longe r eligible based on patient's age to complete this topic MENINGOCOCCAL (MENACTRA/MENVEO) Aged Out No longer eligible based on patient's age to complete this topic documented as of this encounter Medical Devices Implanted Type Area Pot Maker Device Identifier Shelf Expiration Date Model / Serial / Lot Power Port 8fr Sngl Lumen Plas - [id number] Implanted:Qty : 1 on 04/21/2023 by Artemio Bynum DO at OR [facility] Right: Chest CR BARD : PERIPHERAL VASCULAR 06/21/2024 [id number] / / [id number] Power Port 8fr Sngl Lumen Plas - [id number] Implanted:Qty : 1 on 04/21/2023 by Artemio Bynum DO at OR [facility] CR BARD : PERIPHERAL VASCULAR [id number] 06/21/2024 [id number] / / [id number] documented as of this encounter Advance Directives Healthcare Agents on File Name Relationship Healthcare Agent Relationshi p Communication Olivier Root Spouse Health Care Repr esentative (appointed verbally by patient or by statute hierarchy) Care Teams Rock Contractor Relationship Specialty Start Date End Date Vito Nelson MD [address] [place] [address] [place] [address] PCP - General Family Medicine 10/30/15 documented as of this encounter
--- OUTSIDE RECORDS SUMMARY | 2024-11-29 02:19 | External Medical Summary | Summary of Care ---
Author Name Unknown Organization [facility] Address [address] [facility] [place] [address] Phone [phone] Care Team Providers Care Development Coach Name Role Phone Shelli Ritter MD Primary Care Provide r Reason for Visit * Reason Onset Date Comments Scheduling 08/29/2024 Colonoscopy proc [facility] office. Encounter Details Date Type Department Care Team (Late st Contact Info) Description 08/29/2024 Telephone Gastroenterology, [facility] [address] [place] [address] Glenny Abebe DO [address] [place] [address] Scheduling (Colonoscopy procedure - [facility] ... Allergies No known active allergiesdocumented [...] No 08/21/2024 Does the household have a [facility] source [facility] income? (Household - for ages [...] encounter Miscellaneous Notes * Telephone Encounter - Betaa Blair OSA - 09/17/2024 11:41 AM EST [facility] Letter sent INGE [place] 09/17/2024 11:41 AM * Telephone Encounter - Beata Blair OSA - 09/11/2024 3:20 PM EST [facility] [place] 09/11/2024 3:20 PM * Telephone Encounter - Opal Fox OSA - 09/10/2024 3:47 PM EST Pt returning call would like to reschedule procedure. Thank you * Telephone Encounter - Beata Blair, INGE - 08/30/2024 3:36 PM EST Line busy INGE Chen 08/30/2024 3:37 PM * Telephone Encounter - Cristina Mejia OSA - 08/29/2024 4:51 PM EST Patient looking to reschedule colonoscopy. Please call patient back at [phone]. She will be away from home on 08/30/24 until 1:30 pm (call after 1:30 pm) and is free all day Tuesday08/31/24 for a return phone call. Thank you! documented in this encounter Plan of Treatment Upcoming Encounters Date Type Department Care Team (Late st Contact Info) Description 09/26/2024 11:30 AM EST Office Visit Hematology/Oncology [facility] [address] [facility] [place] [address] Cuate Bowman MD [address] [facility] [place] [address] 05/17/2025 10:20 AM EDT Office Visit Rheumatology [address] [place] [phone] Live Spann MD [address] [facility] [address] Scheduled Procedures Name Priority Associated Diagnoses Date/Ti [...] D LEVEL ONCE IN A LIFETIME-USE SMARTSET# [id number] Completed 04/16/2024, 05/04/2021, 09/01/2010 HPV (Gardasil) Vaccine Aged Out No lo nger eligible based on patient's age to complete this topic Hepatitis B Vaccine Aged Out No longe r eligible based on patient's age to complete this topic MENINGOCOCCAL (MENACTRA/MENVEO) Aged Out No longer eligible based on patient's age to complete this topic documented as of this encounter Medical Devices Implanted Type Area Intervention Teacher Device Identifier Shelf Expiration Date Model / Serial / Lot Power Port 8fr Sngl Lumen Plas - [id number] Implanted:Qty : 1 on 04/21/2023 by Artemio Bynum, DO at OR [facility] Right: Chest CR BARD : PERIPHERAL VASCULAR 06/21/2024 [id number] / / [id number] Power Port 8fr Sngl Lumen Plas - [id number] Implanted:Qty : 1 on 04/21/2023 by Artemio Bynum DO at OR [facility] BARD : PERIPHERAL VASCULAR [id number] 06/21/2024 [id number] / / [id number] documented as of this encounter Advance Directives Healthcare Agents on File Name Relationship Healthcare Agent Relationshi p Communication Olivier Root Spouse Health Care Repr esentative (appointed verbally by patient or by statute hierarchy) Care Teams Development Coach Relationship Specialty Start Date End Date Shelli Ritter MD [address] [place] [address] [place] [address] PCP - General Family Medicine 10/30/15 documented as of this encounter
--- OUTSIDE RECORDS SUMMARY | 2024-11-29 02:19 | External Medical Summary | Summary of Care ---
Author Name Unknown Organization [facility] Address [address] [facility] [place] [address] Phone [phone] Care Team Providers Care Technology Sales Specialist Name Role Phone Shelli Ritter MD Primary Care Provide r Reason for Visit * Reason Onset Date Comments Scheduling 08/29/2024 Colonoscopy proc [facility] office. Encounter Details Date Type Department Care Team (Late st Contact Info) Description 08/29/2024 Telephone Gastroenterology, [facility] [address] [place] [address] Glenny Abebe DO [address] [place] [address] Scheduling (Colonoscopy procedure - [facility] ... Allergies No known active allergiesdocumented as of this encounter (statuses as of 08/29/2024) Medications Udderly Smooth Extra Care 20 External [...] 1 TABLET BY MOUTH DAILY FOR ANXIETY/DEPRES NCIHO 90 Tablet 3 4 Active Folic Acid [...] as of this encounter (statuses as of 08/29/2024) Active Problems Problem Noted Date Diagnosed Date [...] as of this encounter (statuses as of 08/29/2024) Resolved Problems Problem Noted Date Diagnosed Date Resolved Date Alcohol withdrawal 06/29/2017 0 Bipolar disorder 11/26/2013 10/28/2020 Alcohol related seizure 11/26/201302/2020 HTN, goal below 140/90 04/05/200806/27 Overview (06/27/2009): Modified per HTN Taxonomy. Peptic ulcer 04/05/2008 08/28/2019 ADVANCE DIRECTIVE INFORMATION 10/20/2005 06/25/2024 Overview (10/20/2005): No, Advance Directive brochure offered , patient declined. documented as of this encounter (statuses as of 08/29/2024) Immunizations Name Administration Dates Next Due COVID-19 [...] encounter Miscellaneous Notes * Telephone Encounter - Cristina Mejia OSA - 08/29/2024 4:51 PM EST Patient looking to reschedule colonoscopy. Please call patient back at [phone]. She will be away from home on 08/30/24 until 1:30 pm (call after 1:30 pm) and is free all day Tuesday08/31/24 for a return phone call. Thank you! documented in this encounter Plan of Treatment Upcoming Encounters Date Type Department Care Team (Late st Contact Info) Description 08/30/2024 11:15 AM EST Imaging Radiology [address] [place] [phone] 09/26/2024 11:30 AM EST Office Visit Hematology/Oncology [facility] [place] [address] [place] [phone] Cuate Bowman MD 200 [place] [address] 05/17/2025 10:20 AM EDT Office Visit Rheumatology [address] [place] [address] Live Spann MD [address] [employer] [place] [address] Scheduled Procedures Name Priority Associated Diagnoses Date/Ti [...] D LEVEL ONCE IN A LIFETIME-USE SMARTSET# [id number] Completed 04/16/2024, 05/04/2021, 09/01/2010 HPV (Gardasil) Vaccine Aged Out No lo nger eligible based on patient's age to complete this topic Hepatitis B Vaccine Aged Out No longe r eligible based on patient's age to complete this topic MENINGOCOCCAL (MENACTRA/MENVEO) Aged Out No longer eligible based on patient's age to complete this topic documented as of this encounter Medical Devices Implanted Type Area Video Manager Device Identifier Shelf Expiration Date Model / Serial / Lot Power Port 8fr Sngl Lumen Plas - [id number] Implanted:Qty : 1 on 04/21/2023 by Artemio Bynum DO at OR [facility] Right: Chest CR BARD : PERIPHERAL VASCULAR 06/21/2024 [id number] / / [id number] Power Port 8fr Sngl Lumen Plas - [id number] Implanted:Qty : 1 on 04/21/2023 by Artemio Bynum DO at OR [facility] CR BARD : PERIPHERAL VASCULAR [id number] 06/21/2024 [id number] / / [id number] documented as of this encounter Advance Directives Healthcare Agents on File Name Relationship Healthcare Agent Relationshi p Communication Olivier Root Spouse Health Care Repr esentative (appointed verbally by patient or by statute hierarchy) Care Teams Technology Sales Specialist Relationship Specialty Start Date End Date Shelli Ritter MD [address] [place] [address] [place] [address] PCP - General Family Medicine 10/30/15 documented as of this encounter
--- OUTSIDE RECORDS SUMMARY | 2024-11-29 02:19 | External Medical Summary | Summary of Care ---
Author Name Unknown Organization [facility] [address] [facility] [address] Phone [phone] Care Team Providers Care Reading Coach Name Role Phone Shelli Ritter MD Primary Care Provide r Reason for Visit * Reason Onset Date Comments Test Results 09/17/2024 Encounter Details Date Type Department Care Team (Late st Contact Info) Description 09/17/2024 Telephone Family Medicine [address] [address] Shelli Ritter MD [address] [place] [address] [place] [address] Test Results Allergies No known [...] encounter Miscellaneous Notes * Telephone Encounter - Izzy Monsalve LPN [...] 09/26/2024 11:30 AM EST Office Visit Hematology/Oncology [facility] [place] [address] [facility] [place] [address] Cuate Bowman MD [address] [place] [address] 05/17/2025 10:20 AM EDT Office Visit Rheumatology [address] [place] [phone] Live Spann MD [facility] [email or web address] [address] [place], [place] [address] Scheduled Procedures Name Priority Associated Diagnoses Date/Ti [...] D LEVEL ONCE IN A LIFETIME-USE SMARTSET# 65712 Completed 04/16/2024, 05/04/2021, 09/01/2010 HPV (Gardasil) Vaccine Aged Out No lo nger eligible based on patient's age to complete this topic Hepatitis B Vaccine Aged Out No longe r eligible based on patient's age to complete this topic MENINGOCOCCAL (MENACTRA/MENVEO) Aged Out No longer eligible based on patient's age to complete this topic documented as of this encounter Medical Devices Implanted Type Area Nuisance Wildlife Trapper Device Identifier Shelf Expiration Date Model / Serial / Lot Power Port 8fr Sngl Lumen Plas - [id number] Implanted:Qty : 1 on 04/21/2023 by Artemio Bynum DO at OR [facility] Right: Chest CR BARD : PERIPHERAL VASCULAR 06/21/2024 [id number] / / [id number] Power Port 8fr Sngl Lumen Plas - [id number] Implanted:Qty : 1 on 04/21/2023 by Artemio Bynum DO at OR [facility] CR BARD : PERIPHERAL VASCULAR [id number] 06/21/2024 [id number] / / [id number] documented as of this encounter Advance Directives Healthcare Agents on File Name Relationship Healthcare Agent Relationshi p Communication Olivier Root Spouse Health Care Repr esentative (appointed verbally by patient or by statute hierarchy) Care Teams Reading Coach Relationship Specialty Start Date End Date Shelli Ritter MD [address] [place] [address] [place] [address] PCP - General Family Medicine 10/30/15 documented as of this encounter
--- OUTSIDE RECORDS SUMMARY | 2024-11-29 02:19 | External Medical Summary | Summary of Care ---
Author Name Unknown Organization [facility] Address [address] [facility] [place] [address] Phone [phone] Care Team Providers Care Career Coordinator Name Role Phone Shelli Ritter MD Primary Care Provide r Reason for Visit * Reason Onset Date Comments Scheduling 08/29/2024 Colonoscopy proc [facility] office. Encounter Details Date Type Department Care Team (Late st Contact Info) Description 08/29/2024 Telephone Gastroenterology, [facility] [address] [place] [address] Glenny Abebe DO [address] [place] [address] Scheduling (Colonoscopy procedure - [facility] ... Allergies No known active [...] No 08/21/2024 Does the household have a [facility] source of income? (Household - for ages [...] Telephone Encounter - Beata Blair OSA - 09/17/2024 11:41 AM EST [facility] INGE Chen 09/17/2024 11:41 AM * Telephone Encounter - Beata Blair OSA - 09/11/2024 3:20 PM EST [facility] INGE Chen 09/11/2024 3:20 PM * Telephone [...] reschedule colonoscopy. Please call patient back at [phone]. She will be away from home on 08/30/24 until 1:30 pm (call after 1:30 pm) and is free all day Tuesday08/31/24 for a return phone call. Thank you! documented in this encounter Plan of Treatment Upcoming Encounters Date Type Department Care Team (Late st Contact Info) Description 09/26/2024 11:30 AM EST Office Visit Hematology/Oncology [facility] 200 [facility] [place] [address] Cuate Bowman MD [address] [facility] [place] [address] 05/17/2025 10:20 AM EDT Office Visit Rheumatology [address] [place] [address] Live Spann MD [address] [place] [address] [place], [place] [address] Scheduled Procedures Name Priority Associated Diagnoses Date/Ti [...] D LEVEL ONCE IN A LIFETIME-USE SMARTSET# [id number] Completed 04/16/2024, 05/04/2021, 09/01/2010 HPV (Gardasil) Vaccine Aged Out No lo nger eligible based on patient's age to complete this topic Hepatitis B Vaccine Aged Out No longe r eligible based on patient's age to complete this topic MENINGOCOCCAL (MENACTRA/MENVEO) Aged Out No longer eligible based on patient's age to complete this topic documented as of this encounter Medical Devices Implanted Type Area Forensic Ballistics Expert Device Identifier Shelf Expiration Date Model / Serial / Lot Power Port 8fr Sngl Lumen Plas - [id number] Implanted:Qty : 1 on 04/21/2023 by Artemio Bynum DO at OR [facility] Right: Chest CR BARD : PERIPHERAL VASCULAR 06/21/2024 [id number] / / [id number] Power Port 8fr Sngl Lumen Plas - [id number] Implanted:Qty : 1 on 04/21/2023 by Artemio Bynum DO at OR [facility] CR BARD : PERIPHERAL VASCULAR [id number] 06/21/2024 [id number] / / [id number] documented as of this encounter Advance Directives Healthcare Agents on File Name Relationship Healthcare Agent Relationshi p Communication Olivier Root Spouse Health Care Repr esentative (appointed verbally by patient or by statute hierarchy) Care Teams Career Coordinator Relationship Specialty Start Date End Date Shelli Ritter MD [address] [place] [address] [place] [phone] PCP - General Family Medicine 10/30/15 documented as of this encounter
--- OUTSIDE RECORDS SUMMARY | 2024-11-29 02:19 | External Medical Summary | Summary of Care ---
Author Name Unknown Organization [facility] Address [address] [facility] [place] [address] Phone [phone] Care Team Providers Care Voip Network Technician Name Role Phone Vito Nelson MD Primary Care Provide r Reason for Visit * Reason Comments eRx-Medication Refill Encounter Details Date Type Department Care Team (Late st Contact Info) Description 09/06/2024 Refill Family Medicine [address] [address] Vito Nelson MD [address] [place], [place] [address] [phone] HTN, goal below 140/90 Allergies No known active allergiesdocumented as of this encounter (statuses as of 09/06/2024) Medications Udderly Smooth Extra Care 20 External [...] SSION 90 Tablet 3 11/06/19 24 Active Folic Acid 1 MG Oral Tablet TAKE 1 TABLET BY MOUTH EVERY DAY IN THE MORNING 90 Tablet 1 03/01/20 24 Active Magnesium Oxide -Mg Supplement 400 [...] DAY 90 Tablet 2 09/06/19 25 Active Pantoprazole Sodium 40 MG Oral Tablet Delayed Release (Protonix) TAKE 1 TABLET BY MOUTH EVERY DAY IN THE MORNING 90 Tablet 1 03/01/20 24 025 Discontinued Lisinopril 40 MG Oral TabletIndicati ons:HTN, goal below 140/90 TAKE 1 TABLET BY MOUTH EVERY DAY 90 Tablet 1 03/02/20 24 025 Discontinued documented as of this encounter (statuses as of 09/06/2024) Active Problems Problem Noted Date Diagnosed Date [...] as of this encounter (statuses as of 09/06/2024) Resolved Problems Problem Noted Date Diagnosed Date Resolved Date Alcohol withdrawal 06/29/2017 0 Bipolar disorder 11/26/2013 10/28/2020 Alcohol related seizure 11/26/201302/2020 HTN, goal below 140/90 04/05/200806/27 Overview (06/27/2009): Modified per HTN Taxonomy. Peptic ulcer 04/05/2008 08/28/2019 ADVANCE DIRECTIVE INFORMATION 10/20/2005 06/25/2024 Overview (10/20/2005): No, Advance Directive brochure offered , patient declined. documented as of this encounter (statuses as of 09/06/2024) Immunizations Name Administration Dates Next Due COVID-19 [...] encounter Miscellaneous Notes * Telephone Encounter - Isabella Cali, [facility] - 09/06/2024 8:57 AM ESTSigned Prescriptions: Disp Refills Pantoprazole Sodium 40 MG Oral Tablet Desiree*90 Tab*2 Sig: TAKE 1 TABLET BY MOUTH EVERY DAY IN THE MORNINGAuthorizing Provider: VITO NELSON User:ISABELLA CALI Lisinopril 40 MG Oral Tablet 90 Tab*2 Sig: TAKE 1 TABLET BY MOUTH EVERY DAYAuthorizingProvider: VITO NELSON User: ISABELLA CALI documented in this encounter Plan of Treatment Upcoming Encounters Date Type Department Care Team (Latest Contact Info) Description 09/12/2024 11:15 AM EST Hospital Encounter ENDO [facility], Endoscopy Room [facility] [address] [place] [phone] Glenny Abebe, DO [address] [place] [address] 09/12/2024 11:15 AM EST - 09/12/2024 11:45 AM EST Surgery ENDO [facility], Endoscopy Room [facility] [address] [place] [phone] Glenny Abebe, DO [address] [place] [address] COLONOSCOPY FLEXIBLE PROXIMAL DIAGNOSTIC 09/26/2024 11:30 AM EST Office Visit Hematology/Oncology [facility] [address] [facility] [place] [phone] Cuate Bowman MD [address] [facility] [place] [address] 05/17/2025 10:20 AM EDT Office Visit Rheumatology [address] [place] [phone] Live Spann MD [address] [place] [address] [place] [address] Scheduled Procedures Name Priority Associated Diagnoses Date/Ti [...] D LEVEL ONCE IN A LIFETIME-USE SMARTSET# [id number] Completed 04/16/2024, 05/04/2021, 09/01/2010 HPV (Gardasil) Vaccine Aged Out No lo nger eligible based on patient's age to complete this topic Hepatitis B Vaccine Aged Out No longe r eligible based on patient's age to complete this topic MENINGOCOCCAL (MENACTRA/MENVEO) Aged Out No longer eligible based on patient's age to complete this topic documented as of this encounter Medical Devices Implanted Type Area Animal Biologist Device Identifier Shelf Expiration Date Model / Serial / Lot Power Port 8fr Sngl Lumen Plas - [id number] Implanted:Qty : 1 on 04/21/2023 by Artemio Bynum DO at OR [facility] Right: Chest CR BARD : PERIPHERAL VASCULAR 06/21/2024 [id number] / / [id number] Power Port 8fr Sngl Lumen Plas - [id number] Implanted:Qty : 1 on 04/21/2023 by Artemio Bynum DO at OR [facility] CR BARD : PERIPHERAL VASCULAR [id number] 06/21/2024 [id number] / / [id number] documented as of this encounter Visit Diagnoses Diagnosis HTN, goal below 140/90 Unspecified essential hypertension Rectal cancer (HCC) Malignant neoplasm of rectum documented in this encounter Advance Directives Healthcare Agents on File Name Relationship Healthcare Agent Relationshi p Communication Olivier Root Spouse Health Care Repr esentative (appointed verbally by patient or by statute hierarchy) Care Teams Voip Network Technician Relationship Specialty Start Date End Date Vito [place] MD [address] [place] [address] [place] [address] PCP - General Family Medicine 10/30/15 documented as of this encounter
--- OUTSIDE RECORDS SUMMARY | 2024-11-29 02:20 | External Medical Summary | Summary of Care ---
Author Name Unknown Organization [facility] Address [address] [facility] [place] [address] Phone [phone] Care Team Providers Care Boat Worker Name Role Phone Vito Ritter MD Primary Care Provide r Reason for Visit * Reason Comments eRx-Medication Refill Encounter Details Date Type Department Care Team (Late st Contact Info) Description 07/05/2024 Refill Family Medicine [address] [phone] Vito Ritter MD [address] [place], [place] [address] [phone] Generalized anxiety disorder Allergies No known active allergiesdocumented as of this encounter (statuses as of 07/09/2024) Medications Thiamine HCl 100 MG Oral Tablet (vitamin B-1) TAKE 1 TABLET BY MOUTH EVERY DAY IN THE MORNING 90 Tablet 1 01/28/20 23 Active Udderly Smooth Extra Care 20 External CreamIndicatio ns:Rectal cancer (HCC) Apply topically to hands and feet 2 times a day 228 g 3 3 1:31 PM EDT 02/11/20 23 Active Cyanocobalamin 500 MCG Oral Tablet Take 1 Tablet by mouth in the morning. Active Metoprolol Tartrate 50 MG Oral Tablet (Lopressor)Ind ications:HTN, goal below 140/90 TAKE 1 TABLET BY MOUTH IN THE MORNING AND BEFORE BEDTIME 180 Tablet 3 09/16/19 24 Active Sertraline HCl 100 MG Oral Tablet (Zoloft)Indica tions:Generali zed anxiety disorder TAKE 1 TABLET BY MOUTH DAILY FOR ANXIETY/DEPRES NICHO 90 Tablet 3 11/06/19 24 Active Ferrous Sulfate 325 (65 Fe) MG Oral Tablet (Feosol)Indica tions:Iron deficiency anemia due to chronic blood loss TAKE 1 TABLET BY MOUTH EVERY DAY IN THE MORNING 90 Tablet 1 03/01/20 24 Active Folic Acid 1 MG Oral Tablet TAKE 1 TABLET BY MOUTH EVERY DAY IN THE MORNING 90 Tablet 1 03/01/20 24 Active Pantoprazole Sodium 40 MG Oral Tablet Delayed Release (Protonix) TAKE 1 TABLET BY MOUTH EVERY DAY IN THE MORNING 90 Tablet 1 03/01/20 24 Active Lisinopril 40 MG Oral TabletIndicati ons:HTN, goal below 140/90 TAKE 1 TABLET BY MOUTH EVERY DAY 90 Tablet 1 03/02/20 24 Active Alendronate Sodium 70 MG Oral Tablet (Fosamax) PLEASE SEE ATTACHED FOR DETAILED DIRECTIONS Active amLODIPine Besylate 2.5 MG Oral Tablet (Norvasc) TAKE 1 TABLET BY MOUTH EVERY DAY IN THE MORNING 04/02/20 24 Active Vitamin D (Ergocalcifero l) 1.25 MG (81551 UT) Oral Capsule (Drisdol) Take 1 Capsule by mouth once a week. 04/02/20 24 Active Magnesium Oxide -Mg Supplement 400 (240 Mg) MG Oral Tablet (Mag-Ox)Indica tions:Hypomagn esemia TAKE 2 TABLETS BY MOUTH EVERY DAY 180 Tablet 1 04/30/20 24 Active busPIRone HCl 15 MG Oral Tablet (Buspar)Indica tions:Generali zed anxiety disorder TAKE 1 TABLET BY MOUTH IN THE MORNING AND BEFORE BEDTIME 180 Tablet 1 07/09/20 24 Active busPIRone HCl 15 MG Oral Tablet (Buspar)Indica tions:Generali zed anxiety disorder TAKE 1 TABLET BY MOUTH IN THE MORNING AND BEFORE BEDTIME 180 Tablet 1 12/21/19 24 024 Discontinued documented as of this encounter (statuses as of 07/09/2024) Active Problems Problem Noted Date Diagnosed Date [...] as of this encounter (statuses as of 07/09/2024) Resolved Problems Problem Noted Date Diagnosed Date Resolved Date Alcohol withdrawal 06/29/2017 Bipolar disorder 11/26/2013 10/28/2020 Alcohol related seizure 11/26/201302/2020 HTN, goal below 140/90 04/05/200806/27 Overview (06/27/2009): Modified per HTN Taxonomy. Peptic ulcer 04/05/2008 08/28/2019 ADVANCE DIRECTIVE INFORMATION 10/20/2005 06/25/2024 Overview (10/20/2005): No, Advance Directive brochure offered , patient declined. documented as of this encounter (statuses as of 07/09/2024) Immunizations Name Administration Dates Next Due COVID-19 [...] No 07/18/2023 Does the household have a [facility] source of income? 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 Not on file Not on file Not on file documented as of this encounter Miscellaneous Notes * Telephone Encounter - Vito Ritter MD - 07/09/2024 11:30 AM EST Signed Prescriptions: Disp Refills busPIRone HCl 15 MG Oral Tablet (Buspar) 180 Ta*1 Sig: TAKE 1 TABLET BY MOUTH IN THE MORNING AND BEFORE BEDTIME Authorizing Provider: VITO RITTER * Telephone Encounter - Live [facility] - 07/07/2024 11:34 AM ESTPending Prescriptions: Disp Refills busPIRone HCl 15 MG Oral Tablet [Pharmacy *180 Ta*1 Sig: TAKE 1 TABLET BY MOUTH IN THE MORNING AND BEFORE BEDTIME * Telephone Encounter - Live [facility] - 07/07/2024 11:34 AM EST Refill pharmacists currently not authorized to approve refills for the pended medication(s) per refill protocol. Please approve if appropriate. Pending Prescriptions: Disp Refills busPIRone HCl 15 MG Oral Tablet [Pharmacy *180 Ta*1 Sig: TAKE 1 TABLET BY MOUTH IN THE MORNING AND BEFORE BEDTIME Last Visit: 06/24/2023 (in office), Visit date not found (telemedicine) Next Visit: Visit date not found If no future appointments scheduled, and last appointment is greater than a year ago, please schedule patient for a follow-up appointment Last date the medication was ordered: 12-21-23 Pharmacy: [id number] Is this request for a controlled substance?No [...] Labs: Lab Results Component Value Date/Time CREAT 0.5 04/27/2024 10:18 AM CREAT 0.62 04/06/2023 12:00 AM CREAT 0.7 08/28/2019 09:20 AM POTASSIUM 3.8 04/27/2024 10:18 AM POTASSIUM 3.8 04/06/2023 12:00 AM POTASSIUM 4.2 08/28/2019 09:20 AM TSH 1.77 03/17/2018 04:27 PM LDL 91 04/26/2023 10:25 AM LDL 79 03/17/2018 04:27 PM LDL NOT APPLICABLE 03/17/2018 04:27 PM ALT 10 04/27/2024 10:18 AM ALT 16 06/09/2017 11:37 AM Alex May.Ph. Clinical Pharmacist [facility] [address] [place] [address], [facility] [address] [place] [address] : [phone] 07/07/2024,11:34 AM documented in this encounter Plan of Treatment Upcoming Encounters Date Type Department Care Team (Latest Contact Info) Description 09/10/2024 8:00 AM EST Hospital Encounter ENDO [facility], Endoscopy Room [facility] [address] [place] [phone] Wade Gomez MD [address] [place] [address] 09/10/2024 8:00 AM EST - 09/10/2024 8:30 AM EST Surgery ENDO [facility], Endoscopy Room [facility] [address] [place] [phone] Wade Gomez MD [address] [place] [address] COLONOSCOPY FLEXIBLE PROXIMAL DIAGNOSTIC 09/26/2024 11:30 AM EST Office Visit Hematology/Oncology [facility] [place] [address] [facility] [place] [phone] Cuate Bowman MD [address] [facility] [place] [address] 05/17/2025 10:20 AM EDT Office Visit Rheumatology [address] [place] [phone] Live Spann MD [address] [facility] [place] [address] Scheduled Procedures Name Priority Associated Diagnoses Date/Ti me COLONOSCOPY FLEXIBLE PROXIMA L DIAGNOSTIC Rectal cancer (HCC) 09/10/2024 8:00 AM EST Health Maintenance Due Date Last Done Comments HPV/Co-Test 1993 Cologuard 01/27/2008 Fecal Occult Blood Test 01/27/2008 Sigmoidoscopy 01/27/2008 Zoster Vaccines (1 of 2) 2013 Cervical Cancer Screening 10/20/2013 Pap Smear 10/20/2013 10/20/2010 Pneumococcal Vaccine: Pediatrics (0 to 5 Years) and At-Risk Patients (6 to 64 Years) (2 of 2 - PCV) 03/17/2019 03/17/2018 Depression Screening 04/22/2021 04/22/2020 Mammogram 12/14/2023 12/13/2022, 11/21, 12/02/2020, Additional history exists COVID-19 Vaccine ( season) 2024 10/24/2020, 09/29/2020 Influenza Vaccine (FLU shot) (#1) 2024 GFR 04/27/2025 04/27/2024, 03/23, 11/02/2023, Additional history exists Albumin/Creatinine Ratio 10/19/2025 10/19/2022 DXA Scan 04/17/2026 04/17/2024, 03/23, 03/30/2022 Lipid Panel 04/26/2028 04/26/2023, 02/20, 02/25/2011, Additional history exists DTap/Tdap Vaccines (3 - Td or Tdap) 08/28/2029 08/28/2019, 04/05/2008 Colonoscopy 12/27/2032 12/27/2022 Colorectal Cancer Screening 12/27/2032 VITAMIN D LEVEL ONCE IN A LIFETIME-USE SMARTSET# [id number] Completed 04/16/2024, 05/04/2021, 09/01/2010 Lung Cancer Screening Completed 05/17/2024 , 2023, 12/27/2022, Additional history exists HPV (Gardasil) Vaccine Aged Out No lo nger eligible based on patient's age to complete this topic Hepatitis B Vaccine Aged Out No longe r eligible based on patient's age to complete this topic MENINGOCOCCAL (MENACTRA/MENVEO) Aged Out No longer eligible based on patient's age to complete this topic documented as of this encounter Medical Devices Implanted Type Area Admission Specialist Device Identifier Shelf Expiration Date Model / Serial / Lot Power Port 8fr Sngl Lumen Plas - [id number] Implanted:Qty : 1 on 04/21/2023 by rAtemio Bynum DO at OR [facility] Right: Chest CR BARD : PERIPHERAL VASCULAR 06/21/2024 [id number] / / [id number] Power Port 8fr Sngl Lumen Plas - [id number] Implanted:Qty : 1 on 04/21/2023 by Artemio Bynum DO at OR [facility] CR BARD : PERIPHERAL VASCULAR [id number] 06/21/2024 [id number] / / [id number] documented as of this encounter Visit Diagnoses Diagnosis Generalized anxiety disorder Rectal cancer (HCC) Malignant neoplasm of rectum documented in this encounter Advance Directives Healthcare Agents on File Name Relationship Healthcare Agent Relationshi p Communication Olivier Root Spouse Health Care Repr esentative (appointed verbally by patient or by statute hierarchy) Care Teams Boat Worker Relationship Specialty Start Date End Date Vito Ritter MD [address] [place] [address] [place] [address] PCP - General Family Medicine 10/30/15 documented as of this encounter
--- OUTSIDE RECORDS SUMMARY | 2024-11-29 02:20 | External Medical Summary | Summary of Care ---
Author Name Unknown Organization [facility] Address [address] [facility] [place] [address] Phone [phone] Care Team Providers Care Building Cleaning Supervisor Name Role Phone Sehlli Ritter MD Primary Care Provide r Reason for Visit * Reason Comments Acute Encounter Details Date Type Department Care Team (Late st Contact Info) Description 08/21/2024 11:40 AM EST Office Visit Family Medicine [address] [phone] Elaina Holman [address] [place] [address] Left leg swelling*; Viral URI Allergies No known active allergiesdocumented as of this encounter (statuses as of 08/21/2024) Medications Udderly Smooth Extra Care 20 External [...] 1 4 Active Lisinopril 40 MG Oral TabletIndicati ons:HTN, [...] BEFORE BEDTIME 180 Tablet 1 4 Active Thiamine HCl 100 MG Oral Tablet (vitamin B-1) TAKE 1 TABLET BY MOUTH EVERY DAY IN THE MORNING 90 Tablet 1 3 08/21/20 24 Discontinu ed(Medicat ion List Clean Up) Cyanocobalamin 500 MCG Oral Tablet Take 1 Tablet by mouth in the morning. 08/21/20 Discontinu ed(Medicat ion List Clean Up) Ferrous Sulfate 325 (65 Fe) MG Oral Tablet (Feosol)Indica tions:Iron deficiency anemia due to chronic blood loss TAKE 1 TABLET BY MOUTH EVERY DAY IN THE MORNING 90 Tablet 1 4 08/21/20 24 Discontinu ed(Medicat ion List Clean Up) Alendronate Sodium 70 MG Oral Tablet (Fosamax) PLEASE SEE ATTACHED FOR DETAILED DIRECTIONS 08/21/20 Discontinu ed(Medicat ion List Clean Up) amLODIPine Besylate 2.5 MG Oral Tablet (Norvasc) TAKE 1 TABLET BY MOUTH EVERY DAY IN THE MORNING 4 08/21/20 Discontinu ed(Medicat ion List Clean Up) Vitamin D (Ergocalcifero l) 1.25 MG (70518 UT) Oral Capsule (Drisdol) Take 1 Capsule by mouth once a week. 4 08/21/20 Discontinu ed(Medicat ion List Clean Up) documented as of this encounter (statuses as of 08/21/2024) Active Problems Problem Noted Date Diagnosed Date [...] as of this encounter (statuses as of 08/21/2024) Resolved Problems Problem Noted Date Diagnosed Date Resolved Date Alcohol withdrawal 06/29/2017 Bipolar disorder 11/26/2013 10/28/2020 Alcohol related seizure 11/26/201302/2020 HTN, goal below 140/90 04/05/200806/27 Overview (06/27/2009): Modified per HTN Taxonomy. Peptic ulcer 04/05/2008 08/28/2019 ADVANCE DIRECTIVE INFORMATION 10/20/2005 06/25/2024 Overview (10/20/2005): No, Advance Directive brochure offered , patient declined. documented as of this encounter (statuses as of 08/21/2024) Immunizations Name Administration Dates Next Due COVID-19 mRNA, LNP-s, No Pre serve, 2-Dose Series (Moderna) 10/24/2020,09/29/2020 Pneumococcal Polysaccharide PPV23 (Pneumovax) TDAP (age 10 and older)(Boostrix) 08/28/2019 TDAP, Age 7 and older, IM (Adacel) 04/05/2008 documented as of this encounter Social History Tobacco Use Types Packs/Day Years Used Date Smoking Tobacco: Former Cigarettes 1 25 0 08/22/1984 - 08/22/2009 Smokeless Tobacco: Never Tobacco Cessation:Counseling Given: Not Answered Alcohol Use Standard Drinks/Week Comments Yes 0 [...] on file documented as of this encounter Last Filed Vital Signs Vital Sign Reading Time Taken Comments Blood Pressure 130/60 08/21/2024 11:40 AM EST Pulse 90 08/21/2024 11:40 AM EST Temperature 36.2 °C (97.2 °F) 08/21/2024 11:[address] Respiratory Rate 16 08/21/2024 11:40 AM EST Oxygen Saturation 100% 08/21/2024 11:40 AM EST Inhaled Oxygen Concentration - - Weight 49.9 kg (110 lb) 08/21/2024 11:40 AM EST Height - - Body Mass Index 20.77 04/26/2024 10:00 AM EDT documented in this encounter Progress Notes * Elaina Holman CRNP - 08/21/2024 11:44 AM EST Images from the original note were not included. History of Present Illness Amanda Ferrell is a 59 year old female that presents for Acute Concerns today for left leg swelling that has been ongoing for the past 6 months. Intermittent pain when leg is really swollen. No warmth or redness. Does have compression socks, but does not wear them. Previous ankle injury on left leg. Hx of frequent falls at home. No recent travel. No hx of bleeding disorders. Does have hx of rectal cancer/following with heme/onc for. Also cold symptoms which seem to be resolving. Reports congestion and cough. Denies any fever, chills, cp, sob. Patient Active Problem List Diagnosis Generalized anxiety disorder HTN, GOAL BELOW 140/90 Continuous chronic alcoholism (HCC) Hypomagnesemia Hyponatremia Ataxia Hypokalemia Senile osteoporosis Rectal cancer (HCC) Iron deficiency anemia due to chronic blood loss Encounter for antineoplastic chemotherapy Other pancytopenia (HCC) Compression fracture of T12 vertebra (HCC) Closed fracture of lower end of right radius with routine healing History of radiation therapy History of rectal or anal cancer Current Outpatient Medications Medication Sig Dispense Refill Udderly Smooth Extra Care 20 External Cream Apply topically to hands and feet 2 times a day 228 g 3 Metoprolol Tartrate 50 MG Oral Tablet (Lopressor) TAKE 1 TABLET BY MOUTH IN THE MORNING AND BEFORE BEDTIME 180 Tablet 3 Sertraline HCl 100 MG Oral Tablet (Zoloft) TAKE 1 TABLET BY MOUTH DAILY FOR ANXIETY/DEPRESSION 90 Tablet 3 Folic Acid 1 MG Oral Tablet TAKE 1 TABLET BY MOUTH EVERY DAY IN THE MORNING 90 Tablet 1 Pantoprazole Sodium 40 MG Oral Tablet Delayed Release (Protonix) TAKE 1 TABLET BY MOUTH EVERY DAY IN THE MORNING 90 Tablet 1 Lisinopril 40 MG Oral Tablet TAKE 1 TABLET BY MOUTH EVERY DAY 90 Tablet 1 Magnesium Oxide -Mg Supplement 400 (240 Mg) MG Oral Tablet (Mag-Ox) TAKE 2 TABLETS BY MOUTH EVERY DAY 180 Tablet 1 busPIRone HCl 15 MG Oral Tablet (Buspar) TAKE 1 TABLET BY MOUTH IN THE MORNING AND BEFORE BEDTIME 180 Tablet 1 No current facility-administered medications for this visit. Review of patient's allergies indicates: No Known Allergies Past Medical History: Diagnosis Date Closed fracture of lower end of right radius with routine healing 06/24/2023 Generalized anxiety disorder History of radiation therapy HTN, goal below 140/90 Peptic ulcer Rectal cancer (HCC) 01/03/2023 Sacral fracture, closed (HCC) 2013 bilateral--injured during alcohol withdrawal seizure Senile osteoporosis 03/30/2022 Past Surgical History: Procedure Laterality Date COLONOSCOPY, DIAGNOSTIC (RECTUM) N/A 12/27/2022 [facility], 1 -8mm in ascending, malinant tumor at 10 cm proximal to the anus / biopsies infiltrative adenocarcinoma / EGD, FLEXIBLE, DIAGNOSTIC N/A 12/27/2022 [facility], EGD, normal scope / no specimens colleted / INSER TUNN ACC DEV;5 YRS/OLDER Right 04/21/2023 INSERT TUNNELED CENTRAL VENOUS ACCESS WITH SUBQ PORT performed by Artemio Bynum DO at OR [facility] MOBILE DXA 03/30/2022 lumbar T -19, Femur T -2.7, high risk, treatment recommended Social History Socioeconomic History Marital status: Spouse name: Not on file Number of children: 1 Years of education: Not on file Highest education level: Not on file Occupational History Occupation: housewife Tobacco Use Smoking status: Former Current packs/day: 0.00 Average packs/day: 1 pack/day for 25.0 years (25.0 ttl pk-yrs) Types: Cigarettes Start date: 08/22/1984 Quit date: 08/22/2009 Years since quittin.0 Smokeless tobacco: Never Substance and Sexual Activity Alcohol use: Yes Comment: "at least" 4 beers daily Drug use: No Comment: used pot/crack 20yrs ago Sexual activity: Yes Partners: Male Other Topics Concern Not on file Social History Narrative Not on file Social Needs Financial Resource Strain: Low Risk (07/18/2023) Financial Resource Strain Do you have any trouble paying for your medications, or do you think you might in the future? (Adult - for ages 18 years and over): No Does your family have trouble paying for medicine? (Household - for ages 0-17 years): Not on file Food Insecurity: No Food Insecurity (07/18/2023) Food Insecurity Do you need food for this week? (Adult - for ages 18 years and over): No Are you able to get enough food for your family? (Household - for ages 0-17 years): Not on file Does your family need food this week? (Household - for ages 0-17 years): Not on file Do you always have enough food for your family? (Household - for ages 0-17 years): Not on file Transportation Needs: No Transportation Needs (07/18/2023) Transportation Needs Do you have trouble getting a ride to medical visits or work? (Adult - for ages 18 years and over):Never True Does your family have a hard time getting a ride to doctors’ visits? (Household - for ages 0-17 years): Not on file Has lack of transportation kept you from medical appointments, meetings, work, or from getting things needed for daily living? Check all that apply. (Adult - for ages 18 years and over): Not on file Do you (or your family) have trouble finding or paying for a ride (transportation)? (Household - for ages 0-17 years): Not on file Social Connections: Socially Integrated (07/18/2023) Social Connections How often do you feel lonely or isolated from those around you? (Adult - for ages 18 years and over): Never Housing Stability: Low Risk (07/18/2023) Housing Stability Do you currently live in a usp or have no steady place to sleep at night? (Adult - for ages 18 years and over): No Do you think you are at risk of becoming homeless? (Adult - for ages 18 years and over): No Does your family worry about paying for your home or becoming homeless? (Household - for ages 0-17 years): Not on file Are you homeless or worried that you might be in the future? (Adult - for ages 18 years and over): Not on file Are you (or your family) homeless or worried that you might be in the future? (Household - for ages0-17 years): Not on file Physical Exam Vitals: 08/21/24 1140 Temp: 97.2 °F (36.2 °C) Pulse: 90 Resp: 16 SpO2: 100% BP: 130/60 General: A&Ox3 and no distress Head: Normocephalic and atraumatic Heart: regular rate & rhythm, no murmur, no gallops, S-1 normal, and S-2 normal Lungs: normal respiratory rate and rhythm, lungs clear to auscultation Extremities: right lower leg no edema, left leg edema 1+, NV intact, normal color, no warmth Skin: warm and dry I have reviewed the following results: BMP results Recent Labs Units 04/27/24 1018 04/16/24 1056 11/02/23 1035 06/17/23 0625 SODIUM - [facility] mmol/L 131* -- 130* 141 POTASSIUM - [facility] mmol/L 3.8 -- 3.9 4.0 CHLORIDE - [facility] mmol/L 95* -- 94* 105 CO2 - [facility] mmol/L 23 -- 22 24 CREATININE - [facility] mg/dL 0.5 0.6 0.6 0.8 BUN - [facility] mg/dL 6 -- 4* 12 CBC results Recent Labs Units 04/27/24 1018 11/02/23 1035 06/17/23 0625 WBC K/uL 3.34* 1.47* 1.34* HGB g/dL 9.7* 9.5* 8.4* HCT % 28.5* 27.6* 26.7* PLT K/uL 176 136* 234 Assessment and Plan Left leg swelling - will update US to r/o DVT - discussed risk of diuretic given frequent falls at home and hyponatremia going to try compressionsocks more regularly and keeping legs elevated first - VASC DUPLEX VENOUS LE UNILAT Viral URI - seems to be resolving - discussed OTC Mucinex as needed for congestion Wrap-Up Follow Up: Return if symptoms worsen or fail to improve. Time: I spent a total of 20-29 minutes (exact time 20 mins) on the date of service in preparation, delivery, and documentation of the care provided to Amanda Diana excluding any time spent in the performance of separately billed services. Cosigned by Chacorta Ibarra MD at 08/21/2024 1:13 PM EST documented in this encounter Nursing Notes * Izzy Monsalve LPN - 08/21/2024 11:35 AM EST Cold sxs Left leg swelling from knee down. documented in this encounter Plan of Treatment Upcoming Encounters Date Type Department Care Team (Latest Contact Info) Description 08/23/2024 11:15 AM EST Imaging Radiology [address] [place] [address] 09/10/2024 8:00 AM EST Hospital Encounter ENDO [facility], Endoscopy Room [facility] [address] [place] [phone] Glenny Abebe, [address] [place] [address] 09/10/2024 8:00 AM EST - 09/10/2024 8:30 AM EST Surgery ENDO [facility], Endoscopy Room [facility] [address] [place] [phone] Glenny Abebe, [address] [place] [address] COLONOSCOPY FLEXIBLE PROXIMAL DIAGNOSTIC 09/26/2024 11:30 AM EST Office Visit [facility]ology[facility]On[facility] [address] [facility] [place] [phone] Cuate Bowman MD [address] [place] [address] [place] [address] 05/17/2025 10:20 AM EDT Office Visit Rheumatology [address] [place] [phone] Live Spann MD [address] [facility] [place], [place] [address] Scheduled Orders Name Type Priority Associated Diagnoses Orde r Schedule VASC DUPLEX VENOUS LE UNILAT Medical Imaging Routine Left leg swelling Ordered: 08/21/2024 Scheduled Procedures Name Priority Associated Diagnoses Date/Ti [...] D LEVEL ONCE IN A LIFETIME-USE SMARTSET# [id number] Completed 04/16/2024, 05/04/2021, 09/01/2010 Lung Cancer Screening [...] this encounter Medical Devices Implanted Type Area Kindergartner Device Identifier Shelf Expiration Date Model / Serial / Lot Power Port 8fr Sngl Lumen Plas - [id number] Implanted:Qty : 1 on 04/21/2023 by Artemio Bynum DO at OR [facility] Right: Chest CR BARD : PERIPHERAL VASCULAR 06/21/2024 [id number] / / [id number] Power Port 8fr Sngl Lumen Plas - [id number] Implanted:Qty : 1 on 04/21/2023 by Artemio Bynum DO at OR [facility] CR BARD : PERIPHERAL VASCULAR [id number] 06/21/2024 [id number] / / [id number] documented as of this encounter Visit Diagnoses Diagnosis Left leg swelling- Primary Viral URI Acute upper respiratory infections of unspecified site Rectal cancer (HCC) Malignant neoplasm of rectum documented in this encounter Advance Directives Healthcare Agents on File Name Relationship Healthcare Agent Relationshi p Communication Olivier Root Spouse Health Care Repr esentative (appointed verbally by patient or by statute hierarchy) Care Teams Building Cleaning Supervisor Relationship Specialty Start Date End Date Shelli Ritter MD [address] [place] [address] [place] [phone] PCP - General Family Medicine 10/30/15 documented as of this encounter
--- OUTSIDE RECORDS SUMMARY | 2024-11-29 02:20 | External Medical Summary | Summary of Care ---
Author Name Unknown Organization [facility] Address [address] [place] [address] Phone [phone] Care Team Providers Care Personnel Security Specialist Name Role Phone Shelli Ritter MD Primary Care Provide r Reason for Visit * Reason Onset Date Comments Other 06/14/2024 Encounter Details Date Type Department Care Team (Late st Contact Info) Description 06/14/2024 Telephone Access Center, [place] [address] [facility] *DO NOT REMOVE THIS DEPARTMENT* [place] [address] Services, Scheduling [address] [place] [address] Other Allergies No known active allergiesdocumented as of this encounter (statuses as of 06/19/2024) Medications Medication Sig Dispensed Refills Start Date [...] EVERY DAY 90 Tablet 1 03/02/2024 Active Alendronate Sodium 70 MG Oral Tablet (Fosamax) PLEASE SEE ATTACHED FOR DETAILED DIRECTIONS Active amLODIPine Besylate 2.5 MG Oral Tablet (Norvasc) TAKE 1 TABLET BY MOUTH EVERY DAY IN THE MORNING 04/02/2024 Active Vitamin D (Ergocalciferol) 1.25 MG (09263 UT) Oral Capsule (Drisdol) Take 1 Capsule by mouth once a week. 04/02/2024 Active Magnesium Oxide -Mg Supplement 400 (240 Mg) MG Oral Tablet (Mag-Ox)Indications :Hypomagnesemia TAKE 2 TABLETS BY MOUTH EVERY DAY 180 Tablet 1 04/30/2024 Active documented as of this encounter (statuses as of 06/19/2024) Active Problems Problem Noted Date Diagnosed Date [...] Advance Directive brochure offered , patient declined. History of radiation therapy documented as of this encounter (statuses as of 06/19/2024) Resolved Problems Problem Noted Date Diagnosed Date Resolved Date Alcohol withdrawal 06/29/2017 0 Bipolar disorder 11/26/2013 10/28/2020 Alcohol related seizure 11/26/201302/2020 HTN, goal below 140/90 04/05/200806/27 Overview: Modified per HTN Taxonomy. Peptic ulcer 04/05/2008 08/28/2019 documented as of this encounter (statuses as of 06/19/2024) Immunizations Name Administration Dates Next Due COVID-19 [...] No 07/18/2023 Does the household have a [employer] [place] source of income? (Household - for ages [...] encounter Miscellaneous Notes * Telephone Encounter - Deepali Stephenson OSA - 06/19/2024 11:32 AM EDT Lmm for pt to see if there is any day available sooner. * Telephone Encounter - Isabella Catalan OSA - 06/14/2024 10:18 AM EDT Patient returning phone call, patient has colonoscopy scheduled 09/10/2024, patient received a phonecall for a sooner date. Thank you documented in this encounter Plan of Treatment Upcoming Encounters Date Type Department Care Team (Latest Contact Info) Description 09/10/2024 8:00 AM EST Hospital Encounter ENDO [facility], Endoscopy Room [facility] [address] [place] [phone] Wade Gomez MD [address] [place] [address] 09/10/2024 8:00 AM EST - 09/10/2024 8:30 AM EST Surgery ENDO [facility], Endoscopy Room [facility] [address] [place] [phone] Wade Gomez MD [address] [place] [address] COLONOSCOPY FLEXIBLE PROXIMAL DIAGNOSTIC 09/26/2024 11:15 AM EST Office Visit Hematology/Oncology [facility] [address] [place] [phone] Cuate Bowman MD [address] [place], [place] [address] 05/17/2025 10:20 AM EDT Office Visit Rheumatology [address] [place] [phone] Live Spann MD [address] [place] [address] [place] [address] Scheduled Procedures Name Priority Associated Diagnoses Date/Ti [...] D LEVEL ONCE IN A LIFETIME-USE SMARTSET# 15081 Completed 04/16/2024, 05/04/2021, 09/01/2010 Lung Cancer Screening [...] encounter Medical Devices Implanted Type Area Sugar House Supervisor Device Identifier Shelf Expiration Date Model / Serial / Lot Power Port 8fr Sngl Lumen Plas - [id number] Implanted:Qty : 1 on 04/21/2023 by Artemio Bynum DO at OR [facility] Right: Chest CR BARD : PERIPHERAL VASCULAR 06/21/2024 [id number] / / [id number] Power Port 8fr Sngl Lumen Plas - [id number] Implanted:Qty : 1 on 04/21/2023 by Artemio Bynum DO at OR [facility] BARD : PERIPHERAL VASCULAR [id number] 06/21/2024 [id number] / / [id number] documented as of this encounter Advance Directives Healthcare Agents on File Name Relationship Healthcare Agent Relationshi p Communication Olivier Root Spouse Health Care Repr esentative (appointed verbally by patient or by statute hierarchy) Care Teams Personnel Security Specialist Relationship Specialty Start Date End Date Shelli Ritter MD [address] [place] [address] [place] [phone] PCP - General Family Medicine 10/30/15 documented as of this encounter
--- OUTSIDE RECORDS SUMMARY | 2024-11-29 02:20 | External Medical Summary | Summary of Care ---
Author Name Unknown Organization [facility] Address [address] [facility] [place] [address] Phone [phone] Care Team Providers Care Legal Support Specialist Name Role Phone Shelli Ritter MD Primary Care Provide r Reason for Visit * Reason Onset Date Comments Health Maintenance 07/25/2024 Encounter Details Date Type Department Care Team (Late st Contact Info) Description 07/25/2024 Telephone Family Medicine [address] [phone] Shelli Ritter MD [address] [place] [address] [place] [address] Health Maintenance Allergies No known active allergiesdocumented as of this encounter (statuses as of 07/25/2024) Medications Thiamine HCl 100 MG Oral Tablet (vitamin B-1) TAKE 1 TABLET BY MOUTH EVERY DAY IN THE MORNING 90 Tablet 1 3 Active Udderly Smooth Extra Care 20 External CreamIndication s:Rectal cancer (HCC) Apply topically to hands and feet 2 times a day 228 g 3 02/11/2023 1:31 PM EDT 3 Active Cyanocobalamin 500 MCG Oral Tablet Take [...] DAILY FOR ANXIETY/DEPRESS ION 90 Tablet 3 4 Active Ferrous Sulfate 325 (65 Fe) MG Oral Tablet (Feosol)Indicat ions:Iron deficiency anemia due to chronic blood loss TAKE 1 TABLET BY MOUTH EVERY DAY IN THE MORNING 90 Tablet 1 4 Active Folic Acid 1 MG Oral [...] EVERY DAY 90 Tablet 1 4 Active Alendronate Sodium 70 MG Oral Tablet (Fosamax) PLEASE SEE ATTACHED FOR DETAILED DIRECTIONS Active amLODIPine Besylate 2.5 MG Oral Tablet (Norvasc) TAKE 1 TABLET BY MOUTH EVERY DAY IN THE MORNING 4 Active Vitamin D (Ergocalciferol ) 1.25 MG (31725 UT) Oral Capsule (Drisdol) Take 1 Capsule by mouth once a week. 4 Active Magnesium Oxide -Mg Supplement 400 (240 Mg) MG Oral Tablet (Mag-Ox)Indicat ions:Hypomagnes emia TAKE 2 TABLETS BY MOUTH EVERY DAY 180 Tablet 1 4 Active busPIRone HCl 15 MG Oral Tablet (Buspar)Indicat ions:Generalize d anxiety disorder TAKE 1 TABLET BY MOUTH IN THE MORNING AND BEFORE BEDTIME 180 Tablet 1 4 Active documented as of this encounter (statuses as of 07/25/2024) Active Problems Problem Noted Date Diagnosed Date [...] as of this encounter (statuses as of 07/25/2024) Resolved Problems Problem Noted Date Diagnosed Date Resolved Date Alcohol withdrawal 06/29/2017 0 Bipolar disorder 11/26/2013 10/28/2020 Alcohol related seizure 11/26/201302/2020 HTN, goal below 140/90 04/05/200806/27 Overview (06/27/2009): Modified per HTN Taxonomy. Peptic ulcer 04/05/2008 08/28/2019 ADVANCE DIRECTIVE INFORMATION 10/20/2005 06/25/2024 Overview (10/20/2005): No, Advance Directive brochure offered , patient declined. documented as of this encounter (statuses as of 07/25/2024) Immunizations Name Administration Dates Next Due COVID-19 [...] encounter Miscellaneous Notes * Telephone Encounter - Alix Begum LPN - 07/25/2024 11:48 AM EST Care Gaps Comprehensive Care Outreach Last Office/Telemedicine Visit: 06/24/2023 (in office), Visit date not found (telemedicine) Next Office Visit: Visit date not found Hemoglobin AIC Results: No results found for: "HEMOGLOBIN A1C" BP Readings from Last 1 Encounters: 04/27/24 145/87 Reviewed Health Maintenance below: Health Maintenance Topic Date Due Zoster Vaccines (1 of 2) Never done Cervical Cancer Screening 10/20/2013 Pneumococcal Vaccine: Pediatrics (0 to 5 Years) and At-Risk Patients (6 to 64 Years) (2 of 2 - PCV)03/17/2019 Depression Screening 04/22/2021 Mammogram 12/14/2023 Influenza Vaccine (FLU shot) (1) Never done Ov Pap mamm Care Gap Outreach Action Taken: Unable to reach busy signal documented in this encounter Plan of Treatment Upcoming Encounters Date Type Department Care Team (Latest Contact Info) Description 09/10/2024 8:00 AM EST Hospital Encounter ENDO [facility], Endoscopy Room [facility] [address] [place] [phone] Glenny Abebe DO [address] [place] [address] 09/10/2024 8:00 AM EST - 09/10/2024 8:30 AM EST Surgery ENDO [facility], Endoscopy Room [facility] [address] [place] [phone] Glenny Abebe DO [address] [place] [address] COLONOSCOPY FLEXIBLE PROXIMAL DIAGNOSTIC 09/26/2024 11:30 AM EST [facility] [address] [facility] [place] [phone] Cuate Bowman MD [address] [place] [address] 05/17/2025 10:20 AM EDT Office Visit Rheumatology [address] [place] [phone] Live Spann MD [address] [place] [address] [place] [address] Scheduled Procedures Name Priority Associated Diagnoses Date/Ti [...] D LEVEL ONCE IN A LIFETIME-USE SMARTSET# [id number] Completed 04/16/2024, 05/04/2021, 09/01/2010 Lung Cancer Screening [...] this encounter Medical Devices Implanted Type Area Medical Facilities Section Director Device Identifier Shelf Expiration Date Model / Serial / Lot Power Port 8fr Sngl Lumen Plas - [id number] Implanted:Qty : 1 on 04/21/2023 by Artemio Bynum DO at OR [facility] Right: Chest CR BARD : PERIPHERAL VASCULAR 06/21/2024 [id number] / / [id number] Power Port 8fr Sngl Lumen Plas - [id number] Implanted:Qty : 1 on 04/21/2023 by Artemio Bynum DO at OR [facility] CR BARD : PERIPHERAL VASCULAR [id number] 06/21/2024 [id number] / / [id number] documented as of this encounter Advance Directives Healthcare Agents on File Name Relationship Healthcare Agent Relationshi p Communication Olivier Root Spouse Health Care Repr esentative (appointed verbally by patient or by statute hierarchy) Care Teams Legal Support Specialist Relationship Specialty Start Date End Date Shelli Ritter MD [address] [place] [address] [place] [address] PCP - General Family Medicine 10/30/15 documented as of this encounter
--- OUTSIDE RECORDS SUMMARY | 2024-11-29 02:20 | External Medical Summary | Summary of Care ---
Author Name Unknown Organization [facility] Address [address] [facility] [address] Phone [phone] Care Team Providers Care Railroad Wheels And Axle Inspector Name Role Phone Shelli Ritter MD Primary Care Provide r Reason for Visit * Reason Onset Date Comments Advice 08/16/2024 Encounter Details Date Type Department Care Team (Late st Contact Info) Description 08/16/2024 Telephone Family Medicine [address] [phone] Shelli Ritter MD [address] [place], [place] [address] [address] Advice Allergies No known active allergiesdocumented as of this encounter (statuses as of 08/16/2024) Medications Thiamine HCl 100 MG Oral Tablet [...] Active Vitamin D (Ergocalciferol ) 1.25 MG (61906 UT) Oral Capsule (Drisdol) Take 1 Capsule [...] as of this encounter (statuses as of 08/16/2024) Active Problems Problem Noted Date Diagnosed Date [...] as of this encounter (statuses as of 08/16/2024) Resolved Problems Problem Noted Date Diagnosed Date Resolved Date Alcohol withdrawal 06/29/2017 0 Bipolar disorder 11/26/2013 10/28/2020 Alcohol related seizure 11/26/201302/2020 HTN, goal below 140/90 04/05/200806/27 Overview (06/27/2009): Modified per HTN Taxonomy. Peptic ulcer 04/05/2008 08/28/2019 ADVANCE DIRECTIVE INFORMATION 10/20/2005 06/25/2024 Overview (10/20/2005): No, Advance Directive brochure offered , patient declined. documented as of this encounter (statuses as of 08/16/2024) Immunizations Name Administration Dates Next Due COVID-19 [...] 07/18/2023 Does the household have a re lar [...] encounter Miscellaneous Notes * Telephone Encounter - Baron Delgado OSA - 08/16/2024 3:45 PM EST Pt states she got a VM with a lot of static noise stating the provider is not going to be in for tomorrow's appt and she had to cancel. I do not see anything to that effect. Could you please advise pt if she is still to come in tomorrow? [phone]. * Telephone Encounter - Jordana Moreno LPN - 08/16/2024 11:26 AM EST Pt is calling. Reports that her left leg from her left foot to her knee is swelling. Reports that the swelling hurts from being tight. Swelling has been occurring off and on for 6 months but for the last 3 weeks the swelling has not been going down. Does try to elevate her leg often. Denies redness and fever. Also reports that she has a sore throat that started yesterday and a runny nose that started today. Appt was scheduled for tomorrow. * Telephone Encounter - Andree Inman OSA - 08/16/2024 11:23 AM EST Reason for patient's call: Pt called in with questions that she needs answered. Caller was transferred to [facility] at the nurse line. documented in this encounter Plan of Treatment Upcoming Encounters Date Type Department Care Team (Latest Contact Info) Description 08/17/2024 12:00 PM EST Office Visit Family [address] [place] [phone] Rosa Crook PA-C [address] [place] [address] [place] [address] 09/10/2024 8:00 AM EST Hospital Encounter ENDO [facility], Endoscopy Room [facility] [address] [place] [phone] Glenny Abebe DO [address] [place] [address] 09/10/2024 8:00 AM EST - 09/10/2024 8:30 AM EST Surgery ENDO [facility], Endoscopy Room [facility] [address] [place] [phone] Glenny Abebe DO [address] [place] [address] COLONOSCOPY FLEXIBLE PROXIMAL DIAGNOSTIC 09/26/2024 11:30 AM EST Office Visit Hematology/Oncology [facility] [place] [address] [place] [phone] Cuate Bowman MD [address] [place] [address] 05/17/2025 10:20 AM EDT Office Visit Rheumatology [address] [place] [phone] Live Spann MD [address] [place] [address] [place] [address] Scheduled Procedures Name Priority Associated Diagnoses Date/Ti [...] D LEVEL ONCE IN A LIFETIME-USE SMARTSET# [id number] Completed 04/16/2024, 05/04/2021, 09/01/2010 Lung Cancer Screening [...] this encounter Medical Devices Implanted Type Area Senior Database Engineer Device Identifier Shelf Expiration Date Model / Serial / Lot Power Port 8fr Sngl Lumen Plas - [id number] Implanted:Qty : 1 on 04/21/2023 by Artemio Bynum DO at OR [facility] Right: Chest CR BARD : PERIPHERAL VASCULAR 06/21/2024 [id number] / / [id number] Power Port 8fr Sngl Lumen Plas - [id number] Implanted:Qty : 1 on 04/21/2023 by Artemio Bynum DO at OR [facility] CR BARD : PERIPHERAL VASCULAR [id number] 06/21/2024 [id number] / / [id number] documented as of this encounter Advance Directives Healthcare Agents on File Name Relationship Healthcare Agent Relationshi p Communication Olivier Root Spouse Health Care Repr esentative (appointed verbally by patient or by statute hierarchy) Care Teams Railroad Wheels And Axle Inspector Relationship Specialty Start Date End Date Shelli Ritter MD [address] [place] [address] [place] [address] PCP - General Family Medicine 10/30/15 documented as of this encounter
--- OUTSIDE RECORDS SUMMARY | 2024-11-29 02:20 | External Medical Summary | Summary of Care ---
Author Name Unknown Organization [facility] Address [address] [facility] [address] Phone [phone] Care Team Providers Care Sheet Metal Roofer Name Role Phone Shelli Ritter MD Primary Care Provide r Reason for Visit * Reason Onset Date Comments Advice 08/16/2024 Encounter Details Date Type Department Care Team (Late st Contact Info) Description 08/16/2024 Telephone Family Medicine [address] [phone] Shelli Ritter MD [address] [place], [place] [address] [address] Advice Allergies No known active allergiesdocumented [...] Active Vitamin D (Ergocalciferol ) 1.25 MG (08791 UT) Oral Capsule (Drisdol) Take 1 Capsule [...] encounter Miscellaneous Notes * Telephone Encounter - Jordana Moreno LPN [...] she needs answered. Caller was transferred to Jordana at the nurse line. documented in this encounter Plan of Treatment Upcoming Encounters Date Type Department Care Team (Latest Contact Info) Description 08/17/2024 12:00 PM EST Office Visit Family Medicine [address] [place] [phone] Rosa Crook PA-C [address] [place] [address] [place] [address] 09/10/2024 8:00 AM EST Hospital Encounter ENDO [facility], Endoscopy Room [facility] [address] [place] [phone] Glenny Abebe, [address] [place] [address] 09/10/2024 8:00 AM EST - 09/10/2024 8:30 AM EST Surgery ENDO [facility], Endoscopy Room [facility] [address] [place] [phone] Glenny Abebe, [address] [place] [address] COLONOSCOPY FLEXIBLE PROXIMAL DIAGNOSTIC 09/26/2024 11:30 AM EST Office Visit Hematology/Oncology [facility] [address] [place] [phone] Cuate Bowman MD [address] [place] [address] 05/17/2025 10:20 AM EDT Office Visit Rheumatology [address] [place] [phone] Live Spann MD [address] [facility] [place], [place] [address] Scheduled Procedures Name Priority Associated Diagnoses Date/Ti [...] D LEVEL ONCE IN A LIFETIME-USE SMARTSET# [id number] Completed 04/16/2024, 05/04/2021, 09/01/2010 Lung Cancer Screening [...] this encounter Medical Devices Implanted Type Area Display Card Writer Device Identifier Shelf Expiration Date Model / Serial / Lot Power Port 8fr Sngl Lumen Plas - [id number] Implanted:Qty : 1 on 04/21/2023 by Artemio Bynum DO at OR [facility] Right: Chest CR BARD : PERIPHERAL VASCULAR 06/21/2024 [id number] / / [id number] Power Port 8fr Sngl Lumen Plas - [id number] Implanted:Qty : 1 on 04/21/2023 by Artemio Bynum DO at OR [facility] CR BARD : PERIPHERAL VASCULAR [id number] 06/21/2024 [id number] / / [id number] documented as of this encounter Advance Directives Healthcare Agents on File Name Relationship Healthcare Agent Relationshi p Communication Olivier Root Spouse Health Care Repr esentative (appointed verbally by patient or by statute hierarchy) Care Teams Sheet Metal Roofer Relationship Specialty Start Date End Date Shelli Ritter MD [address] [place] [address] [place] [address] PCP - General Family Medicine 10/30/15 documented as of this encounter
--- OUTSIDE RECORDS SUMMARY | 2024-11-29 02:21 | External Medical Summary | Summary of Care ---
Author Name Unknown Organization [facility] Address [address] [facility] [place] [address] Phone [phone] Care Team Providers Care Loss Prevention Representative Name Role Phone Shelli Ritter MD Primary Care Provide r Reason for Visit * Reason Onset Date Comments Appointment 05/24/2024 Advice 05/24/2024 Encounter Details Date Type Department Care Team (Late st Contact Info) Description 05/24/2024 Telephone Hematology/Oncology [facility] [place] 200 [facility] [place] [phone] Cuate Bowman MD [facility] [address] Appointment; Advice Allergies No known active allergiesdocumented as of this encounter (statuses as of 06/06/2024) Medications Medication Sig Dispensed Refills Start Date [...] 04/02/2024 Active Vitamin D (Ergocalciferol) 1.25 MG (80534 UT) Oral Capsule (Drisdol) Take 1 Capsule by mouth once a week. 04/02/2024 Active Magnesium Oxide -Mg Supplement 400 (240 Mg) MG Oral Tablet (Mag-Ox)Indications :Hypomagnesemia TAKE 2 TABLETS BY MOUTH EVERY DAY 180 Tablet 1 04/30/2024 Active documented as of this encounter (statuses as of 06/06/2024) Active Problems Problem Noted Date Diagnosed Date [...] as of this encounter (statuses as of 06/06/2024) Resolved Problems Problem Noted Date Diagnosed Date Resolved Date Alcohol withdrawal 06/29/2017 0 Bipolar disorder 11/26/2013 10/28/2020 Alcohol related seizure 11/26/201302/2020 HTN, goal below 140/90 04/05/200806/27 Overview: Modified per HTN Taxonomy. Peptic ulcer 04/05/2008 08/28/2019 documented as of this encounter (statuses as of 06/06/2024) Immunizations Name Administration Dates Next Due COVID-19 [...] Telephone Encounter - Alondra Armenta RN - 06/06/2024 7:47 AM EDT Colonoscopy is to r/o cancer recurrence. Gastro: is patient able to get sooner appt? Looks like her appt was moved to 09/10/24? * Telephone Encounter - Maritza Parks OSA - 06/05/2024 8:28 AM EDT Apt is scheduled she stated that colonoscopy now got moved to 09/10 apt with was scheduled after that Pt is aware * Telephone Encounter - Kavin Luna OSA - 06/04/2024 12:20 PM EDT Left message * Telephone Encounter - Alondra Armenta RN - 06/04/2024 10:17 AM EDT Scheduling: please call patient/ daughter to schedule follow up with Dr Bowman and erlinda flowerst 1-2 weeks after colonoscopy. Colonoscopy is scheduled for 06/06. Thanks! * Telephone Encounter - Beata Blair OSA - 05/30/2024 3:31 PM EDT Instructions emailed to daughter Nkechi INGE Chen 05/30/2024 3:31 PM * Telephone Encounter - Beata Blair OSA - 05/30/2024 1:55 PM EDT Pt scheduled for 06/06/24 Awaiting call back from daughter to send instructions to her email INGE Chen 05/30/2024 1:55 PM * Telephone Encounter - Alondra Armenta RN - 05/29/2024 3:03 PM EDT Called patient, she is agreeable to colonoscopy. She states that she fixed her voicemail so it should be working now. * Telephone Encounter - Arlette Lowery OSA - 05/29/2024 2:35 PM EDT Pt returning call. Please call her at [phone]. * Telephone Encounter - Beata Blair OSA - 05/28/2024 12:15 PM EDT INGE Guy 05/28/2024 12:15 PM * Telephone Encounter - Lillian Meza OSA - 05/24/2024 2:10 PM EDT Pt called you back Please call her back thank you * Telephone Encounter - Kavin Luna OSA - 05/24/2024 2:03 PM EDT Pt needs to schedule COLONOSCOPY Associated Diagnoses Rectal cancer (HCC) [C20] - Primary Please contact pt to schedule documented in this encounter Plan of Treatment Upcoming Encounters Date Type Department Care Team (Latest Contact Info) Description 09/10/2024 8:00 AM EST Hospital Encounter ENDO [facility], Endoscopy Room [facility] [address] [place] [phone] Wade Gomez MD [address] [place] [address] 09/10/2024 8:00 AM EST - 09/10/2024 8:30 AM EST Surgery ENDO [facility], Endoscopy Room [facility] [address] [place] [phone] Wade Gomez MD [address] [place] [address] COLONOSCOPY FLEXIBLE PROXIMAL DIAGNOSTIC 09/26/2024 11:15 AM EST Office Visit Hematology/Oncology [facility] [address] [place] [phone] Cuate Bowman MD [address] [place] [address] 05/17/2025 10:20 AM EDT Office Visit Rheumatology [address] [place] [phone] Live Spann MD [facility] [place], [place] [address] Scheduled Procedures Name Priority Associated Diagnoses Date/Ti mi COLONOSCOPY FLEXIBLE PROXIMA L DIAGNOSTIC Rectal cancer [...] D LEVEL ONCE IN A LIFETIME-USE SMARTSET# [id number] Completed 04/16/2024, 05/04/2021, 09/01/2010 Lung Cancer Screening [...] this encounter Medical Devices Implanted Type Area Civil Estimator Device Identifier Shelf Expiration Date Model / Serial / Lot Power Port 8fr Sngl Lumen Plas - [id number] Implanted:Qty : 1 on 04/21/2023 by Artemio Bynum DO at OR [facility] Right: Chest CR BARD : PERIPHERAL VASCULAR 06/21/2024 [id number] / / [id number] Power Port 8fr Sngl Lumen Plas - [id number] Implanted:Qty : 1 on 04/21/2023 by Artemio Bynum DO at OR [facility] CR BARD : PERIPHERAL VASCULAR [id number] 06/21/2024 [id number] / / [id number] documented as of this encounter Advance Directives Healthcare Agents on File Name Relationship Healthcare Agent Relationshi p Communication Olivier Root Spouse Health Care Repr esentative (appointed verbally by patient or by statute hierarchy) Care Teams Loss Prevention Representative Relationship Specialty Start Date End Date Shelli Ritter MD [address] [place] [address] [place] [phone] PCP - General Family Medicine 10/30/15 documented as of this encounter
--- OUTSIDE RECORDS SUMMARY | 2024-11-29 02:21 | External Medical Summary | Summary of Care ---
Author Name Unknown Organization [facility] Address [address] [facility] [place] [address] Phone [phone] Care Team Providers Care Mechanic Welder Name Role Phone Shelli Ritter MD Primary Care Provide r Reason for Visit * Reason Onset Date Comments Appointment 05/24/2024 Advice 05/24/2024 Encounter Details Date Type Department Care Team (Late st Contact Info) Description 05/24/2024 Telephone Hematology/Oncology [facility] [place] 200 [facility] [place] [phone] Cuate Bowman MD [facility] [address] Appointment; Advice Allergies No known active allergiesdocumented as of this encounter (statuses as of 06/04/2024) Medications Medication Sig Dispensed Refills Start Date [...] 04/02/2024 Active Vitamin D (Ergocalciferol) 1.25 MG (08931 UT) Oral Capsule (Drisdol) Take 1 Capsule by mouth once a week. 04/02/2024 Active Magnesium Oxide -Mg Supplement 400 (240 Mg) MG Oral Tablet (Mag-Ox)Indications :Hypomagnesemia TAKE 2 TABLETS BY MOUTH EVERY DAY 180 Tablet 1 04/30/2024 Active documented as of this encounter (statuses as of 06/04/2024) Active Problems Problem Noted Date Diagnosed Date [...] as of this encounter (statuses as of 06/04/2024) Resolved Problems Problem Noted Date Diagnosed Date Resolved Date Alcohol withdrawal 06/29/2017 0 Bipolar disorder 11/26/2013 10/28/2020 Alcohol related seizure 11/26/201302/2020 HTN, goal below 140/90 04/05/200806/27 Overview: Modified per HTN Taxonomy. Peptic ulcer 04/05/2008 08/28/2019 documented as of this encounter (statuses as of 06/04/2024) Immunizations Name Administration Dates Next Due COVID-19 [...] encounter Miscellaneous Notes * Telephone Encounter - Kavin Luna OSA - 06/04/2024 12:20 PM EDT Left message * Telephone Encounter - Alondra Armenta RN - 06/04/2024 10:17 AM EDT Scheduling: please call patient/ daughter to schedule follow up with Dr Bowman and erlinda martínez 1-2 weeks after colonoscopy. Colonoscopy is scheduled [...] Pt returning call. Please call her at [phone]. * Telephone Encounter - Beata Blair OSA - 05/28/2024 12:15 PM EDT Line busy IGNE Chen 05/28/2024 12:15 PM * Telephone Encounter - [...] Department Care Team (Latest Contact Info) Description 06/06/2024 10:30 AM EDT Hospital Encounter ENDO [facility], Endoscopy Room [facility] [address] [place] [phone] Wade Gomez MD [address] [place] [address] 06/06/2024 10:30 AM EDT - 06/06/2024 11:00 AM EDT Surgery ENDO [facility], Endoscopy Room [facility] [address] [place] [phone] Wade Gomez MD [address] [place] [address] COLONOSCOPY FLEXIBLE PROXIMAL DIAGNOSTIC 05/17/2025 10:20 AM EDT Office Visit Rheumatology [address] [place] [phone] Live Spann MD [address] [facility] [place] [address] Scheduled Procedures Name Priority Associated Diagnoses Date/Ti me COLONOSCOPY FLEXIBLE PROXIMA L DIAGNOSTIC Rectal cancer (HCC) 06/06/2024 10:30 AM EDT Health Maintenance Due Date Last Done Comments [...] D LEVEL ONCE IN A LIFETIME-USE SMARTSET# [id number] Completed 04/16/2024, 05/04/2021, 09/01/2010 Lung Cancer Screening [...] encounter Medical Devices Implanted Type Area Senior Training Specialist Device Identifier Shelf Expiration Date Model / Serial / Lot Power Port 8fr Sngl Lumen Plas - [id number] Implanted:Qty : 1 on 04/21/2023 by Artemio Bynum, at OR [facility] Right: Chest CR BARD : PERIPHERAL VASCULAR 06/21/2024 [id number] / / [id number] Power Port 8fr Sngl Lumen Plas - [id number] Implanted:Qty : 1 on 04/21/2023 by Artemio Bynum DO at OR [facility] CR BARD : PERIPHERAL VASCULAR [id number] 06/21/2024 [id number] / / [id number] documented as of this encounter Advance Directives Healthcare Agents on File Name Relationship Healthcare Agent Relationshi p Communication Olivier Root Spouse Health Care Repr esentative (appointed verbally by patient or by statute hierarchy) Care Teams Mechanic Welder Relationship Specialty Start Date End Date Shelli Ritter MD [address] [place] [address] [place] [phone] PCP - General Family Medicine 10/30/15 documented as of this encounter
--- OUTSIDE RECORDS SUMMARY | 2024-11-29 02:21 | External Medical Summary | Summary of Care ---
Author Name Unknown Organization [facility] Address [address] [facility] [place] [address] Phone [phone] Care Team Providers Care Data Analyst Name Role Phone Shelli Ritter MD Primary Care Provide r Reason for Visit * Reason Onset Date Comments Appointment 05/24/2024 Advice 05/24/2024 Encounter Details Date Type Department Care Team (Late st Contact Info) Description 05/24/2024 Telephone Hematology/Oncology [facility] [place] 200 [facility] [place] [phone] Cuate Bowman MD 200 [facility] [address] Appointment; Advice Allergies No known active allergiesdocumented as of this encounter (statuses as of 06/07/2024) Medications Medication Sig Dispensed Refills Start Date [...] 04/02/2024 Active Vitamin D (Ergocalciferol) 1.25 MG (92252 UT) Oral Capsule (Drisdol) Take 1 Capsule by mouth once a week. 04/02/2024 Active Magnesium Oxide -Mg Supplement 400 (240 Mg) MG Oral Tablet (Mag-Ox)Indications :Hypomagnesemia TAKE 2 TABLETS BY MOUTH EVERY DAY 180 Tablet 1 04/30/2024 Active documented as of this encounter (statuses as of 06/07/2024) Active Problems Problem Noted Date Diagnosed Date [...] as of this encounter (statuses as of 06/07/2024) Resolved Problems Problem Noted Date Diagnosed Date Resolved Date Alcohol withdrawal 06/29/2017 0 Bipolar disorder 11/26/2013 10/28/2020 Alcohol related seizure 11/26/201302/2020 HTN, goal below 140/90 04/05/200806/27 Overview: Modified per HTN Taxonomy. Peptic ulcer 04/05/2008 08/28/2019 documented as of this encounter (statuses as of 06/07/2024) Immunizations Name Administration Dates Next Due COVID-19 [...] Telephone Encounter - Beata Blair OSA - 06/07/2024 12:24 PM EDT Pts appt was moved because pt called in stating that she was sick. She is on move up list for a sooner appt INGE Chen 06/07/2024 12:25 PM * Telephone Encounter - Alondra Armenta RN - 06/06/2024 7:47 AM EDT Colonoscopy is to r/o cancer recurrence. Gastro: is patient able to get sooner appt? Looks like her appt was moved to 09/10/24? * Telephone Encounter - Maritza Parks OSA - 06/05/2024 8:28 AM EDT Apt is scheduled she stated that colonoscopy now got moved to 09/[address] was scheduled after that Pt is aware [...] Pt returning call. Please call her at [phone]. * Telephone Encounter - Beata Blair OSA - 05/28/2024 12:15 PM EDT Line busINGE Patino 05/28/2024 12:15 PM * Telephone Encounter - [...] Room [facility] [address] [place] [phone] Wade Gomez MD [address] [place] [address] 09/10/2024 8:00 AM EST - 09/10/2024 8:30 AM EST Surgery ENDO [facility], Endoscopy Room [facility] [address] [place] [phone] Wade Gomez MD [address] [place] [address] COLONOSCOPY FLEXIBLE PROXIMAL DIAGNOSTIC 09/26/2024 11:15 AM EST Office Visit Hematology/Oncology [facility] [place] [address] [place] [phone] Cuate Bowman MD [address] [place] [address] 05/17/2025 10:20 AM EDT Office Visit Rheumatology [address] [place] [phone] Live Spann MD [address] [employer] [place] [address] Scheduled Procedures Name Priority Associated Diagnoses Date/Ti [...] D LEVEL ONCE IN A LIFETIME-USE SMARTSET# [id number] Completed 04/16/2024, 05/04/2021, 09/01/2010 Lung Cancer Screening [...] encounter Medical Devices Implanted Type Area Manager Performance Improvement Device Identifier Shelf Expiration Date Model / Serial / Lot Power Port 8fr Sngl Lumen Plas - [id number] Implanted:Qty : 1 on 04/21/2023 by Artemio Bynum DO at OR [facility] Right: Chest CR BARD : PERIPHERAL VASCULAR 06/21/2024 [id number] / / [id number] Power Port 8fr Sngl Lumen Plas - [id number] Implanted:Qty : 1 on 04/21/2023 by Artemio Bynum DO at OR [facility] CR BARD : PERIPHERAL VASCULAR [id number] 06/21/2024 [id number] / / [id number] documented as of this encounter Advance Directives Healthcare Agents on File Name Relationship Healthcare Agent Relationshi p Communication Olivier Root Spouse Health Care Repr esentative (appointed verbally by patient or by statute hierarchy) Care Teams Data Analyst Relationship Specialty Start Date End Date Shelli Ritter MD [address] [place] [address] [place] [phone] PCP - General Family Medicine 10/30/15 documented as of this encounter
--- OUTSIDE RECORDS SUMMARY | 2024-11-29 02:21 | External Medical Summary | Summary of Care ---
Author Name Unknown Organization [facility] Address [address] [facility] [place] [address] Phone [phone] Care Team Providers Care Executive Officer Special Warfare Team Name Role Phone Shelli Ritter MD Primary Care Provide r Reason for Visit * Reason Onset Date Comments Appointment 05/24/2024 Advice 05/24/2024 Encounter Details Date Type Department Care Team (Late st Contact Info) Description 05/24/2024 Telephone Hematology/Oncology [facility] [place] 200 [facility] [place] [phone] Cuate Bowman MD 200 [facility] [address] Appointment; Advice Allergies No known active allergiesdocumented [...] 04/02/2024 Active Vitamin D (Ergocalciferol) 1.25 MG (30782 UT) Oral Capsule (Drisdol) Take 1 Capsule [...] follow up with Dr Bowman and erlinda griffin appt 1-2 weeks after colonoscopy. Colonoscopy is scheduled [...] Pt returning call. Please call her at [phone]. * Telephone Encounter - Beata Blair OSA - 05/28/2024 12:15 PM EDT Line busy INGE Chen 05/28/2024 12:15 PM * Telephone Encounter [...] EDT Hospital Encounter ENDO [facility], Endoscopy Room [facility] [address] [place] [address] Wade Gomez MD [address] [place] [address] 06/06/2024 10:30 AM EDT - 06/06/2024 11:00 AM EDT Surgery ENDO [facility], Endoscopy Room [facility] [address] [place] [phone] Wade Gomez MD [address] [place] [address] COLONOSCOPY FLEXIBLE PROXIMAL DIAGNOSTIC 05/17/2025 10:20 AM EDT Office Visit Rheumatology [address] [place] [phone] Live Spann MD [address] [facility] [place] [address] Scheduled Procedures Name Priority Associated Diagnoses Date/Ti [...] D LEVEL ONCE IN A LIFETIME-USE SMARTSET# [id number] Completed 04/16/2024, 05/04/2021, 09/01/2010 Lung Cancer Screening [...] this encounter Medical Devices Implanted Type Area Rubber Goods Repairer Device Identifier Shelf Expiration Date Model / Serial / Lot Power Port 8fr Sngl Lumen Plas - [id number] Implanted:Qty : 1 on 04/21/2023 by Artemio Bynum DO at OR [facility] Right: Chest CR BARD : PERIPHERAL VASCULAR 06/21/2024 [id number] / / [id number] Power Port 8fr Sngl Lumen Plas - [id number] Implanted:Qty : 1 on 04/21/2023 by Artemio Bynum DO at OR [facility] CR BARD : PERIPHERAL VASCULAR [id number] 06/21/2024 [id number] / / [id number] documented as of this encounter Advance Directives Healthcare Agents on File Name Relationship Healthcare Agent Relationshi p Communication Olivier Root Spouse Health Care Repr esentative (appointed verbally by patient or by statute hierarchy) Care Teams Executive Officer Special Warfare Team Relationship Specialty Start Date End Date Shelli Ritter MD [address] [place] [address] [place] [phone] PCP - General Family Medicine 10/30/15 documented as of this encounter
--- OUTSIDE RECORDS SUMMARY | 2024-11-29 02:21 | External Medical Summary | Summary of Care ---
Author Name Unknown Organization [facility] Address [address] [facility] [place] [address] Phone [phone] Care Team Providers Care Supervisor Kennel Name Role Phone Shelli Ritter MD Primary Care Provide r Reason for Visit * Reason Onset Date Comments Appointment 05/24/2024 Advice 05/24/2024 Encounter Details Date Type Department Care Team (Late st Contact Info) Description 05/24/2024 Telephone Hematology/Oncology [facility] [place] 200 [facility] [place] [phone] Cuate Bowman MD 200 [facility] [address] Appointment; Advice Allergies No known active allergiesdocumented as of this encounter (statuses as of 06/11/2024) Medications Medication Sig Dispensed Refills Start Date [...] 04/02/2024 Active Vitamin D (Ergocalciferol) 1.25 MG (55374 UT) Oral Capsule (Drisdol) Take 1 Capsule by mouth once a week. 04/02/2024 Active Magnesium Oxide -Mg Supplement 400 (240 Mg) MG Oral Tablet (Mag-Ox)Indications :Hypomagnesemia TAKE 2 TABLETS BY MOUTH EVERY DAY 180 Tablet 1 04/30/2024 Active documented as of this encounter (statuses as of 06/11/2024) Active Problems Problem Noted Date Diagnosed Date [...] as of this encounter (statuses as of 06/11/2024) Resolved Problems Problem Noted Date Diagnosed Date Resolved Date Alcohol withdrawal 06/29/2017 0 Bipolar disorder 11/26/2013 10/28/2020 Alcohol related seizure 11/26/201302/2020 HTN, goal below 140/90 04/05/200806/27 Overview: Modified per HTN Taxonomy. Peptic ulcer 04/05/2008 08/28/2019 documented as of this encounter (statuses as of 06/11/2024) Immunizations Name Administration Dates Next Due COVID-19 [...] Pt returning call. Please call her at [phone]. * Telephone Encounter - Beata Blair OSA [...] Room [facility] [address] [place] [phone] Wade Gomez MD [address] [place] [address] 09/10/2024 8:00 AM EST - 09/10/2024 8:30 AM EST Surgery ENDO [facility], Endoscopy Room [facility] [address] [place] [phone] Wade Gomez MD [address] [place] [address] COLONOSCOPY FLEXIBLE PROXIMAL DIAGNOSTIC 09/26/2024 11:15 AM EST Office Visit Hematology/Oncology [facility] [place] [address] [place] [phone] Cuate Bowman MD [address] [place] [address] 05/17/2025 10:20 AM EDT Office Visit Rheumatology [address] [place] [phone] Live Spann MD [address] [place] [address] Scheduled Procedures Name Priority Associated Diagnoses Date/Ti [...] D LEVEL ONCE IN A LIFETIME-USE SMARTSET# [id number] Completed 04/16/2024, 05/04/2021, 09/01/2010 Lung Cancer Screening [...] this encounter Medical Devices Implanted Type Area Cotton Ball Machine Tender Device Identifier Shelf Expiration Date Model / Serial / Lot Power Port 8fr Sngl Lumen Plas - [id number] Implanted:Qty : 1 on 04/21/2023 by Artemio Bynum DO at OR [facility] Right: Chest CR BARD : PERIPHERAL VASCULAR 06/21/2024 [id number] / / [id number] Power Port 8fr Sngl Lumen Plas - [id number] Implanted:Qty : 1 on 04/21/2023 by Artemio Bynum DO at OR [facility] CR BARD : PERIPHERAL VASCULAR [id number] 06/21/2024 [id number] / / [id number] documented as of this encounter Advance Directives Healthcare Agents on File Name Relationship Healthcare Agent Relationshi p Communication Olivier Root Spouse Health Care Repr esentative (appointed verbally by patient or by statute hierarchy) Care Teams Supervisor Kennel Relationship Specialty Start Date End Date Shelli Ritter MD [address] [place] [address] [place] [phone] PCP - General Family Medicine 10/30/15 documented as of this encounter
--- OUTSIDE RECORDS SUMMARY | 2024-11-29 02:21 | External Medical Summary | Summary of Care ---
Author Name Unknown Organization [facility] Address [address] [facility] [place] [address] Phone [phone] Care Team Providers Care Pharmacist In Charge Name Role Phone Shelli Ritter MD Primary Care Provide r Reason for Visit * Reason Onset Date Comments Appointment 05/24/2024 Advice 05/24/2024 Encounter Details Date Type Department Care Team (Late st Contact Info) Description 05/24/2024 Telephone Hematology/Oncology [facility] [place] [address] [facility] [place] [phone] Cuate Bowman MD [facility] [address] Appointment; Advice Allergies No known active allergiesdocumented as of this encounter (statuses as of 06/05/2024) Medications Medication Sig Dispensed Refills Start Date [...] 04/02/2024 Active Vitamin D (Ergocalciferol) 1.25 MG (19789 UT) Oral Capsule (Drisdol) Take 1 Capsule by mouth once a week. 04/02/2024 Active Magnesium Oxide -Mg Supplement 400 (240 Mg) MG Oral Tablet (Mag-Ox)Indications :Hypomagnesemia TAKE 2 TABLETS BY MOUTH EVERY DAY 180 Tablet 1 04/30/2024 Active documented as of this encounter (statuses as of 06/05/2024) Active Problems Problem Noted Date Diagnosed Date [...] as of this encounter (statuses as of 06/05/2024) Resolved Problems Problem Noted Date Diagnosed Date Resolved Date Alcohol withdrawal 06/29/2017 0 Bipolar disorder 11/26/2013 10/28/2020 Alcohol related seizure 11/26/201302/2020 HTN, goal below 140/90 04/05/200806/27 Overview: Modified per HTN Taxonomy. Peptic ulcer 04/05/2008 08/28/2019 documented as of this encounter (statuses as of 06/05/2024) Immunizations Name Administration Dates Next Due COVID-19 [...] Pt returning call. Please call her at [phone]. * Telephone Encounter - Beata Blair OSA [...] 09/10/2024 8:00 AM EST Hospital Encounter ENDO [facility], Endoscopy Room [facility] [address] [place] [phone] Wade Gomez MD [address] [place] [address] 09/10/2024 8:00 AM EST - 09/10/2024 8:30 AM EST Surgery ENDO [facility], Endoscopy Room [facility] [address] [place] [phone] Wade Gomez MD [address] [place] [address] COLONOSCOPY FLEXIBLE PROXIMAL DIAGNOSTIC 09/26/2024 11:15 AM EST Office Visit Hematology/Oncology [facility] [place] 200 [facility] [place], [place] [phone] Cuate Bowman MD 200 [facility] [place] [address] 05/17/2025 10:20 AM EDT Office Visit Rheumatology [address] [place] [phone] Live Spann MD [facility] [place], [place] [address] Scheduled Procedures Name Priority Associated Diagnoses Date/Ti [...] D LEVEL ONCE IN A LIFETIME-USE SMARTSET# [id number] Completed 04/16/2024, 05/04/2021, 09/01/2010 Lung Cancer Screening [...] this encounter Medical Devices Implanted Type Area Public Health Analyst Device Identifier Shelf Expiration Date Model / Serial / Lot Power Port 8fr Sngl Lumen Plas - [id number] Implanted:Qty : 1 on 04/21/2023 by Artemio Bynum DO at OR [facility] Right: Chest CR BARD : PERIPHERAL VASCULAR 06/21/2024 [id number] / / [id number] Power Port 8fr Sngl Lumen Plas - [id number] Implanted:Qty : 1 on 04/21/2023 by Artemio Bynum DO at OR [facility] CR BARD : PERIPHERAL VASCULAR [id number] 06/21/2024 [id number] / / [id number] documented as of this encounter Advance Directives Healthcare Agents on File Name Relationship Healthcare Agent Relationshi p Communication Olivier Root Spouse Health Care Repr esentative (appointed verbally by patient or by statute hierarchy) Care Teams Pharmacist In Charge Relationship Specialty Start Date End Date Shelli Ritter MD [address] [place] [address] [place] [phone] PCP - General Family Medicine 10/30/15 documented as of this encounter
--- OUTSIDE RECORDS SUMMARY | 2024-11-29 02:21 | External Medical Summary | Summary of Care ---
Author Name Unknown Organization [facility] Address [address] [facility] [place] [address] Phone [phone] Care Team Providers Care Water Taxi Driver Name Role Phone Shelli Ritter MD Primary Care Provide r Reason for Visit * Reason Onset Date Comments Appointment 05/24/2024 Advice 05/24/2024 Encounter Details Date Type Department Care Team (Late st Contact Info) Description 05/24/2024 Telephone Hematology/Oncology [facility] [place] 200 [facility] [place] [phone] Cuate Bowman MD 200 [facility] [address] Appointment; Advice Allergies No known active allergiesdocumented [...] 04/02/2024 Active Vitamin D (Ergocalciferol) 1.25 MG (47403 UT) Oral Capsule (Drisdol) Take 1 Capsule [...] schedule follow up with Dr Bowman and erilnda flowerst 1-2 weeks after colonoscopy. Colonoscopy is [...] Pt returning call. Please call her at [phone]. * Telephone Encounter - Beata Blair OSA [...] Room [facility] [address] [place] [phone] Wade Gomez MD [address] [place] [address] 09/10/2024 8:00 AM EST - 09/10/2024 8:30 AM EST Surgery ENDO [facility], Endoscopy Room [facility] [address] [place] [phone] Wade Gomez MD [address] [place] [address] COLONOSCOPY FLEXIBLE PROXIMAL DIAGNOSTIC 09/26/2024 11:15 AM EST Office Visit Hematology/Oncology [facility] [address] [place] [phone] Cuate Bowman MD [address] [place] [address] 05/17/2025 10:20 AM EDT Office Visit Rheumatology [address] [place] [phone] Live Spann MD [facility] [employer] [place], [place] [address] Scheduled Procedures Name Priority Associated Diagnoses Date/Ti in COLONOSCOPY FLEXIBLE PROXIMA L DIAGNOSTIC Rectal cancer [...] D LEVEL ONCE IN A LIFETIME-USE SMARTSET# [id number] Completed 04/16/2024, 05/04/2021, 09/01/2010 Lung Cancer Screening [...] this encounter Medical Devices Implanted Type Area Solid Waste Technician Device Identifier Shelf Expiration Date Model / Serial / Lot Power Port 8fr Sngl Lumen Plas - [id number] Implanted:Qty : 1 on 04/21/2023 by Artemio Bynum DO at OR [facility] Right: Chest CR BARD : PERIPHERAL VASCULAR 06/21/2024 [id number] / / [id number] Power Port 8fr Sngl Lumen Plas - [id number] Implanted:Qty : 1 on 04/21/2023 by Artemio Bynum DO at OR [facility] CR BARD : PERIPHERAL VASCULAR [id number] 06/21/2024 [id number] / / [id number] documented as of this encounter Advance Directives Healthcare Agents on File Name Relationship Healthcare Agent Relationshi p Communication Olivier Root Spouse Health Care Repr esentative (appointed verbally by patient or by statute hierarchy) Care Teams Water Taxi Driver Relationship Specialty Start Date End Date Shelli Ritter MD [address] [place] [address] [place] [address] PCP - General Family Medicine 10/30/15 documented as of this encounter
--- OUTSIDE RECORDS SUMMARY | 2024-11-29 02:21 | External Medical Summary | Summary of Care ---
Author Name Unknown Organization [facility] Address [address] [place] [address] Phone [phone] Care Team Providers Care Drier Operator Helper Name Role Phone Shelli Ritter MD Primary Care Provide r Reason for Visit * Reason Comments Infusion Reclast Procedure Port flush with labs * Episode Based Medications (Routine) - Closed Specialty Diagnoses / Procedures Referred By Anum t Referred To Contact Diagnoses Senile osteoporosis Procedures MD ZOLEDRONIC ACID 1MG Live Spann MD [address] [employer] [place] [address] Anc Hem/Onc [address] [phone] Referral ID Status Reason Start Date Expiration Date Visits Re quested Visits Authorized [id number] Closed 04/16/2024 04/16/2025 99 99 Encounter Details Date Type Department Care Team (Latest Contact Info) Description 04/27/2024 10:15 AM EDT Hem/Onc Treatment Hematology/Oncology Treatment, [address] [phone] Carol, Chair 5 Hem On[address] [place] [address] Senile osteoporosis* Allergies No known active allergiesdocumented as of [...] TAKE 1 TABLET BY MOUTH DAILY FOR ANXIETY/DEPRESSI ON 90 Tablet 3 11/06/2023 Active busPIRone HCl [...] 04/02/2024 Active Vitamin D (Ergocalciferol) 1.25 MG (89680 UT) Oral Capsule (Drisdol) Take 1 Capsule by mouth once a week. 04/02/2024 Active Magnesium Oxide -Mg Supplement 400 (240 Mg) MG Oral Tablet (Mag-Ox)Indicati ons:Hypomagnesem ia TAKE 2 TABLETS BY MOUTH EVERY DAY 180 Tablet 1 07/12/2023 4 Discontinued documented as of this encounter [...] Sign Reading Time Taken Comments Blood Pressure - - Pulse - - Temperature - - Respiratory Rate - - Oxygen Saturation - - Inhaled Oxygen Concentration - - Weight 49 kg (108 lb 0.4 oz) 04/26/2024 10:00 AM EDT Height 155 cm (5' 1.02") 04/26/2024 10:00 AM EDT Body Mass Index 20.4 04/26/2024 10:00 AM EDT documented in this encounter Nursing Notes * Sudha Lafleur RN - 04/27/2024 11:44 AM EDT Reclast infusion complete. VAD flushed with 10 ml NSS and Heparin 5 ml (100 units/ml). Costa needle removed intact. Dry dressing applied. Goals: Patient will remain free from injury. Possible barriers to meeting goals: IV pump, unsteady gain, use of wheelchair Stability of the patient: Moderately unstable - medium risk of patient condition declining or worsening Summary regarding today's goals: Met: Patient remained free from injury during treatment. * Sudha Lafleur RN - 04/27/2024 11:00 AM EDT Chair 7. Patient arrived for Reclast infusion and port flush/labs. Port flushed easily and labs obtained. Patient with no complaints. Reclast infusion infusing per order. Safety and Risk for Injury Patient will remain free from injury. Ensure appropriate safety devices are available. Provide and maintain safe environment. documented in this encounter Plan of Treatment Upcoming Encounters Date Type Department Care Team (Latest Contact Info) Description 09/10/2024 8:00 AM [facility] Hospital Encounter ENDO [facility], Endoscopy Room [facility] [address] [place] [phone] Wdae Gomez MD [address] [place] [address] 09/10/2024 8:00 AM EST - 09/10/2024 8:30 AM EST Surgery ENDO [facility], Endoscopy Room [facility] [address] [place] [phone] Wade Gomez MD [address] [place] [address] COLONOSCOPY FLEXIBLE PROXIMAL DIAGNOSTIC 09/26/2024 11:15 AM EST Office Visit Hematology/Oncology [facility] [address] [place] [phone] Cuate Bowman MD [address] [place] [address] 05/17/2025 10:20 AM EDT Office Visit Rheumatology [address] [place] [phone] Live Spann MD [address] [place] [address] [place] [address] Scheduled Procedures Name Priority Associated Diagnoses Date/Ti [...] D LEVEL ONCE IN A LIFETIME-USE SMARTSET# [id number] Completed 04/16/2024, 05/04/2021, 09/01/2010 Lung Cancer Screening [...] this encounter Medical Devices Implanted Type Area Cellular Biologist Device Identifier Shelf Expiration Date Model / Serial / Lot Power Port 8fr Sngl Lumen Plas - [id number] Implanted:Qty : 1 on 04/21/2023 by Artemio Bynum DO at OR [facility] Right: Chest CR BARD : PERIPHERAL VASCULAR 06/21/2024 [id number] / / [id number] Power Port 8fr Sngl Lumen Plas - [id number] Implanted:Qty : 1 on 04/21/2023 by Artemio Bynum DO at OR [facility] CR BARD : PERIPHERAL VASCULAR [id number] 06/21/2024 [id number] / / [id number] documented as of this encounter Visit Diagnoses Diagnosis Senile osteoporosis- Primary Rectal cancer (HCC) Malignant neoplasm of rectum documented in this encounter Administered Medications Inactive Administered Medications - up to 3 most recent administrations Medication Order MAR Action Action Date Dose Rate Site hEParin 100 UNIT/ML Lock Flush inj 500 Units 500 Units (5 mL), IV Lock, PRN Other, IV Flush, Starting on Tue04/27/24 at 1019, Until Tue04/27/24 at 1553, For 24 hours, Do not flush if lock, PICC, or central line not in place; IV infusing or unable to flush. Given 04/27/2024 11:25 AM EDT 500 Units NSS infusion Intravenous, at 50 mL/hr, PRN, Starting on Tue04/27/24 at 1130, Until Tue04/27/24 at 1553, Maintenance line Start Infusion 04/27/2024 10:23 AM EDT 50 mL/hr sodium chloride 0.9 % flush central line 10 mL 10 mL, IV Push, PRN Other, IV Flush, Starting on Tue04/27/24 at 1019, Until Tue04/27/24 at 1553, For 24 hours, Do not flush if lock, PICC, or central line not in place; IV infusing or unable to flush. Given 04/27/2024 11:25 AM EDT 10 mL Zoledronic Acid (Reclast) 5 mg in 100 mL PREMIX ivpb 5 mg, IV Piggyback, ONCE, 1 dose, On Tue04/27/24 at 1130, Administer over 45 minutes for 1st infusion and 30 minutes for subsequent. Start Infusion 04/27/2024 10:26 AM EDT 5 mg 133.33 mL/hr documented in this encounter Advance Directives Healthcare Agents on File Name Relationship Healthcare Agent Relationshi p Communication Olivier Root Spouse Health Care Repr esentative (appointed verbally by patient or by statute hierarchy) Care Teams Drier Operator Helper Relationship Specialty Start Date End Date Shelli Ritter MD [address] [place] [address] [place] [address] PCP - General Family Medicine 10/30/15 documented as of this encounter
--- OUTSIDE RECORDS SUMMARY | 2024-11-29 02:21 | External Medical Summary | Summary of Care ---
Author Name Unknown Organization [facility] Address [address] [place] [address] Phone [phone] Care Team Providers Care Entry Level Electrician Name Role Phone Shelli Ritter MD Primary Care Provide r Reason for Visit * Reason Comments Infusion Reclast Procedure Port flush with labs * Episode Based Medications (Routine) - Closed Specialty Diagnoses / Procedures Referred By Anum t Referred To Contact Diagnoses Senile osteoporosis Procedures [place] ZOLEDRONIC ACID 1MG Live Spann MD [address] [place] [employer] [place] [address] Anc Hem/Onc [address] [address] Referral ID Status Reason Start Date Expiration Date Visits Re quested Visits Authorized [id number] Closed 04/16/2024 04/16/2025 99 99 Encounter Details Date Type Department Care Team (Latest Contact Info) Description 04/27/2024 10:15 AM EDT Hem/Onc Treatment Hematology/Oncology Treatment, [address] [phone] Carol, Chair 5 Hem On[address] [place] [address] Senile osteoporosis* Allergies No known active [...] 04/02/2024 Active Vitamin D (Ergocalciferol) 1.25 MG (07864 UT) Oral Capsule (Drisdol) Take 1 Capsule [...] (Latest Contact Info) Description 09/10/2024 8:00 AM [facility] Hospital Encounter ENDO [facility], Endoscopy Room [facility] [address] [place] [phone] Wade Gomez MD [address] [place] [address] 09/10/2024 8:00 AM EST - 09/10/2024 8:30 AM EST Surgery ENDO [facility], Endoscopy Room [facility] [address] [place] [phone] Wade Gomez MD [address] [place] [address] COLONOSCOPY FLEXIBLE PROXIMAL DIAGNOSTIC 09/26/2024 11:15 AM EST Office Visit Hematology/Oncology [facility] [address] [place] [phone] Cuate Bowman MD [address] [place] [address] 05/17/2025 10:20 AM EDT Office Visit Rheumatology [address] [place] [phone] Live Spann MD [address] [place] [address] [place] [address] Scheduled Procedures Name Priority Associated Diagnoses Date/Ti [...] D LEVEL ONCE IN A LIFETIME-USE SMARTSET# [id number] Completed 04/16/2024, 05/04/2021, 09/01/2010 Lung Cancer Screening [...] this encounter Medical Devices Implanted Type Area Viscose Department Worker Device Identifier Shelf Expiration Date Model / Serial / Lot Power Port 8fr Sngl Lumen Plas - [id number] Implanted:Qty : 1 on 04/21/2023 by Artemio Bynum DO at OR [facility] Right: Chest CR BARD : PERIPHERAL VASCULAR 06/21/2024 [id number] / / [id number] Power Port 8fr Sngl Lumen Plas - [id number] Implanted:Qty : 1 on 04/21/2023 by Artemio Bynum DO at OR [facility] CR BARD : PERIPHERAL VASCULAR [id number] 06/21/2024 [id number] / / [id number] documented as of this encounter Visit Diagnoses [...] patient or by statute hierarchy) Care Teams Entry Level Electrician Relationship Specialty Start Date End Date Shelli Ritter MD [address] [place] [address] [place] [address] PCP - General Family Medicine 10/30/15 documented as of this encounter
[2024-11-29 06:43] LABS: Hematocrit (blood only) 19.3 % (37.0-47.0); Mean Corpuscular Hgb Conc 31.1 g/dL (32.0-36.0); Mean Corpuscular Volume 77.2 fL (80.0-100.0); Mean Platelet Volume 10.1 fL (9.4-12.4); Platelet Count 219 K/uL (130-400); RDW Coefficient of Variation 18.6 % (11.5-14.5); RDW Standard Deviation 49.9 fL (36.4-46.3); White Blood Count 5.53 K/ul (4.8-10.8)
[2024-11-29] MEDS ORDERED: SODIUM CHLORIDE 0.9% 100 ML IV PRN ×2 (06:52→07:16)
[2024-11-29] MEDS: ALBUT/IPRATROP 3MG/0.5MG NEB 3 ML VIAL NEB SCH (07:17)
[2024-11-29 07:25] LABS: Albumin Level 2.3 gm/dl (3.4-5.0); BUN Creatinine Ratio 8.6 (10-20); Bilirubin Direct 0.6 mg/dl (0-0.2); Bilirubin,Total 1.3 mg/dl (0.2-1.0); Calcium 7.3 mg/dl (8.6-10.3); Creatinine Clr Calc Pharmacy 68.8 ml/min; Magnesium 2.4 mg/dl (1.7-2.4); Phosphorus 1.1 mg/dl (2.5-4.9); Potassium 4.2 mmol/L (3.5-5.1); Total Protein 5.1 gm/dl (6.0-8.3)
[2024-11-29] MEDS ORDERED: SODIUM PHOSPHATE 3 MMOL/1 ML INFUSION IV STA (07:27)
[2024-11-29] MEDS: SODIUM PHOSPHATE 30 MMOL in SODIUM CHLORIDE 0.9% 500 ML IV ONE (08:03)
[2024-11-29] MEDS: BENZONATATE 100 MG CAPSULE PO PRN (08:09)
[2024-11-29] MEDS: SERTRALINE HCL 100 MG TABLET PO SCH (08:10)
[2024-11-29] MEDS: MAGNESIUM OXIDE 400 MG TAB PO SCH (08:10)
[2024-11-29] MEDS: guaiFENesin 600 MG TABCR PO SCH (08:10)
[2024-11-29] MEDS: METOPROLOL TARTRATE 50 MG TAB PO SCH (08:11)
[2024-11-29] MEDS: THIAMINE HCL 100 MG TAB PO SCH (08:11)
[2024-11-29] MEDS: FOLIC ACID 1 MG TAB PO SCH (08:11)
[2024-11-29] MEDS: busPIRone 15 MG TAB PO SCH (08:11)
[2024-11-29] MEDS: FUROSEMIDE INJ 20 MG/2 ML VIAL IV ONE (08:11)
--- NOTE | 2024-11-29 08:26 | Orthopedic Consultation ---
Date of Service November 29, 2024 Assessment & Plan (1) Nondisplaced fracture of fifth right metatarsal bone: - Patient presented to the emergency department on 11/28/2024 for nonorthopedic reasons such as weakness, diarrhea, shortness of breath, etc. She has been admitted due to her medical issues. Orthopedics was consulted due to an acute fracture of the fifth metacarpal neck of the left hand. She was placed in an ulnar gutter Ortho-Glass splint in the emergency department. I think that this is fine for her to stay in for now. I would recommend at some point changing her to something more permanent for this. This will depend on how long she is in the hospital and her compliance with the DME/cast that is chosen. Would recommend a repeat x-ray in 5 to 7 days as well as transition to something permanent around that time. This can be done as an outpatient or inpatient if she is still here. Keep the Ortho-Glass splint on for now. Please reach out to orthopedics with any other question or concerns. History of Present Illness Reason for Consultation: left hand fracture Requesting Physician: . Attending Physician: Solomon Mckeon MD Rogerio is a 59-year-old female who reported to the emergency department yesterday on 11/28/2024 with shortness of breath, cough and diarrhea. She has been admitted to the hospital due to abnormal labs, diarrhea, weakness, etc. It was difficult to get a history from the patient but she states that she may have had a fall about 5 days ago. She states that she was trying to catch herself with her left hand. She was placed in an ulnar gutter splint in the emergency department as she was found to have a left fifth metacarpal fracture. Orthopedics is being consulted today for this specific injury. Allergies Allergy/AdvReac Type Severity Reaction Status Date / Time No Known Allergies Allergy Verified 03/22/24 17:36 Home Medications Medication Instructions Recorded Confirmed Type buspirone 15 mg tablet 15 mg PO BID 06/04/23 11/28/24 History folic acid 1 mg tablet 1 mg PO DAILY 06/04/23 11/28/24 History lisinopril 40 mg tablet 40 mg PO DAILY 06/04/23 11/28/24 History metoprolol tartrate 50 mg tablet 50 mg PO BID 06/04/23 11/28/24 History pantoprazole 40 mg tablet,delayed 40 mg PO QAM 06/04/23 11/28/24 History release sertraline 100 mg tablet 100 mg PO DAILY 06/04/23 11/28/24 History magnesium oxide 400 mg (241.3 mg 400 mg PO QAM #30 tabs 06/09/23 11/28/24 Rx magnesium) tablet Past Med/Surg History Problem List Diarrheal disease Metabolic acidosis RSV (respiratory syncytial virus pneumonia) Acute on chronic blood loss anemia Acute hyponatremia (Acute) Acute hypokalemia (Acute) Fracture of fifth metacarpal bone of left hand (Acute) RSV infection (Acute) Acute dyspnea (Acute) Hypomagnesemia (Acute) Anemia requiring transfusions (Acute) Nondisplaced fracture of fifth right metatarsal bone Right foot pain Hypokalemia (Acute) Weakness generalized (Acute) Frequent falls (Acute) T12 compression fracture Hypomagnesemia (Acute) Weakness (Acute) Closed fracture of right distal radius (Acute) Fall (Acute) Rectal cancer Bipolar affect, depressed Essential hypertension Acute electrocardiogram changes GI bleeding Alcohol abuse Acute GI bleeding (Acute) Anemia (Acute) Hyponatremia (Acute) Seizure (Chronic) Medical History History of peptic ulcer Feeling suicidal Depression Anxiety Fracture of lumbar spine Surgical History H/O colonoscopy H/O esophagogastroduodenoscopy S/P D&C (status post dilation and curettage) Family History Family/Other Cancer brain and lung from separate female cousins Social History Smoking Status: Former smoker Tobacco Type: Cigarettes Smoking End Date: 20 years; Second Hand Exposure: No; Do You Dip or Chew Tobacco: No; Hx Alcohol Use: Yes Alcohol type: beer Alcohol Intake Frequency: 4 or More x per/Week Alcohol Intake Frequency Comment: 6-9 16oz beer/day Hx Substance Use: No Preferred Language: Beninese Communication Ability: Effective Visual Impairment: No Limitations Hearing Ability: Normal Grinding Supervisor Required: No Beliefs That Will Affect Care: None Current Living Situation: Spouse Current Living Situation Comment: Home current occupational status: unemployed Other Information That Helps Us Care for You: No Feels Safe at Home: Yes Safety Concerns: Feels Safe At This Time during the past year weight has: remained stable Assistive Devices: Cane, Glasses, Walker and Wheelchair Review of Systems All systems reviewed & are unremarkable except as noted in HPI & below. Physical Exam Gen : Alert. In no acute distress. Constitutional WD/WN, vitals as above Musculoskeletal Left hand and wrist: I did remove the Supa wrap and the ulnar gutter splint. I left the web roll on. In regards to tenderness, she is nontender to the wrist, specifically the radius or ulna. She does not have any carpal bone tenderness. She is tender to the fifth metacarpal. She is neurovascularly intact in the left upper extremity. Results & Data Results & Data Laboratory Results . Diagnostic Findings Xray od the left hand on 11/29/23. Impression: 1. Acute fracture of the fifth metacarpal neck 2. Age-indeterminate fractures of the bases of the fourth and fifth finger proximal phalanges 3. Old fractures of the distal radius and ulna 4. Osteopenia PG Care Time/CCT Total # of Minutes Spent Total Time Spent with Patient: Total time spent is greater than 50% in coordination of care (as documented) at patient's floor/unit and/or counseling patient: Coding Diagnoses Nondisplaced fracture of fifth right metatarsal bone S92.354A
[2024-11-29] MEDS ORDERED: NYSTATIN POWDER 15GM BTL EXT PRN (09:49)
--- NOTE | 2024-11-29 11:05 | Gastrointestinal Consultation ---
Date of Consultation November 29, 2024 Assessment & Plan (1) Rectal cancer: Suspect that bleeding is likely coming from known rectal cancer. She had stopped chemo in the past, though did complete radiation. She has not followed up with colorectal surgery for further evaluation of her rectal cancer and does not provide me with a reason as to why. - continue to follow hgb/hct, transfuse as needed. she is awaiting a 3rd unit of PRBC. - she will need to have evaluation with colorectal surgery given her known rectal cancer. - Could consider other etiologies to bleeding such as radiation proctitis, though would not pursue an endoscopic procedure at this time given active RSV. - patient seems indifferent to treating her known rectal cancer. could consider psych evaluation. Supervising Physician Co-Signing Physician Notes I saw and examined this patient with our nurse practitioner and agree with her assessment and plan. Significant anemia due to chronic GI blood loss likely related to known rectal cancer less likely due to radiation proctitis. Continue to resuscitate her with blood and treat her underlying pulmonary condition. We can consider doing a sigmoidoscopy or colonoscopy once she improves. Consider having her meet with palliative care to determine what her goals are for recovery and treatment options. History of Present Illness Reason for Consultation: anemia, rectal cancer Requesting Physician: Andry Peck DO Attending Physician: Solomon Mckeon MD History of Present Illness Patient is a 59 year old female with a past medical history of a known rectal cancer found on a colonoscopy on 12/2022 that indicated a frond-like mass 10 cm proximal to the anus and biopsies returned as an infiltrative adenocarcinoma. She notes that she was seeing oncology & colorectal surgery through [facility], however she notes that she stopped chemotherapy early due to side effects. She did complete radiation and was to have surgery with the colorectal team, though she admits that she has not followed up with surgery on this. She did not provide reasoning for why she did not follow up on this. She came to the ED on 11/28 with complaint of shortness of breath, cough and diarrhea x 2 weeks. she was found to have RSV and was admitted. She has not had further diarrhea since admission. stool studies ordered but unable to collect as of yet in light of no stools. she reports that she has had rectal bleeding that has been ongoing for over 2 years. Hgb upon evaluation in ED was 4.5. she was transfused with 2 units and this improved to 6. she is awaiting a 3rd unit which is in transit from [place] per nursing. rest of GI ros are unremarkable. CT 11/28/24 1. Circumferential wall thickening and edema involving the anus and rectum, appearing in the interval, compatible with Proctitis. Please correlate if there has been radiation to this area as it could represent radiation proctitis. Perirectal inflammatory change noted, increased. An underlying mass is not excluded. 2. Urinary bladder wall thickening with perivesicular inflammatory change, progressed in the interval. As above, this finding could represent cystitis secondary to radiation. 3. Advanced osseous demineralization and heterogeneously sclerotic appearance of the sacrum and multiple vertebral bodies with lumbar spine compression fractures. 4. Mild new tree-in-bud nodular attenuation in the left lung base representing bronchiolitis. Allergies Allergy/AdvReac Type Severity Reaction Status Date / Time No Known Allergies Allergy Verified 03/22/24 17:36 Home Medications Medication Instructions Recorded Confirmed Type buspirone 15 mg tablet 15 mg PO BID 06/04/23 11/28/24 History folic acid 1 mg tablet 1 mg PO DAILY 06/04/23 11/28/24 History lisinopril 40 mg tablet 40 mg PO DAILY 06/04/23 11/28/24 History metoprolol tartrate 50 mg tablet 50 mg PO BID 06/04/23 11/28/24 History pantoprazole 40 mg tablet,delayed 40 mg PO QAM 06/04/23 11/28/24 History release sertraline 100 mg tablet 100 mg PO DAILY 06/04/23 11/28/24 History magnesium oxide 400 mg (241.3 mg 400 mg PO QAM #30 tabs 06/09/23 11/28/24 Rx magnesium) tablet Patient History Medical History History of peptic ulcer Feeling suicidal Depression Anxiety Fracture of lumbar spine Surgical History H/O colonoscopy H/O esophagogastroduodenoscopy S/P D&C (status post dilation and curettage) Family History Family/Other Cancer brain and lung from separate female cousins Social History Smoking Status: Former smoker Tobacco Type: Cigarettes Smoking End Date: 20 years; Second Hand Exposure: No; Do You Dip or Chew Tobacco: No; Hx Alcohol Use: Yes Alcohol type: beer Alcohol Intake Frequency: 4 or More x per/Week Alcohol Intake Frequency Comment: 6-9 16oz beer/day Hx Substance Use: No Preferred Language: Greek Communication Ability: Effective Visual Impairment: No Limitations Hearing Ability: Normal Tractor Technician Required: No Beliefs That Will Affect Care: None Current Living Situation: Spouse Current Living Situation Comment: Home current occupational status: unemployed Other Information That Helps Us Care for You: No Feels Safe at Home: Yes Safety Concerns: Feels Safe At This Time during the past year weight has: remained stable Assistive Devices: Walker and Wheelchair Review of Systems Review of Systems: All systems reviewed & are unremarkable except as noted in HPI & below Physical Exam Constitutional: WD/WN, vitals as above Respiratory: normal respiratory effort, lungs clear to auscultation Cardiovascular: Rate/Rhythm: regular rate and regular rhythm Gastrointestinal (Abdomen): normal bowel sounds, soft, nontender, no hepatosplenomegaly Psychiatric: Orientation: alert and oriented x 3 Affect: euthymic affect Results & Data Vital Signs (Past 12 Hours) Vital Signs Temp Pulse Pulse Resp BP BP Pulse Ox 11/29/24 09:26 11/29/24 09:23 90 11/29/24 08:00 98.1 F 93 H 22 137/87 100 11/29/24 07:49 91 H 18 95 11/29/24 04:50 97.9 F 88 18 137/75 97 11/29/24 04:48 97.9 F 89 18 137/75 97 11/29/24 03:48 98.1 F 90 18 137/80 96 11/29/24 02:48 98.4 F 93 H 18 135/79 96 11/29/24 02:18 98.1 F 93 H 18 143/79 H 99 11/29/24 02:03 98.1 F 93 H 18 147/80 H 100 11/29/24 02:03 98.1 F 93 H 18 147/80 H 100 11/29/24 01:47 97.9 F 90 18 134/88 100 11/29/24 01:27 98.1 F 91 H 18 148/77 H 99 11/29/24 00:50 98.1 F 93 H 18 145/78 H 100 11/29/24 00:35 11/29/24 00:35 100 H 11/29/24 00:35 98.1 F 96 H 18 150/81 H 99 11/28/24 23:50 98 H 18 132/53 L 99 11/28/24 23:40 98 H 22 134/79 100 O2 Del Method 11/29/24 09:26 Room Air 11/29/24 09:23 11/29/24 08:00 Room Air 11/29/24 07:49 Room Air 11/29/24 04:50 11/29/24 04:48 11/29/24 03:48 11/29/24 02:48 11/29/24 02:18 11/29/24 02:03 11/29/24 02:03 11/29/24 01:47 11/29/24 01:27 11/29/24 00:50 11/29/24 00:35 Room Air 11/29/24 00:35 11/29/24 00:35 Room Air 11/28/24 23:50 11/28/24 23:40 Room Air Laboratory Results Laboratory Results - last 48 hr 11/28/24 11/28/24 11/28/24 18:40 18:45 18:47 WBC Cancelled RBC Cancelled Hgb Cancelled Hct Cancelled MCV Cancelled MCH Cancelled MCHC Cancelled RDW Std Deviation Cancelled RDW Coeff of Kendall Cancelled Plt Count Cancelled MPV Cancelled Immature Gran % (Auto) Cancelled Neut % (Auto) Cancelled Lymph % (Auto) Cancelled [place] % (Auto) Cancelled Eos % (Auto) Cancelled Baso % (Auto) Cancelled Neut # (Auto) Cancelled Lymph # (Auto) Cancelled [place] # (Auto) Cancelled Eos # (Auto) Cancelled Baso # (Auto) Cancelled Immature Gran # (Auto) Cancelled Absolute Nucleated RBC Cancelled Nucleated RBC % (auto) Cancelled Neutrophils % (Manual) Cancelled Band Neutrophils % Cancelled Lymphocytes % (Manual) Cancelled Prolymphocyte % Cancelled Reactive Lymphs % (Man) Cancelled Monocytes % (Manual) Cancelled Eosinophils % (Manual) Cancelled Basophils % (Manual) Cancelled Metamyelocytes % (Man) Cancelled Myelocytes % (Man) Cancelled Promyelocytes % (Man) Cancelled Blast Cells % (Manual) Cancelled Plasma Cell % (Manual) Cancelled Other Cells % Cancelled Nucleated RBC % Cancelled Neutrophils # (Manual) Cancelled Band Neutrophils # Cancelled Total Absolute Neuts Cancelled Lymphocytes # (Manual) Cancelled Prolymphocyte # Cancelled Reactive Lymphs # Cancelled Total Abs Lymphocytes Cancelled Monocytes # (Manual) Cancelled Eosinophils # (Manual) Cancelled Basophils # (Manual) Cancelled Metamyelocytes # (Man) Cancelled Myelocytes # (Manual) Cancelled Promyelocytes # (Man) Cancelled Blast Cells # (Man) Cancelled Plasma Cell # (Manual) Cancelled Other Cells # Cancelled Nucleated RBCs # (Man) Cancelled Hypersegmented Neuts Cancelled Hyposegmented Neuts Cancelled Hypogranular Neuts Cancelled Large Granular Lymphs Cancelled # Lrg Granular Lymphs Cancelled Hairy Cells Cancelled Smudge Cells Cancelled Toxic Granulation Cancelled Toxic Vacuolation Cancelled Dohle Bodies Cancelled Sharan Rods Cancelled Platelet Estimate Cancelled Hypogranular Platelets Cancelled Giant Platelets Cancelled Platelet Satelliting Cancelled RBC Morphology Cancelled Polychromasia Cancelled Hypochromasia Cancelled Poikilocytosis Cancelled Basophilic Stippling Cancelled Anisocytosis Cancelled Microcytosis Cancelled Macrocytosis Cancelled Spherocytes Cancelled Pappenheimer Bodies Cancelled Sickle Cells Cancelled Target Cells Cancelled Tear Drop Cells Cancelled Ovalocytes Cancelled Stomatocytes Cancelled [place] Bodies Cancelled Echinocytes Cancelled Acanthocytes (Spur) Cancelled Rouleaux Cancelled RBC Agglutinates Cancelled Schistocytes Cancelled Sezary Cell Cancelled PT 11.5 INR 1.1 Sodium 126 L Potassium 3.3 L Chloride 96 L Carbon Dioxide 14 L Anion Gap 16 H BUN 6 Creatinine 0.57 L Est Cr Clr Drug Dosing 73.6 eGFR 103.33 BUN/Creatinine Ratio 10.5 Glucose 99 Lactate Calcium 7.2 L Phosphorus Magnesium 1.4 L Iron 22 L Transferrin 147 L Ferritin 87.9 Total Bilirubin 0.8 Direct Bilirubin AST 97 H ALT 54 H Alkaline Phosphatase 188 H Troponin I High Sens 5.8 Total Protein 5.1 L Albumin 2.5 L Globulin 2.6 Albumin/Globulin Ratio 1.0 Lipase 45 Vitamin B12 1057 H Folate > 22.30 Procalcitonin 0.15 TSH 1.652 Urine Color Urine Appearance Urine pH Ur Specific [place] Urine Protein Urine Glucose (UA) Urine Ketones Urine Blood Urine Nitrite Urine Bilirubin Urine Urobilinogen Ur Leukocyte Esterase SARS-CoV-2 (PCR) NEGATIVE Influenza Type A (PCR) Negative Influenza Type B (PCR) Negative RSV (RT-PCR) Positive A Blood Parasites ID Cancelled Blood Type Antibody Screen Crossmatch 11/28/24 11/28/24 11/28/24 19:21 20:02 21:00 WBC 5.28 RBC 1.97 L Hgb 4.5 L* Hct 15.4 L* MCV 78.2 L MCH 22.8 L MCHC 29.2 L RDW Std Deviation 51.2 H RDW Coeff of Kendall 19.1 H Plt Count 272 MPV 9.5 Immature Gran % (Auto) 0.6 Neut % (Auto) 87.8 Lymph % (Auto) 5.7 [place] % (Auto) 5.9 Eos % (Auto) 0.0 Baso % (Auto) 0.0 Neut # (Auto) 4.64 Lymph # (Auto) 0.30 L [place] # (Auto) 0.31 Eos # (Auto) 0.00 Baso # (Auto) 0.00 Immature Gran # (Auto) 0.03 Absolute Nucleated RBC Nucleated RBC % (auto) Neutrophils % (Manual) Band Neutrophils % Lymphocytes % (Manual) Prolymphocyte % Reactive Lymphs % (Man) Monocytes % (Manual) Eosinophils % (Manual) Basophils % (Manual) Metamyelocytes % (Man) Myelocytes % (Man) Promyelocytes % (Man) Blast Cells % (Manual) Plasma Cell % (Manual) Other Cells % Nucleated RBC % Neutrophils # (Manual) Band Neutrophils # Total Absolute Neuts Lymphocytes # (Manual) Prolymphocyte # Reactive Lymphs # Total Abs Lymphocytes Monocytes # (Manual) Eosinophils # (Manual) Basophils # (Manual) Metamyelocytes # (Man) Myelocytes # (Manual) Promyelocytes # (Man) Blast Cells # (Man) Plasma Cell # (Manual) Other Cells # Nucleated RBCs # (Man) Hypersegmented Neuts Hyposegmented Neuts Hypogranular Neuts Large Granular Lymphs # Lrg Granular Lymphs Hairy Cells Smudge Cells Toxic Granulation Toxic Vacuolation Dohle Bodies Sharan Rods Platelet Estimate Hypogranular Platelets Giant Platelets Platelet Satelliting RBC Morphology Polychromasia 1+ Hypochromasia Poikilocytosis Basophilic Stippling Anisocytosis Microcytosis Macrocytosis Spherocytes Pappenheimer Bodies Sickle Cells Target Cells Tear Drop Cells Ovalocytes Stomatocytes Martinez-[place] Bodies Echinocytes Acanthocytes (Spur) Rouleaux RBC Agglutinates Schistocytes Sezary Cell PT INR Sodium Potassium Chloride Carbon Dioxide Anion Gap BUN Creatinine Est Cr Clr Drug Dosing eGFR BUN/Creatinine Ratio Glucose Lactate 1.9 Calcium Phosphorus Magnesium Iron Transferrin Ferritin Total Bilirubin Direct Bilirubin AST ALT Alkaline Phosphatase Troponin I High Sens Total Protein Albumin Globulin Albumin/Globulin Ratio Lipase Vitamin B12 Folate Procalcitonin TSH Urine Color Yellow Urine Appearance Clear Urine pH 5.5 Ur Specific [place] 1.034 H Urine Protein Negative Urine Glucose (UA) Negative Urine Ketones 3+ H Urine Blood Negative Urine Nitrite Negative Urine Bilirubin Negative Urine Urobilinogen Negative Ur Leukocyte Esterase Negative SARS-CoV-2 (PCR) Influenza Type A (PCR) Influenza Type B (PCR) RSV (RT-PCR) Blood Parasites ID Blood Type O Positive Antibody Screen NEGATIVE Crossmatch See Detail 11/29/24 05:45 WBC 5.53 RBC 2.50 L Hgb 6.0 L* Hct 19.3 L* MCV 77.2 L MCH 24.0 L MCHC 31.1 L RDW Std Deviation 49.9 H RDW Coeff of Kendall 18.6 H Plt Count 219 MPV 10.1 Immature Gran % (Auto) Neut % (Auto) Lymph % (Auto) [place] % (Auto) Eos % (Auto) Baso % (Auto) Neut # (Auto) Lymph # (Auto) [place] # (Auto) Eos # (Auto) Baso # (Auto) Immature Gran # (Auto) Absolute Nucleated RBC Nucleated RBC % (auto) Neutrophils % (Manual) Band Neutrophils % Lymphocytes % (Manual) Prolymphocyte % Reactive Lymphs % (Man) Monocytes % (Manual) Eosinophils % (Manual) Basophils % (Manual) Metamyelocytes % (Man) Myelocytes % (Man) Promyelocytes % (Man) Blast Cells % (Manual) Plasma Cell % (Manual) Other Cells % Nucleated RBC % Neutrophils # (Manual) Band Neutrophils # Total Absolute Neuts Lymphocytes # (Manual) Prolymphocyte # Reactive Lymphs # Total Abs Lymphocytes Monocytes # (Manual) Eosinophils # (Manual) Basophils # (Manual) Metamyelocytes # (Man) Myelocytes # (Manual) Promyelocytes # (Man) Blast Cells # (Man) Plasma Cell # (Manual) Other Cells # Nucleated RBCs # (Man) Hypersegmented Neuts Hyposegmented Neuts Hypogranular Neuts Large Granular Lymphs # Lrg Granular Lymphs Hairy Cells Smudge Cells Toxic Granulation Toxic Vacuolation Dohle Bodies Sharan Rods Platelet Estimate Hypogranular Platelets Giant Platelets Platelet Satelliting RBC Morphology Polychromasia Hypochromasia Poikilocytosis Basophilic Stippling Anisocytosis Microcytosis Macrocytosis Spherocytes Pappenheimer Bodies Sickle Cells Target Cells Tear Drop Cells Ovalocytes Stomatocytes Martinez-[place] Bodies Echinocytes Acanthocytes (Spur) Rouleaux RBC Agglutinates Schistocytes Sezary Cell PT INR Sodium 127 L Potassium 4.2 D Chloride 101 Carbon Dioxide 17 L Anion Gap 9 BUN 5 L Creatinine 0.58 L Est Cr Clr Drug Dosing 68.8 eGFR 102.89 BUN/Creatinine Ratio 8.6 L Glucose 142 H Lactate Calcium 7.3 L Phosphorus 1.1 L* Magnesium 2.4 Iron Transferrin Ferritin Total Bilirubin 1.3 H D Direct Bilirubin 0.6 H AST 86 H ALT 53 H Alkaline Phosphatase 183 H Troponin I High Sens Total Protein 5.1 L Albumin 2.3 L Globulin Albumin/Globulin Ratio Lipase Vitamin B12 Folate Procalcitonin TSH Urine Color Urine Appearance Urine pH Ur Specific [place] Urine Protein Urine Glucose (UA) Urine Ketones Urine Blood Urine Nitrite Urine Bilirubin Urine Urobilinogen Ur Leukocyte Esterase SARS-CoV-2 (PCR) Influenza Type A (PCR) Influenza Type B (PCR) RSV (RT-PCR) Blood Parasites ID Blood Type Antibody Screen Crossmatch Diagnostic Findings Abdomen/Pelvis CT 11/28/24 18:27 EXAMINATION: Abdomen and pelvis CT with CLINICAL HISTORY: Diarrhea, history of colon cancer PRIORS: 03/22/2024 TECHNIQUE: Contiguous axial images were obtained through the abdomen and pelvis with the use of intravenous contrast. Sagittal and coronal reformations are supplied. FINDINGS: Mild tree-in-bud opacity present in the visualized left lung base.. Fatty infiltration of the liver noted. No hepatic masses identified. Possible small gallbladder polyp in the fundus, image 122, series 3 measuring 4 mm, unchanged. The portal vein, pancreas, spleen, under distended stomach, and adrenals are morphologically unremarkable. Moderate atherosclerotic disease of the abdominal aorta. IVC unremarkable. Kidneys enhance symmetrically. Urinary bladder distended with moderate wall thickening and perivesicular inflammatory change, increased in the interval. Circumferential wall thickening of the anus and rectum is noted, appearing in the interval, image 286, series 3 with moderate perirectal inflammatory change, increased. No discrete mass. Submucosal contrast enhancement noted. No significant amount of stool noted in the colon. Gas present in the transverse colon. No dilated loops of bowel or bowel obstruction. Mild diffuse induration of the mesentery noted with no soft tissue nodules or ascites. No extraluminal gas. Advanced osseous demineralization with sclerosis and lucency of the sacrum, not significantly changed. Moderate lumbar scoliosis, convex to the left with advanced degenerative change noted with multiple compression fractures, age-indeterminate. Underlying osseous metastases is not excluded and/or radiation change. IMPRESSION: 1. Circumferential wall thickening and edema involving the anus and rectum, appearing in the interval, compatible with Proctitis. Please correlate if there has been radiation to this area as it could represent radiation proctitis. Perirectal inflammatory change noted, increased. An underlying mass is not excluded. 2. Urinary bladder wall thickening with perivesicular inflammatory change, progressed in the interval. As above, this finding could represent cystitis secondary to radiation. 3. Advanced osseous demineralization and heterogeneously sclerotic appearance of the sacrum and multiple vertebral bodies with lumbar spine compression fractures. 4. Mild new tree-in-bud nodular attenuation in the left lung base representing bronchiolitis. ACT 112: Positive. There are findings on this examination that require communication between the performing entity and the patient following Patient Test Result Information Act ([place] ACT 112) guidelines. Electronically signed by Shawnee Sanchez 11-28-2024 8:16 PM Chest X-Ray 11/28/24 18:27 Clinical History: Cough Technique: A frontal view of the chest was obtained Comparison is made to the prior examination dated 03/22/2024 Findings: There is new mild interstitial prominence in both lower lobes. The heart size is within normal limits. No pleural effusion or pneumothorax is seen. There is no definite pulmonary nodule. There is an unchanged right chest wall port with its tip in the lower SVC. There is an unchanged old right rib fracture. There is scoliosis. There is mild elevation of the left hemidiaphragm Impression: Possible bilateral lower lobe bronchopneumonia ACT 112: Positive. There are findings on this exam that require communication between the performing entity and the patient following Patient Test Result Information Act ([place] ACT 112) guidelines. Electronically signed by Scotty Chery 11-28-2024 7:36 PM Hand X-Ray 11/28/24 18:31 Clinical History: Bruising after fall 4 views of the left hand are submitted for review. Findings: There is an acute fracture of the fifth metacarpal neck with mild displacement and angulation. There are age indeterminate fractures of the bases of the fourth and fifth finger proximal phalanges. There is deformity of the distal radial metaphysis, likely due to an old healed fracture. There is a suspected old nonunited fracture of the ulnar styloid process. No subluxation or dislocation is seen. There is osteopenia. There is mild osteoarthritis of the thumb carpometacarpal joint. No other osseous abnormality is identified. There are no radiopaque foreign bodies. Impression: 1. Acute fracture of the fifth metacarpal neck 2. Age-indeterminate fractures of the bases of the fourth and fifth finger proximal phalanges 3. Old fractures of the distal radius and ulna 4. Osteopenia ACT 112: Positive. There are findings on this exam that require communication between the performing entity and the patient following Patient Test Result Information Act ([place] ACT 112) guidelines. Electronically signed by Scotty Chery 11-28-2024 7:30 PM Coding Level of Care Code 54032 IN/OBS CONSULT LVL 4,60M Diagnoses Rectal cancer C20
[2024-11-29] MEDS: ACETAMINOPHEN 325 MG TAB PO ONE (12:50)
--- NOTE | 2024-11-29 15:27 | Hospitalist Progress Note ---
Date of Service November 29, 2024 Assessment & Plan (1) Acute on chronic blood loss anemia: Plan: -in setting of known colorectal cancer -noncompliance outpatient with follow ups and chemotherapy treatment, did finish radiation course -differential includes colorectal cancer hemorrhage (most likely) diverticular bleed, less likely hemorrhoids Plan: -transfer to [facility] [place], accepted for colorectal evaluation -appreciate GI input, appreciate surgery discussion regarding need for colorectal surgery evaluation -transfusion goal Hgb>7 -q12hr CBC -start maintenance fluids given poor PO intake and blood transfusions (2) RSV (respiratory syncytial virus pneumonia): Plan: -supportive care -likely making clinical situation worse (3) Acute hyponatremia: Plan: -in setting of alcohol use -trend daily (4) Diarrheal disease: Plan: -in setting of proctitis and inflammation -possibly late effect from radiation although could be infectious in nature as well -very low phos likely 2/2 diarrhea Plan: -trend diarrhea -replenish fluids -stool studies ordered -hospice community liaison consult, appreciate recs -PT/OT case management consults (5) Metabolic acidosis: Plan: -in setting of above -likely 2/2 blood loss anemia (6) Acute hypokalemia: Plan: -replenished (7) Alcohol abuse: Plan: -EARL protocol -8-9 beers daily (8) Fracture of fifth metacarpal bone of left hand: Plan: -noted, appreciate ortho recs (9) Hypomagnesemia: Plan: -replenished (10) Rectal cancer: Plan: -needs f/u outpatient for further treatment -see above Plan I spent a total of 60 minutes in direct patient care, including [id number] time with the patient and/or family, reviewing medical records, ordering and reviewing diagnostic tests, and coordinating care with other healthcare providers. This time includes: history taking, physical examination, medical decision making, counseling, ECG interpretation, imaging interpretation, lab interpretation, orders, and education, excluding time spent in the performance of separately billed services. Admission and Anticipated Discharge Date Admission Date: November 28, 2024 Subjective patient seen and examined at bedside. Patient quite flat at this time. States that she has been bleeding for the past week, maybe longer. States she continues to drink alcohol up to 10 beers daily. States she has not felt well for the past week or so. Review of Systems Review of Systems: CONSTITUTIONAL: weight loss, fatigue, weakness EYES: Patient denies any visual symptoms. EARS, NOSE, AND THROAT: No difficulties with hearing. No symptoms of rhinitis or sore throat. CARDIOVASCULAR: Patient denies chest pains, palpitations, orthopnea and paroxysmal nocturnal dyspnea. RESPIRATORY: No dyspnea on exertion, no wheezing or cough. GI: sana red blood per rectum : No urinary hesitancy or dribbling. No nocturia or urinary frequency. No abnormal urethral discharge. MUSCULOSKELETAL: No myalgias or arthralgias. NEUROLOGIC: No chronic headaches, no seizures. Patient denies numbness, tingling or weakness. PSYCHIATRIC: Patient denies problems with mood disturbance. No problems with anxiety. ENDOCRINE: No excessive urination or excessive thirst. DERMATOLOGIC: Patient denies any rashes or skin changes. Physical Exam Physical Exam: Gen: A&O 3 NAD HEENT: NCAT, EOMI, not icteric. External ears normal. No rhinorrhea. Moist mucous membranes. Pale conjunctiva Neck: Supple, full range of motion, no observable masses, No meningeal sign. Lungs: No Respiratory distress. CV: RRR, no edema. Abdomen: Soft, nondistended, No rebound tenderness. MSK: No joint swelling, no redness. Skin: noted wounds on back, sana red blood around rectum Neuro: Normal Gait, Grossly intact. Psych: flat affect Results & Data Results & Data Vital Signs (Past 12 Hours) Vital Signs Temp Pulse Pulse Resp BP BP Pulse Ox 11/29/24 14:47 36.8 C 92 H 18 128/73 100 11/29/24 14:11 99 H 11/29/24 13:47 36.9 C 94 H 20 125/73 100 11/29/24 13:17 36.8 C 94 H 20 122/72 100 11/29/24 13:02 36.6 C 105 H 20 127/72 100 11/29/24 12:46 37.0 C 99 H 20 122/72 100 11/29/24 11:22 90 16 98 11/29/24 11:18 36.8 C 91 H 18 121/68 99 11/29/24 09:26 11/29/24 09:23 90 11/29/24 08:00 36.7 C 93 H 22 137/87 100 11/29/24 07:49 91 H 18 95 11/29/24 04:50 36.6 C 88 18 137/75 97 11/29/24 04:48 36.6 C 89 18 137/75 97 11/29/24 03:48 36.7 C 90 18 137/80 96 O2 Del Method 11/29/24 14:47 11/29/24 14:11 11/29/24 13:47 11/29/24 13:17 11/29/24 13:02 11/29/24 12:46 11/29/24 11:22 Room Air 11/29/24 11:18 Room Air 11/29/24 09:26 Room Air 11/29/24 09:23 11/29/24 08:00 Room Air 11/29/24 07:49 Room Air 11/29/24 04:50 11/29/24 04:48 11/29/24 03:48 Laboratory Results -personally reviewed, Hgb of 4.5 that came up to 6 with blood, phos of 1.1 Medications Administered Albuterol (Albut/Ipratrop 3mg/0.5mg Neb 3 Ml Vial) 3 ml NEB QIDR [facility]; Protocol Stop: 12/29/24 06:59 Last Admin: 11/29/24 16:00 Dose: 3 ml Documented By: Admin: 11/29/24 11:22 Dose: 3 ml Documented By: Admin: 11/29/24 07:17 Dose: 3 ml Documented By: CASTILLO Benzonatate (Benzonatate 100 Mg Capsule) 100 mg PO TID PRN PRN Reason: cough Stop: 12/29/24 00:34 Last Admin: 11/29/24 08:09 Dose: 100 mg Documented By: RONALD Buspirone HCl (Buspirone 15 Mg Tab) 15 mg PO BID [facility] Stop: 12/29/24 08:59 Last Admin: 11/29/24 08:11 Dose: 15 mg Documented By: RONALD Folic Acid (Folic Acid 1 Mg Tab) 1 mg PO DAILY [facility] Stop: 12/29/24 08:59 Last Admin: 11/29/24 08:11 Dose: 1 mg Documented By: RONALD Guaifenesin (Guaifenesin 600 Mg Tabcr) 600 mg PO Q12 [facility]J Stop: 12/29/24 08:59 Last Admin: 11/29/24 08:10 Dose: 600 mg Documented By: RONALD Pantoprazole Sodium (Protonix) 40 mg in 10 mls @ 5 mls/min IV BID [facility]J Stop: 12/28/24 21:29 Last Admin: 11/29/24 11:13 Dose: 5 mls/min Documented By: Admin: 11/28/24 22:00 Dose: 5 mls/min Documented By: AMADEO Magnesium Oxide (Magnesium Oxide 400 Mg Tab) 400 mg PO QA TAJ Stop: 12/29/24 08:59 Last Admin: 11/29/24 08:10 Dose: 400 mg Documented By: RONALD Metoprolol Tartrate (Metoprolol Tartrate 50 Mg Tab) 50 mg PO BID TAJ Stop: 12/29/24 08:59 Last Admin: 11/29/24 08:11 Dose: 50 mg Documented By: RONALD Sertraline HCl (Sertraline Hcl 100 Mg Tablet) 100 mg PO DAILY [facility]J Stop: 12/29/24 08:59 Last Admin: 11/29/24 08:10 Dose: 100 mg Documented By: RONALD Thiamine HCl (Thiamine Hcl 100 Mg Tab) 100 mg PO QA TAJ Stop: 12/29/24 08:59 Last Admin: 11/29/24 08:11 Dose: 100 mg Documented By: RONALD
[2024-11-29 17:04] LABS: Hematocrit (blood only) 24.9 % (37.0-47.0); Mean Corpuscular Hemoglobin 25.5 pg (25.0-34.0); Mean Corpuscular Hgb Conc 32.1 g/dL (32.0-36.0); Mean Corpuscular Volume 79.3 fL (80.0-100.0); Mean Platelet Volume 9.2 fL (9.4-12.4); Platelet Count 235 K/uL (130-400); RDW Coefficient of Variation 20.6 % (11.5-14.5); RDW Standard Deviation 58.4 fL (36.4-46.3); Red Blood Count 3.14 M/uL (4.20-5.40); White Blood Count 6.68 K/ul (4.8-10.8)
--- NOTE | 2024-11-29 18:49 | Discharge Summary ---
Discharge Summary Date of Service November 29, 2024 Principal Dx & Hospital Course #1 = Principal Diagnosis (1) Acute on chronic blood loss anemia: -in setting of known colorectal cancer -noncompliance outpatient with follow ups and chemotherapy treatment, did finish radiation course -differential includes colorectal cancer hemorrhage (most likely) diverticular bleed, less likely hemorrhoids Plan: -transfer to [facility] [place], accepted for colorectal evaluation -appreciate GI input, appreciate surgery discussion regarding need for colorectal surgery evaluation -transfusion goal Hgb>7 -q12hr CBC -start maintenance fluids given poor PO intake and blood transfusions (2) RSV (respiratory syncytial virus pneumonia): -supportive care -likely making clinical situation worse (3) Acute hyponatremia: -in setting of alcohol use -trend daily (4) Diarrheal disease: -in setting of proctitis and inflammation -possibly late effect from radiation although could be infectious in nature as well -very low phos likely 2/2 diarrhea Plan: -trend diarrhea -replenish fluids -stool studies ordered -jewel grinder consult, appreciate recs -PT/OT case management consults (5) Metabolic acidosis: -in setting of above -likely 2/2 blood loss anemia (6) Acute hypokalemia: -replenished (7) Alcohol abuse: -EARL protocol -8-9 beers daily (8) Fracture of fifth metacarpal bone of left hand: -noted, appreciate ortho recs (9) Hypomagnesemia: -replenished (10) Rectal cancer: -needs f/u outpatient for further treatment -see above Notes For Next Care Provider Patient is a 59-year-old female with known history of colorectal cancer status post radiation and partial treatment with chemotherapy. Also has chronic blood loss and iron deficiency anemia. Patient also has a history of significant alcoholism and associated hyponatremia. On arrival noted to have Hgb of 4.5, given 3 units of blood. Given aggressive electrolyte replenishment for phos of 1, low Mg and K. GI and general surgery were consulted, both recommended transfer to higher level of care for evaluation of acute hemorrhage 2/2 colorectal malignancy. Patient transferred in stable condition. Medication Changes From Visit -see below Admission HPI Per Admitting Provider Patient is a 59-year-old female with known history of colorectal cancer status post radiation and partial treatment with chemotherapy. Also has chronic blood loss and iron deficiency anemia. Patient also has a history of significant alcoholism and associated hyponatremia. Presents to the emergency room with above complaints. She reports that she has been having diarrhea for almost 2 weeks she states that at times the stool has been bloody but no dark or tarry stool. She states that she has not been eating or drinking much over the last 2 weeks. In the emergency room was noted to be severely anemic and multiple electrolyte abnormalities. She also tested positive for RSV. She was referred to our service for further evaluation. Time my evaluation the patient was alert and able to answer questions appropriately. She confirms the above history. She states that she feels short of breath when she tried to do anything but no chest pain or chest pressure. She confirms that she has not been eating or drinking much over the past couple weeks. She states that usually she drinks 6- 9 beers on a daily basis however the last week is only been able to drink 1-2 beers because she has been so weak. She denies any fevers. However, she does admit to a productive cough and some shortness of breath. Does admit to some abdominal discomfort. No new problems that she has noticed with her urinary habits. No swelling in her hands arms legs or feet. She denies any recent antibiotic use. She did state that she fell out of bed did not hit her head but does have some significant hand pain. In the field she did receive IV Solu- Medrol and DuoNeb treatments prior to presentation to the ED. Discharge Exam Gen: A&O 3 NAD HEENT: NCAT, EOMI, not icteric. External ears normal. No rhinorrhea. Moist mucous membranes. Pale conjunctiva Neck: Supple, full range of motion, no observable masses, No meningeal sign. Lungs: No Respiratory distress. CV: RRR, no edema. Abdomen: Soft, nondistended, No rebound tenderness. MSK: No joint swelling, no redness. Skin: noted wounds on back, sana red blood around rectum Neuro: Normal Gait, Grossly intact. Psych: flat affect Updated Medication List Medication Instructions Recorded Confirmed Type buspirone 15 mg tablet 15 mg PO BID 06/04/23 11/28/24 History folic acid 1 mg tablet 1 mg PO DAILY 06/04/23 11/28/24 History lisinopril 40 mg tablet 40 mg PO DAILY 06/04/23 11/28/24 History metoprolol tartrate 50 mg tablet 50 mg PO BID 06/04/23 11/28/24 History pantoprazole 40 mg tablet,delayed 40 mg PO QAM 06/04/23 11/28/24 History release sertraline 100 mg tablet 100 mg PO DAILY 06/04/23 11/28/24 History magnesium oxide 400 mg (241.3 mg 400 mg PO QAM #30 tabs 06/09/23 11/28/24 Rx magnesium) tablet Hospital Stay Data Consultations 11/28/24 20:52 ED Decision to Admit Stat 11/28/24 21:37 Consult Orthopedic Surgery Routine 11/29/24 00:35 Consult Gastroenterology Routine Diagnostic Imagining Performed 11/28/24 18:27 CT abd pelvis IV con only Stat Pending Results Patient Have Any Pending Studies at Discharge: No Discharge Instructions Given to Patient (Per Discharging Provider) 1. Transfer to [facility] Total Time Total Time Spent Total Time Spent (In Minutes): I spent a total of 35 minutes in direct patient care, including [id number] time with the patient and/or family, reviewing medical records, ordering and reviewing diagnostic tests, and coordinating care with other healthcare providers. This time includes: history taking, physical examination, medical decision making, counseling, ECG interpretation, imaging interpretation, lab interpretation, orders, and education, excluding time spent in the performance of separately billed services.
[2024-11-29] MEDS: LACTATED RINGER'S 1,000 ML IV SCH (19:35)
[2024-11-29 19:44] VITALS: RESP 20; O2SAT 97
[2024-11-29 19:55] VITALS: BP 133/71; TEMP 97.7
[2024-11-29 20:54] VITALS: PULSE 93
--- NOTE | 2024-11-29 22:33 | Electrocardiogram Report ---
Test Reason : Blood Pressure : */* mmHG Vent. Rate : 102 BPM Atrial Rate : 102 BPM P-R Int : 112 ms QRS Dur : 66 ms QT Int : 350 ms P-R-T Axes : -8 -3 2 degrees QTcB Int : 456 ms Poor data quality, interpretation may be adversely affected Sinus tachycardia Low voltage QRS Nonspecific ST and T wave abnormality Abnormal ECG When compared with ECG of 22-Mar-2024 20:04, Nonspecific T wave abnormality now evident in Anterolateral leads Confirmed by Yaya Koroma ([id number]) on 11/29/2024 10:33:29 PM Referred By: REFERRED SELF Confirmed By: Yaya Koroma
== END 2024-11-29 20:30 | disposition short-term general hospital (02) | DRG 194 ==
LOC: ED 18:19 → 4W 21:37